=== PATIENT | female | born 1945 | race Caucasian/White ===

== ENCOUNTER 2017-05-30 17:32 | Inpatient (IN) | payer MEDICARE ==
[2017-05-30] MEDS ORDERED: SODIUM CHLORIDE 0.9% 1,000 ML IV ONE (17:58)
[2017-05-30] MEDS ORDERED: ACETAMINOPHEN TAB 500 MG TAB PO STA (17:59)
--- NOTE | 2017-05-30 18:04 | ED ---
Abdominal Pain HPI - General Chief Complaint: Abdominal Pain Stated Complaint: Kidney Stone Time Seen by Provider: 05/30/17 17:40 Source: patient, EMS, RN notes reviewed, old records reviewed Mode of arrival: EMS Limitations: no limitations - History of Present Illness Initial Comments: This is a 71-year-old female presents emergency Department from a transfer from [facility]. Patient was diagnosed with acute pyelonephritis. She reports that she has known kidney injuries and is supposed to see a repairer recreational vehicle. She reports that while at [facility] she had an ultrasound of her kidneys, and x-rays and lab work obtained. She reports that she was told that she had a worsening kidney infection. Patient states that she did receive some blood cultures and lactic acid were completed at that time. Patient was started on IV Levaquin. Was also noted the patient had poor renal function of the BUN of 45 and creatinine of 2.7. Patient had positive leukocyte esterase, multiple white blood cells, 1+ blood in her urine. Patient states that she does not know the name of her repairer recreational vehicle or urologist who she was supposed to see within the next week that is inflamed. Patient has a history of diabetes. Patient's poor report was relayed to Dr. Hart From the physician at [facility]. - Related Data Home Medications Medication Instructions Recorded Confirmed Aspirin 81 mg PO DAILY 02/05/14 04/06/14 Atenolol/Chlorthalidone [Tenoretic 1 each PO DAILY 02/05/14 04/06/14 50 Tablet] Fenofibrate [Tricor] 160 mg PO ONCE 02/05/14 04/06/14 Insuln Asp Prt/Insulin Aspart 37 unit SQ DIRECTED 02/05/14 04/06/14 [NovoLOG MIX 70-30 VIAL] Insuln Asp Prt/Insulin Aspart 65 units SQ DIRECTED 02/05/14 04/06/14 [NovoLOG MIX 70-30 VIAL] Loratadine [Claritin] 10 mg PO DAILY 02/05/14 04/06/14 Montelukast [Singulair] 10 mg PO DAILY 02/05/14 04/06/14 Pantoprazole Sodium [Protonix] 40 mg PO DAILY 02/05/14 04/06/14 metFORMIN HCL [Glucophage] 1,000 mg PO BID 02/05/14 04/06/14 Cyclobenzaprine [Flexeril] 10 mg PO DIRECTED PRN 03/17/14 04/06/14 Naproxen [Naprosyn] 250 mg PO BID 03/17/14 04/06/14 Allergies Allergy/AdvReac Type Severity Reaction Status Date / Time Penicillins Allergy Rash/Hives Verified 04/05/14 09:21 Review of Systems ROS Statement: Those systems with pertinent positive or pertinent negative responses have been documented in the HPI. ROS Other: All systems not noted in ROS Statement are negative. Past Medical History Past Medical History: Diabetes Mellitus, Eye Disorder, GERD/Reflux, Hyperlipidemia, Hypertension, Osteoarthritis (OA), Skin Disorder Additional Past Medical History / Comment(s): POST MENOPAUSAL History of Any Multi-Drug Resistant Organisms: None Reported Past Surgical History: Section, Cholecystectomy, Tonsillectomy Additional Past Surgical History / Comment(s): CATARACT SX Additional Past Anesthesia/Blood Transfusion Reaction / Comment(s): STATED " TOOK A LONG TIME WAKING UP FROM ANESTHESIA" Past Psychological History: No Psychological Hx Reported Smoking Status: Never smoker Past Alcohol Use History: None Reported Past Drug Use History: None Reported General Exam - General Exam Comments Initial Comments: Is a 71-year-old female. Patient does not appear to be in any acute distress. Limitations: no limitations General appearance: alert, in no apparent distress Head exam: Present: atraumatic, normocephalic, normal inspection Eye exam: Present: normal appearance, PERRL, EOMI. Absent: scleral icterus, conjunctival injection, periorbital swelling ENT exam: Present: normal exam Neck exam: Present: normal inspection. Absent: tenderness, meningismus, lymphadenopathy Respiratory exam: Present: normal lung sounds bilaterally. Absent: respiratory distress, wheezes, rales, rhonchi, stridor Cardiovascular Exam: Present: regular rate, normal rhythm, normal heart sounds. Absent: systolic murmur, diastolic murmur, rubs, gallop, clicks GI/Abdominal exam: Present: soft, normal bowel sounds. Absent: distended, tenderness, guarding, rebound, rigid Extremities exam: Present: normal inspection, full ROM, normal capillary refill. Absent: tenderness, pedal edema, joint swelling, calf tenderness Back exam: Present: normal inspection, CVA tenderness (L) (Left Sided CVA tenderness) Neurological exam: Present: alert, oriented X3, CN II-XII intact Psychiatric exam: Present: normal affect, normal mood Skin exam: Present: warm, dry, intact, normal color. Absent: rash Course Vital Signs 05/30/17 05/30/17 17:38 18:34 Temperature 99.2 F Pulse Rate 119 H 114 H Respiratory 18 18 Rate Blood Pressure 143/68 138/65 O2 Sat by Pulse 97 96 Oximetry Medical Decision Making - Medical Decision Making 69-year-old female with 1 day of left-sided flank pain. Patient started to have leukocytosis of 19.5. Lab work was repeated and her white blood cell call went up to 30. As well as elevated BUN/creatinine of BUN 45 and creatinine 2.7. Patient is given IV hydration. Patient was started on Levaquin. I discussed this case with our practitioner. Patient also be started on cefepime. Given Tylenol. Patient will be admitted at this time with consult for nephrology due to elevated kidney function. - Lab Data Result diagrams: 05/30/17 18:30 05/30/17 18:30 Lab Results 05/30/17 05/30/17 Range/Units 18:30 18:30 WBC 30.7 H* (3.8-10.6) k/uL RBC 3.92 (3.80-5.40) m/uL Hgb 11.6 (11.4-16.0) gm/dL Hct 34.0 (34.0-46.0) % MCV 86.7 (80.0-100.0) fL MCH 29.6 (25.0-35.0) pg MCHC 34.2 (31.0-37.0) g/dL RDW 14.0 (11.5-15.5) % Plt Count 309 (150-450) k/uL Sodium 141 (137-145) mmol/L Potassium 4.6 (3.5-5.1) mmol/L Chloride 110 H (98-107) mmol/L Carbon Dioxide 16 L (22-30) mmol/L Anion Gap 15 mmol/L BUN 47 H (7-17) mg/dL Creatinine 3.08 H (0.52-1.04) mg/dL Est GFR (MDRD) Af Amer 18 (>60 ml/min/1.73 sqM) Est GFR (MDRD) Non-Af 15 (>60 ml/min/1.73 sqM) Glucose 193 H (74-99) mg/dL Calcium 8.5 (8.4-10.2) mg/dL Total Bilirubin 0.5 (0.2-1.3) mg/dL AST 40 H (14-36) U/L ALT 36 (9-52) U/L Alkaline Phosphatase 73 (38-126) U/L Total Protein 6.3 (6.3-8.2) g/dL Albumin 3.4 L (3.5-5.0) g/dL - Radiology Data Radiology results: report reviewed Ultrasound from within the hospital was reviewed and negative for any acute process. Disposition Clinical Impression: Pyelonephritis, Acute renal insufficiency, Sepsis Disposition: ADMITTED IP TO THIS HOSP Condition: Stable Referrals: Lauren Howard NPC [Primary Care Provider] - 1-2 days Time of Disposition: 18:22
[2017-05-30] MEDS ORDERED: CEFEPIME 2 GM in SODIUM CHLORIDE 0.9% 50 ML IVPB STA (18:20)
[2017-05-30] MEDS ORDERED: MORPHINE SULFATE 4 MG/ML SYRINGE IVP STA (18:21)
[2017-05-30] MEDS ORDERED: IBUPROFEN 400 MG TAB PO PRN (18:38)
[2017-05-30] MEDS ORDERED: BISACODYL 5 MG TABLET.DR PO PRN (18:38)
[2017-05-30] MEDS ORDERED: ONDANSETRON 4 MG/2 ML VIAL IVP PRN (18:38)
[2017-05-30] MEDS ORDERED: NALOXONE 0.4 MG/ML 1 ML VIAL IV PRN (18:38)
[2017-05-30] MEDS ORDERED: MORPHINE SULFATE 4 MG/ML SYRINGE IV PRN (18:38)
[2017-05-30 18:43] LABS: CH 29.5; CHCM 34.2; HDW 3.06; HGB 11.6 gm/dL (11.4-16.0); MCH 29.6 pg (25.0-35.0); MCHC 34.2 g/dL (31.0-37.0); MCV 86.7 fL (80.0-100.0); Mean Platelet Volume 7.3; RBC 3.92 m/uL (3.80-5.40); WBC (Perox) 31.27
[2017-05-30] MEDS ORDERED: CYCLOBENZAPRINE 10 MG TAB PO PRN (18:47)
[2017-05-30 18:48] LABS: WBC 30.7 k/uL (3.8-10.6)
[2017-05-30] MEDS: SODIUM CHLORIDE 0.9% 1,000 ML IV SCH (18:51)
[2017-05-30 18:54] LABS: Calcium 8.5 mg/dL (8.4-10.2); Potassium 4.6 mmol/L (3.5-5.1); Total Bilirubin 0.5 mg/dL (0.2-1.3); Total Protein 6.3 g/dL (6.3-8.2)
[2017-05-30 19:05] LABS: Add Differential Manual Differential
[2017-05-30 19:09] LABS: Band Neutrophils % 9 %; Nucleated Red Blood Cells 0 /100 WBC (0-0); Total Cells Counted 200
[2017-05-30 19:10] LABS: Manual Review Performed; RBC Morphology Normal
[2017-05-30 19:51] VITALS: BMI 34.3
[2017-05-30 21:09] LABS: Glucose,Whole Blood 166 mg/dL (75-99)
[2017-05-30] MEDS: INSULIN LISPRO (humaLOG) 300 UNIT/3 ML VIAL SQ SCH (21:29)
[2017-05-30] MEDS: metFORMIN 500 MG TAB PO SCH ×2 (21:30→21:34)
[2017-05-30 23:02] LABS: Appearance,Urine Cloudy (Clear); Bilirubin,Urine Negative (Negative); Glucose,Urine (UA) 1+ (Negative); Ketones,Urine Negative (Negative); Leukocyte Esterase,Urine Large (Negative); Mucus,Urine Rare /hpf; Nitrite,Urine Negative (Negative); Particle Count 3258; Protein,Urine 2+ (Negative); RBC,Urine 11 /hpf (0-5); Specific Gravity,Urine 1.009 (1.001-1.035); Squamous Epithelial Cell,Urine 2 /hpf (0-4); UA Billing (MACRO vs. MICRO) MICRO; Urobilinogen,Urine <2.0 mg/dL (<2.0); WBC,Urine >182 /hpf (0-5)
[2017-05-31] MEDS: SODIUM CHLORIDE 0.9% 1,000 ML IV SCH ×3 (02:35→21:49)
[2017-05-31] MEDS: MAGNESIUM OXIDE 400 MG TAB PO SCH ×3 (02:36→21:36)
[2017-05-31 07:14] LABS: Glucose,Whole Blood 234 mg/dL (75-99)
[2017-05-31] MEDS: INSULIN LISPRO (humaLOG) 300 UNIT/3 ML VIAL SQ SCH ×4 (08:45→21:35)
[2017-05-31] MEDS: FERROUS SULFATE 325 MG TAB PO SCH (08:57)
[2017-05-31] MEDS: ASPIRIN 81 MG CHEW PO SCH (08:57)
[2017-05-31] MEDS: GABAPENTIN 100 MG CAP PO SCH (08:58)
[2017-05-31] MEDS: ATENOLOL 50 MG TAB PO SCH (08:58)
[2017-05-31] MEDS: MULTIVITAMINS, THERA 1 EACH TAB PO SCH (08:58)
[2017-05-31] MEDS: FENOFIBRATE 160 MG TAB PO SCH (08:58)
[2017-05-31] MEDS: MONTELUKAST 10 MG TAB PO SCH (08:58)
[2017-05-31] MEDS: ATORVASTATIN 10 MG TAB PO SCH (08:59)
[2017-05-31] MEDS: CHLORTHALIDONE 25 MG TAB PO SCH (08:59)
[2017-05-31] MEDS: LORATADINE 10 MG TAB PO SCH (08:59)
[2017-05-31] MEDS: HEPARIN SODIUM,PORCINE 5,000 UNIT/ML 1 ML VIAL SQ SCH ×2 (08:59→21:36)
[2017-05-31] MEDS ORDERED: INSULIN LISPRO (humaLOG) 300 UNIT/3 ML VIAL SQ SCH ×2 (09:00→21:00)
[2017-05-31] MEDS ORDERED: CEFEPIME 2 GM in SODIUM CHLORIDE 0.9% 50 ML IVPB SCH (09:00)
[2017-05-31] MEDS ORDERED: PANTOPRAZOLE 40 MG/10 ML VIAL IV SCH (09:00)
[2017-05-31] MEDS ORDERED: NON-FORMULARY DRUG (Atenolol/Chlorthalidone [Atenolol-Chlorthalidone 50-25] 1 TAB) PO SCH (09:00)
[2017-05-31] MEDS ORDERED: PANTOPRAZOLE 40 MG TABLET PO SCH (09:00)
[2017-05-31] MEDS: INSULIN NPL/INSULIN LISPRO 100 UNIT/ML 10 ML VIAL (Humalog 75/25) SQ SCH ×2 (10:20→21:34)
--- NOTE | 2017-05-31 10:39 | HP ---
HISTORY AND PHYSICAL DATE OF SERVICE: 05/30/2017. CHIEF COMPLAINT: Abdominal pain. HISTORY OF PRESENT ILLNESS: This 71-year-old woman with a past medical history of multiple medical problems including diabetes mellitus, hypertension, hyperlipidemia, history of DJD, history of being followed by Dr. Lauren Howard in the outpatient setting is complaining of abdominal pain. The patient apparently had pain in the left loin area, which was radiating into the groin area. The patient was seen by [facility] and transferred to [facility] for further evaluation and treatment. The patient also had renal failure, reported to be acute kidney injury. The patient had ultrasound of the kidneys. The creatinine was found to be around 3.08 on admission. White count is also elevated. The previous creatinine was 1.4 in 2014. There is no history of any rigors, chills. No history of headache, loss of consciousness or seizures. PAST MEDICAL HISTORY: History of diabetes, hypertension, hyperlipidemia, DJD, section. MEDICATIONS: Medications prior to admission include home medication: 1. Magnesium oxide 400 mg p.o. b.i.d. 2. Protonix 40 mg daily. 3. Multivitamins 1 p.o. daily. 4. Singular 10 mg q.h.s. 5. Humalog 60 q.a.m. 6. Humalog 30 subcu q.h.s. 7. Motrin 800 mg t.i.d. p.r.n. 8. Neurontin 100 mg p.o. daily. 9. Iron sulfate 650 mg p.o. daily. 10.Tricor 160 mg daily. 11.Lipitor 10 mg. 12.Atenolol chlorthalidone 50/25 p.o. daily. 13.Aspirin 81 mg p.o. daily. ALLERGIES: PENICILLIN. FAMILY HISTORY: No history of heart disease or strokes in the family. SOCIAL HISTORY: No history of smoking, no history of alcohol. REVIEW OF SYSTEMS: ENT: No diminished hearing or vision. CARDIOVASCULAR: No angina. RESPIRATORY: No cough or hemoptysis. GI: As mentioned earlier. : As mentioned earlier. NERVOUS SYSTEM: No numbness or weakness. ALLERGY/IMMUNOLOGY: No asthma or hayfever. MUSCULOSKELETAL: As mentioned earlier. ENDOCRINE: History of diabetes mellitus. CONSTITUTIONAL: As mentioned earlier. DERMATOLOGY: Negative. RHEUMATOLOGY: Negative. PSYCHIATRY: As mentioned earlier. PHYSICAL EXAMINATION: Patient is alert and oriented x3. Pulse is 108, blood pressure 120/58, respirations 16, temperature 98.6, pulse ox 97% on room air. HEENT: Conjunctivae normal. NECK: No jugular venous distention. No carotid bruit. No lymph node enlargement. CARDIOVASCULAR: S1, S2 muffled. No S3, S4. RESPIRATORY: Breath sounds diminished at the bases. A few scattered rhonchi. No crackles. ABDOMEN: Soft. Obese. Tenderness in the left renal angle present. Some tenderness in the anterior abdomen. No guarding, no rigidity. No mass is appreciated. Bowel sounds present. No ascites. No hepatosplenomegaly. LEGS: No edema, no swelling. NERVOUS SYSTEM: Higher functions as mentioned. Moves all four limbs. No focal deficits. LYMPHATICS: No lymphadenopathy in the neck, axillae, groin. SKIN: No rash, ulcer, bleeding. JOINTS: No active deforming arthroplasty. LABS: WBC 13.7, creatinine 3.08. ASSESSMENT: 1. Acute pyelonephritis left with a possible sepsis. 2. Increased WBC. 3. Increased creatinine with acute kidney failure, multifactorial. 4. Nephrolithiasis. 5. Diabetes type 2. 6. Gastroesophageal reflux disease. 7. Hypertension. 8. Hyperlipidemia. 9. History of degenerative joint disease. RECOMMENDATIONS AND DISCUSSION: In this 71-year-old woman who presented with multiple complex medical issues, will monitor the patient closely. Continue the current medications, continue symptomatic treatment. Otherwise at this time, I recommend IV fluids, broad-spectrum IV antibiotics. Nephrology consultations. Infectious disease evaluation. I will obtain cultures. Guarded prognosis because of multiple complex medical issues. Further recommendations to follow. Symptomatic treatment. Monitor blood pressures closely. DVT prophylaxis. Further recommendations to follow. Prognosis is guarded. MMODL / IJN: [id number] / MTDD
[2017-05-31 11:58] LABS: Glucose,Whole Blood 196 mg/dL (75-99)
[2017-05-31] MEDS: IOHEXOL 350 MG/ML 25 ML BOTTLE (ORAL USE) PO PRN ×2 (13:04→13:59)
[2017-05-31 14:11] LABS: Hemoglobin A1C 6.5 % (4.2-6.1)
--- NOTE | 2017-05-31 14:50 | CT ---
EXAMINATION TYPE: CT abdomen pelvis wo con DATE OF EXAM: 05/31/2017 COMPARISON: NONE HISTORY: Stomach pains,left pyelo CT DLP: 1357.3 mGycm Examination of the solid and hollow viscera is limited given the lack of contrast. FINDINGS: LUNG BASES: No evidence for nodule. No evidence for infiltrate. LIVER/GB: Cholecystectomy clips are in place. No space-occupying hepatic lesion. PANCREAS: No pancreatic mass identified. No inflammatory process seen. SPLEEN: No evidence for splenomegaly. No intrasplenic lesions seen. ADRENALS: No adrenal nodules identified. No evidence for thickening. KIDNEYS: Small nonobstructing renal calculi bilaterally. Kidneys are lobulated. No evidence for hydro nephrosis. No obvious solid renal mass on this limited examination. BOWEL: Appendix has a normal appearance. No evidence of bowel obstruction. No inflammatory process. Lymph nodes: No evidence for adenopathy greater than 1 cm. Abdominal aorta: Atheromatous changes seen. No evidence for aneurysm. Genital organs: Small uterine myometrial calcifications. Other: No significant abnormality. IMPRESSION: 1. SMALL NONOBSTRUCTING BILATERAL NEPHROLITHIASIS WITHOUT HYDRONEPHROSIS. RENAL LOBULATION DISCUSS ED ABOVE. CORRELATE CLINICALLY FOR PYELONEPHRITIS.
[2017-05-31 17:19] LABS: Glucose,Whole Blood 130 mg/dL (75-99)
[2017-05-31] MEDS: cefTRIAXone 2,000 MG in SODIUM CHLORIDE 0.9% 100 ML IVPB SCH (18:04)
--- NOTE | 2017-05-31 19:14 | CONS ---
CONSULTATION DATE OF SERVICE: 05/31/2017 REASON FOR CONSULTATION: Pyelonephritis. HISTORY OF PRESENT ILLNESS: Patient is a 71-year-old female who presented to [facility] yesterday with the chief complaint of pain in the abdominal area. The patient said the pain started yesterday; has been dull aching pain located in the lower abdominal area and some in the flank on the right side with an intensity of about 4 to 5 and radiation to the groin area. The patient felt nauseated but had no vomiting. Denies having any diarrhea or constipation. Apparently the patient was evaluated at [facility], where she was noted to have possible urinary tract infection with worsening of the kidney function. She did receive a dose of Levaquin and was sent to [facility] for further evaluation. Patient has been evaluated by the ER physician. On arrival in the ER, the patient had an elevated fever of 99.2. Urine has been significantly positive with large leukocyte esterase with many WBCs with a white count of 30,000. Cefepime was added and ID was consulted for further recommendations regarding antibiotic therapy. She also had an elevated creatinine of 3.08. REVIEW OF SYSTEMS: CONSTITUTIONAL: Positive for weakness and chills. EYES: No complaint. ENT: No complaint. RESPIRATORY: No complaint. CARDIOVASCULAR: No complaint. GENITOURINARY: As per HPI. GASTROINTESTINAL: As per HPI. MUSCULOSKELETAL: No complaint. INTEGUMENTARY: No complaint. PSYCHOLOGICAL: No complaint. ENDOCRINE: No complaint. NEUROLOGICAL: No complaint. PAST MEDICAL HISTORY: Past medical history is significant for: 1. Hypertension. 2. Hyperlipidemia. 3. Gastroesophageal reflux disease. 4. Diabetes mellitus. 5. Osteoarthritis. PAST SURGICAL HISTORY: 1. . 2. Cholecystectomy. 3. Tonsillectomy. 4. Cataract surgery. SOCIAL HISTORY: No history of smoking, drinking or any drug use. FAMILY HISTORY: No pertinent findings were noted. ALLERGIES: PENICILLIN, which she described as a rash when she was a child and localized; however, she has subsequently taken amoxicillin without any problem. Clinically doubt true penicillin allergy. CURRENT MEDICATION: Medications currently include: 1. Tylenol. 2. Aspirin. 3. Tenormin. 4. Lipitor. 5. Cefepime 2 grams q.12. 6. Chlorthalidone. 7. Lofibra. 8. Iron sulfate. 9. Neurontin. 10.Heparin. 11.Motrin. 12.Humalog. 13.Claritin. 14.Mag oxide. 15.Singulair. 16.Morphine sulfate. 17.Narcan. 18.Protonix. PHYSICAL EXAMINATION: Blood pressure is 148/70 with a pulse of 90, temperature 98. She is 98% on room air. General description is an elderly female lying in bed in no distress. No tachypnea or accessory muscle of respiration use. HEENT examination shows slight pallor. No scleral icterus. Oral mucosa membrane is dry. NECK: Trachea is central. No thyromegaly. LUNGS: Unlabored breathing. Clear to auscultation anteriorly. No wheeze or crackle. HEART: S1, S2. Regular rate and rhythm. No added sound. ABDOMEN: Soft. No tenderness. No guarding or rigidity. EXTREMITIES: No edema of feet. SKIN EXAMINATION: No rash or mass palpable. Neurologically the patient is awake, alert, oriented x3. Mood and affect normal. LABS: BUN of 47 with a creatinine of 3.08. Hemoglobin is 11.6. White count of 30,000. Urine has been significantly positive. Blood and urine cultures are currently pending. DIAGNOSTIC IMPRESSION AND PLAN: 1. Patient presented to hospital with abdominal pain, fever with significantly elevated white count and positive ( ) a pyelonephritis, right side, likely from ( ) Gram-negative pathogen in a patient who has not been on antibiotic in the recent past. Could be more likely a sensitive pathogen such as an E coli. 2. Patient with a PENICILLIN allergy who subsequently tolerated amoxicillin. Clinically doubt true penicillin allergy. PLAN: 1. We will start the patient on Rocephin 2 grams IV piggyback daily and discontinue cefepime. 2. Gentle IV fluid. 3. Depending upon the clinical response as well as cultures, will adjust antibiotics further if needed. Thank you for this consultation. Will follow this patient along with you. MMODL / IJN: [id number] /
[2017-05-31 20:36] LABS: Glucose,Whole Blood 177 mg/dL (75-99)
[2017-05-31] MEDS: ACETAMINOPHEN TAB 325 MG TAB PO PRN (21:48)
--- NOTE | 2017-05-31 22:56 | PN ---
PROGRESS NOTE DATE OF SERVICE: 05/31/2017 This 71-year-old woman who was admitted with acute pyelonephritis on the left with possible sepsis is improving significantly. Cultures are negative so far. The patient is still complaining of some abdominal pain. A CT scan of the abdomen and pelvis was requested which showed small non-obstructing bilateral nephrolithiasis without any hydronephrosis. Renal lobulation was discussed. No chest pain. No palpitations. PHYSICAL EXAM: Alert, oriented x3. Pulse is 107, blood pressure 148/70, respiration 15, temperature 98 degrees, pulse ox 98% on room air. HEENT: Conjunctivae normal. NECK: No jugular venous distention. CARDIOVASCULAR SYSTEM: S1, S2 muffled. RESPIRATION: Breath sounds diminished at the bases. No rhonchi. No crackles. ABDOMEN: Soft, non-tender. No mass palpable. LEGS: No edema. No swelling. NERVOUS SYSTEM: No focal deficit. LABS: Accu-Cheks are noted. WBC 30.7. ASSESSMENT: 1. Acute left pyelonephritis with possible sepsis. 2. Increased white count. 3. Increased creatinine with acute kidney failure, multifactorial. 4. Nephrolithiasis, bilateral .. 5. Diabetes mellitus, type 2. 6. Gastroesophageal reflux disease. 7. Hypertension. 8. Hyperlipidemia. 9. History of degenerative joint disease. RECOMMENDATIONS AND DISCUSSION: I recommend to continue current medication, continue symptomatic treatment. Continue with antibiotics. Guarded prognosis. Further recommendations to follow. MMODL / IJN: [id number] /
[2017-06-01] MEDS: SODIUM CHLORIDE 0.9% 1,000 ML IV SCH ×2 (05:38→14:19)
[2017-06-01 07:01] LABS: Basophils # (A) 0.1 k/uL (0-0.2); Basophils % (A) 0 %; CH 30.2; CHCM 34.3; Eosinophils # (A) 0.8 k/uL (0-0.7); Eosinophils % (A) 5 %; HCT 29.1 % (34.0-46.0); HDW 3.01; Luc # (Auto) 0.22; Luc % (Auto) 2; Lymphocytes # (A) 2.3 k/uL (1.0-4.8); Lymphocytes % (A) 16 %; MCH 28.8 pg (25.0-35.0); MCHC 32.5 g/dL (31.0-37.0); MCV 88.6 fL (80.0-100.0); Monocytes # (A) 0.7 k/uL (0-1.0); Monocytes % (A) 5 %; Neutrophils # (A) 10.2 k/uL (1.3-7.7); Neutrophils % (A) 72 %; RBC 3.29 m/uL (3.80-5.40); RDW 14.6 % (11.5-15.5); WBC 14.3 k/uL (3.8-10.6); WBC (Perox) 13.91
[2017-06-01 07:06] LABS: HGB 9.5 gm/dL (11.4-16.0)
[2017-06-01 07:26] LABS: Glucose,Whole Blood 81 mg/dL (75-99)
[2017-06-01 07:29] LABS: Calcium 8.3 mg/dL (8.4-10.2)
[2017-06-01] MEDS: INSULIN LISPRO (humaLOG) 300 UNIT/3 ML VIAL SQ SCH ×4 (08:00→21:22)
[2017-06-01] MEDS: LORATADINE 10 MG TAB PO SCH (08:03)
[2017-06-01] MEDS: MAGNESIUM OXIDE 400 MG TAB PO SCH ×2 (08:04→21:23)
[2017-06-01] MEDS: PANTOPRAZOLE 40 MG TABLET PO SCH (08:04)
[2017-06-01] MEDS: FERROUS SULFATE 325 MG TAB PO SCH (08:04)
[2017-06-01] MEDS: MULTIVITAMINS, THERA 1 EACH TAB PO SCH (08:04)
[2017-06-01] MEDS: ATENOLOL 50 MG TAB PO SCH (08:04)
[2017-06-01] MEDS: ASPIRIN 81 MG CHEW PO SCH (08:04)
[2017-06-01] MEDS: MONTELUKAST 10 MG TAB PO SCH (08:04)
[2017-06-01] MEDS: ATORVASTATIN 10 MG TAB PO SCH (08:04)
[2017-06-01] MEDS: GABAPENTIN 100 MG CAP PO SCH (08:04)
[2017-06-01] MEDS: CHLORTHALIDONE 25 MG TAB PO SCH (08:04)
[2017-06-01] MEDS: FENOFIBRATE 160 MG TAB PO SCH (08:04)
[2017-06-01] MEDS: HEPARIN SODIUM,PORCINE 5,000 UNIT/ML 1 ML VIAL SQ SCH ×2 (08:05→21:22)
[2017-06-01] MEDS: cefTRIAXone 2,000 MG in SODIUM CHLORIDE 0.9% 100 ML IVPB SCH (08:05)
[2017-06-01] MEDS: INSULIN NPL/INSULIN LISPRO 100 UNIT/ML 10 ML VIAL (Humalog 75/25) SQ SCH ×2 (08:19→21:21)
--- NOTE | 2017-06-01 10:39 | CONS ---
CONSULTATION REASON FOR CONSULT: Renal failure. DATE OF CONSULTATION: 05/31/2017. HISTORY OF PRESENT ILLNESS: The patient is a 71-year-old female who was admitted to the hospital with complaints of pain on her left side of the abdomen somewhat towards the back with no radiation to the groin. The patient has not had any significant urinary symptoms. She initially presented to [facility] and was then transferred to [facility]. She was found to have a serum creatinine of 3.0 mg/dL. From the notes, it appears that previously her creatinine was 1.4 on 05/18/2015. The patient denies any kidney disease in the past. She denies use of any nonsteroidal anti-inflammatory agents prior to admission. Currently patient is voiding well. She is maintained on IV fluids and IV antibiotics. I do see Motrin on her current med list as well. The patient's urine culture is currently pending. However, her UA is highly suggestive of underlying urinary tract infection with WBCs more than 182 and WBC clumps noted. Her white cell count was significantly elevated at 30.7. PAST MEDICAL HISTORY: Hypertension, type 2 diabetes, hyperlipidemia, osteoarthritis. HOME MEDICATIONS: Prior to admission include insulin, Protonix, Singulair, magnesium, Motrin, Neurontin, iron, Tricor, Lipitor, atenolol, hydrochlorothiazide, aspirin. ALLERGIES: PENICILLIN. SOCIAL HISTORY: Negative for smoking, drug abuse or alcohol abuse. REVIEW OF SYSTEMS: As per HPI. Other systems negative. LABS: Sodium 141, potassium 4.6, chloride 110, CO2 16, BUN 47, serum creatinine 3.08, hemoglobin 11.6, white cell count 30.7. UA shows more than 182 WBCs with multiple WBC clumps. The abdominal CT shows nonobstructing bilateral nephrolithiasis without hydronephrosis. ASSESSMENT: 1. Acute kidney injury associated with current ongoing infection and a urinary tract infection, also exacerbated by use of nonsteroidal anti-inflammatory agents. I do see the Motrin on her current med list which I will discontinue. We will continue with the IV fluids and repeat labs in a.m. Avoid hypotension. Currently, blood pressure is not low. The patient is not on any other nephrotoxic agents. We can also hold the chlorthalidone as we are currently hydrating. 2. Urinary tract infection. Urine culture currently pending. Patient is maintained on IV antibiotics. 3. Bilateral nonobstructive nephrolithiasis with no evidence of hydronephrosis noted on CT scan. This may need further workup, which can be done as outpatient once this acute episode has resolved. 4. Type 2 diabetes, maintained on insulin at home. 5. Hyperlipidemia. PLAN: JEFRY Motrin. JEFRY chlorthalidone. Continue IV fluids and continue antibiotics and repeat labs in a.m. Thank you for this consultation. We will continue to follow the patient with you during her hospitalization. JAI / BLESSINGN: [id number] /
[2017-06-01 11:57] LABS: Glucose,Whole Blood 52 mg/dL (75-99)
[2017-06-01 11:57] LABS: Glucose,Whole Blood 70 mg/dL (75-99)
[2017-06-01 17:23] LABS: Glucose,Whole Blood 93 mg/dL (75-99)
--- NOTE | 2017-06-01 17:53 | PN ---
PROGRESS NOTE DATE OF VISIT: 06/01/2017 This 71-year-old woman who was admitted with left pyelonephritis with possible sepsis, also had renal failure. The patient was closely monitored. The patient is on IV fluids. No chest pain or palpitation. No fever. PHYSICAL EXAMINATION: On exam, alert and oriented x3. Pulse 72, blood pressure 120/59, respirations 17, temperature 97.5, pulse ox 98% on room air. HEENT: Conjunctivae normal. NECK: No jugular venous distention. CARDIOVASCULAR: S1 and S2 muffled. RESPIRATORY: Breath sounds diminished at the bases. Scattered rhonchi. No crackles. Abdomen is soft, nontender, no mass palpable. LEGS: No edema. NERVOUS SYSTEM; No focal deficits. LABS: WBC 14.3, hemoglobin 9.5. Creatinine is 2.40. ASSESSMENT: 1. Acute left pyelonephritis with possible sepsis, present on admission. 2. Acute renal failure possibly prerenal renal failure with acute tubular necrosis. 3. Increased WBC. 4. Nephrolithiasis, bilateral. 5. Diabetes mellitus type 2. 6. Gastroesophageal reflux disease. 7. Hypertension. 8. Hyperlipidemia. 9. History of degenerative joint disease. RECOMMENDATIONS AND DISCUSSION: Recommend to continue current medications. Continue with monitoring and symptomatic treatment. Otherwise, continue with IV fluids. Repeat labs. Continue with the antibiotics. Patient is on IV Rocephin 2 grams daily. Follow the cultures. Nephrology input appreciated. Guarded prognosis. Further recommendations to follow. MMODL / BLESSINGN: [id number] /
[2017-06-01 20:27] LABS: Glucose,Whole Blood 133 mg/dL (75-99)
[2017-06-01] MEDS: Acetaminophen-Codeine 300-30mg TAB PO PRN (21:23)
[2017-06-02] MEDS: SODIUM CHLORIDE 0.9% 1,000 ML IV SCH ×4 (02:10→17:17)
[2017-06-02 06:44] LABS: Basophils # (A) 0.1 k/uL (0-0.2); Basophils % (A) 1 %; CH 29.6; CHCM 33.4; Eosinophils % (A) 6 %; HCT 30.7 % (34.0-46.0); HDW 3.02; HGB 10.1 gm/dL (11.4-16.0); Luc # (Auto) 0.23; Luc % (Auto) 1; Lymphocytes # (A) 2.6 k/uL (1.0-4.8); Lymphocytes % (A) 16 %; MCH 29.4 pg (25.0-35.0); MCV 89.2 fL (80.0-100.0); Mean Platelet Volume 7.9; Monocytes # (A) 0.7 k/uL (0-1.0); Monocytes % (A) 4 %; Neutrophils # (A) 11.9 k/uL (1.3-7.7); Neutrophils % (A) 72 %; RBC 3.44 m/uL (3.80-5.40); RDW 14.7 % (11.5-15.5); WBC 16.4 k/uL (3.8-10.6); WBC (Perox) 17.43
[2017-06-02 06:59] LABS: Calcium 8.4 mg/dL (8.4-10.2); Potassium 4.2 mmol/L (3.5-5.1)
[2017-06-02 07:28] LABS: Glucose,Whole Blood 72 mg/dL (75-99)
[2017-06-02] MEDS: INSULIN LISPRO (humaLOG) 300 UNIT/3 ML VIAL SQ SCH ×4 (08:18→21:14)
[2017-06-02] MEDS: PANTOPRAZOLE 40 MG TABLET PO SCH (08:19)
[2017-06-02] MEDS: ASPIRIN 81 MG CHEW PO SCH (08:19)
[2017-06-02] MEDS: MONTELUKAST 10 MG TAB PO SCH (08:19)
[2017-06-02] MEDS: ATENOLOL 50 MG TAB PO SCH (08:20)
[2017-06-02] MEDS: CHLORTHALIDONE 25 MG TAB PO SCH (08:20)
[2017-06-02] MEDS: FENOFIBRATE 160 MG TAB PO SCH (08:20)
[2017-06-02] MEDS: cefTRIAXone 2,000 MG in SODIUM CHLORIDE 0.9% 100 ML IVPB SCH (08:20)
[2017-06-02] MEDS: ATORVASTATIN 10 MG TAB PO SCH (08:20)
[2017-06-02] MEDS: FERROUS SULFATE 325 MG TAB PO SCH (08:20)
[2017-06-02] MEDS: MAGNESIUM OXIDE 400 MG TAB PO SCH ×2 (08:21→21:16)
[2017-06-02] MEDS: LORATADINE 10 MG TAB PO SCH (08:21)
[2017-06-02] MEDS: GABAPENTIN 100 MG CAP PO SCH (08:21)
[2017-06-02] MEDS: HEPARIN SODIUM,PORCINE 5,000 UNIT/ML 1 ML VIAL SQ SCH ×2 (08:21→21:16)
[2017-06-02] MEDS: MULTIVITAMINS, THERA 1 EACH TAB PO SCH (08:22)
[2017-06-02] MEDS: INSULIN NPL/INSULIN LISPRO 100 UNIT/ML 10 ML VIAL (Humalog 75/25) SQ SCH ×2 (08:38→21:14)
[2017-06-02] MEDS: Acetaminophen-Codeine 300-30mg TAB PO PRN ×2 (11:03→21:15)
[2017-06-02 11:07] LABS: Glucose,Whole Blood 81 mg/dL (75-99)
--- NOTE | 2017-06-02 15:03 | PN ---
PROGRESS NOTE Patient is seen for followup for acute kidney injury. She has been maintained on IV fluids. Serum creatinine has improved to 2.2 mg/dL. Currently, there are no fluids running. Patient has tolerated oral intake. She is maintained on ceftriaxone. Urine culture drawn sent out from here did not reveal any growth. However, patient had already received antibiotics I believe. Initial creatinine was 3 mg/dL. The CT scan did not reveal any significant findings in the kidney except from bilateral small nonobstructive calculi. EXAMINATION: Patient is comfortable. Blood pressure is 146/69, heart rate 71 per minute. She is afebrile. Examination of the heart S1, S2. Examination lungs bilateral breath sounds are heard. ABDOMEN: Soft, nontender. Exam of lower extremities shows edema 1+ bilaterally mainly in the ankles. LIFT [employer] O[employer]ATOR exam is grossly intact. LABS: Shows sodium 144, potassium 4.2, chloride 119, CO2 is 15, BUN 30, serum creatinine 2.2. Hemoglobin 10.1 g/dL. ASSESSMENT: 1. Acute kidney injury secondary to NSAIDs, currently improving. The IV fluids have been discontinued, which is appropriate. Patient is encouraged to maintain good oral intake and continue to avoid use of NSAIDs. She will need followup as outpatient if she is discharged today. 2. Non gap metabolic acidosis secondary to renal failure, currently stable. 3. Nonobstructive calculi bilaterally. No evidence of hydronephrosis on the CAT scan. 4. Urinary tract infection with current urine culture not growing any bacteria. However, I believe patient already received antibiotics prior to her arrival to [place]. Since she was a transfer from [facility]. PLAN: Patient can be discharged home and follow up as outpatient. MMODL / IJN: [id number] /
[2017-06-02 17:43] LABS: Glucose,Whole Blood 89 mg/dL (75-99)
[2017-06-02 20:13] LABS: Glucose,Whole Blood 193 mg/dL (75-99)
--- NOTE | 2017-06-02 20:39 | PN ---
PROGRESS NOTE DATE OF SERVICE: 06/02/2017 This is a progress note. INTERVAL HISTORY: This 71-year-old woman who was admitted with left side pyelonephritis, also had a possible early sepsis. The patient has acute renal failure. Creatinine is improving significantly. No chest pain. No palpitations. Patient on broad-spectrum IV antibiotics. The cultures are negative so far. Nephrology following the patient. EXAM: Alert and oriented times three. Pulse 70. Blood pressure 158/69, respiratory rate 16, temperature 98.2, pulse ox 98% on room air. HEENT: Conjunctivae normal. Neck: No jugular venous distention. Cardiovascular: S1, S2 muffled. Respiratory: Breath sounds diminished at the bases. No rhonchi. No crackles. Abdomen is soft, nontender. No mass palpable. No renal angle tenderness. Central nervous system: No focal deficits. LABS: WBC 16.2, hemoglobin 10.1, creatinine is 2.20, abdominal pelvis CAT scan noted. ASSESSMENT: 1. Acute left pyelonephritis with sepsis present on admission. 2. Acute renal failure possibly prerenal renal failure with acute tubular necrosis. Present on admission. 3. Increased WBC. 4. History of nephrolithiasis bilaterally. 5. Diabetes type 2. 6. Gastroesophageal reflux disease. 7. Hypertension. 8. Hyperlipidemia. 9. History of degenerative joint disease. RECOMMENDATIONS AND DISCUSSION: Recommend to continue current medications and symptomatic treatment. Monitor closely and continue IV fluids. Monitor creatinine closely. Closely follow with Nephrology. Guarded prognosis. Further recommendations to follow. MMTIFFANIEL / BLESSINGN: [id number] /
--- NOTE | 2017-06-03 06:34 | PN ---
PROGRESS NOTE DATE OF SERVICE: 06/02/2017 REASON FOR FOLLOWUP: Urinary tract infection and pyelonephritis. INTERVAL HISTORY: The patient is afebrile. She is breathing comfortably. Denies chest pain, shortness of breath or cough. Abdominal pain has resolved. No nausea, vomiting, or any diarrhea/ PHYSICAL EXAMINATION: On examination, the patient's blood pressure 169/74 with a pulse of 78, temperature 98.5. She is 98% on room air. General description is an elderly female up in the bed in no distress. RESPIRATORY SYSTEM: Unlabored breathing. Clear to auscultation anteriorly. HEART: S1, S2. Regular rate and rhythm. ABDOMEN: Soft, no tenderness. LABS: Hemoglobin is 10.1, white count 16.4 with a BUN of 30 creatinine 2.20. DIAGNOSTIC IMPRESSION AND PLAN: Patient admitted to the hospital with abdominal pain and the patient did have a component of pyelonephritis. The patient seems to be responding to the Rocephin and will be continued while waiting for the culture to finalize. MMODL / IJN: [id number] /
[2017-06-03 07:11] LABS: Glucose,Whole Blood 78 mg/dL (75-99)
[2017-06-03 07:17] LABS: Basophils # (A) 0.1 k/uL (0-0.2); Basophils % (A) 1 %; CH 29.9; CHCM 33.7; Eosinophils % (A) 6 %; HCT 31.2 % (34.0-46.0); HDW 2.98; HGB 10.2 gm/dL (11.4-16.0); Luc # (Auto) 0.25; Luc % (Auto) 2; Lymphocytes # (A) 2.8 k/uL (1.0-4.8); Lymphocytes % (A) 17 %; MCH 29.2 pg (25.0-35.0); MCHC 32.7 g/dL (31.0-37.0); MCV 89.3 fL (80.0-100.0); Monocytes # (A) 0.7 k/uL (0-1.0); Monocytes % (A) 4 %; Neutrophils # (A) 11.4 k/uL (1.3-7.7); Neutrophils % (A) 70 %; RDW 14.9 % (11.5-15.5); WBC 16.3 k/uL (3.8-10.6); WBC (Perox) 16.06
[2017-06-03] MEDS: INSULIN LISPRO (humaLOG) 300 UNIT/3 ML VIAL SQ SCH ×4 (07:33→20:58)
[2017-06-03 07:38] LABS: Calcium 8.7 mg/dL (8.4-10.2); Potassium 4.6 mmol/L (3.5-5.1)
[2017-06-03] MEDS: PANTOPRAZOLE 40 MG TABLET PO SCH (07:50)
[2017-06-03] MEDS: ACETAMINOPHEN TAB 325 MG TAB PO PRN (07:50)
[2017-06-03] MEDS: ASPIRIN 81 MG CHEW PO SCH (07:50)
[2017-06-03] MEDS: HEPARIN SODIUM,PORCINE 5,000 UNIT/ML 1 ML VIAL SQ SCH ×2 (07:50→20:58)
[2017-06-03] MEDS: ATENOLOL 50 MG TAB PO SCH (07:50)
[2017-06-03] MEDS: FERROUS SULFATE 325 MG TAB PO SCH (07:50)
[2017-06-03] MEDS: cefTRIAXone 2,000 MG in SODIUM CHLORIDE 0.9% 100 ML IVPB SCH (07:50)
[2017-06-03] MEDS: ATORVASTATIN 10 MG TAB PO SCH (07:50)
[2017-06-03] MEDS: GABAPENTIN 100 MG CAP PO SCH (07:51)
[2017-06-03] MEDS: FENOFIBRATE 160 MG TAB PO SCH (07:51)
[2017-06-03] MEDS: MULTIVITAMINS, THERA 1 EACH TAB PO SCH (07:51)
[2017-06-03] MEDS: CHLORTHALIDONE 25 MG TAB PO SCH (07:51)
[2017-06-03] MEDS: LORATADINE 10 MG TAB PO SCH (07:51)
[2017-06-03] MEDS: MONTELUKAST 10 MG TAB PO SCH (07:52)
[2017-06-03] MEDS: MAGNESIUM OXIDE 400 MG TAB PO SCH ×2 (07:52→20:58)
[2017-06-03] MEDS: INSULIN NPL/INSULIN LISPRO 100 UNIT/ML 10 ML VIAL (Humalog 75/25) SQ SCH ×2 (09:34→20:56)
[2017-06-03 11:38] LABS: Glucose,Whole Blood 101 mg/dL (75-99)
[2017-06-03] MEDS: SODIUM CHLORIDE 0.9% 1,000 ML IV SCH ×2 (11:51→20:48)
[2017-06-03] MEDS: Acetaminophen-Codeine 300-30mg TAB PO PRN ×2 (13:36→22:11)
[2017-06-03 17:42] LABS: Glucose,Whole Blood 123 mg/dL (75-99)
--- NOTE | 2017-06-03 18:23 | P.PN ---
Subjective Date of service 06/03/2017. Progress note being dictated for Dr. Mendez. Interval history: This is a 71-year-old female admitted with acute left pyelonephritis with sepsis, acute renal failure and multiple other medical issues. Maintained on IV antibiotics of Rocephin as per infectious disease. Renal function improving, afebrile, persistent elevated WBC ;16.3. Complained of dizziness, negative for orthostatic hypotension. Good diet intake. Denies abdominal or flank pain. Objective - Vital Signs Vital signs: Vital Signs Temp 98.6 F 06/03/17 15:00 Pulse 73 06/03/17 15:00 Resp 18 06/03/17 15:11 BP 190/84 06/03/17 15:00 Pulse Ox 98 06/03/17 15:00 Intake & Output 06/02/17 06/03/17 06/03/17 18:59 06:59 18:59 Intake Total 2340 1920 480 Output Total 2 2 Balance 2338 1920 478 Weight 87.997 kg Intake: IV 1440 1920 480 Sodium Chloride 0.9% 1, 1440 1920 480 000 ml @ 120 mls/hr IV . Q8H20M [place] Rx#:[id number] Intake, IV Titration 100 Amount cefTRIAXone 2,000 mg In 100 Sodium Chloride 0.9% 100 ml @ 100 mls/hr IVPB Q24HR [place] Rx#:[id number] Oral 800 Output: Stool 2 2 Other: Voiding Method Bedside Commode Bedside Commode Bedside Commode # Voids 4 4 4 # Bowel Movements 4 - Exam PHYSICAL EXAM: VITAL SIGNS: As above GENERAL: Sitting up at side of bed, no acute distress. HEENT: Conjunctivae normal. eyes normal. NECK: No JVD. No thyroid enlargement. No LNs CARDIOVASCULAR: S1, S2 muffled. No murmur RESPIRATION: Breath sounds diminished in the bases. No rhonchi or crackles. No bronchial breathing. ABDOMEN: Soft, nontender . No guarding. no masses palpable.Bowel sounds heard. LEGS: No edema. no swelling PSYCHIATRY: Alert and oriented -3, mood and affect normal. NERVOUS SYSTEM: Cranial N 2-12 grossly normal. Moves all 4 limbs. No focal deficits. No sensory deficit. Skin: no ulcer no rash Joints: No active swelling. No inflammation. Lymphatic system. No LN neck axilla or groin. - Labs CBC & Chem 7: 06/03/17 06:59 06/03/17 06:59 Labs: Abnormal Lab Results - Last 24 Hours (Table) 06/02/17 06/03/17 06/03/17 Range/Units 20:07 06:59 06:59 WBC 16.3 H (3.8-10.6) k/uL RBC 3.50 L (3.80-5.40) m/uL Hgb 10.2 L (11.4-16.0) gm/dL Hct 31.2 L (34.0-46.0) % Neutrophils # 11.4 H (1.3-7.7) k/uL Eosinophils # 1.0 H (0-0.7) k/uL Sodium 147 H (137-145) mmol/L Chloride 117 H (98-107) mmol/L Carbon Dioxide 20 L (22-30) mmol/L BUN 25 H (7-17) mg/dL Creatinine 2.06 H (0.52-1.04) mg/dL Glucose 73 L (74-99) mg/dL POC Glucose (mg/dL) 193 H (75-99) mg/dL 06/03/17 06/03/17 Range/Units 11:36 17:21 WBC (3.8-10.6) k/uL RBC (3.80-5.40) m/uL Hgb (11.4-16.0) gm/dL Hct (34.0-46.0) % Neutrophils # (1.3-7.7) k/uL Eosinophils # (0-0.7) k/uL Sodium (137-145) mmol/L Chloride (98-107) mmol/L Carbon Dioxide (22-30) mmol/L BUN (7-17) mg/dL Creatinine (0.52-1.04) mg/dL Glucose (74-99) mg/dL POC Glucose (mg/dL) 101 H 123 H (75-99) mg/dL Microbiology - Last 24 Hours (Table) 05/31/17 01:46 Blood Culture - Preliminary Blood No Growth after 72 hours Assessment and Plan Plan: 1. Acute left pyelonephritis with sepsis, present on admission 2. Acute renal failure possibly prerenal renal failure with acute tubular necrosis, present on admission 3. Leukocytosis 4. History of nephrolithiasis- bilateral 3. Diabetes mellitus type 2 Plan: Continue with current medication regime, monitoring, and symptomatic treatment. Maintain IV antibiotic therapy as per ID. Follow closely with nephrology. Discharge planning in progress for tomorrow. The impression and plan of care has been dictated as directed. : I performed a H&P examination of this patient and discussed the same with the dictator. I agree with the dictator's note. Any additional findings/opinions/ etc. will be noted.
--- NOTE | 2017-06-03 19:17 | PN ---
PROGRESS NOTE Patient is seen for followup for acute kidney injury and possible urinary tract infection. The patient has been maintained on antibiotics. Her renal function has improved with serum creatinine down to 2.0 from 3.0 mg/dL. Her UA was positive for significant pyuria but cultures did not grow anything and I believe patient has had antibiotics prior to her urine culture being sent out. She is possibly going home today. On examination, blood pressure was elevated 178/80, heart rate of 77 per minute. Patient is afebrile. Examination of the heart S1, S2. Examination lungs bilateral breath sounds are heard. Abdomen is soft, nontender. Examination lower extremities shows edema, trace edema mainly in the ankles. MAID SUPERVISOR exam is grossly intact. LABS SHOW: Serum creatinine 2.0 from today, sodium 147, potassium 4.6, hemoglobin 10.2 g/dL. ASSESSMENT: 1. Acute kidney injury associated with a urinary tract infection and some degree of prerenal acute kidney injury, now improved. I will Hep-Lock the IV fluids given the hypertension and ankle edema. The patient's lungs are clear. 2. Mild hypernatremia. Will discontinue the normal saline. 3. Urinary tract infection maintained on Rocephin. 4. Bilateral nonobstructive calculi noted on ultrasound. PLAN: Hep-Lock IV fluids. Continue Tenormin for hypertension. I will add low-dose Coreg and we can use diuretics as outpatient depending upon her volume status. The patient will need followup as outpatient. Plan to Hep-Lock IV fluids, add low dose Coreg and follow up as outpatient for acute kidney injury and hypertension. MMODL / IJN: [id number] /
[2017-06-03 20:00] LABS: Glucose,Whole Blood 195 mg/dL (75-99)
[2017-06-03] MEDS ORDERED: hydrALAZINE HCL 20 MG/ML 1 ML VIAL IVP PRN (21:07)
[2017-06-03] MEDS: amLODIPine 5 MG TAB PO SCH (22:08)
[2017-06-03] MEDS: metroNIDAZOLE 500 MG TAB PO SCH (23:08)
--- NOTE | 2017-06-03 23:41 | PN ---
PROGRESS NOTE DATE OF SERVICE: 06/03/2017 REASON FOR FOLLOWUP: Pyelonephritis. INTERVAL HISTORY: The patient is afebrile. She is breathing comfortably. Denies significant chest pain, shortness of breath or cough. No abdominal pain or any diarrhea. PHYSICAL EXAMINATION: Blood pressure is 177/80 with a pulse of 73, temperature 98.6. She is 98% on room air. General description is an elderly female up in the bed in no distress. RESPIRATORY SYSTEM: Unlabored breathing. Clear to auscultation anteriorly. HEART: S1, S2. Regular rate and rhythm. ABDOMEN: Soft. No tenderness. LABS: White count is still elevated at 16.3. DIAGNOSTIC IMPRESSION/PLAN: Patient admitted to hospital with abdominal pain in a patient who did have a positive UA with a with concern about pyelonephritis, though urine cultures remain negative. With the persistently elevated white count, Flagyl will be added and we will repeat CBC tomorrow. Continue supportive care. MMODL / IJN: [id number] /
[2017-06-04 07:12] LABS: Glucose,Whole Blood 102 mg/dL (75-99)
[2017-06-04 07:26] VITALS: RESP 14
[2017-06-04] MEDS: INSULIN LISPRO (humaLOG) 300 UNIT/3 ML VIAL SQ SCH ×2 (07:37→12:06)
[2017-06-04] MEDS: MAGNESIUM OXIDE 400 MG TAB PO SCH (07:38)
[2017-06-04] MEDS: amLODIPine 5 MG TAB PO SCH (07:38)
[2017-06-04] MEDS: PANTOPRAZOLE 40 MG TABLET PO SCH (07:38)
[2017-06-04] MEDS: LORATADINE 10 MG TAB PO SCH (07:38)
[2017-06-04] MEDS: metroNIDAZOLE 500 MG TAB PO SCH ×2 (07:38→14:58)
[2017-06-04] MEDS: ASPIRIN 81 MG CHEW PO SCH (07:38)
[2017-06-04] MEDS: ATENOLOL 50 MG TAB PO SCH (07:38)
[2017-06-04] MEDS: GABAPENTIN 100 MG CAP PO SCH (07:39)
[2017-06-04] MEDS: CHLORTHALIDONE 25 MG TAB PO SCH (07:39)
[2017-06-04] MEDS: ATORVASTATIN 10 MG TAB PO SCH (07:39)
[2017-06-04] MEDS: FERROUS SULFATE 325 MG TAB PO SCH (07:39)
[2017-06-04] MEDS: FENOFIBRATE 160 MG TAB PO SCH (07:39)
[2017-06-04] MEDS: HEPARIN SODIUM,PORCINE 5,000 UNIT/ML 1 ML VIAL SQ SCH (07:40)
[2017-06-04] MEDS: MULTIVITAMINS, THERA 1 EACH TAB PO SCH (07:40)
[2017-06-04] MEDS: MONTELUKAST 10 MG TAB PO SCH (07:40)
[2017-06-04] MEDS: INSULIN NPL/INSULIN LISPRO 100 UNIT/ML 10 ML VIAL (Humalog 75/25) SQ SCH (07:45)
[2017-06-04] MEDS: cefTRIAXone 2,000 MG in SODIUM CHLORIDE 0.9% 100 ML IVPB SCH (07:45)
[2017-06-04 08:06] LABS: Basophils # (A) 0.1 k/uL (0-0.2); Basophils % (A) 1 %; CH 29.8; CHCM 33.8; Eosinophils # (A) 0.9 k/uL (0-0.7); Eosinophils % (A) 7 %; HCT 31.7 % (34.0-46.0); HDW 2.99; HGB 10.8 gm/dL (11.4-16.0); Luc # (Auto) 0.27; Luc % (Auto) 2; Lymphocytes # (A) 2.5 k/uL (1.0-4.8); Lymphocytes % (A) 18 %; MCH 30.4 pg (25.0-35.0); MCHC 34.2 g/dL (31.0-37.0); MCV 88.7 fL (80.0-100.0); Mean Platelet Volume 7.6; Monocytes # (A) 0.6 k/uL (0-1.0); Monocytes % (A) 5 %; Neutrophils # (A) 9.5 k/uL (1.3-7.7); Neutrophils % (A) 68 %; RBC 3.57 m/uL (3.80-5.40); RDW 14.7 % (11.5-15.5); WBC 13.9 k/uL (3.8-10.6); WBC (Perox) 14.45
[2017-06-04 08:33] LABS: Calcium 8.9 mg/dL (8.4-10.2); Potassium 4.7 mmol/L (3.5-5.1)
[2017-06-04] MEDS ORDERED: HYDROCHLOROTHIAZIDE 25 MG TAB PO SCH (09:00)
[2017-06-04 10:29] VITALS: PULSE 74; TEMP 98.7
[2017-06-04] MEDS ORDERED: ATENOLOL 50 MG TAB PO STA (14:10)
[2017-06-04] MEDS ORDERED: FUROSEMIDE 10 MG/ML 4 ML VIAL IV STA (14:10)
[2017-06-04 15:02] VITALS: BP 158/66
[2017-06-04 15:54] LABS: Glucose,Whole Blood 106 mg/dL (75-99)
--- NOTE | 2017-06-04 22:50 | PN ---
PROGRESS NOTE DATE OF SERVICE: 06/04/2017 REASON FOR FOLLOWUP: Possible urinary tract infection and pyelonephritis. INTERVAL HISTORY: The patient is afebrile. She is breathing comfortably. The patient denies chest pain, shortness of breath or cough. No abdominal pain or any diarrhea. PHYSICAL EXAMINATION: Blood pressure 158/66 with pulse of 74, temperature 98.7. General description is an elderly female up in the bed in no distress. RESPIRATORY SYSTEM: Unlabored breathing. Clear to auscultation anteriorly. HEART: S1, S2. Regular rate and rhythm. ABDOMEN: Soft. No tenderness. LABS: Hemoglobin 10.8, white count 13.9 with a BUN of 26, creatinine 2.09. Cultures remain negative. DIAGNOSTIC IMPRESSION/PLAN: Patient admitted to hospital with abdominal pain with a question of possible pyelonephritis. The patient has been on Rocephin; however, the white count is still elevated. It did improve with addition of the Flagyl. She will be able to finish therapy with p.o. Ceftin and Flagyl for about 10 days with outpatient followup. MMODL / IJN: [id number] /
--- NOTE | 2017-06-05 08:16 | PN ---
PROGRESS NOTE Patient is seen for followup for acute kidney injury. She was admitted to the hospital with urinary tract infection. Her renal function has been slowly improving. Serum creatinine has been staying at about 2.0 for the last couple of days. Serum creatinine was at 3.0 on initial admission. Patient is maintained on IV antibiotics. Her blood pressure has been running high. She denies any shortness of breath. IV fluids were discontinued 2 days ago. PHYSICAL EXAMINATION: On examination, blood pressure was 200/85 earlier. Heart rate 74 per minute. She is afebrile. EXAMINATION OF THE HEART: S1, S2. EXAMINATION OF THE LUNGS: Bilateral breath sounds are heard. Abdomen is soft, nontender. Examination of the lower extremities shows edema 1+ bilaterally mainly in the ankles. LABS: Labs show sodium 146, potassium 4.7, serum creatinine 2.0. Hemoglobin 10.8 g/dL. ASSESSMENT: 1. Acute kidney injury, most likely secondary to underlying urinary tract infection as well as a prerenal component on initial admission. The patient had been on Motrin as well. This was discontinued. Her previous creatinine was at 1.4 mg/dL in 2014. 2. Urinary tract infection with urine culture which showed no growth as patient had already been on antibiotics. 3. Bilateral nonobstructive nephrolithiasis. 4. Type 2 diabetes. 5. Hypertension currently uncontrolled. I will increase the Tenormin and if the blood pressure is not better, we can add hydralazine. The patient is maintained on hydrochlorothiazide. We can likely resume the chlorthalidone as an outpatient. I will also give her 1 dose of Lasix now. PLAN: Increase to Tenormin, Lasix x1, maintain hydrochlorothiazide which we can switch back to chlorthalidone as outpatient depending on her blood pressure and volume status. The patient will need follow up as outpatient in about one week's time. She is advised to continue to avoid the use of NSAIDs. MMODL / IJN: [id number] /
== END 2017-06-04 17:24 | disposition home or self-care (01) | DRG 871 ==
LOC: EC 17:32 → 5MS5E 19:03
PROVIDERS: ADMIT Internal Medicine; ATTEND Internal Medicine
DX: A41.9 Sepsis, unspecified organism (principal); N17.0 Acute kidney failure with tubular necrosis; E87.0 Hyperosmolality and hypernatremia; E87.2 Acidosis; N10 Acute pyelonephritis; E11.9 Type 2 diabetes mellitus without complications; T39.395A Adverse effect of other nonsteroidal anti-inflammatory drugs [NSAID], initial encounter; E78.5 Hyperlipidemia, unspecified; N20.0 Calculus of kidney; R53.1 Weakness; R42 Dizziness and giddiness; R60.0 Localized edema; I10 Essential (primary) hypertension; K21.9 Gastro-esophageal reflux disease without esophagitis; M19.90 Unspecified osteoarthritis, unspecified site; Z79.82 Long term (current) use of aspirin; Z79.899 Other long term (current) drug therapy; Z79.4 Long term (current) use of insulin; Z79.1 Long term (current) use of non-steroidal anti-inflammatories (NSAID); Z88.0 Allergy status to penicillin; Z71.3 Dietary counseling and surveillance; Z78.0 Asymptomatic menopausal state; Z98.49 Cataract extraction status, unspecified eye; Z90.49 Acquired absence of other specified parts of digestive tract; Z87.2 Personal history of diseases of the skin and subcutaneous tissue; Z86.69 Personal history of other diseases of the nervous system and sense organs
CPT/HCPCS: 36415; 74176; 80048; 80053; 81001; 83036; 83605; 85025; 87040; 87086; 96365; 99285

== ENCOUNTER → 2017-09-30 | Outpatient (CLI) | payer MEDICARE ==
--- NOTE | 2017-09-30 14:25 | XR ---
EXAMINATION TYPE: XR chest 2V DATE OF EXAM: 09/30/2017 COMPARISON: Chest x-ray from outside institution 05/30/2017 HISTORY: Left Rib pain, R 52 TECHNIQUE: Frontal and lateral views of the chest are obtained. FINDINGS: There is no focal air space opacity, pleural effusion, or pneumothorax seen. The cardiac silhouette size is within normal limits. Multilevel spondylosis in the thoracic spine, anterior flowi ng osteophytes may be indicative of diffuse idiopathic skeletal hyperostosis. There is eventration of the right hemidiaphragm. Patient is rotated. Prominent lung volumes may be indicative of underlying COPD. The osseous structures are intact. IMPRESSION: No acute cardiopulmonary process.
== END | disposition home or self-care (01) ==
LOC: RADXRMAIN 13:16
PROVIDERS: ATTEND Surgery
DX: R07.81 Pleurodynia (principal)
CPT/HCPCS: 71046

== ENCOUNTER 2017-10-22 08:22 | Day surgery (SDC) | payer MEDICARE ==
[2017-10-16 16:36] VITALS: BMI 33.8
[~2017-10-22 08:22] MED LIST: DEXAMETHASONE SOD PHOSPHATE 10 MG/ML 1 ML VIAL IV ONE; HEPARIN SODIUM,PORCINE 5,000 UNIT/ML 1 ML VIAL SQ ONE; LACTATED RINGERS 1,000 ML IV SCH; MIDAZOLAM 2 MG/2 ML VIAL IV PRN; MORPHINE SULFATE 4 MG/ML SYRINGE IV PRN; ONDANSETRON 4 MG/2 ML VIAL IVP ONE; Pre Op ABX Message 1 EACH MISC MISCELLANE ONE
[2017-10-22] MEDS ORDERED: ALPRAZolam 0.25 MG TAB PO STA (09:06)
[2017-10-22] MEDS ORDERED: LIDOCAINE 1% 20 ML VIAL (10MG/ML) FOR IV START INTRADERMA ONE (09:18)
[2017-10-22 09:30] LABS: Glucose,Whole Blood 137 mg/dL (75-99)
[2017-10-22] MEDS ORDERED: LIDOCAINE 1% INJ 10MG/ML (20 ML MDV) SQ ONE (10:13)
[2017-10-22] MEDS ORDERED: SODIUM BICARB 4% 5 ML VIAL (0.48 MEQ/ML) MISCELLANE ONE (10:13)
--- NOTE | 2017-10-22 11:31 | NM ---
EXAMINATION TYPE: NM sentinel node injection DATE OF EXAM: 10/22/2017 COMPARISON: NONE HISTORY: Newly diagnosed left-sided breast cancer TECHNIQUE AND FINDINGS: The procedure of sentinel lymph node injection was explained to the patient. The benefits, alternatives, and risks were discussed. An informed consent was then obtained. Overlying skin is cleaned with sterile alcohol. Lidocaine buffered with bicarbonate was used as anes thetic into the skin and subcutaneous tissue surrounding the nipple. Following this, 524 uCi Tc 99m Filtered Sulfur Colloid was injected into 4 equivalent doses at 12, 3, 6, and 9:00 position surroundi ng the left nipple intradermally. The injection sites were massaged by photo technologist for 10 minutes after injection. T he patient tolerated the procedure well without any immediate complication. The patient was kept in the radiology department for short stay after the procedure and then taken to surgery for surgical pr ocedure what is presumed intraoperative gamma probe will be used for sentinel lymph node detection. IMPRESSION: Left breast radiotracer injection for sentinel node localization as above.
[2017-10-22] MEDS ORDERED: HEPARIN SODIUM,PORCINE 5,000 UNIT/ML 1 ML VIAL SQ ONE (12:48)
[2017-10-22] MEDS ORDERED: CLINDAMYCIN 600 MG in DEXTROSE 5% IN WATER 50 ML IVPB STA ×2 (13:01)
[2017-10-22] MEDS ORDERED: HYDROmorphone (PF) 1 MG/ML ONE (13:15)
[2017-10-22] MEDS ORDERED: MIDAZOLAM 2 MG/2 ML VIAL ONE (13:15)
[2017-10-22] MEDS ORDERED: PHENYLEPHRINE-0.9% NACL SYG 1 MG/10 ML SYRINGE ONE (13:15)
[2017-10-22] MEDS ORDERED: CLINDAMYCIN 150 MG/ML 4 ML VIAL ONE (13:15)
[2017-10-22] MEDS ORDERED: fentaNYL (PF) 50 MCG/ML 2 ML AMP ONE (13:15)
[2017-10-22] MEDS ORDERED: SUCCINYLCHOLINE CHLORIDE 100 MG/5 ML SYR IV ONE (13:15)
[2017-10-22] MEDS ORDERED: LIDOCAINE 1% INJ 10MG/ML (20 ML MDV) ONE (13:15)
[2017-10-22] MEDS ORDERED: PROPOFOL 10 MG/ML 20 ML VIAL IV ONE (13:15)
[2017-10-22] MEDS ORDERED: ePHEDrine SULFATE/0.9% NACL/PF 50 MG/5 ML SYRINGE IV ONE (13:15)
[2017-10-22] MEDS ORDERED: SODIUM CHLORIDE 0.9% 50 ML with CLINDAMYCIN 600 MG IV ONE ×2 (13:30)
[2017-10-22] MEDS ORDERED: METHYLENE BLUE 10 MG/ML (10 ML VIAL) INJ ONE (13:30)
[2017-10-22] MEDS ORDERED: LACTATED RINGERS 1,000 ML IV ONE (15:12)
--- NOTE | 2017-10-22 15:24 | P.OP ---
Date of Procedure: 10/22/17 Preoperative Diagnosis: Left breast cancer Postoperative Diagnosis: Same Procedure(s) Performed: Lymphatic mapping left side, left sentinel node biopsy, left breast lumpectomy with tissue rearrangement and BioSorb placement, left breast tissue painted for orientation Implants: biozorb Anesthesia: GETA Estimated Blood Loss (ml): 20 IV fluids (ml): 415 Pathology: other (Left breast tissue, left axillary sentinel node biopsy) Condition: stable Disposition: PACU Indications for Procedure: Left breast cancer Operative Findings: Left breast cancer, sentinel node negative for cancer on frozen section Description of Procedure: The patient was taken to the operating room and following induction of general anesthesia the left breast and axilla were prepped and draped in a sterile fashion. Prior to this approximately 3 mL of half percent methylene blue were injected in the periareolar area afternoon prepped with alcohol. The breast was then massaged. The axilla was approached initially. The neoprobe was utilized to identify the area of increased radioactivity in the axilla and an incision was made. Dissection was carried down into the axillary tissue and draped in the axilla. Blue radioactive lymph node was identified. This was not blue. The lymph node was removed and the 10 second count was 2255, the 10 second background count was 12. No other lymph nodes of concern were identified. The lymph node was sent for frozen/fashion. This was negative for cancer on frozen section. The deep tissues were closed using 3-0 Vicryl suture. The skin was closed using 4-0 Monocryl. No drain was left as the area of the axilla was very dry. The breast was approached. Wide excision of the localization was performed. Radiograph of the specimen revealed that both wires were present as well as the clip and the area of concern. After assured that hemostasis was attained the cavity was measured and was approximately 10 x 6 cm. The breast tissues were mobilized using a plastic technique from the pectoralis major muscle as well as in the undersurface of the skin at several locations. In so doing we were able to reduce the size of the cavity defect. A BioSorb sizer was utilized and a 4 x 3 by was robust chosen for replacement. This was placed in mobilized tissues were able to be easily approximated over the BioSorb. Following this the skin was reapproximated using a deep 30 please correct for Vicryl suture and 4-0 Monocryl subcuticular suture. Patient tolerated the procedure in stable condition. The specimen had been painted prior to being sent to x-ray for orientation. All instrument and sponge counts were correct at the end of the case.
--- NOTE | 2017-10-22 15:25 | P.DS ---
Providers Attending physician: Funmilayo Quinteros Primary care physician: Stated None Plan - Discharge Summary New Discharge Prescriptions: No Action Montelukast [Singulair] 10 mg PO HS Fenofibrate [Lofibra] 160 mg PO DAILY Aspirin 81 mg PO DAILY Pantoprazole Sodium [Protonix] 40 mg PO DAILY Multivitamins, Thera [Multivitamin (formulary)] 1 tab PO DAILY Ferrous Sulfate [Iron (65 MG Elemental)] 650 mg PO DAILY Insulin Lispro Protamin/Lispro [humaLOG Mix 75-25 Kwikpen] 38 unit SQ HS Insulin Lispro Protamin/Lispro [humaLOG Mix 75-25 Kwikpen] 65 unit SQ QAM Acetaminophen Tab [Tylenol] 650 mg PO Q6HR PRN tab PRN Reason: Mild Pain Or Fever > 100.5 Atorvastatin [Lipitor] 20 mg PO HS Atenolol/Chlorthalidone [Tenoretic 50 Tablet] 1 each PO QAM Doxycycline Hyclate [Vibramycin] 100 mg PO BID Ergocalciferol [Vitamin D2 (DRISDOL)] 50,000 unit PO Q30D Calcitriol [Rocaltrol] 0.25 mcg PO FR Discharge Medication List Aspirin 81 mg PO DAILY 02/05/14 [History] Fenofibrate [Lofibra] 160 mg PO DAILY 02/05/14 [History] Montelukast [Singulair] 10 mg PO HS 02/05/14 [History] Pantoprazole Sodium [Protonix] 40 mg PO DAILY 02/05/14 [History] Ferrous Sulfate [Iron (65 MG Elemental)] 650 mg PO DAILY 05/30/17 [History] Insulin Lispro Protamin/Lispro [humaLOG Mix 75-25 Kwikpen] 38 unit SQ HS [History] Insulin Lispro Protamin/Lispro [humaLOG Mix 75-25 Kwikpen] 65 unit SQ QAM [History] Multivitamins, Thera [Multivitamin (formulary)] 1 tab PO DAILY 05/30/17 [History ] Acetaminophen Tab [Tylenol] 650 mg PO Q6HR PRN tab 06/03/17 [Rx] Atenolol/Chlorthalidone [Tenoretic 50 Tablet] 1 each PO QAM 10/16/17 [History] Atorvastatin [Lipitor] 20 mg PO HS 10/16/17 [History] Calcitriol [Rocaltrol] 0.25 mcg PO FR 10/16/17 [History] Doxycycline Hyclate [Vibramycin] 100 mg PO BID 10/16/17 [History] Ergocalciferol [Vitamin D2 (DRISDOL)] 50,000 unit PO Q30D 10/16/17 [History] Follow up Appointment(s)/Referral(s): Funmilayo Quinteros MD [STAFF PHYSICIAN] - 1 Week Activity/Diet/Wound Care/Special Instructions: Bra at all times Do not drive until seen by Dr. Berry Discharge Disposition: HOME SELF-CARE
[2017-10-22 15:37] VITALS: TEMP 97
[2017-10-22 15:58] LABS: Glucose,Whole Blood 135 mg/dL (75-99)
[2017-10-22 16:25] VITALS: RESP 18
[2017-10-22 16:44] VITALS: BP 155/73; PULSE 83
--- NOTE | 2017-10-23 07:54 | USB ---
EXAM: Needle localization with wire placement. CLINICAL HISTORY: Newly diagnosed carcinoma left breast on biopsy August 29, 2017. History of recent abnormal mammogram and ultrasound TECHNIQUE: Needle localization with wire placement 2 sites and subsequent surgical excision of to areas of concern in the left breast. COMPARISON: Outside left breast mammogram and ultrasound August 29, 2017 and older outside studies. FINDINGS: The procedure of needle localization with wire placement and than surgical excision was explained to the patient. Benefits, alternatives, and risks were discussed. An informed consent was then obtained. Ultrasound guidance is chosen. Case discussed with surgeon requests both biopsy- proven lesion 12:00 position to have needle localization and 1:00 ultrasound abnormal lesion is not biopsied to have needle localization. Preprocedure scanning shows heterogeneous hypoechoic mass 12:00 position with clip corresponding to biopsy-proven carcinoma and smaller vague hypoechoic area 1:00 position corresponding to prior ultrasound abnormality. The overlying skin was prepped and draped in usual sterile fashion. Lidocaine buffered with bicarbonate was used as anesthetic into the skin and subcutaneous tissue up to the level of area of concern. A 5 cm needle was used at both sites. At this point, wire was placed and the needle was withdrawn. The wire was fixed to patient's skin. Ordering surgeon requests postprocedure mammogram. This confirms satisfactory positioning of first wire relative to clip and confirms intraparenchymal breast positioning of second wire. The patient tolerated the procedure well without any immediate complication. The patient was kept in the radiology department for short stay after the procedure and then taken to surgery for surgical excision. Targeted clip and 2 wires are identified in specimen mammogram. The patient was kept in hospital for short stay after the procedure and then discharged home in stable condition. IMPRESSION: Successful, uncomplicated needle localization with wire placement and surgical excision of targeted biopsy clip and second nearby nonspecific ultrasound lesion in the left breast, full pathology results to follow. Pathology Results: Malignant A. SENTINEL LYMPH NODE, BIOPSY: LYMPH NODE WITH PARTIAL FAT REPLACEMENT, NEGATIVE FOR METASTASIS. CK7 AND DRE IMMUNOPEROXIDASE STAINS ARE CONFIRMATORY ( CONTROLS APPROPRIATE). B. LEFT BREAST, LUMPECTOMY: PENDING FIXATION, SEE ADDENDUM/FINAL DIAGNOSIS. C. AXILLARY CONTENTS: PENDING FIXATION, SEE ADDENDUM/FINAL DIAGNOSIS. ADDENDUM REPORT B. 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 LOBULAR NEOPLASIA ( ATYPICAL LOBULAR HYPERPLASIA/LOBULAR CARCINOMA IN SITU). INTRADUCTAL PAPILLOMA FORMATION FOCALLY INVOLVED BY DUCT CARCINOMA IN SITU AND ATYPICAL DUCTAL HYPERPLASIA. FIBROCYSTIC CHANGE (STROMAL FIBROSIS, CYST FORMATION, APOCRINE METAPLASIA, ADENOSIS, COLUMNAR CELL CHANGE, AND DUCT HYPERPLASIA FOCALLY WITH ATYPIA). FOCAL FOREIGN BODY REACTION WITH CALCIFICATIONS SUGGESTIVE OF DUCT RUPTURE. BIOPSY SITE CHANGE AND SCAR. C. LYMPH NODES, LEFT AXILLARY, RESECTION: TWO LYMPH NODES NEGATIVE FOR METASTASIS. Recommendation Surgical consult of the left breast. KENNEDYD
--- NOTE | 2017-10-23 08:26 | MM ---
Reason for exam: additional evaluation requested from abnormal screening. Last mammogram was performed 2 years and 4 months ago. History: Patient is postmenopausal. Family history of breast cancer in aunt at age 55. Took estrogen for 6 years 6 months beginning at age 55. [facility] Diagnostic Mammo LT Wo CAD CC and ML view(s) were taken of the left breast. Prior study comparison: June 09, 2015, bilateral MG screening mammo w CAD. May 13, 2014, bilateral MG screening mammo w CAD. ASSESSMENT: Post procedure mammogram for marker placement RECOMMENDATION: Ultrasound of the left breast in 6 months. PENDING PATHOLOGY RESULTS.
== END 2017-10-22 17:10 | disposition home or self-care (01) ==
LOC: OR 08:22
PROVIDERS: ATTEND Surgery
DX: D05.12 Intraductal carcinoma in situ of left breast (principal); D05.82 Other specified type of carcinoma in situ of left breast; D24.2 Benign neoplasm of left breast; N60.92 Unspecified benign mammary dysplasia of left breast; N60.32 Fibrosclerosis of left breast; N60.02 Solitary cyst of left breast; N60.82 Other benign mammary dysplasias of left breast; N60.22 Fibroadenosis of left breast; R92.1 Mammographic calcification found on diagnostic imaging of breast; Z80.3 Family history of malignant neoplasm of breast; E78.5 Hyperlipidemia, unspecified; I10 Essential (primary) hypertension; E83.42 Hypomagnesemia; E11.42 Type 2 diabetes mellitus with diabetic polyneuropathy; E11.319 Type 2 diabetes mellitus with unspecified diabetic retinopathy without macular edema; E11.21 Type 2 diabetes mellitus with diabetic nephropathy; Z79.4 Long term (current) use of insulin; F17.200 Nicotine dependence, unspecified, uncomplicated; K21.9 Gastro-esophageal reflux disease without esophagitis; Z79.2 Long term (current) use of antibiotics; Z79.82 Long term (current) use of aspirin; Z79.899 Other long term (current) drug therapy; M19.90 Unspecified osteoarthritis, unspecified site; Z88.0 Allergy status to penicillin
CPT/HCPCS: 19301; 38525; 88342; 88331; 88307; 88341; 77065; 76098; 19285; 19286; 38792; A4648; A9541; J2250; J1644; J1100; J2405; J2001; Q9968; J3010; J1170; J2370; J0330; J2704

== ENCOUNTER → 2018-05-29 | Outpatient (CLI) | payer MEDICARE ==
--- NOTE | 2018-05-30 08:59 | MM ---
Reason for exam: clinical finding. Last mammogram was performed 7 months ago. History: Patient is postmenopausal and has history of breast cancer at age 72. Family history of breast cancer in paternal aunt at age 55. Malignant US breast local each add LT of the left breast, October 22, 2017. Malignant US breast localization LT, October 22, 2017. Lumpectomy of the left breast, October 22, 2017. Took estrogen for 6 years 6 months beginning at age 55. Taking antineoplastic for 6 months. Indicated problem(s): pain in the left breast. Physical Findings: Nurse Summary: 3cm nodule in the left breast at 2 o'clock (nurse cw). MG 3D Diag Mammo W/Cad GERSON Bilateral CC and MLO view(s) were taken. Prior study comparison: October 22, 2017, left breast MG diagnostic mammo LT wo CAD. August 29, 2017, mammogram, performed at [facility]. The breast tissue is heterogeneously dense. This may lower the sensitivity of mammography. Finding: There is a 30 mm equal density (isodense), circumscribed round mass in the upper outer quadrant, posterior position of the left breast consistent with biopsy site with clips. These results were verbally communicated with the patient and result sheet given to the patient on 05/29/18. ASSESSMENT: Probably benign, BI-RAD 3 RECOMMENDATION: Follow-up diagnostic mammogram of the left breast in 3 months. Manage patient on a clinical basis.
== END | disposition home or self-care (01) ==
LOC: RADMAMWWP 14:40
PROVIDERS: ATTEND Internal Medicine Hematology & Oncology
DX: R92.8 Other abnormal and inconclusive findings on diagnostic imaging of breast (principal); Z85.3 Personal history of malignant neoplasm of breast
CPT/HCPCS: 77066; G0279; 77062

== ENCOUNTER 2018-09-24 03:25 | Inpatient (IN) | payer MEDICARE ==
--- NOTE | 2018-09-24 03:40 | ED ---
Lower Extremity Injury HPI - General Chief Complaint: Extremity Injury, Lower Stated Complaint: Femur Fracture Time Seen by Provider: 09/24/18 03:30 Source: EMS Mode of arrival: EMS Limitations: no limitations - History of Present Illness Initial Comments: 's patient is 72-year-old woman who presents as a transfer from outside hospital after having had a femur fracture. Patient states she had gotten up to use the bathroom then she believes she tripped and fell resulting in a right femur fracture. Patient did have workup at the other hospital he was transferred here to have orthopedic consultation. MD Complaint: hip injury -: hour(s) Injury: Hip: Right Type of Injury: blunt Place: home Severity: mild Improves With: nothing Worsens With: weight bearing, movement Context: fall Associated Symptoms: unable to bear weight - Related Data Home Medications Medication Instructions Recorded Confirmed Fenofibrate [Lofibra] 160 mg PO DAILY 02/05/14 09/24/18 Pantoprazole Sodium [Protonix] 40 mg PO DAILY 02/05/14 09/24/18 Calcitriol [Rocaltrol] 0.25 mcg PO TH 10/16/17 09/24/18 Aspirin 81 mg PO DAILY 07/31/18 09/24/18 Letrozole [Femara] 2.5 mg PO DAILY 07/31/18 09/24/18 Acetaminophen Tab [Tylenol] 325 mg PO HS 08/13/18 09/24/18 Cholecalciferol (Vitamin D3) 2,000 unit PO DAILY 08/13/18 09/24/18 [Vitamin D3] Ferrous Sulfate [Iron (65 MG 325 mg PO DAILY 08/13/18 09/24/18 Elemental)] Multivit-Min/FA/Lycopen/Lutein 1 tab PO DAILY 08/13/18 09/24/18 [Centrum Silver Tablet] Ondansetron HCl [Zofran] 8 mg PO DAILY 08/13/18 09/24/18 Atenolol [Tenormin] 50 mg PO DAILY 09/24/18 09/24/18 Atorvastatin [Lipitor] 10 mg PO HS 09/24/18 09/24/18 Furosemide [Lasix] 80 mg PO BID 09/24/18 09/24/18 Insuln Asp Prt/Insulin Aspart See Protocol SQ AC-BID 09/24/18 09/24/18 [NovoLOG MIX 70-30 VIAL] Previous Rx's Medication Instructions Recorded Sodium Bicarbonate Tab 1,300 mg PO BID #120 tab 08/04/18 amLODIPine [Norvasc] 10 mg PO DAILY #30 tab 08/04/18 cloNIDine HCL [Catapres] 0.1 mg PO BID #60 tab 08/04/18 Montelukast [Singulair] 10 mg PO HS tab 08/20/18 Allergies Allergy/AdvReac Type Severity Reaction Status Date / Time Penicillins Allergy Rash/Hives Verified 09/24/18 07:45 Review of Systems ROS Statement: Those systems with pertinent positive or pertinent negative responses have been documented in the HPI. ROS Other: All systems not noted in ROS Statement are negative. Constitutional: Denies: fever, chills, weakness Eyes: Denies: vision change Respiratory: Denies: cough, dyspnea Cardiovascular: Denies: chest pain, edema, syncope Gastrointestinal: Denies: abdominal pain, vomiting, diarrhea Genitourinary: Denies: dysuria, hematuria Musculoskeletal: Reports: as per HPI, arthralgia (Right hip) Skin: Denies: rash Neurological: Denies: headache, weakness, numbness Hematological/Lymphatic: Denies: easy bleeding Past Medical History Past Medical History: Cancer, Diabetes Mellitus, Eye Disorder, GERD/Reflux, Hyperlipidemia, Hypertension, Osteoarthritis (OA), Renal Disease Additional Past Medical History / Comment(s): LEFT BREAST, STATES CURRENT BLADDER INFECTION, NEUROPATHY FEET, HANDS, RT EYE DIABETIC RETINOPATHY, STATES LITTLE VISION History of Any Multi-Drug Resistant Organisms: None Reported Past Surgical History: Section, Cholecystectomy, Tonsillectomy, Tubal Ligation Additional Past Surgical History / Comment(s): LEFT BREAST LUMPECTOMY, D&C, GERSON CATARACT SX Past Anesthesia/Blood Transfusion Reactions: Previous Problems w/ Anesthesia Additional Past Anesthesia/Blood Transfusion Reaction / Comment(s): STATED " TOOK A LONG TIME WAKING UP FROM ANESTHESIA" Past Psychological History: No Psychological Hx Reported Smoking Status: Never smoker Past Alcohol Use History: None Reported Past Drug Use History: None Reported - Past Family History Mother Family Medical History: No Reported History Brother(s) Family Medical History: Diabetes Mellitus General Exam Limitations: no limitations General appearance: alert, in no apparent distress Head exam: Present: atraumatic, normocephalic Eye exam: Present: normal appearance. Absent: scleral icterus, conjunctival injection ENT exam: Present: normal oropharynx Neck exam: Present: normal inspection, full ROM. Absent: tenderness Respiratory exam: Present: normal lung sounds bilaterally. Absent: respiratory distress, wheezes, rales, rhonchi, stridor, chest wall tenderness Cardiovascular Exam: Present: regular rate, irregular rhythm, normal heart sounds. Absent: systolic murmur, diastolic murmur, rubs, gallop GI/Abdominal exam: Present: soft. Absent: distended, tenderness, guarding, rebound, rigid, mass Extremities exam: Present: normal inspection, tenderness, normal capillary refill. Absent: full ROM, pedal edema, calf tenderness Back exam: Present: normal inspection. Absent: CVA tenderness (R), CVA tenderness (L) Neurological exam: Present: alert, oriented X3 Skin exam: Present: warm, dry, intact, normal color. Absent: rash Course Vital Signs 09/24/18 09/24/18 09/24/18 03:26 04:32 05:34 Temperature 98.5 F 98.1 F Pulse Rate 66 69 60 Pulse Rate [ Dorsalis Pedis] Respiratory 18 20 18 Rate Blood Pressure 139/77 137/79 137/61 Blood Pressure [Left Arm] O2 Sat by Pulse 97 98 97 Oximetry 09/24/18 09/24/18 07:00 08:00 Temperature 97.5 F L 97.7 F Pulse Rate 58 L Pulse Rate [ 80 Dorsalis Pedis] Respiratory 20 16 Rate Blood Pressure 124/57 Blood Pressure 124/57 [Left Arm] O2 Sat by Pulse 97 95 Oximetry Medical Decision Making - Medical Decision Making Patient is 72-year-old woman transferred here from outside hospital for right femoral neck fracture. Case discussed with Dr. Sumner, who will admit and there are consults for presurgical clearance. - Lab Data Result diagrams: 09/24/18 03:41 09/24/18 03:41 Lab Results 09/24/18 09/24/18 09/24/18 Range/Units 03:41 03:41 03:41 WBC 17.6 H (3.8-10.6) k/uL RBC 3.75 L (3.80-5.40) m/uL Hgb 11.2 L (11.4-16.0) gm/dL Hct 33.7 L (34.0-46.0) % MCV 89.8 (80.0-100.0) fL MCH 29.9 (25.0-35.0) pg MCHC 33.3 (31.0-37.0) g/dL RDW 13.9 (11.5-15.5) % Plt Count 246 (150-450) k/uL Neutrophils % 78 % Lymphocytes % 14 % Monocytes % 4 % Eosinophils % 3 % Basophils % 0 % Neutrophils # 13.8 H (1.3-7.7) k/uL Lymphocytes # 2.4 (1.0-4.8) k/uL Monocytes # 0.7 (0-1.0) k/uL Eosinophils # 0.5 (0-0.7) k/uL Basophils # 0.1 (0-0.2) k/uL PT 10.4 (9.0-12.0) sec INR 1.0 (<1.2) APTT 23.9 (22.0-30.0) sec Sodium 139 (137-145) mmol/L Potassium 3.6 (3.5-5.1) mmol/L Chloride 95 L (98-107) mmol/L Carbon Dioxide 32 H (22-30) mmol/L Anion Gap 12 mmol/L BUN 45 H (7-17) mg/dL Creatinine 4.21 H (0.52-1.04) mg/dL Est GFR (CKD-EPI)AfAm 11 (>60 ml/min/1.73 sqM) Est GFR (CKD-EPI)NonAf 10 (>60 ml/min/1.73 sqM) Glucose 168 H (74-99) mg/dL Calcium 9.1 (8.4-10.2) mg/dL - EKG Data -: EKG Interpreted by Oh EKG shows normal: axis (Normal), intervals (Normal), QRS complexes (Normal), ST- T waves (Normal) Rate: normal (Rate 89 bpm) Interpretation: normal EKG Disposition Clinical Impression: Fracture of femur Disposition: ADMITTED IP TO THIS HOSP Condition: Poor
[2018-09-24] MEDS ORDERED: NALOXONE 0.4 MG/ML 1 ML VIAL IV PRN (03:44)
[2018-09-24] MEDS ORDERED: LOPERAMIDE 2 MG CAP PO PRN (03:47)
[2018-09-24] MEDS ORDERED: IPRATROPIUM-ALBUTEROL 3 ML NEB INHALATION PRN (03:47)
[2018-09-24 03:58] LABS: Basophils # (A) 0.1 k/uL (0-0.2); Basophils % (A) 0 %; Eosinophils # (A) 0.5 k/uL (0-0.7); Eosinophils % (A) 3 %; HCT 33.7 % (34.0-46.0); HGB 11.2 gm/dL (11.4-16.0); Lymphocytes # (A) 2.4 k/uL (1.0-4.8); Lymphocytes % (A) 14 %; MCH 29.9 pg (25.0-35.0); MCHC 33.3 g/dL (31.0-37.0); MCV 89.8 fL (80.0-100.0); Mean Platelet Volume 7.9; Monocytes # (A) 0.7 k/uL (0-1.0); Monocytes % (A) 4 %; Neutrophils # (A) 13.8 k/uL (1.3-7.7); Neutrophils % (A) 78 %; Platelet Count 246 k/uL (150-450); RBC 3.75 m/uL (3.80-5.40); RDW 13.9 % (11.5-15.5); WBC 17.6 k/uL (3.8-10.6)
[2018-09-24] MEDS: SODIUM CHLORIDE 0.9% 1,000 ML IV SCH (04:01)
[2018-09-24 04:06] LABS: Calcium 9.1 mg/dL (8.4-10.2); Potassium 3.6 mmol/L (3.5-5.1)
--- NOTE | 2018-09-24 04:06 | XR ---
EXAMINATION TYPE: XR chest 1V portable DATE OF EXAM: 09/24/2018 COMPARISON: 08/22/2018 HISTORY: Preop TECHNIQUE: Single frontal view of the chest is obtained. FINDINGS: There is no heart failure nor confluent pneumonic infiltrate. There is dual lumen right ce ntral venous catheter with tip in the superior vena cava. There are chest leads. IMPRESSION: No active cardiopulmonary disease. There is clearing of some minimal pleural fluid fernando red to old exam.
[2018-09-24 04:08] LABS: Partial Thromboplastin Time 23.9 sec (22.0-30.0); Prothrombin Time 10.4 sec (9.0-12.0)
[2018-09-24] MEDS: MORPHINE SULFATE 4 MG/ML SYRINGE IV PRN ×6 (05:32→22:50)
[2018-09-24] MEDS: IPRATROPIUM-ALBUTEROL 3 ML NEB INHALATION SCH ×4 (07:23→21:15)
[2018-09-24] MEDS ORDERED: ASPIRIN 81 MG PO SCH (09:00)
[2018-09-24] MEDS ORDERED: SODIUM BICARBONATE TAB 650 MG TAB PO SCH (09:00)
[2018-09-24] MEDS ORDERED: NON-FORMULARY DRUG (Multivit-Min/Fa/Lycopen/Lutein [Centrum Silver Tablet] 1 TAB) PO SCH (09:00)
--- NOTE | 2018-09-24 10:15 | P.HPOR ---
History of Present Illness H&P Date: 09/24/18 This is a 72-year old female who is admitted for a right hip fracture. Patient states that last night, 09/23/18, she felt dizzy as she was about to use the bathroom and fell. Patient states that she was unable to get up after this and was transported to [facility] via EMS. Patient also complains of pain in the right knee. Patient denies any loss of conciousness and states that she is not on any anticoagulants. Patient is on hemodialysis. Patient's past medical history significant for breast cancer, diabetes mellitus with neuropathy and retinopathy, GERD, hyperlipidemia, hypertension and renal disease. Patient denies any fever/chills, numbness, weakness, tingling, abdominal pain, shortness of breath or chest pain. Review of Systems See HPI. Past Medical History Past Medical History: Cancer, Diabetes Mellitus, Eye Disorder, GERD/Reflux, Hyperlipidemia, Hypertension, Osteoarthritis (OA), Renal Disease Additional Past Medical History / Comment(s): LEFT BREAST, STATES CURRENT BLADDER INFECTION, NEUROPATHY FEET, HANDS, RT EYE DIABETIC RETINOPATHY, STATES LITTLE VISION History of Any Multi-Drug Resistant Organisms: None Reported Past Surgical History: Section, Cholecystectomy, Tonsillectomy, Tubal Ligation Additional Past Surgical History / Comment(s): LEFT BREAST LUMPECTOMY, D&C, GERSON CATARACT SX Past Anesthesia/Blood Transfusion Reactions: Previous Problems w/ Anesthesia Additional Past Anesthesia/Blood Transfusion Reaction / Comment(s): STATED " TOOK A LONG TIME WAKING UP FROM ANESTHESIA" Past Psychological History: No Psychological Hx Reported Smoking Status: Never smoker Past Alcohol Use History: None Reported Past Drug Use History: None Reported - Past Family History Mother Family Medical History: No Reported History Brother(s) Family Medical History: Diabetes Mellitus Medications and Allergies Home Medications Medication Instructions Recorded Confirmed Type Fenofibrate [Lofibra] 160 mg PO DAILY 02/05/14 09/24/18 History Pantoprazole Sodium [Protonix] 40 mg PO DAILY 02/05/14 09/24/18 History Calcitriol [Rocaltrol] 0.25 mcg PO TH 10/16/17 09/24/18 History Aspirin 81 mg PO DAILY 07/31/18 09/24/18 History Letrozole [Femara] 2.5 mg PO DAILY 07/31/18 09/24/18 History Sodium Bicarbonate Tab 1,300 mg PO BID #120 tab 08/04/18 09/24/18 Rx amLODIPine [Norvasc] 10 mg PO DAILY #30 tab 08/04/18 09/24/18 Rx cloNIDine HCL [Catapres] 0.1 mg PO BID #60 tab 08/04/18 09/24/18 Rx Acetaminophen Tab [Tylenol] 325 mg PO HS 08/13/18 09/24/18 History Cholecalciferol (Vitamin D3) 2,000 unit PO DAILY 08/13/18 09/24/18 History [Vitamin D3] Ferrous Sulfate [Iron (65 MG 325 mg PO DAILY 08/13/18 09/24/18 History Elemental)] Multivit-Min/FA/Lycopen/Lutein 1 tab PO DAILY 08/13/18 09/24/18 History [Centrum Silver Tablet] Ondansetron HCl [Zofran] 8 mg PO DAILY 08/13/18 09/24/18 History Montelukast [Singulair] 10 mg PO HS tab 08/20/18 09/24/18 Rx Atenolol [Tenormin] 50 mg PO DAILY 09/24/18 09/24/18 History Atorvastatin [Lipitor] 10 mg PO HS 09/24/18 09/24/18 History Furosemide [Lasix] 80 mg PO BID 09/24/18 09/24/18 History Insuln Asp Prt/Insulin Aspart See Protocol SQ AC-BID 09/24/18 09/24/18 History [NovoLOG MIX 70-30 VIAL] Allergies Allergy/AdvReac Type Severity Reaction Status Date / Time Penicillins Allergy Rash/Hives Verified 09/24/18 07:45 Physical Examination On exam patient is lying comfortably in bed in no acute distress. Patient is alert and oriented x3. The right lower extremity is mildly shortened and externally rotated. There is tenderness to palpation over the right knee but no effusion, erythema or ecchymosis. Skin is intact. Calf is soft and nontender to palpation. Dorsalis pedis pulses 2+. The right lower extremity is warm and well perfused. Neurovascular status and circulatory status are intact. Exams of the head, neck, bilateral upper extremities and left lower extremity are within normal limits. Results CT's of the right femur and pelvis show a right femoral neck fracture. - Labs Labs: Abnormal Lab Results - Last 24 Hours (Table) 09/24/18 09/24/18 Range/Units 03:41 03:41 WBC 17.6 H (3.8-10.6) k/uL RBC 3.75 L (3.80-5.40) m/uL Hgb 11.2 L (11.4-16.0) gm/dL Hct 33.7 L (34.0-46.0) % Neutrophils # 13.8 H (1.3-7.7) k/uL Chloride 95 L (98-107) mmol/L Carbon Dioxide 32 H (22-30) mmol/L BUN 45 H (7-17) mg/dL Creatinine 4.21 H (0.52-1.04) mg/dL Glucose 168 H (74-99) mg/dL H & H 09/24/18 Range/Units 03:41 Hgb 11.2 L (11.4-16.0) gm/dL Hct 33.7 L (34.0-46.0) % Coagulation 09/24/18 Range/Units 03:41 INR 1.0 (<1.2) Result Diagrams: 09/24/18 03:41 09/24/18 03:41 Assessment and Plan Assessment: Breast cancer Diabetes mellitus with retinopathy and neuropathy GERD Hyperlipidemia Hypertension Renal disease (1) Fracture of femoral neck, right Current Visit: Yes Status: Acute Code(s): S72.001A - FRACTURE OF UNSP PART OF NECK OF RIGHT FEMUR, INIT SNOMED Code(s): 0315737 (2) Fall Current Visit: Yes Status: Acute Code(s): W19.XXXA - UNSPECIFIED FALL, INITIAL ENCOUNTER SNOMED Code(s): 8786627 Plan: 1. NPO after midnight. 2. Nonweightbearing to the right lower extremity. 3. Continue pain control. 4. CT's from [facility] are reviewed and show a right femoral neck fracture. X-rays of the right hip, right knee and pelvis are pending. 5. Right hip hemiarthroplasty is scheduled for 09/25/2018 pending medical clearance and consent.
--- NOTE | 2018-09-24 10:48 | XR ---
EXAMINATION TYPE: AP view pelvis and 2 views right hip DATE OF EXAM: 09/24/2018 COMPARISON: Correlation outside CT same day HISTORY: 72-year-old female pain after fall FINDINGS: External rotation of the right hip limits visualization of the femoral neck region. There is a very s ubtle lucency seen along the medial margin of the mid femoral neck. Mild degenerative spurring of bot h hips. IMPRESSION: External rotation of the right hip limits visualization of the femoral neck region. However, review o f the patient's outside CT performed today shows a minimally impacted, nondisplaced subcapital versus transcervical femoral neck fracture of the right hip.
--- NOTE | 2018-09-24 10:59 | XR ---
EXAMINATION TYPE: XR knee limited RT DATE OF EXAM: 09/24/2018 COMPARISON: Outside CT 10/02/2018 HISTORY: 72-year-old female with pain after fall TECHNIQUE: 3 views FINDINGS: There is some focal lucency involving the lateral femoral condyle peripherally but no well-defined fr acture seen. Small knee joint effusion. Extensor mechanism is intact. Tricompartmental degenerative s purring. IMPRESSION: 1. Focal abnormality of the subchondral bone at the posterior and peripheral articular surface of the lateral femoral condyle better seen on the patient's outside CT measuring 1.1 cm wide and 1.8 cm AP with 3 mm of articular surface depression. There are some tiny cystic changes in this region and the margins are somewhat ill-defined suggesting a more subacute injury, either an insufficiency fracture or osteochondral lesion. 2. Tricompartment osteoarthrosis with small knee joint effusion.
[2018-09-24] MEDS: ATENOLOL 50 MG TAB PO SCH (12:33)
[2018-09-24] MEDS: ONDANSETRON 4 MG TAB PO SCH (12:33)
[2018-09-24] MEDS: FERROUS SULFATE 325 MG TAB PO SCH (12:33)
[2018-09-24] MEDS: cloNIDine HCL 0.1 MG TAB PO SCH ×2 (12:33→22:42)
[2018-09-24] MEDS: PANTOPRAZOLE 40 MG TABLET PO SCH (12:33)
[2018-09-24] MEDS: CHOLECALCIFEROL 1,000 UNIT TAB PO SCH (12:34)
[2018-09-24] MEDS: LETROZOLE 2.5 MG TAB PO SCH (12:34)
[2018-09-24] MEDS: amLODIPine 10 MG TAB PO SCH (12:34)
[2018-09-24] MEDS: hydrALAZINE HCL 25 MG TAB PO SCH ×2 (12:34→22:43)
[2018-09-24 13:00] LABS: Glucose,Whole Blood 111 mg/dL (75-99)
--- NOTE | 2018-09-24 13:04 | P.NPCON ---
History of Present Illness - Reason for Consult end stage renal disease - History of Present Illness Reason for consultation: End-stage renal disease History of present illness: Patient is a 72-year-old female seen in consultation for end-stage renal disease. She is mentating on hemodialysis on a Saturday schedule via right chest permacath. Patient presented to the hospital after sustaining a fall. She is noted to have right hip fracture. She is scheduled for surgical repair tomorrow. Patient states she did not lose any consciousness when she fell. No fever or chills. No vomiting or diarrhea. Oral intake is fair. Patient has history of diastolic CHF. Hemodynamically stable. Patient is currently resting in bed. Denies significant pain. Last hemodialysis was on Saturday. Vital signs are stable. General: The patient appeared well nourished and normally developed. HEENT: Head exam is unremarkable. Neck is without jugular venous distension. LUNGS: Lungs are clear to auscultation and percussion. Breath sounds decreased. HEART: Rate and Rhythm are regular. First and second heart sounds normal. No murmurs, rubs or gallops. ABDOMEN: Abdominal exam reveals normal bowel sounds. Non-tender and non- distended. No evidence of peritonitis. EXTREMITITES: No clubbing, cyanosis, or edema. Past Medical History Past Medical History: Cancer, Diabetes Mellitus, Eye Disorder, GERD/Reflux, Hyperlipidemia, Hypertension, Osteoarthritis (OA), Renal Disease Additional Past Medical History / Comment(s): LEFT BREAST, STATES CURRENT BLADDER INFECTION, NEUROPATHY FEET, HANDS, RT EYE DIABETIC RETINOPATHY, STATES LITTLE VISION History of Any Multi-Drug Resistant Organisms: None Reported Past Surgical History: Section, Cholecystectomy, Tonsillectomy, Tubal Ligation Additional Past Surgical History / Comment(s): LEFT BREAST LUMPECTOMY, D&C, GERSON CATARACT SX Past Anesthesia/Blood Transfusion Reactions: Previous Problems w/ Anesthesia Additional Past Anesthesia/Blood Transfusion Reaction / Comment(s): STATED " TOOK A LONG TIME WAKING UP FROM ANESTHESIA" Past Psychological History: No Psychological Hx Reported Smoking Status: Never smoker Past Alcohol Use History: None Reported Past Drug Use History: None Reported - Past Family History Mother Family Medical History: No Reported History Brother(s) Family Medical History: Diabetes Mellitus Medications and Allergies Home Medications Medication Instructions Recorded Confirmed Type Fenofibrate [Lofibra] 160 mg PO DAILY 02/05/14 09/24/18 History Pantoprazole Sodium [Protonix] 40 mg PO DAILY 02/05/14 09/24/18 History Calcitriol [Rocaltrol] 0.25 mcg PO TH 10/16/17 09/24/18 History Aspirin 81 mg PO DAILY 07/31/18 09/24/18 History Letrozole [Femara] 2.5 mg PO DAILY 07/31/18 09/24/18 History Sodium Bicarbonate Tab 1,300 mg PO BID #120 tab 08/04/18 09/24/18 Rx amLODIPine [Norvasc] 10 mg PO DAILY #30 tab 08/04/18 09/24/18 Rx cloNIDine HCL [Catapres] 0.1 mg PO BID #60 tab 08/04/18 09/24/18 Rx Acetaminophen Tab [Tylenol] 325 mg PO HS 08/13/18 09/24/18 History Cholecalciferol (Vitamin D3) 2,000 unit PO DAILY 08/13/18 09/24/18 History [Vitamin D3] Ferrous Sulfate [Iron (65 MG 325 mg PO DAILY 08/13/18 09/24/18 History Elemental)] Multivit-Min/FA/Lycopen/Lutein 1 tab PO DAILY 08/13/18 09/24/18 History [Centrum Silver Tablet] Ondansetron HCl [Zofran] 8 mg PO DAILY 08/13/18 09/24/18 History Montelukast [Singulair] 10 mg PO HS tab 08/20/18 09/24/18 Rx Atenolol [Tenormin] 50 mg PO DAILY 09/24/18 09/24/18 History Atorvastatin [Lipitor] 10 mg PO HS 09/24/18 09/24/18 History Furosemide [Lasix] 80 mg PO BID 09/24/18 09/24/18 History Insulin NPL/Insulin Lispro 30 unit SQ HS 09/24/18 09/24/18 History [humaLOG MIX 75-25 VIAL] Insuln Asp Prt/Insulin Aspart See Protocol SQ AC-BID 09/24/18 09/24/18 History [NovoLOG MIX 70-30 VIAL] Allergies Allergy/AdvReac Type Severity Reaction Status Date / Time Penicillins Allergy Rash/Hives Verified 09/24/18 07:45 Physical Exam Vitals: Vital Signs Temp Pulse Pulse Resp BP BP Pulse Ox 09/24/18 08:00 97.7 F 80 16 124/57 95 09/24/18 07:00 97.5 F L 58 L 20 124/57 97 09/24/18 05:34 60 18 137/61 97 09/24/18 04:32 98.1 F 69 20 137/79 98 09/24/18 03:26 98.5 F 66 18 139/77 97 Intake and Output 09/23/18 09/24/18 09/24/18 22:59 06:59 14:59 Other: Voiding Method Indwelling Catheter Weight 78.925 kg Results - Lab Results Most recent lab results Calcium 9.1 mg/dL (8.4-10.2) 09/24/18 03:41 09/24/18 03:41 09/24/18 03:41 Assessment and Plan Plan: Assessment: 1. End-stage renal disease maintained on hemodialysis on a Saturday schedule via right chest permacath. 2. Status post fall with right hip fracture. 3. Hypertension with chronic kidney disease. Controlled. 4. Chronic kidney disease mineral bone disease maintained on calcitriol. 5. Anemia of chronic kidney disease. Hemoglobin at goal. Plan: Hemodialysis today. Discontinue sodium bicarbonate. Check phosphorus level. Cleared for hip surgery tomorrow from nephrology standpoint. Thank you for the consultation. I will continue to follow the patient with you during her hospital stay.
--- NOTE | 2018-09-24 15:03 | P.CONS ---
History of Present Illness - History of Present Illness This is a pleasant 72 years old female who has history of end-stage renal disease on hemodialysis, hyperlipidemia, hypertension, GERD, diabetes mellitus, she presents because of fall and right hip fracture, patient could not tell how much insulin she was taking, however we put her on sliding scale. Patient has been evaluated by nephrology and orthopedic team. Patient is planned to go for surgery tomorrow. Patient thinks she took her aspirin today, so Aspirin is on hold , Review of Systems CONSTITUTIONAL: No fever, no malaise, no fatigue. HEENT: No recent visual problems or hearing problems. Denied any sore throat. CARDIOVASCULAR: No orthopnea, PND, no palpitations, no syncope. PULMONARY: No shortness of breath, no cough, no hemoptysis. GASTROINTESTINAL: No diarrhea, no nausea, no vomiting, no abdominal pain. Normoactive bowel sounds. NEUROLOGICAL: No headaches, no weakness, no numbness. HEMATOLOGICAL: Denies any bleeding or petechiae. GENITOURINARY: Denies any burning micturition, frequency, or urgency. MUSCULOSKELETAL/RHEUMATOLOGICAL: Denies any joint pain, swelling, or any muscle pain. ENDOCRINE: Denies any polyuria or polydipsia. Past Medical History Past Medical History: Cancer, Diabetes Mellitus, Eye Disorder, GERD/Reflux, Hyperlipidemia, Hypertension, Osteoarthritis (OA), Renal Disease Additional Past Medical History / Comment(s): LEFT BREAST, STATES CURRENT BLADDER INFECTION, NEUROPATHY FEET, HANDS, RT EYE DIABETIC RETINOPATHY, STATES LITTLE VISION History of Any Multi-Drug Resistant Organisms: None Reported Past Surgical History: Section, Cholecystectomy, Tonsillectomy, Tubal Ligation Additional Past Surgical History / Comment(s): LEFT BREAST LUMPECTOMY, D&C, GERSON CATARACT SX Past Anesthesia/Blood Transfusion Reactions: Previous Problems w/ Anesthesia Additional Past Anesthesia/Blood Transfusion Reaction / Comm: STATED "TOOK A LONG TIME WAKING UP FROM ANESTHESIA" Past Psychological History: No Psychological Hx Reported Smoking Status: Never smoker Past Alcohol Use History: None Reported Past Drug Use History: None Reported - Past Family History Mother Family Medical History: No Reported History Brother(s) Family Medical History: Diabetes Mellitus Medications and Allergies Home Medications Medication Instructions Recorded Confirmed Type Fenofibrate [Lofibra] 160 mg PO DAILY 02/05/14 09/24/18 History Pantoprazole Sodium [Protonix] 40 mg PO DAILY 02/05/14 09/24/18 History Calcitriol [Rocaltrol] 0.25 mcg PO TH 10/16/17 09/24/18 History Aspirin 81 mg PO DAILY 07/31/18 09/24/18 History Letrozole [Femara] 2.5 mg PO DAILY 07/31/18 09/24/18 History Sodium Bicarbonate Tab 1,300 mg PO BID #120 tab 08/04/18 09/24/18 Rx amLODIPine [Norvasc] 10 mg PO DAILY #30 tab 08/04/18 09/24/18 Rx cloNIDine HCL [Catapres] 0.1 mg PO BID #60 tab 08/04/18 09/24/18 Rx Acetaminophen Tab [Tylenol] 325 mg PO HS 08/13/18 09/24/18 History Cholecalciferol (Vitamin D3) 2,000 unit PO DAILY 08/13/18 09/24/18 History [Vitamin D3] Ferrous Sulfate [Iron (65 MG 325 mg PO DAILY 08/13/18 09/24/18 History Elemental)] Multivit-Min/FA/Lycopen/Lutein 1 tab PO DAILY 08/13/18 09/24/18 History [Centrum Silver Tablet] Ondansetron HCl [Zofran] 8 mg PO DAILY 08/13/18 09/24/18 History Montelukast [Singulair] 10 mg PO HS tab 08/20/18 09/24/18 Rx Atenolol [Tenormin] 50 mg PO DAILY 09/24/18 09/24/18 History Atorvastatin [Lipitor] 10 mg PO HS 09/24/18 09/24/18 History Furosemide [Lasix] 80 mg PO BID 09/24/18 09/24/18 History Insulin NPL/Insulin Lispro 30 unit SQ HS 09/24/18 09/24/18 History [humaLOG MIX 75-25 VIAL] Insuln Asp Prt/Insulin Aspart See Protocol SQ AC-BID 09/24/18 09/24/18 History [NovoLOG MIX 70-30 VIAL] Allergies Allergy/AdvReac Type Severity Reaction Status Date / Time Penicillins Allergy Rash/Hives Verified 09/24/18 07:45 Physical Exam Vitals: Vital Signs Temp Pulse Pulse Resp BP BP Pulse Ox 09/24/18 12:00 97.6 F 61 17 122/57 96 09/24/18 08:00 97.7 F 80 16 124/57 95 09/24/18 07:00 97.5 F L 58 L 20 124/57 97 09/24/18 05:34 60 18 137/61 97 09/24/18 04:32 98.1 F 69 20 137/79 98 09/24/18 03:26 98.5 F 66 18 139/77 97 Intake and Output 09/23/18 09/24/18 09/24/18 22:59 06:59 14:59 Intake Total 1000 Balance 1000 Intake: IV 140 Sodium Chloride 0.9% 1, 140 000 ml @ 20 mls/hr IV . Q24H [facility] Rx#:[id number] Oral 860 Other: Voiding Method Indwelling Catheter Weight 78.925 kg GENERAL: The patient is alert and oriented x3, not in any acute distress. Well developed, well nourished. HEENT: Pupils are round and equally reacting to light. EOMI. No scleral icterus. No conjunctival pallor. Normocephalic, atraumatic. No pharyngeal erythema. No thyromegaly. CARDIOVASCULAR: S1 and S2 present. No murmurs, rubs, or gallops. PULMONARY: Chest is clear to auscultation, no wheezing or crackles. ABDOMEN: Soft, nontender, nondistended, normoactive bowel sounds. No palpable organomegaly. MUSCULOSKELETAL: No joint swelling or deformity. -EXTREMITIES: No cyanosis, clubbing, or pedal edema. Right lower extremity is shortened and externally rotated NEUROLOGICAL: Gross neurological examination did not reveal any focal deficits. SKIN: No rashes. Results CBC & Chem 7: 09/24/18 03:41 09/24/18 03:41 Labs: Abnormal Lab Results - Last 24 Hours (Table) 09/24/18 09/24/18 09/24/18 Range/Units 03:41 03:41 12:55 WBC 17.6 H (3.8-10.6) k/uL RBC 3.75 L (3.80-5.40) m/uL Hgb 11.2 L (11.4-16.0) gm/dL Hct 33.7 L (34.0-46.0) % Neutrophils # 13.8 H (1.3-7.7) k/uL Chloride 95 L (98-107) mmol/L Carbon Dioxide 32 H (22-30) mmol/L BUN 45 H (7-17) mg/dL Creatinine 4.21 H (0.52-1.04) mg/dL Glucose 168 H (74-99) mg/dL POC Glucose (mg/dL) 111 H (75-99) mg/dL Assessment and Plan Assessment: Right hip fracture End-stage renal disease on hemodialysis History of diabetes mellitus History of GERD History of hyperlipidemia History of essential hypertension Plan: This is a pleasant 72 years old female who presents because of fall, and right hip fracture. Patient is going for surgery tomorrow. The patient on sliding scale. Continue with beta pura. Patient is high-but acceptable risk for this moderate risk procedure. Labs and medication were reviewed.. Continue same treatment. Continue with symptomatic treatment. Resume home medication. Monitor lytes and vitals. DVT and GI prophylaxis. Further recommendations of the clinical course of the patient DVT prophylaxis: Subcutaneous heparin GI Prophylaxis: Pepcid PT/OT: Pending Prognosis is guarded
[2018-09-24] MEDS: FENOFIBRATE 160 MG TAB PO SCH (16:27)
[2018-09-24 17:15] LABS: Glucose,Whole Blood 145 mg/dL (75-99)
[2018-09-24] MEDS: INSULIN ASPART 100 UNIT/ML 1 ML 10 ML VIAL SQ SCH ×2 (17:24→22:48)
[2018-09-24] MEDS: HEPARIN SODIUM,PORCINE 5,000 UNIT/ML 1 ML VIAL SQ SCH ×2 (17:24→22:47)
[2018-09-24 17:38] LABS: Appearance,Urine Cloudy (Clear); Bacteria,Urine Many /hpf; Bilirubin,Urine Negative (Negative); Blood,Urine Moderate (Negative); Color,Urine Yellow; Glucose,Urine (UA) 1+ (Negative); Ketones,Urine Negative (Negative); Leukocyte Esterase,Urine Large (Negative); Mucus,Urine Rare /hpf; Nitrite,Urine Negative (Negative); Protein,Urine 3+ (Negative); RBC,Urine 11 /hpf (0-5); Specific Gravity,Urine 1.016 (1.001-1.035); Squamous Epithelial Cell,Urine 3 /hpf (0-4); Urobilinogen,Urine <2.0 mg/dL (<2.0); WBC,Urine >182 /hpf (0-5)
[2018-09-24] MEDS ORDERED: FAMOTIDINE 20 MG/2 ML VIAL IV SCH (21:00)
[2018-09-24] MEDS ORDERED: ONDANSETRON 4 MG/2 ML VIAL IVP ONE (21:42)
[2018-09-24] MEDS ORDERED: fentaNYL (PF) 50 MCG/ML 2 ML AMP IV PRN (21:42)
[2018-09-24] MEDS ORDERED: MIDAZOLAM (PF) 2 MG/2 ML VIAL IV PRN (21:42)
[2018-09-24] MEDS ORDERED: LIDOCAINE 1% 20 ML VIAL (10MG/ML) FOR IV START INTRADERMA PRN (21:42)
[2018-09-24] MEDS: ACETAMINOPHEN TAB 325 MG TAB PO SCH (22:41)
[2018-09-24] MEDS: ATORVASTATIN 10 MG TAB PO SCH (22:42)
[2018-09-24] MEDS: MONTELUKAST 10 MG TAB PO SCH (22:43)
[2018-09-24] MEDS: LACTATED RINGERS 1,000 ML IV SCH (22:49)
[2018-09-24 22:55] LABS: Glucose,Whole Blood 147 mg/dL (75-99)
[2018-09-25 05:58] LABS: Glucose,Whole Blood 106 mg/dL (75-99)
[2018-09-25] MEDS ORDERED: DEXAMETHASONE SOD PHOSPHATE 10 MG/ML 1 ML VIAL IV ONE (06:00)
[2018-09-25] MEDS: IPRATROPIUM-ALBUTEROL 3 ML NEB INHALATION SCH ×4 (07:10→21:07)
[2018-09-25] MEDS ORDERED: CALCITRIOL 0.25 MCG CAP PO SCH (09:00)
[2018-09-25] MEDS ORDERED: LEVOFLOXACIN 500MG-D5W PMX 500 MG in DEXTROSE/WATER 1 100ML.BAG IVPB SCH (09:00)
[2018-09-25] MEDS: SODIUM CHLORIDE 0.9% 1,000 ML IV SCH (09:16)
[2018-09-25] MEDS: HEPARIN SODIUM,PORCINE 5,000 UNIT/ML 1 ML VIAL SQ SCH ×2 (09:17→20:08)
[2018-09-25] MEDS: INSULIN ASPART 100 UNIT/ML 1 ML 10 ML VIAL SQ SCH ×4 (09:17→20:15)
[2018-09-25] MEDS: PANTOPRAZOLE 40 MG TABLET PO SCH (09:20)
[2018-09-25] MEDS: CHOLECALCIFEROL 1,000 UNIT TAB PO SCH (09:21)
[2018-09-25] MEDS: FERROUS SULFATE 325 MG TAB PO SCH (09:21)
[2018-09-25] MEDS: FENOFIBRATE 160 MG TAB PO SCH (09:21)
[2018-09-25] MEDS: ATENOLOL 50 MG TAB PO SCH (09:21)
[2018-09-25] MEDS: hydrALAZINE HCL 25 MG TAB PO SCH ×2 (09:21→20:13)
[2018-09-25] MEDS: cloNIDine HCL 0.1 MG TAB PO SCH ×2 (09:21→20:13)
[2018-09-25] MEDS: LETROZOLE 2.5 MG TAB PO SCH (09:21)
[2018-09-25] MEDS: amLODIPine 10 MG TAB PO SCH (09:21)
[2018-09-25] MEDS: ONDANSETRON 4 MG TAB PO SCH (09:22)
--- NOTE | 2018-09-25 10:14 | P.PN ---
Subjective Progress Note Date: 09/25/18 This is a 72-year-old female who is admitted for a right hip fracture. The patient's surgery was canceled for today due to UTI and elevated white count. Patient is also awaiting cardiology clearance. Patient denies any new symptoms today and states that her pain is under control. Patient denies any shortness of breath, chest pain, fever/chills, numbness, weakness or tingling. Objective - Vital Signs Vital signs: Vital Signs Temp 99.4 F 09/25/18 04:00 Pulse 61 09/25/18 04:00 Resp 18 09/25/18 04:00 BP 140/64 09/25/18 04:00 Pulse Ox 98 09/25/18 04:00 Intake & Output 09/24/18 09/25/18 09/25/18 18:59 06:59 18:59 Intake Total 1240 0 Output Total 375 1725 Balance 865 -1725 0 Weight 78.925 kg 72 kg Intake: IV 140 Sodium Chloride 0.9% 1, 140 000 ml @ 20 mls/hr IV . Q24H [facility] Rx#:[id number] Oral 1100 0 Output: Urine 375 1725 Uretheral ([place]) 375 1125 Other: Voiding Method Indwelling Catheter Indwelling Catheter - Exam On exam the patient is lying comfortably in bed in no acute distress. Patient is alert and oriented 3. Right lower extremity is mildly shortened and externally rotated. Right lower extremity is warm and well perfused. Neurovascular status and circulatory status are intact. - Labs CBC & Chem 7: 09/24/18 03:41 09/24/18 03:41 Labs: Abnormal Lab Results - Last 24 Hours (Table) 09/24/18 09/24/18 09/24/18 Range/Units 12:55 17:04 17:12 POC Glucose (mg/dL) 111 H 145 H (75-99) mg/dL Phosphorus (2.5-4.5) mg/dL Urine Appearance Cloudy H (Clear) Urine Protein 3+ H (Negative) Urine Glucose (UA) 1+ H (Negative) Urine Blood Moderate H (Negative) Ur Leukocyte Esterase Large H (Negative) Urine RBC 11 H (0-5) /hpf Urine WBC >182 H (0-5) /hpf Urine WBC Clumps Many H (None) /hpf Urine Bacteria Many H (None) /hpf Urine Mucus Rare H (None) /hpf 09/24/18 09/25/18 09/25/18 Range/Units 22:54 05:57 06:57 POC Glucose (mg/dL) 147 H 106 H (75-99) mg/dL Phosphorus 5.8 H (2.5-4.5) mg/dL Urine Appearance (Clear) Urine Protein (Negative) Urine Glucose (UA) (Negative) Urine Blood (Negative) Ur Leukocyte Esterase (Negative) Urine RBC (0-5) /hpf Urine WBC (0-5) /hpf Urine WBC Clumps (None) /hpf Urine Bacteria (None) /hpf Urine Mucus (None) /hpf Assessment and Plan Assessment: History of breast cancer Diabetes mellitus with retinopathy and neuropathy GERD Hyperlipidemia Hypertension Renal disease (1) Fracture of femoral neck, right Current Visit: Yes Status: Acute Code(s): S72.001A - FRACTURE OF UNSP PART OF NECK OF RIGHT FEMUR, INIT SNOMED Code(s): 6767161 (2) Fall Current Visit: Yes Status: Acute Code(s): W19.XXXA - UNSPECIFIED FALL, INITIAL ENCOUNTER SNOMED Code(s): 6599413 Plan: 1. Right hip hemiarthroplasty is canceled today due to elevated white count and UTI. Patient is also awaiting cardiology clearance. 2. Nonweightbearing to the right lower extremity. 3. Continue pain control. 4. X-rays of the right hip and pelvis are reviewed showing right femoral neck fracture. X-rays of the right knee are reviewed showing mild osteoarthritic changes and cortical defect of the lateral femoral condyle. 5. NPO after midnight. 6. Right hip hemiarthroplasty scheduled for 09/26/2018 pending repeat labs and cardiology clearance.
[2018-09-25] MEDS: MORPHINE SULFATE 4 MG/ML SYRINGE IV PRN ×3 (10:59→17:58)
--- NOTE | 2018-09-25 11:18 | P.CRDCN ---
History of Present Illness History of present illness: This is Dr. Jean dictating a consult on this patient The patient was interviewed and examined by me IMPRESSION / ASSESSMENT: History of fall related to vertigo-like symptoms. Patient describes a spinning sensation No chest pain no shortness of breath no presyncopal spells prior to fall Patient is a fracture is awaiting surgery History of chronic kidney disease creatinine 4.1 Hypertension Type 2 diabetes PLAN: Proceed with surgery Continue current medications perioperatively as well as postoperatively HPI Patient presented with a fall associated with dizziness/vertigo. No cardiac symptoms prior to that no chest discomfort or shortness of breath at this time no respiratory distress Twelve-lead ECG shows sinus rhythm normal HI interval narrow QRS QT interval [address] segments ROS: No fever chills or rigors, no cough, phlegm or expectoration, no nausea, vomiting or diarrhea, no hematuria, dysuria, no musculoskeletal complaints, no strokes or seizures, no skin lesions. EXAMINATION: On examination blood pressure is 140 was 64 mmHg pulse rate is in the 60s afebrile Breath sounds are clear no rhonchi no crackles Heart sounds are normal Abdomen soft Patient is in pain in the hip REVIEW OF LABS, ECG & MEDICAL DATA Sodium 139 potassium 3.6 BUN 45 creatinine 4.01 Past Medical History Past Medical History: Cancer, Heart Failure, Diabetes Mellitus, Eye Disorder, GERD/Reflux, Hyperlipidemia, Hypertension, Osteoarthritis (OA), Pneumonia, Renal Disease Additional Past Medical History / Comment(s): HX OF LEFT BREAST CANCER- SX. STATES CURRENT BLADDER INFECTION, NEUROPATHY FEET, HANDS, RT EYE DIABETIC RETINOPATHY, STATES LITTLE VISION, HAD A PNE VACCINE NOT SURE OF DATE, WRTITER UNABLE TO VERIFY DATE AT TIME OF ADMIT,PLEASE F/U IN AM History of Any Multi-Drug Resistant Organisms: None Reported Past Surgical History: Section, Cholecystectomy, Tonsillectomy, Tubal Ligation Additional Past Surgical History / Comment(s): LEFT BREAST LUMPECTOMY- no chemo , no radiation but took hormone pills, D&C, GERSON CATARACT SX-LENS IMPLANTS. Past Anesthesia/Blood Transfusion Reactions: Previous Problems w/ Anesthesia Additional Past Anesthesia/Blood Transfusion Reaction / Comment(s): STATED " TOOK A LONG TIME WAKING UP FROM ANESTHESIA" Smoking Status: Former smoker - Past Family History Mother Family Medical History: No Reported History Brother(s) Family Medical History: Diabetes Mellitus Medications and Allergies Home Medications Medication Instructions Recorded Confirmed Type Fenofibrate [Lofibra] 160 mg PO DAILY 02/05/14 09/24/18 History Pantoprazole Sodium [Protonix] 40 mg PO DAILY 02/05/14 09/24/18 History Calcitriol [Rocaltrol] 0.25 mcg PO TH 10/16/17 09/24/18 History Aspirin 81 mg PO DAILY 07/31/18 09/24/18 History Letrozole [Femara] 2.5 mg PO DAILY 07/31/18 09/24/18 History Sodium Bicarbonate Tab 1,300 mg PO BID #120 tab 08/04/18 09/24/18 Rx amLODIPine [Norvasc] 10 mg PO DAILY #30 tab 08/04/18 09/24/18 Rx cloNIDine HCL [Catapres] 0.1 mg PO BID #60 tab 08/04/18 09/24/18 Rx Acetaminophen Tab [Tylenol] 325 mg PO HS 08/13/18 09/24/18 History Cholecalciferol (Vitamin D3) 2,000 unit PO DAILY 08/13/18 09/24/18 History [Vitamin D3] Ferrous Sulfate [Iron (65 MG 325 mg PO DAILY 08/13/18 09/24/18 History Elemental)] Multivit-Min/FA/Lycopen/Lutein 1 tab PO DAILY 08/13/18 09/24/18 History [Centrum Silver Tablet] Ondansetron HCl [Zofran] 8 mg PO DAILY 08/13/18 09/24/18 History Montelukast [Singulair] 10 mg PO HS tab 08/20/18 09/24/18 Rx Atenolol [Tenormin] 50 mg PO DAILY 09/24/18 09/24/18 History Atorvastatin [Lipitor] 10 mg PO HS 09/24/18 09/24/18 History Furosemide [Lasix] 80 mg PO BID 09/24/18 09/24/18 History Insulin NPL/Insulin Lispro 30 unit SQ HS 09/24/18 09/24/18 History [humaLOG MIX 75-25 VIAL] Insuln Asp Prt/Insulin Aspart See Protocol SQ AC-BID 09/24/18 09/24/18 History [NovoLOG MIX 70-30 VIAL] Allergies Allergy/AdvReac Type Severity Reaction Status Date / Time Penicillins Allergy Rash/Hives Verified 09/24/18 07:45 Physical Exam Vitals: Vital Signs Temp Pulse Pulse Resp BP BP Pulse Ox 09/25/18 04:00 99.4 F 61 18 140/64 98 09/25/18 00:00 99.2 F 67 18 141/63 97 09/24/18 20:00 99.3 F 70 70 18 157/66 94 L 09/24/18 16:00 98.2 F 68 17 111/58 09/24/18 12:00 97.6 F 61 17 122/57 96 Intake and Output 09/24/18 09/25/18 09/25/18 22:59 06:59 14:59 Intake Total 240 0 Output Total 950 1150 Balance -710 -1150 0 Intake: Oral 240 0 Output: Urine 950 1150 Uretheral ([place]) 750 750 Other: Voiding Method Indwelling Catheter Indwelling Catheter Weight 78.925 kg 72 kg Results 09/24/18 03:41 09/24/18 03:41 Current Medications Generic Name Dose Route Start Last Admin Trade Name Freq PRN Reason Stop Dose Admin Acetaminophen 325 mg 09/24/18 21:00 09/24/18 22:41 Tylenol Tab PO 325 mg HS [facility] Administration Albuterol/Ipratropium 3 ml 09/24/18 08:00 09/25/18 07:10 Duoneb 0.5 Mg-3 Mg/3 Ml Soln INHALATION Not Given RT-QID [place] Albuterol/Ipratropium 3 ml 09/24/18 03:47 Duoneb 0.5 Mg-3 Mg/3 Ml Soln INHALATION Q4H PRN Shortness Of Breath Or Wheezing Amlodipine Besylate 10 mg 09/24/18 09:00 09/25/18 09:21 Norvasc PO 10 mg DAILY [facility] Administration Atenolol 100 mg 09/24/18 09:00 09/25/18 09:21 Tenormin PO 100 mg DAILY [facility] Administration Atorvastatin Calcium 40 mg 09/24/18 21:00 09/24/18 22:42 Lipitor PO 40 mg HS [facility] Administration Calcitriol 0.25 mcg 09/25/18 09:00 09/25/18 09:21 Rocaltrol PO 0.25 mcg TH [facility] Administration Cholecalciferol 2,000 unit 09/24/18 09:00 09/25/18 09:21 Vitamin D3 PO 2,000 unit DAILY [place] Administration Clonidine 0.1 mg 09/24/18 09:00 09/25/18 09:21 Catapres PO 0.1 mg BID [place] Administration Famotidine 20 mg 09/24/18 21:00 09/24/18 22:44 Pepcid IV 20 mg Q24H [place] Administration Fenofibrate 160 mg 09/24/18 09:00 09/25/18 09:21 Lofibra PO 160 mg DAILY [place] Administration Fentanyl Citrate 50 mcg 09/24/18 21:42 Sublimaze IV 09/25/18 21:43 Q3M PRN Pain Control Ferrous Sulfate 325 mg 09/24/18 09:00 09/25/18 09:21 Feosol PO 325 mg DAILY [place] Administration Heparin Sodium (Porcine) 5,000 unit 09/24/18 15:00 09/25/18 09:17 Heparin SQ Not Given Q12HR [place] Hydralazine HCl 25 mg 09/24/18 09:00 09/25/18 09:21 Apresoline PO 25 mg BID [place] Administration Sodium Chloride 1,000 mls @ 20 mls/hr 09/24/18 03:45 09/25/18 09:16 Saline 0.9% IV Not Given .Q24H [place] Lactated Ringer's 1,000 mls @ 20 mls/hr 09/24/18 21:45 09/24/18 22:49 Lactated Ringers IV 20 mls/hr .Q24H [place] Administration Levofloxacin 500 mg/ IV 100 mls @ 100 mls/hr 09/25/18 09:00 09/25/18 09:22 Solution IVPB 100 mls/hr Q24H [place] Administration Insulin Aspart 0 unit 09/24/18 17:30 09/25/18 09:17 Novolog SQ Not Given ACHS [facility] Protocol Letrozole 2.5 mg 09/24/18 09:00 09/25/18 09:21 Femara PO 2.5 mg DAILY [facility] Administration Lidocaine HCl 0.1 ml 09/24/18 21:42 .Xylocaine 1% Inj (10mg/Ml) For Iv Start INTRADERMA PER PROTOCOL PRN IV Start Loperamide HCl 2 mg 09/24/18 03:47 Imodium PO QID PRN Diarrhea Midazolam HCl 2 mg 09/24/18 21:42 Versed Pf IV 09/25/18 21:43 ONCE PRN Anxiety Montelukast Sodium 10 mg 09/24/18 21:00 09/24/18 22:43 Singulair PO 10 mg HS [place] Administration Morphine Sulfate 4 mg 09/24/18 03:48 09/25/18 10:59 Morphine Sulfate (Inj) IV 4 mg Q3H PRN Administration Pain Naloxone HCl 0.2 mg 09/24/18 03:44 Narcan IV Q2M PRN Opioid Reversal Ondansetron HCl 8 mg 09/24/18 09:00 09/25/18 09:22 Zofran PO 8 mg DAILY [place] Administration Pantoprazole Sodium 40 mg 09/24/18 07:30 09/25/18 09:20 Protonix PO 40 mg DAILY@0730 [place] Administration Intake and Output 09/24/18 09/25/18 09/25/18 22:59 06:59 14:59 Intake Total 240 0 Output Total 950 1150 Balance -710 -1150 0 Intake: Oral 240 0 Output: Urine 950 1150 Uretheral ([place]) 750 750 Other: Voiding Method Indwelling Catheter Indwelling Catheter Weight 78.925 kg 72 kg 09/24/18 03:41 09/24/18 03:41
[2018-09-25 12:09] LABS: Glucose,Whole Blood 167 mg/dL (75-99)
--- NOTE | 2018-09-25 12:18 | P.PN ---
Subjective Patient is seen in follow-up for end-stage renal disease. Patient is maintained on hemodialysis on a Saturday schedule. Patient sustained a fall and has a right-sided hip fracture. She will be scheduled for surgery either today or tomorrow by orthopedic surgery. Currently resting in bed. Denies chest pain or shortness of breath. Vital signs are stable. General: The patient appeared well nourished and normally developed. HEENT: Head exam is unremarkable. Neck is without jugular venous distension. LUNGS: Lungs are clear to auscultation and percussion. Breath sounds decreased. HEART: Rate and Rhythm are regular. First and second heart sounds normal. No murmurs, rubs or gallops. ABDOMEN: Abdominal exam reveals normal bowel sounds. Non-tender and non- distended. No evidence of peritonitis. EXTREMITITES: No clubbing, cyanosis, or edema. Objective - Vital Signs Vital signs: Vital Signs Temp 97.1 F L 09/25/18 10:12 Pulse 68 09/25/18 10:12 Resp 18 09/25/18 04:00 BP 144/66 09/25/18 10:12 Pulse Ox 98 09/25/18 10:12 Intake & Output 09/24/18 09/25/18 09/25/18 18:59 06:59 18:59 Intake Total 1240 0 Output Total 375 1725 375 Balance 865 -1725 -375 Weight 78.925 kg 72 kg Intake: IV 140 Sodium Chloride 0.9% 1, 140 000 ml @ 20 mls/hr IV . Q24H [facility] Rx#:[id number] Oral 1100 0 Output: Urine 375 1725 375 Uretheral ([place]) 375 1125 375 Other: Voiding Method Indwelling Catheter Indwelling Catheter Indwelling Catheter - Labs CBC & Chem 7: 09/24/18 03:41 09/24/18 03:41 Labs: Abnormal Lab Results - Last 24 Hours (Table) 09/24/18 09/24/18 09/24/18 Range/Units 12:55 17:04 17:12 POC Glucose (mg/dL) 111 H 145 H (75-99) mg/dL Phosphorus (2.5-4.5) mg/dL Urine Appearance Cloudy H (Clear) Urine Protein 3+ H (Negative) Urine Glucose (UA) 1+ H (Negative) Urine Blood Moderate H (Negative) Ur Leukocyte Esterase Large H (Negative) Urine RBC 11 H (0-5) /hpf Urine WBC >182 H (0-5) /hpf Urine WBC Clumps Many H (None) /hpf Urine Bacteria Many H (None) /hpf Urine Mucus Rare H (None) /hpf 09/24/18 09/25/18 09/25/18 Range/Units 22:54 05:57 06:57 POC Glucose (mg/dL) 147 H 106 H (75-99) mg/dL Phosphorus 5.8 H (2.5-4.5) mg/dL Urine Appearance (Clear) Urine Protein (Negative) Urine Glucose (UA) (Negative) Urine Blood (Negative) Ur Leukocyte Esterase (Negative) Urine RBC (0-5) /hpf Urine WBC (0-5) /hpf Urine WBC Clumps (None) /hpf Urine Bacteria (None) /hpf Urine Mucus (None) /hpf 09/25/18 Range/Units 11:47 POC Glucose (mg/dL) 167 H (75-99) mg/dL Phosphorus (2.5-4.5) mg/dL Urine Appearance (Clear) Urine Protein (Negative) Urine Glucose (UA) (Negative) Urine Blood (Negative) Ur Leukocyte Esterase (Negative) Urine RBC (0-5) /hpf Urine WBC (0-5) /hpf Urine WBC Clumps (None) /hpf Urine Bacteria (None) /hpf Urine Mucus (None) /hpf Assessment and Plan Plan: Assessment: 1. End-stage renal disease maintained on hemodialysis on a Saturday schedule via right chest permacath. 2. Status post fall with right hip fracture. 3. Hypertension with chronic kidney disease. Controlled. 4. Chronic kidney disease mineral bone disease maintained on calcitriol. Phosphorus level above goal at 5.8. 5. Anemia of chronic kidney disease. Hemoglobin at goal. Plan: Hemodialysis today and again tomorrow per her outpatient schedule. Discontinue sodium bicarbonate. Cleared for hip surgery tomorrow from nephrology standpoint. Repeat phosphorus level tomorrow.
[2018-09-25] MEDS ORDERED: ONDANSETRON 4 MG/2 ML VIAL IVP PRN (13:18)
--- NOTE | 2018-09-25 14:20 | P.PN ---
Subjective This is a pleasant 72 years old female who has history of end-stage renal disease on hemodialysis, hyperlipidemia, hypertension, GERD, diabetes mellitus, she presents because of fall and right hip fracture, patient could not tell how much insulin she was taking, however we put her on sliding scale. Patient has been evaluated by nephrology and orthopedic team. Patient is planned to go for surgery tomorrow. Patient thinks she took her aspirin today, so Aspirin is on hold , 09/25/2018 Patient surgeon Monroe postponed until tomorrow. She is given for hemodialysis today and tomorrow. Patient is upset because she couldn't get the surgery today. She has some nausea and has been treated by the staff. Objective - Vital Signs Vital signs: Vital Signs Temp 97.1 F L 09/25/18 10:12 Pulse 70 09/25/18 12:33 Resp 18 09/25/18 04:00 BP 144/66 09/25/18 10:12 Pulse Ox 98 09/25/18 10:12 Intake & Output 09/24/18 09/25/18 09/25/18 18:59 06:59 18:59 Intake Total 1240 0 Output Total 375 1725 375 Balance 865 -1725 -375 Weight 78.925 kg 72 kg Intake: IV 140 Sodium Chloride 0.9% 1, 140 000 ml @ 20 mls/hr IV . Q24H [facility] Rx#:[id number] Oral 1100 0 Output: Urine 375 1725 375 Uretheral ([place]) 375 1125 375 Other: Voiding Method Indwelling Catheter Indwelling Catheter Indwelling Catheter - Exam GENERAL: The patient is alert and oriented x3, not in any acute distress. Well developed, well nourished. HEENT: Pupils are round and equally reacting to light. EOMI. No scleral icterus. No conjunctival pallor. Normocephalic, atraumatic. No pharyngeal erythema. No thyromegaly. CARDIOVASCULAR: S1 and S2 present. No murmurs, rubs, or gallops. PULMONARY: Chest is clear to auscultation, no wheezing or crackles. ABDOMEN: Soft, nontender, nondistended, normoactive bowel sounds. No palpable organomegaly. MUSCULOSKELETAL: No joint swelling or deformity. -EXTREMITIES: No cyanosis, clubbing, or pedal edema. Right lower extremity is shortened and externally rotated NEUROLOGICAL: Gross neurological examination did not reveal any focal deficits. SKIN: No rashes. - Labs CBC & Chem 7: 09/24/18 03:41 09/24/18 03:41 Labs: Abnormal Lab Results - Last 24 Hours (Table) 09/24/18 09/24/18 09/24/18 Range/Units 17:04 17:12 22:54 POC Glucose (mg/dL) 145 H 147 H (75-99) mg/dL Phosphorus (2.5-4.5) mg/dL Urine Appearance Cloudy H (Clear) Urine Protein 3+ H (Negative) Urine Glucose (UA) 1+ H (Negative) Urine Blood Moderate H (Negative) Ur Leukocyte Esterase Large H (Negative) Urine RBC 11 H (0-5) /hpf Urine WBC >182 H (0-5) /hpf Urine WBC Clumps Many H (None) /hpf Urine Bacteria Many H (None) /hpf Urine Mucus Rare H (None) /hpf 09/25/18 09/25/18 09/25/18 Range/Units 05:57 06:57 11:47 POC Glucose (mg/dL) 106 H 167 H (75-99) mg/dL Phosphorus 5.8 H (2.5-4.5) mg/dL Urine Appearance (Clear) Urine Protein (Negative) Urine Glucose (UA) (Negative) Urine Blood (Negative) Ur Leukocyte Esterase (Negative) Urine RBC (0-5) /hpf Urine WBC (0-5) /hpf Urine WBC Clumps (None) /hpf Urine Bacteria (None) /hpf Urine Mucus (None) /hpf Assessment and Plan Assessment: Right hip fracture End-stage renal disease on hemodialysis History of diabetes mellitus History of GERD History of hyperlipidemia History of essential hypertension Plan: This is a pleasant 72 years old female who presents because of fall, and right hip fracture. Patient is going for surgery tomorrow. The patient on sliding scale. Continue with beta pura. Patient is high-but acceptable risk for this moderate risk procedure. Labs and medication were reviewed.. Continue same treatment. Continue with symptomatic treatment. Resume home medication. Monitor lytes and vitals. DVT and GI prophylaxis. Further recommendations of the clinical course of the patient DVT prophylaxis: Subcutaneous heparin GI Prophylaxis: Pepcid PT/OT: Pending Prognosis is guarded
[2018-09-25] MEDS ORDERED: HEPARIN SODIUM,PORCINE 5,000 UNIT/ML 1 ML VIAL ONE (15:00)
[2018-09-25 16:55] LABS: Glucose,Whole Blood 147 mg/dL (75-99)
[2018-09-25 20:05] LABS: Glucose,Whole Blood 169 mg/dL (75-99)
[2018-09-25] MEDS: ATORVASTATIN 10 MG TAB PO SCH (20:13)
[2018-09-25] MEDS: MONTELUKAST 10 MG TAB PO SCH (20:13)
[2018-09-25] MEDS: ACETAMINOPHEN TAB 325 MG TAB PO SCH (20:13)
[2018-09-25] MEDS: LACTATED RINGERS 1,000 ML IV SCH (22:07)
[2018-09-26 00:38] LABS: Basophils % (A) 0 %; Eosinophils # (A) 0.1 k/uL (0-0.7); Eosinophils % (A) 1 %; HCT 31.3 % (34.0-46.0); HGB 10.1 gm/dL (11.4-16.0); Lymphocytes # (A) 1.6 k/uL (1.0-4.8); Lymphocytes % (A) 12 %; MCH 29.3 pg (25.0-35.0); MCHC 32.2 g/dL (31.0-37.0); MCV 91.2 fL (80.0-100.0); Mean Platelet Volume 7.7; Monocytes # (A) 0.6 k/uL (0-1.0); Monocytes % (A) 4 %; Neutrophils # (A) 11.1 k/uL (1.3-7.7); Neutrophils % (A) 82 %; Platelet Count 201 k/uL (150-450); RBC 3.43 m/uL (3.80-5.40); RDW 13.7 % (11.5-15.5); WBC 13.4 k/uL (3.8-10.6)
[2018-09-26] MEDS: SODIUM CHLORIDE 0.9% 1,000 ML IV SCH ×2 (03:43→15:09)
[2018-09-26 07:03] LABS: Glucose,Whole Blood 116 mg/dL (75-99)
[2018-09-26 08:23] LABS: Basophils # (A) 0.1 k/uL (0-0.2); Basophils % (A) 0 %; Eosinophils # (A) 0.3 k/uL (0-0.7); Eosinophils % (A) 2 %; HGB 9.6 gm/dL (11.4-16.0); Lymphocytes % (A) 16 %; MCHC 33.1 g/dL (31.0-37.0); MCV 90.5 fL (80.0-100.0); Mean Platelet Volume 8.3; Monocytes # (A) 0.7 k/uL (0-1.0); Monocytes % (A) 5 %; Neutrophils # (A) 9.7 k/uL (1.3-7.7); Neutrophils % (A) 76 %; Platelet Count 198 k/uL (150-450); RBC 3.21 m/uL (3.80-5.40); RDW 13.9 % (11.5-15.5); WBC 12.9 k/uL (3.8-10.6)
[2018-09-26] MEDS: IPRATROPIUM-ALBUTEROL 3 ML NEB INHALATION SCH ×4 (09:15→19:39)
[2018-09-26] MEDS: amLODIPine 10 MG TAB PO SCH (09:36)
[2018-09-26] MEDS: PANTOPRAZOLE 40 MG TABLET PO SCH (09:36)
[2018-09-26] MEDS: INSULIN ASPART 100 UNIT/ML 1 ML 10 ML VIAL SQ SCH ×4 (09:36→21:52)
[2018-09-26] MEDS: CHOLECALCIFEROL 1,000 UNIT TAB PO SCH (09:37)
[2018-09-26] MEDS: FENOFIBRATE 160 MG TAB PO SCH (09:37)
[2018-09-26] MEDS: FERROUS SULFATE 325 MG TAB PO SCH (09:37)
[2018-09-26] MEDS: hydrALAZINE HCL 25 MG TAB PO SCH ×2 (09:37→21:50)
[2018-09-26] MEDS: cloNIDine HCL 0.1 MG TAB PO SCH ×2 (09:37→21:50)
[2018-09-26] MEDS: LETROZOLE 2.5 MG TAB PO SCH (09:37)
[2018-09-26] MEDS: HEPARIN SODIUM,PORCINE 5,000 UNIT/ML 1 ML VIAL SQ SCH (09:37)
--- NOTE | 2018-09-26 09:37 | P.PN ---
Subjective Patient is seen in follow-up for end-stage renal disease. Patient is maintained on hemodialysis on a Saturday schedule. Patient sustained a fall and has a right-sided hip fracture. She is scheduled for surgery today by orthopedic surgery. Currently seen while undergoing hemodialysis. Denies chest pain or shortness of breath. Vital signs are stable. General: The patient appeared well nourished and normally developed. HEENT: Head exam is unremarkable. Neck is without jugular venous distension. LUNGS: Lungs are clear to auscultation and percussion. Breath sounds decreased. HEART: Rate and Rhythm are regular. First and second heart sounds normal. No murmurs, rubs or gallops. ABDOMEN: Abdominal exam reveals normal bowel sounds. Non-tender and non- distended. No evidence of peritonitis. EXTREMITITES: No clubbing, cyanosis, or edema. Objective - Vital Signs Vital signs: Vital Signs Temp 98.2 F 09/26/18 07:39 Pulse 70 09/26/18 07:39 Resp 14 09/26/18 07:39 BP 139/72 09/26/18 07:39 Pulse Ox 92 L 09/26/18 07:39 Intake & Output 09/25/18 09/26/18 09/26/18 18:59 06:59 18:59 Intake Total 400 Output Total 1375 500 Balance -975 -500 Weight 84 kg Intake: IV 160 Sodium Chloride 0.9% 1, 160 000 ml @ 20 mls/hr IV . Q24H [facility] Rx#:[id number] Oral 240 Output: Urine 375 500 Uretheral ([place]) 375 Other 1000 Other: Voiding Method Indwelling Catheter Indwelling Catheter Indwelling Catheter - Labs CBC & Chem 7: 09/26/18 07:20 09/24/18 03:41 Labs: Abnormal Lab Results - Last 24 Hours (Table) 09/25/18 09/25/18 09/25/18 Range/Units 11:47 16:35 20:04 WBC (3.8-10.6) k/uL RBC (3.80-5.40) m/uL Hgb (11.4-16.0) gm/dL Hct (34.0-46.0) % Neutrophils # (1.3-7.7) k/uL POC Glucose (mg/dL) 167 H 147 H 169 H (75-99) mg/dL 09/26/18 09/26/18 09/26/18 Range/Units 00:16 07:01 07:20 WBC 13.4 H 12.9 H (3.8-10.6) k/uL RBC 3.43 L 3.21 L (3.80-5.40) m/uL Hgb 10.1 L 9.6 L (11.4-16.0) gm/dL Hct 31.3 L 29.0 L (34.0-46.0) % Neutrophils # 11.1 H 9.7 H (1.3-7.7) k/uL POC Glucose (mg/dL) 116 H (75-99) mg/dL Assessment and Plan Plan: Assessment: 1. End-stage renal disease maintained on hemodialysis on a Saturday schedule via right chest permacath. 2. Status post fall with right hip fracture. 3. Hypertension with chronic kidney disease. Controlled. 4. Chronic kidney disease mineral bone disease maintained on calcitriol. Phosphorus level above goal at 5.8. Expect improvement postdialysis. 5. Anemia of chronic kidney disease. Plan: Currently seen while undergoing hemodialysis. Next treatment on Saturday. Cleared for hip surgery from nephrology standpoint. Add aranesp.
[2018-09-26 09:56] LABS: Calcium 9.1 mg/dL (8.4-10.2); Phosphorus 4.1 mg/dL (2.5-4.5); Potassium 3.7 mmol/L (3.5-5.1)
[2018-09-26] MEDS ORDERED: DARBEPOETIN ALFA 40 MCG/0.4 ML SYRINGE SQ SCH ×2 (10:00→14:00)
[2018-09-26] MEDS ORDERED: DIAZEPAM 5 MG TAB PO PRN (10:27)
[2018-09-26] MEDS ORDERED: NALOXONE 0.4 MG/ML 1 ML VIAL IV PRN (10:27)
[2018-09-26] MEDS ORDERED: MAGNESIUM HYDROXIDE 2,400 MG/10 ML CUP PO PRN (10:27)
[2018-09-26] MEDS ORDERED: HYDROmorphone 0.5 MG/0.5 ML SYRINGE IVP PRN ×3 (10:27)
[2018-09-26] MEDS: MORPHINE SULFATE 4 MG/ML SYRINGE IV PRN (10:34)
[2018-09-26] MEDS: LEVOFLOXACIN 250MG-D5W PMX 250 MG in DEXTROSE/WATER 1 50ML.BAG IVPB SCH (10:34)
[2018-09-26] MEDS: ATENOLOL 50 MG TAB PO SCH (10:38)
[2018-09-26 11:40] LABS: Glucose,Whole Blood 109 mg/dL (75-99)
[2018-09-26] MEDS ORDERED: IV FLUID CONTINUATION 1,000 ML IV ONE (11:43)
[2018-09-26] MEDS ORDERED: PROPOFOL 10 MG/ML 20 ML VIAL IV ONE (12:01)
[2018-09-26] MEDS: IV FLUID CONTINUATION 1,000 ML IV ONE ×2 (12:01→15:10)
[2018-09-26] MEDS ORDERED: fentaNYL (PF) 50 MCG/ML 2 ML AMP ONE (12:01)
[2018-09-26] MEDS ORDERED: MIDAZOLAM 2 MG/2 ML VIAL ONE (12:01)
[2018-09-26] MEDS ORDERED: KETAMINE 10 MG/ML 20 ML VIAL ONE (12:01)
[2018-09-26] MEDS ORDERED: LACTATED RINGERS 1,000 ML IV ONE ×2 (12:03→12:52)
[2018-09-26] MEDS ORDERED: ceFAZolin 1,000 MG/50 ML BAG (PMX) IVPB ONE (12:25)
[2018-09-26] MEDS ORDERED: CLINDAMYCIN 1,800 MG in SODIUM CHLORIDE 0.9% IRRIGATIO 3,000 ML IRRIGATION ONE (12:38)
--- NOTE | 2018-09-26 12:53 | P.OP ---
Date of Procedure: 09/26/18 Preoperative Diagnosis: Subcapital fracture right hip Postoperative Diagnosis: Subcapital fracture right hip Procedure(s) Performed: Right hip hemiarthroplasty Implants: Hollingsworth and nephew Polarstem size 2 standard Hollingsworth & Nephew tandem unipolar, 42 mm Hollingsworth & Nephew tandem unipolar 12/14 taper sleeve, +0 mm All components were press-fit. Anesthesia: spinal Surgeon: Juma Sumner Lead Cargoman #1: Rose Butcher Estimated Blood Loss (ml): 100 Pathology: other (Femoral head) Condition: stable Disposition: PACU Indications for Procedure: This is a 72-year-old female sustained a ground-level fall and landed onto her right hip. She sustained a subcapital fracture right hip after discussing the surgical and nonsurgical treatment options with her at length she wishes to proceed with a right hip hemiarthroplasty. Informed consent was obtained Operative Findings: Operative findings are consistent with a subcapital fracture of the right hip Description of Procedure: Patient was seen and evaluated in the preoperative area, consent was reviewed and the operative site was marked with a skin marker. Patient was then brought to the operating room and given 2 g of Ancef intravenously. A spinal anesthetic was administered by the anesthesia department. Patient was then placed in a lateral decubitus position and held with a Montral hip positioner. The bony prominences were well-padded and an axillary roll was placed. The hip was then prepped and draped in the usual sterile fashion. A universal timeout was then performed which confirmed the patient's name, surgical site, ALLERGIES, and procedure. A standard anterolateral approach the hip was performed. Skin and subcutaneous tissues were sharply incised with an incision centered over the tip of the greater trochanter. The incision was carefully dissected down to the fascia. The fascia was then split in line with skin incision and a Charnley retractor was gently placed. The abductors were then identified, and the anterior one third of the abductors were released off the trochanter and one large sleeve. The fracture hematoma was evacuated and the proximal femur was exposed by externally rotating the femur. The fracture site was readily visualized. Next , using an osteotomy guide, the proximal femur was osteotomized at the appropriate level of the above the lesser trochanter. This bone was then removed. Attention was then turned to the femoral head. Using a corkscrew, the femoral head was removed from the acetabulum without incident. The acetabulum was inspected, and found to have no significant arthrosis. Femoral head was then measured. Attention was then redirected to the femur. Proximal femur was re-exposed and a box osteotome was used to lateralize the proximal femur. A sandwich hand was then used to locate the femoral canal. Sequential broaching was then performed to the appropriate size. The calcar was then planed and trial head and neck were placed. The hip was then gently reduced. Leg lengths were checked and found to be equal. Hip was then taken through a full range of motion was stable throughout. The hip was then gently dislocated with the aid of a bone hook. The trial head and neck were then removed. The femoral broach was then inspected and found to have a secure fit. The broach was then removed. The hip was then copiously irrigated with antibiotic solution with a pulse lavage. Components were then opened and the femoral stem was then impacted into the proximal femur. The trunnion was cleaned and dried, and the femoral head and neck were then impacted. Hip was again gently reduced. Again leg lengths were checked and found to be equal, and the hip was taken through a full range of motion and found to be stable. The hip was again irrigated with pulsatile lavage, then followed by the Irrrisept solution. The abductors were then repaired through drill holes to the bone to the greater trochanter, utilizing #5 Ethibond suture. Next the fascia was repaired with #2 strata fix suture. The subcutaneous tissue was then repaired with 3-0 Vicryl. The subcuticular tissue was then repaired with 3-0 strata fix suture. Skin was then closed with Dermabond tape. A sterile dressing was then applied and the patient was transported to the recovery room in stable condition. Lead Cargoman JENNY Warren was required due to the complexity of surgery the need for skilled surgical endoscopist. She assisted with positioning the patient , draping the patient, retraction during the surgery, and closure of the wound.
--- NOTE | 2018-09-26 13:42 | XR ---
EXAMINATION TYPE: XR Hip Limited RT DATE OF EXAM: 09/26/2018 COMPARISON: NONE HISTORY: Postop TECHNIQUE: One view submitted. FINDINGS: There is a prosthetic hip in near anatomic alignment. There is soft tissue edema and emphysema. IMPRESSION: 1. Postoperative change. Appears in near-anatomic alignment.
[2018-09-26] MEDS: HYDROcodone/APAP 5-325MG 1 EACH TAB PO PRN ×2 (16:18→21:50)
[2018-09-26 17:24] LABS: Glucose,Whole Blood 110 mg/dL (75-99)
--- NOTE | 2018-09-26 19:22 | P.PN ---
Subjective This is a pleasant 72 years old female who has history of end-stage renal disease on hemodialysis, hyperlipidemia, hypertension, GERD, diabetes mellitus, she presents because of fall and right hip fracture, patient could not tell how much insulin she was taking, however we put her on sliding scale. Patient has been evaluated by nephrology and orthopedic team. Patient is planned to go for surgery tomorrow. Patient thinks she took her aspirin today, so Aspirin is on hold , 09/25/2018 Patient surgeon Monroe postponed until tomorrow. She is given for hemodialysis today and tomorrow. Patient is upset because she couldn't get the surgery today. She has some nausea and has been treated by the staff. 09/26/2018 patient underwent right hip hemiarthroplasty today for her right hip fracture. Patient is seen and evaluated after the surgery and she was sleepy and lethargic however she was fully awake and making appropriate answers. Patient denies chest pain or dyspnea. DVT prophylaxis with Eliquis Objective - Vital Signs Vital signs: Vital Signs Temp 98.1 F 09/26/18 15:19 Pulse 61 09/26/18 16:00 Resp 16 09/26/18 15:19 BP 128/57 09/26/18 16:00 Pulse Ox 100 09/26/18 15:19 Intake & Output 09/26/18 09/26/18 09/27/18 06:59 18:59 06:59 Intake Total 526 Output Total 500 150 Balance -500 376 Weight 84 kg Intake: IV 526 Output: Urine 500 50 Estimated Blood Loss 100 Other: Voiding Method Indwelling Catheter Indwelling Catheter - Exam GENERAL: The patient is alert and oriented x3, not in any acute distress. Well developed, well nourished. HEENT: Pupils are round and equally reacting to light. EOMI. No scleral icterus. No conjunctival pallor. Normocephalic, atraumatic. No pharyngeal erythema. No thyromegaly. CARDIOVASCULAR: S1 and S2 present. No murmurs, rubs, or gallops. PULMONARY: Chest is clear to auscultation, no wheezing or crackles. ABDOMEN: Soft, nontender, nondistended, normoactive bowel sounds. No palpable organomegaly. MUSCULOSKELETAL: No joint swelling or deformity. -EXTREMITIES: No cyanosis, clubbing, or pedal edema. Right lower extremity is shortened and externally rotated NEUROLOGICAL: Gross neurological examination did not reveal any focal deficits. SKIN: No rashes. - Labs CBC & Chem 7: 09/26/18 07:20 09/26/18 07:20 Labs: Abnormal Lab Results - Last 24 Hours (Table) 09/25/18 09/26/18 09/26/18 Range/Units 20:04 00:16 07:01 WBC 13.4 H (3.8-10.6) k/uL RBC 3.43 L (3.80-5.40) m/uL Hgb 10.1 L (11.4-16.0) gm/dL Hct 31.3 L (34.0-46.0) % Neutrophils # 11.1 H (1.3-7.7) k/uL Sodium (137-145) mmol/L BUN (7-17) mg/dL Creatinine (0.52-1.04) mg/dL Glucose (74-99) mg/dL POC Glucose (mg/dL) 169 H 116 H (75-99) mg/dL 09/26/18 09/26/18 09/26/18 Range/Units 07:20 07:20 11:38 WBC 12.9 H (3.8-10.6) k/uL RBC 3.21 L (3.80-5.40) m/uL Hgb 9.6 L (11.4-16.0) gm/dL Hct 29.0 L (34.0-46.0) % Neutrophils # 9.7 H (1.3-7.7) k/uL Sodium 136 L (137-145) mmol/L BUN 25 H (7-17) mg/dL Creatinine 2.96 H (0.52-1.04) mg/dL Glucose 111 H (74-99) mg/dL POC Glucose (mg/dL) 109 H (75-99) mg/dL 09/26/18 Range/Units 17:22 WBC (3.8-10.6) k/uL RBC (3.80-5.40) m/uL Hgb (11.4-16.0) gm/dL Hct (34.0-46.0) % Neutrophils # (1.3-7.7) k/uL Sodium (137-145) mmol/L BUN (7-17) mg/dL Creatinine (0.52-1.04) mg/dL Glucose (74-99) mg/dL POC Glucose (mg/dL) 110 H (75-99) mg/dL Assessment and Plan Assessment: Right hip fracture End-stage renal disease on hemodialysis History of diabetes mellitus History of GERD History of hyperlipidemia History of essential hypertension Plan: This is a pleasant 72 years old female who presents because of fall, and right hip fracture. Patient is going for surgery tomorrow. The patient on sliding scale. Continue with beta pura. Patient is high-but acceptable risk for this moderate risk procedure. Labs and medication were reviewed.. Continue same treatment. Continue with symptomatic treatment. Resume home medication. Monitor lytes and vitals. DVT and GI prophylaxis. Further recommendations of the clinical course of the patient DVT prophylaxis: Subcutaneous heparin GI Prophylaxis: Pepcid PT/OT: Pending Prognosis is guarded
[2018-09-26 20:26] LABS: Glucose,Whole Blood 126 mg/dL (75-99)
[2018-09-26] MEDS: ceFAZolin IN SWFI 2 GM/20 ML SYRINGE IVP SCH (21:49)
[2018-09-26] MEDS: ACETAMINOPHEN TAB 325 MG TAB PO SCH (21:49)
[2018-09-26] MEDS: ATORVASTATIN 10 MG TAB PO SCH (21:51)
[2018-09-26] MEDS: SENNOSIDES-DOCUSATE SODIUM 1 EACH TAB PO SCH (21:52)
[2018-09-26] MEDS: MONTELUKAST 10 MG TAB PO SCH (21:57)
[2018-09-27] MEDS: ceFAZolin IN SWFI 2 GM/20 ML SYRINGE IVP SCH (04:29)
[2018-09-27] MEDS: LACTATED RINGERS 1,000 ML IV SCH ×2 (07:05→22:42)
[2018-09-27] MEDS: SODIUM CHLORIDE 0.9% 1,000 ML IV SCH ×2 (07:06)
[2018-09-27 07:43] LABS: Glucose,Whole Blood 113 mg/dL (75-99)
[2018-09-27] MEDS: IPRATROPIUM-ALBUTEROL 3 ML NEB INHALATION SCH ×4 (08:33→20:23)
[2018-09-27] MEDS ORDERED: APIXABAN 2.5 MG TABLET PO SCH (09:00)
[2018-09-27] MEDS: INSULIN ASPART 100 UNIT/ML 1 ML 10 ML VIAL SQ SCH ×4 (09:17→22:41)
[2018-09-27 09:26] LABS: Basophils # (A) 0.1 k/uL (0-0.2); Basophils % (A) 0 %; Eosinophils # (A) 0.5 k/uL (0-0.7); Eosinophils % (A) 4 %; HCT 29.6 % (34.0-46.0); HGB 9.5 gm/dL (11.4-16.0); Lymphocytes # (A) 1.8 k/uL (1.0-4.8); Lymphocytes % (A) 13 %; MCH 29.5 pg (25.0-35.0); MCHC 32.1 g/dL (31.0-37.0); Mean Platelet Volume 8.1; Monocytes # (A) 0.7 k/uL (0-1.0); Monocytes % (A) 6 %; Neutrophils # (A) 10.4 k/uL (1.3-7.7); Neutrophils % (A) 76 %; Platelet Count 186 k/uL (150-450); RBC 3.21 m/uL (3.80-5.40); RDW 13.9 % (11.5-15.5); WBC 13.6 k/uL (3.8-10.6)
[2018-09-27] MEDS: LETROZOLE 2.5 MG TAB PO SCH (09:30)
[2018-09-27] MEDS: hydrALAZINE HCL 25 MG TAB PO SCH ×2 (09:30→20:41)
[2018-09-27] MEDS: FERROUS SULFATE 325 MG TAB PO SCH (09:31)
[2018-09-27] MEDS: APIXABAN 2.5 MG TABLET PO SCH ×2 (09:31→20:41)
[2018-09-27] MEDS: FENOFIBRATE 160 MG TAB PO SCH (09:31)
[2018-09-27] MEDS: amLODIPine 10 MG TAB PO SCH (09:31)
[2018-09-27] MEDS: ATENOLOL 50 MG TAB PO SCH (09:31)
[2018-09-27] MEDS: cloNIDine HCL 0.1 MG TAB PO SCH ×2 (09:31→20:41)
[2018-09-27] MEDS: CHOLECALCIFEROL 1,000 UNIT TAB PO SCH (09:31)
[2018-09-27] MEDS: HYDROcodone/APAP 5-325MG 1 EACH TAB PO PRN ×3 (09:31→20:41)
[2018-09-27] MEDS: PANTOPRAZOLE 40 MG TABLET PO SCH (09:31)
[2018-09-27 09:41] LABS: Calcium 8.4 mg/dL (8.4-10.2); Potassium 4.2 mmol/L (3.5-5.1)
--- NOTE | 2018-09-27 10:18 | P.PN ---
Subjective Progress Note Date: 09/27/18 Principal diagnosis: Status post right hip hemiarthroplasty This is a 72 year-old female post right hip hemiarthroplasty. This is post-op day 1. The patient was evaluated at the bedside today. The patient denies nausea, vomiting, abdominal pain, shortness of breath, and chest pain this morning. She states her pain is controlled at this time. The patient has not been up with physical therapy. Objective - Vital Signs Vital signs: Vital Signs Temp 99.0 F 09/27/18 07:11 Pulse 74 09/27/18 07:11 Resp 18 09/27/18 07:11 BP 149/67 09/27/18 07:11 Pulse Ox 99 09/27/18 07:11 Intake & Output 09/26/18 09/27/18 09/27/18 18:59 06:59 18:59 Intake Total 526 1790 Output Total 150 50 Balance 376 1740 Weight 85 kg Intake: IV 526 Intake, IV Titration 1040 Amount Sodium Chloride 0.9% 1, 1040 000 ml @ 65 mls/hr IV . [id number] [facility] Rx#:[id number] Oral 750 Output: Urine 50 50 Estimated Blood Loss 100 Other: Voiding Method Indwelling Catheter Indwelling Catheter Indwelling Catheter - Exam The patient does not appear in acute distress. Alert and orientated x3. Dressing is clean dry and intact. Incision appears fine with no erythema or active drainage. Calf is soft and nontender. Good foot and ankle motion without difficulty. Sensation and circulatory status is intact. - Labs CBC & Chem 7: 09/27/18 07:20 09/27/18 07:20 Labs: Abnormal Lab Results - Last 24 Hours (Table) 09/26/18 09/26/18 09/26/18 Range/Units 11:38 17:22 20:24 WBC (3.8-10.6) k/uL RBC (3.80-5.40) m/uL Hgb (11.4-16.0) gm/dL Hct (34.0-46.0) % Neutrophils # (1.3-7.7) k/uL Sodium (137-145) mmol/L BUN (7-17) mg/dL Creatinine (0.52-1.04) mg/dL POC Glucose (mg/dL) 109 H 110 H 126 H (75-99) mg/dL 09/27/18 09/27/18 09/27/18 Range/Units 06:59 07:20 07:20 WBC 13.6 H (3.8-10.6) k/uL RBC 3.21 L (3.80-5.40) m/uL Hgb 9.5 L (11.4-16.0) gm/dL Hct 29.6 L (34.0-46.0) % Neutrophils # 10.4 H (1.3-7.7) k/uL Sodium 136 L (137-145) mmol/L BUN 24 H (7-17) mg/dL Creatinine 2.77 H (0.52-1.04) mg/dL POC Glucose (mg/dL) 113 H (75-99) mg/dL Assessment and Plan (1) Status post hip hemiarthroplasty Current Visit: Yes Status: Acute Code(s): Z96.649 - PRESENCE OF UNSPECIFIED ARTIFICIAL HIP JOINT SNOMED Code(s): 563590986 (2) Fall Current Visit: Yes Status: Acute Code(s): W19.XXXA - UNSPECIFIED FALL, INITIAL ENCOUNTER SNOMED Code(s): 7030508 (3) Fracture of femoral neck, right Current Visit: Yes Status: Acute Code(s): S72.001A - FRACTURE OF UNSP PART OF NECK OF RIGHT FEMUR, INIT SNOMED Code(s): 3787826 Plan: 1. Continue pain control 2. Anticoagulation per internal medicine, Olivia has been ordered. 3. Start physical therapy and ambulation today 4. Anticipate discharge to skilled rehab, likely Saturday.
--- NOTE | 2018-09-27 10:52 | P.PN ---
Subjective Progress Note Date: 09/27/18 Principal diagnosis: This is a 72-year-old female with ESRD on dialysis Saturday. She fell in her bathroom and had a right hip fracture. She underwent right hemiarthroplasty on 09/26/2018 yesterday. Postop she is doing well but supposedly preop for a short period of time she was in atrial fibrillation transiently. Currently she is feeling fairly well but she is somewhat forgetful and somewhat disoriented. She ate her breakfast but could not remember. Denies any fever chills nausea vomiting diarrhea abdominal pain. No chest pain. No sweating. Objective - Vital Signs Vital signs: Vital Signs Temp 99.0 F 09/27/18 07:11 Pulse 74 09/27/18 07:11 Resp 18 09/27/18 07:11 BP 149/67 09/27/18 07:11 Pulse Ox 99 09/27/18 07:11 Intake & Output 09/26/18 09/27/18 09/27/18 18:59 06:59 18:59 Intake Total 526 1790 Output Total 150 50 Balance 376 1740 Weight 85 kg Intake: IV 526 Intake, IV Titration 1040 Amount Sodium Chloride 0.9% 1, 1040 000 ml @ 65 mls/hr IV . [id number] [facility] Rx#:[id number] Oral 750 Output: Urine 50 50 Estimated Blood Loss 100 Other: Voiding Method Indwelling Catheter Indwelling Catheter Indwelling Catheter On examination awake alert but disoriented. HEENT exam no JVP neck is supple no facial asymmetry Lungs are clear to auscultation good air entry bilaterally Heart sounds are unremarkable no murmur rub gallop. She is in normal sinus rhythm currently. Abdomen soft nontender Extremity exam was no edema surgical scar on the right hip. Neurologically awake alert but disoriented to place and time but cheerful and comfortable. She is moving all her extremities - Labs CBC & Chem 7: 09/27/18 07:20 09/27/18 07:20 Labs: Abnormal Lab Results - Last 24 Hours (Table) 09/26/18 09/26/18 09/26/18 Range/Units 11:38 17:22 20:24 WBC (3.8-10.6) k/uL RBC (3.80-5.40) m/uL Hgb (11.4-16.0) gm/dL Hct (34.0-46.0) % Neutrophils # (1.3-7.7) k/uL Sodium (137-145) mmol/L BUN (7-17) mg/dL Creatinine (0.52-1.04) mg/dL POC Glucose (mg/dL) 109 H 110 H 126 H (75-99) mg/dL 09/27/18 09/27/18 09/27/18 Range/Units 06:59 07:20 07:20 WBC 13.6 H (3.8-10.6) k/uL RBC 3.21 L (3.80-5.40) m/uL Hgb 9.5 L (11.4-16.0) gm/dL Hct 29.6 L (34.0-46.0) % Neutrophils # 10.4 H (1.3-7.7) k/uL Sodium 136 L (137-145) mmol/L BUN 24 H (7-17) mg/dL Creatinine 2.77 H (0.52-1.04) mg/dL POC Glucose (mg/dL) 113 H (75-99) mg/dL Assessment and Plan Plan: Impression 1. ESRD on dialysis Saturday stable. 2. Status post fall and fracture of right femur, status post right hemiarthroplasty 09/26/2018. 3. Transient atrial fibrillation preop currently in normal sinus rhythm. No troponins were done. 4. Anemia with hemoglobin of 9.5, went down from 11.2 and admission likely from surgery and fracture 5. Blood pressure at target Recommendation 1. increase Aranesp 60 g every week. 2. Check iron saturation. 3. Next hemodialysis will be Saturday. 4. Hep-Lock IV fluid
[2018-09-27 12:09] LABS: Glucose,Whole Blood 127 mg/dL (75-99)
--- NOTE | 2018-09-27 16:51 | P.PN ---
Subjective This is a pleasant 72 years old female who has history of end-stage renal disease on hemodialysis, hyperlipidemia, hypertension, GERD, diabetes mellitus, she presents because of fall and right hip fracture, patient could not tell how much insulin she was taking, however we put her on sliding scale. Patient has been evaluated by nephrology and orthopedic team. Patient is planned to go for surgery tomorrow. Patient thinks she took her aspirin today, so Aspirin is on hold , 09/25/2018 Patient surgeon Monroe postponed until tomorrow. She is given for hemodialysis today and tomorrow. Patient is upset because she couldn't get the surgery today. She has some nausea and has been treated by the staff. 09/26/2018 patient underwent right hip hemiarthroplasty today for her right hip fracture. Patient is seen and evaluated after the surgery and she was sleepy and lethargic however she was fully awake and making appropriate answers. Patient denies chest pain or dyspnea. DVT prophylaxis with Eliquis 09/27/2018 She is postop day #1 for right hip hemiarthroplasty today for her right hip fracture. Patient was lying in bed comfortable not in distress. No chest pain or dyspnea. Vitas is stable. She had mild leukocytosis with looks like reactive to the surgery as well as for her urinary tract infection. Currently she is on levofloxacin. Her pain was controlled. Creatinine 2.7 and nephrology R following the case. Objective - Vital Signs Vital signs: Vital Signs Temp 98.0 F 09/27/18 14:31 Pulse 75 09/27/18 14:31 Resp 20 09/27/18 14:31 BP 134/68 09/27/18 14:31 Pulse Ox 98 09/27/18 14:31 Intake & Output 09/26/18 09/27/18 09/27/18 18:59 06:59 18:59 Intake Total 526 1790 420 Output Total 150 50 Balance 376 1740 420 Weight 85 kg Intake: IV 526 Intake, IV Titration 1040 Amount Sodium Chloride 0.9% 1, 1040 000 ml @ 65 mls/hr IV . [id number] Rx#:[id number] Oral 750 420 Output: Urine 50 50 Estimated Blood Loss 100 Other: Voiding Method Indwelling Catheter Indwelling Catheter Indwelling Catheter # Voids 1 - Exam GENERAL: The patient is alert and oriented x3, not in any acute distress. Well developed, well nourished. HEENT: Pupils are round and equally reacting to light. EOMI. No scleral icterus. No conjunctival pallor. Normocephalic, atraumatic. No pharyngeal erythema. No thyromegaly. CARDIOVASCULAR: S1 and S2 present. No murmurs, rubs, or gallops. PULMONARY: Chest is clear to auscultation, no wheezing or crackles. ABDOMEN: Soft, nontender, nondistended, normoactive bowel sounds. No palpable organomegaly. MUSCULOSKELETAL: No joint swelling or deformity. -EXTREMITIES: No cyanosis, clubbing, or pedal edema. Right lower extremity is shortened and externally rotated NEUROLOGICAL: Gross neurological examination did not reveal any focal deficits. SKIN: No rashes. - Labs CBC & Chem 7: 09/27/18 07:20 09/27/18 07:20 Labs: Abnormal Lab Results - Last 24 Hours (Table) 09/26/18 09/26/18 09/27/18 Range/Units 17:22 20:24 06:59 WBC (3.8-10.6) k/uL RBC (3.80-5.40) m/uL Hgb (11.4-16.0) gm/dL Hct (34.0-46.0) % Neutrophils # (1.3-7.7) k/uL Sodium (137-145) mmol/L BUN (7-17) mg/dL Creatinine (0.52-1.04) mg/dL POC Glucose (mg/dL) 110 H 126 H 113 H (75-99) mg/dL 09/27/18 09/27/18 09/27/18 Range/Units 07:20 07:20 11:40 WBC 13.6 H (3.8-10.6) k/uL RBC 3.21 L (3.80-5.40) m/uL Hgb 9.5 L (11.4-16.0) gm/dL Hct 29.6 L (34.0-46.0) % Neutrophils # 10.4 H (1.3-7.7) k/uL Sodium 136 L (137-145) mmol/L BUN 24 H (7-17) mg/dL Creatinine 2.77 H (0.52-1.04) mg/dL POC Glucose (mg/dL) 127 H (75-99) mg/dL Assessment and Plan Assessment: Right hip fracture End-stage renal disease on hemodialysis History of diabetes mellitus History of GERD History of hyperlipidemia History of essential hypertension Plan: This is a pleasant 72 years old female who presents because of fall, and right hip fracture. Patient is going for surgery tomorrow. The patient on sliding scale. Continue with beta pura. Patient is high-but acceptable risk for this moderate risk procedure. Labs and medication were reviewed.. Continue same treatment. Continue with symptomatic treatment. Resume home medication. Monitor lytes and vitals. DVT and GI prophylaxis. Further recommendations of the clinical course of the patient DVT prophylaxis: Subcutaneous heparin GI Prophylaxis: Pepcid PT/OT: Pending Prognosis is guarded
[2018-09-27 17:09] LABS: Glucose,Whole Blood 149 mg/dL (75-99)
[2018-09-27 19:22] LABS: Glucose,Whole Blood 156 mg/dL (75-99)
[2018-09-27] MEDS: MONTELUKAST 10 MG TAB PO SCH (20:41)
[2018-09-27] MEDS: ATORVASTATIN 10 MG TAB PO SCH (20:41)
[2018-09-27] MEDS: ACETAMINOPHEN TAB 325 MG TAB PO SCH (20:41)
[2018-09-27] MEDS: SENNOSIDES-DOCUSATE SODIUM 1 EACH TAB PO SCH (20:41)
[2018-09-28] MEDS: SODIUM CHLORIDE 0.9% 1,000 ML IV SCH (05:12)
[2018-09-28 07:21] LABS: Glucose,Whole Blood 113 mg/dL (75-99)
[2018-09-28] MEDS: LEVOFLOXACIN 250MG-D5W PMX 250 MG in DEXTROSE/WATER 1 50ML.BAG IVPB SCH (07:39)
[2018-09-28] MEDS: FENOFIBRATE 160 MG TAB PO SCH (07:44)
[2018-09-28] MEDS: FERROUS SULFATE 325 MG TAB PO SCH (07:44)
[2018-09-28] MEDS: PANTOPRAZOLE 40 MG TABLET PO SCH (07:44)
[2018-09-28] MEDS: cloNIDine HCL 0.1 MG TAB PO SCH ×2 (07:44→21:06)
[2018-09-28] MEDS: amLODIPine 10 MG TAB PO SCH (07:44)
[2018-09-28] MEDS: ATENOLOL 50 MG TAB PO SCH (07:44)
[2018-09-28] MEDS: APIXABAN 2.5 MG TABLET PO SCH ×2 (07:44→21:06)
[2018-09-28] MEDS: CHOLECALCIFEROL 1,000 UNIT TAB PO SCH (07:44)
[2018-09-28] MEDS: LETROZOLE 2.5 MG TAB PO SCH (07:44)
[2018-09-28] MEDS: hydrALAZINE HCL 25 MG TAB PO SCH ×2 (07:44→21:06)
[2018-09-28] MEDS: INSULIN ASPART 100 UNIT/ML 1 ML 10 ML VIAL SQ SCH ×4 (07:45→23:01)
[2018-09-28] MEDS: HYDROcodone/APAP 5-325MG 1 EACH TAB PO PRN ×3 (07:45→19:17)
[2018-09-28] MEDS: IPRATROPIUM-ALBUTEROL 3 ML NEB INHALATION SCH ×4 (07:52→20:46)
--- NOTE | 2018-09-28 10:21 | P.PN ---
Subjective Progress Note Date: 09/28/18 Principal diagnosis: This is a 72-year-old female with ESRD on dialysis Saturday. She fell in her bathroom and had a right hip fracture. She underwent right hemiarthroplasty on 09/26/2018 day before yesterday. Postop she is doing well but supposedly preop for a short period of time she was in atrial fibrillation transiently. Currently she is feeling fairly well, and is improved from yesterday when she was somewhat forgetful. He is eating very well denies any fever chills cough shortness of breath nausea vomiting diarrhea abdominal pain. Her hip surgery area is painful but tolerable. Objective - Vital Signs Vital signs: Vital Signs Temp 99.2 F 09/28/18 06:57 Pulse 74 09/28/18 06:57 Resp 16 09/28/18 06:57 BP 124/49 09/28/18 06:57 Pulse Ox 94 L 09/28/18 06:57 Intake & Output 09/27/18 09/28/18 09/28/18 18:59 06:59 18:59 Intake Total 420 Balance 420 Intake: Oral 420 Other: Voiding Method Indwelling Catheter Indwelling Catheter Indwelling Catheter # Voids 1 On examination is awake alert oriented 3. HEENT exam no JVP neck is supple no facial asymmetry Lungs are clear to auscultation good air entry bilaterally Heart sounds are unremarkable for any murmur rub gallop Abdomen is soft nontender. Extremity exam was no edema Neurologically awake alert oriented. Surgical site is clean - Labs CBC & Chem 7: 09/27/18 07:20 09/27/18 07:20 Labs: Abnormal Lab Results - Last 24 Hours (Table) 09/27/18 09/27/18 09/27/18 Range/Units 11:40 16:58 19:20 POC Glucose (mg/dL) 127 H 149 H 156 H (75-99) mg/dL 09/28/18 Range/Units 07:20 POC Glucose (mg/dL) 113 H (75-99) mg/dL Assessment and Plan Plan: Impression 1. ESRD on dialysis Saturday stable. 2. Status post fall and fracture of right femur, status post right hemiarthroplasty 09/26/2018. 3. Transient atrial fibrillation preop currently in normal sinus rhythm. No troponins were done. 4. Anemia with hemoglobin of 9.5, went down from 11.2 and admission likely from surgery and fracture 5. Blood pressure at target, on multiple medications Recommendation 1. Continue Aranesp 60 g every week. 2. Check iron saturation. 3. Next hemodialysis will be Saturday, tomorrow. She'll be dialyzed for 3 Hours and will take off 2 L. 4. Hep-Lock IV fluid
[2018-09-28 10:56] LABS: Calcium 8.4 mg/dL (8.4-10.2); Potassium 3.8 mmol/L (3.5-5.1)
[2018-09-28 11:27] LABS: Glucose,Whole Blood 215 mg/dL (75-99)
--- NOTE | 2018-09-28 12:52 | P.PN ---
Subjective Progress Note Date: 09/28/18 Principal diagnosis: Status post right hip hemiarthroplasty This is a 72 year-old female post right hip hemiarthroplasty. This is post-op day 2. The patient was evaluated at the bedside today. The patient denies nausea, vomiting, abdominal pain, shortness of breath, and chest pain this morning. She states her pain is controlled at this time. The patient has been up with physical therapy but only to the side of the bed per the patient. Objective - Vital Signs Vital signs: Vital Signs Temp 99.2 F 09/28/18 06:57 Pulse 74 09/28/18 06:57 Resp 16 09/28/18 06:57 BP 124/49 09/28/18 06:57 Pulse Ox 94 L 09/28/18 06:57 Intake & Output 09/27/18 09/28/18 09/28/18 18:59 06:59 18:59 Intake Total 420 Balance 420 Intake: Oral 420 Other: Voiding Method Indwelling Catheter Indwelling Catheter Indwelling Catheter # Voids 1 - Exam The patient does not appear in acute distress. Alert and orientated x3. Dressing is clean dry and intact. Incision appears fine with no erythema or active drainage. Calf is soft and nontender. Good foot and ankle motion without difficulty. Sensation and circulatory status is intact. - Labs CBC & Chem 7: 09/27/18 07:20 09/28/18 10:01 Labs: Abnormal Lab Results - Last 24 Hours (Table) 09/27/18 09/27/18 09/28/18 Range/Units 16:58 19:20 07:20 Sodium (137-145) mmol/L BUN (7-17) mg/dL Creatinine (0.52-1.04) mg/dL Glucose (74-99) mg/dL POC Glucose (mg/dL) 149 H 156 H 113 H (75-99) mg/dL 09/28/18 09/28/18 Range/Units 10:01 11:16 Sodium 135 L (137-145) mmol/L BUN 35 H (7-17) mg/dL Creatinine 3.67 H (0.52-1.04) mg/dL Glucose 183 H (74-99) mg/dL POC Glucose (mg/dL) 215 H (75-99) mg/dL Assessment and Plan (1) Status post hip hemiarthroplasty Current Visit: Yes Status: Acute Code(s): Z96.649 - PRESENCE OF UNSPECIFIED ARTIFICIAL HIP JOINT SNOMED Code(s): 539900426 (2) Fall Current Visit: Yes Status: Acute Code(s): W19.XXXA - UNSPECIFIED FALL, INITIAL ENCOUNTER SNOMED Code(s): 8930917 (3) Fracture of femoral neck, right Current Visit: Yes Status: Acute Code(s): S72.001A - FRACTURE OF UNSP PART OF NECK OF RIGHT FEMUR, INIT SNOMED Code(s): 3976373 Plan: 1. Continue pain control 2. Anticoagulation per internal medicine, Lelais has been ordered. 3. Continue physical therapy and ambulation today 4. Anticipate discharge to skilled rehab, likely Saturday.
[2018-09-28 17:17] LABS: Glucose,Whole Blood 173 mg/dL (75-99)
[2018-09-28 19:39] LABS: Glucose,Whole Blood 157 mg/dL (75-99)
[2018-09-28] MEDS: ACETAMINOPHEN TAB 325 MG TAB PO SCH (21:06)
[2018-09-28] MEDS: MONTELUKAST 10 MG TAB PO SCH (21:06)
[2018-09-28] MEDS: ATORVASTATIN 10 MG TAB PO SCH (21:06)
[2018-09-28] MEDS: SENNOSIDES-DOCUSATE SODIUM 1 EACH TAB PO SCH (21:06)
--- NOTE | 2018-09-28 22:15 | P.PN ---
Subjective This is a pleasant 72 years old female who has history of end-stage renal disease on hemodialysis, hyperlipidemia, hypertension, GERD, diabetes mellitus, she presents because of fall and right hip fracture, patient could not tell how much insulin she was taking, however we put her on sliding scale. Patient has been evaluated by nephrology and orthopedic team. Patient is planned to go for surgery tomorrow. Patient thinks she took her aspirin today, so Aspirin is on hold , 09/25/2018 Patient surgeon Monroe postponed until tomorrow. She is given for hemodialysis today and tomorrow. Patient is upset because she couldn't get the surgery today. She has some nausea and has been treated by the staff. 09/26/2018 patient underwent right hip hemiarthroplasty today for her right hip fracture. Patient is seen and evaluated after the surgery and she was sleepy and lethargic however she was fully awake and making appropriate answers. Patient denies chest pain or dyspnea. DVT prophylaxis with Eliquis 09/27/2018 She is postop day #1 for right hip hemiarthroplasty today for her right hip fracture. Patient was lying in bed comfortable not in distress. No chest pain or dyspnea. Vitas is stable. She had mild leukocytosis with looks like reactive to the surgery as well as for her urinary tract infection. Currently she is on levofloxacin. Her pain was controlled. Creatinine 2.7 and nephrology R following the case. 09/28/2018 pt is postop day #2 for right hip hemiarthroplasty today for her right hip fracture. clinically looks stable , she has some malaise. she is on levaquin with renal dosing for her UTI. UC is still in process, pt with leukocytosis , nephrology are following the case for her ESRD on HD. she is on eluquis for DVT prophylaxis, renal dosing which might also help for her a fib. Hb is slight drop which is expected after surgery Objective - Vital Signs Vital signs: Vital Signs Temp 98.3 F 09/28/18 13:38 Pulse 60 09/28/18 13:38 Resp 16 09/28/18 06:57 BP 97/58 09/28/18 13:38 Pulse Ox 94 L 09/28/18 13:38 Intake & Output 09/28/18 09/28/18 09/29/18 06:59 18:59 06:59 Intake Total 650 Output Total 600 Balance 50 Intake: Intake, IV Titration 50 Amount Levofloxacin 250Mg-D5w 50 Pmx 250 mg In Dextrose/ Water 1 50ml.bag @ 50 mls /hr IVPB Q48H [facility] Rx#: [id number] Oral 600 Output: Urine 600 Other: Voiding Method Indwelling Catheter Indwelling Catheter - Exam GENERAL: The patient is alert and oriented x3, not in any acute distress. Well developed, well nourished. HEENT: Pupils are round and equally reacting to light. EOMI. No scleral icterus. No conjunctival pallor. Normocephalic, atraumatic. No pharyngeal erythema. No thyromegaly. CARDIOVASCULAR: S1 and S2 present. No murmurs, rubs, or gallops. PULMONARY: Chest is clear to auscultation, no wheezing or crackles. ABDOMEN: Soft, nontender, nondistended, normoactive bowel sounds. No palpable organomegaly. MUSCULOSKELETAL: No joint swelling or deformity. -EXTREMITIES: No cyanosis, clubbing, or pedal edema. Right lower extremity is shortened and externally rotated NEUROLOGICAL: Gross neurological examination did not reveal any focal deficits. SKIN: No rashes. - Labs CBC & Chem 7: 09/27/18 07:20 09/28/18 10:01 Labs: Abnormal Lab Results - Last 24 Hours (Table) 09/28/18 09/28/18 09/28/18 Range/Units 07:20 10:01 11:16 Sodium 135 L (137-145) mmol/L BUN 35 H (7-17) mg/dL Creatinine 3.67 H (0.52-1.04) mg/dL Glucose 183 H (74-99) mg/dL POC Glucose (mg/dL) 113 H 215 H (75-99) mg/dL 09/28/18 09/28/18 Range/Units 17:16 19:37 Sodium (137-145) mmol/L BUN (7-17) mg/dL Creatinine (0.52-1.04) mg/dL Glucose (74-99) mg/dL POC Glucose (mg/dL) 173 H 157 H (75-99) mg/dL Assessment and Plan Assessment: Right hip fracture UTI with UC is pending acute blood loss anemia after surgery , expected . End-stage renal disease on hemodialysis History of diabetes mellitus History of GERD History of hyperlipidemia History of essential hypertension Plan: This is a pleasant 72 years old female who presents because of fall, and right hip fracture. Patient is going for surgery tomorrow. The patient on sliding scale. Continue with beta pura. Patient is high-but acceptable risk for this moderate risk procedure. Labs and medication were reviewed.. Continue same treatment. Continue with symptomatic treatment. Resume home medication. Monitor lytes and vitals. DVT and GI prophylaxis. Further recommendations of the clinical course of the patient DVT prophylaxis: Subcutaneous heparin GI Prophylaxis: Pepcid PT/OT: Pending Prognosis is guarded
[2018-09-28] MEDS: LACTATED RINGERS 1,000 ML IV SCH (23:02)
[2018-09-29] MEDS: HYDROcodone/APAP 5-325MG 1 EACH TAB PO PRN ×3 (01:17→17:12)
[2018-09-29 07:30] LABS: Glucose,Whole Blood 103 mg/dL (75-99)
[2018-09-29] MEDS: INSULIN ASPART 100 UNIT/ML 1 ML 10 ML VIAL SQ SCH ×4 (07:51→22:04)
[2018-09-29] MEDS: IPRATROPIUM-ALBUTEROL 3 ML NEB INHALATION SCH ×4 (07:54→20:55)
[2018-09-29] MEDS: hydrALAZINE HCL 25 MG TAB PO SCH ×2 (08:01→22:04)
[2018-09-29] MEDS: cloNIDine HCL 0.1 MG TAB PO SCH ×2 (08:01→22:03)
[2018-09-29] MEDS: amLODIPine 10 MG TAB PO SCH (08:01)
[2018-09-29] MEDS: ATENOLOL 50 MG TAB PO SCH (08:05)
--- NOTE | 2018-09-29 09:07 | P.DS ---
Providers Date of admission: 09/24/18 03:50 Expected date of discharge: 09/29/18 Attending physician: Juma Sumner Consults: 09/24/18 03:45 Consult Physician Routine Consulting Provider: Dwain Tobar Consult Reason/Comments: Cardiology clearance. Do you want consulting provider notified?: Yes Consult Physician Routine Consulting Provider: Michelle Bridges Consult Reason/Comments: Surgical clearance. Dialysis patient. Do you want consulting provider notified?: Yes 09/24/18 08:46 Consult Physician Routine Consulting Provider: Duarte Mendez Consult Reason/Comments: Surgical clearance and medical management Do you want consulting provider notified?: Yes 09/26/18 10:56 Consult Physician Routine Consulting Provider: Duarte Mendez Consult Reason/Comments: postop anticoagulation Do you want consulting provider notified?: Yes Primary care physician: Herbert Reilly - Discharge Diagnosis(es) (1) Fracture of femoral neck, right Current Visit: Yes Status: Acute (2) Fall Current Visit: Yes Status: Acute (3) Chronic renal disease Current Visit: No Status: Acute Hospital Course: This is a 72-year-old female who sustained a fracture of the right hip after a fall on 09/23/2018. The patient was transferred from [facility] to [facility] for further management. After discussion and consideration patient elects to proceed with right hip hemiarthroplasty. The patient is seen preoperatively by Dr. Sumner and medically cleared for surgery by internal medicine, cardiology and nephrology. Patient's past medical history significant for diabetes mellitus with neuropathy and retinopathy, GERD, hyperlipidemia, hypertension and history of breast cancer, and renal disease. Patient is admitted to [facility] on 09/24/2018 and right hip hemiarthroplasty is performed on 09/26/2018. The procedures performed without complication or sequelae. The patient is doing well postoperatively. Labs and vital signs are stable on day of discharge. Patient has been treated for a UTI during this admission with Levaquin. On day of discharge the patient's hip incision is healing well. There is minimal erythema. There is no drainage noted at this time. There is minimal soft tissue swelling to the hip and thigh. Patient has full foot and ankle motion without difficulty or pain. Patient denies any right knee pain today. There is no tenderness to palpation over the right knee. There is no effusion, erythema or ecchymosis of the right knee. Neurovascular status to the right lower extremity is intact. Patient is discharged to rehab in good condition. Please see med rec for accurate list of home medications. Patient Condition at Discharge: Poor Plan - Discharge Summary Discharge Rx Participant: No New Discharge Prescriptions: New Apixaban [Eliquis] 2.5 mg PO BID #30 tab HYDROcodone/APAP 5-325MG [[place] 5-325] 1 - 2 tab PO Q4-6H PRN #84 tab PRN Reason: Pain Sennosides [Senokot] 1 tab PO BID #60 tablet No Action Fenofibrate [Lofibra] 160 mg PO DAILY Pantoprazole Sodium [Protonix] 40 mg PO DAILY Calcitriol [Rocaltrol] 0.25 mcg PO TH Letrozole [Femara] 2.5 mg PO DAILY Aspirin 81 mg PO DAILY amLODIPine [Norvasc] 10 mg PO DAILY #30 tab cloNIDine HCL [Catapres] 0.1 mg PO BID #60 tab Sodium Bicarbonate Tab 1,300 mg PO BID #120 tab Acetaminophen Tab [Tylenol] 325 mg PO HS Cholecalciferol (Vitamin D3) [Vitamin D3] 2,000 unit PO DAILY Ferrous Sulfate [Iron (65 MG Elemental)] 325 mg PO DAILY Multivit-Min/FA/Lycopen/Lutein [Centrum Silver Tablet] 1 tab PO DAILY Ondansetron HCl [Zofran] 8 mg PO DAILY Montelukast [Singulair] 10 mg PO HS tab Insuln Asp Prt/Insulin Aspart [NovoLOG MIX 70-30 VIAL] See Protocol SQ AC-BID Furosemide [Lasix] 80 mg PO BID Atorvastatin [Lipitor] 10 mg PO HS Atenolol [Tenormin] 50 mg PO DAILY Insulin NPL/Insulin Lispro [humaLOG MIX 75-25 VIAL] 30 unit SQ HS Discharge Medication List Fenofibrate [Lofibra] 160 mg PO DAILY 02/05/14 [History] Pantoprazole Sodium [Protonix] 40 mg PO DAILY 02/05/14 [History] Calcitriol [Rocaltrol] 0.25 mcg PO TH 10/16/17 [History] Aspirin 81 mg PO DAILY 07/31/18 [History] Letrozole [Femara] 2.5 mg PO DAILY 07/31/18 [History] Sodium Bicarbonate Tab 1,300 mg PO BID #120 tab 08/04/18 [Rx] amLODIPine [Norvasc] 10 mg PO DAILY #30 tab 08/04/18 [Rx] cloNIDine HCL [Catapres] 0.1 mg PO BID #60 tab 08/04/18 [Rx] Acetaminophen Tab [Tylenol] 325 mg PO HS 08/13/18 [History] Cholecalciferol (Vitamin D3) [Vitamin D3] 2,000 unit PO DAILY 08/13/18 [History] Ferrous Sulfate [Iron (65 MG Elemental)] 325 mg PO DAILY 08/13/18 [History] Multivit-Min/FA/Lycopen/Lutein [Centrum Silver Tablet] 1 tab PO DAILY 08/13/18 [ History] Ondansetron HCl [Zofran] 8 mg PO DAILY 08/13/18 [History] Montelukast [Singulair] 10 mg PO HS tab 08/20/18 [Rx] Atenolol [Tenormin] 50 mg PO DAILY 09/24/18 [History] Atorvastatin [Lipitor] 10 mg PO HS 09/24/18 [History] Furosemide [Lasix] 80 mg PO BID 09/24/18 [History] Insulin NPL/Insulin Lispro [humaLOG MIX 75-25 VIAL] 30 unit SQ HS 09/24/18 [ History] Insuln Asp Prt/Insulin Aspart [NovoLOG MIX 70-30 VIAL] See Protocol SQ AC-BID [History] Apixaban [Eliquis] 2.5 mg PO BID #30 tab 09/29/18 [Rx] HYDROcodone/APAP 5-325MG [[place] 5-325] 1 - 2 tab PO Q4-6H PRN #84 tab 09/29/18 [ Rx] Sennosides [Senokot] 1 tab PO BID #60 tablet 09/29/18 [Rx] Follow up Appointment(s)/Referral(s): Herbert Reilly MD [Primary Care Provider] - 1-2 days Juma Sumner DO [Doctor of Osteopathic Medicine] - 2 Weeks Activity/Diet/Wound Care/Special Instructions: Weightbearing as tolerated with walker. Leave dressing intact. Dressing may be removed by home care nurse in 10 days. May shower with dressing on. Continue hip precations with abductor pillow for 6 weeks. Follow-up with [facility] in 2 weeks, please call with any questions or concerns [phone]. Discharge Disposition: TRANSFER TO SNF/ECF
[2018-09-29] MEDS: APIXABAN 2.5 MG TABLET PO SCH ×2 (09:09→22:04)
[2018-09-29] MEDS: CHOLECALCIFEROL 1,000 UNIT TAB PO SCH (09:09)
[2018-09-29] MEDS: FENOFIBRATE 160 MG TAB PO SCH (09:09)
[2018-09-29] MEDS: FERROUS SULFATE 325 MG TAB PO SCH (09:09)
[2018-09-29] MEDS: PANTOPRAZOLE 40 MG TABLET PO SCH (09:09)
[2018-09-29 09:10] LABS: Basophils # (A) 0.1 k/uL (0-0.2); Basophils % (A) 0 %; Eosinophils # (A) 0.8 k/uL (0-0.7); Eosinophils % (A) 5 %; HCT 29.4 % (34.0-46.0); HGB 9.3 gm/dL (11.4-16.0); Lymphocytes % (A) 14 %; MCHC 31.5 g/dL (31.0-37.0); Mean Platelet Volume 7.8; Monocytes # (A) 0.6 k/uL (0-1.0); Monocytes % (A) 4 %; Neutrophils # (A) 10.4 k/uL (1.3-7.7); Neutrophils % (A) 74 %; Platelet Count 243 k/uL (150-450); RDW 13.9 % (11.5-15.5); WBC 14.1 k/uL (3.8-10.6)
[2018-09-29] MEDS: LETROZOLE 2.5 MG TAB PO SCH (09:10)
[2018-09-29 09:23] LABS: Calcium 8.5 mg/dL (8.4-10.2); Potassium 3.7 mmol/L (3.5-5.1)
[2018-09-29 12:03] LABS: Glucose,Whole Blood 151 mg/dL (75-99)
--- NOTE | 2018-09-29 12:15 | P.PN ---
Subjective 72 years old female who has history of end-stage renal disease on hemodialysis, hyperlipidemia, hypertension, GERD, diabetes mellitus, she presents because of fall and right hip fracture, patient could not tell how much insulin she was taking, however we put her on sliding scale. Patient has been evaluated by nephrology and orthopedic team. Patient is planned to go for surgery tomorrow. Patient thinks she took her aspirin today, so Aspirin is on hold , 09/25/2018 Patient surgeon Monroe postponed until tomorrow. She is given for hemodialysis today and tomorrow. Patient is upset because she couldn't get the surgery today. She has some nausea and has been treated by the staff. 09/26/2018 patient underwent right hip hemiarthroplasty today for her right hip fracture. Patient is seen and evaluated after the surgery and she was sleepy and lethargic however she was fully awake and making appropriate answers. Patient denies chest pain or dyspnea. DVT prophylaxis with Eliquis 09/27/2018 She is postop day #1 for right hip hemiarthroplasty today for her right hip fracture. Patient was lying in bed comfortable not in distress. No chest pain or dyspnea. Vitas is stable. She had mild leukocytosis with looks like reactive to the surgery as well as for her urinary tract infection. Currently she is on levofloxacin. Her pain was controlled. Creatinine 2.7 and nephrology R following the case. 09/28/2018 pt is postop day #2 for right hip hemiarthroplasty today for her right hip fracture. clinically looks stable , she has some malaise. she is on levaquin with renal dosing for her UTI. UC is still in process, pt with leukocytosis , nephrology are following the case for her ESRD on HD. she is on eluquis for DVT prophylaxis, renal dosing which might also help for her a fib. Hb is slight drop which is expected after surgery 09/29/2018 Patient is complaining of pain in the right hip area patient blood pressure is low normal and do not believe she'll require clonidine clonidine will be discontinued which was started during this last aspiration patient is on low- dose twice a day of clonidine at because of which I believe this can be discontinued if needed her atenolol can be increased. Patient will undergo hemodialysis after which probably she can be discharged. Discharge medications were reviewed and appropriate reconciliation was done. Constitutional: Denied any fatigue denied any fever. Cardio vascular: denied any chest pain, palpitations Gastrointestinal denied any nausea vomiting Pulmonary: Denied any shortness of breath cough Neurologic denied any new focal deficits All inpatient medications were reviewed and appropriate changes in these medications as dictated in the interval history and assessment and plan. Objective - Vital Signs Vital signs: Vital Signs Temp 98.5 F 09/29/18 07:00 Pulse 68 09/29/18 07:00 Resp 16 09/29/18 07:00 BP 107/45 09/29/18 07:00 Pulse Ox 96 09/29/18 07:00 Intake & Output 09/28/18 09/29/18 09/29/18 18:59 06:59 18:59 Intake Total 650 Output Total 600 Balance 50 Intake: Intake, IV Titration 50 Amount Levofloxacin 250Mg-D5w 50 Pmx 250 mg In Dextrose/ Water 1 50ml.bag @ 50 mls /hr IVPB Q48H [facility] Rx#: [id number] Oral 600 Output: Urine 600 Other: Voiding Method Indwelling Catheter Indwelling Catheter Indwelling Catheter - Exam GENERAL: The patient is alert and oriented x3, not in any acute distress. Obese HEENT: Pupils are round and equally reacting to light. EOMI. No scleral icterus. No conjunctival pallor. Normocephalic, atraumatic. No pharyngeal erythema. No thyromegaly. CARDIOVASCULAR: S1 and S2 present. No murmurs, rubs, or gallops. PULMONARY: Chest is clear to auscultation, no wheezing or crackles. ABDOMEN: Soft, nontender, nondistended, normoactive bowel sounds. No palpable organomegaly. MUSCULOSKELETAL: No joint swelling or deformity. -EXTREMITIES: No cyanosis, clubbing, or pedal edema. Right lower extremity is shortened and externally rotated NEUROLOGICAL: Gross neurological examination did not reveal any focal deficits. SKIN: No rashes. - Labs CBC & Chem 7: 09/29/18 08:30 09/29/18 08:30 Labs: Abnormal Lab Results - Last 24 Hours (Table) 09/28/18 09/28/18 09/29/18 Range/Units 17:16 19:37 07:18 WBC (3.8-10.6) k/uL RBC (3.80-5.40) m/uL Hgb (11.4-16.0) gm/dL Hct (34.0-46.0) % Neutrophils # (1.3-7.7) k/uL Eosinophils # (0-0.7) k/uL Sodium (137-145) mmol/L BUN (7-17) mg/dL Creatinine (0.52-1.04) mg/dL Glucose (74-99) mg/dL POC Glucose (mg/dL) 173 H 157 H 103 H (75-99) mg/dL 09/29/18 09/29/18 09/29/18 Range/Units 08:30 08:30 11:52 WBC 14.1 H (3.8-10.6) k/uL RBC 3.20 L (3.80-5.40) m/uL Hgb 9.3 L (11.4-16.0) gm/dL Hct 29.4 L (34.0-46.0) % Neutrophils # 10.4 H (1.3-7.7) k/uL Eosinophils # 0.8 H (0-0.7) k/uL Sodium 136 L (137-145) mmol/L BUN 44 H (7-17) mg/dL Creatinine 4.19 H (0.52-1.04) mg/dL Glucose 130 H (74-99) mg/dL POC Glucose (mg/dL) 151 H (75-99) mg/dL Assessment and Plan Plan: Assessment and Plan Assessment: Right hip fracture UTI with UC is pending acute blood loss anemia after surgery , expected . End-stage renal disease on hemodialysis History of diabetes mellitus History of GERD History of hyperlipidemia History of essential hypertension Plan: This is a pleasant 72 years old female who presents because of fall, and right hip fracture. Patient is going for surgery tomorrow. The patient on sliding scale. Continue with beta pura. Patient is high-but acceptable risk for this moderate risk procedure. Labs and medication were reviewed.. Continue same treatment. Continue with symptomatic treatment. Resume home medication. Monitor lytes and vitals.
[2018-09-29 16:49] LABS: Glucose,Whole Blood 156 mg/dL (75-99)
--- NOTE | 2018-09-29 17:55 | PN ---
PROGRESS NOTE Patient is seen for followup for end-stage renal disease. She was admitted with a right hip fracture and patient is status post surgery. She states she feels fairly well with no significant complaints. The patient had right hip hemiarthroplasty. Today is postop day #3. She is scheduled for hemodialysis today after which there are plans for discharge to rehab. PHYSICAL EXAMINATION: This morning blood pressure was 107/45, heart rate of 75 per minute, patient is afebrile. Examination of the heart, S1, S2. Examination of the lungs, bilateral breath sounds are heard. Abdomen is soft, nontender. Examination of lower extremities shows no significant edema. [employer]IST exam is grossly intact. LAB: Sodium 136, potassium 3.7, BUN 44, serum creatinine 4.1, hemoglobin 9.3 g/dL. ASSESSMENT: 1. End-stage renal disease, on hemodialysis on a Saturday, Saturday, Saturday schedule. Patient is scheduled for hemodialysis today. 2. Right hip fracture, status post right hip hemiarthroplasty. 3. Hypertension, controlled. 4. Chronic kidney disease mineral bone disorder, maintained on Rocaltrol. 5. Anemia of chronic disease, currently on Aranesp. PLAN: Hemodialysis today following which patient could be discharged from nephrology standpoint. MMODL / IJN: [id number] /
[2018-09-29 19:11] LABS: Hepatitis B Surface AB- Quant 3.5 mIU/mL
[2018-09-29 19:41] LABS: Glucose,Whole Blood 198 mg/dL (75-99)
[2018-09-29] MEDS: SENNOSIDES-DOCUSATE SODIUM 1 EACH TAB PO SCH (22:03)
[2018-09-29] MEDS: ACETAMINOPHEN TAB 325 MG TAB PO SCH (22:03)
[2018-09-29] MEDS: MONTELUKAST 10 MG TAB PO SCH (22:03)
[2018-09-29] MEDS: ATORVASTATIN 10 MG TAB PO SCH (22:04)
[2018-09-30 07:17] LABS: Glucose,Whole Blood 123 mg/dL (75-99)
[2018-09-30] MEDS: INSULIN ASPART 100 UNIT/ML 1 ML 10 ML VIAL SQ SCH ×2 (07:27→12:51)
[2018-09-30 07:32] VITALS: BP 132/56; PULSE 72; RESP 18; TEMP 99.4
[2018-09-30] MEDS: IPRATROPIUM-ALBUTEROL 3 ML NEB INHALATION SCH ×2 (08:55→12:01)
[2018-09-30] MEDS: amLODIPine 10 MG TAB PO SCH (08:57)
[2018-09-30] MEDS: CHOLECALCIFEROL 1,000 UNIT TAB PO SCH (08:57)
[2018-09-30] MEDS: APIXABAN 2.5 MG TABLET PO SCH (08:57)
[2018-09-30] MEDS: LETROZOLE 2.5 MG TAB PO SCH (08:58)
[2018-09-30] MEDS: FERROUS SULFATE 325 MG TAB PO SCH (08:58)
[2018-09-30] MEDS: ATENOLOL 50 MG TAB PO SCH (08:58)
[2018-09-30] MEDS: FENOFIBRATE 160 MG TAB PO SCH (08:58)
[2018-09-30] MEDS: cloNIDine HCL 0.1 MG TAB PO SCH (08:58)
[2018-09-30] MEDS: PANTOPRAZOLE 40 MG TABLET PO SCH (08:58)
[2018-09-30] MEDS: hydrALAZINE HCL 25 MG TAB PO SCH (08:58)
[2018-09-30 09:29] LABS: Calcium 8.5 mg/dL (8.4-10.2); Potassium 3.7 mmol/L (3.5-5.1)
--- NOTE | 2018-09-30 09:35 | P.PN ---
Subjective Progress Note Date: 09/30/18 This is a 72-year-old female who is status post right hip hemiarthroplasty. This is postoperative day #4. Patient is seen and evaluated at bedside. Patient states that her pain is under control. Patient denies any new complaints today. Patient denies any fever/chills, numbness, weakness, tingling , abdominal pain, shortness of breath or chest pain. Objective - Vital Signs Vital signs: Vital Signs Temp 99.4 F 09/30/18 07:32 Pulse 72 09/30/18 07:32 Resp 18 09/30/18 07:32 BP 132/56 09/30/18 07:32 Pulse Ox 94 L 09/30/18 07:32 Intake & Output 09/29/18 09/30/18 09/30/18 18:59 06:59 18:59 Intake Total 500 480 Output Total 400 250 200 Balance 100 230 -200 Intake: Oral 500 480 Output: Urine 400 250 200 Uretheral (Brunner) 200 Other: Voiding Method Indwelling Catheter Indwelling Catheter Indwelling Catheter - Exam Vital signs are stable. Patient is sitting comfortably in a chair in no acute distress. Patient is alert and oriented 3. Calf is soft and nontender to palpation. Dressing is clean, dry, and intact. Patient has full foot and ankle motion without pain or difficulty. Neurovascular status and circulatory status are intact. - Labs CBC & Chem 7: 09/29/18 08:30 09/30/18 07:59 Labs: Abnormal Lab Results - Last 24 Hours (Table) 09/29/18 09/29/18 09/29/18 Range/Units 11:52 16:38 19:40 BUN (7-17) mg/dL Creatinine (0.52-1.04) mg/dL Glucose (74-99) mg/dL POC Glucose (mg/dL) 151 H 156 H 198 H (75-99) mg/dL 09/30/18 09/30/18 Range/Units 07:04 07:59 BUN 31 H (7-17) mg/dL Creatinine 2.97 H (0.52-1.04) mg/dL Glucose 156 H (74-99) mg/dL POC Glucose (mg/dL) 123 H (75-99) mg/dL Assessment and Plan Assessment: History of breast cancer Diabetes mellitus with retinopathy and neuropathy GERD Hyperlipidemia Hypertension Renal disease (1) Fracture of femoral neck, right Current Visit: Yes Status: Acute Code(s): S72.001A - FRACTURE OF UNSP PART OF NECK OF RIGHT FEMUR, INIT SNOMED Code(s): 9604443 (2) Fall Current Visit: Yes Status: Acute Code(s): W19.XXXA - UNSPECIFIED FALL, INITIAL ENCOUNTER SNOMED Code(s): 4522933 (3) Chronic renal disease Current Visit: No Status: Acute Code(s): N18.9 - CHRONIC KIDNEY DISEASE, UNSPECIFIED SNOMED Code(s): 677308847 Plan: Continue routine postop care. Continue hip precautions with abductor pillow. Continue antocoagulation. Weightbearing as tolerated with a walker. Leave dressing in place for 10 days. Patient is cleared for discharge from an orthopedic standpoint. Plan is discharge to rehab when cleared medically.
[2018-09-30] MEDS: HYDROcodone/APAP 5-325MG 1 EACH TAB PO PRN (10:29)
[2018-09-30] MEDS: LEVOFLOXACIN 250MG-D5W PMX 250 MG in DEXTROSE/WATER 1 50ML.BAG IVPB SCH (11:47)
[2018-09-30] MEDS ORDERED: LEVOFLOXACIN 250 MG TAB PO SCH (12:00)
[2018-09-30 12:07] LABS: Glucose,Whole Blood 146 mg/dL (75-99)
--- NOTE | 2018-09-30 14:57 | PN ---
PROGRESS NOTE Patient is followup for end-stage renal disease. She tolerated dialysis well yesterday. She denies any significant complaints. There are plans for possible discharge today. She is awaiting rehab placement. PHYSICAL EXAMINATION: Blood pressure was 132/86, heart rate is 72 per minute. She is afebrile. Examination of the heart S1, S2. Examination of the lungs bilateral breath sounds are heard. Abdomen is soft, nontender. Examination of the lower extremities shows no significant edema. There is trace edema noted in the right lower extremity. LABS: Sodium of 137, potassium 3.7, BUN 31, serum creatinine 2.97. ASSESSMENT: 1. End-stage renal disease, on hemodialysis on a Saturday, Saturday, Saturday schedule, status post hemodialysis yesterday. 2. Status post right hip fracture, status post right hip hemiarthroplasty, currently doing well. 3. Hypertension, currently controlled. 4. CKD mineral bone disorder, maintained on Rocaltrol. PLAN: Continue with current medicines. Patient is stable for discharge from Nephrology standpoint. MMODL / IJN: [id number] /
--- NOTE | 2018-09-30 17:12 | P.PN ---
Subjective 72 years old female who has history of end-stage renal disease on hemodialysis, hyperlipidemia, hypertension, GERD, diabetes mellitus, she presents because of fall and right hip fracture, patient could not tell how much insulin she was taking, however we put her on sliding scale. Patient has been evaluated by nephrology and orthopedic team. Patient is planned to go for surgery tomorrow. Patient thinks she took her aspirin today, so Aspirin is on hold , 09/25/2018 Patient surgeon Speck postponed until tomorrow. She is given for hemodialysis today and tomorrow. Patient is upset because she couldn't get the surgery today. She has some nausea and has been treated by the staff. 09/26/2018 patient underwent right hip hemiarthroplasty today for her right hip fracture. Patient is seen and evaluated after the surgery and she was sleepy and lethargic however she was fully awake and making appropriate answers. Patient denies chest pain or dyspnea. DVT prophylaxis with Eliquis 09/27/2018 She is postop day #1 for right hip hemiarthroplasty today for her right hip fracture. Patient was lying in bed comfortable not in distress. No chest pain or dyspnea. Vitas is stable. She had mild leukocytosis with looks like reactive to the surgery as well as for her urinary tract infection. Currently she is on levofloxacin. Her pain was controlled. Creatinine 2.7 and nephrology R following the case. 09/28/2018 pt is postop day #2 for right hip hemiarthroplasty today for her right hip fracture. clinically looks stable , she has some malaise. she is on levaquin with renal dosing for her UTI. UC is still in process, pt with leukocytosis , nephrology are following the case for her ESRD on HD. she is on eluquis for DVT prophylaxis, renal dosing which might also help for her a fib. Hb is slight drop which is expected after surgery 09/29/2018 Patient is complaining of pain in the right hip area patient blood pressure is low normal and do not believe she'll require clonidine clonidine will be discontinued which was started during this last aspiration patient is on low- dose twice a day of clonidine at because of which I believe this can be discontinued if needed her atenolol can be increased. Patient will undergo hemodialysis after which probably she can be discharged. Discharge medications were reviewed and appropriate reconciliation was done. 09/30/2018 Patient is being discharged today after do multiple changes in her a discharge medication reconciliation today I did clear up concerns of from subacute rehabilitation. Constitutional: Denied any fatigue denied any fever. Cardio vascular: denied any chest pain, palpitations Gastrointestinal denied any nausea vomiting Pulmonary: Denied any shortness of breath cough Neurologic denied any new focal deficits All inpatient medications were reviewed and appropriate changes in these medications as dictated in the interval history and assessment and plan. Objective - Vital Signs Vital signs: Vital Signs Temp 99.4 F 09/30/18 07:32 Pulse 72 09/30/18 07:32 Resp 18 09/30/18 07:32 BP 132/56 09/30/18 07:32 Pulse Ox 94 L 09/30/18 07:32 Intake & Output 09/29/18 09/30/18 09/30/18 18:59 06:59 18:59 Intake Total 500 480 Output Total 400 250 200 Balance 100 230 -200 Intake: Oral 500 480 Output: Urine 400 250 200 Uretheral (Brunner) 200 Other: Voiding Method Indwelling Catheter Indwelling Catheter Indwelling Catheter # Bowel Movements 1 - Exam GENERAL: The patient is alert and oriented x3, not in any acute distress. Obese HEENT: Pupils are round and equally reacting to light. EOMI. No scleral icterus. No conjunctival pallor. Normocephalic, atraumatic. No pharyngeal erythema. No thyromegaly. CARDIOVASCULAR: S1 and S2 present. No murmurs, rubs, or gallops. PULMONARY: Chest is clear to auscultation, no wheezing or crackles. ABDOMEN: Soft, nontender, nondistended, normoactive bowel sounds. No palpable organomegaly. MUSCULOSKELETAL: No joint swelling or deformity. -EXTREMITIES: No cyanosis, clubbing, or pedal edema. Right lower extremity is shortened and externally rotated NEUROLOGICAL: Gross neurological examination did not reveal any focal deficits. SKIN: No rashes. - Labs CBC & Chem 7: 09/29/18 08:30 09/30/18 07:59 Labs: Abnormal Lab Results - Last 24 Hours (Table) 09/29/18 09/30/18 09/30/18 Range/Units 19:40 07:04 07:59 BUN 31 H (7-17) mg/dL Creatinine 2.97 H (0.52-1.04) mg/dL Glucose 156 H (74-99) mg/dL POC Glucose (mg/dL) 198 H 123 H (75-99) mg/dL 09/30/18 Range/Units 11:44 BUN (7-17) mg/dL Creatinine (0.52-1.04) mg/dL Glucose (74-99) mg/dL POC Glucose (mg/dL) 146 H (75-99) mg/dL Assessment and Plan Plan: Assessment and Plan Assessment: Right hip fracture UTI pending discharged on 3 more days of antibiotic urine cultures also were negative acute blood loss anemia after surgery , expected . End-stage renal disease on hemodialysis History of diabetes mellitus History of GERD History of hyperlipidemia History of essential hypertension Plan: As mentioned above
--- NOTE | 2018-10-01 09:18 | CDI ---
Documentation Clarification Form Date: 10/01/2018 8:49:23 AM From: Sarita Eaton RN, CCDS Admit Date: 09/24/2018 3:50:00 AM Patient Name: Kristin Allred Visit Number: [id number] Discharge Date: 09/30/2018 2:18:00 PM ATTENTION: The Clinical Documentation Specialists (CDI) and [facility] Coding Staff appreciate your assistance in clarifying documentation. Please respond to the clarification below the line at the bottom and electronically sign. The CDI & [facility] Coding staff will review the response and follow-up if needed. Please note: Queries are made part of the Legal Health Record. If you have any questions, please contact the author of this message via ITS. Dr. Viri Carrasco History/Risk Factors: A diagnosis of UTI has been documented, begins 09/25/18. The patient was transferred from [place] [facility] in bathroom for orthopedic evaluation of right femur fracture. Based on all documentation available from both MD's and Nursing, it appears IDC was in place at time of admission on 09/24/18 0326 09/24/18 0800 IDC is 1st noted voiding method. Hx: Fall with right femur FX, DM w neuropathy, End stage renal disease HD dependant Clinical Indicators: 09/28 Medical Progress note: (Sheet) "she has some malaise. She is on levaquin with renal dosing for her UTI." 09/30 Medical Progress note: (Luna) UTI pending discharged on 3 more days of antibiotic urine cultures also were negative." 09/25 OA Progress Note: Right hip hemiarthroplasty is canceled today due to elevated white count and UTI." 09/29 OA D/C Summary: "Patient has been treated for a UTI during this admission with Levaquin." Urinalysis: cloudy, +3 gravity, +1 glucose, moderate blood, large LE, 11 RBC, > 182 WBC, many WBC clumps, many bacteria, rare mucus Urine culture: not done Lab results: WBC 17.6/13.4/13.6, Neutrophils 13.8/11.1/10.4, renal failure noted by labs Treatment: 09/25/18 Levaquin 500 mg IVPB x 1 dose followed by Levaquin 250 mg IVPB q 48hrs starting 09/26/18, changed to 250 mf PO QOD 09/30/18 In your professional opinion, can you please clarify the etiology of the UTI, if known and if the condition was likely POA? UTI r/t Brunner catheter UTI not related to catheter Other condition, please specify Unable to determine POA status: POA on transfer to this facility Not POA Unable to determine If an infective organism is present, please specify cause and effect relationship if applicable. (Last Revision: December 2017) Unable to determine MTDD
--- NOTE | 2018-10-02 09:06 | CDI ---
Documentation Clarification Form Date: 10/02/18 From: Brandi Jose Luis Renae Garcia, Cosmetologist Apprentice Hours-8:30 am & 5 pm M-F Admit Date: 09/24/2018 3:50:00 AM Patient Name: Kristin Allred Visit Number: [id number] Discharge Date: 09/30/2018 2:18:00 PM ATTENTION: The Clinical Documentation Specialists (CDI) and [facility] Coding Staff appreciate your assistance in clarifying documentation. Please respond to the clarification below the line at the bottom and electronically sign. The CDI & [facility] Coding staff will review the response and follow-up if needed. Please note: Queries are made part of the Legal Health Record. If you have any questions, please contact the author of this message via ITS. Dr. Viri Carrasco Transient atrial fibrillation is documented in the PNs 09/27, 09/28, 09/29 & 09/30. She underwent right hemiarthroplasty on 09/26 and was preop in atrial fibrillation. History/Risk Factors: ESRD/HTN/DM/Diastolic CHF not in AE, dialsysis EKG/telemetry: Normal sinus rhythm on admission, Surgical profile documents atrial fibrillation Treatment: Eliquis added on 09/26 In your professional opinion, can you please clarify the type of Atrial Fibrillation, if known? Chronic/Permanent Paroxysmal Persistent Other, please specify Unable to determine Persistent MTDD
[2018-10-03] MEDS ORDERED: DARBEPOETIN ALFA 60 MCG/0.3 ML SYRINGE SQ SCH (09:00)
== END 2018-09-30 14:18 | DRG 469 ==
LOC: EC 03:25 → 3SCARD 03:50 → 4SSUR 09-25 17:59 → 4MS4W 09-25 20:55 → 4SSUR 09-26 23:17
PROVIDERS: ADMIT Orthopaedic Surgery; ATTEND Orthopaedic Surgery
PROC: 5A1D70Z Performance of Urinary Filtration, Intermittent, Less than 6 Hours Per Day (ICD-10-PCS; 2018-09-25)
PROC: 5A1D70Z Performance of Urinary Filtration, Intermittent, Less than 6 Hours Per Day (ICD-10-PCS; 2018-09-26)
PROC: 0SRR01A Replacement of Right Hip Joint, Femoral Surface with Metal Synthetic Substitute, Uncemented, Open Approach (ICD-10-PCS; principal; 2018-09-26 12:00)
PROC: 5A1D70Z Performance of Urinary Filtration, Intermittent, Less than 6 Hours Per Day (ICD-10-PCS; 2018-09-29)
DX: S72.011A Unspecified intracapsular fracture of right femur, initial encounter for closed fracture (principal); N18.6 End stage renal disease; I13.2 Hypertensive heart and chronic kidney disease with heart failure and with stage 5 chronic kidney disease, or end stage renal disease; I50.32 Chronic diastolic (congestive) heart failure; D62 Acute posthemorrhagic anemia; N39.0 Urinary tract infection, site not specified; I48.1 Persistent atrial fibrillation; E11.22 Type 2 diabetes mellitus with diabetic chronic kidney disease; E11.40 Type 2 diabetes mellitus with diabetic neuropathy, unspecified; E11.319 Type 2 diabetes mellitus with unspecified diabetic retinopathy without macular edema; E83.9 Disorder of mineral metabolism, unspecified; D63.1 Anemia in chronic kidney disease; E78.5 Hyperlipidemia, unspecified; M19.90 Unspecified osteoarthritis, unspecified site; K21.9 Gastro-esophageal reflux disease without esophagitis; Z79.82 Long term (current) use of aspirin; Z79.4 Long term (current) use of insulin; Z79.811 Long term (current) use of aromatase inhibitors; Z79.899 Other long term (current) drug therapy; Z99.2 Dependence on renal dialysis; Z87.891 Personal history of nicotine dependence; Z90.49 Acquired absence of other specified parts of digestive tract; Z98.891 History of uterine scar from previous surgery; Z85.3 Personal history of malignant neoplasm of breast; Z87.01 Personal history of pneumonia (recurrent); Z87.440 Personal history of urinary (tract) infections; Z98.51 Tubal ligation status; Z98.42 Cataract extraction status, left eye; Z98.41 Cataract extraction status, right eye; Z96.1 Presence of intraocular lens; Z88.0 Allergy status to penicillin; W01.0XXA Fall on same level from slipping, tripping and stumbling without subsequent striking against object, initial encounter; Y92.002 Bathroom of unspecified non-institutional (private) residence as the place of occurrence of the external cause; Z83.3 Family history of diabetes mellitus
CPT/HCPCS: 36415; 71045; 73501; 73502; 80048; 81001; 83036; 84100; 85025; 85610; 85730; 86706; 86850; 86900; 86901; 87340; 88305; 88311; 90935; 93005; 94640; 96372; 96374; 96376; 99285

== ENCOUNTER 2020-06-19 13:04 | Observation (INO) | payer MEDICARE, OTHER ==
--- NOTE | 2020-06-19 14:35 | XR ---
EXAMINATION TYPE: XR chest 2V DATE OF EXAM: 06/19/2020 COMPARISON: 09/24/2018 HISTORY: Short of breath TECHNIQUE: 2 views FINDINGS: Heart and mediastinum are normal. Lungs are clear of infiltrate. There are no hilar masses. Costophrenic angles are clear. Bony thorax is intact. IMPRESSION: No active cardiopulmonary disease. Normal heart. No change.
[2020-06-19 15:27] LABS: Basophils % (A) 0 %; Eosinophils # (A) 0.7 k/uL (0-0.7); Eosinophils % (A) 5 %; HCT 33.2 % (34.0-46.0); HGB 10.5 gm/dL (11.4-16.0); Lymphocytes # (A) 3.2 k/uL (1.0-4.8); Lymphocytes % (A) 21 %; MCH 28.7 pg (25.0-35.0); MCHC 31.7 g/dL (31.0-37.0); MCV 90.6 fL (80.0-100.0); Mean Platelet Volume 8.1; Monocytes # (A) 0.8 k/uL (0-1.0); Monocytes % (A) 5 %; Neutrophils # (A) 10.4 k/uL (1.3-7.7); Neutrophils % (A) 68 %; Platelet Count 196 k/uL (150-450); RBC 3.66 m/uL (3.80-5.40); RDW 13.6 % (11.5-15.5); WBC 15.3 k/uL (3.8-10.6)
[2020-06-19] MEDS ORDERED: NALOXONE 0.4 MG/ML 1 ML VIAL IV PRN (15:28)
[2020-06-19] MEDS ORDERED: ACETAMINOPHEN TAB 325 MG TAB PO PRN ×2 (15:28→19:24)
--- NOTE | 2020-06-19 15:28 | ED ---
General Adult HPI - General Chief complaint: Upper Respiratory Infection Stated complaint: Possible Covid Time Seen by Provider: 06/19/20 13:04 Source: patient, EMS, RN notes reviewed, old records reviewed Mode of arrival: EMS Limitations: no limitations - History of Present Illness Initial comments: This is a 74-year-old female who was transferred here from a [facility] due to being Covid positive on a test. She is asymptomatic no fevers chills nausea vomiting sweats trouble taste or smell. No other symptoms reported she is a dialysis patient has Saturday dialysis. Apparently the facility she was had he has no ability to care for patient's isolation. She voices no complaints at this time no other modifying factors. - Related Data Home Medications Medication Instructions Recorded Confirmed Fenofibrate [Lofibra] 160 mg PO DAILY 02/05/14 09/24/18 Pantoprazole Sodium [Protonix] 40 mg PO DAILY 02/05/14 09/24/18 calcitrioL [Rocaltrol] 0.25 mcg PO TH 10/16/17 09/24/18 Letrozole [Femara] 2.5 mg PO DAILY 07/31/18 09/24/18 Acetaminophen Tab [Tylenol] 325 mg PO HS 08/13/18 09/24/18 Cholecalciferol (Vitamin D3) 2,000 unit PO DAILY 08/13/18 09/24/18 [Vitamin D3] Ferrous Sulfate [Iron (65 MG 325 mg PO DAILY 08/13/18 09/24/18 Elemental)] Multivit-Min/FA/Lycopen/Lutein 1 tab PO DAILY 08/13/18 09/24/18 [Centrum Silver Tablet] Ondansetron HCl [Zofran] 8 mg PO DAILY 08/13/18 09/24/18 Atorvastatin [Lipitor] 10 mg PO HS 09/24/18 09/24/18 Previous Rx's Medication Instructions Recorded Sodium Bicarbonate Tab 1,300 mg PO BID #120 tab 08/04/18 amLODIPine [Norvasc] 10 mg PO DAILY #30 tab 08/04/18 Montelukast [Singulair] 10 mg PO HS tab 08/20/18 Apixaban [Eliquis] 2.5 mg PO BID #30 tab 09/29/18 HYDROcodone/APAP 5-325MG [[place] 1 - 2 tab PO Q4-6H PRN #84 tab 09/29/18 5-325] Sennosides [Senokot] 1 tab PO BID #60 tablet 09/29/18 Darbepoetin Bryant [Aranesp] 60 mcg SQ Q7D syringe 09/30/18 INSULIN LISPRO (humaLOG) [humaLOG] 1 injection SQ DIRECTED #10 ml 09/30/18 Levofloxacin [Levaquin] 250 mg PO Q2D #2 tab 09/30/18 atenoloL [Tenormin] 100 mg PO DAILY tab 09/30/18 Allergies Allergy/AdvReac Type Severity Reaction Status Date / Time Penicillins Allergy Rash/Hives Verified 09/24/18 07:45 Review of Systems ROS Statement: Those systems with pertinent positive or pertinent negative responses have been documented in the HPI. ROS Other: All systems not noted in ROS Statement are negative. Past Medical History Past Medical History: Cancer, Heart Failure, Diabetes Mellitus, Eye Disorder, GERD/Reflux, Hyperlipidemia, Hypertension, Osteoarthritis (OA), Pneumonia, Renal Disease Additional Past Medical History / Comment(s): HX OF LEFT BREAST CANCER- SX. STATES CURRENT BLADDER INFECTION, NEUROPATHY FEET, HANDS, RT EYE DIABETIC RETINOPATHY, STATES LITTLE VISION, HAD A PNE VACCINE NOT SURE OF DATE, WRTITER UNABLE TO VERIFY DATE AT TIME OF ADMIT,PLEASE F/U IN AM History of Any Multi-Drug Resistant Organisms: None Reported Past Surgical History: Section, Cholecystectomy, Tonsillectomy, Tubal Ligation Additional Past Surgical History / Comment(s): LEFT BREAST LUMPECTOMY- no chemo, no radiation but took hormone pills, D&C, GERSON CATARACT SX-LENS IMPLANTS. Past Anesthesia/Blood Transfusion Reactions: Previous Problems w/ Anesthesia Additional Past Anesthesia/Blood Transfusion Reaction / Comment(s): STATED "TOOK A LONG TIME WAKING UP FROM ANESTHESIA" Past Psychological History: No Psychological Hx Reported Smoking Status: Former smoker Past Alcohol Use History: None Reported Past Drug Use History: None Reported - Past Family History Mother Family Medical History: No Reported History Brother(s) Family Medical History: Diabetes Mellitus General Exam - General Exam Comments Initial Comments: This is a well up well-nourished awake alert oriented 3 female Limitations: no limitations General appearance: alert, in no apparent distress Head exam: Present: atraumatic, normocephalic, normal inspection Eye exam: Present: normal appearance, PERRL, EOMI. Absent: scleral icterus, conjunctival injection, periorbital swelling ENT exam: Present: normal exam, mucous membranes moist Neck exam: Present: normal inspection. Absent: tenderness, meningismus, lymphadenopathy Respiratory exam: Present: normal lung sounds bilaterally. Absent: respiratory distress, wheezes, rales, rhonchi, stridor Cardiovascular Exam: Present: regular rate, normal rhythm, normal heart sounds. Absent: systolic murmur, diastolic murmur, rubs, gallop, clicks GI/Abdominal exam: Present: soft, normal bowel sounds. Absent: distended, tenderness, guarding, rebound, rigid Extremities exam: Present: normal inspection, full ROM, normal capillary refill, other (Right upper extremity fistula with a palpable thrill.). Absent: tenderness, pedal edema, joint swelling, calf tenderness Back exam: Present: normal inspection Neurological exam: Present: alert, oriented X3, CN II-XII intact Psychiatric exam: Present: normal affect, normal mood Skin exam: Present: warm, dry, intact, normal color. Absent: rash Course Vital Signs 06/19/20 13:09 Temperature 98.1 F Pulse Rate 60 Respiratory 17 Rate Blood Pressure 154/56 O2 Sat by Pulse 98 Oximetry Medical Decision Making - Medical Decision Making I did discuss findings with Dr. Mendez who is covering the patient's attending physician patient will be admitted for evaluation. - Lab Data Lab Results 06/19/20 Range/Units 13:54 Influenza Type A RNA Not Detected (Not Detectd) Influenza Type B (PCR) Not Detected (Not Detectd) Disposition Clinical Impression: COVID-19 virus detected, Chronic renal failure syndrome Disposition: ADMITTED IP TO THIS HOSP Condition: Stable Referrals: Vladislav Long MD [Primary Care Provider] - 1-2 days
[2020-06-19] MEDS ORDERED: HYDROcodone/APAP 5-325MG 1 EACH TAB PO PRN ×2 (15:30→16:58)
[2020-06-19] MEDS ORDERED: DARBEPOETIN ALFA 60 MCG/0.3 ML SYRINGE SQ SCH (15:30)
[2020-06-19 15:54] LABS: Albumin 3.5 g/dL (3.5-5.0); Calcium 8.6 mg/dL (8.4-10.2); Potassium 4.5 mmol/L (3.5-5.1); Total Bilirubin 0.6 mg/dL (0.2-1.3); Total Protein 6.2 g/dL (6.3-8.2)
[2020-06-19] MEDS: SODIUM CHLORIDE 0.9% 1,000 ML IV SCH (16:58)
[2020-06-19 17:39] LABS: Glucose,Whole Blood 152 mg/dL (75-99)
[2020-06-19] MEDS ORDERED: NYSTATIN 100,000 UNIT/GM POWD 15 GM TOPICAL PRN (19:24)
[2020-06-19] MEDS ORDERED: LOPERAMIDE 2 MG CAP PO PRN (19:24)
[2020-06-19] MEDS ORDERED: guaiFENesin SYRUP 100MG/5ML 200 MG/10 ML CUP PO PRN (19:24)
[2020-06-19] MEDS ORDERED: MAGNESIUM HYDROXIDE 2,400 MG/10 ML CUP PO PRN (19:24)
[2020-06-19] MEDS ORDERED: BENZOCAINE/MENTHOL LOZENG 1 EACH LOZENGE MUCOUS MEM PRN (19:24)
[2020-06-19] MEDS ORDERED: ALPRAZolam 0.25 MG TAB PO PRN (19:26)
[2020-06-19] MEDS: APIXABAN 2.5 MG TABLET PO SCH (20:57)
[2020-06-19] MEDS: MELATONIN 5 MG TABLET PO SCH (20:57)
[2020-06-19] MEDS: ACETAMINOPHEN TAB 325 MG TAB PO SCH (20:57)
[2020-06-19] MEDS: MONTELUKAST 10 MG TAB PO SCH (20:57)
[2020-06-19] MEDS: ATORVASTATIN 10 MG TAB PO SCH (20:57)
[2020-06-19 20:59] LABS: Glucose,Whole Blood 220 mg/dL (75-99)
[2020-06-19] MEDS ORDERED: SODIUM BICARBONATE TAB 650 MG TAB PO SCH (21:00)
[2020-06-19] MEDS ORDERED: SENNOSIDES 8.6 MG TAB PO SCH (21:00)
--- NOTE | 2020-06-20 00:03 | HP ---
HISTORY AND PHYSICAL CHIEF COMPLAINT: COVID positive. HISTORY OF PRESENT ILLNESS: This 74-year-old woman with a past medical history of multiple medical problems including CHF, history of diabetes type 2, hypertension, hyperlipidemia, DJD, chronic kidney disease, receiving hemodialysis on Saturday, , Saturday protocol was living in [facility]. The patient was found to have COVID positive and patient was asymptomatic. Patient was sent here because of lack of dialysis facility. There is no history of any fever or rigors. No history of headache, loss of consciousness, chest pain, palpitation. PAST MEDICAL HISTORY: History of CHF, history of diabetes mellitus type 2, hypertension, hyperlipidemia, history of DJD, section, cholecystectomy. MEDICATIONS: Medications prior to admission include: 1. Simethicone, Gas-X, 125 mg p.o. t.i.d. 2. Singulair. 3. Tylenol. 4. Renvela. 5. Senna. 6. Protonix. 7. Magnesium concentrate. 8. Belk. 9. ProAmatine. 10.Lipitor. 11.Lantus. 12.Fish oil. 13.Flonase. 14.Cymbalta. 15.Eliquis. 16.Claritin. 17.Vitamin D3. 18.Cepacol. 19.Tenormin. 20.Antifungal powder. Doses are reviewed. ALLERGIES: PENICILLIN. FAMILY HISTORY: No history of heart disease or strokes in the family. SOCIAL HISTORY: Previous history of smoking. No history of current smoking or alcohol intake. REVIEW OF SYSTEMS: ENT: No diminished hearing or diminished vision. CARDIOVASCULAR SYSTEM: No angina or palpitations. RESPIRATORY SYSTEM: As mentioned earlier. GI: No nausea. : As mentioned earlier. NERVOUS SYSTEM: No numbness or weakness. ALLERGY/IMMUNOLOGY: No asthma, hay fever. MUSCULOSKELETAL: As mentioned earlier. HEMATOLOGY: No history of anemia. ENDOCRINE: Diabetes mellitus. CONSTITUTIONAL: As mentioned earlier. DERMATOLOGY: Negative. RHEUMATOLOGY: Negative. PSYCHIATRY: As mentioned earlier. PHYSICAL EXAMINATION: The patient is alert and oriented x3. Pulse 83, blood pressure is 193/84, respirations 16, temperature 98.1, pulse ox 94% on room air. HEENT: Conjunctivae normal. Oral mucosa moist. NECK: No jugular venous distention. CARDIOVASCULAR: S1, S2 muffled. RESPIRATORY: Breath sounds diminished at the bases. No rhonchi, no crackles. ABDOMEN: Soft, obese, nontender. No mass palpable. LEGS: No edema, no swelling. NERVOUS SYSTEM: Higher function as mentioned earlier. Moves all 4 limbs. No focal motor or sensory deficits. LYMPHATICS: No lymphadenopathy of the neck, axillae or groin. SKIN: No ulcer, rash or bleeding. JOINTS: No active deforming arthropathy. LABS: WBC 15.3, hemoglobin 10.5, sodium 136, creatinine 4.28. ASSESSMENT: 1. Acute COVID-19 infection. 2. Chronic kidney disease, end-stage renal disease on hemodialysis. 3. Increased WBC. 4. Anemia, normocytic. 5. Hyponatremia. 6. History of congestive heart failure, ejection fraction unknown. 7. Diabetes mellitus type 2. 8. Gastroesophageal reflux disease. 9. Hypertension. 10.Hyperlipidemia. 11.History of degenerative joint disease. 12.History of pneumonia. 13.History of left breast cancer. 14.History of peripheral neuropathy. 15.History of retinopathy. 16.History of section. 17.History of cholecystectomy. 18.History of left breast lumpectomy. 19.Remote history of nicotine dependence. 20.FULL CODE. RECOMMENDATIONS AND DISCUSSION: This 74-year-old woman who presented with multiple complex medical issues. At this time I recommend to continue the current medications, continue with symptomatic treatment. Otherwise, COVID-19 is positive. I would recommend nephrology consultation, hemodialysis. Flu is negative. I would recommend also social work, case management to arrange for a place where she could continue with the hemodialysis. Otherwise home medication will be continued. A copy of dictation forwarded to Dr. Vladislav Long who is the primary physician, MMRITU / BLESSINGN: [id number] /
[2020-06-20] MEDS: SIMETHICONE 80 MG CHEWABLE PO SCH ×4 (00:22→21:50)
[2020-06-20 06:49] LABS: Glucose,Whole Blood 110 mg/dL (75-99)
[2020-06-20 07:19] LABS: Basophils # (A) 0.1 k/uL (0-0.2); Basophils % (A) 1 %; Eosinophils # (A) 0.7 k/uL (0-0.7); Eosinophils % (A) 6 %; HCT 34.5 % (34.0-46.0); HGB 11.5 gm/dL (11.4-16.0); Hypochromasia Slight; Lymphocytes # (A) 2.5 k/uL (1.0-4.8); Lymphocytes % (A) 22 %; MCH 30.6 pg (25.0-35.0); MCHC 33.4 g/dL (31.0-37.0); MCV 91.6 fL (80.0-100.0); Mean Platelet Volume 8.2; Monocytes # (A) 0.6 k/uL (0-1.0); Monocytes % (A) 5 %; Neutrophils # (A) 7.5 k/uL (1.3-7.7); Neutrophils % (A) 65 %; Platelet Count 169 k/uL (150-450); RBC 3.77 m/uL (3.80-5.40); RDW 13.8 % (11.5-15.5); WBC 11.5 k/uL (3.8-10.6)
[2020-06-20] MEDS: SENNOSIDES 8.6 MG TAB PO SCH (08:06)
[2020-06-20] MEDS: LORATADINE 10 MG TAB PO SCH (08:06)
[2020-06-20] MEDS: PANTOPRAZOLE 40 MG TABLET PO SCH (08:06)
[2020-06-20] MEDS: LETROZOLE 2.5 MG TAB PO SCH (08:06)
[2020-06-20] MEDS: FLUTICASONE 50MCG/SPRAY NASAL 16GM EA NOSTRIL SCH (08:07)
[2020-06-20] MEDS: DULoxetine HCL 30 MG CAPSULE.DR PO SCH (08:07)
[2020-06-20] MEDS: INSULIN DETEMIR (LEVEMIR) 100 UNIT/ML SYR SQ SCH (08:07)
[2020-06-20] MEDS: CHOLECALCIFEROL 1,000 UNIT TAB PO SCH (08:07)
[2020-06-20] MEDS: atenoloL 50 MG TAB PO SCH (08:07)
[2020-06-20] MEDS: APIXABAN 2.5 MG TABLET PO SCH ×2 (08:07→21:49)
[2020-06-20] MEDS ORDERED: ONDANSETRON 4 MG TAB PO SCH (09:00)
[2020-06-20] MEDS ORDERED: FERROUS SULFATE 325 MG TAB PO SCH (09:00)
[2020-06-20] MEDS ORDERED: FENOFIBRATE 160 MG TAB PO SCH (09:00)
[2020-06-20] MEDS ORDERED: amLODIPine 10 MG TAB PO SCH (09:00)
[2020-06-20] MEDS ORDERED: MIDODRINE 5 MG TAB PO SCH (09:00)
[2020-06-20] MEDS ORDERED: LIDOCAINE-PRILOCAINE 2.5-2.5% CREAM 5 GM TUBE TOPICAL SCH (09:00)
[2020-06-20] MEDS ORDERED: NON FORMULARY DRUG (Omega-3 Fatty Acids/Fish Oil [Fish Oil 1,000 Mg Softgel] 1 EACH Capsul PO SCH (09:00)
[2020-06-20] MEDS ORDERED: MULTIVITAMINS, THERA 1 EACH TAB PO SCH (09:00)
[2020-06-20] MEDS ORDERED: atenoloL 50 MG TAB PO SCH (09:00)
[2020-06-20 11:22] LABS: African American GFR (CKD) 10.1 (60.0-200.0); Anion Gap 12.9 mmol/L (4.00-12.00); BUN/Creat Ratio 8.04 Ratio (12.00-20.00); Calcium 8.6 mg/dL (8.7-10.3); Carbon Dioxide 26.1 mmol/L (21.6-31.8); Non-African American GFR(CKD) 8.7 (60.0-200.0)
[2020-06-20 11:37] LABS: Glucose,Whole Blood 111 mg/dL (75-99)
--- NOTE | 2020-06-20 14:08 | P.DS ---
Providers Date of admission: 06/19/20 15:43 Attending physician: Duarte Mendez Consults: 06/19/20 15:29 Consult Physician Routine Consulting Provider: Michelle Bridges Consult Reason/Comments: Dialysis, Saturday Do you want consulting provider notified?: Yes 06/19/20 19:26 Consult Physician Routine Consulting Provider: Mariella Brown Consult Reason/Comments: covid -19 positive Do you want consulting provider notified?: Yes Primary care physician: Vladislav Long Hospital Course: Final diagnosis Probably false-positive: COVID 19 testing End-stage renal disease on hemodialysis History of CHF ejection fraction unknown Diabetes mellitus type II GERD Hypertension Hyperlipidemia History of DJD History of pneumonia cholecystectomy section nicotine dependence Discharge disposition The patient be discharged in a stable condition with guarded prognosis to [facility] under Dr. Long total time taken is 35 minutes History of present illness This 74-year-old woman with a past medical history multiple medical problems as mentioned being followed by Dr. Long and Dr. Bridges in the outpatient setting was found to have COVID 19 positive in the screening test at at the dialysis center. Because of concerns of COVID 19 patient was sent to [facility]. Patient was admitted and evaluated. Patient continues to be asymptomatic. Repeat COVID [address] Brown from infectious disease saw the patient. The patient is being returned to [facility] to continue the rest of the medications. The patient is stable at this time. Overall prognosis is guarded because of multiple Compass medical issues as listed above. Continue hemodialysis per Dr. Dr. Bridges continue the rest of the medications. On exam vitals are stable. Cardio S1 and S2 normal. Respirator system clear to auscultation. Abdomen soft nontender. Nervous system no focal deficit. Patient Condition at Discharge: Stable Plan - Discharge Summary Discharge Rx Participant: Yes New Discharge Prescriptions: Continue Pantoprazole Sodium [Protonix] 40 mg PO DAILY@0600 Letrozole [Femara] 2.5 mg PO DAILY@0700 Acetaminophen Tab [Tylenol] 325 mg PO HS Cholecalciferol (Vitamin D3) [Vitamin D3] 2,000 unit PO DAILY@1200 Montelukast [Singulair] 10 mg PO HS tab Atorvastatin [Lipitor] 10 mg PO HS@2100 Apixaban [Eliquis] 2.5 mg PO BID #30 tab Simethicone [Gas-X] 125 mg PO TID Sevelamer [Renvela] 800 mg PO TID-W/MEALS Sennosides [Senna] 17.2 mg PO DAILY@1200 Magnesium Hydroxide [Milk of Magnesia Concentrate] 7,200 mg PO DAILY PRN PRN Reason: Constipation HYDROcodone/APAP 5-325MG [[place] 5-325] 1 tab PO Q6HR PRN PRN Reason: Pain Midodrine [ProAmatine] 5 mg PO MOWEFR Melatonin 5 mg PO HS@2100 Lidocaine-Prilocaine Cream [Emla Cream 2.5%/2.5%] 1 applic TOPICAL MOWEFR Insulin Glargine,Hum.rec.anlog [Lantus Solostar] 10 unit SQ HS@2100 Loperamide [Imodium] 2 - 4 mg PO Q1H PRN PRN Reason: Diarrhea [place]-3 Fatty Acids/Fish Oil [Fish Oil 1,000 mg Softgel] 1 cap PO DAILY@1200 Fluticasone Propionate [Flonase Allergy Relief] 1 spray EA NOSTRIL DAILY@0700 guaiFENesin [Diabetic Tussin Ex] 200 mg PO Q4HR PRN PRN Reason: Cough DULoxetine HCL [Cymbalta] 30 mg PO DAILY@0700 Loratadine [Claritin] 10 mg PO Q48H Benzocaine/Menthol Lozeng [Cepacol lozenge] 1 lozenge MUCOUS MEM Q6H PRN PRN Reason: COLD, SORE THROAT atenoloL [Tenormin] 50 mg PO DAILY@1700 Anti-Fungal Powder 1 applic TOPICAL Q6H PRN PRN Reason: EXCORIATION Acetaminophen [Tylenol] 650 mg PO Q6H PRN PRN Reason: Pain Or Fever > 100.5 Discharge Medication List Pantoprazole Sodium [Protonix] 40 mg PO DAILY@0600 02/05/14 [History] Letrozole [Femara] 2.5 mg PO DAILY@0700 07/31/18 [History] Acetaminophen Tab [Tylenol] 325 mg PO HS 08/13/18 [History] Cholecalciferol (Vitamin D3) [Vitamin D3] 2,000 unit PO DAILY@1200 08/13/18 [History] Montelukast [Singulair] 10 mg PO HS tab 08/20/18 [Rx] Atorvastatin [Lipitor] 10 mg PO HS@209909/24/18 [History] Apixaban [Eliquis] 2.5 mg PO BID #30 tab 09/29/18 [Rx] Acetaminophen [Tylenol] 650 mg PO Q6H PRN 06/19/20 [History] Anti-Fungal Powder 1 applic TOPICAL Q6H PRN 06/19/20 [History] Benzocaine/Menthol Lozeng [Cepacol lozenge] 1 lozenge MUCOUS MEM Q6H PRN 06/19/20 [History] DULoxetine HCL [Cymbalta] 30 mg PO DAILY@69906/19/20 [History] Fluticasone Propionate [Flonase Allergy Relief] 1 spray EA NOSTRIL DAILY@69906/19/20 [History] HYDROcodone/APAP 5-325MG [[place] 5-325] 1 tab PO Q6HR PRN 06/19/20 [History] Insulin Glargine,Hum.rec.anlog [Lantus Solostar] 10 unit SQ HS@209906/19/20 [History] Lidocaine-Prilocaine Cream [Emla Cream 2.5%/2.5%] 1 applic TOPICAL MOWEFR 06/19/20 [History] Loperamide [Imodium] 2 - 4 mg PO Q1H PRN 06/19/20 [History] Loratadine [Claritin] 10 mg PO Q48H 06/19/20 [History] Magnesium Hydroxide [Milk of Magnesia Concentrate] 7,200 mg PO DAILY PRN 06/19/20 [History] Melatonin 5 mg PO HS@209906/19/20 [History] Midodrine [ProAmatine] 5 mg PO MOWEFR 06/19/20 [History] [place]-3 Fatty Acids/Fish Oil [Fish Oil 1,000 mg Softgel] 1 cap PO DAILY@119906/19/20 [History] Sennosides [Senna] 17.2 mg PO DAILY@119906/19/20 [History] Sevelamer [Renvela] 800 mg PO TID-W/MEALS 06/19/20 [History] Simethicone [Gas-X] 125 mg PO TID 06/19/20 [History] atenoloL [Tenormin] 50 mg PO DAILY@1700 06/19/20 [History] guaiFENesin [Diabetic Tussin Ex] 200 mg PO Q4HR PRN 06/19/20 [History] Follow up Appointment(s)/Referral(s): Vladislav Long MD [Primary Care Provider] - 1-2 days [facility], [NON-STAFF] - As Needed Activity/Diet/Wound Care/Special Instructions: Activity as tolerated Diet renal
[2020-06-20] MEDS: SEVELAMER 800 MG TAB PO SCH (16:53)
[2020-06-20] MEDS: SODIUM CHLORIDE 0.9% 1,000 ML IV SCH (16:54)
[2020-06-20 17:10] LABS: Glucose,Whole Blood 102 mg/dL (75-99)
[2020-06-20 20:20] LABS: Glucose,Whole Blood 113 mg/dL (75-99)
--- NOTE | 2020-06-20 21:16 | P.CONS ---
History of Present Illness - Reason for Consult Consult date: 06/20/20 + Covid 19 Test Requesting physician: Duarte Mendez - Chief Complaint + COVID 19 test - History of Present Illness Patient is a 74-year-old female with a past medical history significant for end-stage renal disease on hemodialysis the patient has been transferred from [facility] after she was noticed to have a positive Covid test, apparently the facility with the patient is did not have any bleeding care for the patient because of her isolation requirement in view of the positive testing, the patient denies having any headache no chest pain or shortness of breath or cough no URI symptoms no nausea no vomiting no gallbladder pain or any diarrhea, patient on arrival to the ER has been afebrile and no fever has been recorded, patient did have a mild leukocytosis and low leukopenia, patient did have normal liver enzymes no CRP or pro calcitonin has been done chest x-ray with no acute infiltrate, patient was admitted to the hospital infectious disease was consulted for further recommendation, patient did have a muir virus PCR done at this facility was subsequently came back negative Review of Systems Positive point has been mentioned in the HPI rest of the systems are negative Past Medical History Past Medical History: Cancer, Heart Failure, Diabetes Mellitus, Eye Disorder, GERD/Reflux, Hyperlipidemia, Hypertension, Osteoarthritis (OA), Pneumonia, Renal Disease Additional Past Medical History / Comment(s): HX OF LEFT BREAST CANCER- SX. STATES CURRENT BLADDER INFECTION, NEUROPATHY FEET, HANDS, RT EYE DIABETIC RETINOPATHY, STATES LITTLE VISION, HAD A PNE VACCINE NOT SURE OF DATE, WRTITER UNABLE TO VERIFY DATE AT TIME OF ADMIT,PLEASE F/U IN AM History of Any Multi-Drug Resistant Organisms: None Reported Past Surgical History: Section, Cholecystectomy, Tonsillectomy, Tubal Ligation Additional Past Surgical History / Comment(s): LEFT BREAST LUMPECTOMY- no chemo, no radiation but took hormone pills, D&C, GERSON CATARACT SX-LENS IMPLANTS. Past Anesthesia/Blood Transfusion Reactions: Previous Problems w/ Anesthesia Additional Past Anesthesia/Blood Transfusion Reaction / Comm: STATED "TOOK A LONG TIME WAKING UP FROM ANESTHESIA" Past Psychological History: No Psychological Hx Reported Smoking Status: Former smoker Past Alcohol Use History: None Reported Additional Past Alcohol Use History / Comment(s): SMOKED 1958 AND QUIT 1962 SMOKED Past Drug Use History: None Reported - Past Family History Mother Family Medical History: No Reported History Brother(s) Family Medical History: Diabetes Mellitus Medications and Allergies Home Medications Medication Instructions Recorded Confirmed Type Pantoprazole Sodium [Protonix] 40 mg PO DAILY@0600 02/05/14 06/19/20 History Letrozole [Femara] 2.5 mg PO DAILY@0700 07/31/18 06/19/20 History Acetaminophen Tab [Tylenol] 325 mg PO HS 08/13/18 06/19/20 History Cholecalciferol (Vitamin D3) 2,000 unit PO DAILY@1200 08/13/18 06/19/20 History [Vitamin D3] Montelukast [Singulair] 10 mg PO HS tab 08/20/18 06/19/20 Rx Atorvastatin [Lipitor] 10 mg PO HS@2100 09/24/18 06/19/20 History Apixaban [Eliquis] 2.5 mg PO BID #30 tab 09/29/18 06/19/20 Rx Acetaminophen [Tylenol] 650 mg PO Q6H PRN 06/19/20 06/19/20 History Anti-Fungal Powder 1 applic TOPICAL Q6H PRN 06/19/20 06/19/20 History Benzocaine/Menthol Lozeng [Cepacol 1 lozenge MUCOUS MEM Q6H PRN 06/19/20 06/19/20 History lozenge] DULoxetine HCL [Cymbalta] 30 mg PO DAILY@0706/19/20 06/19/20 History Fluticasone Propionate [Flonase 1 spray EA NOSTRIL DAILY@69906/19/20 06/19/20 History Allergy Relief] HYDROcodone/APAP 5-325MG [[place] 1 tab PO Q6HR PRN 06/19/20 06/19/20 History 5-325] Insulin Glargine,Hum.rec.anlog 10 unit SQ HS@209906/19/20 06/19/20 History [Lantus Solostar] Lidocaine-Prilocaine Cream [Emla 1 applic TOPICAL MOWEFR 06/19/20 06/19/20 History Cream 2.5%/2.5%] Loperamide [Imodium] 2 - 4 mg PO Q1H PRN 06/19/20 06/19/20 History Loratadine [Claritin] 10 mg PO Q48H 06/19/20 06/19/20 History Magnesium Hydroxide [Milk of 7,200 mg PO DAILY PRN 06/19/20 06/19/20 History Magnesia Concentrate] Melatonin 5 mg PO HS@2100 06/19/20 06/19/20 History Midodrine [ProAmatine] 5 mg PO MOWEFR 06/19/20 06/19/20 History [place]-3 Fatty Acids/Fish Oil [Fish 1 cap PO DAILY@1200 06/19/20 06/19/20 History Oil 1,000 mg Softgel] Sennosides [Senna] 17.2 mg PO DAILY@1200 06/19/20 06/19/20 History Sevelamer [Renvela] 800 mg PO TID-W/MEALS 06/19/20 06/20/20 History Simethicone [Gas-X] 125 mg PO TID 06/19/20 06/19/20 History atenoloL [Tenormin] 50 mg PO DAILY@1700 06/19/20 06/19/20 History guaiFENesin [Diabetic Tussin Ex] 200 mg PO Q4HR PRN 06/19/20 06/19/20 History Allergies Allergy/AdvReac Type Severity Reaction Status Date / Time Penicillins Allergy Rash/Hives Verified 06/19/20 23:44 Physical Exam Vitals: Vital Signs Temp Pulse Resp BP Pulse Ox 06/20/20 19:39 98.6 F 69 18 175/77 96 06/20/20 15:00 97.5 F L 61 16 192/66 98 06/20/20 07:00 97.9 F 78 18 178/81 95 06/20/20 01:28 97.9 F 74 16 185/78 97 Intake and Output 06/20/20 06/20/20 06/20/20 06:59 14:59 22:59 Intake Total 320 200 Balance 320 200 Intake: Intake, IV Titration 120 Amount Sodium Chloride 0.9% 1, 120 000 ml @ 20 mls/hr IV . Q24H [facility] Rx#:[id number] Oral 200 200 Other: # Voids 1 3 GENERAL DESCRIPTION: Elderly female lying in bed, no distress. No tachypnea or accessory muscle of respiration use. HEENT: Shows Pallor , no scleral icterus. Oral mucous membrane is dry. No pharyngeal erythema or thrush NECK: Trachea central, no thyromegaly. LUNGS: Unlabored breathing. Clear to auscultation anteriorly. No wheeze or crackle. HEART: S1, S2, regular rate and rhythm. No loud murmur ABDOMEN: Soft, no tenderness , guarding or rigidity, no organomegaly EXTREMITIES: No edema of feet. SKIN: No rash, no masses palpable. NEUROLOGICAL: The patient is awake, alert, oriented x3, mood and affect normal. Results CBC & Chem 7: 06/20/20 06:43 06/20/20 06:43 Labs: Abnormal Lab Results - Last 24 Hours (Table) 06/20/20 06/20/20 06/20/20 Range/Units 06:43 06:43 06:44 WBC 11.5 H (3.8-10.6) k/uL RBC 3.77 L (3.80-5.40) m/uL D-Dimer (<0.60) mg/L FEU Anion Gap 12.90 H (4.00-12.00) mmol/L BUN 37.0 H (9.0-27.0) mg/dL Creatinine 4.6 H (0.6-1.5) mg/dL Est GFR (CKD-EPI)AfAm 10.1 L (60.0-200.0) Est GFR (CKD-EPI)NonAf 8.7 L (60.0-200.0) BUN/Creatinine Ratio 8.04 L (12.00-20.00) Ratio POC Glucose (mg/dL) 110 H (75-99) mg/dL Calcium 8.6 L (8.7-10.3) mg/dL 06/20/20 06/20/20 06/20/20 Range/Units 11:35 12:45 17:08 WBC (3.8-10.6) k/uL RBC (3.80-5.40) m/uL D-Dimer 0.87 H (<0.60) mg/L FEU Anion Gap (4.00-12.00) mmol/L BUN (9.0-27.0) mg/dL Creatinine (0.6-1.5) mg/dL Est GFR (CKD-EPI)AfAm (60.0-200.0) Est GFR (CKD-EPI)NonAf (60.0-200.0) BUN/Creatinine Ratio (12.00-20.00) Ratio POC Glucose (mg/dL) 111 H 102 H (75-99) mg/dL Calcium (8.7-10.3) mg/dL 06/20/20 Range/Units 20:18 WBC (3.8-10.6) k/uL RBC (3.80-5.40) m/uL D-Dimer (<0.60) mg/L FEU Anion Gap (4.00-12.00) mmol/L BUN (9.0-27.0) mg/dL Creatinine (0.6-1.5) mg/dL Est GFR (CKD-EPI)AfAm (60.0-200.0) Est GFR (CKD-EPI)NonAf (60.0-200.0) BUN/Creatinine Ratio (12.00-20.00) Ratio POC Glucose (mg/dL) 113 H (75-99) mg/dL Calcium (8.7-10.3) mg/dL Microbiology - Last 24 Hours (Table) 06/19/20 13:54 Blood Culture - Preliminary Blood No Growth after 24 hours Assessment and Plan Assessment: 1- patient begin with Hospital with positive Covid 19 test this patient currently asymptomatic with no fever no respiratory symptoms no lymphopenia In a negative chest x-ray likely representing falsely positive rapid test and subsequent PCR test has been negative (1) COVID-19 virus detected Current Visit: Yes Status: Acute Code(s): U07.1 - COVID-19 SNOMED Code(s): 737274781 Plan: 1- no need for any specific therapy as the positive stress is likely false positive as patient clinically behaving as Covid 19 infection Arrangements are being made for the patient to be discharged back to the [facility] Time with Patient: Greater than 30
[2020-06-20] MEDS: ACETAMINOPHEN TAB 325 MG TAB PO SCH (21:48)
[2020-06-20] MEDS: ATORVASTATIN 10 MG TAB PO SCH (21:49)
[2020-06-20] MEDS: MONTELUKAST 10 MG TAB PO SCH (21:49)
[2020-06-20] MEDS: MELATONIN 5 MG TABLET PO SCH (21:49)
--- NOTE | 2020-06-20 21:55 | CONS ---
CONSULTATION REASON FOR CONSULT: Renal failure. HISTORY OF PRESENT ILLNESS: Patient is a 74-year-old female with end-stage renal disease, on hemodialysis on a Saturday, Saturday, Saturday schedule, who resides at rehab facility. The patient was admitted to the hospital as she was found to have rapid Covid test which turned out to be positive. She was found to have a positive rapid Covid test. The patient has been asymptomatic with no complaints of nausea, vomiting, fever, chills, shortness of breath, cough. No respiratory symptoms or GI symptoms. No history of loss of smell or taste. Repeat test has been ordered this morning. The patient is normally maintained on a Saturday, Saturday, Saturday schedule for dialysis. PAST MEDICAL HISTORY: End-stage renal disease, anemia of chronic disease, CKD mineral bone disorder, coronary artery disease, CHF, type 2 diabetes, history of pneumonia, history of breast cancer, history of retinopathy. PAST SURGICAL HISTORY: , cholecystectomy, tonsillectomy, tubal ligation, left breast lumpectomy, bilateral cataract surgery, lens implants. SOCIAL HISTORY: Patient is a former smoker. No history of drug abuse or alcohol abuse. MEDICATIONS: Medications at home prior to admission included fenofibrate, Protonix, Rocaltrol, Femara, vitamin D, Zofran, multivitamins, Lipitor, sodium bicarb, Norvasc, Eliquis, Aranesp, Levaquin, Tenormin. ALLERGIES: Include PENICILLIN, WHICH CAUSES RASH AND HIVES. EXAMINATION: Patient is comfortable, awake, not in any acute distress. Blood pressure is 178/81, heart rate 78 per minute, patient is afebrile. Examination shows patient is euvolemic with no significant edema noted in the lower extremities. Abdomen is soft, obese, nontender. IV graft in the right arm is functional. LAB: Show sodium 140, potassium 4.0, BUN of 37, serum creatinine 4.6. ASSESSMENT: 1. End-stage renal disease, on hemodialysis on a Saturday, Saturday, Saturday schedule. We will arrange for hemodialysis today. 2. Positive rapid Covid testing. We will repeat the test today. The patient is currently asymptomatic. 3. CKD mineral bone disorder. 4. History of cerebrovascular accident. 5. History of coronary artery disease. PLAN: Repeat Covid testing. If negative, patient can be discharged after dialysis. MMODL / IJN: [id number] /
[2020-06-21] MEDS: hydrALAZINE HCL 20 MG/ML 1 ML VIAL IVP PRN ×2 (02:04→07:32)
[2020-06-21 06:40] LABS: Glucose,Whole Blood 113 mg/dL (75-99)
--- NOTE | 2020-06-21 06:44 | PN ---
PROGRESS NOTE DATE OF SERVICE: 06/20/2020 INTERVAL HISTORY: This is a 74-year-old woman who was admitted to with COVID-19 possibility who is being closely monitored. The rapid COVID-19 is negative at this time but apparently the ECF would like to have another COVID-19 test before taking the patient back. No chest pain. No palpitations. No fever. Infectious Disease following the patient closely. PHYSICAL EXAMINATION: GENERAL: Patient is alert and oriented times three. VITAL SIGNS: Pulse 69, blood pressure 175/77, respirations 18, temperature 98.3, pulse ox normal. HEENT: Conjunctivae normal. NECK: No jugular venous distention. RESPIRATORY: Breath sounds diminished at the bases. No rhonchi, no crackles. HEART: S1 and S2, muffled. ABDOMEN: Soft, no tenderness. EXTREMITIES: No edema, no swelling. NERVOUS: No focal deficits. LAB STUDIES: WBC 11.5, D-dimer is 0.87 and calcium is 8.6. Influenza negative. ASSESSMENT: 1. COVID-19 possibly with possible infection but rapid test was negative. 2. Chronic kidney disease, end-stage renal disease on hemodialysis. 3. Increased WBC. 4. Anemia, normocytic. 5. Hyponatremia. 6. History of congestive heart failure with ejection fraction unknown. 7. Diabetes mellitus type 2. 8. Gastroesophageal reflux disease. 9. Hypertension. 10.Hyperlipidemia. 11.History of degenerative joint disease. 12.History of pneumonia. 13.History of left breast cancer. 14.History of peripheral neuropathy. 15.History of retinopathy. 16.History of section. 17.History of cholecystectomy. 18.History of left breast lumpectomy. 19.Remote history of nicotine dependence. 20.FULL CODE. RECOMMENDATIONS AND DISCUSSION: I recommend to continue current management and continue symptomatic treatment. Will obtain RT, PCR COVID. Otherwise, we will monitor the patient closely. Infectious Disease evaluation. Further recommendations to follow. Continue the rest of the medications. MMODL / IJN: [id number] /
[2020-06-21 07:22] VITALS: PULSE 71
[2020-06-21] MEDS: SIMETHICONE 80 MG CHEWABLE PO SCH ×2 (07:33→16:13)
[2020-06-21] MEDS: APIXABAN 2.5 MG TABLET PO SCH (07:33)
[2020-06-21] MEDS: atenoloL 50 MG TAB PO SCH (07:33)
[2020-06-21] MEDS: CHOLECALCIFEROL 1,000 UNIT TAB PO SCH (07:33)
[2020-06-21] MEDS: LORATADINE 10 MG TAB PO SCH (07:33)
[2020-06-21] MEDS: PANTOPRAZOLE 40 MG TABLET PO SCH (07:33)
[2020-06-21] MEDS: LETROZOLE 2.5 MG TAB PO SCH (07:34)
[2020-06-21] MEDS: DULoxetine HCL 30 MG CAPSULE.DR PO SCH (07:34)
[2020-06-21] MEDS: SEVELAMER 800 MG TAB PO SCH ×3 (07:34→17:31)
[2020-06-21] MEDS: SENNOSIDES 8.6 MG TAB PO SCH (07:34)
[2020-06-21] MEDS: INSULIN DETEMIR (LEVEMIR) 100 UNIT/ML SYR SQ SCH (07:35)
[2020-06-21] MEDS: FLUTICASONE 50MCG/SPRAY NASAL 16GM EA NOSTRIL SCH (07:35)
[2020-06-21 08:11] LABS: Basophils # (A) 0.1 k/uL (0-0.2); Basophils % (A) 1 %; Eosinophils # (A) 0.5 k/uL (0-0.7); Eosinophils % (A) 4 %; HCT 38.3 % (34.0-46.0); HGB 11.9 gm/dL (11.4-16.0); Hypochromasia Slight; Lymphocytes # (A) 1.8 k/uL (1.0-4.8); Lymphocytes % (A) 15 %; MCH 28.4 pg (25.0-35.0); MCV 91.9 fL (80.0-100.0); Mean Platelet Volume 8.3; Monocytes # (A) 0.5 k/uL (0-1.0); Monocytes % (A) 4 %; Neutrophils # (A) 9.3 k/uL (1.3-7.7); Neutrophils % (A) 76 %; Platelet Count 178 k/uL (150-450); RBC 4.17 m/uL (3.80-5.40); RDW 13.8 % (11.5-15.5); WBC 12.3 k/uL (3.8-10.6)
[2020-06-21 11:42] LABS: Glucose,Whole Blood 125 mg/dL (75-99)
[2020-06-21 12:33] LABS: African American GFR (CKD) 16.3 (60.0-200.0); Anion Gap 10.7 mmol/L (4.00-12.00); BUN/Creat Ratio 6.45 Ratio (12.00-20.00); Calcium 8.8 mg/dL (8.7-10.3); Carbon Dioxide 27.3 mmol/L (21.6-31.8); Potassium 4.2 mmol/L (3.5-5.5)
--- NOTE | 2020-06-21 14:56 | PN ---
PROGRESS NOTE Patient is seen for followup for end-stage renal disease. She was admitted to the hospital as a rapid COVID test was positive as outpatient. However, when the test was repeated in the hospital, it was negative. The patient needs two tests prior to going back to the residential. She is completely asymptomatic. Denies any significant complaints. The patient tolerated the dialysis well yesterday. PHYSICAL EXAMINATION: Today, she is comfortable. Blood pressure was 153/67, heart rate 71 per minute, patient is afebrile. Examination of the heart, S1, S2. Examination of the lungs, bilateral breath sounds are heard. Abdomen is soft, nontender. Examination of the lower extremities shows no significant edema, [employer]CH[employer]IC exam grossly intact. LABS: Show hemoglobin 11.9, sodium 136, potassium 4.2. ASSESSMENT: 1. End-stage renal disease, on hemodialysis on a Saturday, Saturday, Saturday schedule. 2. Asymptomatic positive muir virus testing as outpatient, repeat test was negative. Awaiting second repeat test before discharge back to residential. 3. CKD mineral bone disorder. 4. Hypertension, blood pressure is elevated. PLAN: Continue the phosphate binders. Use midodrine only during dialysis. Add KO inhibitors if blood pressure remains elevated. Usually patient's blood pressure drops during hemodialysis treatment. MMODL / IJN: [id number] /
[2020-06-21 15:25] VITALS: BP 154/66; RESP 18; TEMP 98.4
[2020-06-21] MEDS: SODIUM CHLORIDE 0.9% 1,000 ML IV SCH (16:13)
[2020-06-21 17:12] LABS: Glucose,Whole Blood 142 mg/dL (75-99)
== END 2020-06-21 17:47 ==
LOC: EC 13:04 → 4SSUR 15:43 → INTOOBSV 06-21 15:38 → OBSVTOIN 06-21 15:38 → UNDODISIN 06-21 17:47
PROVIDERS: ADMIT Hospitalist; ATTEND Hospitalist
DX: I13.2 Hypertensive heart and chronic kidney disease with heart failure and with stage 5 chronic kidney disease, or end stage renal disease (principal); N18.6 End stage renal disease; Z20.828 Contact with and (suspected) exposure to other viral communicable diseases; E11.22 Type 2 diabetes mellitus with diabetic chronic kidney disease; I50.9 Heart failure, unspecified; E11.319 Type 2 diabetes mellitus with unspecified diabetic retinopathy without macular edema; K21.9 Gastro-esophageal reflux disease without esophagitis; E78.5 Hyperlipidemia, unspecified; M19.90 Unspecified osteoarthritis, unspecified site; C50.912 Malignant neoplasm of unspecified site of left female breast; N30.90 Cystitis, unspecified without hematuria; E11.40 Type 2 diabetes mellitus with diabetic neuropathy, unspecified; D63.1 Anemia in chronic kidney disease; E87.1 Hypo-osmolality and hyponatremia; M89.9 Disorder of bone, unspecified; E83.9 Disorder of mineral metabolism, unspecified; I25.10 Atherosclerotic heart disease of native coronary artery without angina pectoris; Z99.2 Dependence on renal dialysis; Z79.899 Other long term (current) drug therapy; Z79.811 Long term (current) use of aromatase inhibitors; Z79.891 Long term (current) use of opiate analgesic; Z79.4 Long term (current) use of insulin; Z79.01 Long term (current) use of anticoagulants; Z88.0 Allergy status to penicillin; Z87.01 Personal history of pneumonia (recurrent); Z98.890 Other specified postprocedural states; Z90.49 Acquired absence of other specified parts of digestive tract; Z90.89 Acquired absence of other organs; Z98.51 Tubal ligation status; Z98.41 Cataract extraction status, right eye; Z98.42 Cataract extraction status, left eye; Z96.1 Presence of intraocular lens; Z91.89 Other specified personal risk factors, not elsewhere classified; Z87.891 Personal history of nicotine dependence; Z86.73 Personal history of transient ischemic attack (TIA), and cerebral infarction without residual deficits; Z83.3 Family history of diabetes mellitus
CPT/HCPCS: 96376; 96374; 99285; 36415; 85379; 80053; 80048 ×2; 85025 ×3; 87040; 87502; 71046; G0257; G0378 ×3; U0003 ×2; J0360; 90935

== ENCOUNTER 2020-07-01 15:03 | Inpatient (IN) | payer MEDICARE, OTHER ==
[2020-07-01 15:18] LABS: Glucose,Whole Blood 195 mg/dL (75-99)
[2020-07-01] MEDS ORDERED: NALOXONE 0.4 MG/ML 1 ML VIAL IVP STA ×2 (15:44→16:29)
[2020-07-01] MEDS ORDERED: SODIUM CHLORIDE 0.9% 1,000 ML IV STA ×2 (15:44→20:09)
[2020-07-01 16:08] LABS: Basophils # (A) 0.1 k/uL (0-0.2); Basophils % (A) 0 %; Eosinophils # (A) 0.1 k/uL (0-0.7); Eosinophils % (A) 1 %; HCT 41.5 % (34.0-46.0); HGB 13.1 gm/dL (11.4-16.0); Hypochromasia Slight; Lymphocytes # (A) 0.9 k/uL (1.0-4.8); Lymphocytes % (A) 8 %; MCH 29.7 pg (25.0-35.0); MCHC 31.5 g/dL (31.0-37.0); MCV 94.2 fL (80.0-100.0); Mean Platelet Volume 8.7; Monocytes # (A) 0.3 k/uL (0-1.0); Monocytes % (A) 3 %; Neutrophils # (A) 10.6 k/uL (1.3-7.7); Neutrophils % (A) 88 %; Platelet Count 214 k/uL (150-450); RDW 13.7 % (11.5-15.5)
[2020-07-01 16:21] LABS: ALT 18 U/L (4-34); AST 28 U/L (14-36); African American GFR (CKD) 20 (>60 ml/min/1.73 sqM); Alcohol <10 mg/dL; Alkaline Phosphatase 144 U/L (38-126); Anion Gap 10 mmol/L; Blood Urea Nitrogen 13 mg/dL (7-17); Calcium 9.2 mg/dL (8.4-10.2); Carbon Dioxide 33 mmol/L (22-30); Chloride 93 mmol/L (98-107); Creatine Kinase 32 U/L (30-135); Glucose 205 mg/dL (74-99); Non-African American GFR(CKD) 17 (>60 ml/min/1.73 sqM); Potassium 3.8 mmol/L (3.5-5.1); Sodium 136 mmol/L (137-145); Total Bilirubin 0.6 mg/dL (0.2-1.3)
[2020-07-01 16:23] LABS: Partial Thromboplastin Time 26.1 sec (22.0-30.0); Prothrombin Time 10.5 sec (9.0-12.0)
[2020-07-01] MEDS ORDERED: LABETALOL 5 MG/ML VIAL MDV IVP STA ×3 (16:28→20:14)
[2020-07-01] MEDS ORDERED: SODIUM CHLORIDE 0.9% 500 ML 500 ML IV STA (16:28)
--- NOTE | 2020-07-01 16:32 | ED ---
Altered Mental Status HPI - General Chief Complaint: Altered Mental Status Stated Complaint: Altered Status Time Seen by Provider: 07/01/20 15:16 Source: EMS, RN notes reviewed, old records reviewed Mode of arrival: EMS Limitations: no limitations - History of Present Illness Initial Comments: This is a 74-year-old female DF for evaluation patient Dese for evaluation and altered mental status she is accepted in transfer from [facility] for decreased responsiveness a seizure. On arrival to our ER patient still unresponsive, but she is maintaining her airway a phasic moving her left side. MD Complaint: altered mental status, confusion, decreased responsiveness, weakness -: hour(s) Severity: mild Consistency of Symptoms: constant Associated Symptoms: denies other symptoms - Related Data Home Medications Medication Instructions Recorded Confirmed Pantoprazole Sodium [Protonix] 40 mg PO DAILY@0600 02/05/14 06/19/20 Letrozole [Femara] 2.5 mg PO DAILY@0700 07/31/18 06/19/20 Acetaminophen Tab [Tylenol] 325 mg PO HS 08/13/18 06/19/20 Cholecalciferol (Vitamin D3) 2,000 unit PO DAILY@1200 08/13/18 06/19/20 [Vitamin D3] Atorvastatin [Lipitor] 10 mg PO HS@2100 09/24/18 06/19/20 Acetaminophen [Tylenol] 650 mg PO Q6H PRN 06/19/20 06/19/20 Anti-Fungal Powder 1 applic TOPICAL Q6H PRN 06/19/20 06/19/20 Benzocaine/Menthol Lozeng [Cepacol 1 lozenge MUCOUS MEM Q6H PRN 06/19/20 06/19/20 lozenge] DULoxetine HCL [Cymbalta] 30 mg PO DAILY@0700 06/19/20 06/19/20 Fluticasone Propionate [Flonase 1 spray EA NOSTRIL DAILY@0706/19/20 06/19/20 Allergy Relief] HYDROcodone/APAP 5-325MG [[place] 1 tab PO Q6HR PRN 06/19/20 06/19/20 5-325] Insulin Glargine,Hum.rec.anlog 10 unit SQ HS@2100 06/19/20 06/19/20 [Lantus Solostar] Lidocaine-Prilocaine Cream [Emla 1 applic TOPICAL MOWEFR 06/19/20 06/19/20 Cream 2.5%/2.5%] Loperamide [Imodium] 2 - 4 mg PO Q1H PRN 06/19/20 06/19/20 Loratadine [Claritin] 10 mg PO Q48H 06/19/20 06/19/20 Magnesium Hydroxide [Milk of 7,200 mg PO DAILY PRN 06/19/20 06/19/20 Magnesia Concentrate] Melatonin 5 mg PO HS@2100 06/19/20 06/19/20 Midodrine [ProAmatine] 5 mg PO MOWEFR 06/19/20 06/19/20 Carmen-3 Fatty Acids/Fish Oil [Fish 1 cap PO DAILY@1200 06/19/20 06/19/20 Oil 1,000 mg Softgel] Sennosides [Senna] 17.2 mg PO DAILY@1200 06/19/20 06/19/20 Sevelamer [Renvela] 800 mg PO TID-W/MEALS 06/19/20 06/20/20 Simethicone [Gas-X] 125 mg PO TID 06/19/20 06/19/20 atenoloL [Tenormin] 50 mg PO DAILY@1700 06/19/20 06/19/20 guaiFENesin [Diabetic Tussin Ex] 200 mg PO Q4HR PRN 06/19/20 06/19/20 Previous Rx's Medication Instructions Recorded Montelukast [Singulair] 10 mg PO HS tab 08/20/18 Apixaban [Eliquis] 2.5 mg PO BID #30 tab 09/29/18 Allergies Allergy/AdvReac Type Severity Reaction Status Date / Time Penicillins Allergy Rash/Hives Verified 07/01/20 15:13 Review of Systems ROS Statement: Those systems with pertinent positive or pertinent negative responses have been documented in the HPI. ROS Other: All systems not noted in ROS Statement are negative. Past Medical History Past Medical History: Cancer, Heart Failure, Diabetes Mellitus, Eye Disorder, GERD/Reflux, Hyperlipidemia, Hypertension, Osteoarthritis (OA), Pneumonia, Renal Disease Additional Past Medical History / Comment(s): HX OF LEFT BREAST CANCER- SX. STATES CURRENT BLADDER INFECTION, NEUROPATHY FEET, HANDS, RT EYE DIABETIC RETINOPATHY, STATES LITTLE VISION, HAD A PNE VACCINE NOT SURE OF DATE, WRTITER UNABLE TO VERIFY DATE AT TIME OF ADMIT,PLEASE F/U IN AM History of Any Multi-Drug Resistant Organisms: None Reported Past Surgical History: Section, Cholecystectomy, Tonsillectomy, Tubal Ligation Additional Past Surgical History / Comment(s): LEFT BREAST LUMPECTOMY- no chemo, no radiation but took hormone pills, D&C, GERSON CATARACT SX-LENS IMPLANTS. Past Anesthesia/Blood Transfusion Reactions: Previous Problems w/ Anesthesia Additional Past Anesthesia/Blood Transfusion Reaction / Comment(s): STATED "TOOK A LONG TIME WAKING UP FROM ANESTHESIA" Past Psychological History: No Psychological Hx Reported Smoking Status: Former smoker Past Alcohol Use History: None Reported Past Drug Use History: None Reported - Past Family History Mother Family Medical History: No Reported History Brother(s) Family Medical History: Diabetes Mellitus General Exam General appearance: alert, in no apparent distress Head exam: Present: atraumatic, normocephalic, normal inspection Eye exam: Present: normal appearance, PERRL, EOMI. Absent: scleral icterus, conjunctival injection, periorbital swelling ENT exam: Present: normal exam, mucous membranes moist Neck exam: Present: normal inspection. Absent: tenderness, meningismus, lymphadenopathy Respiratory exam: Present: normal lung sounds bilaterally. Absent: respiratory distress, wheezes, rales, rhonchi, stridor Cardiovascular Exam: Present: regular rate, normal rhythm, normal heart sounds. Absent: systolic murmur, diastolic murmur, rubs, gallop, clicks GI/Abdominal exam: Present: soft, normal bowel sounds. Absent: distended, tenderness, guarding, rebound, rigid Extremities exam: Present: normal inspection, full ROM, normal capillary refill. Absent: tenderness, pedal edema, joint swelling, calf tenderness Back exam: Present: normal inspection Neurological exam: Present: alert, oriented X3, CN II-XII intact Psychiatric exam: Present: normal affect, normal mood Skin exam: Present: warm, dry, intact, normal color. Absent: rash Course Vital Signs 07/01/20 07/01/20 07/01/20 15:04 15:30 15:48 Temperature 98.4 F Pulse Rate 80 87 Respiratory 18 18 16 Rate Blood Pressure 149/84 219/89 O2 Sat by Pulse 93 L 94 L Oximetry 07/01/20 07/01/20 16:00 17:26 Temperature Pulse Rate 87 91 Respiratory 18 18 Rate Blood Pressure 147/116 216/93 O2 Sat by Pulse 93 L 94 L Oximetry - Reevaluation(s) Reevaluation #1: 07/01/20 17:18 Medical records reviewed Reevaluation #2: 07/01/20 17:18 Age remains significantly altered here in the ER Reevaluation #3: 07/01/20 17:19 Dr. Kern for neurology did evaluate patient here in the emergency department requesting CTA scan and attempt to get dialysis after CTA - Consultations Consultation #1: Spoke with Dr. Ram agrees regarding this patient Medical Decision Making - Medical Decision Making 74 female DF for evaluation because altered mental status remains completely altered here in the ER, patient will be is admitted for a phasic CVA patient is a DO NOT RESUSCITATE - Lab Data Result diagrams: 07/01/20 15:51 07/01/20 15:51 Lab Results 07/01/20 07/01/20 07/01/20 Range/Units 15:16 15:51 15:51 WBC 12.0 H (3.8-10.6) k/uL RBC 4.40 (3.80-5.40) m/uL Hgb 13.1 (11.4-16.0) gm/dL Hct 41.5 (34.0-46.0) % MCV 94.2 (80.0-100.0) fL MCH 29.7 (25.0-35.0) pg MCHC 31.5 (31.0-37.0) g/dL RDW 13.7 (11.5-15.5) % Plt Count 214 (150-450) k/uL Neutrophils % 88 % Lymphocytes % 8 % Monocytes % 3 % Eosinophils % 1 % Basophils % 0 % Neutrophils # 10.6 H (1.3-7.7) k/uL Lymphocytes # 0.9 L (1.0-4.8) k/uL Monocytes # 0.3 (0-1.0) k/uL Eosinophils # 0.1 (0-0.7) k/uL Basophils # 0.1 (0-0.2) k/uL Hypochromasia Slight PT 10.5 (9.0-12.0) sec INR 1.0 (<1.2) APTT 26.1 (22.0-30.0) sec Sodium (137-145) mmol/L Potassium (3.5-5.1) mmol/L Chloride (98-107) mmol/L Carbon Dioxide (22-30) mmol/L Anion Gap mmol/L BUN (7-17) mg/dL Creatinine (0.52-1.04) mg/dL Est GFR (CKD-EPI)AfAm (>60 ml/min/1.73 sqM) Est GFR (CKD-EPI)NonAf (>60 ml/min/1.73 sqM) Glucose (74-99) mg/dL POC Glucose (mg/dL) 195 H (75-99) mg/dL POC Glu Dog Races Manager ID [place] Calcium (8.4-10.2) mg/dL Total Bilirubin (0.2-1.3) mg/dL AST (14-36) U/L ALT (4-34) U/L Alkaline Phosphatase (38-126) U/L Ammonia (<30) umol/L Creatine Kinase (30-135) U/L Troponin I (0.000-0.034) ng/mL Total Protein (6.3-8.2) g/dL Albumin (3.5-5.0) g/dL Serum Alcohol mg/dL 07/01/20 07/01/20 07/01/20 Range/Units 15:51 15:51 15:51 WBC (3.8-10.6) k/uL RBC (3.80-5.40) m/uL Hgb (11.4-16.0) gm/dL Hct (34.0-46.0) % MCV (80.0-100.0) fL MCH (25.0-35.0) pg MCHC (31.0-37.0) g/dL RDW (11.5-15.5) % Plt Count (150-450) k/uL Neutrophils % % Lymphocytes % % Monocytes % % Eosinophils % % Basophils % % Neutrophils # (1.3-7.7) k/uL Lymphocytes # (1.0-4.8) k/uL Monocytes # (0-1.0) k/uL Eosinophils # (0-0.7) k/uL Basophils # (0-0.2) k/uL Hypochromasia PT (9.0-12.0) sec INR (<1.2) APTT (22.0-30.0) sec Sodium 136 L (137-145) mmol/L Potassium 3.8 (3.5-5.1) mmol/L Chloride 93 L (98-107) mmol/L Carbon Dioxide 33 H (22-30) mmol/L Anion Gap 10 mmol/L BUN 13 (7-17) mg/dL Creatinine 2.59 H (0.52-1.04) mg/dL Est GFR (CKD-EPI)AfAm 20 (>60 ml/min/1.73 sqM) Est GFR (CKD-EPI)NonAf 17 (>60 ml/min/1.73 sqM) Glucose 205 H (74-99) mg/dL POC Glucose (mg/dL) (75-99) mg/dL POC Glu Dog Races Manager ID Calcium 9.2 (8.4-10.2) mg/dL Total Bilirubin 0.6 (0.2-1.3) mg/dL AST 28 (14-36) U/L ALT 18 (4-34) U/L Alkaline Phosphatase 144 H (38-126) U/L Ammonia <9 (<30) umol/L Creatine Kinase 32 (30-135) U/L Troponin I <0.012 (0.000-0.034) ng/mL Total Protein 7.0 (6.3-8.2) g/dL Albumin 4.0 (3.5-5.0) g/dL Serum Alcohol <10 mg/dL - EKG Data -: EKG Interpreted by Me (EKG is sinus rhythm 80 [place] 166 QRS 86 QTc 465) - Radiology Data Radiology results: report reviewed (CT brain CTA had neck), image reviewed Disposition Clinical Impression: Altered mental status, Unresponsive, CVA (cerebral vascular accident) Disposition: ADMITTED IP TO THIS [facility] Condition: Serious Is patient prescribed a controlled substance at d/c from ED?: No Referrals: Vladislav Long MD [Primary Care Provider] - 1-2 days
--- NOTE | 2020-07-01 16:57 | P.CNNES ---
History of Present Illness Consult date: 07/01/20 Reason for Consult: altered mental status History of Present Illness: This is a 74-year-old woman with medical history left foot drop, ESRD on royce lysis, diabetes type 2, hypertension, hyperlipidemia, congestive heart failure, left breast cancer, who is a transfer from the [facility] for further workup of altered mental status. Unable to obtain history from the patient as well as I attempted to contact the patient's son but no response. History is obtained from medical record. Patient today went for dialysis, and 15 minutes prior to finishing dialysis she became hypotensive and the she was complaining of the chest pain. Patient received 800 mL of fluid which resolved her hypotension. Patient then was taken to [facility] upon arrival it's documented that she denied any chest pain, dizziness shortness of breath. And that she was back to normal. EMS report was that she her GCS was 14 in total from the dialysis center to [facility]. Then the patient became altered mental status. Unknown time of onset of her change in condition. Was felt the patient had ureter tract infection so patient received 1 dose of Recephin. Upon the patient presenting that to the [facility] ED she was aphasic and per the EMS she was aphasic to them as well. Outside work-up: CT of the head was reported as atrophy with chronic appearing periventricular white matter ischemic changes. No acute intracranial process. EKG was reported as sinus rhythm. Consider left ventricular hypertrophy. Borderline prolonged QT interval. Sodium was 138, glucose was 146, White blood cell was 60.72. Calcium is 9. Lactic acid was 1.7. Urine analysis was cloudy, nitrate was negative, leukocyte esterase was 1 positive and the bacteria was 3 positive. Of note the patient was discharged from our facility on 06/20/20 and that presented to the facility for COVID 19 positive screening at the dialysis center. She had a repeat COVID 19 testing which was negative. On the discharge note it's stated that the COVID positive is likely a false positive. He seems that the patient was discharged from our facility with L Kannan 2.5 mg twice a day and Lipitor 10 mg daily. Review of Systems The review of system is limited but the parent positive and negative per HPI. Past Medical History Past Medical History: Cancer, Heart Failure, Diabetes Mellitus, Eye Disorder, GERD/Reflux, Hyperlipidemia, Hypertension, Osteoarthritis (OA), Pneumonia, Renal Disease Additional Past Medical History / Comment(s): HX OF LEFT BREAST CANCER- SX. STATES CURRENT BLADDER INFECTION, NEUROPATHY FEET, HANDS, RT EYE DIABETIC RETINOPATHY, STATES LITTLE VISION, HAD A PNE VACCINE NOT SURE OF DATE, WRTITER UNABLE TO VERIFY DATE AT TIME OF ADMIT,PLEASE F/U IN AM History of Any Multi-Drug Resistant Organisms: None Reported Past Surgical History: Section, Cholecystectomy, Tonsillectomy, Tubal Ligation Additional Past Surgical History / Comment(s): LEFT BREAST LUMPECTOMY- no chemo, no radiation but took hormone pills, D&C, GERSON CATARACT SX-LENS IMPLANTS. Past Anesthesia/Blood Transfusion Reactions: Previous Problems w/ Anesthesia Additional Past Anesthesia/Blood Transfusion Reaction / Comment(s): STATED "TOOK A LONG TIME WAKING UP FROM ANESTHESIA" Past Psychological History: No Psychological Hx Reported Smoking Status: Former smoker Past Alcohol Use History: None Reported Past Drug Use History: None Reported - Past Family History Mother Family Medical History: No Reported History Brother(s) Family Medical History: Diabetes Mellitus Medications and Allergies Home Medications Medication Instructions Recorded Confirmed Type Pantoprazole Sodium [Protonix] 40 mg PO DAILY@0600 02/05/14 06/19/20 History Letrozole [Femara] 2.5 mg PO DAILY@0700 07/31/18 06/19/20 History Acetaminophen Tab [Tylenol] 325 mg PO HS 08/13/18 06/19/20 History Cholecalciferol (Vitamin D3) 2,000 unit PO DAILY@1200 08/13/18 06/19/20 History [Vitamin D3] Montelukast [Singulair] 10 mg PO HS tab 08/20/18 06/19/20 Rx Atorvastatin [Lipitor] 10 mg PO HS@2100 09/24/18 06/19/20 History Apixaban [Eliquis] 2.5 mg PO BID #30 tab 09/29/18 06/19/20 Rx Acetaminophen [Tylenol] 650 mg PO Q6H PRN 06/19/20 06/19/20 History Anti-Fungal Powder 1 applic TOPICAL Q6H PRN 06/19/20 06/19/20 History Benzocaine/Menthol Lozeng [Cepacol 1 lozenge MUCOUS MEM Q6H PRN 06/19/20 06/19/20 History lozenge] DULoxetine HCL [Cymbalta] 30 mg PO DAILY@69906/19/20 06/19/20 History Fluticasone Propionate [Flonase 1 spray EA NOSTRIL DAILY@69906/19/20 06/19/20 History Allergy Relief] HYDROcodone/APAP 5-325MG [[place] 1 tab PO Q6HR PRN 06/19/20 06/19/20 History 5-325] Insulin Glargine,Hum.rec.anlog 10 unit SQ HS@209906/19/20 06/19/20 History [Lantus Solostar] Lidocaine-Prilocaine Cream [Emla 1 applic TOPICAL MO06/19/20 06/19/20 History Cream 2.5%/2.5%] Loperamide [Imodium] 2 - 4 mg PO Q1H PRN 06/19/20 06/19/20 History Loratadine [Claritin] 10 mg PO Q48H 06/19/20 06/19/20 History Magnesium Hydroxide [Milk of 7,200 mg PO DAILY PRN 06/19/20 06/19/20 History Magnesia Concentrate] Melatonin 5 mg PO HS@209906/19/20 06/19/20 History Midodrine [ProAmatine] 5 mg PO MOWEFR 06/19/20 06/19/20 History [place]-3 Fatty Acids/Fish Oil [Fish 1 cap PO DAILY@119906/19/20 06/19/20 History Oil 1,000 mg Softgel] Sennosides [Senna] 17.2 mg PO DAILY@119906/19/20 06/19/20 History Sevelamer [Renvela] 800 mg PO TID-W/MEALS 06/19/20 06/20/20 History Simethicone [Gas-X] 125 mg PO TID 06/19/20 06/19/20 History atenoloL [Tenormin] 50 mg PO DAILY@169906/19/20 06/19/20 History guaiFENesin [Diabetic Tussin Ex] 200 mg PO Q4HR PRN 06/19/20 06/19/20 History Allergies Allergy/AdvReac Type Severity Reaction Status Date / Time Penicillins Allergy Rash/Hives Verified 07/01/20 15:13 Physical Examination - Vital Signs Vital Signs: Vital Signs Temp Pulse Resp BP Pulse Ox 07/01/20 15:04 98.4 F 80 18 149/84 93 L Intake and Output 07/01/20 07/01/20 07/01/20 06:59 14:59 22:59 Other: Weight 90.718 kg GENERAL: The patient is lying in bed and seemed restless. CHEST: The heart rate is regular rate rhythm. No murmurs to auscultation. No carotid bruit bilaterally. LUNG: Clear to auscultation bilaterally no wheezing noted throughout. Not labored breathing. ABDOMEN/GI: Bowel sounds present in all 4 quadrants. No tenderness to palpation throughout. NEUROLOGICAL: Limited because of patient's condition. Higher mental function: The patient is awake, alert. Aphasic. Not verbalizing or following commands. She is neglecting her right side. Cranial nerves: The pupils are round, equal (4mm bilaterally) and reactive to light. She her gaze is midline to somewhat left gaze preference. Visual morales unable to assess to controntation but seems intact to threat throughout. Facial sensation is unable to assess. No facial weakness seen. Hearing is unable to assess. Shoulder shrug: unable to assess. Motor: Gait is deferred. She seems to be moving the left upper extremity a little bit more than the right upper extremity. She seem to be moving both above gravity (L>R). She had a brace on the left lower extremity (for foot drop). We'll painful stimulation that she's able to bend the both her knees at bedside. Decreased bulk on the left calf. Cerebellum: Unable to assess. Sensation: Unable to assess light touch. But seems to have intact sensation to pain throughout. Reflexes: Unable to assess. Plantars are downgoing bilaterally. Results - Laboratory Findings CBC and BMP: 07/01/20 15:51 07/01/20 15:51 Abnormal Lab Findings: Abnormal Labs 07/01/20 15:16 POC Glucose (mg/dL) 195 H Assessment and Plan Assessment: 74-year-old woman with medical history positive, left foot drop, ESRD on dialysis, diabetes type 2, who is a transfer from the [facility] for further workup of altered mental status. During dialysis she bacame hypotensive and had chest pain. At outside Hospital, she had altered mental status so she was transferred to [facility] for further evaluation. She seems to be aphasic on presentation neglecting the right side and moving the left upper extremity more than the right extremity. Aphasia, movement of left upper extremity > right and neglecting the right side is concerning for acute stroke. No IV TPA since unknown last normal. Toxic metabolic encephalopathy End-stage renal disease on dialysis Episode of hypotension False Positive COVID-19 (had COVID 19 at dialysis and was positive then repeat on 06/20/2020 was negative) Hypertension Hx of Left foot drop Diabetic peripheral neuropathy Hyperlipidemia History of congestive heart failure History of left breast cancer History of right retinopathy X tobacco use Plan: Recommend CTA of the head and neck stat to rule out any thrombus. This is to be coordinated with dialysis. I placed the patient on the aspirin 300 mg 1 time stat rectal then continue 81mg daily. Also place the patient on Lipitor 80 mg daily. On her recent discharge on 06/20/2020 from our facility she was discharged on Eliquis, not sure if she the patient was taken it in and for what reason. Once the patient is stable recommend MRI of the brain. Ordered 2-D echo We'll get lipid profile and TSH. Ordered PT, OT and DOCTOR OF AUDIOLOGY Cardiac monitoring. Also ordered a routine EEG. I attempted to contact the patient family via phone the about no response. The plan was discussed with the the ED attending. Thank you for the consultation. ADDENDUM: CT of the head was reported as cerebral atrophy. Mild periventricular chronic small vessel ischemia. No acute intracranial abnormality. I personally reviewed the CT of the head and I don't see any acute ischemia, hemorrhage or any significant encephalomalacia. CT of the head and neck was reported as negative. Keshav Trujillo M.D. Neuro-hospitalist Time with Patient: Greater than 30
[2020-07-01] MEDS ORDERED: ASPIRIN 300 MG SUPP RECTAL STA (17:16)
[2020-07-01] MEDS ORDERED: ATORVASTATIN 80 MG TAB PO STA (17:19)
--- NOTE | 2020-07-01 18:05 | CT ---
EXAMINATION TYPE: CT brain wo con DATE OF EXAM: 07/01/2020 COMPARISON: None HISTORY: Altered mental status. CT DLP: 1079.8 mGycm Automated exposure control for dose reduction was used. There is some cerebral cortical atrophy. There is no mass effect nor midline shift. There is no sign of intracranial hemorrhage. There is mild hypodensity around the frontal horns of the lateral ventric les. Calvarium is intact. IMPRESSION: Cerebral atrophy. Mild periventricular chronic small vessel ischemia. No acute intracranial abnormali ty.
--- NOTE | 2020-07-01 18:36 | CT ---
EXAMINATION TYPE: CT angio head neck DATE OF EXAM: 07/01/2020 COMPARISON: None HISTORY: Altered mental status. CT DLP: 549.3 mGycm Automated exposure control for dose reduction was used. CONTRAST: Performed with IV Contrast, patient injected with 130 mL of Isovue 370. There are 3-D post processed images. Images were obtained from the aortic arch to the vertex of the b rain with IV contrast. There is normal branching pattern of the great vessels on the aortic arch. There is bilateral arteria l flow in the subclavian arteries. There is arterial flow in the common internal and external carotid arteries bilaterally. There is arterial flow in both vertebral arteries. There is wide patency of th e carotid artery bifurcations. There is arterial flow in the vertebrobasilar artery system. There is arterial flow in the anterior middle and posterior cerebral arteries bilaterally. There is no evidenc e of intracranial aneurysm or neovascularity. I see no evidence of intracranial hemodynamic stenosis. There is normal contrast opacification of the venous sinuses. IMPRESSION: Negative CT angiogram of the neck. Negative CT angiogram of the brain.
[2020-07-01] MEDS ORDERED: LORazepam 2 MG/ML INJ IV STA (19:03)
[2020-07-01] MEDS: SODIUM CHLORIDE 0.9% 1,000 ML IV SCH (19:09)
[2020-07-01] MEDS ORDERED: ACETAMINOPHEN IV (For NPO) 1,000 MG in EMPTY BAG 1 BAG IVPB STA (20:08)
[2020-07-01] MEDS ORDERED: IBUPROFEN IV 800 MG in SODIUM CHLORIDE 0.9% 250 ML IV ONE (20:08)
--- NOTE | 2020-07-01 20:11 | XR ---
EXAMINATION TYPE: XR chest 1V DATE OF EXAM: 07/01/2020 COMPARISON: Today HISTORY: Fever TECHNIQUE: FINDINGS: There is no heart failure nor confluent pneumonic infiltrate. There is slight increased mar kings at the left lung base. There are no hilar masses. There is surgery at the right lung apex. Ther e is no pleural effusion. Heart size is normal. IMPRESSION: Minimal subsegmental atelectasis left lung base. No significant change overall compared t o exam earlier today.
[2020-07-01] MEDS: ATORVASTATIN 80 MG TAB PO SCH (20:38)
[2020-07-01] MEDS ORDERED: hydrALAZINE HCL 20 MG/ML 1 ML VIAL IVP STA (21:29)
[2020-07-01] MEDS: cloNIDine 0.3 MG/24HR PATCH TRANSDERM SCH (22:10)
[2020-07-01] MEDS ORDERED: hydrALAZINE HCL 20 MG/ML 1 ML VIAL IVP PRN (23:54)
[2020-07-02 00:46] LABS: Appearance,Urine Clear (Clear); Bilirubin,Urine Negative (Negative); Blood,Urine Moderate (Negative); Color,Urine Yellow; Glucose,Urine (UA) 3+ (Negative); Ketones,Urine Negative (Negative); Leukocyte Esterase,Urine Trace (Negative); Mucus,Urine Rare /hpf; Nitrite,Urine Negative (Negative); PH, Urine 8.5 (5.0-8.0); Protein,Urine 3+ (Negative); RBC,Urine 32 /hpf (0-5); Squamous Epithelial Cell,Urine <1 /hpf (0-4); Urobilinogen,Urine <2.0 mg/dL (<2.0); WBC,Urine 52 /hpf (0-5)
[2020-07-02 00:58] LABS: Amphetamine Screen,Urine Not Detected (NotDetected); Barbiturate Screen,Urine Not Detected (NotDetected); Benzodiazepines Screen,Urine Not Detected (NotDetected); Cocaine Screen,Urine Not Detected (NotDetected); Methadone Screen, Urine Not Detected (NotDetected); Opiate Screen,Urine Detected (NotDetected); Oxycodone Screen, Urine Not Detected (NotDetected); Phencyclidine Screen,Urine Not Detected (NotDetected); Tricyclic Antidepressant,Urine Not Detected (NotDetected); Urn Cannabinoid Scrn Not Detected (NotDetected)
[2020-07-02] MEDS: SODIUM CHLORIDE 0.9% 1,000 ML IV SCH ×2 (05:07→12:26)
[2020-07-02 06:13] LABS: Glucose,Whole Blood 167 mg/dL (75-99)
[2020-07-02 08:31] LABS: C Reactive Protein 23.4 mg/L (<10.0)
[2020-07-02] MEDS: ASPIRIN 81 MG PO SCH (11:00)
[2020-07-02] MEDS: ATORVASTATIN 80 MG TAB PO SCH (11:00)
[2020-07-02] MEDS ORDERED: VANCOMYCIN IV PER PHARMACY 1 EACH MISC MISCELLANE PRN (11:53)
[2020-07-02 11:58] LABS: Glucose,Whole Blood 136 mg/dL (75-99)
[2020-07-02] MEDS ORDERED: LABETALOL 5 MG/ML VIAL MDV IVP SCH (12:00)
[2020-07-02 12:27] LABS: Appearance,Urine Cloudy (Clear); Bacteria,Urine Rare /hpf; Bilirubin,Urine Negative (Negative); Blood,Urine Moderate (Negative); Color,Urine Yellow; Glucose,Urine (UA) 2+ (Negative); Ketones,Urine Negative (Negative); Leukocyte Esterase,Urine Moderate (Negative); Mucus,Urine Occasional /hpf; Nitrite,Urine Negative (Negative); Protein,Urine 3+ (Negative); RBC,Urine 20 /hpf (0-5); Specific Gravity,Urine 1.043 (1.001-1.035); Squamous Epithelial Cell,Urine 4 /hpf (0-4); Urobilinogen,Urine <2.0 mg/dL (<2.0); WBC,Urine >182 /hpf (0-5)
[2020-07-02] MEDS ORDERED: ACYCLOVIR SODIUM 500 MG in SODIUM CHLORIDE 0.9% 100 ML IVPB ONE (12:30)
[2020-07-02] MEDS ORDERED: VANCOMYCIN 1,500 MG in SODIUM CHLORIDE 0.9% 250 ML IVPB ONE (13:00)
--- NOTE | 2020-07-02 14:21 | ECHOF ---
Referral Reason:stroke MEASUREMENTS -------- HEIGHT: 157.5 cm WEIGHT: 89.4 kg BP: 145/65 RVIDd: 3.8 cm (< 3.3) IVSd: 1.7 cm (0.6 - 1.1) LVIDd: 3.9 cm (3.9 - 5.3) LVPWd: 1.4 cm (0.6 - 1.1) IVSs: 2.1 cm LVIDs: 2.7 cm LVPWs: 2.2 cm LAESV Index (A-L): 24.31 ml/m Ao Diam: 3.3 cm (2.0 - 3.7) AV Cusp: 1.9 cm (1.5 - 2.6) MV EXCURSION: 13.189 mm (> 18.000) MV EF SLOPE: 92 mm/s (70 - 150) EPSS: 1.0 cm MV E Benjamin: 1.11 m/s MV DecT: 215 ms MV A Benjamin: 1.17 m/s MV E/A Ratio: 0.95 RAP: 5.00 mmHg RVSP: 24.14 mmHg FINDINGS -------- This was a technically adequate study. The left ventricular size is normal. There is moderate concentric left ventricular hypertrophy. O verall left ventricular systolic function is normal with, an EF between 55 - 60 %. The diastolic fi lling pattern is normal for the age of the patient 20.30. The right ventricle is mildly enlarged. Normal LA size by volume 22+/-6 ml/m2. The right atrial size is normal. Interatrial and interventricular septum intact. The aortic valve is trileaflet and appears structurally normal. There is no evidence of aortic regu rgitation. There is no evidence of aortic stenosis. Mild mitral regurgitation is present. Mild tricuspid regurgitation present. There is no evidence of pulmonary hypertension. The right v entricular systolic pressure, as measured by Doppler, is 24.14mmHg. There is no pulmonic regurgitation present. The aortic root size is normal. Normal inferior vena cava with normal inspiratory collapse consistent with estimated right atrial pre ssure of 5 mmHg. There is no pericardial effusion. CONCLUSIONS -------- 1. The left ventricular size is normal. 2. There is moderate concentric left ventricular hypertrophy. 3. Overall left ventricular systolic function is normal with, an EF between 55 - 60 %. 4. The diastolic filling pattern is normal for the age of the patient 20.30 5. The right ventricle is mildly enlarged. 6. Mild mitral regurgitation is present. 7. Mild tricuspid regurgitation present. CAD TECHNICIAN: Charlee Anguiano RDCS
--- NOTE | 2020-07-02 14:52 | CONS ---
CONSULTATION REASON FOR CONSULT: End-stage renal disease. HISTORY OF PRESENT ILLNESS: Patient is a 74-year-old female with end-stage renal disease on hemodialysis on a Saturday, Saturday, Saturday schedule. Patient was sent in from the Dialysis Unit as she became hypotensive and was complaining of chest pain. The patient was also noted to have significant change in her mentation when she was sent into the ER. The patient did get a fluid bolus. Her blood pressure improved, however, mentation did not improve. She had a CAT scan done yesterday which did not show any significant findings. She also had a CT angiogram which did not reveal any major abnormalities. PAST MEDICAL HISTORY: CHF, type 2 diabetes, gastroesophageal reflux disease, hypertension, end-stage renal disease, diabetic retinopathy, diabetic neuropathy, history of urinary tract infection, history of left breast cancer status post lumpectomy, no chemo radiation therapy; history of cataract surgery, lens implants, tonsillectomy, tubal ligation, cholecystectomy, . SOCIAL HISTORY: Patient is a former smoker. No history of drug abuse or alcohol abuse. MEDICATIONS: Medications prior to admission included Protonix, Femara, Tylenol, vitamin D3, singulair, Lipitor, Eliquis, Tylenol, Cymbalta, Imodium, Claritin, milk of magnesia, melatonin, midodrine, Senna, Gas-X, Tenormin. ALLERGIES: Include PENICILLIN, which causes rash and hives. Patient is patient is comfortable. She did open her eyes but she is not communicating. She is not saying much at this time. I am not sure if she recognizes me. PHYSICAL EXAMINATION: On examination, blood pressure was 172/73, heart rate 84 per minute, she is afebrile. She did have a temp of 100.4 degrees Fahrenheit and as high as 103.5 on 07/01/2020. Examination of the heart S1, S2. Examination of the lungs, decreased breath sounds at bases. Abdomen is soft, nontender. Examination of lower extremities shows no significant edema. Chronic skin changes noted. M[employer] exam cannot be performed, patient is not following commands or talking. LAB: Show UA which shows more than 182 WBCs, 3+ protein glucose. There was blood noted as well. Sodium 136, potassium 3.8, serum creatinine 2.59, hemoglobin 13.1 g/dL. ASSESSMENT: 1. End-stage renal disease, on hemodialysis on a Saturday, Saturday, Saturday schedule. Since patient could not get her treatment yesterday we will dialyze her today. 2. Aphasia with decreased movement of the left upper extremity with concern for acute stroke with CT being negative, being followed by Neurology. 3. Recent positive Covid test followed by a negative test x2. 4. Hypertension, currently uncontrolled with episode of hypotension earlier yesterday at dialysis. 5. History of breast cancer status post lumpectomy. 6. Chronic kidney disease mineral bone disorder. 7. Fever, rule out sepsis. Urine appears to have an underlying urinary tract infection. Patient is maintained on antibiotics. She got a dose of Rocephin and vancomycin. PLAN: Hemodialysis today. DC IV fluids. Continue with IV medications to bring down the blood pressure. If her blood pressure remains elevated she may need to start Cleviprex drip. Continue empiric antibiotics. Follow up on cultures. Thank you for this consultation. Will continue to follow the patient with you during her hospitalization. MMTIFFANIEL / IJN: [id number] /
[2020-07-02] MEDS ORDERED: HEPARIN SODIUM,PORCINE 5,000 UNIT/ML 1 ML VIAL SQ SCH ×2 (16:00→21:00)
--- NOTE | 2020-07-02 16:01 | P.HPIM ---
History of Present Illness this is a pleasant 74 years old female with past medical history of end-stage renal disease on hemodialysis, diabetes mellitus, GERD, hypertension, hyperlipidemia, osteoarthritis, history of left breast cancer, right eye diabetic retinopathy, with vision problems, history of pneumonia, chronic heart failure. Patient could not provide information so it was obtained from staff and medical records. No family at bedside, family was tried to be contacted with no success. patient presents because of altered mental status and she has a fever on admission. Patient was transferred from [facility] for decreased alertness and seizure is suspected. Neurologist evaluated the patient and recommended MRI of the brain when patient is more stable, EEG is also is recommended as well as telemetry, PT/OT start/SLT, check echocardiogram and TSH Chest x-ray was negative, CT of the head and neck was unremarkable, brain CT showed no acute processes, EKG showing normal sinus rhythm. Patient was started on ceftriaxone and normocephalic 100 mL per hour which was is top normal. Her blood pressure was elevated and she was started on clonidine 0.3 mg, no paternal is added and her blood pressure is better controlled down to 118/66. Also she has hydralazine as needed. Patient underwent hemodialysis today Patient is provided with 1 dose of vancomycin pharmacy to dose, 1 dose of acyclovir, continue with Rocephin. Consult infectious disease . Urine analysis suspicious for UTI infection, culture is pending Review of Systems N/a, patient is obtunded Past Medical History Past Medical History: Cancer, Heart Failure, Diabetes Mellitus, Eye Disorder, GERD/Reflux, Hyperlipidemia, Hypertension, Osteoarthritis (OA), Pneumonia, Renal Disease Additional Past Medical History / Comment(s): HX OF LEFT BREAST CANCER- SX.NEUROPATHY FEET, HANDS, RT EYE DIABETIC RETINOPATHY, STATES LITTLE VISION, HAD A PNE VACCINE NOT SURE OF DATE, HX pulled from previous visit History of Any Multi-Drug Resistant Organisms: None Reported Past Surgical History: Section, Cholecystectomy, Tonsillectomy, Tubal Ligation Additional Past Surgical History / Comment(s): LEFT BREAST LUMPECTOMY- no chemo, no radiation but took hormone pills, D&C, GERSON CATARACT SX-LENS IMPLANTS. Past Anesthesia/Blood Transfusion Reactions: Previous Problems w/ Anesthesia Additional Past Anesthesia/Blood Transfusion Reaction / Comment(s): STATED "TOOK A LONG TIME WAKING UP FROM ANESTHESIA" Past Psychological History: No Psychological Hx Reported Smoking Status: Former smoker Past Alcohol Use History: None Reported Additional Past Alcohol Use History / Comment(s): SMOKED 1958 AND QUIT 1962 SMOKED Past Drug Use History: None Reported - Past Family History Mother Family Medical History: No Reported History Brother(s) Family Medical History: Diabetes Mellitus Medications and Allergies Home Medications Medication Instructions Recorded Confirmed Type Pantoprazole Sodium [Protonix] 40 mg PO DAILY@0600 02/05/14 07/01/20 History Letrozole [Femara] 2.5 mg PO DAILY@0700 07/31/18 07/01/20 History Acetaminophen Tab [Tylenol] 325 mg PO HS@2100 08/13/18 07/01/20 History Cholecalciferol (Vitamin D3) 2,000 unit PO DAILY@1200 08/13/18 07/01/20 History [Vitamin D3] Atorvastatin [Lipitor] 10 mg PO HS@2100 09/24/18 07/01/20 History Acetaminophen [Tylenol] 650 mg PO Q6H PRN 06/19/20 07/01/20 History Benzocaine/Menthol Lozeng [Cepacol 1 lozenge MUCOUS MEM Q6H PRN 06/19/20 07/01/20 History lozenge] DULoxetine HCL [Cymbalta] 30 mg PO DAILY@69906/19/20 07/01/20 History Fluticasone Propionate [Flonase 1 spray EA NOSTRIL DAILY@0706/19/20 07/01/20 History Allergy Relief] HYDROcodone/APAP 5-325MG [[place] 1 tab PO Q6HR PRN 06/19/20 07/01/20 History 5-325] Insulin Glargine,Hum.rec.anlog 10 unit SQ HS@209906/19/20 07/01/20 History [Lantus Solostar] Lidocaine-Prilocaine Cream [Emla 1 applic TOPICAL MOWEFR 06/19/20 07/01/20 History Cream 2.5%/2.5%] Loperamide [Imodium] 2 mg PO Q1H PRN 06/19/20 07/01/20 History Loratadine [Claritin] 10 mg PO Q48H 06/19/20 07/01/20 History Magnesium Hydroxide [Milk of 7,200 mg PO DAILY PRN 06/19/20 07/01/20 History Magnesia Concentrate] Melatonin 5 mg PO MOWEFR 06/19/20 07/01/20 History Midodrine [ProAmatine] 5 mg PO MOWEFR 06/19/20 07/01/20 History Bailey-3 Fatty Acids/Fish Oil [Fish 1 cap PO DAILY@1200 06/19/20 07/01/20 History Oil 1,000 mg Softgel] Sennosides [Senna] 17.2 mg PO DAILY@1200 06/19/20 07/01/20 History Sevelamer [Renvela] 800 mg PO TID@0700,1200,1700 06/19/20 07/01/20 History Simethicone [Gas-X] 125 mg PO TID@0500,1300,2100 06/19/20 07/01/20 History atenoloL [Tenormin] 50 mg PO DAILY@1700 06/19/20 07/01/20 History guaiFENesin [Diabetic Tussin Ex] 200 mg PO Q4HR PRN 06/19/20 07/01/20 History Apixaban [Eliquis] 2.5 mg PO BID@0700,1700 07/01/20 07/01/20 History Montelukast [Singulair] 10 mg PO HS@2100 07/01/20 07/01/20 History Allergies Allergy/AdvReac Type Severity Reaction Status Date / Time Penicillins Allergy Rash/Hives Verified 07/01/20 21:11 Physical Exam Vitals: Vital Signs Temp Pulse Pulse Pulse Resp BP BP 07/02/20 15:00 100.6 F H 76 18 118/66 07/02/20 14:42 86 18 07/02/20 14:14 07/02/20 12:12 100.4 F H 81 18 07/02/20 08:28 99.0 F 84 84 18 172/73 172/73 07/02/20 04:00 100.9 F H 88 16 145/65 07/02/20 00:00 100.9 F H 92 18 172/70 07/01/20 23:08 101.0 F H 94 20 184/79 07/01/20 22:26 97 20 201/84 07/01/20 22:21 98 24 133/80 07/01/20 22:16 101.3 F H 98 23 202/86 07/01/20 21:26 103.5 F H 98 24 222/93 07/01/20 20:38 101 H 23 224/95 07/01/20 19:56 103.2 F H 100 20 243/96 07/01/20 19:28 241/59 07/01/20 19:10 102.1 F H 95 18 241/85 07/01/20 18:13 98.6 F 97 18 223/93 07/01/20 17:50 16 07/01/20 17:26 91 18 216/93 07/01/20 16:00 87 18 147/116 BP Pulse Ox 07/02/20 15:00 98 07/02/20 14:42 201/97 07/02/20 14:14 169/90 07/02/20 12:12 193/81 2 L 07/02/20 08:28 100 07/02/20 04:00 98 07/02/20 00:00 100 07/01/20 23:08 99 07/01/20 22:26 97 07/01/20 22:21 98 07/01/20 22:16 97 07/01/20 21:26 99 07/01/20 20:38 95 07/01/20 19:56 96 07/01/20 19:28 07/01/20 19:10 98 07/01/20 18:13 97 07/01/20 17:50 07/01/20 17:26 96 07/01/20 16:00 94 L Intake and Output 07/02/20 07/02/20 07/02/20 06:59 14:59 22:59 Intake Total 400 0 Output Total 100 2500 Balance 300 -2500 Intake: Intake, IV Titration 400 Amount Sodium Chloride 0.9% 1, 400 000 ml @ 100 mls/hr IV . Q10H [facility] Rx#:[id number] Oral 0 0 Output: Urine 100 Hemodialysis 2500 Other: Voiding Method Indwelling Catheter Indwelling Catheter # Voids 1 0 Weight 89.5 kg -GENERAL: The patient is obtunded and could not answer questions or follow commands. Obese HEENT: Pupils are round and equally reacting to light. EOMI. No scleral icterus. No conjunctival pallor. Normocephalic, atraumatic. No pharyngeal erythema. No thyromegaly. CARDIOVASCULAR: S1 and S2 present. No murmurs, rubs, or gallops. PULMONARY: Chest is clear to auscultation, no wheezing or crackles. ABDOMEN: Soft, nontender, nondistended, normoactive bowel sounds. No palpable organomegaly. MUSCULOSKELETAL: No joint swelling or deformity. EXTREMITIES: No cyanosis, clubbing, or pedal edema. NEUROLOGICAL: Gross neurological examination did not reveal any focal deficits. SKIN: No rashes. no petechiae. Results CBC & Chem 7: 07/01/20 15:51 07/01/20 15:51 Labs: Abnormal Lab Results - Last 24 Hours (Table) 07/01/20 07/01/20 07/01/20 Range/Units 00:25 15:51 15:51 WBC 12.0 H (3.8-10.6) k/uL Neutrophils # 10.6 H (1.3-7.7) k/uL Lymphocytes # 0.9 L (1.0-4.8) k/uL Sodium 136 L (137-145) mmol/L Chloride 93 L (98-107) mmol/L Carbon Dioxide 33 H (22-30) mmol/L Creatinine 2.59 H (0.52-1.04) mg/dL Glucose 205 H (74-99) mg/dL POC Glucose (mg/dL) (75-99) mg/dL Alkaline Phosphatase 144 H (38-126) U/L C-Reactive Protein (<10.0) mg/L Triglycerides (<150) mg/dL HDL Cholesterol (40-60) mg/dL Urine Appearance (Clear) Urine pH 8.5 H (5.0-8.0) Ur Specific [place] 1.040 H (1.001-1.035) Urine Protein 3+ H (Negative) Urine Glucose (UA) 3+ H (Negative) Urine Blood Moderate H (Negative) Ur Leukocyte Esterase Trace H (Negative) Urine RBC 32 H (0-5) /hpf Urine WBC 52 H (0-5) /hpf Urine WBC Clumps (None) /hpf Urine Bacteria (None) /hpf Urine Mucus Rare H (None) /hpf Urine Opiates Screen Detected H (NotDetected) 07/01/20 07/02/20 07/02/20 Range/Units 17:00 06:11 07:49 WBC (3.8-10.6) k/uL Neutrophils # (1.3-7.7) k/uL Lymphocytes # (1.0-4.8) k/uL Sodium (137-145) mmol/L Chloride (98-107) mmol/L Carbon Dioxide (22-30) mmol/L Creatinine (0.52-1.04) mg/dL Glucose (74-99) mg/dL POC Glucose (mg/dL) 167 H (75-99) mg/dL Alkaline Phosphatase (38-126) U/L C-Reactive Protein 23.4 H (<10.0) mg/L Triglycerides 435 H 267 H (<150) mg/dL HDL Cholesterol 34 L 29 L (40-60) mg/dL Urine Appearance (Clear) Urine pH (5.0-8.0) Ur Specific [place] (1.001-1.035) Urine Protein (Negative) Urine Glucose (UA) (Negative) Urine Blood (Negative) Ur Leukocyte Esterase (Negative) Urine RBC (0-5) /hpf Urine WBC (0-5) /hpf Urine WBC Clumps (None) /hpf Urine Bacteria (None) /hpf Urine Mucus (None) /hpf Urine Opiates Screen (NotDetected) 07/02/20 07/02/20 Range/Units 11:54 12:10 WBC (3.8-10.6) k/uL Neutrophils # (1.3-7.7) k/uL Lymphocytes # (1.0-4.8) k/uL Sodium (137-145) mmol/L Chloride (98-107) mmol/L Carbon Dioxide (22-30) mmol/L Creatinine (0.52-1.04) mg/dL Glucose (74-99) mg/dL POC Glucose (mg/dL) 136 H (75-99) mg/dL Alkaline Phosphatase (38-126) U/L C-Reactive Protein (<10.0) mg/L Triglycerides (<150) mg/dL HDL Cholesterol (40-60) mg/dL Urine Appearance Cloudy H (Clear) Urine pH (5.0-8.0) Ur Specific [place] 1.043 H (1.001-1.035) Urine Protein 3+ H (Negative) Urine Glucose (UA) 2+ H (Negative) Urine Blood Moderate H (Negative) Ur Leukocyte Esterase Moderate H (Negative) Urine RBC 20 H (0-5) /hpf Urine WBC >182 H (0-5) /hpf Urine WBC Clumps Moderate H (None) /hpf Urine Bacteria Rare H (None) /hpf Urine Mucus Occasional H (None) /hpf Urine Opiates Screen (NotDetected) Microbiology - Last 24 Hours (Table) 07/01/20 00:25 Urine Culture - Preliminary Urine,Clean Catch Thrombosis Risk Factor Assmnt - Choose All That Apply Any of the Below Risk Factors Present?: Yes Each Factor Represents 1 point: Obesity (BMI >25) Other Risk Factors: Yes Each Risk Factor Represents 2 Points: Patient confined to bed Each Risk Factor Represents 3 Points: Age 75 years or older Other congenital or acquired thrombophilia - If yes, enter type in comment: No Thrombosis Risk Factor Assessment Total Risk Factor Score: 6 Thrombosis Risk Factor Assessment Level: High Risk Assessment and Plan Assessment: sepsis of unknown source, possible UTI. End-stage renal disease on hemodialysis hypertension with urgency type 2 diabetes mellitus GERD Hyperlipidemia Osteoarthritis History of left breast cancer right eye diabetic retinopathy, with vision problems Plan: Continue with antibiotics as above and consult infectious disease team. Discontinue out normal saline Continue with the clonidine and labetalol when necessary and hydralazine when necessary and monitor blood pressure closely, discussed with the staff Follow-up recommendation by neurology, nephrology and infectious disease. Continue with hemodialysis as per nephrology team recommendation DVT prophylaxis, subcutaneous heparin GI prophylaxis: Pepcid Prognosis is guarded
--- NOTE | 2020-07-02 16:04 | XR ---
EXAMINATION TYPE: XR chest 1V portable DATE OF EXAM: 07/02/2020 COMPARISON: 07/01/2020 HISTORY: Pneumonia TECHNIQUE: FINDINGS: There is some minimal pleural reaction right lung base.. There is no heart failure. Heart s ize is normal. There are no hilar masses. IMPRESSION: There is some mild pleural reaction and atelectasis at the right lung base that appears n ew compared to yesterday. No heart failure seen. No pulmonary consolidation.
[2020-07-02] MEDS ORDERED: ACETAMINOPHEN SUPPOSITORY 650 MG SUPP RECTAL PRN (16:05)
[2020-07-02] MEDS: LABETALOL 5 MG/ML VIAL MDV IVP SCH ×2 (16:06→23:30)
[2020-07-02] MEDS: FAMOTIDINE 20 MG/2 ML VIAL IV SCH (16:23)
--- NOTE | 2020-07-02 17:16 | CT ---
EXAMINATION TYPE: CT brain wo con DATE OF EXAM: 07/02/2020 COMPARISON: Yesterday HISTORY: CVA CT DLP: 1092.4 mGycm Automated exposure control for dose reduction was used. There is cerebral cortical atrophy. There is hypodensity in the periventricular white matter. There i s no mass effect nor midline shift. There is no sign of intracranial hemorrhage. The calvarium is int act. There is mild enlargement of the ventricles. IMPRESSION: Cerebral atrophy and mild chronic small vessel ischemia. No change compared to yesterday.
[2020-07-02 17:19] LABS: Glucose,Whole Blood 146 mg/dL (75-99)
--- NOTE | 2020-07-02 17:58 | P.PN ---
Subjective Progress Note Date: 07/02/20 The patient is a 74-year-old female who is seen in neurologic follow- up on July 02, 2020 via teleneurology. The patient was admitted to the hospital yesterday, when she presented with mental status changes, aphasia and right sunny-neglect. CT scan the brain revealed no signs of acute hemorrhage or infarct. CT angiogram revealed no signs of large vessel occlusion. The patient apparently did not receive TPA because of unknown, last known well time. The patient herself is unable to provide any history. According to her nurse, the patient has been able to state her name, today. She apparently is not following any commands. Objective - Vital Signs Vital signs: Vital Signs Temp 101.9 F H 07/02/20 16:28 Pulse 60 07/02/20 16:28 Resp 18 07/02/20 16:28 BP 151/67 07/02/20 16:28 Pulse Ox 95 07/02/20 16:28 Intake & Output 07/01/20 07/02/20 07/02/20 18:59 06:59 18:59 Intake Total 400 0 Output Total 100 2500 Balance 300 -2500 Weight 90.718 kg 89.5 kg Intake: Intake, IV Titration 400 Amount Sodium Chloride 0.9% 1, 400 000 ml @ 100 mls/hr IV . Q10H [facility] Rx#:[id number] Oral 0 0 Output: Urine 100 Hemodialysis 2500 Other: Voiding Method Indwelling Catheter Indwelling Catheter # Voids 1 0 - Exam General: The patient is reclining in the bed. She is in no acute distress. HEENT: Head is atraumatic, normocephalic. Fundus not visualized. There is no scleral icterus. Neurological examination Mental status: The patient is nonverbal. She does follow some simple commands, such as lifting her left upper extremity. Cranial nerves: Pupils are equal, round and reactive to light. Blink to visual threat is inconsistent. The patient does not follow instructions for extrao cular movement testing. There is noted to be a left facial droop. Motor: Patient is able to raise her left upper extremity. With assistance, she is able to hold her right upper extremity up. The patient is observed lifting her left lower extremity and crossing it over her right. There is increased tone in the lower extremities, right greater than left. There is myoclonic jerking of the right upper extremity, as well, there are mild myoclonic movements the left upper extremity. Deep tendon reflexes: Diminished in the upper extremities. Bilateral patellar reflexes 3+/4+. Plantar response is extensor on the right and flexor on the left. - Labs CBC & Chem 7: 07/01/20 15:51 07/01/20 15:51 Labs: Abnormal Lab Results - Last 24 Hours (Table) 07/01/20 07/01/20 07/02/20 Range/Units 00:25 17:00 06:11 POC Glucose (mg/dL) 167 H (75-99) mg/dL C-Reactive Protein (<10.0) mg/L Triglycerides 435 H (<150) mg/dL HDL Cholesterol 34 L (40-60) mg/dL Urine Appearance (Clear) Urine pH 8.5 H (5.0-8.0) Ur Specific [place] 1.040 H (1.001-1.035) Urine Protein 3+ H (Negative) Urine Glucose (UA) 3+ H (Negative) Urine Blood Moderate H (Negative) Ur Leukocyte Esterase Trace H (Negative) Urine RBC 32 H (0-5) /hpf Urine WBC 52 H (0-5) /hpf Urine WBC Clumps (None) /hpf Urine Bacteria (None) /hpf Urine Mucus Rare H (None) /hpf Urine Opiates Screen Detected H (NotDetected) 07/02/20 07/02/20 07/02/20 Range/Units 07:49 11:54 12:10 POC Glucose (mg/dL) 136 H (75-99) mg/dL C-Reactive Protein 23.4 H (<10.0) mg/L Triglycerides 267 H (<150) mg/dL HDL Cholesterol 29 L (40-60) mg/dL Urine Appearance Cloudy H (Clear) Urine pH (5.0-8.0) Ur Specific [place] 1.043 H (1.001-1.035) Urine Protein 3+ H (Negative) Urine Glucose (UA) 2+ H (Negative) Urine Blood Moderate H (Negative) Ur Leukocyte Esterase Moderate H (Negative) Urine RBC 20 H (0-5) /hpf Urine WBC >182 H (0-5) /hpf Urine WBC Clumps Moderate H (None) /hpf Urine Bacteria Rare H (None) /hpf Urine Mucus Occasional H (None) /hpf Urine Opiates Screen (NotDetected) 07/02/20 Range/Units 17:16 POC Glucose (mg/dL) 146 H (75-99) mg/dL C-Reactive Protein (<10.0) mg/L Triglycerides (<150) mg/dL HDL Cholesterol (40-60) mg/dL Urine Appearance (Clear) Urine pH (5.0-8.0) Ur Specific [place] (1.001-1.035) Urine Protein (Negative) Urine Glucose (UA) (Negative) Urine Blood (Negative) Ur Leukocyte Esterase (Negative) Urine RBC (0-5) /hpf Urine WBC (0-5) /hpf Urine WBC Clumps (None) /hpf Urine Bacteria (None) /hpf Urine Mucus (None) /hpf Urine Opiates Screen (NotDetected) Microbiology - Last 24 Hours (Table) 07/01/20 00:25 Urine Culture - Preliminary Urine,Clean Catch Assessment and Plan Assessment: 1. The patient's neurological examination is consistent with cerebral infarct, involving the left middle cerebral artery territory 2. History of hypertension 3. History of diabetes mellitus 4. History of coronary artery disease 5. History of CHF Plan: 1. Stat CT scan the brain looking for signs of hemorrhage or edema 2. Will order MRI of brain 3. Stroke workup, including 2-D echocardiogram, lipid panel, hemoglobin A1c, PT, OT and speech therapy evaluations 4. Continue aspirin 81 mg at this time Time with Patient: Greater than 30 (spent 45 minutes with patient via telen eurology)
[2020-07-02 20:15] LABS: Glucose,Whole Blood 125 mg/dL (75-99)
[2020-07-02] MEDS: HEPARIN SODIUM,PORCINE 5,000 UNIT/ML 1 ML VIAL SQ SCH (21:28)
[2020-07-03 06:23] LABS: Glucose,Whole Blood 139 mg/dL (75-99)
--- NOTE | 2020-07-03 06:58 | P.CONS ---
History of Present Illness - Reason for Consult Consult date: 07/02/20 Fever Requesting physician: Willian E Sheet - Chief Complaint Mental status changes x one day - History of Present Illness Patient is 74 year old female with a past medical history significant for end-stage renal disease on hemodialysis tablet of his colitis and history of left breast cancer patient was transferred from [facility] for evaluation of mental status changes apparently the patient went to dialysis yesterday and about 15 minutes prior to finishing the dialysis patient become hypertensive and was complaining of some chest pain patient did have a fluid bolus and was subsequently taken to the local [facility] patient subsequently has been transferred to [facility] for further evaluation, on arrival to the ER initially patient was afebrile subsequent to spike a fever of 103F patient did have elevated white count of 12,000, patient did have a normal liver enzymes she did have a cloudy urine with moderate insight history is more than 100 WBC, elevated CRP as well as pro-calcitonin, patient did have minimal atelectasis on the chest x-ray, patient has been treated with vancomycin and Rocephin infectious disease was consulted for further management of antibiotic therapy most of the information has been obtained from review the chart as the patient is currently nonverbal and did not provide any history, patient was undergoing dialysis and the patient did have a fistula for vascular access with no inflammation at that site but the dialysis nurse Review of Systems Positive points has been mentioned in HPI complete review could not be obtained because of his underlying mental status Past Medical History Past Medical History: Cancer, Heart Failure, Diabetes Mellitus, Eye Disorder, GERD/Reflux, Hyperlipidemia, Hypertension, Osteoarthritis (OA), Pneumonia, Renal Disease Additional Past Medical History / Comment(s): HX OF LEFT BREAST CANCER- SX.NEUROPATHY FEET, HANDS, RT EYE DIABETIC RETINOPATHY, STATES LITTLE VISION, HAD A PNE VACCINE NOT SURE OF DATE, HX pulled from previous visit History of Any Multi-Drug Resistant Organisms: None Reported Past Surgical History: Section, Cholecystectomy, Tonsillectomy, Tubal Ligation Additional Past Surgical History / Comment(s): LEFT BREAST LUMPECTOMY- no chemo, no radiation but took hormone pills, D&C, GERSON CATARACT SX-LENS IMPLANTS. Past Anesthesia/Blood Transfusion Reactions: Previous Problems w/ Anesthesia Additional Past Anesthesia/Blood Transfusion Reaction / Comm: STATED "TOOK A LONG TIME WAKING UP FROM ANESTHESIA" Past Psychological History: No Psychological Hx Reported Smoking Status: Former smoker Past Alcohol Use History: None Reported Additional Past Alcohol Use History / Comment(s): SMOKED 1958 AND QUIT 1962 SMOKED Past Drug Use History: None Reported - Past Family History Mother Family Medical History: No Reported History Brother(s) Family Medical History: Diabetes Mellitus Medications and Allergies Home Medications Medication Instructions Recorded Confirmed Type Pantoprazole Sodium [Protonix] 40 mg PO DAILY@0600 02/05/14 07/01/20 History Letrozole [Femara] 2.5 mg PO DAILY@0700 07/31/18 07/01/20 History Acetaminophen Tab [Tylenol] 325 mg PO HS@2100 08/13/18 07/01/20 History Cholecalciferol (Vitamin D3) 2,000 unit PO DAILY@1200 08/13/18 07/01/20 History [Vitamin D3] Atorvastatin [Lipitor] 10 mg PO HS@2100 09/24/18 07/01/20 History Acetaminophen [Tylenol] 650 mg PO Q6H PRN 06/19/20 07/01/20 History Benzocaine/Menthol Lozeng [Cepacol 1 lozenge MUCOUS MEM Q6H PRN 06/19/20 07/01/20 History lozenge] DULoxetine HCL [Cymbalta] 30 mg PO DAILY@0706/19/20 07/01/20 History Fluticasone Propionate [Flonase 1 spray EA NOSTRIL DAILY@0706/19/20 07/01/20 History Allergy Relief] HYDROcodone/APAP 5-325MG [Java 1 tab PO Q6HR PRN 06/19/20 07/01/20 History 5-325] Insulin Glargine,Hum.rec.anlog 10 unit SQ HS@209906/19/20 07/01/20 History [Lantus Solostar] Lidocaine-Prilocaine Cream [Emla 1 applic TOPICAL MOWEFR 06/19/20 07/01/20 History Cream 2.5%/2.5%] Loperamide [Imodium] 2 mg PO Q1H PRN 06/19/20 07/01/20 History Loratadine [Claritin] 10 mg PO Q48H 06/19/20 07/01/20 History Magnesium Hydroxide [Milk of 7,200 mg PO DAILY PRN 06/19/20 07/01/20 History Magnesia Concentrate] Melatonin 5 mg PO MOWEFR 06/19/20 07/01/20 History Midodrine [ProAmatine] 5 mg PO MOWEFR 06/19/20 07/01/20 History [place]-3 Fatty Acids/Fish Oil [Fish 1 cap PO DAILY@1200 06/19/20 07/01/20 History Oil 1,000 mg Softgel] Sennosides [Senna] 17.2 mg PO DAILY@1200 06/19/20 07/01/20 History Sevelamer [Renvela] 800 mg PO TID@0700,1200,1700 06/19/20 07/01/20 History Simethicone [Gas-X] 125 mg PO TID@0500,1300,2100 06/19/20 07/01/20 History atenoloL [Tenormin] 50 mg PO DAILY@1700 06/19/20 07/01/20 History guaiFENesin [Diabetic Tussin Ex] 200 mg PO Q4HR PRN 06/19/20 07/01/20 History Apixaban [Eliquis] 2.5 mg PO BID@0700,1700 07/01/20 07/01/20 History Montelukast [Singulair] 10 mg PO HS@2100 07/01/20 07/01/20 History Allergies Allergy/AdvReac Type Severity Reaction Status Date / Time Penicillins Allergy Rash/Hives Verified 07/01/20 21:11 Physical Exam Vitals: Vital Signs Temp Pulse Pulse Resp BP BP BP 07/02/20 14:14 169/90 07/02/20 12:12 100.4 F H 81 18 193/81 07/02/20 08:28 99.0 F 84 84 18 172/73 172/73 07/02/20 04:00 100.9 F H 88 16 145/65 07/02/20 00:00 100.9 F H 92 18 172/70 07/01/20 23:08 101.0 F H 94 20 184/79 07/01/20 22:26 97 20 201/84 07/01/20 22:21 98 24 133/80 07/01/20 22:16 101.3 F H 98 23 202/86 07/01/20 21:26 103.5 F H 98 24 222/93 07/01/20 20:38 101 H 23 224/95 07/01/20 19:56 103.2 F H 100 20 243/96 07/01/20 19:28 241/59 07/01/20 19:10 102.1 F H 95 18 241/85 07/01/20 18:13 98.6 F 97 18 223/93 07/01/20 17:50 16 07/01/20 17:26 91 18 216/93 07/01/20 16:00 87 18 147/116 07/01/20 15:48 16 07/01/20 15:30 87 18 219/89 07/01/20 15:04 98.4 F 80 18 149/84 Pulse Ox 07/02/20 14:14 07/02/20 12:12 2 L 07/02/20 08:28 100 07/02/20 04:00 98 07/02/20 00:00 100 07/01/20 23:08 99 07/01/20 22:26 97 07/01/20 22:21 98 07/01/20 22:16 97 07/01/20 21:26 99 07/01/20 20:38 95 07/01/20 19:56 96 07/01/20 19:28 07/01/20 19:10 98 07/01/20 18:13 97 07/01/20 17:50 07/01/20 17:26 96 07/01/20 16:00 94 L 07/01/20 15:48 07/01/20 15:30 94 L 07/01/20 15:04 93 L Intake and Output 07/01/20 07/02/20 07/02/20 22:59 06:59 14:59 Intake Total 400 0 Output Total 100 Balance 300 0 Intake: Intake, IV Titration 400 Amount Sodium Chloride 0.9% 1, 400 000 ml @ 100 mls/hr IV . Q10H [facility] Rx#:[id number] Oral 0 0 Output: Urine 100 Other: Voiding Method Indwelling Catheter Indwelling Catheter # Voids 1 0 Weight 90.718 kg 89.5 kg GENERAL DESCRIPTION: Elderly female lying in bed, no distress. No tachypnea or accessory muscle of respiration use. HEENT: Shows Pallor , no scleral icterus. Oral mucous membrane is dry. No pharyngeal erythema or thrush NECK: Trachea central, no thyromegaly. LUNGS: Unlabored breathing. Decreased breath sound at the base. No wheeze or crackle. HEART: S1, S2, regular rate and rhythm. No loud murmur ABDOMEN: Soft, no tenderness , guarding or rigidity, no organomegaly EXTREMITIES: No edema of feet. SKIN: No rash, no masses palpable. NEUROLOGICAL: The patient is awake, but nonverbal orientation could not be determined. Results CBC & Chem 7: 07/01/20 15:51 07/01/20 15:51 Labs: Abnormal Lab Results - Last 24 Hours (Table) 07/01/20 07/01/20 07/01/20 Range/Units 00:25 15:16 15:51 WBC 12.0 H (3.8-10.6) k/uL Neutrophils # 10.6 H (1.3-7.7) k/uL Lymphocytes # 0.9 L (1.0-4.8) k/uL Sodium (137-145) mmol/L Chloride (98-107) mmol/L Carbon Dioxide (22-30) mmol/L Creatinine (0.52-1.04) mg/dL Glucose (74-99) mg/dL POC Glucose (mg/dL) 195 H (75-99) mg/dL Alkaline Phosphatase (38-126) U/L C-Reactive Protein (<10.0) mg/L Triglycerides (<150) mg/dL HDL Cholesterol (40-60) mg/dL Urine Appearance (Clear) Urine pH 8.5 H (5.0-8.0) Ur Specific [place] 1.040 H (1.001-1.035) Urine Protein 3+ H (Negative) Urine Glucose (UA) 3+ H (Negative) Urine Blood Moderate H (Negative) Ur Leukocyte Esterase Trace H (Negative) Urine RBC 32 H (0-5) /hpf Urine WBC 52 H (0-5) /hpf Urine WBC Clumps (None) /hpf Urine Bacteria (None) /hpf Urine Mucus Rare H (None) /hpf Urine Opiates Screen Detected H (NotDetected) 07/01/20 07/01/20 07/02/20 Range/Units 15:51 17:00 06:11 WBC (3.8-10.6) k/uL Neutrophils # (1.3-7.7) k/uL Lymphocytes # (1.0-4.8) k/uL Sodium 136 L (137-145) mmol/L Chloride 93 L (98-107) mmol/L Carbon Dioxide 33 H (22-30) mmol/L Creatinine 2.59 H (0.52-1.04) mg/dL Glucose 205 H (74-99) mg/dL POC Glucose (mg/dL) 167 H (75-99) mg/dL Alkaline Phosphatase 144 H (38-126) U/L C-Reactive Protein (<10.0) mg/L Triglycerides 435 H (<150) mg/dL HDL Cholesterol 34 L (40-60) mg/dL Urine Appearance (Clear) Urine pH (5.0-8.0) Ur Specific [place] (1.001-1.035) Urine Protein (Negative) Urine Glucose (UA) (Negative) Urine Blood (Negative) Ur Leukocyte Esterase (Negative) Urine RBC (0-5) /hpf Urine WBC (0-5) /hpf Urine WBC Clumps (None) /hpf Urine Bacteria (None) /hpf Urine Mucus (None) /hpf Urine Opiates Screen (NotDetected) 07/02/20 07/02/20 07/02/20 Range/Units 07:49 11:54 12:10 WBC (3.8-10.6) k/uL Neutrophils # (1.3-7.7) k/uL Lymphocytes # (1.0-4.8) k/uL Sodium (137-145) mmol/L Chloride (98-107) mmol/L Carbon Dioxide (22-30) mmol/L Creatinine (0.52-1.04) mg/dL Glucose (74-99) mg/dL POC Glucose (mg/dL) 136 H (75-99) mg/dL Alkaline Phosphatase (38-126) U/L C-Reactive Protein 23.4 H (<10.0) mg/L Triglycerides 267 H (<150) mg/dL HDL Cholesterol 29 L (40-60) mg/dL Urine Appearance Cloudy H (Clear) Urine pH (5.0-8.0) Ur Specific [place] 1.043 H (1.001-1.035) Urine Protein 3+ H (Negative) Urine Glucose (UA) 2+ H (Negative) Urine Blood Moderate H (Negative) Ur Leukocyte Esterase Moderate H (Negative) Urine RBC 20 H (0-5) /hpf Urine WBC >182 H (0-5) /hpf Urine WBC Clumps Moderate H (None) /hpf Urine Bacteria Rare H (None) /hpf Urine Mucus Occasional H (None) /hpf Urine Opiates Screen (NotDetected) Microbiology - Last 24 Hours (Table) 07/01/20 00:25 Urine Culture - Preliminary Urine,Clean Catch Assessment and Plan Assessment: 1- patient presented to hospital with sepsis in this patient who did have a fever of 103F did have elevated white count source possible urinary versus pneumonia as his very hard to get any history from this patient in this patient seemed to have clinically responded to the initial antibiotic regime of vancomycin and Rocephin, patient abdominal soft and nontender examination no evidence of any neck rigidity or cellulitis at her dialysis access site (1) Pyelonephritis Current Visit: No Status: Acute Code(s): N12 - TUBULO-INTERSTITIAL NEPHRITIS, NOT SPCF ACUTE OR CHRONIC SNOMED Code(s): 95471259 (2) Sepsis Current Visit: No Status: Acute Code(s): A41.9 - SEPSIS, UNSPECIFIED ORGANISM SNOMED Code(s): 44339688 Plan: 1-Vancomycin pharmacy to dose target trough of 15 while watching kidney function and Vanco trough closely 2-Rocephin 1 g daily We will follow on clinical condition and cultures to further adjust medication if needed Thank you for this consultation will follow this patient with you Time with Patient: Greater than 30
[2020-07-03 08:32] LABS: Basophils # (A) 0.1 k/uL (0-0.2); Basophils % (A) 1 %; Eosinophils # (A) 0.1 k/uL (0-0.7); Eosinophils % (A) 1 %; HCT 32.6 % (34.0-46.0); HGB 10.4 gm/dL (11.4-16.0); Hypochromasia Slight; Lymphocytes # (A) 2.3 k/uL (1.0-4.8); Lymphocytes % (A) 16 %; MCH 30.1 pg (25.0-35.0); MCHC 31.8 g/dL (31.0-37.0); MCV 94.7 fL (80.0-100.0); Mean Platelet Volume 8.4; Monocytes # (A) 0.9 k/uL (0-1.0); Monocytes % (A) 7 %; Neutrophils # (A) 10.1 k/uL (1.3-7.7); Neutrophils % (A) 74 %; Platelet Count 162 k/uL (150-450); RBC 3.45 m/uL (3.80-5.40); RDW 14.6 % (11.5-15.5); WBC 13.7 k/uL (3.8-10.6)
[2020-07-03] MEDS: ATORVASTATIN 80 MG TAB PO SCH (08:35)
[2020-07-03] MEDS: ASPIRIN 81 MG PO SCH (08:35)
[2020-07-03] MEDS: LABETALOL 5 MG/ML VIAL MDV IVP SCH ×4 (08:37→23:23)
[2020-07-03] MEDS: HEPARIN SODIUM,PORCINE 5,000 UNIT/ML 1 ML VIAL SQ SCH (08:37)
[2020-07-03] MEDS: FAMOTIDINE 20 MG/2 ML VIAL IV SCH (08:37)
[2020-07-03 08:40] LABS: Bilirubin, Delta 0.4 mg/dL (0.0-0.2); Bilirubin,Unconjugated 0.1 mg/dL (0.0-1.1); Calcium 8.4 mg/dL (8.4-10.2); Magnesium 2.2 mg/dL (1.6-2.3); Potassium 3.5 mmol/L (3.5-5.1); Total Bilirubin 0.5 mg/dL (0.2-1.3); Total Protein 5.6 g/dL (6.3-8.2)
[2020-07-03 08:45] LABS: Vancomycin,Random 14.4 ug/mL
[2020-07-03 11:59] LABS: Glucose,Whole Blood 164 mg/dL (75-99)
[2020-07-03] MEDS ORDERED: VANCOMYCIN 1,500 MG in SODIUM CHLORIDE 0.9% 250 ML IVPB ONE (12:00)
[2020-07-03] MEDS ORDERED: BENZOCAINE/MENTHOL LOZENG 1 EACH LOZENGE MUCOUS MEM PRN (12:31)
--- NOTE | 2020-07-03 12:34 | P.PN ---
Subjective this is a pleasant 74 years old female with past medical history of end-stage renal disease on hemodialysis, diabetes mellitus, GERD, hypertension, hyperlipidemia, osteoarthritis, history of left breast cancer, right eye diabetic retinopathy, with vision problems, history of pneumonia, chronic heart failure. Patient could not provide information so it was obtained from staff and medical records. No family at bedside, family was tried to be contacted with no success. patient presents because of altered mental status and she has a fever on ad mission. Patient was transferred from [facility] for decreased alertness and seizure is suspected. Neurologist evaluated the patient and recommended MRI of the brain when patient is more stable, EEG is also is recommended as well as telemetry, PT/OT start/SLT, check echocardiogram and TSH Chest x-ray was negative, CT of the head and neck was unremarkable, brain CT showed no acute processes, EKG showing normal sinus rhythm. Patient was started on ceftriaxone and normocephalic 100 mL per hour which was is top normal. Her blood pressure was elevated and she was started on clonidine 0.3 mg, no paternal is added and her blood pressure is better controlled down to 118/66. Also she has hydralazine as needed. Patient underwent hemodialysis today Patient is provided with 1 dose of vancomycin pharmacy to dose, 1 dose of acyclovir, continue with Rocephin. Consult infectious disease . Urine analysis suspicious for UTI infection, culture is pending 07/03/2020 Patient is more awake and alert today she knows her name, she knows she is in the hospital in [place], however she could not tell their origin name of the president, she follow commands appropriately which is significantly improved compared to yesterday when she was attended. However patient still confused about why she was in the hospital and her symptoms prior to hospitalization. However patient looks calm. She denies any pain, no headache or chest pain or abdominal pain, no other specific complaints no more fever since yesterday.WBC is still slightly elevated at 13.7 K.urine analysis is suspicious for infection, she has Brunner catheter. Urine culture is pending. BMP is noted repeat brain CT yesterday was unremarkable for acute hemorrhage. Neurology on the case. Infectious disease team were consulted Echocardiogram showed ejection fraction of 55-60%. MRI of the brain is recommended by neurology team as well as EEG. postoperative her oral home medication Review of Systems N/a, patient is Confused Active Medications Generic Name Dose Route Start Last Admin Trade Name Freq PRN Reason Stop Dose Admin Acetaminophen 650 mg 07/02/20 16:05 07/02/20 16:59 Acetaminophen Suppository 650 Mg Supp RECTAL 650 mg Q6HR PRN Administration Fever and/ or Pain Aspirin 81 mg 07/02/20 09:00 07/03/20 08:35 Aspirin 81 Mg PO Not Given DAILY [facility] Atorvastatin Calcium 80 mg 07/01/20 17:30 07/03/20 08:35 Atorvastatin 80 Mg Tab PO Not Given DAILY [place] Clonidine HCl 1 patch 07/01/20 21:30 07/01/20 22:10 Clonidine 0.3 Mg/24hr Patch TRANSDERM 1 patch Q7D [place] Administration Famotidine 20 mg 07/02/20 16:15 07/03/20 08:37 Famotidine 20 Mg/2 Ml Vial IV 20 mg DAILY [place] Administration Heparin Sodium (Porcine) 5,000 unit 07/02/20 21:00 07/03/20 08:37 Heparin Sodium,Porcine 5,000 Unit/Ml 1 Ml Vial SQ 5,000 unit Q12HR [place] Administration Hydralazine HCl 10 mg 07/01/20 23:54 07/03/20 11:21 Hydralazine Hcl 20 Mg/Ml 1 Ml Vial IVP 10 mg Q6HR PRN Administration Blood Pressure - High Ceftriaxone Sodium 1 gm/ 50 mls @ 100 mls/hr 07/02/20 08:00 07/03/20 08:37 Sodium Chloride IVPB 100 mls/hr Q12H [place] Administration Vancomycin HCl 1,500 mg/ 250 mls @ 125 mls/hr 07/03/20 12:00 07/03/20 11:20 Sodium Chloride IVPB 07/03/20 13:59 125 mls/hr ONCE ONE Administration Labetalol HCl 10 mg 07/02/20 16:00 07/03/20 08:37 Labetalol 5 Mg/Ml Vial Mdv IVP 10 mg Q8HR [place] Administration Miscellaneous Information 1 each 07/02/20 11:53 Vancomycin Iv Per Pharmacy 1 Each Misc MISCELLANE DIRECTED PRN Per Protocol Protocol Objective - Vital Signs Vital signs: Vital Signs Temp 97.6 F 07/03/20 11:17 Pulse 81 07/03/20 11:17 Resp 18 07/03/20 11:17 BP 175/77 07/03/20 11:17 Pulse Ox 96 07/03/20 11:17 Intake & Output 07/02/20 07/03/20 07/03/20 18:59 06:59 18:59 Intake Total 0 0 Output Total 2550 110 Balance -2550 -110 Weight 83.5 kg Intake: Oral 0 0 Output: Urine 50 110 Uretheral (Brunner) 50 Hemodialysis 2500 Other: Voiding Method Indwelling Catheter Indwelling Catheter Indwelling Catheter # Voids 0 1 - Labs CBC & Chem 7: 07/03/20 08:05 07/03/20 08:05 Labs: Abnormal Lab Results - Last 24 Hours (Table) 07/02/20 07/02/20 07/02/20 Range/Units 07:49 12:10 17:16 WBC (3.8-10.6) k/uL RBC (3.80-5.40) m/uL Hgb (11.4-16.0) gm/dL Hct (34.0-46.0) % Neutrophils # (1.3-7.7) k/uL BUN (7-17) mg/dL Creatinine (0.52-1.04) mg/dL Glucose (74-99) mg/dL POC Glucose (mg/dL) 146 H (75-99) mg/dL Delta Bilirubin (0.0-0.2) mg/dL Total Protein (6.3-8.2) g/dL Albumin (3.5-5.0) g/dL Procalcitonin 0.89 H (0.02-0.09) ng/mL Urine Appearance Cloudy H (Clear) Ur Specific [place] 1.043 H (1.001-1.035) Urine Protein 3+ H (Negative) Urine Glucose (UA) 2+ H (Negative) Urine Blood Moderate H (Negative) Ur Leukocyte Esterase Moderate H (Negative) Urine RBC 20 H (0-5) /hpf Urine WBC >182 H (0-5) /hpf Urine WBC Clumps Moderate H (None) /hpf Urine Bacteria Rare H (None) /hpf Urine Mucus Occasional H (None) /hpf 07/02/20 07/03/20 07/03/20 Range/Units 20:13 06:21 08:05 WBC 13.7 H (3.8-10.6) k/uL RBC 3.45 L (3.80-5.40) m/uL Hgb 10.4 L (11.4-16.0) gm/dL Hct 32.6 L (34.0-46.0) % Neutrophils # 10.1 H (1.3-7.7) k/uL BUN (7-17) mg/dL Creatinine (0.52-1.04) mg/dL Glucose (74-99) mg/dL POC Glucose (mg/dL) 125 H 139 H (75-99) mg/dL Delta Bilirubin (0.0-0.2) mg/dL Total Protein (6.3-8.2) g/dL Albumin (3.5-5.0) g/dL Procalcitonin (0.02-0.09) ng/mL Urine Appearance (Clear) Ur Specific [place] (1.001-1.035) Urine Protein (Negative) Urine Glucose (UA) (Negative) Urine Blood (Negative) Ur Leukocyte Esterase (Negative) Urine RBC (0-5) /hpf Urine WBC (0-5) /hpf Urine WBC Clumps (None) /hpf Urine Bacteria (None) /hpf Urine Mucus (None) /hpf 07/03/20 07/03/20 Range/Units 08:05 11:54 WBC (3.8-10.6) k/uL RBC (3.80-5.40) m/uL Hgb (11.4-16.0) gm/dL Hct (34.0-46.0) % Neutrophils # (1.3-7.7) k/uL BUN 24 H (7-17) mg/dL Creatinine 3.83 H (0.52-1.04) mg/dL Glucose 141 H (74-99) mg/dL POC Glucose (mg/dL) 164 H (75-99) mg/dL Delta Bilirubin 0.4 H (0.0-0.2) mg/dL Total Protein 5.6 L (6.3-8.2) g/dL Albumin 3.0 L (3.5-5.0) g/dL Procalcitonin (0.02-0.09) ng/mL Urine Appearance (Clear) Ur Specific [place] (1.001-1.035) Urine Protein (Negative) Urine Glucose (UA) (Negative) Urine Blood (Negative) Ur Leukocyte Esterase (Negative) Urine RBC (0-5) /hpf Urine WBC (0-5) /hpf Urine WBC Clumps (None) /hpf Urine Bacteria (None) /hpf Urine Mucus (None) /hpf Microbiology - Last 24 Hours (Table) 07/01/20 00:25 Urine Culture - Final Urine,Clean Catch 07/02/20 12:10 Urine Culture - Preliminary Urine,Voided Assessment and Plan Assessment: sepsis of unknown source, possible UTI.rule out neurological or intracranial illness End-stage renal disease on hemodialysis hypertension with urgency type 2 diabetes mellitus GERD Hyperlipidemia Osteoarthritis History of left breast cancer right eye diabetic retinopathy, with vision problems Plan: Continue with antibiotics as above and consult infectious disease team. Continue with the clonidine and labetalol when necessary and hydralazine when necessary and monitor blood pressure closely, discussed with the staff Follow-up recommendation by neurology, nephrology and infectious disease. Continue with hemodialysis as per nephrology team recommendation resume her oral medication DVT prophylaxis, Eliquis GI prophylaxis: Pepcid Prognosis is guarded
--- NOTE | 2020-07-03 15:03 | PN ---
PROGRESS NOTE Patient is seen for followup for end-stage renal disease. She is maintained on a Saturday, Saturday, Saturday schedule for dialysis. The patient was admitted to the hospital with decreased mentation. There was concern regarding her not moving the right arm. Initial CT scan has been negative. Patient is being followed by Neurology. A repeat CT scan was done yesterday which did not show any new findings. The patient's blood pressure was elevated. She is currently not taking any oral medications and is maintained on IV hydralazine and labetalol. PHYSICAL EXAMINATION: On examination today, blood pressure this morning 175/77, heart rate 81 per minute, patient is afebrile. She is not communicating much. 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 There is some movement noted in both upper extremities. LABS SHOW: Hemoglobin 10.4 sodium 138, potassium 3.5. ASSESSMENT: 1. End-stage renal disease, on hemodialysis on a Saturday, Saturday, Saturday schedule. 2. Mental status changes and weakness, being followed by Neurology with high suspicion for acute cerebrovascular accident. 3. Hypertension, uncontrolled, maintained on clonidine patch 0.3 mg as well as hydralazine and labetalol IV. If patient is able to take oral medications, I will add her home medications. 4. Chronic kidney disease mineral bone disorder, maintained on Renvela. 5. Fever with a significant pyuria noted on urinalysis, currently maintained on antibiotics, being followed by ID. Urine culture pending. Patient did receive a dose of vancomycin as well. She is currently on Rocephin. PLAN: Hemodialysis in a.m. Control blood pressure. Increase UF tomorrow with dialysis. Add oral antihypertensive med if the patient is able to take orally. MMODL / IJN: [id number] /
[2020-07-03] MEDS: SEVELAMER 800 MG TAB PO SCH (16:44)
[2020-07-03] MEDS: APIXABAN 2.5 MG TABLET PO SCH (16:44)
[2020-07-03] MEDS ORDERED: atenoloL 50 MG TAB PO SCH (17:00)
[2020-07-03 20:21] LABS: Glucose,Whole Blood 139 mg/dL (75-99)
--- NOTE | 2020-07-04 00:03 | EEG ---
ELECTROENCEPHALOGRAM REPORT BEDSIDE EEG: DATE OF SERVICE: 07/03/2020 FINDINGS: This EEG is being performed using the international 10-20 placement system. The patient is reportedly awake at the onset of the recording. There is a generalized slow background rhythm of 2 to 4 Hz. This background rhythm does attenuate with eye opening. Photic stimulation is performed and does produce an asymmetric driving response. Amplitude with photic stimulation is greater in the left temporal occipital leads in comparison to the right. There are no focal discharges. There are no epileptiform discharges. There is a tremendous amount of movement artifact throughout the recording. Video monitoring was not available. IMPRESSION: This is an abnormal EEG with generalized slowing and decreased amplitude in the right temporal occipital regions during photic stimulation. These findings are consistent with a toxic metabolic or hypoxic encephalopathy. The asymmetric driving response is likely a normal variant. The lack of epileptiform discharges does not rule out seizure. If seizures continue to be suspected, a repeat EEG or 24-EEG may be of benefit. JAI / BLESSINGN: [id number] /
--- NOTE | 2020-07-04 01:11 | PN ---
PROGRESS NOTE DATE OF SERVICE: 07/03/2020 REASON FOR FOLLOWUP: Fever, possible urinary tract infection versus pneumonia. INTERVAL HISTORY: The patient overall fever pattern has improved. No fever for the last 24 hours. The patient is more awake and alert, no . Denies having any chest pain or shortness of breath. Minimal cough. No abdominal pain. The patient did have Brunner catheter draining clear urine with no hematuria. PHYSICAL EXAMINATION: Blood pressure 190/81 with a pulse of 76, temperature is 97.8. She is 94% on room air. General description is an elderly female lying in bed in no distress. RESPIRATORY SYSTEM: Unlabored breathing, decreased breath sounds at bases. No wheeze. HEART: S1, S2. Regular rate and rhythm. ABDOMEN: Soft, no tenderness. LABS: Hemoglobin is 10.4, white count 13.7, BUN of 24, creatinine 3.83. Vanco random is 14.4. Urine so far negative. DIAGNOSTIC IMPRESSION AND PLAN: Patient admitted to the hospital with fever, concern likely for urinary tract infection in a patient who still makes urine and did have significant positive pneumonia. Patient seemed to have clinically responded to Rocephin and vancomycin to continue while waiting for the condition to stabilize and culture to finalize. Continue supportive care. MMODL / IJN: [id number] /
[2020-07-04] MEDS: LABETALOL 5 MG/ML VIAL MDV IVP SCH ×5 (03:38→20:54)
[2020-07-04] MEDS: APIXABAN 2.5 MG TABLET PO SCH ×2 (06:08→17:00)
[2020-07-04] MEDS: SEVELAMER 800 MG TAB PO SCH ×3 (06:08→17:56)
[2020-07-04 06:10] LABS: Glucose,Whole Blood 145 mg/dL (75-99)
[2020-07-04 07:51] LABS: Basophils % (A) 0 %; Eosinophils # (A) 0.1 k/uL (0-0.7); Eosinophils % (A) 1 %; HCT 34.2 % (34.0-46.0); HGB 10.7 gm/dL (11.4-16.0); Hypochromasia Moderate; Lymphocytes # (A) 1.6 k/uL (1.0-4.8); Lymphocytes % (A) 13 %; MCHC 31.3 g/dL (31.0-37.0); MCV 95.8 fL (80.0-100.0); Mean Platelet Volume 8.4; Monocytes # (A) 0.6 k/uL (0-1.0); Monocytes % (A) 5 %; Neutrophils # (A) 9.4 k/uL (1.3-7.7); Neutrophils % (A) 80 %; Platelet Count 158 k/uL (150-450); RBC 3.57 m/uL (3.80-5.40); RDW 14.4 % (11.5-15.5); WBC 11.8 k/uL (3.8-10.6)
[2020-07-04 08:09] LABS: Calcium 8.6 mg/dL (8.4-10.2); Potassium 3.6 mmol/L (3.5-5.1)
[2020-07-04 08:14] LABS: Vancomycin,Random 24.7 ug/mL
[2020-07-04] MEDS: ATORVASTATIN 80 MG TAB PO SCH (08:43)
[2020-07-04] MEDS: ASPIRIN 81 MG PO SCH (08:43)
[2020-07-04] MEDS: FAMOTIDINE 20 MG TAB PO SCH (08:43)
--- NOTE | 2020-07-04 11:34 | PN ---
PROGRESS NOTE Patient is seen for followup for end-stage renal disease. She is maintained on IV hydralazine and labetalol for control of blood pressure. Blood pressure is occasionally improved; however, it spikes up back to around 180 mmHg systolic. The patient was able to take oral medications, therefore, I will resume her oral antihypertensive medications at home. This morning she is awake. She is able to answer questions on and off. She is oriented x1. PHYSICAL EXAMINATION: Today, blood pressure is 147/65, heart rate 62 per minute, she is afebrile. Examination of the heart S1, S2. Examination of the lungs, bilateral breath sounds are heard. Abdomen is soft, nontender. Examination of the lower extremities shows no significant edema. Patient is weak in the upper extremities, more weak on the right side than the left side. She is confused. Oriented x1. LABS: Show sodium 139, potassium 3.6, chloride 104, BUN 33, creatinine 5.45, hemoglobin 10.7 g/dL. ASSESSMENT: 1. End-stage renal disease, on hemodialysis on a Saturday, Saturday, Saturday schedule. 2. Acute CVA with CT currently negative, being followed by Neurology. 3. Hypertension, uncontrolled. Increase Tenormin and add oral hydralazine as well and if blood pressure remains uncontrolled, I will add oral Norvasc. Patient is able to take oral medications now. 4. CKD mineral bone disorder. 5. Mental status changes secondary to CVA. 6. Fever with pyuria noted on urine analysis, urine culture; however, showed no growth. I am not sure this is secondary to antibiotics. PLAN: Hemodialysis today, increase UF with dialysis and add oral antihypertensive medications. Add Norvasc if blood pressure remains elevated. MMODL / IJN: [id number] /
[2020-07-04 11:48] LABS: Glucose,Whole Blood 185 mg/dL (75-99)
[2020-07-04] MEDS: CHOLECALCIFEROL 1,000 UNIT TAB PO SCH (12:10)
--- NOTE | 2020-07-04 13:39 | P.PN ---
Subjective this is a pleasant 74 years old female with past medical history of end-stage renal disease on hemodialysis, diabetes mellitus, GERD, hypertension, hyperlipidemia, osteoarthritis, history of left breast cancer, right eye diabetic retinopathy, with vision problems, history of pneumonia, chronic heart failure. Patient could not provide information so it was obtained from staff and medical records. No family at bedside, family was tried to be contacted with no success. patient presents because of altered mental status and she has a fever on ad mission. Patient was transferred from [facility] for decreased alertness and seizure is suspected. Neurologist evaluated the patient and recommended MRI of the brain when patient is more stable, EEG is also is recommended as well as telemetry, PT/OT start/SLT, check echocardiogram and TSH Chest x-ray was negative, CT of the head and neck was unremarkable, brain CT showed no acute processes, EKG showing normal sinus rhythm. Patient was started on ceftriaxone and normocephalic 100 mL per hour which was is top normal. Her blood pressure was elevated and she was started on clonidine 0.3 mg, no paternal is added and her blood pressure is better controlled down to 118/66. Also she has hydralazine as needed. Patient underwent hemodialysis today Patient is provided with 1 dose of vancomycin pharmacy to dose, 1 dose of acyclovir, continue with Rocephin. Consult infectious disease . Urine analysis suspicious for UTI infection, culture is pending 07/03/2020 Patient is more awake and alert today she knows her name, she knows she is in the hospital in [place], however she could not tell their origin name of the president, she follow commands appropriately which is significantly improved compared to yesterday when she was attended. However patient still confused about why she was in the hospital and her symptoms prior to hospitalization. However patient looks calm. She denies any pain, no headache or chest pain or abdominal pain, no other specific complaints no more fever since yesterday.WBC is still slightly elevated at 13.7 K.urine analysis is suspicious for infection, she has Brunner catheter. Urine culture is pending. BMP is noted repeat brain CT yesterday was unremarkable for acute hemorrhage. Neurology on the case. Infectious disease team were consulted Echocardiogram showed ejection fraction of 55-60%. MRI of the brain is recommended by neurology team as well as EEG. postoperative her oral home medication 07/04/2020 Patient is more awake and answer questions appropriately however she still confused to time place and person and her diagnosis. She can move her extremities easily in all directions. She still have some slurred speech and mild left facial deviation. She is afebrile and blood pressure 169/64 WBCs trending down to 11.8 K. Glucose is controlled. Patient remains on Rocephin and IV vancomycin pharmacy to dose. She choked on her pills this morning and we will do a swallow evaluation. Patient took her Eliquis this morning Review of Systems N/a, patient is Confused Active Medications Generic Name Dose Route Start Last Admin Trade Name Freq PRN Reason Stop Dose Admin Acetaminophen 650 mg 07/02/20 16:05 07/02/20 16:59 Acetaminophen Suppository 650 Mg Supp RECTAL 650 mg Q6HR PRN Administration Fever and/ or Pain Apixaban 2.5 mg 07/03/20 17:00 07/04/20 06:08 Apixaban 2.5 Mg Tablet PO 2.5 mg BID@0700,1700 [facility] Administration Aspirin 81 mg 07/02/20 09:00 07/04/20 08:43 Aspirin 81 Mg PO Not Given DAILY [facility] Atenolol 50 mg 07/04/20 21:00 Atenolol 50 Mg Tab PO BID [facility] Atorvastatin Calcium 80 mg 07/01/20 17:30 07/04/20 08:43 Atorvastatin 80 Mg Tab PO Not Given DAILY [facility] Benzocaine/Menthol 1 each 07/03/20 12:31 Benzocaine/Menthol Lozeng 1 Each Lozenge MUCOUS MEM Q6H PRN COLD, SORE THROAT Cholecalciferol 2,000 unit 07/04/20 12:00 07/04/20 12:10 Cholecalciferol 1,000 Unit Tab PO Not Given DAILY@1200 [facility] Clonidine HCl 1 patch 07/01/20 21:30 07/01/20 22:10 Clonidine 0.3 Mg/24hr Patch TRANSDERM 1 patch Q7D [facility] Administration Famotidine 20 mg 07/04/20 09:00 07/04/20 08:43 Famotidine 20 Mg Tab PO Not Given DAILY [facility] Hydralazine HCl 10 mg 07/01/20 23:54 07/03/20 11:21 Hydralazine Hcl 20 Mg/Ml 1 Ml Vial IVP 10 mg Q6HR PRN Administration Blood Pressure - High Hydralazine HCl 50 mg 07/04/20 16:00 Hydralazine Hcl 50 Mg Tab PO TID [facility] Ceftriaxone Sodium 1 gm/ 50 mls @ 100 mls/hr 07/02/20 08:00 07/04/20 08:49 Sodium Chloride IVPB 100 mls/hr Q12H [facility] Administration Labetalol HCl 10 mg 07/03/20 16:00 07/04/20 12:13 Labetalol 5 Mg/Ml Vial Mdv IVP 10 mg Q4HR [facility] Administration Miscellaneous Information 1 each 07/02/20 11:53 Vancomycin Iv Per Pharmacy 1 Each [facility] MISCELLANE DIRECTED PRN Per Protocol Protocol Sevelamer Carbonate 800 mg 07/03/20 17:00 07/04/20 12:10 Sevelamer 800 Mg Tab PO Not Given TID@0700,1200,1700 [facility] Objective - Vital Signs Vital signs: Vital Signs Temp 96.6 F L 07/04/20 12:00 Pulse 69 07/04/20 12:00 Resp 16 07/04/20 12:00 BP 169/64 07/04/20 12:00 Pulse Ox 96 07/04/20 12:00 Intake & Output 07/03/20 07/04/20 07/04/20 18:59 06:59 18:59 Intake Total 10 100 Output Total 60 Balance -50 100 Weight 83.5 kg 80.5 kg Intake: Oral 10 100 Output: Urine 60 Other: Voiding Method Indwelling Catheter Indwelling Catheter Indwelling Catheter - Exam -GENERAL: The patient is more awake today. She is calm, she answers some questions appropriately however she still confused to time place and person. She follows commands easily. She is not in distress HEENT: Pupils are round and equally reacting to light. EOMI. No scleral icterus. No conjunctival pallor. Normocephalic, atraumatic. No pharyngeal erythema. No thyromegaly. CARDIOVASCULAR: S1 and S2 present. No murmurs, rubs, or gallops. PULMONARY: Chest is clear to auscultation, no wheezing or crackles. ABDOMEN: Soft, nontender, nondistended, normoactive bowel sounds. No palpable organomegaly. MUSCULOSKELETAL: No joint swelling or deformity. EXTREMITIES: No cyanosis, clubbing, or pedal edema. -NEUROLOGICAL: She has mild facial deviation to the left, she has mild slurred speech, rest of cranial nerves are grossly intact, strength is 5/5 and sensation is intact in all 4 extremities. Meningeal signs are absent. SKIN: No rashes. no petechiae. - Labs CBC & Chem 7: 07/04/20 06:14 07/04/20 06:14 Labs: Abnormal Lab Results - Last 24 Hours (Table) 07/03/20 07/04/20 07/04/20 Range/Units 20:19 06:09 06:14 WBC 11.8 H (3.8-10.6) k/uL RBC 3.57 L (3.80-5.40) m/uL Hgb 10.7 L (11.4-16.0) gm/dL Neutrophils # 9.4 H (1.3-7.7) k/uL BUN (7-17) mg/dL Creatinine (0.52-1.04) mg/dL Glucose (74-99) mg/dL POC Glucose (mg/dL) 139 H 145 H (75-99) mg/dL 07/04/20 07/04/20 Range/Units 06:14 11:37 WBC (3.8-10.6) k/uL RBC (3.80-5.40) m/uL Hgb (11.4-16.0) gm/dL Neutrophils # (1.3-7.7) k/uL BUN 33 H (7-17) mg/dL Creatinine 5.45 H (0.52-1.04) mg/dL Glucose 135 H (74-99) mg/dL POC Glucose (mg/dL) 185 H (75-99) mg/dL Microbiology - Last 24 Hours (Table) 07/02/20 12:10 Urine Culture - Final Urine,Voided 07/02/20 11:59 Blood Culture - Preliminary Blood No Growth after 24 hours 07/01/20 00:25 Urine Culture - Final Urine,Clean Catch Assessment and Plan Assessment: sepsis of unknown source, possible UTI and pyelonephritis Metabolic encephalopathy secondary to above End-stage renal disease on hemodialysis hypertension with urgency type 2 diabetes mellitus GERD Hyperlipidemia Osteoarthritis History of left breast cancer right eye diabetic retinopathy, with vision problems Plan: Continue with antibiotics as above and consult infectious disease team. Continue with the clonidine and labetalol when necessary and hydralazine when necessary and monitor blood pressure closely, discussed with the staff Follow-up recommendation by neurology, nephrology and infectious disease. Continue with hemodialysis as per nephrology team recommendation resume her oral medication DVT prophylaxis, Eliquis GI prophylaxis: Pepcid Prognosis is guarded
[2020-07-04 14:03] LABS: Hemoglobin A1C 5.6 % (4.0-6.0)
[2020-07-04] MEDS: hydrALAZINE HCL 50 MG TAB PO SCH ×2 (17:00→22:47)
[2020-07-04 17:05] LABS: Glucose,Whole Blood 140 mg/dL (75-99)
--- NOTE | 2020-07-04 17:05 | MR ---
EXAMINATION TYPE: MR brain wo con DATE OF EXAM: 07/04/2020 COMPARISON: None HISTORY: Confusion. Weakness. Multiplanar multiecho imaging of the brain was performed with no contrast. FINDINGS: There is cerebral cortical atrophy. There is no mass effect nor midline shift. There is no evidence o f intracranial hemorrhage. The diffusion images show no evidence of an acute cortical infarct. On the T2 and FLAIR images there is coalescent increased signal in the periventricular white matter a djacent to the lateral ventricles. There is mild enlargement of the ventricles. There is mild thinnin g of the corpus callosum. The brainstem is intact. The sella turcica is normal. There is no evidence of orbital mass. IMPRESSION: Cerebral atrophy. Hydrocephalus. No obstructing lesion. Mild linear increased signal along the periv entricular white matter consistent with flow related phenomenon. There is also some chronic small ves norma ischemia. Demyelinating disease is not excluded. White matter pattern is not typical for demyelin ating disease.
--- NOTE | 2020-07-04 20:02 | P.PN ---
Subjective Progress Note Date: 07/04/20 Patient was seen for a follow-up. Patient was admitted on 06/30/2020 with altered mental status. CT head showed no acute process. CTA revealed no signs of large vessel occlusion. Patient is laying comfortably in the bed. Offers no complaints. Does have mild headache. MRI of the brain without contrast revealed cerebral atrophy. Hydrocephalus. No obstructing lesion. Mild linear increased signal along the periventricular white matter consistent with flow related phenomenon. There is also some chronic small vessel ischemia. Demyelinating disease is not excluded. White matter pattern is not typical for demyelinating disease. Overall, no acute stroke. On my exam, there is no hydrocephalus, probably cerebral atrophy from dementia. Objective - Vital Signs Vital signs: Vital Signs Temp 97.9 F 07/04/20 16:00 Pulse 80 07/04/20 16:00 Resp 16 07/04/20 16:00 BP 160/81 07/04/20 16:00 Pulse Ox 94 L 07/04/20 16:00 Intake & Output 07/04/20 07/04/20 07/05/20 06:59 18:59 06:59 Intake Total 150 Balance 150 Weight 80.5 kg Intake: Oral 150 Other: Voiding Method Indwelling Catheter Indwelling Catheter # Bowel Movements 1 - Exam On examination patient is slightly sleepy, but did wake up. Patient states is November and then said was June and the year is . She thinks she is in [facility]. Does not know name of the current president. Speech is clear with no aphasia. Face is symmetric. Visual morales could not be tested reliably. Her muscle strength is normal in the arms. Patient's strength is normal in the right leg. She is a flail left foot. She has chronic foot drop on the left. - Labs CBC & Chem 7: 07/04/20 06:14 07/04/20 06:14 Labs: Abnormal Lab Results - Last 24 Hours (Table) 07/03/20 07/04/20 07/04/20 Range/Units 20:19 06:09 06:14 WBC 11.8 H (3.8-10.6) k/uL RBC 3.57 L (3.80-5.40) m/uL Hgb 10.7 L (11.4-16.0) gm/dL Neutrophils # 9.4 H (1.3-7.7) k/uL BUN (7-17) mg/dL Creatinine (0.52-1.04) mg/dL Glucose (74-99) mg/dL POC Glucose (mg/dL) 139 H 145 H (75-99) mg/dL 07/04/20 07/04/20 07/04/20 Range/Units 06:14 11:37 17:01 WBC (3.8-10.6) k/uL RBC (3.80-5.40) m/uL Hgb (11.4-16.0) gm/dL Neutrophils # (1.3-7.7) k/uL BUN 33 H (7-17) mg/dL Creatinine 5.45 H (0.52-1.04) mg/dL Glucose 135 H (74-99) mg/dL POC Glucose (mg/dL) 185 H 140 H (75-99) mg/dL Microbiology - Last 24 Hours (Table) 07/02/20 11:59 Blood Culture - Preliminary Blood No Growth after 48 hours 07/02/20 12:10 Urine Culture - Final Urine,Voided Assessment and Plan Assessment: * No evidence of acute stroke noted on MRI. Patient probably has some degree of cognitive impairment. * Hypertension * Diabetes * CAD * History of CHF. Plan: * MRI of brain revealed no acute stroke. Cerebral atrophy, prominence of the ventricles. Some concern of hydrocephalus, although not very significant on my review. May need to follow-up with patient's caregiver to obtain collateral history about her baseline cognitive functioning, mobility or any concerns of possible NPH. * EEG was abnormal showing generalized slowing and decreased amplitude in the right temporal occipital region during photic stimulation. This is consistent with toxic metabolic encephalopathy or hypoxic encephalopathy. No epileptiform activity seen. * 2-D echo showed normal left-ventricular size. Moderate concentric LVH. EF is 55-60%. Right ventricle is mildly enlarged. * Hemoglobin A1c 5.6, TSH 1.40 * Lipid panel with cholesterol 144, LDL 62, HDL 29 and triglycerides 267. * Patient currently on Eliquis 2.5 mg twice a day and aspirin 81 mg. * Consider follow-up with neurology outpatient to evaluate for underlying cognitive impairment/dementia.
[2020-07-04 20:55] LABS: Glucose,Whole Blood 155 mg/dL (75-99)
[2020-07-04] MEDS: atenoloL 50 MG TAB PO SCH (22:47)
--- NOTE | 2020-07-05 00:53 | PN ---
PROGRESS NOTE DATE OF SERVICE: 07/04/2020 REASON FOR FOLLOWUP: Fever, likely UTI and a question of pneumonia. INTERVAL HISTORY: The patient is currently afebrile. The patient is breathing comfortably on room air, slightly sleepy and lethargic today. No nausea, vomiting, or any diarrhea reported by the nursing staff. PHYSICAL EXAMINATION: Blood pressure is 160/81 with a pulse of 80, temperature 97.9. She is 94% on room air. General description is an elderly female up in the bed in no distress. RESPIRATORY SYSTEM: Unlabored breathing, decreased breath sounds at the bases. No wheeze. HEART: S1, S2. Regular rate and rhythm. ABDOMEN: Soft, no tenderness. LABS: Hemoglobin is 10.7, white count 11.8, creatinine 5.45. Vancomycin random is 24.7. DIAGNOSTIC IMPRESSION AND PLAN: Patient with fever. Concern likely for a urinary tract infection in the patient still makes urine. Plus minus pneumonia. Chest x-ray will be repeated. The patient to continue with Rocephin and vancomycin and monitor her clinical course closely. MMODL / IJN: [id number] /
[2020-07-05] MEDS: LABETALOL 5 MG/ML VIAL MDV IVP SCH ×7 (01:22→23:48)
[2020-07-05 06:09] LABS: Glucose,Whole Blood 161 mg/dL (75-99)
[2020-07-05] MEDS: APIXABAN 2.5 MG TABLET PO SCH ×2 (06:34→16:34)
[2020-07-05] MEDS: SEVELAMER 800 MG TAB PO SCH ×3 (06:35→15:02)
[2020-07-05 07:52] LABS: Basophils % (A) 0 %; Eosinophils # (A) 0.2 k/uL (0-0.7); Eosinophils % (A) 2 %; HCT 35.1 % (34.0-46.0); Hypochromasia Moderate; Lymphocytes # (A) 1.7 k/uL (1.0-4.8); Lymphocytes % (A) 15 %; MCH 29.9 pg (25.0-35.0); MCHC 31.3 g/dL (31.0-37.0); MCV 95.3 fL (80.0-100.0); Mean Platelet Volume 9.1; Monocytes # (A) 0.6 k/uL (0-1.0); Monocytes % (A) 5 %; Neutrophils # (A) 8.5 k/uL (1.3-7.7); Neutrophils % (A) 76 %; Platelet Count 156 k/uL (150-450); RBC 3.68 m/uL (3.80-5.40); RDW 14.5 % (11.5-15.5); WBC 11.2 k/uL (3.8-10.6)
[2020-07-05 07:56] LABS: Calcium 8.4 mg/dL (8.4-10.2); Potassium 3.3 mmol/L (3.5-5.1)
[2020-07-05] MEDS: CHOLECALCIFEROL 1,000 UNIT TAB PO SCH (08:44)
[2020-07-05] MEDS: ASPIRIN 81 MG PO SCH (08:44)
[2020-07-05] MEDS: atenoloL 50 MG TAB PO SCH ×2 (08:44→20:55)
[2020-07-05] MEDS: ATORVASTATIN 80 MG TAB PO SCH (08:44)
[2020-07-05] MEDS: FAMOTIDINE 20 MG TAB PO SCH (08:44)
[2020-07-05] MEDS: hydrALAZINE HCL 50 MG TAB PO SCH ×2 (08:44→16:33)
[2020-07-05 12:04] LABS: Glucose,Whole Blood 121 mg/dL (75-99)
[2020-07-05] MEDS: cloNIDine 0.3 MG/24HR PATCH TRANSDERM SCH (12:42)
--- NOTE | 2020-07-05 13:36 | XR ---
EXAMINATION TYPE: XR chest 2V DATE OF EXAM: 07/05/2020 CLINICAL HISTORY: Pneumonia TECHNIQUE: Frontal and lateral views of the chest are obtained. COMPARISON: 07/02/2020 chest radiograph FINDINGS: Vascular stent over the right lung apex. The cardiomediastinal silhouette is within normal limits for size. Pulmonary vasculature is normal. There is no focal air space opacity, pleural effus ion, or pneumothorax seen. Degenerative changes of the spine and shoulders. IMPRESSION: No acute cardiopulmonary process.
[2020-07-05] MEDS ORDERED: POTASSIUM BICARBONATE/CIT AC 20 MEQ TABLET.EFF PO ONE (13:45)
--- NOTE | 2020-07-05 16:48 | P.PN ---
Subjective Progress Note Date: 07/05/20 07/05/2020: Patient is much more alert and awake. Patient denies headache. Patient tells me that she has 2 sons, carrie is involved in her care. Patient later states that she lives with her cousin, as her house has been told down. Patient does have issues with balance. Patient states that she sometimes speaks urine. Telemetry monitoring showing sinus bradycardia and upper 40s with some PVCs. 07/04/2020: Patient was seen for a follow-up. Patient was admitted on 06/30/2020 with altered mental status. CT head showed no acute process. CTA revealed no signs of large vessel occlusion. Patient is laying comfortably in the bed. Offers no complaints. Does have mild headache. MRI of the brain without contrast revealed cerebral atrophy. Hydrocephalus. No obstructing lesion. Mild linear increased signal along the periventricular white matter consistent with flow related phenomenon. There is also some chronic small vessel ischemia. Demyelinating disease is not excluded. White matter pattern is not typical for demyelinating disease. Overall, no acute stroke. On my exam, there is no hydrocephalus, probably cerebral atrophy from dementia. Objective - Vital Signs Vital signs: Vital Signs Temp 98.8 F 07/05/20 16:05 Pulse 52 L 07/05/20 16:05 Resp 16 07/05/20 15:53 BP 109/58 07/05/20 16:05 Pulse Ox 96 07/05/20 15:53 Intake & Output 07/04/20 07/05/20 07/05/20 18:59 06:59 18:59 Intake Total 150 220 640 Output Total 200 Balance 150 20 640 Weight 91.5 kg Intake: Intake, IV Titration 100 100 Amount cefTRIAXone 1 gm In 100 100 Sodium Chloride 0.9% 50 ml @ 100 mls/hr IVPB Q12H [facility] Rx#:[id number] Oral 150 120 540 Output: Urine 200 Other: Voiding Method Indwelling Catheter Indwelling Catheter Indwelling Catheter # Voids 0 # Bowel Movements 1 - Exam On examination patient is fully alert and awake. Her speech is clear with no aphasia or dysarthria. Patient knows that it is June 2020 in that she is in [place] in the hospital although does not know the name. Patient knows name of the current president. She has positive visuospatial apraxia, positive palmomental reflex. Her muscle strength is normal in the arms. Patient's strength is normal in the right leg. She has a flail left foot. She has chronic foot drop on the left. - Labs CBC & Chem 7: 07/05/20 06:34 07/05/20 06:34 Labs: Abnormal Lab Results - Last 24 Hours (Table) 07/04/20 07/04/20 07/05/20 Range/Units 17:01 20:54 06:07 WBC (3.8-10.6) k/uL RBC (3.80-5.40) m/uL Hgb (11.4-16.0) gm/dL Neutrophils # (1.3-7.7) k/uL Potassium (3.5-5.1) mmol/L BUN (7-17) mg/dL Creatinine (0.52-1.04) mg/dL Glucose (74-99) mg/dL POC Glucose (mg/dL) 140 H 155 H 161 H (75-99) mg/dL 07/05/20 07/05/20 07/05/20 Range/Units 06:34 06:34 12:01 WBC 11.2 H (3.8-10.6) k/uL RBC 3.68 L (3.80-5.40) m/uL Hgb 11.0 L (11.4-16.0) gm/dL Neutrophils # 8.5 H (1.3-7.7) k/uL Potassium 3.3 L (3.5-5.1) mmol/L BUN 39 H (7-17) mg/dL Creatinine 6.49 H (0.52-1.04) mg/dL Glucose 128 H (74-99) mg/dL POC Glucose (mg/dL) 121 H (75-99) mg/dL Microbiology - Last 24 Hours (Table) 07/02/20 11:59 Blood Culture - Preliminary Blood No Growth after 72 hours Assessment and Plan Assessment: * No evidence of acute stroke noted on MRI. Patient probably has some degree of cognitive impairment. * Hypertension * Diabetes * CAD * History of CHF. Plan: * MRI of brain revealed no acute stroke. Cerebral atrophy, prominence of the ventricles. Some concern of hydrocephalus, although not very significant on my review. May need to follow-up with patient's caregiver to obtain collateral history about her baseline cognitive functioning, mobility or any concerns of possible NPH. * EEG was abnormal showing generalized slowing and decreased amplitude in the right temporal occipital region during photic stimulation. This is consistent with toxic metabolic encephalopathy or hypoxic encephalopathy. No epileptiform activity seen. * 2-D echo showed normal left-ventricular size. Moderate concentric LVH. EF is 55-60%. Right ventricle is mildly enlarged. * Hemoglobin A1c 5.6, TSH 1.40 * Lipid panel with cholesterol 144, LDL 62, HDL 29 and triglycerides 267. * Patient currently on Eliquis 2.5 mg twice a day and aspirin 81 mg. * Consider follow-up with neurology outpatient to evaluate for underlying cognitive impairment/dementia.
--- NOTE | 2020-07-05 16:54 | PN ---
PROGRESS NOTE Patient is seen for followup for end-stage renal disease. She is currently seen on hemodialysis. Patient was not dialyzed yesterday. She is currently being dialyzed today. Her blood pressure is somewhat improved. She is much more awake, able to take oral medications. PHYSICAL EXAMINATION: Today, blood pressure was 139/56, heart rate 62 per minute, she is afebrile. Examination of the heart S1, S2. Examination of the lungs, decreased breath sounds at the bases. Abdomen is soft, nontender. Examination of the lower extremities shows no significant edema. [employer] exam shows patient is weak. She continues to be more weaker on her right upper extremity and she appears weak in her left lower extremity as well. LABS: Show hemoglobin 11.0, sodium 141, potassium 3.3. ASSESSMENT: 1. End-stage renal disease, on hemodialysis on a Saturday, Saturday, Saturday schedule. 2. Volume overload, currently improving. 3. Hypertension, better controlled now. 4. Hypokalemia. Will adjust with hemodialysis. 5. Status post CVA. Mentation appears to have improved. Brain MRI done yesterday does not show any significant acute findings. Chronic changes are noted. PLAN: Repeat hemodialysis in a.m. Plan is add Norvasc. Continue with the hydralazine and the Tenormin along with the clonidine patch for now. Hopefully we can decrease use of IV medications. MMODL / IJN: [id number] /
[2020-07-05 17:04] LABS: Glucose,Whole Blood 238 mg/dL (75-99)
[2020-07-05] MEDS: hydrALAZINE HCL 25 MG TAB PO SCH (20:55)
[2020-07-05 21:12] LABS: Glucose,Whole Blood 183 mg/dL (75-99)
--- NOTE | 2020-07-05 22:59 | P.PN ---
Subjective this is a pleasant 74 years old female with past medical history of end-stage renal disease on hemodialysis, diabetes mellitus, GERD, hypertension, hyperlipidemia, osteoarthritis, history of left breast cancer, right eye diabetic retinopathy, with vision problems, history of pneumonia, chronic heart failure. Patient could not provide information so it was obtained from staff and medical records. No family at bedside, family was tried to be contacted with no success. patient presents because of altered mental status and she has a fever on ad mission. Patient was transferred from [facility] for decreased alertness and seizure is suspected. Neurologist evaluated the patient and recommended MRI of the brain when patient is more stable, EEG is also is recommended as well as telemetry, PT/OT start/SLT, check echocardiogram and TSH Chest x-ray was negative, CT of the head and neck was unremarkable, brain CT showed no acute processes, EKG showing normal sinus rhythm. Patient was started on ceftriaxone and normocephalic 100 mL per hour which was is top normal. Her blood pressure was elevated and she was started on clonidine 0.3 mg, no paternal is added and her blood pressure is better controlled down to 118/66. Also she has hydralazine as needed. Patient underwent hemodialysis today Patient is provided with 1 dose of vancomycin pharmacy to dose, 1 dose of acyclovir, continue with Rocephin. Consult infectious disease . Urine analysis suspicious for UTI infection, culture is pending 07/03/2020 Patient is more awake and alert today she knows her name, she knows she is in the hospital in [place], however she could not tell their origin name of the president, she follow commands appropriately which is significantly improved compared to yesterday when she was attended. However patient still confused about why she was in the hospital and her symptoms prior to hospitalization. However patient looks calm. She denies any pain, no headache or chest pain or abdominal pain, no other specific complaints no more fever since yesterday.WBC is still slightly elevated at 13.7 K.urine analysis is suspicious for infection, she has South catheter. Urine culture is pending. BMP is noted repeat brain CT yesterday was unremarkable for acute hemorrhage. Neurology on the case. Infectious disease team were consulted Echocardiogram showed ejection fraction of 55-60%. MRI of the brain is recommended by neurology team as well as EEG. postoperative her oral home medication 07/04/2020 Patient is more awake and answer questions appropriately however she still confused to time place and person and her diagnosis. She can move her extremities easily in all directions. She still have some slurred speech and mild left facial deviation. She is afebrile and blood pressure 169/64 WBCs trending down to 11.8 K. Glucose is controlled. Patient remains on Rocephin and IV vancomycin pharmacy to dose. She choked on her pills this morning and we will do a swallow evaluation. Patient took her Eliquis this morning 07/05/20 pt is more awake and oriented today she knows she is in [facility] but she confused about time, she knows the president name. most like pt has metabolic encepalopathy rather than stroke. her bp is better controlled on atenolol , hydralazine and norvasc as per nephrology team recommendations south cathter is in place with clear urine about 150 ml she remains on broad spectrum abx, UTI is suspected but UC is negative, repeat cxr is negative as well Objective - Vital Signs Vital signs: Vital Signs Temp 98.8 F 07/05/20 16:05 Pulse 52 L 07/05/20 16:05 Resp 16 07/05/20 15:53 BP 109/58 07/05/20 16:05 Pulse Ox 96 07/05/20 15:53 Intake & Output 07/05/20 07/05/20 07/06/20 06:59 18:59 06:59 Intake Total 220 880 Output Total 200 Balance 20 880 Weight 91.5 kg Intake: Intake, IV Titration 100 100 Amount cefTRIAXone 1 gm In 100 100 Sodium Chloride 0.9% 50 ml @ 100 mls/hr IVPB Q12H [facility] Rx#:[id number] Oral 120 780 Output: Urine 200 Other: Voiding Method Indwelling Catheter Indwelling Catheter # Voids 0 - Exam -GENERAL: The patient is more awake today. She is calm, she answers some questions appropriately however she still confused to time place and person. S he follows commands easily. She is not in distress HEENT: Pupils are round and equally reacting to light. EOMI. No scleral icterus. No conjunctival pallor. Normocephalic, atraumatic. No pharyngeal erythema. No thyromegaly. CARDIOVASCULAR: S1 and S2 present. No murmurs, rubs, or gallops. PULMONARY: Chest is clear to auscultation, no wheezing or crackles. ABDOMEN: Soft, nontender, nondistended, normoactive bowel sounds. No palpable organomegaly. MUSCULOSKELETAL: No joint swelling or deformity. EXTREMITIES: No cyanosis, clubbing, or pedal edema. -NEUROLOGICAL: She has mild facial deviation to the left, she has mild slurred speech, rest of cranial nerves are grossly intact, strength is 5/5 and sensation is intact in all 4 extremities. Meningeal signs are absent. SKIN: No rashes. no petechiae. - Labs CBC & Chem 7: 07/05/20 06:34 07/05/20 06:34 Labs: Abnormal Lab Results - Last 24 Hours (Table) 07/04/20 07/05/20 07/05/20 Range/Units 20:54 06:07 06:34 WBC 11.2 H (3.8-10.6) k/uL RBC 3.68 L (3.80-5.40) m/uL Hgb 11.0 L (11.4-16.0) gm/dL Neutrophils # 8.5 H (1.3-7.7) k/uL Potassium (3.5-5.1) mmol/L BUN (7-17) mg/dL Creatinine (0.52-1.04) mg/dL Glucose (74-99) mg/dL POC Glucose (mg/dL) 155 H 161 H (75-99) mg/dL 07/05/20 07/05/20 07/05/20 Range/Units 06:34 12:01 17:02 WBC (3.8-10.6) k/uL RBC (3.80-5.40) m/uL Hgb (11.4-16.0) gm/dL Neutrophils # (1.3-7.7) k/uL Potassium 3.3 L (3.5-5.1) mmol/L BUN 39 H (7-17) mg/dL Creatinine 6.49 H (0.52-1.04) mg/dL Glucose 128 H (74-99) mg/dL POC Glucose (mg/dL) 121 H 238 H (75-99) mg/dL Microbiology - Last 24 Hours (Table) 07/02/20 11:59 Blood Culture - Preliminary Blood No Growth after 72 hours Assessment and Plan Assessment: sepsis of unknown source, possible UTI and pyelonephritis Metabolic encephalopathy secondary to above End-stage renal disease on hemodialysis hypertension with urgency type 2 diabetes mellitus GERD Hyperlipidemia Osteoarthritis History of left breast cancer right eye diabetic retinopathy, with vision problems Plan: Continue with antibiotics as above and consult infectious disease team. Continue with the clonidine and labetalol when necessary and hydralazine when necessary and monitor blood pressure closely, discussed with the staff Follow-up recommendation by neurology, nephrology and infectious disease. Continue with hemodialysis as per nephrology team recommendation resume her oral medication DVT prophylaxis, Eliquis GI prophylaxis: Pepcid Prognosis is guarded
--- NOTE | 2020-07-05 23:54 | PN ---
PROGRESS NOTE DATE OF SERVICE: 07/05/2020 REASON FOR FOLLOWUP: Fever, possible UTI and a question of pneumonia. INTERVAL HISTORY: The patient is currently afebrile. The patient is breathing comfortably. Denies having any chest pain or cough. No abdominal pain or diarrhea. PHYSICAL EXAMINATION: Her blood pressure 109/58 with a pulse of 52, temperature 98.8. She is 96% on room air. General description is an elderly female lying in bed in no distress. RESPIRATORY SYSTEM: Unlabored breathing, decreased breath sounds at the bases. No wheeze. HEART: S1, S2. Regular rate and rhythm. ABDOMEN: Soft, no tenderness. LABS: Hemoglobin 11, white count 11.2, BUN of 39, creatinine 6.49. Herzog PCR is negative. Chest x-ray repeat is negative. DIAGNOSTIC IMPRESSION AND PLAN: Patient admitted to the hospital with fever and mental status changes. Concern for possible urinary source. She did have significantly positive UA. Overall responding to the Rocephin. Finish therapy short course of oral Ceftin. Vancomycin will be discontinued. Continue supportive care. MMODL / IJN: [id number] /
[2020-07-06] MEDS: LABETALOL 5 MG/ML VIAL MDV IVP SCH ×5 (03:38→19:56)
[2020-07-06 06:07] LABS: Glucose,Whole Blood 145 mg/dL (75-99)
[2020-07-06] MEDS: SEVELAMER 800 MG TAB PO SCH ×3 (07:01→17:05)
[2020-07-06] MEDS: APIXABAN 2.5 MG TABLET PO SCH ×2 (07:01→17:05)
[2020-07-06] MEDS: CHOLECALCIFEROL 1,000 UNIT TAB PO SCH (08:59)
[2020-07-06] MEDS: amLODIPine 5 MG TAB PO SCH (08:59)
[2020-07-06] MEDS: atenoloL 50 MG TAB PO SCH ×2 (08:59→19:56)
[2020-07-06] MEDS: ATORVASTATIN 80 MG TAB PO SCH (08:59)
[2020-07-06] MEDS: ASPIRIN 81 MG PO SCH (08:59)
[2020-07-06] MEDS: hydrALAZINE HCL 25 MG TAB PO SCH ×3 (08:59→22:51)
[2020-07-06] MEDS: FAMOTIDINE 20 MG TAB PO SCH (08:59)
[2020-07-06 10:44] VITALS: BMI 35.2
[2020-07-06 12:00] LABS: Glucose,Whole Blood 127 mg/dL (75-99)
--- NOTE | 2020-07-06 12:52 | P.PN ---
Subjective this is a pleasant 74 years old female with past medical history of end-stage renal disease on hemodialysis, diabetes mellitus, GERD, hypertension, hyperlipidemia, osteoarthritis, history of left breast cancer, right eye diabetic retinopathy, with vision problems, history of pneumonia, chronic heart failure. Patient could not provide information so it was obtained from staff and medical records. No family at bedside, family was tried to be contacted with no success. patient presents because of altered mental status and she has a fever on ad mission. Patient was transferred from [facility] for decreased alertness and seizure is suspected. Neurologist evaluated the patient and recommended MRI of the brain when patient is more stable, EEG is also is recommended as well as telemetry, PT/OT start/SLT, check echocardiogram and TSH Chest x-ray was negative, CT of the head and neck was unremarkable, brain CT showed no acute processes, EKG showing normal sinus rhythm. Patient was started on ceftriaxone and normocephalic 100 mL per hour which was is top normal. Her blood pressure was elevated and she was started on clonidine 0.3 mg, no paternal is added and her blood pressure is better controlled down to 118/66. Also she has hydralazine as needed. Patient underwent hemodialysis today Patient is provided with 1 dose of vancomycin pharmacy to dose, 1 dose of acyclovir, continue with Rocephin. Consult infectious disease . Urine analysis suspicious for UTI infection, culture is pending 07/03/2020 Patient is more awake and alert today she knows her name, she knows she is in the hospital in [place], however she could not tell their origin name of the president, she follow commands appropriately which is significantly improved compared to yesterday when she was attended. However patient still confused about why she was in the hospital and her symptoms prior to hospitalization. However patient looks calm. She denies any pain, no headache or chest pain or abdominal pain, no other specific complaints no more fever since yesterday.WBC is still slightly elevated at 13.7 K.urine analysis is suspicious for infection, she has South catheter. Urine culture is pending. BMP is noted repeat brain CT yesterday was unremarkable for acute hemorrhage. Neurology on the case. Infectious disease team were consulted Echocardiogram showed ejection fraction of 55-60%. MRI of the brain is recommended by neurology team as well as EEG. postoperative her oral home medication 07/04/2020 Patient is more awake and answer questions appropriately however she still confused to time place and person and her diagnosis. She can move her extremities easily in all directions. She still have some slurred speech and mild left facial deviation. She is afebrile and blood pressure 169/64 WBCs trending down to 11.8 K. Glucose is controlled. Patient remains on Rocephin and IV vancomycin pharmacy to dose. She choked on her pills this morning and we will do a swallow evaluation. Patient took her Eliquis this morning 07/05/20 pt is more awake and oriented today she knows she is in [facility] but she confused about time, she knows the president name. most like pt has metabolic encepalopathy rather than stroke. her bp is better controlled on atenolol , hydralazine and norvasc as per nephrology team recommendations south cathter is in place with clear urine about 150 ml she remains on broad spectrum abx, UTI is suspected but UC is negative, repeat cxr is negative as well 07/06/2020 this is a pleasant 74 years old female who presented an obtunded state and fever, suspected to have UTI but urine culture is negative and repeat chest x- ray is negative. She's been evaluated by neurologist and workup was unremarkable. She still on broad-spectrum antibiotic with vancomycin and Rocephin. Vancomycin was discontinued by infectious disease yesterday and we'll keep monitor the patient while she is on Rocephin Patient mentation is improving gradually every day but not back to normal yet. Objective - Vital Signs Vital signs: Vital Signs Temp 97.3 F L 07/06/20 11:44 Pulse 49 L 07/06/20 11:44 Resp 16 07/06/20 11:44 BP 107/52 07/06/20 11:44 Pulse Ox 96 07/06/20 07:46 Intake & Output 07/05/20 07/06/20 07/06/20 18:59 06:59 18:59 Intake Total 880 240 Output Total 100 Balance 880 -100 240 Weight 87.5 kg 87.5 kg Intake: Intake, IV Titration 100 Amount cefTRIAXone 1 gm In 100 Sodium Chloride 0.9% 50 ml @ 100 mls/hr IVPB Q12H [facility] Rx#:[id number] Oral 780 240 Output: Urine 100 Other: Voiding Method Indwelling Catheter Indwelling Catheter Indwelling Catheter # Voids 0 - Exam -GENERAL: The patient is more awake today. She is calm, she answers some questions appropriately however she still confused to time place and person. She follows commands easily. She is not in distress HEENT: Pupils are round and equally reacting to light. EOMI. No scleral icterus. No conjunctival pallor. Normocephalic, atraumatic. No pharyngeal erythema. No thyromegaly. CARDIOVASCULAR: S1 and S2 present. No murmurs, rubs, or gallops. PULMONARY: Chest is clear to auscultation, no wheezing or crackles. ABDOMEN: Soft, nontender, nondistended, normoactive bowel sounds. No palpable organomegaly. MUSCULOSKELETAL: No joint swelling or deformity. EXTREMITIES: No cyanosis, clubbing, or pedal edema. -NEUROLOGICAL: She has mild facial deviation to the left, she has mild slurred speech, rest of cranial nerves are grossly intact, strength is 5/5 and sensation is intact in all 4 extremities. Meningeal signs are absent. SKIN: No rashes. no petechiae. - Labs CBC & Chem 7: 07/05/20 06:34 07/05/20 06:34 Labs: Abnormal Lab Results - Last 24 Hours (Table) 07/05/20 07/05/20 07/06/20 Range/Units 17:02 21:10 06:05 POC Glucose (mg/dL) 238 H 183 H 145 H (75-99) mg/dL 07/06/20 Range/Units 11:59 POC Glucose (mg/dL) 127 H (75-99) mg/dL Microbiology - Last 24 Hours (Table) 07/02/20 11:59 Blood Culture - Preliminary Blood No Growth after 72 hours Assessment and Plan Assessment: sepsis of unknown source, possible UTI and pyelonephritis Metabolic encephalopathy secondary to above End-stage renal disease on hemodialysis hypertension with urgency type 2 diabetes mellitus GERD Hyperlipidemia Osteoarthritis History of left breast cancer right eye diabetic retinopathy, with vision problems Plan: Continue with antibiotics as above and consult infectious disease team. Continue with the clonidine and labetalol when necessary and hydralazine when necessary and monitor blood pressure closely, discussed with the staff Follow-up recommendation by neurology, nephrology and infectious disease. Continue with hemodialysis as per nephrology team recommendation resume her oral medication DVT prophylaxis, Eliquis GI prophylaxis: Pepcid Prognosis is guarded
[2020-07-06] MEDS ORDERED: cloNIDine 0.1 MG/24HR PATCH TRANSDERM SCH (13:30)
--- NOTE | 2020-07-06 14:05 | PN ---
PROGRESS NOTE DATE OF SERVICE: 07/06/2020 REASON FOR FOLLOWUP: Fever, possible UTI. INTERVAL HISTORY: The patient is currently afebrile. The patient is breathing comfortably, currently on room air. Denies having any chest pain or shortness of breath. No abdominal pain, no diarrhea. PHYSICAL EXAMINATION: Blood pressure 110/52 with a pulse of 56, temperature is 97.7, she is 96% on room air. General description is an elderly female, lying in bed in no distress. RESPIRATORY SYSTEM: Unlabored breathing, decreased breath sounds in the base, with no wheeze. HEART: S1, S2. Regular rate and rhythm. ABDOMEN: Soft, no tenderness. LABS: No new labs have been obtained today. Chest x-ray was negative yesterday. DIAGNOSTIC IMPRESSION AND PLAN: Patient admitted to the hospital with fever and possible UTI as the patient mixed urine. Culture has been resistant pathogen. The patient did well on Rocephin. Finish a short course of oral Ceftin for about a week. MMODL / IJN: [id number] /
--- NOTE | 2020-07-06 15:23 | PN ---
PROGRESS NOTE Patient is seen for followup for end-stage renal disease. She is currently awake, comfortable, in no acute distress. The patient is answering questions appropriately. On examination, blood pressure was 133/64, heart rate 66 per minute. She is afebrile. EXAMINATION OF THE HEART: S1 and S2. EXAMINATION OF LUNGS: Bilateral breath sounds are heard. ABDOMEN: Soft, non-tender. Examination of lower extremities shows no significant edema. OPERATIONS COORDINATOR exam is grossly intact. Labs are not available from today. From yesterday, potassium was 3.3. ASSESSMENT: 1. End-stage renal disease, on hemodialysis on a Saturday, Saturday, Saturday schedule. We will arrange for hemodialysis today. Patient did get dialyzed yesterday. 2. Volume overload. Expect improvement with continued dialysis. 3. Mental status changes and weakness with high suspicion for acute cerebrovascular accident, although CT and MRI have not shown any acute findings. Strength has improved as well along with improvement in mentation. 4. Chronic kidney disease mineral bone disorder. 5. Hypertension, currently better controlled. PLAN: Hemodialysis today. The hydralazine was decreased. I will decrease it further and we can also decrease the clonidine patch to 0.1 mg. MMODL / IJN: [id number] /
[2020-07-06 16:38] LABS: Glucose,Whole Blood 262 mg/dL (75-99)
--- NOTE | 2020-07-06 16:45 | P.PN ---
Subjective Progress Note Date: 07/06/20 07/06/2020: Patient is fully alert and awake, in no distress. Patient is very pleasant. I was able to contact patient's son carrie on the phone, who provided significant piece of information. He states that patient suffered from a fall in early 2018, and suffered from hip fracture. After appropriate treatment, patient was transferred to a long-term where she has been living in [facility]. Patient has not walked on her own since then. Prior to this fall, she used to walk with a cane for previous 2-3 years. Patient also suffered from another fall in July 2019, when she was trying to get off the toilet, slipped and fell. She had a mild wrist fracture. Patient's son states that soraida banks has been forgetful, sometimes talking to carrie on the phone, thinks that she is talking to Santi, her other son, and vice versa. Otherwise she knows where she is at, and knows family members. Patient's son carrie also mentioned that patient has no cousins around, as she used to live in [place] in the past. Her only relatives are 2 sons carrie and Santi. He also mentions that patient has diabetes for 12 years, also on hemodialysis for last 2 years, 3 times a week. Patient's sons have not met her mother since November, since pandemic started. Patient's son also concurred that she has left foot drop for years. 07/05/2020: Patient is much more alert and awake. Patient denies headache. Soraida banks tells me that she has 2 sons, carrie is involved in her care. Patient later states that she lives with her cousin, as her house has been told down. Patient does have issues with balance. Patient states that she sometimes speaks urine. Telemetry monitoring showing sinus bradycardia and upper 40s with some PVCs. 07/04/2020: Patient was seen for a follow-up. Patient was admitted on 020 with altered mental status. CT head showed no acute process. CTA revealed no signs of large vessel occlusion. Patient is laying comfortably in the bed. Offers no complaints. Does have mild headache. MRI of the brain without contrast revealed cerebral atrophy. Hydrocephalus. No obstructing lesion. Mild linear increased signal along the periventricular white matter consistent with flow related phenomenon. There is also some chronic small vessel ischemia. Demyelinating disease is not excluded. White matter pattern is not typical for demyelinating disease. Overall, no acute stroke. On my exam, there is no hydrocephalus, probably cerebral atrophy from dementia. Objective - Vital Signs Vital signs: Vital Signs Temp 97.7 F 07/06/20 15:38 Pulse 52 L 07/06/20 14:09 Resp 20 07/06/20 15:38 BP 124/45 07/06/20 14:09 Pulse Ox 96 07/06/20 07:46 Intake & Output 07/05/20 07/06/20 07/06/20 18:59 06:59 18:59 Intake Total 880 240 Output Total 100 2300 Balance 880 0 Weight 87.5 kg 87.5 kg Intake: Intake, IV Titration 100 Amount cefTRIAXone 1 gm In 100 Sodium Chloride 0.9% 50 ml @ 100 mls/hr IVPB Q12H [facility] Rx#:[id number] Oral 780 240 Output: Urine 100 Hemodialysis 2300 Other: Voiding Method Indwelling Catheter Indwelling Catheter Indwelling Catheter # Voids 0 1 - Exam On examination patient is fully alert and awake. Her speech is clear with no ap hasia or dysarthria. Patient knows that it is June 2020 in that she is in [place] in the hospital although does not know the name. Patient knows name of the current president, and that she lives in [facility]. Patient states she has a cousin with whom she was living for a month, although patient's son has mentioned that she does not have any cousin in [place]. She has positive visuospatial apraxia, positive palmomental reflex. Her muscle strength is normal in the arms. Patient's strength is normal in the right leg. She has a flail left foot. She has chronic foot drop on the left. - Labs CBC & Chem 7: 07/05/20 06:34 07/05/20 06:34 Labs: Abnormal Lab Results - Last 24 Hours (Table) 07/05/20 07/05/20 07/06/20 Range/Units 17:02 21:10 06:05 POC Glucose (mg/dL) 238 H 183 H 145 H (75-99) mg/dL 07/06/20 Range/Units 11:59 POC Glucose (mg/dL) 127 H (75-99) mg/dL Microbiology - Last 24 Hours (Table) 07/02/20 11:59 Blood Culture - Preliminary Blood No Growth after 96 hours Assessment and Plan Assessment: * Altered mental status, likely due to metabolic encephalopathy, now seems to have resolved. No evidence of acute stroke noted on MRI. Patient probably has some degree of underlying cognitive impairment. * End-stage renal disease on hemodialysis * Hypertension * Diabetes, well controlled. * CAD * History of CHF. Plan: * MRI of brain revealed no acute stroke. Cerebral atrophy, prominence of the ventricles. Some concern of hydrocephalus, although not very significant on my review. I spoke to patient's son Mr. Thomason on the phone. Patient has not been ambulatory since September 2018 after she suffered from a fall and hip fracture. Patient's brain MRI does not point towards obvious hydrocephalus/NPH. I think at this point further workup into NPH is probably not indicated. Consider follow-up MRI/computed tomography scan of head in 6- 12 months to make sure stability. If the hydrocephalus worsens, then may consider neurosurgical evaluation. Suggest follow-up with neurologist as outpatient to evaluate for underlying cognitive impairment. * EEG was abnormal showing generalized slowing and decreased amplitude in the right temporal occipital region during photic stimulation. This is consistent with toxic metabolic encephalopathy or hypoxic encephalopathy. No epileptiform activity seen. * 2-D echo showed normal left-ventricular size. Moderate concentric LVH. EF is 55-60%. Right ventricle is mildly enlarged. * Hemoglobin A1c 5.6, TSH 1.40 * Lipid panel with cholesterol 144, LDL 62, HDL 29 and triglycerides 267. * Patient currently on Eliquis 2.5 mg twice a day and aspirin 81 mg. * Consider follow-up with neurology outpatient to evaluate for underlying cognitive impairment/dementia. * Neurologically clear for discharge.
[2020-07-06 20:41] LABS: Glucose,Whole Blood 136 mg/dL (75-99)
[2020-07-07] MEDS: LABETALOL 5 MG/ML VIAL MDV IVP SCH ×4 (00:47→11:28)
[2020-07-07 06:14] LABS: Glucose,Whole Blood 133 mg/dL (75-99)
[2020-07-07] MEDS: SEVELAMER 800 MG TAB PO SCH ×3 (06:38→16:51)
[2020-07-07] MEDS: APIXABAN 2.5 MG TABLET PO SCH ×2 (06:38→16:52)
[2020-07-07] MEDS: hydrALAZINE HCL 25 MG TAB PO SCH ×2 (07:53→16:52)
[2020-07-07] MEDS: ATORVASTATIN 80 MG TAB PO SCH (07:53)
[2020-07-07] MEDS: ASPIRIN 81 MG PO SCH (07:54)
[2020-07-07] MEDS: CHOLECALCIFEROL 1,000 UNIT TAB PO SCH (07:54)
[2020-07-07] MEDS: FAMOTIDINE 20 MG TAB PO SCH (07:54)
[2020-07-07] MEDS: atenoloL 50 MG TAB PO SCH (07:54)
[2020-07-07] MEDS: amLODIPine 5 MG TAB PO SCH (07:54)
[2020-07-07 11:16] VITALS: TEMP 97.7
[2020-07-07 12:06] LABS: Glucose,Whole Blood 159 mg/dL (75-99)
[2020-07-07 13:14] LABS: Calcium 8.8 mg/dL (8.4-10.2)
--- NOTE | 2020-07-07 13:31 | P.DS ---
Providers Date of admission: 07/04/20 07:50 Attending physician: Willian Valdez MD Consults: 07/01/20 17:28 Consult Physician Routine Consulting Provider: Keshav Trujillo Consult Reason/Comments: known Do you want consulting provider notified?: Yes Consult Physician Routine Consulting Provider: Michelle Bridges Consult Reason/Comments: dialysis Do you want consulting provider notified?: Yes 07/02/20 07:31 Consult Physician Urgent Consulting Provider: Mariella Brown Consult Reason/Comments: fever Do you want consulting provider notified?: Yes Primary care physician: Vladislav Long Hospital Course: diagnoses: sepsis of unknown source, possible UTI and pyelonephritis Metabolic encephalopathy secondary to above. Improved and patient is fully oriented on discharge and significantly improved End-stage renal disease on hemodialysis Occasional dizziness with hydrocephalus, we recommend outpatient follow-up with neurologist hypertension with urgency type 2 diabetes mellitus GERD Hyperlipidemia Osteoarthritis History of left breast cancer right eye diabetic retinopathy, with vision problems Hospital course: this is a pleasant 74 years old female with past medical history of end-stage renal disease on hemodialysis, diabetes mellitus, GERD, hypertension, hyperlipidemia, osteoarthritis, history of left breast cancer, right eye diabetic retinopathy, with vision problems, history of pneumonia, chronic heart failure. Patient could not provide information so it was obtained from staff and medical records. No family at bedside, family was tried to be contacted with no success. patient presents because of altered mental status and she has a fever on admission. Patient was transferred from [facility] for decreased alertness patient found to have sepsis secondary to UTI/possible pyelonephritis. She was treated with broad-spectrum antibiotics with IV vancomycin and ceftriaxone.urine culture did not grow bacteria for 18 hours. patient showed significant improvement and her mentation is improved and on the day of discharge she was awake, alert awake and oriented to time place and person, she still have some confusion about when she was in the hospital and patient was reoriented. Patient has been evaluated by neurologist as well and MRI of the brain showing cerebral atrophy, hydrocephalus and possible demyelinating disease. Her blood pressure regimen was changed as she has significantly elevated hypertensive urgency on admission, currently she was placed on mg twice a day and hydralazine 50 mg 3 times a day and her blood pressure on discharge was 139/56 with heart rate of 76. Patient is back to her or close to her baseline, patient thinks she can be discharged to [facility]CF again Patient was cleared for discharge by all consultants including infectious disease, snowmaker, neurologist teams Problems and management plan were discussed with the patient and he verbalized understanding and acceptance Patient was found stable and can be discharged home however he needs follow-up as an outpatient. Patient was instructed to follow up with PCP within one week and patient agrees. Patient also was instructed to follow up with the neurologist in 1-2 weeks and she agrees: [place] appointments -Gen: patient is a AAOx3, fully oriented,no distress CVS: S1-S2, RRR, no murmur Lungs: B/L CTA, no wheezing Abdomen: soft, no distention, no tenderness, positive bowel sounds Extremity: no leg edema or induration Time spent more than 35 minutes Patient Condition at Discharge: Serious Plan - Discharge Summary New Discharge Prescriptions: No Action Pantoprazole Sodium [Protonix] 40 mg PO DAILY@0600 Letrozole [Femara] 2.5 mg PO DAILY@0700 Acetaminophen Tab [Tylenol] 325 mg PO HS@2100 Cholecalciferol (Vitamin D3) [Vitamin D3] 2,000 unit PO DAILY@1200 Atorvastatin [Lipitor] 10 mg PO HS@2100 Simethicone [Gas-X] 125 mg PO TID@0500,1300,2100 Sevelamer [Renvela] 800 mg PO TID@0700,1200,1700 Sennosides [Senna] 17.2 mg PO DAILY@1200 Magnesium Hydroxide [Milk of Magnesia Concentrate] 7,200 mg PO DAILY PRN PRN Reason: Constipation HYDROcodone/APAP 5-325MG [Branford 5-325] 1 tab PO Q6HR PRN PRN Reason: Pain Midodrine [ProAmatine] 5 mg PO MOWEFR Melatonin 5 mg PO MOWEFR Lidocaine-Prilocaine Cream [Emla Cream 2.5%/2.5%] 1 applic TOPICAL MOWEFR Insulin Glargine,Hum.rec.anlog [Lantus Solostar] 10 unit SQ HS@2100 Loperamide [Imodium] 2 mg PO Q1H PRN PRN Reason: Diarrhea [place]-3 Fatty Acids/Fish Oil [Fish Oil 1,000 mg Softgel] 1 cap PO DAILY@1200 Fluticasone Propionate [Flonase Allergy Relief] 1 spray EA NOSTRIL DAILY@0700 guaiFENesin [Diabetic Tussin Ex] 200 mg PO Q4HR PRN PRN Reason: Cough DULoxetine HCL [Cymbalta] 30 mg PO DAILY@0700 Loratadine [Claritin] 10 mg PO Q48H Benzocaine/Menthol Lozeng [Cepacol lozenge] 1 lozenge MUCOUS MEM Q6H PRN PRN Reason: COLD, SORE THROAT atenoloL [Tenormin] 50 mg PO DAILY@1700 Acetaminophen [Tylenol] 650 mg PO Q6H PRN PRN Reason: Pain Or Fever > 100.5 Apixaban [Eliquis] 2.5 mg PO BID@0700,1700 Montelukast [Singulair] 10 mg PO HS@2100 Discharge Medication List Pantoprazole Sodium [Protonix] 40 mg PO DAILY@0600 02/05/14 [History] Letrozole [Femara] 2.5 mg PO DAILY@0700 07/31/18 [History] Acetaminophen Tab [Tylenol] 325 mg PO HS@209908/13/18 [History] Cholecalciferol (Vitamin D3) [Vitamin D3] 2,000 unit PO DAILY@1200 08/13/18 [History] Atorvastatin [Lipitor] 10 mg PO HS@209909/24/18 [History] Acetaminophen [Tylenol] 650 mg PO Q6H PRN 06/19/20 [History] Benzocaine/Menthol Lozeng [Cepacol lozenge] 1 lozenge MUCOUS MEM Q6H PRN 06/19/20 [History] DULoxetine HCL [Cymbalta] 30 mg PO DAILY@0706/19/20 [History] Fluticasone Propionate [Flonase Allergy Relief] 1 spray EA NOSTRIL DAILY@0706/19/20 [History] HYDROcodone/APAP 5-325MG [Branford 5-325] 1 tab PO Q6HR PRN 06/19/20 [History] Insulin Glargine,Hum.rec.anlog [Lantus Solostar] 10 unit SQ HS@209906/19/20 [History] Lidocaine-Prilocaine Cream [Emla Cream 2.5%/2.5%] 1 applic TOPICAL MOWEFR 06/19/20 [History] Loperamide [Imodium] 2 mg PO Q1H PRN 06/19/20 [History] Loratadine [Claritin] 10 mg PO Q48H 06/19/20 [History] Magnesium Hydroxide [Milk of Magnesia Concentrate] 7,200 mg PO DAILY PRN 06/19/20 [History] Melatonin 5 mg PO MOWEFR 06/19/20 [History] Midodrine [ProAmatine] 5 mg PO MOWEFR 06/19/20 [History] [place]-3 Fatty Acids/Fish Oil [Fish Oil 1,000 mg Softgel] 1 cap PO DAILY@1200 06/19/20 [History] Sennosides [Senna] 17.2 mg PO DAILY@1200 06/19/20 [History] Sevelamer [Renvela] 800 mg PO TID@0700,1200,1700 06/19/20 [History] Simethicone [Gas-X] 125 mg PO TID@0500,1300,2100 06/19/20 [History] atenoloL [Tenormin] 50 mg PO DAILY@17006/19/20 [History] guaiFENesin [Diabetic Tussin Ex] 200 mg PO Q4HR PRN 06/19/20 [History] Apixaban [Eliquis] 2.5 mg PO BID@0700,1700 07/01/20 [History] Montelukast [Singulair] 10 mg PO HS@2100 07/01/20 [History] Follow up Appointment(s)/Referral(s): Jordan Juarez MD [Medical Doctor] - 1 Week (neurologist ) Keshav Stone MD [STAFF PHYSICIAN] - 1 Week (neurologist ) Yonatan Cui DO [STAFF PHYSICIAN] - 1 Week (neurologist ) Vladislav Long MD [Primary Care Provider] - 1-2 days
--- NOTE | 2020-07-07 14:13 | PN ---
PROGRESS NOTE Patient is seen for followup for end-stage renal disease. She is currently in bed, comfortable, awake, not in any acute distress. Mentation has improved significantly. Blood pressure is also much improved. PHYSICAL EXAMINATION: On examination today, blood pressure is 150/70, heart rate 98 per minute, patient is afebrile. Examination of the heart S1, S2. Examination of the lungs, bilateral breath sounds are heard. Abdomen is soft, nontender. Examination of the lower extremities shows no significant edema. HAND TILE MAKER exam grossly intact. Patient is moving all 4 extremities although she still appears to be slightly weak. LABS: Not available from today. ASSESSMENT: 1. End-stage renal disease, on hemodialysis on a Saturday, Saturday, Saturday schedule. We will arrange for hemodialysis tomorrow. 2. Mental status changes with weakness suggestive of acute CV on initial admission, although brain CT and MRI did not show any new findings. 3. Hypertension, initially uncontrolled, currently much better controlled with blood pressure medicines, currently decreased. 4. CKD mineral bone disorder. PLAN: Check labs today and we will arrange for hemodialysis in a.m. Continue to work on decreasing antihypertensive medications. MMODL / IJN: [id number] /
[2020-07-07 14:57] VITALS: BP 134/60; PULSE 53; RESP 20
--- NOTE | 2020-07-07 15:07 | P.PN ---
Subjective Progress Note Date: 07/07/20 07/07/2020: Patient was sleeping as I entered the room. Upon awaking her, patient was alert and awake, at her baseline. Offers no complaints. Patient was concerned about "fluid in the brain". I informed her that at this time no further treatment is necessary. She probably should undergo a repeat CT/MRI of the brain in 6 months. Follow up with neurologist as outpatient. 07/06/2020: Patient is fully alert and awake, in no distress. Patient is very pleasant. I was able to contact patient's son carrie on the phone, who provided significant piece of information. He states that patient suffered from a fall in early 2018, and suffered from hip fracture. After appropriate treatment, patient was transferred to a senior care where she has been living in [facility]. Patient has not walked on her own since then. Prior to this fall, she used to walk with a cane for previous 2-3 years. Patient also suffered from another fall in July 2019, when she was trying to get off the toilet, slipped and fell. She had a mild wrist fracture. Patient's son states that patient has been forgetful, sometimes talking to carrie on the phone, thinks that she is talking to Santi, her other son, and vice versa. Otherwise she knows where she is at, and knows family members. Patient's son carrie also mentioned that patient has no cousins around, as she used to live in [place] in the past. Her only relatives are 2 sons carrie and Santi. He also mentions that patient has diabetes for 12 years, also on hemodialysis for last 2 years, 3 times a week. Patient's sons have not met her mother since November, since pandemic started. Patient's son also concurred that she has left foot drop for years. 07/05/2020: Patient is much more alert and awake. Patient denies headache. Patient tells me that she has 2 sons, carrie is involved in her care. Patient later states that she lives with her cousin, as her house has been told down. Patient does have issues with balance. Patient states that she sometimes speaks urine. Telemetry monitoring showing sinus bradycardia and upper 40s with some PVCs. 07/04/2020: Patient was seen for a follow-up. Patient was admitted on 06/30/2020 with altered mental status. CT head showed no acute process. CTA revealed no signs of large vessel occlusion. Patient is laying comfortably in the bed. Offers no complaints. Does have mild headache. MRI of the brain without contrast revealed cerebral atrophy. Hydrocephalus. No obstructing lesion. Mild linear increased signal along the periventricular white matter consistent with flow related phenomenon. There is also some chronic small vessel ischemia. Demyelinating disease is not excluded. White matter pattern is not typical for demyelinating disease. Overall, no acute stroke. On my exam, there is no hydrocephalus, probably cerebral atrophy from dementia. Objective - Vital Signs Vital signs: Vital Signs Temp 97.7 F 07/07/20 08:00 Pulse 53 L 07/07/20 12:00 Resp 20 07/07/20 12:00 BP 134/60 07/07/20 12:00 Pulse Ox 98 07/07/20 12:00 Intake & Output 07/06/20 07/07/20 07/07/20 18:59 06:59 18:59 Intake Total 240 360 Output Total 2300 0 Balance -2060 0 360 Weight 87.5 kg 96.5 kg Intake: Oral 240 360 Output: Urine 0 Hemodialysis 2300 Other: Voiding Method Indwelling Catheter Indwelling Catheter Indwelling Catheter # Voids 1 - Exam On examination patient is fully alert and awake. Her speech is clear with no aphasia or dysarthria. Her muscle strength is normal in the arms. Patient's strength is normal in the right leg. She has a flail left foot. She has chronic foot drop on the left. - Labs CBC & Chem 7: 07/05/20 06:34 07/07/20 12:51 Labs: Abnormal Lab Results - Last 24 Hours (Table) 07/06/20 07/06/20 07/07/20 Range/Units 16:37 20:40 06:13 BUN (7-17) mg/dL Creatinine (0.52-1.04) mg/dL Glucose (74-99) mg/dL POC Glucose (mg/dL) 262 H 136 H 133 H (75-99) mg/dL 07/07/20 07/07/20 Range/Units 11:59 12:51 BUN 19 H (7-17) mg/dL Creatinine 4.24 H (0.52-1.04) mg/dL Glucose 163 H (74-99) mg/dL POC Glucose (mg/dL) 159 H (75-99) mg/dL Microbiology - Last 24 Hours (Table) 07/02/20 11:59 Blood Culture - Preliminary Blood No Growth after 120 hours Assessment and Plan Assessment: * Altered mental status, likely due to metabolic encephalopathy, now seems to have resolved. No evidence of acute stroke noted on MRI. Patient probably has some degree of underlying cognitive impairment. * End-stage renal disease on hemodialysis * Hypertension * Diabetes, well controlled. * CAD * History of CHF. Plan: * MRI of brain revealed no acute stroke. Cerebral atrophy, prominence of the ventricles. Some concern of hydrocephalus, although not very significant on my review. I spoke to patient's son Mr. Thomason on the phone. Patient has not been ambulatory since September 2018 after she suffered from a fall and hip fracture. Patient's brain MRI does not point towards obvious hydrocephalus/NPH. I think at this point further workup into NPH is probably not indicated. Consider follow-up MRI/computed tomography scan of head in 6- 12 months to make sure stability. If the hydrocephalus worsens, then may consider neurosurgical evaluation. Suggest follow-up with neurologist as outpatient to evaluate for underlying cognitive impairment. I discussed with patient and reiterated about above recommendations. She did express understanding. * EEG was abnormal showing generalized slowing and decreased amplitude in the right temporal occipital region during photic stimulation. This is consistent with toxic metabolic encephalopathy or hypoxic encephalopathy. No epi leptiform activity seen. * 2-D echo showed normal left-ventricular size. Moderate concentric LVH. EF is 55-60%. Right ventricle is mildly enlarged. * Hemoglobin A1c 5.6, TSH 1.40 * Lipid panel with cholesterol 144, LDL 62, HDL 29 and triglycerides 267. * Patient currently on Eliquis 2.5 mg twice a day and aspirin 81 mg. * Consider follow-up with neurology outpatient to evaluate for underlying cognit susie impairment/dementia. * Neurologically clear for discharge.
--- NOTE | 2020-07-07 15:52 | PN ---
PROGRESS NOTE DATE OF SERVICE: 07/07/2020 REASON FOR FOLLOWUP: Urinary tract infection. INTERVAL COURSE: The patient is currently afebrile. Patient is breathing comfortably. The patient has been sleepy, lethargic and no recorded history of vomiting or diarrhea has been reported. PHYSICAL EXAMINATION: Blood pressure 150/70 with a pulse of 90, temperature 97.7. She is 98% on room air. General description is an elderly female, lying in bed in no distress. RESPIRATORY SYSTEM: Unlabored breathing, decreased breath sounds at the base, no wheeze. HEART: S1, S2. Regular rate and rhythm. ABDOMEN: Soft, no tenderness. LABS: Blood and urine culture have been negative. Chest x-ray was negative. No CBC was done today. DIAGNOSTIC IMPRESSION AND PLAN: Patient admitted to the hospital with fever and mental status changes. Concern for possible UTI, clinically responding to Rocephin. Finish therapy with a short course of oral Ceftin. MMODL / IJN: [id number] /
[2020-07-07 17:15] LABS: Glucose,Whole Blood 162 mg/dL (75-99)
--- NOTE | 2020-07-08 09:56 | CDI ---
Documentation Clarification Form Date: 07/08/20 From: Jina Mattson CCS Phone: If you have a question about this query, please contact Renae Garcia, Earth Burner at [phone] between 8am and 5pm. Admit Date: 07/07/20 Discharge Date:07/07/20 Patient Name: Kristin Allred Visit Number: [id number] ATTENTION: The Clinical Documentation Specialists (CDI) and [facility] Coding Staff appreciate your assistance in clarifying documentation. Please respond to the clarification below the line at the bottom and electronically sign. The CDI & [facility] Coding staff will review the response and follow-up if needed. Please note: Queries are made part of the Legal Health Record. If you have any questions, please contact the author of this message via ITS. Dear Dr. Valdez, CHF is documented in the Consult 07/02, PNs. PNs 07/05, 07/06 document: Volume overload, currently improving. History/Risk Factors: HTN, ESRD, DM, Obesity, CAD Clinical Indicators: Volume overload, Hx CHF VS/Pulse OX: BP 219/89, RR 18, CA 87, O2 Sat 93 BNP: None Echocardiogram Results: This was a technically adequate study. The left ventricular size is normal.There is moderate concentric left ventricular hypertrophy.Overall left ventricular systolic function is normal with, an EF between 55 - 60 %.The diastolic filling pattern is normal for the age of the patient 20.30. Chest X Ray: There is some mild pleural reaction and atelectasis at the right lung base that appears new compared to yesterday.No heart failure seen.No pulmonary consolidation. Treatment: Hydralazine 10 mg IV Q6HR, Hemodialysis In your professional opinion, can you please clarify the acuity and type of CHF if known? Systolic Heart Failure: Acute Chronic Acute on Chronic Diastolic Heart Failure: Acute Chronic Acute on Chronic Systolic & Diastolic Heart Failure: Acute Chronic Acute on Chronic Heart Failure Unable to Determine Other, please specify Unable to Determine MTDD
--- NOTE | 2020-07-08 10:13 | CDI ---
Documentation Clarification Form Date: 07/08/20 From: Jina Mattson CCS Phone: If you have a question about this query, please contact Renae Garcia, Casing Builder at [phone] between 8am and 5pm. Admit Date: 07/04/20 Discharge Date:07/07/20 Patient Name: Kristin Allred Visit Number: [id number] ATTENTION: The Clinical Documentation Specialists (CDI) and [facility] Coding Staff appreciate your assistance in clarifying documentation. Please respond to the clarification below the line at the bottom and electronically sign. The CDI & [facility] Coding staff will review the response and follow-up if needed. Please note: Queries are made part of the Legal Health Record. If you have any questions, please contact the author of this message via ITS. Dear Dr. Valdez, Stage II pressure ulcer right buttock was documented in the Wound Assessment and Dietary Consult notes. History/Risk Factors: ESRD, HTN, DM, Obesity, Sepsis, Encephalopathy Clinical Indicators: Stage II pressure ulcer Location: Right buttock Wound description: Stage II pressure injury Treatment: Wound care Consults: Wound Care In your professional opinion, can you please clarify if you agree with the diagnosis of stage II pressure injury right buttock POA as documented in Wound Assessment and Dietary Consult notes: Stage 2 Pressure/Decubitus Ulcer- Right Buttock (Partial thickness, loss of dermis, pink wound bed) Pressure injury ruled out Other condition, please specify Unable to determine Unable to determine MTDD
== END 2020-07-07 18:20 | DRG 871 ==
LOC: EC 15:03 → 3SCARD 17:27 → OBSVTOIN 07-04 07:50
PROVIDERS: ADMIT Internal Medicine; ATTEND Internal Medicine
PROC: 5A1D70Z Performance of Urinary Filtration, Intermittent, Less than 6 Hours Per Day (ICD-10-PCS; principal; 2020-07-02)
DX: A41.9 Sepsis, unspecified organism (principal); N18.6 End stage renal disease; G92 Toxic encephalopathy; I13.2 Hypertensive heart and chronic kidney disease with heart failure and with stage 5 chronic kidney disease, or end stage renal disease; G91.2 (Idiopathic) normal pressure hydrocephalus; R47.01 Aphasia; R41.4 Neurologic neglect syndrome; N10 Acute pyelonephritis; Z20.828 Contact with and (suspected) exposure to other viral communicable diseases; E83.9 Disorder of mineral metabolism, unspecified; E11.319 Type 2 diabetes mellitus with unspecified diabetic retinopathy without macular edema; E11.42 Type 2 diabetes mellitus with diabetic polyneuropathy; I50.9 Heart failure, unspecified; E11.22 Type 2 diabetes mellitus with diabetic chronic kidney disease; I95.9 Hypotension, unspecified; F03.90 Unspecified dementia, unspecified severity, without behavioral disturbance, psychotic disturbance, mood disturbance, and anxiety; Z99.2 Dependence on renal dialysis; Z66 Do not resuscitate; M19.90 Unspecified osteoarthritis, unspecified site; K21.9 Gastro-esophageal reflux disease without esophagitis; E78.5 Hyperlipidemia, unspecified; M21.372 Foot drop, left foot; E87.6 Hypokalemia; R00.1 Bradycardia, unspecified; I16.0 Hypertensive urgency; I25.10 Atherosclerotic heart disease of native coronary artery without angina pectoris; E66.9 Obesity, unspecified; Z95.828 Presence of other vascular implants and grafts; Z71.3 Dietary counseling and surveillance; Z68.35 Body mass index [BMI] 35.0-35.9, adult; Z79.899 Other long term (current) drug therapy; Z79.811 Long term (current) use of aromatase inhibitors; Z79.01 Long term (current) use of anticoagulants; Z87.01 Personal history of pneumonia (recurrent); Z87.440 Personal history of urinary (tract) infections; Z85.3 Personal history of malignant neoplasm of breast; Z90.49 Acquired absence of other specified parts of digestive tract; Z98.51 Tubal ligation status; Z98.890 Other specified postprocedural states; Z98.42 Cataract extraction status, left eye; Z98.41 Cataract extraction status, right eye; Z96.1 Presence of intraocular lens; Z87.891 Personal history of nicotine dependence; Z91.81 History of falling; Z87.81 Personal history of (healed) traumatic fracture; Z88.0 Allergy status to penicillin; Z83.3 Family history of diabetes mellitus
CPT/HCPCS: 36415; 70450; 70496; 70498; 70551; 71045; 71046; 80048; 80053; 80061; 80076; 80202; 80306; 80320; 81001; 82140; 82550; 83036; 83721; 83735; 84145; 84443; 84484; 85025; 85610; 85730; 86140; 87040; 87086; 87635; 90935; 93005; 93306; 95819; 96361; 96365; 96367; 96375; 96376; 99285

== ENCOUNTER 2022-12-04 19:41 | Inpatient (IN) | payer MEDICARE, OTHER ==
--- NOTE | 2022-12-04 20:17 | ED ---
Weakness HPI - General Chief complaint: Weakness Stated complaint: weakness Time Seen by Provider: 12/04/22 19:43 Source: patient, RN notes reviewed Mode of arrival: EMS Limitations: no limitations - History of Present Illness Initial comments: This is a 77-year-old female who presents to the emergency department for generalized weakness. Patient is a poor historian. States that she has felt weak over the last 2 days. She is on hemodialysis Saturday, Saturday, and Saturday. She has been on dialysis for 3-4 years. Unsure who her recreation clerk is. She missed dialysis yesterday because of not feeling well. Today she is now experiencing increased shortness of breath. She knows her name and the president. She does not know the year, month, or where she is. She presents from [facility]. There is an area on her documentation with a phone number of who to call at [facility]. I contacted this number, looking for a Toño Delgado RN. I was told that they do not know who this is and there is no one employed there by that name. I was transferred to the emergency department at [facility]. I was able to speak with a nurse who got report directly from [facility]. States that the patient is usually A and O 4 at baseline. They've not measured any fevers, however they state that the patient has looked "cardozo" and is not doing well. She was supposed to see Dr. Adams, her oncologist, for hx of breast cancer, today and refused to go. I reviewed the multiple documents that were sent with the patient and listed pertinent information below: Additional Information Based on Documentation Review From [facility]: 1200 mL fluid restriction every 24 hours. Ambulates only with human assistance Needs assistance bathing, dressing, toileting, and transferring. Eats independently. Continent with urine and bowels. Alert, oriented, and follows instructions at baseline. MD Complaint: generalized weakness - Related Data Home Medications Medication Instructions Recorded Confirmed Letrozole [Femara] 2.5 mg PO DAILY 07/31/18 12/04/22 Acetaminophen Tab [Tylenol] 650 mg PO Q6H PRN 08/13/18 12/04/22 Acetaminophen [Tylenol] 650 mg PO MOWEFR PRN 06/19/20 12/04/22 Lidocaine-Prilocaine Cream [Emla 1 applic TOPICAL MOWEFR 06/19/20 12/04/22 Cream 2.5%/2.5%] Midodrine [ProAmatine] 5 mg PO MOWEFR 06/19/20 12/04/22 Sevelamer [Renvela] 1,600 mg PO TID 06/19/20 12/04/22 Simethicone [Gas-X] 125 mg PO Q8H PRN 06/19/20 12/04/22 Apixaban [Eliquis] 2.5 mg PO BID 07/01/20 12/04/22 Atorvastatin [Lipitor] 80 mg PO HS 12/04/22 12/04/22 Cranberry Fruit [Cranberry] 465 mg PO DAILY 12/04/22 12/04/22 Cyanocobalamin (Vitamin B-12) 1,000 mcg PO DAILY 12/04/22 12/04/22 [Vitamin B-12] Dialyvite 1 tab PO DAILY 12/04/22 12/04/22 Ergocalciferol (Vitamin D2) 1,250 mcg PO FR 12/04/22 12/04/22 [Drisdol (50,000 Iu)] Escitalopram [Lexapro] 5 mg PO DAILY 12/04/22 12/04/22 Ferrous Sulfate [Feosol] 325 mg PO DAILY 12/04/22 12/04/22 Hydrocortisone [Anusol-Hc] 1 applic RECTAL Q8H PRN 12/04/22 12/04/22 Loperamide [Imodium] 2 mg PO QID PRN MDD 8 MG 12/04/22 12/04/22 Loratadine [Claritin] 10 mg PO DAILY PRN 12/04/22 12/04/22 Meclizine [Antivert] 12.5 mg PO DAILY 12/04/22 12/04/22 Omeprazole 20 mg PO DAILY 12/04/22 12/04/22 Ondansetron [Zofran] 4 mg PO Q6H PRN 12/04/22 12/04/22 Thiamine [Vitamin B-1] 100 mg PO DAILY 12/04/22 12/04/22 atenoloL [Tenormin] 12.5 mg PO DAILY PRN 12/04/22 12/04/22 cloNIDine HCL [Catapres] 0.1 mg PO DAILY PRN 12/04/22 12/04/22 Allergies Allergy/AdvReac Type Severity Reaction Status Date / Time Penicillins Allergy Rash/Hives Verified 12/04/22 22:32 Review of Systems ROS Statement: Those systems with pertinent positive or pertinent negative responses have been documented in the HPI. ROS Other: All systems not noted in ROS Statement are negative. Limitations: ROS unobtainable due to patients medical condition Past Medical History Past Medical History: Cancer, Heart Failure, Diabetes Mellitus, Eye Disorder, GERD/Reflux, Hyperlipidemia, Hypertension, Osteoarthritis (OA), Pneumonia, Renal Disease Additional Past Medical History / Comment(s): HX OF LEFT BREAST CANCER- SX.NEUROPATHY FEET, HANDS, RT EYE DIABETIC RETINOPATHY, STATES LITTLE VISION, HAD A PNE VACCINE NOT SURE OF DATE, HX pulled from previous visit History of Any Multi-Drug Resistant Organisms: None Reported Past Surgical History: Section, Cholecystectomy, Tonsillectomy, Tubal Ligation Additional Past Surgical History / Comment(s): LEFT BREAST LUMPECTOMY- no chemo, no radiation but took hormone pills, D&C, GERSON CATARACT SX-LENS IMPLANTS. Past Anesthesia/Blood Transfusion Reactions: Previous Problems w/ Anesthesia Additional Past Anesthesia/Blood Transfusion Reaction / Comment(s): STATED "TOOK A LONG TIME WAKING UP FROM ANESTHESIA" Past Psychological History: No Psychological Hx Reported Smoking Status: Former smoker Past Alcohol Use History: None Reported Past Drug Use History: None Reported - Past Family History Mother Family Medical History: No Reported History Brother(s) Family Medical History: Diabetes Mellitus General Exam Limitations: no limitations General appearance: alert Head exam: Present: atraumatic, normocephalic, normal inspection Respiratory exam: Present: normal lung sounds bilaterally. Absent: respiratory distress, wheezes, rales, rhonchi, stridor Cardiovascular Exam: Present: regular rate, normal rhythm, normal heart sounds. Absent: systolic murmur, diastolic murmur, rubs, gallop, clicks Neurological exam: Present: alert, other (oriented x1) Psychiatric exam: Present: normal affect, normal mood Skin exam: Present: warm, dry, intact, normal color. Absent: rash Course Vital Signs 12/04/22 12/04/22 12/04/22 19:46 20:20 21:37 Temperature 99 F Pulse Rate 100 100 100 Respiratory 22 20 20 Rate Blood Pressure 136/63 136/63 130/60 O2 Sat by Pulse 98 99 98 Oximetry 12/04/22 12/04/22 22:19 23:00 Temperature Pulse Rate 92 84 Respiratory 16 16 Rate Blood Pressure 112/63 112/63 O2 Sat by Pulse 96 99 Oximetry Medical Decision Making - Medical Decision Making This is a 77-year-old female who presents to the emergency department for generalized weakness. Was pt. sent in by a medical professional or institution? @ -No Did you speak to anyone other than the patient for history? @ -No Did you review nursing and triage notes? @ -Yes, and I agree, it is accurate with regards to the patient's symptoms. Were old charts reviewed? @ -No Differential Diagnosis? @ -Differential Weakness: Hypoglycemia, shock, sepsis, hyponatremia, anemia, infection, VA, ETOH, adverse medicine reaction, overdose, stroke, this is not meant to be an all-inclusive list. EKG interpreted by me (3pts min.)? @ -Sinus tachycardia. Ventricular rate 100 bpm, MN interval 150 ms, QRS duration 100 ms. X-rays interpreted by me (1pt min.)? @ -Chest x-ray obtained. My interpretation reveals small bilateral pleural effusions. What testing was considered but not performed? (CT, X-rays, U/S, labs)? Why? @ -None What meds were considered but not given? Why? @ -None Did you discuss the management of the patient with other professionals? @ -Yes, Dr. Ram, who accepts the patient for admission. Did you reconcile home meds? @ -No Was smoking cessation discussed for >3mins.? @ -No Was critical care preformed (if so, how long)? @ -No Were there social determinants of health that impacted care today? How? (Homelessness, low income, unemployed, alcoholism, drug addiction, trans portation, low edu. Level, literacy, decrease access to med. care, longterm, rehab)? @ -No Was there de-escalation of care discussed even if they declined? (Discuss DNR or withdrawal of care, Hospice)? @ -No What co-morbidities impacted this encounter? (DM, HTN, Smoking, COPD, CAD, Cancer, CVA, Hep., AIDS, mental health diagnosis, sleep apnea, morbid obesity)? @ -ESRD, CHF, breast cancer, DM, HLD, HTN. Was patient admitted / discharged? @ -Admitted. Lab work obtained revealing critically elevated creatinine as expected with end-stage renal disease and missing her dialysis appointment. Hyperkalemia is not evident. BNP is elevated at 29,000. Troponin elevated as well, likely secondary to CHF and renal failure. Patient denies any chest pain. She does have a minor increase in shortness of breath likely secondary to the CHF. Small pleural effusions noted on chest x-ray. Urinalysis consistent with contamination. Patient admitted to medicine for altered mental status and weakness. Nephrology consulted for end-stage renal disease on dialysis with hope for dialysis as scheduled tomorrow. Undiagnosed new problem with uncertain prognosis? @ -None Drug Therapy requiring intensive monitoring for toxicity (Heparin, Nitro, Insulin, Cardizem)? @ -None Were any procedures done? @ -None Diagnosis/symptom? @ -AMS, weakness Acute, or Chronic, or Acute on Chronic? @ -Acute Uncomplicated (without systemic symptoms) or Complicated (systemic symptoms)? @ -Complicated Side effects of treatment? @ -None Exacerbation, Progression, or Severe Exacerbation] @ -Not applicable Poses a threat to life or bodily function? @ -Yes This case was discussed in detail with the attending ED physician, Dr. Goldsmith. Presentation, findings, and treatment plan discussed in detail as well. - Lab Data Result diagrams: 12/04/22 20:19 12/04/22 20:19 Lab Results 12/04/22 12/04/22 12/04/22 Range/Units 20:19 20:19 20:19 WBC 7.0 (3.8-10.6) k/uL RBC 3.96 (3.80-5.40) m/uL Hgb 12.0 (11.4-16.0) gm/dL Hct 37.1 (34.0-46.0) % MCV 93.8 (80.0-100.0) fL MCH 30.4 (25.0-35.0) pg MCHC 32.4 (31.0-37.0) g/dL RDW 16.9 H (11.5-15.5) % Plt Count 108 L (150-450) k/uL MPV 9.8 Neutrophils % 93 % Lymphocytes % 3 % Monocytes % 3 % Eosinophils % 1 % Basophils % 0 % Neutrophils # 6.5 (1.3-7.7) k/uL Lymphocytes # 0.2 L (1.0-4.8) k/uL Monocytes # 0.2 (0-1.0) k/uL Eosinophils # 0.1 (0-0.7) k/uL Basophils # 0.0 (0-0.2) k/uL Anisocytosis Slight PT 12.0 (9.0-12.0) sec INR 1.2 H (<1.2) APTT 24.1 (22.0-30.0) sec Sodium 129 L (137-145) mmol/L Potassium 5.1 (3.5-5.1) mmol/L Chloride 86 L (98-107) mmol/L Carbon Dioxide 27 (22-30) mmol/L Anion Gap 16 mmol/L BUN 90 H (7-17) mg/dL Creatinine 9.79 H* (0.52-1.04) mg/dL Est GFR (CKD-EPI)AfAm 4 (>60 ml/min/1.73 sqM) Est GFR (CKD-EPI)NonAf 3 (>60 ml/min/1.73 sqM) Glucose 113 H (74-99) mg/dL Plasma Lactic Acid Bobby (0.7-2.0) mmol/L Calcium 8.3 L (8.4-10.2) mg/dL Phosphorus 4.4 (2.5-4.5) mg/dL Magnesium 1.5 L (1.6-2.3) mg/dL Total Bilirubin 1.1 (0.2-1.3) mg/dL AST 33 (14-36) U/L ALT 34 (4-34) U/L Alkaline Phosphatase 236 H (38-126) U/L Troponin I (0.000-0.034) ng/mL NT-Pro-B Natriuret Pep pg/mL Total Protein 6.3 (6.3-8.2) g/dL Albumin 3.6 (3.5-5.0) g/dL Urine Color Urine Appearance (Clear) Urine RBC (0-5) /hpf Urine WBC (0-5) /hpf Ur Squamous Epith Cells (0-4) /hpf Amorphous Sediment (None) /hpf Urine Bacteria (None) /hpf Hyaline Casts (0-2) /lpf Urine Mucus (None) /hpf 12/04/22 12/04/22 12/04/22 Range/Units 20:19 20:19 20:19 WBC (3.8-10.6) k/uL RBC (3.80-5.40) m/uL Hgb (11.4-16.0) gm/dL Hct (34.0-46.0) % MCV (80.0-100.0) fL MCH (25.0-35.0) pg MCHC (31.0-37.0) g/dL RDW (11.5-15.5) % Plt Count (150-450) k/uL MPV Neutrophils % % Lymphocytes % % Monocytes % % Eosinophils % % Basophils % % Neutrophils # (1.3-7.7) k/uL Lymphocytes # (1.0-4.8) k/uL Monocytes # (0-1.0) k/uL Eosinophils # (0-0.7) k/uL Basophils # (0-0.2) k/uL Anisocytosis PT (9.0-12.0) sec INR (<1.2) APTT (22.0-30.0) sec Sodium (137-145) mmol/L Potassium (3.5-5.1) mmol/L Chloride (98-107) mmol/L Carbon Dioxide (22-30) mmol/L Anion Gap mmol/L BUN (7-17) mg/dL Creatinine (0.52-1.04) mg/dL Est GFR (CKD-EPI)AfAm (>60 ml/min/1.73 sqM) Est GFR (CKD-EPI)NonAf (>60 ml/min/1.73 sqM) Glucose (74-99) mg/dL Plasma Lactic Acid Bobby 1.9 (0.7-2.0) mmol/L Calcium (8.4-10.2) mg/dL Phosphorus (2.5-4.5) mg/dL Magnesium (1.6-2.3) mg/dL Total Bilirubin (0.2-1.3) mg/dL AST (14-36) U/L ALT (4-34) U/L Alkaline Phosphatase (38-126) U/L Troponin I 0.143 H* (0.000-0.034) ng/mL NT-Pro-B Natriuret Pep 25955 pg/mL Total Protein (6.3-8.2) g/dL Albumin (3.5-5.0) g/dL Urine Color Urine Appearance (Clear) Urine RBC (0-5) /hpf Urine WBC (0-5) /hpf Ur Squamous Epith Cells (0-4) /hpf Amorphous Sediment (None) /hpf Urine Bacteria (None) /hpf Hyaline Casts (0-2) /lpf Urine Mucus (None) /hpf 12/04/22 Range/Units 20:44 WBC (3.8-10.6) k/uL RBC (3.80-5.40) m/uL Hgb (11.4-16.0) gm/dL Hct (34.0-46.0) % MCV (80.0-100.0) fL MCH (25.0-35.0) pg MCHC (31.0-37.0) g/dL RDW (11.5-15.5) % Plt Count (150-450) k/uL MPV Neutrophils % % Lymphocytes % % Monocytes % % Eosinophils % % Basophils % % Neutrophils # (1.3-7.7) k/uL Lymphocytes # (1.0-4.8) k/uL Monocytes # (0-1.0) k/uL Eosinophils # (0-0.7) k/uL Basophils # (0-0.2) k/uL Anisocytosis PT (9.0-12.0) sec INR (<1.2) APTT (22.0-30.0) sec Sodium (137-145) mmol/L Potassium (3.5-5.1) mmol/L Chloride (98-107) mmol/L Carbon Dioxide (22-30) mmol/L Anion Gap mmol/L BUN (7-17) mg/dL Creatinine (0.52-1.04) mg/dL Est GFR (CKD-EPI)AfAm (>60 ml/min/1.73 sqM) Est GFR (CKD-EPI)NonAf (>60 ml/min/1.73 sqM) Glucose (74-99) mg/dL Plasma Lactic Acid Bobby (0.7-2.0) mmol/L Calcium (8.4-10.2) mg/dL Phosphorus (2.5-4.5) mg/dL Magnesium (1.6-2.3) mg/dL Total Bilirubin (0.2-1.3) mg/dL AST (14-36) U/L ALT (4-34) U/L Alkaline Phosphatase (38-126) U/L Troponin I (0.000-0.034) ng/mL NT-Pro-B Natriuret Pep pg/mL Total Protein (6.3-8.2) g/dL Albumin (3.5-5.0) g/dL Urine Color Yellow Urine Appearance Cloudy H (Clear) Urine RBC 11 H (0-5) /hpf Urine WBC 172 H (0-5) /hpf Ur Squamous Epith Cells 66 H (0-4) /hpf Amorphous Sediment Occasional H (None) /hpf Urine Bacteria Many H (None) /hpf Hyaline Casts 21 H (0-2) /lpf Urine Mucus Many H (None) /hpf - Radiology Data Radiology results: report reviewed, image reviewed Disposition Clinical Impression: AMS (altered mental status), Confusion, Hemodialysis patient Disposition: ADMITTED IP TO THIS HOSP
[2022-12-04 20:43] LABS: Anisocytosis Slight; Basophils % (A) 0 %; Eosinophils # (A) 0.1 k/uL (0-0.7); Eosinophils % (A) 1 %; HCT 37.1 % (34.0-46.0); Lymphocytes # (A) 0.2 k/uL (1.0-4.8); Lymphocytes % (A) 3 %; MCH 30.4 pg (25.0-35.0); MCHC 32.4 g/dL (31.0-37.0); MCV 93.8 fL (80.0-100.0); Mean Platelet Volume 9.8; Monocytes # (A) 0.2 k/uL (0-1.0); Monocytes % (A) 3 %; Neutrophils # (A) 6.5 k/uL (1.3-7.7); Neutrophils % (A) 93 %; Platelet Count 108 k/uL (150-450); RBC 3.96 m/uL (3.80-5.40); RDW 16.9 % (11.5-15.5)
[2022-12-04 20:46] LABS: INR 1.2 (<1.2); Partial Thromboplastin Time 24.1 sec (22.0-30.0)
--- NOTE | 2022-12-04 21:03 | XR ---
EXAMINATION TYPE: XR chest 2V DATE OF EXAM: 12/04/2022 COMPARISON: 07/05/2020 HISTORY: Weakness TECHNIQUE: 2 views FINDINGS: Heart is normal. There is some blunting of the costophrenic angles. No obvious heart failur e. There is stent at the right subclavian vein or artery. There are chest leads. Bony thorax appears intact. IMPRESSION: There are small pleural effusions which appear new compared to old exam. No heart failure .
[2022-12-04 21:09] LABS: Albumin 3.6 g/dL (3.5-5.0); Calcium 8.3 mg/dL (8.4-10.2); Magnesium 1.5 mg/dL (1.6-2.3); Phosphorus 4.4 mg/dL (2.5-4.5); Potassium 5.1 mmol/L (3.5-5.1); Total Bilirubin 1.1 mg/dL (0.2-1.3); Total Protein 6.3 g/dL (6.3-8.2)
[2022-12-04 22:14] LABS: Amorphous Sediment,Urine Occasional /hpf; Bacteria,Urine Many /hpf; Hyaline Casts,Urine 21 /lpf (0-2); Mucus,Urine Many /hpf; RBC,Urine 11 /hpf (0-5); Squamous Epithelial Cell,Urine 66 /hpf (0-4); WBC,Urine 172 /hpf (0-5)
[2022-12-04 22:17] LABS: Appearance,Urine Cloudy (Clear)
[2022-12-04 22:18] LABS: Color,Urine Yellow
[2022-12-04] MEDS ORDERED: HYDROcodone/APAP 5-325MG 1 EACH TAB PO PRN (22:39)
[2022-12-04] MEDS ORDERED: ACETAMINOPHEN TAB 325 MG TAB PO PRN (22:39)
[2022-12-04] MEDS ORDERED: NALOXONE 0.4 MG/ML 1 ML VIAL IV PRN (22:39)
[2022-12-04] MEDS ORDERED: ONDANSETRON 4 MG/2 ML VIAL IVP PRN (22:43)
[2022-12-05] MEDS ORDERED: LOPERAMIDE 2 MG CAP PO PRN (01:06)
[2022-12-05] MEDS ORDERED: ACETAMINOPHEN TAB 325 MG TAB PO PRN ×2 (01:06)
[2022-12-05] MEDS ORDERED: cloNIDine HCL 0.1 MG TAB PO PRN (01:06)
[2022-12-05] MEDS ORDERED: ONDANSETRON 4 MG TAB PO PRN (01:06)
[2022-12-05] MEDS ORDERED: atenoloL 25 MG TAB PO PRN (01:06)
[2022-12-05] MEDS ORDERED: HYDROCORTISONE 2.5% RECTAL CREAM 30 GM TUBE RECTAL PRN (02:00)
[2022-12-05] MEDS: FERROUS SULFATE 325 MG TAB PO SCH (08:10)
[2022-12-05] MEDS: CYANOCOBALAMIN 500 MCG TAB PO SCH (08:10)
[2022-12-05] MEDS: MECLIZINE 12.5 MG TAB PO SCH (08:11)
[2022-12-05] MEDS: SEVELAMER 800 MG TAB PO SCH ×3 (08:11→22:38)
[2022-12-05] MEDS: APIXABAN 2.5 MG TABLET PO SCH ×2 (08:11→20:07)
[2022-12-05] MEDS: THIAMINE 100 MG TAB PO SCH (08:11)
[2022-12-05] MEDS: ESCITALOPRAM 5 MG TAB PO SCH (08:11)
[2022-12-05] MEDS: LETROZOLE 2.5 MG TAB PO SCH (08:11)
[2022-12-05] MEDS: PANTOPRAZOLE 40 MG TABLET PO SCH (08:11)
[2022-12-05] MEDS ORDERED: LORATADINE 10 MG TAB PO PRN (09:00)
[2022-12-05] MEDS ORDERED: SIMETHICONE 80 MG CHEWABLE PO PRN (09:00)
--- NOTE | 2022-12-05 11:03 | P.NPCON ---
History of Present Illness - Reason for Consult end stage renal disease - History of Present Illness Patient is a 77-year-old female with history of end-stage renal disease on hemodialysis on a Saturday schedule. Patient had missed her treatment on Saturday as she was not feeling well. Patient states that she has had nausea and vomiting. She has also been weak. Patient is unable to give a detailed history. Patient was also noted to have mental status changes prior to admission. Currently seen on dialysis Tolerating treatment Potassium was 5.1 and BUN of 90 with creatinine 9.7 yesterday. Blood pressure has been on the lower side with systolic around 101-1 20 mmHg Review of Systems As per HPI, other systems negative Past Medical History Past Medical History: Cancer, Heart Failure, Diabetes Mellitus, Eye Disorder, GERD/Reflux, Hyperlipidemia, Hypertension, Osteoarthritis (OA), Pneumonia, Renal Disease Additional Past Medical History / Comment(s): HX OF LEFT BREAST CANCER- SX.NEUROPATHY FEET, HANDS, RT EYE DIABETIC RETINOPATHY, STATES LITTLE VISION, HAD A PNE VACCINE NOT SURE OF DATE, HX pulled from previous visit History of Any Multi-Drug Resistant Organisms: None Reported Past Surgical History: Section, Cholecystectomy, Tonsillectomy, Tubal Ligation Additional Past Surgical History / Comment(s): LEFT BREAST LUMPECTOMY- no chemo, no radiation but took hormone pills, D&C, GERSON CATARACT SX-LENS IMPLANTS. Past Anesthesia/Blood Transfusion Reactions: Previous Problems w/ Anesthesia Additional Past Anesthesia/Blood Transfusion Reaction / Comment(s): STATED "TOOK A LONG TIME WAKING UP FROM ANESTHESIA" Past Psychological History: No Psychological Hx Reported Smoking Status: Former smoker Past Alcohol Use History: None Reported Additional Past Alcohol Use History / Comment(s): SMOKED 1958 AND QUIT 1962 SMOKED Past Drug Use History: None Reported - Past Family History Mother Family Medical History: No Reported History Brother(s) Family Medical History: Diabetes Mellitus Medications and Allergies Home Medications Medication Instructions Recorded Confirmed Type Letrozole [Femara] 2.5 mg PO DAILY 07/31/18 12/04/22 History Acetaminophen Tab [Tylenol] 650 mg PO Q6H PRN 08/13/18 12/04/22 History Acetaminophen [Tylenol] 650 mg PO MOWEFR PRN 06/19/20 12/04/22 History Lidocaine-Prilocaine Cream [Emla 1 applic TOPICAL MOWEFR 06/19/20 12/04/22 History Cream 2.5%/2.5%] Midodrine [ProAmatine] 5 mg PO MOWEFR 06/19/20 12/04/22 History Sevelamer [Renvela] 1,600 mg PO TID 06/19/20 12/04/22 History Simethicone [Gas-X] 125 mg PO Q8H PRN 06/19/20 12/04/22 History Apixaban [Eliquis] 2.5 mg PO BID 07/01/20 12/04/22 History Atorvastatin [Lipitor] 80 mg PO HS 12/04/22 12/04/22 History Cranberry Fruit [Cranberry] 465 mg PO DAILY 12/04/22 12/04/22 History Cyanocobalamin (Vitamin B-12) 1,000 mcg PO DAILY 12/04/22 12/04/22 History [Vitamin B-12] Dialyvite 1 tab PO DAILY 12/04/22 12/04/22 History Ergocalciferol (Vitamin D2) 1,250 mcg PO FR 12/04/22 12/04/22 History [Drisdol (50,000 Iu)] Escitalopram [Lexapro] 5 mg PO DAILY 12/04/22 12/04/22 History Ferrous Sulfate [Feosol] 325 mg PO DAILY 12/04/22 12/04/22 History Hydrocortisone [Anusol-Hc] 1 applic RECTAL Q8H PRN 12/04/22 12/04/22 History Loperamide [Imodium] 2 mg PO QID PRN MDD 8 MG 12/04/22 12/04/22 History Loratadine [Claritin] 10 mg PO DAILY PRN 12/04/22 12/04/22 History Meclizine [Antivert] 12.5 mg PO DAILY 12/04/22 12/04/22 History Omeprazole 20 mg PO DAILY 12/04/22 12/04/22 History Ondansetron [Zofran] 4 mg PO Q6H PRN 12/04/22 12/04/22 History Thiamine [Vitamin B-1] 100 mg PO DAILY 12/04/22 12/04/22 History atenoloL [Tenormin] 12.5 mg PO DAILY PRN 12/04/22 12/04/22 History cloNIDine HCL [Catapres] 0.1 mg PO DAILY PRN 12/04/22 12/04/22 History Allergies Allergy/AdvReac Type Severity Reaction Status Date / Time Penicillins Allergy Rash/Hives Verified 12/04/22 22:32 Physical Exam Vitals: Vital Signs Temp Pulse Pulse Resp BP BP Pulse Ox 12/05/22 07:10 98.1 F 66 18 127/78 100 12/05/22 04:12 97.8 F 69 17 104/67 99 12/05/22 00:05 98.7 F 84 20 101/61 98 12/04/22 23:00 84 16 112/63 99 12/04/22 22:19 92 16 112/63 96 12/04/22 21:37 100 20 130/60 98 12/04/22 20:20 100 20 136/63 99 12/04/22 19:46 99 F 100 22 136/63 98 Intake and Output 12/04/22 12/05/22 12/05/22 22:59 06:59 14:59 Other: Weight 87.09 kg 88.5 kg Awake, comfortable, and oriented 3 Examination of the heart S1 and S2 Examination of the lungs bilateral breath sounds are heard Abdomen is soft nontender Examination of the lower extremities shows 1+ edema PET FOOD DEBONER exam grossly intact Results - Lab Results Most recent lab results Calcium 8.3 mg/dL (8.4-10.2) L 12/04/22 20:19 Phosphorus 4.4 mg/dL (2.5-4.5) 12/04/22 20:19 Magnesium 1.5 mg/dL (1.6-2.3) L 12/04/22 20:19 12/04/22 20:19 12/04/22 20:19 Assessment and Plan Assessment: 1. End-stage renal disease on hemodialysis on a Saturday schedule 2. Mental status changes currently improved. No evidence of underlying infection 3. CK D mineral bone disorder 4. Mild volume overload 5. Hypertension with occasional low blood pressure on dialysis needing midodrine Plan: Hemodialysis today with goal UF of 2-2.5 L as tolerated Encourage increased oral intake Resume home binders
[2022-12-05] MEDS: LIDOCAINE-PRILOCAINE 2.5-2.5% CREAM 5 GM TUBE TOPICAL SCH (11:04)
[2022-12-05 11:37] LABS: Glucose,Whole Blood 96 mg/dL (70-110)
[2022-12-05] MEDS: INSULIN ASPART (NovoLOG) 100 UNIT/ML VIAL SQ SCH ×2 (12:05→16:36)
[2022-12-05] MEDS ORDERED: CEFEPIME 2 GM in SODIUM CHLORIDE 0.9% 100 ML IVPB STA (13:47)
--- NOTE | 2022-12-05 13:58 | P.HPIM ---
History of Present Illness H&P Date: 12/05/22 Chief Complaint: Tired This is a pleasant 77-year-old patient, follows with Dr. Vladislav Long. She had been feeling weak for last 2 days. Is on hemodialysis Saturday and Saturday. For last 4 years. She missed dialysis the previous day because of not feeling well. In the ER feeling more short of breath. Presented from [facility]. Somewhat slow to answer questions in the ER. No obvious fever was documented. Patient also an appointment to see Dr. Granados for breast cancer. At baseline patient is fluid restricted 1200 mL a day. Ambulate with support. He needs assistance with activities. Eats independently. Blood culture drawn yesterday of come back positive. For gram-negative rods. Chronic stable medical conditions include diabetes, GERD, hyperlipidemia, hypertension, osteoarthritis, left breast cancer, peripheral neuropathy, di abetic retinopathy, does use a wheelchair. Review of systems: GEN.: Decrease appetite, tired, chills EYES: Decreased vision HEENT: None NECK: None RESPIRATORY: Some shortness of breath CARDIOVASCULAR: None GASTROINTESTINAL: None GENITOURINARY: None MUSCULOSKELETAL: None LYMPHATICS: None HEMATOLOGICAL: None PSYCHIATRY: See above NEUROLOGICAL: Uses a wheelchair Past medical history to include: CHF, diabetes, GERD, hypertension, hyperlipidemia, osteoarthritis, left breast cancer being followed by Dr. Granados, peripheral neuropathy, diabetic retinopathy, left breast lumpectomy Social history: Currently at resident of [facility]. No smoking. No alcohol. Physical examination: VITAL SIGNS: 99, 100, 22, 1 36 x 63, 98% on 3 to his upon presentation GENERAL: BMI 31.5, declining but awake tired. EYES: Pupils equal. Conjunctiva normal. HEENT: External appearance of nose and ears normal, oral cavity grossly normal. NECK: JVD not raised; masses not palpable. HEART: First and second heart sounds are normal; no edema. LUNGS: Respiratory rate normal; clear to auscultation. ABDOMEN: Soft, nontender, liver spleen not palpable, no masses palpable. PSYCH: Able to answer simple questions. Tiredl. MUSCULOSKELETAL:No Clubbing/cyanosis;muscles-grossly intact. OA NEUROLOGICAL: Cranial nerves grossly intact; no facial asymmetry, power and sensation grossly intact. LYMPHATICS: No lymph nodes palpable in the axilla and neck INVESTIGATIONS, reviewed in the clinical context: White count 7 hemoglobin 12 platelets 108 sodium 129 potassium 5.1 BUN 19 creatinine 9.79 Troponin I 0.143 EKG tracing personally reviewed by me-sinus tachycardia Chest x-ray film personally reviewed by me-small pleural effusion. Blood culture [12/04/2022]: Gram negative rods Assessment and plan: -Sepsis with positive blood cultures from gram-negative rods. At this point source is unclear. Patient does have slight cough. Chest x-ray unremarkable. Start cefepime. Consult ID -End-stage kidney disease on hemodialysis Saturday. Nephrology consulted -Acute delirium on presentation from sepsis -Chronic medical debility, she uses a wheelchair. -Hyperlipidemia Lipitor 80 mg daily at bedtime -Depression Lexapro 5 mg -Breast cancer with left lumpectomy. Patient is to follow up with Dr. Granados. On [place] -GERD Omeprazole -Metabolic bone disease secondary to chronic kidney disease Renvela -Diabetic retinopathy -DO NOT RESUSCITATE Resume home medications. Consult nephrology. Hemodialysis today. IV cefepime. Consult ID. Care was discussed with the patient. Past Medical History Past Medical History: Cancer, Heart Failure, Diabetes Mellitus, Eye Disorder, GERD/Reflux, Hyperlipidemia, Hypertension, Osteoarthritis (OA), Pneumonia, Renal Disease Additional Past Medical History / Comment(s): HX OF LEFT BREAST CANCER- SX.NEUROPATHY FEET, HANDS, RT EYE DIABETIC RETINOPATHY, STATES LITTLE VISION, HAD A PNE VACCINE NOT SURE OF DATE, HX pulled from previous visit History of Any Multi-Drug Resistant Organisms: None Reported Past Surgical History: Section, Cholecystectomy, Tonsillectomy, Tubal Ligation Additional Past Surgical History / Comment(s): LEFT BREAST LUMPECTOMY- no chemo, no radiation but took hormone pills, D&C, GERSON CATARACT SX-LENS IMPLANTS. Past Anesthesia/Blood Transfusion Reactions: Previous Problems w/ Anesthesia Additional Past Anesthesia/Blood Transfusion Reaction / Comment(s): STATED "TOOK A LONG TIME WAKING UP FROM ANESTHESIA" Past Psychological History: No Psychological Hx Reported Smoking Status: Former smoker Past Alcohol Use History: None Reported Additional Past Alcohol Use History / Comment(s): SMOKED 1958 AND QUIT 1962 SMOKED Past Drug Use History: None Reported - Past Family History Mother Family Medical History: No Reported History Brother(s) Family Medical History: Diabetes Mellitus Medications and Allergies Home Medications Medication Instructions Recorded Confirmed Type Letrozole [Femara] 2.5 mg PO DAILY 07/31/18 12/04/22 History Acetaminophen Tab [Tylenol] 650 mg PO Q6H PRN 08/13/18 12/04/22 History Acetaminophen [Tylenol] 650 mg PO MOWEFR PRN 06/19/20 12/04/22 History Lidocaine-Prilocaine Cream [Emla 1 applic TOPICAL MOWEFR 06/19/20 12/04/22 History Cream 2.5%/2.5%] Midodrine [ProAmatine] 5 mg PO MOWEFR 06/19/20 12/04/22 History Sevelamer [Renvela] 1,600 mg PO TID 06/19/20 12/04/22 History Simethicone [Gas-X] 125 mg PO Q8H PRN 06/19/20 12/04/22 History Apixaban [Eliquis] 2.5 mg PO BID 07/01/20 12/04/22 History Atorvastatin [Lipitor] 80 mg PO HS 12/04/22 12/04/22 History Cranberry Fruit [Cranberry] 465 mg PO DAILY 12/04/22 12/04/22 History Cyanocobalamin (Vitamin B-12) 1,000 mcg PO DAILY 12/04/22 12/04/22 History [Vitamin B-12] Dialyvite 1 tab PO DAILY 12/04/22 12/04/22 History Ergocalciferol (Vitamin D2) 1,250 mcg PO FR 12/04/22 12/04/22 History [Drisdol (50,000 Iu)] Escitalopram [Lexapro] 5 mg PO DAILY 12/04/22 12/04/22 History Ferrous Sulfate [Feosol] 325 mg PO DAILY 12/04/22 12/04/22 History Hydrocortisone [Anusol-Hc] 1 applic RECTAL Q8H PRN 12/04/22 12/04/22 History Loperamide [Imodium] 2 mg PO QID PRN MDD 8 MG 12/04/22 12/04/22 History Loratadine [Claritin] 10 mg PO DAILY PRN 12/04/22 12/04/22 History Meclizine [Antivert] 12.5 mg PO DAILY 12/04/22 12/04/22 History Omeprazole 20 mg PO DAILY 12/04/22 12/04/22 History Ondansetron [Zofran] 4 mg PO Q6H PRN 12/04/22 12/04/22 History Thiamine [Vitamin B-1] 100 mg PO DAILY 12/04/22 12/04/22 History atenoloL [Tenormin] 12.5 mg PO DAILY PRN 12/04/22 12/04/22 History cloNIDine HCL [Catapres] 0.1 mg PO DAILY PRN 12/04/22 12/04/22 History Allergies Allergy/AdvReac Type Severity Reaction Status Date / Time Penicillins Allergy Rash/Hives Verified 12/04/22 22:32 Physical Exam Vitals: Vital Signs Temp Pulse Pulse Resp BP BP Pulse Ox 12/05/22 07:10 98.1 F 66 18 127/78 100 12/05/22 04:12 97.8 F 69 17 104/67 99 12/05/22 00:05 98.7 F 84 20 101/61 98 12/04/22 23:00 84 16 112/63 99 12/04/22 22:19 92 16 112/63 96 12/04/22 21:37 100 20 130/60 98 12/04/22 20:20 100 20 136/63 99 12/04/22 19:46 99 F 100 22 136/63 98 Intake and Output 12/04/22 12/05/22 12/05/22 22:59 06:59 14:59 Other: Weight 87.09 kg 88.5 kg Results CBC & Chem 7: 12/04/22 20:19 12/04/22 20:19 Labs: Abnormal Lab Results - Last 24 Hours (Table) 12/04/22 12/04/22 12/04/22 Range/Units 20:19 20:19 20:19 RDW 16.9 H (11.5-15.5) % Plt Count 108 L (150-450) k/uL Lymphocytes # 0.2 L (1.0-4.8) k/uL INR 1.2 H (<1.2) Sodium 129 L (137-145) mmol/L Chloride 86 L (98-107) mmol/L BUN 90 H (7-17) mg/dL Creatinine 9.79 H* (0.52-1.04) mg/dL Glucose 113 H (74-99) mg/dL Calcium 8.3 L (8.4-10.2) mg/dL Magnesium 1.5 L (1.6-2.3) mg/dL Alkaline Phosphatase 236 H (38-126) U/L Troponin I (0.000-0.034) ng/mL Urine Appearance (Clear) Urine RBC (0-5) /hpf Urine WBC (0-5) /hpf Ur Squamous Epith Cells (0-4) /hpf Amorphous Sediment (None) /hpf Urine Bacteria (None) /hpf Hyaline Casts (0-2) /lpf Urine Mucus (None) /hpf 12/04/22 12/04/22 Range/Units 20:19 20:44 RDW (11.5-15.5) % Plt Count (150-450) k/uL Lymphocytes # (1.0-4.8) k/uL INR (<1.2) Sodium (137-145) mmol/L Chloride (98-107) mmol/L BUN (7-17) mg/dL Creatinine (0.52-1.04) mg/dL Glucose (74-99) mg/dL Calcium (8.4-10.2) mg/dL Magnesium (1.6-2.3) mg/dL Alkaline Phosphatase (38-126) U/L Troponin I 0.143 H* (0.000-0.034) ng/mL Urine Appearance Cloudy H (Clear) Urine RBC 11 H (0-5) /hpf Urine WBC 172 H (0-5) /hpf Ur Squamous Epith Cells 66 H (0-4) /hpf Amorphous Sediment Occasional H (None) /hpf Urine Bacteria Many H (None) /hpf Hyaline Casts 21 H (0-2) /lpf Urine Mucus Many H (None) /hpf Microbiology - Last 24 Hours (Table) 12/04/22 20:44 Urine Culture - Preliminary Urine,Catheterized Thrombosis Risk Factor Assmnt - Choose All That Apply Each Risk Factor Represents 3 Points: Age 75 years or older Thrombosis Risk Factor Assessment Total Risk Factor Score: 3 Thrombosis Risk Factor Assessment Level: Moderate Risk
[2022-12-05] MEDS: MIDODRINE 5 MG TAB PO SCH (14:17)
[2022-12-05 16:34] LABS: Glucose,Whole Blood 81 mg/dL (70-110)
[2022-12-05] MEDS: IOPAMIDOL CONTRAST (ORAL USE) VIAL PO PRN ×2 (20:04→21:04)
[2022-12-05] MEDS: ATORVASTATIN 80 MG TAB PO SCH (20:07)
[2022-12-05 20:56] LABS: Glucose,Whole Blood 148 mg/dL (70-110)
[2022-12-05] MEDS ORDERED: CEFEPIME 1 GM VIAL IM SCH (21:00)
--- NOTE | 2022-12-05 21:43 | P.CONS ---
History of Present Illness - Reason for Consult Consult date: 12/05/22 Sepsis with positive blood culture Requesting physician: Jim Ram - Chief Complaint Weakness and shortness of breath x 2 days - History of Present Illness Patient is a 77-year-old female with a past medical history significant for end-stage renal disease on hemodialysis through the right arm fistula patient goes for dialysis on Saturday and Saturday also have a history of diabetes mellitus hypertension hyperlipidemia heart failure and history of breast cancer patient was sent to the ER for evaluation of increasing shortness of breath and weakness symptoms that has been going on for a day or 2 and apparently the patient did miss her dialysis on Saturday no clear history of any nausea vomiting or any diarrhea patient on presentation to the hospital he did have a low-grade fever of 99 F patient was not hypoxic however currently on 2 L nasal cannula patient did have a normal white count did have elevated BUN/creatinine history of kidney failure exams are normal urine was positive patient blood cultures came back positive with gram-negative bacilli she did received a dose of cefepime infectious disease was consulted for further management of antibiotic therapy chest x-ray with small effusion patient currently denies having any headache or URI symptoms no chest pain or shortness of breath occasional cough she did have some vague abdominal pain nausea but no vomiting no diarrhea patient did mentioned that she still makes urine however w as not very clear when specifically any burning or suprapubic pain or flank pain Review of Systems Positive point has been mentioned in the HPI rest of the systems are negative Past Medical History Past Medical History: Cancer, Heart Failure, Diabetes Mellitus, Eye Disorder, GERD/Reflux, Hyperlipidemia, Hypertension, Osteoarthritis (OA), Pneumonia, Renal Disease Additional Past Medical History / Comment(s): HX OF LEFT BREAST CANCER- SX.NEUROPATHY FEET, HANDS, RT EYE DIABETIC RETINOPATHY, STATES LITTLE VISION, HAD A PNE VACCINE NOT SURE OF DATE, HX pulled from previous visit History of Any Multi-Drug Resistant Organisms: None Reported Past Surgical History: Section, Cholecystectomy, Tonsillectomy, Tubal Ligation Additional Past Surgical History / Comment(s): LEFT BREAST LUMPECTOMY- no chemo, no radiation but took hormone pills, D&C, GERSON CATARACT SX-LENS IMPLANTS. Past Anesthesia/Blood Transfusion Reactions: Previous Problems w/ Anesthesia Additional Past Anesthesia/Blood Transfusion Reaction / Comm: STATED "TOOK A LONG TIME WAKING UP FROM ANESTHESIA" Past Psychological History: No Psychological Hx Reported Smoking Status: Former smoker Past Alcohol Use History: None Reported Additional Past Alcohol Use History / Comment(s): SMOKED 1958 AND QUIT 1962 SM OKED Past Drug Use History: None Reported - Past Family History Mother Family Medical History: No Reported History Brother(s) Family Medical History: Diabetes Mellitus Medications and Allergies Home Medications Medication Instructions Recorded Confirmed Type Letrozole [Femara] 2.5 mg PO DAILY 07/31/18 12/04/22 History Acetaminophen Tab [Tylenol] 650 mg PO Q6H PRN 08/13/18 12/04/22 History Acetaminophen [Tylenol] 650 mg PO MOWEFR PRN 06/19/20 12/04/22 History Lidocaine-Prilocaine Cream [Emla 1 applic TOPICAL MOWEFR 06/19/20 12/04/22 History Cream 2.5%/2.5%] Midodrine [ProAmatine] 5 mg PO MOWEFR 06/19/20 12/04/22 History Sevelamer [Renvela] 1,600 mg PO TID 06/19/20 12/04/22 History Simethicone [Gas-X] 125 mg PO Q8H PRN 06/19/20 12/04/22 History Apixaban [Eliquis] 2.5 mg PO BID 07/01/20 12/04/22 History Atorvastatin [Lipitor] 80 mg PO HS 12/04/22 12/04/22 History Cranberry Fruit [Cranberry] 465 mg PO DAILY 12/04/22 12/04/22 History Cyanocobalamin (Vitamin B-12) 1,000 mcg PO DAILY 12/04/22 12/04/22 History [Vitamin B-12] Dialyvite 1 tab PO DAILY 12/04/22 12/04/22 History Ergocalciferol (Vitamin D2) 1,250 mcg PO FR 12/04/22 12/04/22 History [Drisdol (50,000 Iu)] Escitalopram [Lexapro] 5 mg PO DAILY 12/04/22 12/04/22 History Ferrous Sulfate [Iron (65 MG 325 mg PO DAILY 12/04/22 12/04/22 History Elemental)] Hydrocortisone [Anusol-Hc] 1 applic RECTAL Q8H PRN 12/04/22 12/04/22 History Loperamide [Imodium] 2 mg PO QID PRN MDD 8 MG 12/04/22 12/04/22 History Omeprazole 20 mg PO DAILY 12/04/22 12/04/22 History Ondansetron [Zofran] 4 mg PO Q6H PRN 12/04/22 12/04/22 History Thiamine [Vitamin B-1] 100 mg PO DAILY 12/04/22 12/04/22 History atenoloL [Tenormin] 12.5 mg PO DAILY PRN 12/04/22 12/04/22 History cloNIDine HCL [Catapres] 0.1 mg PO DAILY PRN 12/04/22 12/04/22 History Cefuroxime [Ceftin] 250 mg PO BID #28 tab 12/11/22 Rx Allergies Allergy/AdvReac Type Severity Reaction Status Date / Time Penicillins Allergy Rash/Hives Verified 12/04/22 22:32 Physical Exam Vitals: Vital Signs Temp Pulse Pulse Resp BP BP Pulse Ox 12/05/22 13:05 97.1 F L 64 16 107/66 98 12/05/22 07:10 98.1 F 66 18 127/78 100 12/05/22 04:12 97.8 F 69 17 104/67 99 12/05/22 00:05 98.7 F 84 20 101/61 98 12/04/22 23:00 84 16 112/63 99 12/04/22 22:19 92 16 112/63 96 12/04/22 21:37 100 20 130/60 98 12/04/22 20:20 100 20 136/63 99 12/04/22 19:46 99 F 100 22 136/63 98 Intake and Output 12/04/22 12/05/22 12/05/22 22:59 06:59 14:59 Other: Weight 87.09 kg 88.5 kg 88.5 kg GENERAL DESCRIPTION: Elderly female lying in bed, no distress. No tachypnea or accessory muscle of respiration use. HEENT: Shows Pallor , no scleral icterus. Oral mucous membrane is dry. No phary ngeal erythema or thrush NECK: Trachea central, no thyromegaly. LUNGS: Unlabored breathing. Clear to auscultation anteriorly. No wheeze or crackle. HEART: S1, S2, regular rate and rhythm. No loud murmur ABDOMEN: Soft, mild tenderness , no guarding or rigidity EXTREMITIES: No edema of feet. SKIN: No rash, no masses palpable. NEUROLOGICAL: The patient is awake, alert, oriented x2, mood and affect normal. Results CBC & Chem 7: 12/11/22 06:15 12/10/22 07:36 Labs: Abnormal Lab Results - Last 24 Hours (Table) 12/04/22 12/04/22 12/04/22 Range/Units 20:19 20:19 20:19 RDW 16.9 H (11.5-15.5) % Plt Count 108 L (150-450) k/uL Lymphocytes # 0.2 L (1.0-4.8) k/uL INR 1.2 H (<1.2) Sodium 129 L (137-145) mmol/L Chloride 86 L (98-107) mmol/L BUN 90 H (7-17) mg/dL Creatinine 9.79 H* (0.52-1.04) mg/dL Glucose 113 H (74-99) mg/dL Calcium 8.3 L (8.4-10.2) mg/dL Magnesium 1.5 L (1.6-2.3) mg/dL Alkaline Phosphatase 236 H (38-126) U/L Troponin I (0.000-0.034) ng/mL Urine Appearance (Clear) Urine RBC (0-5) /hpf Urine WBC (0-5) /hpf Ur Squamous Epith Cells (0-4) /hpf Amorphous Sediment (None) /hpf Urine Bacteria (None) /hpf Hyaline Casts (0-2) /lpf Urine Mucus (None) /hpf 12/04/22 12/04/22 Range/Units 20:19 20:44 RDW (11.5-15.5) % Plt Count (150-450) k/uL Lymphocytes # (1.0-4.8) k/uL INR (<1.2) Sodium (137-145) mmol/L Chloride (98-107) mmol/L BUN (7-17) mg/dL Creatinine (0.52-1.04) mg/dL Glucose (74-99) mg/dL Calcium (8.4-10.2) mg/dL Magnesium (1.6-2.3) mg/dL Alkaline Phosphatase (38-126) U/L Troponin I 0.143 H* (0.000-0.034) ng/mL Urine Appearance Cloudy H (Clear) Urine RBC 11 H (0-5) /hpf Urine WBC 172 H (0-5) /hpf Ur Squamous Epith Cells 66 H (0-4) /hpf Amorphous Sediment Occasional H (None) /hpf Urine Bacteria Many H (None) /hpf Hyaline Casts 21 H (0-2) /lpf Urine Mucus Many H (None) /hpf Microbiology - Last 24 Hours (Table) 12/04/22 20:19 Blood Culture Gram Stain - Preliminary Blood 12/04/22 20:15 Blood Culture Gram Stain - Preliminary Blood 12/04/22 20:19 Blood Culture - Final Blood 12/04/22 20:15 Blood Culture - Final Blood 12/04/22 20:44 Urine Culture - Preliminary Urine,Catheterized Assessment and Plan (1) Bacteremia Status: Acute Code(s): R78.81 - BACTEREMIA SNOMED Code(s): 7302008 (2) Sepsis Status: Acute Code(s): A41.9 - SEPSIS, UNSPECIFIED ORGANISM SNOMED Code(s): 46835330 Plan: 1patient with gram-negative bacteremia source is likely abdominal versus urinary as the patient did have evidence of lower abdominal tenderness could be related to diverticulitis versus pyelonephritis as the patient mentions still makes urine even though she is a dialysis dependent. 2we will obtain a CT of abdominal pelvis with oral contrast only to better define underlying acute abdominal pathology. 3cefepime 1 g every 12 hours while waiting for the culture to finalize. 4blood cultures will be repeated and we will check inflammatory markers. We will follow on clinical condition and cultures to further adjust medication if needed Thank you for this consultation we will follow the patient along with you Time with Patient: Greater than 30
--- NOTE | 2022-12-05 23:44 | CT ---
EXAMINATION TYPE: CT abdomen pelvis wo con DATE OF EXAM: 12/05/2022 COMPARISON: 05/31/2017 HISTORY: Abd pain CT DLP: 1705.3 mGycm Automated exposure control for dose reduction was used. Images obtained from the diaphragm to the floor the pelvis without contrast. There is right pleural effusion and right lower lobe airspace consolidation and atelectasis. There is some mild atelectasis left posterior lung base. Heart size is fairly normal. No pericardial effusion . There are clips from cholecystectomy. Liver spleen pancreas appear intact. The bile duct are not dila rachel. There is no adrenal mass. There is mild right-sided hydronephrosis and hydroureter. There appears to be a 4 mm obstructing calculus in the lower right ureter. Urinary bladder is almost empty. There is r ight hip prosthesis. There is metal artifact which obscures detail. No pelvic mass. No inguinal herni a. No free fluid in the pelvis. The uterus is anteverted. There are multiple calculi in the right kidney that measure up to 3 mm. There are calculi in the ante rior and posterior left kidney measuring up to 3 mm. No evidence of left side renal obstruction. There is no mesenteric edema. No ascites or free air. No sign of a bowel obstruction. Appendix is med ial and appears normal. There is normal oral contrast opacification of the small bowel. There is cont rast in the large bowel extending to the rectum. The lumbar vertebrae have normal alignment. There is mild multilevel spondylotic changes. There is T1 2-L1 posterior longitudinal ligament thickening and calcification with some narrowing of the spinal c anal. IMPRESSION: Obstructing calculus in the lower right ureter with hydronephrosis and hydroureter. Multiple bilatera l renal calculi. Calculi appear new compared to old exam. Obstruction is new compared to old exam. There is right lower lobe airspace infiltrate and atelectasis which appears new compared to the old e xam. There is some mild atelectasis left lung base which is new compared to old exam. There is T12-L1 spinal stenosis due to calcification which is not significantly different than old exam.
[2022-12-06] MEDS: SODIUM CHLORIDE 0.9% 250 ML IV SCH ×3 (03:02→04:14)
[2022-12-06] MEDS: INSULIN ASPART (NovoLOG) 100 UNIT/ML VIAL SQ SCH ×3 (06:21→17:31)
[2022-12-06 07:01] LABS: Glucose,Whole Blood 110 mg/dL (70-110)
[2022-12-06] MEDS: FERROUS SULFATE 325 MG TAB PO SCH (09:10)
[2022-12-06] MEDS: LETROZOLE 2.5 MG TAB PO SCH (09:10)
[2022-12-06] MEDS: CYANOCOBALAMIN 500 MCG TAB PO SCH (09:10)
[2022-12-06] MEDS: SEVELAMER 800 MG TAB PO SCH ×3 (09:10→21:02)
[2022-12-06] MEDS: THIAMINE 100 MG TAB PO SCH (09:11)
[2022-12-06] MEDS: MECLIZINE 12.5 MG TAB PO SCH (09:11)
[2022-12-06] MEDS: PANTOPRAZOLE 40 MG TABLET PO SCH (09:11)
[2022-12-06] MEDS: APIXABAN 2.5 MG TABLET PO SCH ×2 (09:11→21:02)
[2022-12-06] MEDS: ESCITALOPRAM 5 MG TAB PO SCH (09:11)
[2022-12-06 11:43] LABS: Glucose,Whole Blood 124 mg/dL (70-110)
[2022-12-06] MEDS ORDERED: CEFEPIME 1 GM in SODIUM CHLORIDE 0.9% 50 ML IVPB SCH (12:00)
--- NOTE | 2022-12-06 12:48 | P.PN ---
Subjective Patient is seen for follow-up for end-stage renal disease. She is maintained on a Saturday schedule. Patient was transferred for mental status changes. Mentation has improved and appears to be at baseline. Patient tolerated her treatment well yesterday. She is scheduled for hemodialysis again in a.m. Blood cultures are growing E. coli. Urine cultures growing gram-negative bacilli. Patient is maintained on antibiotics Objective - Vital Signs Vital signs: Vital Signs Temp 98.3 F 12/06/22 06:58 Pulse 64 12/06/22 06:58 Resp 17 12/06/22 06:58 BP 98/62 12/06/22 06:58 Pulse Ox 97 12/06/22 06:58 FiO2 Intake & Output 12/05/22 12/06/22 12/06/22 18:59 06:59 18:59 Intake Total 400 Output Total 3400 Balance -3000 Weight 88.5 kg 89.5 kg Intake: Hemodialysis 400 Output: Hemodialysis 3400 Other: Voiding Method Bedpan Bedpan Diaper Diaper # Voids 2 # Bowel Movements 1 1 1 - Exam Awake, comfortable, and oriented 3 Examination of the heart S1 and S2 Examination of the lungs bilateral breath sounds are heard Abdomen is soft nontender Examination of the lower extremities shows 1+ edema POWDER GUARD exam grossly intact - Labs CBC & Chem 7: 12/04/22 20:19 12/04/22 20:19 Labs: Abnormal Lab Results - Last 24 Hours (Table) 12/05/22 12/06/22 Range/Units 20:42 11:39 POC Glucose (mg/dL) 148 H 124 H (70-110) mg/dL Microbiology - Last 24 Hours (Table) 12/04/22 20:44 Urine Culture - Preliminary Urine,Catheterized Gram Neg Bacilli 12/04/22 20:15 Blood Culture Gram Stain - Preliminary Blood Blood Culture - Preliminary Gram Neg Bacilli 12/04/22 20:19 Blood Culture Gram Stain - Preliminary Blood Blood Culture - Preliminary Escherichia coli 12/04/22 20:19 Blood Culture - Final Blood 12/04/22 20:15 Blood Culture - Final Blood Assessment and Plan Assessment: 1. End-stage renal disease on hemodialysis on a Saturday schedule 2. Mental status changes currently improved. 3. CK D mineral bone disorder 4. Mild volume overload 5. Hypertension with occasional low blood pressure on dialysis needing midodrine 6. Gram-negative bacteremia with blood culture growing E. coli and urine culture growing gram-negative bacilli. Plan: Hemodialysis in a.m. Antibiotics as per ID
--- NOTE | 2022-12-06 13:05 | P.GSCN ---
History of Present Illness Consult date: 12/06/22 Reason for Consult: Obstructing nephrolithiasis, sepsis Requesting physician: Jimmy Jimenez History of present illness: The patient is a 77-year-old female with a past medical history of breast cancer, heart failure, diabetes mellitus, hyperlipidemia, hypertension, osteoarthritis, and end-stage renal disease on hemodialysis M, W, F. S with generalized weakness. She presented to the emergency department from [facility] on 12/04/22 with weakness and confusion. The patient is a poor historian. Information obtained from patient and EMR. The patient is usually a and O 4 at baseline. She has not been feeling well for the last 2 days. She missed hemodialysis and a follow-up appointment with oncology. Workup included a chest x-ray which shows small pleural effusions, and EKG which shows sinus tachycardia with a heart rate of 100. Upon arrival to the ED she had a low-grade fever of 99F. Abdomen/pelvis CT without contrast shows obstructing calculus in the lower right ureter with hydronephrosis and hydroureter. Multiple bilateral renal calculi. Blood cultures growing E. coli. Preliminary urine culture with gram-negative bacilli. ID following. Review of Systems - Constitutional Reports chills, Denies fever - EENT Ears, nose, mouth and throat: Denies headache - Cardiovascular Reports shortness of breath, Denies chest pain - Gastrointestinal Reports nausea, Denies abdominal pain - Genitourinary Genitourinary: Denies dysuria, Denies hematuria Past Medical History Past Medical History: Cancer, Heart Failure, Diabetes Mellitus, Eye Disorder, GERD/Reflux, Hyperlipidemia, Hypertension, Osteoarthritis (OA), Pneumonia, Renal Disease Additional Past Medical History / Comment(s): HX OF LEFT BREAST CANCER- SX.NEUROPATHY FEET, HANDS, RT EYE DIABETIC RETINOPATHY, STATES LITTLE VISION, HAD A PNE VACCINE NOT SURE OF DATE, HX pulled from previous visit History of Any Multi-Drug Resistant Organisms: None Reported Past Surgical History: Section, Cholecystectomy, Tonsillectomy, Tubal Ligation Additional Past Surgical History / Comment(s): LEFT BREAST LUMPECTOMY- no chemo, no radiation but took hormone pills, D&C, GERSON CATARACT SX-LENS IMPLANTS. Past Anesthesia/Blood Transfusion Reactions: Previous Problems w/ Anesthesia Additional Past Anesthesia/Blood Transfusion Reaction / Comm: STATED "TOOK A JOHN G TIME WAKING UP FROM ANESTHESIA" Past Psychological History: No Psychological Hx Reported Smoking Status: Former smoker Past Alcohol Use History: None Reported Additional Past Alcohol Use History / Comment(s): SMOKED 1959 AND QUIT 1962 SMOKED Past Drug Use History: None Reported - Past Family History Mother Family Medical History: No Reported History Brother(s) Family Medical History: Diabetes Mellitus Medications and Allergies Home Medications Medication Instructions Recorded Confirmed Type Letrozole [Femara] 2.5 mg PO DAILY 07/31/18 12/04/22 History Acetaminophen Tab [Tylenol] 650 mg PO Q6H PRN 08/13/18 12/04/22 History Acetaminophen [Tylenol] 650 mg PO MOWEFR PRN 06/19/20 12/04/22 History Lidocaine-Prilocaine Cream [Emla 1 applic TOPICAL MOWEFR 06/19/20 12/04/22 History Cream 2.5%/2.5%] Midodrine [ProAmatine] 5 mg PO MOWEFR 06/19/20 12/04/22 History Sevelamer [Renvela] 1,600 mg PO TID 06/19/20 12/04/22 History Simethicone [Gas-X] 125 mg PO Q8H PRN 06/19/20 12/04/22 History Apixaban [Eliquis] 2.5 mg PO BID 07/01/20 12/04/22 History Atorvastatin [Lipitor] 80 mg PO HS 12/04/22 12/04/22 History Cranberry Fruit [Cranberry] 465 mg PO DAILY 12/04/22 12/04/22 History Cyanocobalamin (Vitamin B-12) 1,000 mcg PO DAILY 12/04/22 12/04/22 History [Vitamin B-12] Dialyvite 1 tab PO DAILY 12/04/22 12/04/22 History Ergocalciferol (Vitamin D2) 1,250 mcg PO FR 12/04/22 12/04/22 History [Drisdol (50,000 Iu)] Escitalopram [Lexapro] 5 mg PO DAILY 12/04/22 12/04/22 History Ferrous Sulfate [Feosol] 325 mg PO DAILY 12/04/22 12/04/22 History Hydrocortisone [Anusol-Hc] 1 applic RECTAL Q8H PRN 12/04/22 12/04/22 History Loperamide [Imodium] 2 mg PO QID PRN MDD 8 MG 12/04/22 12/04/22 History Loratadine [Claritin] 10 mg PO DAILY PRN 12/04/22 12/04/22 History Meclizine [Antivert] 12.5 mg PO DAILY 12/04/22 12/04/22 History Omeprazole 20 mg PO DAILY 12/04/22 12/04/22 History Ondansetron [Zofran] 4 mg PO Q6H PRN 12/04/22 12/04/22 History Thiamine [Vitamin B-1] 100 mg PO DAILY 12/04/22 12/04/22 History atenoloL [Tenormin] 12.5 mg PO DAILY PRN 12/04/22 12/04/22 History cloNIDine HCL [Catapres] 0.1 mg PO DAILY PRN 12/04/22 12/04/22 History Allergies Allergy/AdvReac Type Severity Reaction Status Date / Time Penicillins Allergy Rash/Hives Verified 12/04/22 22:32 Surgical - Exam Vital Signs Temp Pulse Resp BP Pulse Ox 99 F 100 22 136/63 98 12/04/22 19:46 12/04/22 19:46 12/04/22 19:46 12/04/22 19:46 12/04/22 19:46 General: Well developed, well nourished. No acute distress. HEENT: Head is atraumatic, normocephalic. Lungs: Respirations even and nonlabored. On 2L NC. Abdomen/GI: Soft, non-distended. No guarding, rigidity, or abdominal tenderness. + Left flank tenderness. : No suprapubic tenderness. Skin: Warm and dry Neurologic: Alert and oriented 1-2, CN II-XII grossly intact. No focal deficits. Psychiatric: Appropriate mood and affect. Results - Labs 12/07/22 05:41 12/07/22 05:41 Abnormal Lab Results - Last 24 Hours (Table) 12/05/22 12/06/22 Range/Units 20:42 11:39 POC Glucose (mg/dL) 148 H 124 H (70-110) mg/dL Microbiology - Last 24 Hours (Table) 12/04/22 20:44 Urine Culture - Preliminary Urine,Catheterized Gram Neg Bacilli 03/14/23 20:15 Blood Culture Gram Stain - Preliminary Blood Blood Culture - Preliminary Gram Neg Bacilli 12/04/22 20:19 Blood Culture Gram Stain - Preliminary Blood Blood Culture - Preliminary Escherichia coli 12/04/22 20:19 Blood Culture - Final Blood 12/04/22 20:15 Blood Culture - Final Blood - Imaging Chest x-ray: report reviewed CT scan - abdomen: report reviewed CT scan - pelvis: report reviewed Assessment and Plan Assessment: The patient is afebrile, hypotensive, and on 2 L nasal cannula. The patient is awake and alert, but unable to give a detailed history. She denies any history of kidney stones. No history of renal or bladder cancer. She denies any dysuria or hematuria. She reports having some fever/chills and nausea/vomiting. She does have left flank tenderness to palpitation. The patient will be taken to the OR for a ureteroscopy and right stent insertion with Dr. Cueto. The patient will be scheduled for a secondary procedure regarding stone removal one her infection resolves. (1) Hydronephrosis with obstructing calculus Current Visit: Yes Status: Acute Code(s): N13.2 - HYDRONEPHROSIS WITH RENAL AND URETERAL CALCULOUS OBSTRUCTION SNOMED Code(s): 12398890 Plan: - Awaiting finalization of urine culture - Continue antibiotics per ID's recommendation - Nothing by mouth after midnight - OR tomorrow for cystoscopy and right stent insertion - Secondary procedure for stone removal as outpatient Impression and plan of care have been directed as dictated by the signing physician. Margarita Linda nurse practitioner acting as scribe for signing physician. Margarita Linda [facility] Palliative Care/Urology [facility] [id number] Email: [email or web address] I personally performed and participated in the history, physical, the decision making, I agree with the assessment and plan of [employer] CLERK
--- NOTE | 2022-12-06 13:45 | P.CONS ---
History of Present Illness - Reason for Consult Consult date: 12/06/22 hx breast cancer Requesting physician: Jim Ram - Chief Complaint weakness and SOB - History of Present Illness Patient is a 77-year-old female with a past medical history HTN, HLD, heart failure, ESRD on hemodialysis and breast cancer. She is a patient of Dr. Juan land, and is currently on femara since 2018, s/p partial left breast mastectomy. Patient presented to the ER for increasing shortness of breath and weakness symptoms that has been ongoing for the last 2 days. Upon initial presentation pt had temperature of 99.0. She also reports intermittent dizziness. She denies dysuria, urinary complaints, incontinence, abdominal pain, flank pain, n/v/d, fever and chills. UA showed RBCs, WBCs, and bacteria, urin culture pending. Blood cultures positive for e. coli. Cefepime was started. Creatinine 9.79. Dialysis pt M-W-F. CT abd/pelvis showed obstruction of lower right ureter, with hydronephrosis and hydroureter. Urology consult placed. Oncology History: Patient had an abnormal screening mammogram on 07/17/17 revealing suspecious calcifications at 12 O'clock, U/S of Breast 08/02/17 revealed 2 lesions 9x7x8 mm and 5x4x6 mm . She had biopsy on 08/30/2017 revealing Grade II invasive Ductal Carcinoma. ER/MT +/+ and [id number] was negative by FISH. She had L Partial mastectomy on Oct 22 2017 revealing 11 mm Grade II invasive carcinoma, SLNB negative (0-1), [address] were negative (0-3). Margins were all negative, inferior margins was close. DCIS Grade II present without EIC, margins negative as well. Started on Femara, and has continued on s nguyễn 2017. Mammogram, December 2021 was negative for malignancy Review of Systems 10 point ROS is negative except as stated in HPI Past Medical History Past Medical History: Cancer, Heart Failure, Diabetes Mellitus, Eye Disorder, GE RD/Reflux, Hyperlipidemia, Hypertension, Osteoarthritis (OA), Pneumonia, Renal Disease Additional Past Medical History / Comment(s): HX OF LEFT BREAST CANCER- SX.NEUROPATHY FEET, HANDS, RT EYE DIABETIC RETINOPATHY, STATES LITTLE VISION, HAD A PNE VACCINE NOT SURE OF DATE, HX pulled from previous visit History of Any Multi-Drug Resistant Organisms: None Reported Past Surgical History: Section, Cholecystectomy, Tonsillectomy, Tubal Ligation Additional Past Surgical History / Comment(s): LEFT BREAST LUMPECTOMY- no chemo, no radiation but took hormone pills, D&C, GERSON CATARACT SX-LENS IMPLANTS. Past Anesthesia/Blood Transfusion Reactions: Previous Problems w/ Anesthesia Additional Past Anesthesia/Blood Transfusion Reaction / Comm: STATED "TOOK A LONG TIME WAKING UP FROM ANESTHESIA" Past Psychological History: No Psychological Hx Reported Smoking Status: Former smoker Past Alcohol Use History: None Reported Additional Past Alcohol Use History / Comment(s): SMOKED 1958 AND QUIT 1962 SMOKED Past Drug Use History: None Reported - Past Family History Mother Family Medical History: No Reported History Brother(s) Family Medical History: Diabetes Mellitus Medications and Allergies Home Medications Medication Instructions Recorded Confirmed Type Letrozole [Femara] 2.5 mg PO DAILY 07/31/18 12/04/22 History Acetaminophen Tab [Tylenol] 650 mg PO Q6H PRN 08/13/18 12/04/22 History Acetaminophen [Tylenol] 650 mg PO MOWEFR PRN 06/19/20 12/04/22 History Lidocaine-Prilocaine Cream [Emla 1 applic TOPICAL MOWEFR 06/19/20 12/04/22 History Cream 2.5%/2.5%] Midodrine [ProAmatine] 5 mg PO MOWEFR 06/19/20 12/04/22 History Sevelamer [Renvela] 1,600 mg PO TID 06/19/20 12/04/22 History Simethicone [Gas-X] 125 mg PO Q8H PRN 06/19/20 12/04/22 History Apixaban [Eliquis] 2.5 mg PO BID 07/01/20 12/04/22 History Atorvastatin [Lipitor] 80 mg PO HS 12/04/22 12/04/22 History Cranberry Fruit [Cranberry] 465 mg PO DAILY 12/04/22 12/04/22 History Cyanocobalamin (Vitamin B-12) 1,000 mcg PO DAILY 12/04/22 12/04/22 History [Vitamin B-12] Dialyvite 1 tab PO DAILY 12/04/22 12/04/22 History Ergocalciferol (Vitamin D2) 1,250 mcg PO FR 12/04/22 12/04/22 History [Drisdol (50,000 Iu)] Escitalopram [Lexapro] 5 mg PO DAILY 12/04/22 12/04/22 History Ferrous Sulfate [Feosol] 325 mg PO DAILY 12/04/22 12/04/22 History Hydrocortisone [Anusol-Hc] 1 applic RECTAL Q8H PRN 12/04/22 12/04/22 History Loperamide [Imodium] 2 mg PO QID PRN MDD 8 MG 12/04/22 12/04/22 History Loratadine [Claritin] 10 mg PO DAILY PRN 12/04/22 12/04/22 History Meclizine [Antivert] 12.5 mg PO DAILY 12/04/22 12/04/22 History Omeprazole 20 mg PO DAILY 12/04/22 12/04/22 History Ondansetron [Zofran] 4 mg PO Q6H PRN 12/04/22 12/04/22 History Thiamine [Vitamin B-1] 100 mg PO DAILY 12/04/22 12/04/22 History atenoloL [Tenormin] 12.5 mg PO DAILY PRN 12/04/22 12/04/22 History cloNIDine HCL [Catapres] 0.1 mg PO DAILY PRN 12/04/22 12/04/22 History Allergies Allergy/AdvReac Type Severity Reaction Status Date / Time Penicillins Allergy Rash/Hives Verified 12/04/22 22:32 Physical Exam Vitals: Vital Signs Temp Pulse Resp BP Pulse Ox 12/06/22 06:58 98.3 F 64 17 98/62 97 12/06/22 02:30 98.9 F 71 17 82/47 98 12/05/22 19:33 97.1 F L 57 L 16 126/67 12/05/22 19:14 98.8 F 93 20 112/57 98 12/05/22 13:05 97.1 F L 64 16 107/66 98 Intake and Output 12/05/22 12/06/22 12/06/22 22:59 06:59 14:59 Intake Total 400 Output Total 3400 Balance -3000 Intake: Hemodialysis 400 Output: Hemodialysis 3400 Other: Voiding Method Bedpan Diaper # Voids 2 # Bowel Movements 1 1 Weight 89.5 kg - Constitutional General appearance: average body habitus, no acute distress - EENT ENT: hearing grossly normal - Respiratory Respiratory: bilateral: CTA - Cardiovascular Rhythm: regular Heart sounds: normal: S1, S2 Abnormal Heart Sounds: no systolic murmur, no diastolic murmur, no rub, no S3 Gallop, no S4 Gallop, no click, no other - Gastrointestinal General gastrointestinal: soft, no tenderness - Integumentary Integumentary: normal - Neurologic grossly intact - Musculoskeletal Musculoskeletal: generalized weakness - Psychiatric Psychiatric: A&O x's 3, appropriate affect, intact judgment & insight Results CBC & Chem 7: 12/04/22 20:19 12/04/22 20:19 Labs: Abnormal Lab Results - Last 24 Hours (Table) 12/05/22 Range/Units 20:42 POC Glucose (mg/dL) 148 H (70-110) mg/dL Microbiology - Last 24 Hours (Table) 12/04/22 20:15 Blood Culture Gram Stain - Preliminary Blood Blood Culture - Preliminary Gram Neg Bacilli 12/04/22 20:19 Blood Culture Gram Stain - Preliminary Blood Blood Culture - Preliminary Escherichia coli 12/04/22 20:19 Blood Culture - Final Blood 12/04/22 20:15 Blood Culture - Final Blood 12/04/22 20:44 Urine Culture - Preliminary Urine,Catheterized Chest x-ray: report reviewed CT scan - abdomen: report reviewed CT scan - pelvis: report reviewed Assessment and Plan (1) Invasive ductal carcinoma of breast Current Visit: Yes Status: Acute Priority: High Code(s): C50.919 - MALIGNANT NEOPLASM OF UNSP SITE OF UNSPECIFIED FEMALE BREAST SNOMED Code(s): 295938013 Plan: Invasive ductal carcinoma: -Pt has been on adjuvant femara daily since 2017, s/p partial left mastectomy. -Mammogram, December 2021 was negative for malignancy -Continue femara daily -Will schedule f/u with Dr. Carlos Adams in 2 weeks. Appt will be placed in discharge plan Hydronephrosis: -CT scan showed right sided hydronephrosis and hydroureter -Urology consulted -Pt switched to Rocephin. ID also following due to positive blood cultures attests: I have performed H&P and developed impression and plan of care for patient, discussed with dictator. I agree with dictated note, documented as a scribe
[2022-12-06] MEDS ORDERED: MIDODRINE 5 MG TAB PO ONE (14:03)
[2022-12-06] MEDS ORDERED: SODIUM CHLORIDE 0.9% 500 ML IV ONE (14:04)
--- NOTE | 2022-12-06 14:24 | P.PN ---
Progress Note - Text Progress Note Date: 12/06/22 Chief Complaint: Tired This is a pleasant 77-year-old patient, follows with Dr. Vladislav Long. She had been feeling weak for last 2 days. Is on hemodialysis Saturday and Saturday. For last 4 years. She missed dialysis the previous day because of not feeling well. In the ER feeling more short of breath. Presented from [facility]. Somewhat slow to answer questions in the ER. No obvious fever was documented. Patient also an appointment to see Dr. Granados for breast cancer. At baseline patient is fluid restricted 1200 mL a day. Ambulate with support. He needs assistance with activities. Eats independently. Blood culture drawn yesterday of come back positive. For gram-negative rods. Chronic stable medical conditions include diabetes, GERD, hyperlipidemia, hypertension, osteoarthritis, left breast cancer, peripheral neuropathy, diabetic retinopathy, does use a wheelchair. 12/06/2022: Blood cultures were positive for E. coli./Gram-negative bacilli. On IV ceftriaxone. Likely source renal with obstructing calculus in the lower right ureter with hydronephrosis. Right bilateral multiple renal calculi. Denies abdominal pain. Urology consulted. Decreased appetite. Next hemodialysis tomorrow Active Medications Acetaminophen (Acetaminophen Tab 325 Mg Tab) 650 mg PO MOWEFR PRN PRN Reason: DURING DIALYSIS Acetaminophen (Acetaminophen Tab 325 Mg Tab) 650 mg PO Q6H PRN PRN Reason: Pain or Fever > 100.5 Hydrocodone Bitart/Acetaminophen (Hydrocodone/Apap 5-325mg 1 Each Tab) 1 each PO Q4HR PRN PRN Reason: Moderate Pain (Scale 4 to 6) Apixaban (Apixaban 2.5 Mg Tablet) 2.5 mg PO BID [facility]; Protocol Last Admin: 12/06/22 09:11 Dose: 2.5 mg Atenolol (Atenolol 25 Mg Tab) 12.5 mg PO DAILY PRN PRN Reason: hold for SBP <100 or HR <60 Atorvastatin Calcium (Atorvastatin 80 Mg Tab) 80 mg PO HS [facility] Last Admin: 12/05/22 20:07 Dose: 80 mg Clonidine (Clonidine Hcl 0.1 Mg Tab) 0.1 mg PO DAILY PRN PRN Reason: SBP >160 Cyanocobalamin (Cyanocobalamin 500 Mcg Tab) 1,000 mcg PO DAILY [facility] Last Admin: 12/06/22 09:10 Dose: 1,000 mcg Ergocalciferol (Ergocalciferol 1,250 Mcg (50,000 Iu) Capsule) 1,250 mcg PO Fr@0900 [facility] Escitalopram Oxalate (Escitalopram 5 Mg Tab) 5 mg PO DAILY [facility] Last Admin: 12/06/22 09:11 Dose: 5 mg Ferrous Sulfate (Ferrous Sulfate 325 Mg Tab) 325 mg PO DAILY [facility] Last Admin: 12/06/22 09:10 Dose: 325 mg Hydrocortisone (Hydrocortisone 2.5% Rectal Cream 30 Gm Tube) 1 applic RECTAL Q8H PRN PRN Reason: Hemorrhoids Ceftriaxone Sodium 2 gm/ (Sodium Chloride) 50 mls @ 100 mls/hr IVPB Q24HR [facility]; Protocol Last Admin: 12/06/22 11:49 Dose: 100 mls/hr Sodium Chloride (Saline 0.9%) 500 mls @ 999 mls/hr IV .Q31M ONE Stop: 12/06/22 14:34 Insulin Aspart (Insulin Aspart (Novolog) 100 Unit/Ml Vial) 0 unit SQ AC-TID [facility]; Protocol Last Admin: 12/06/22 11:46 Dose: Not Given Letrozole (Letrozole 2.5 Mg Tab) 2.5 mg PO DAILY [facility] Last Admin: 12/06/22 09:10 Dose: 2.5 mg Lidocaine/Prilocaine (Lidocaine-Prilocaine 2.5-2.5% Cream 5 Gm Tube) 1 applic TOPICAL MoWeFr@0900 [facility]; Protocol Last Admin: 12/05/22 11:04 Dose: Not Given Loperamide HCl (Loperamide 2 Mg Cap) 2 mg PO QID PRN PRN Reason: Diarrhea Loratadine (Loratadine 10 Mg Tab) 10 mg PO DAILY PRN PRN Reason: Allergy Symptoms Meclizine HCl (Meclizine 12.5 Mg Tab) 12.5 mg PO DAILY [facility] Last Admin: 12/06/22 09:11 Dose: 12.5 mg Midodrine (Midodrine 5 Mg Tab) 5 mg PO MoWeFr@0900 [facility] Last Admin: 12/05/22 14:17 Dose: Not Given Naloxone HCl (Naloxone 0.4 Mg/Ml 1 Ml Vial) 0.2 mg IV Q2M PRN PRN Reason: Opioid Reversal Ondansetron HCl (Ondansetron 4 Mg Tab) 4 mg PO Q6H PRN PRN Reason: Nausea Pantoprazole Sodium (Pantoprazole 40 Mg Tablet) 40 mg PO DAILY [facility] Last Admin: 12/06/22 09:11 Dose: 40 mg Sevelamer Carbonate (Sevelamer 800 Mg Tab) 1,600 mg PO TID [facility] Last Admin: 12/06/22 09:10 Dose: 1,600 mg Simethicone (Simethicone 80 Mg Chewable) 120 mg PO Q8H PRN PRN Reason: Indigestion Thiamine HCl (Thiamine 100 Mg Tab) 100 mg PO DAILY [facility] Last Admin: 12/06/22 09:11 Dose: 100 mg Past medical history to include: CHF, diabetes, GERD, hypertension, hyperlipidemia, osteoarthritis, left breast cancer being followed by Dr. Granados, peripheral neuropathy, diabetic retinopathy, left breast lumpectomy Social history: Currently at [facility]. No smoking. No alcohol. Physical examination: VITAL SIGNS: Afebrile, 64, 17, 98/62, 97% on 2 L GENERAL: Reclining, tired EYES: Pupils equal. Conjunctiva normal. HEENT: External appearance of nose and ears normal, oral cavity grossly normal. NECK: JVD not raised; masses not palpable. HEART: First and second heart sounds are normal; no edema. LUNGS: Respiratory rate normal; clear to auscultation. ABDOMEN: Soft, nontender, liver spleen not palpable, no masses palpable. PSYCH: Answering questions Tiredl. MUSCULOSKELETAL:No Clubbing/cyanosis;muscles-grossly intact. OA INVESTIGATIONS, reviewed in the clinical context: White count 7 hemoglobin 12 platelets 108 sodium 129 potassium 5.1 BUN 19 creatinine 9.79 Troponin I 0.143 EKG tracing personally reviewed by me-sinus tachycardia Chest x-ray film personally reviewed by me-small pleural effusion. Blood culture [12/04/2022]: Gram negative rods Assessment and plan: -Sepsis with positive blood cultures from gram-negative rods. Secondary to likely pyelonephritis. IV ceftriaxone -Right hydronephrosis, right hydroureter from a distal ureteral stone. Acute pyelonephritis.: New diagnosis IV ceftriaxone. Urology consulted. -Bilateral renal calculi -End-stage kidney disease on hemodialysis Saturday. Nephrology following -Acute delirium on presentation from sepsis: Better -Chronic medical debility, she uses a wheelchair. -Hyperlipidemia Lipitor 80 mg daily at bedtime -Depression Lexapro 5 mg -Invasive ductal carcinoma of the breast. left partial mastectomy. Patient is to follow up with Dr. Granados. On femara -GERD Omeprazole -Metabolic bone disease secondary to chronic kidney disease Renvela -Diabetic retinopathy -DO NOT RESUSCITATE Consult urology. IV ceftriaxone. Blood pressure running low. Started on midodrine. Other medications to continue.
--- NOTE | 2022-12-06 14:30 | P.PN ---
Subjective Progress Note Date: 12/06/22 Principal diagnosis: E. coli bacteremia Patient is a 77-year-old female with a past medical history significant for end-stage renal disease on hemodialysis through the right arm fistula, the patient also makes urine presented to the hospital with weakness has been diagnosed with an E. coli bacteremia CT of abdominal pelvis concerning for right-sided hydronephrosis from an obstructing stone On today's evaluation that is 12/06/2022, the patient denies having any fever or chills, the patient is breathing comfortably currently on 2 L nasal cannula no chest pain shortness of breath or cough no abdominal pain or diarrhea Objective - Vital Signs Vital signs: Vital Signs Temp 98.3 F 12/06/22 06:58 Pulse 64 12/06/22 06:58 Resp 17 12/06/22 06:58 BP 98/62 12/06/22 06:58 Pulse Ox 97 12/06/22 06:58 FiO2 Intake & Output 12/05/22 12/06/22 12/06/22 18:59 06:59 18:59 Intake Total 400 Output Total 3400 Balance -3000 Weight 88.5 kg 89.5 kg Intake: Hemodialysis 400 Output: Hemodialysis 3400 Other: Voiding Method Bedpan Bedpan Diaper Diaper # Voids 2 # Bowel Movements 1 1 - Exam GENERAL DESCRIPTION: An elderly female lying in bed in no distress RESPIRATORY SYSTEM: Unlabored breathing , decreased breath sounds at bases HEART: S1 S2 regular rate and rhythm , ABDOMEN: Soft , no tenderness EXTREMITIES: No edema feet - Labs CBC & Chem 7: 12/04/22 20:19 12/04/22 20:19 Labs: Abnormal Lab Results - Last 24 Hours (Table) 12/05/22 Range/Units 20:42 POC Glucose (mg/dL) 148 H (70-110) mg/dL Microbiology - Last 24 Hours (Table) 12/04/22 20:15 Blood Culture Gram Stain - Preliminary Blood Blood Culture - Preliminary Gram Neg Bacilli 12/04/22 20:19 Blood Culture Gram Stain - Preliminary Blood Blood Culture - Preliminary Escherichia coli 12/04/22 20:19 Blood Culture - Final Blood 12/04/22 20:15 Blood Culture - Final Blood 12/04/22 20:44 Urine Culture - Preliminary Urine,Catheterized Assessment and Plan (1) E coli bacteremia Current Visit: Yes Status: Acute Code(s): R78.81 - BACTEREMIA; B96.20 - UNSP ESCHERICHIA COLI THE CAUSE OF DISEASES CLASSD [facility] SNOMED Code(s): 318971 032004 Plan: 1patient with gram-negative bacteremia source is likely abdominal versus urinary as the patient did have evidence of lower abdominal tenderness could be related to diverticulitis versus pyelonephritis as the patient mentions still makes urine even though she is a dialysis dependent. 2 CT of abdominal pelvis with oral contrast has been suggestive of right-sided hydronephrosis and hydroureter likely the source of his bacteremia. Urology consulted planning for cystoscopy and ureteral stent placement tomorrow 3patient antibiotics has been switched over to Rocephin 2 g daily as it is a sensitive pathogen Time with Patient: Less than 30
[2022-12-06 16:58] LABS: Glucose,Whole Blood 161 mg/dL (70-110)
[2022-12-06 20:20] LABS: Glucose,Whole Blood 170 mg/dL (70-110)
[2022-12-06] MEDS: ATORVASTATIN 80 MG TAB PO SCH (21:02)
[2022-12-07 06:18] LABS: Glucose,Whole Blood 108 mg/dL (70-110)
[2022-12-07 06:27] LABS: Anisocytosis Slight; Basophils % (A) 0 %; Eosinophils # (A) 0.2 k/uL (0-0.7); Eosinophils % (A) 1 %; HCT 31.4 % (34.0-46.0); Hypochromasia Slight; Lymphocytes # (A) 1.1 k/uL (1.0-4.8); Lymphocytes % (A) 7 %; MCH 30.5 pg (25.0-35.0); MCHC 31.8 g/dL (31.0-37.0); MCV 96.1 fL (80.0-100.0); Macrocytosis Slight; Mean Platelet Volume 10.2; Monocytes # (A) 1.1 k/uL (0-1.0); Monocytes % (A) 7 %; Neutrophils % (A) 81 %; Platelet Count 115 k/uL (150-450); RBC 3.26 m/uL (3.80-5.40); WBC 16.1 k/uL (3.8-10.6)
[2022-12-07 06:32] LABS: African American GFR (CKD) 6 (>60 ml/min/1.73 sqM); Anion Gap 13 mmol/L; Blood Urea Nitrogen 69 mg/dL (7-17); Carbon Dioxide 25 mmol/L (22-30); Chloride 95 mmol/L (98-107); Glucose 95 mg/dL (74-99); Non-African American GFR(CKD) 5 (>60 ml/min/1.73 sqM); Potassium 4.4 mmol/L (3.5-5.1); Sodium 133 mmol/L (137-145)
[2022-12-07] MEDS: INSULIN ASPART (NovoLOG) 100 UNIT/ML VIAL SQ SCH ×2 (06:38→17:47)
[2022-12-07 07:16] LABS: Glucose,Whole Blood 108 mg/dL (70-110)
[2022-12-07] MEDS ORDERED: ERGOCALCIFEROL 1,250 MCG (50,000 IU) CAPSULE PO SCH (09:00)
[2022-12-07] MEDS: SEVELAMER 800 MG TAB PO SCH ×3 (09:12→21:33)
[2022-12-07] MEDS: APIXABAN 2.5 MG TABLET PO SCH ×2 (09:12→21:33)
[2022-12-07] MEDS: FERROUS SULFATE 325 MG TAB PO SCH (09:12)
[2022-12-07] MEDS: PANTOPRAZOLE 40 MG TABLET PO SCH (09:12)
[2022-12-07] MEDS: CYANOCOBALAMIN 500 MCG TAB PO SCH (09:12)
[2022-12-07] MEDS: THIAMINE 100 MG TAB PO SCH (09:13)
[2022-12-07] MEDS: LIDOCAINE-PRILOCAINE 2.5-2.5% CREAM 5 GM TUBE TOPICAL SCH (10:04)
[2022-12-07] MEDS: MIDODRINE 5 MG TAB PO SCH (10:10)
[2022-12-07 12:57] LABS: Glucose,Whole Blood 89 mg/dL (70-110)
[2022-12-07] MEDS ORDERED: LACTATED RINGERS 1,000 ML IV ONE (13:19)
[2022-12-07 13:32] LABS: Glucose,Whole Blood 92 mg/dL (70-110)
[2022-12-07] MEDS ORDERED: ONDANSETRON 4 MG/2 ML VIAL ONE (13:34)
[2022-12-07] MEDS ORDERED: ONDANSETRON 4 MG/2 ML VIAL IVP ONE (13:35)
[2022-12-07] MEDS ORDERED: PROPOFOL 10 MG/ML 20 ML VIAL IV ONE (14:24)
[2022-12-07] MEDS ORDERED: SUCCINYLCHOLINE CHLORIDE 200 MG/10 ML VIAL IV ONE (14:24)
[2022-12-07] MEDS ORDERED: fentaNYL (PF) 50 MCG/ML 2 ML AMP ONE (14:24)
[2022-12-07] MEDS ORDERED: ePHEDrine 50 MG/ML 1 ML VIAL ONE (14:24)
[2022-12-07] MEDS ORDERED: LIDOCAINE 2% INJ 20 MG/ML (2 ML VIAL) ONE (14:24)
[2022-12-07] MEDS ORDERED: IOPAMIDOL-370 50ML BTL IRRIGATION ONE (14:55)
--- NOTE | 2022-12-07 15:14 | P.OP ---
Date of Procedure: 12/07/22 Preoperative Diagnosis: Right ureteral stone Postoperative Diagnosis: Same Procedure(s) Performed: Cystoscopy, right retrograde pyelogram and stent insertion Implants: 6-[place]ri [place]ankan by 24 cm stent placed in the right ureter Anesthesia: JOAO Surgeon: Bhupendra Cueto Estimated Blood Loss (ml): 5 Pathology: none sent Condition: stable Disposition: PACU Indications for Procedure: This is a 77-year-old female admitted to the hospital with sepsis secondary to her UTI and a 4 mm obstructing right ureteral stone. Discussed with her given evidence of bacteremia recommend proceeding with right stent insertion. Discussed this is not a definitive way to manage the stone and she will require a right ureteroscopy with holmium laser and stent removal in the future. Risk and benefits and rational of doing surgery was discussed in detail Description of Procedure: Patient brought to the operating room, general anesthesia was induced. She was prepped and draped in sterile fashion and placed in dorsal lithotomy position. Cystoscopy fitted 21-Sri [place]ankan sheath was inserted per urethra, cystoscopy was performed which showed no abnormality within the bladder. Attention was then carried to the right ureteral orifice which was intubated with a sensor wire. Of note the wire appeared to be in a low position compared to the anticapated anatomical location of the kidney. At this time an open-ended catheter was passed over the wire the wire was removed with the catheter in place. limited Retrograde pyelogram was performed which showed that the kidney was indeed a low laying kidney. At this time the wire was readvanced through the catheter the catheter was removed with the wire in place, the wire curl was seen within the renal pelvis. At this time a ureteral stent was passed over the wire, the proximal curl was visualized on fluoroscopy and the distal curl was incised using the cystoscope. There was purulent urine drained from the kidney. The bladder was emptied and then the case. Patient tolerated procedure well taken t o recovery in stable condition
--- NOTE | 2022-12-07 15:25 | FL ---
Intraoperative/procedural fluoroscopic services were provided for right ureteral stent insertion. Tot al fluoroscopy time is 28 seconds with a total of 2 submitted images to PACS. Total DAP [id number] mGym2 . Please see the operative note for further details.
--- NOTE | 2022-12-07 15:37 | P.PN ---
Subjective Patient is seen for follow-up for end-stage renal disease. She is maintained on a Saturday schedule. Patient was transferred for mental status changes. Mentation has improved and appears to be at baseline. Blood cultures are growing E. coli. Urine cultures growing gram-negative bacilli. Patient is maintained on antibiotics. CT abdomen shows bilateral nephrolithiasis and R hydronephrosis and ureteral stone. Objective - Vital Signs Vital signs: Vital Signs Temp 98.7 F 12/07/22 15:24 Pulse 91 12/07/22 15:24 Resp 14 12/07/22 15:24 BP 132/57 12/07/22 15:24 Pulse Ox 98 12/07/22 15:24 FiO2 Intake & Output 12/06/22 12/07/22 12/07/22 18:59 06:59 18:59 Intake Total 950 240 600 Output Total 1505 Balance 950 240 -905 Weight 85.9 kg 85.9 kg Intake: IV 100 Intake, IV Titration 600 240 Amount Sodium Chloride 0.9% 500 500 240 ml @ 999 mls/hr IV .Q31M [facility] Rx#:[id number] cefTRIAXone 2 gm In 100 Sodium Chloride 0.9% 50 ml @ 100 mls/hr IVPB Q24HR [facility] Rx#:[id number] Oral 350 Hemodialysis 500 Output: Hemodialysis 1500 Estimated Blood Loss 5 Other: Voiding Method Bedpan Bedpan Bedpan Diaper Diaper Diaper # Bowel Movements 1 1 - Exam Awake, comfortable, and oriented 3 Examination of the heart S1 and S2 Examination of the lungs bilateral breath sounds are heard Abdomen is soft nontender Examination of the lower extremities shows 1+ edema 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6) k/uL RBC (3.80-5.40) m/uL Hgb (11.4-16.0) gm/dL Hct (34.0-46.0) % RDW (11.5-15.5) % Plt Count (150-450) k/uL Neutrophils # (1.3-7.7) k/uL Monocytes # (0-1.0) k/uL Sodium 133 L (137-145) mmol/L Chloride 95 L (98-107) mmol/L BUN 69 H (7-17) mg/dL Creatinine 7.36 H* (0.52-1.04) mg/dL POC Glucose (mg/dL) (70-110) mg/dL Calcium 8.0 L (8.4-10.2) mg/dL Microbiology - Last 24 Hours (Table) 12/04/22 20:44 Urine Culture - Final Urine,Catheterized Escherichia coli 12/04/22 20:15 Blood Culture Gram Stain - Final Blood Blood Culture - Final Escherichia coli 12/04/22 20:19 Blood Culture Gram Stain - Final Blood Blood Culture - Final Escherichia coli Assessment and Plan Assessment: 1. End-stage renal disease on hemodialysis on a Saturday schedule 2. Mental status changes currently improved. 3. CK D mineral bone disorder 4. Mild volume overload 5. Hypertension with occasional low blood pressure on dialysis needing midodrine 6. Gram-negative bacteremia with blood culture growing E. coli and urine culture growing gram-negative bacilli. 6. Bilateral nephrolithiasis with R hydronephrosis and ureteral stone. Urology on consult. Plan: Hemodialysis today Antibiotics as per ID
[2022-12-07] MEDS ORDERED: IV FLUID CONTINUATION 1,000 ML IV ONE (15:39)
--- NOTE | 2022-12-07 15:42 | P.PN ---
Subjective Progress Note Date: 12/07/22 no acute overnight events, urine and blood culture growing E. coli Objective - Vital Signs Vital signs: Vital Signs Temp 98.7 F 12/07/22 15:24 Pulse 91 12/07/22 15:24 Resp 14 12/07/22 15:24 BP 132/57 12/07/22 15:24 Pulse Ox 98 12/07/22 15:24 FiO2 Intake & Output 12/06/22 12/07/22 12/07/22 18:59 06:59 18:59 Intake Total 950 240 600 Output Total 1505 Balance 950 240 -905 Weight 85.9 kg 85.9 kg Intake: IV 100 Intake, IV Titration 600 240 Amount Sodium Chloride 0.9% 500 500 240 ml @ 999 mls/hr IV .Q31M [facility] Rx#:[id number] cefTRIAXone 2 gm In 100 Sodium Chloride 0.9% 50 ml @ 100 mls/hr IVPB Q24HR [facility] Rx#:[id number] Oral 350 Hemodialysis 500 Output: Hemodialysis 1500 Estimated Blood Loss 5 Other: Voiding Method Bedpan Bedpan Bedpan Diaper Diaper Diaper # Bowel Movements 1 1 - Labs CBC & Chem 7: 12/07/22 05:41 12/07/22 05:41 Labs: Abnormal Lab Results - Last 24 Hours (Table) 12/06/22 12/06/22 12/07/22 Range/Units 16:53 20:18 05:41 WBC 16.1 H (3.8-10.6) k/uL RBC 3.26 L (3.80-5.40) m/uL Hgb 10.0 L D (11.4-16.0) gm/dL Hct 31.4 L (34.0-46.0) % RDW 17.0 H (11.5-15.5) % Plt Count 115 L (150-450) k/uL Neutrophils # 13.0 H (1.3-7.7) k/uL Monocytes # 1.1 H (0-1.0) k/uL Sodium (137-145) mmol/L Chloride (98-107) mmol/L BUN (7-17) mg/dL Creatinine (0.52-1.04) mg/dL POC Glucose (mg/dL) 161 H 170 H (70-110) mg/dL Calcium (8.4-10.2) mg/dL 12/07/22 Range/Units 05:41 WBC (3.8-10.6) k/uL RBC (3.80-5.40) m/uL Hgb (11.4-16.0) gm/dL Hct (34.0-46.0) % RDW (11.5-15.5) % Plt Count (150-450) k/uL Neutrophils # (1.3-7.7) k/uL Monocytes # (0-1.0) k/uL Sodium 133 L (137-145) mmol/L Chloride 95 L (98-107) mmol/L BUN 69 H (7-17) mg/dL Creatinine 7.36 H* (0.52-1.04) mg/dL POC Glucose (mg/dL) (70-110) mg/dL Calcium 8.0 L (8.4-10.2) mg/dL Microbiology - Last 24 Hours (Table) 12/04/22 20:44 Urine Culture - Final Urine,Catheterized Escherichia coli 12/04/22 20:15 Blood Culture Gram Stain - Final Blood Blood Culture - Final Escherichia coli 12/04/22 20:19 Blood Culture Gram Stain - Final Blood Blood Culture - Final Escherichia coli Assessment and Plan Assessment: The patient is afebrile, hypotensive, and on 2 L nasal cannula. The patient is awake and alert, but unable to give a detailed history. She denies any history of kidney stones. No history of renal or bladder cancer. She denies any dysuria or hematuria. She reports having some fever/chills and nausea/vomiting. She does have left flank tenderness to palpitation. The patient will be taken to the OR for a cystoscopy and right stent insertion with The patient will be scheduled for a secondary procedure regarding stone removal one her infection resolves. -OR for cystoscopy and right stent placement (1) Hydronephrosis with obstructing calculus Current Visit: Yes Status: Acute Code(s): N13.2 - HYDRONEPHROSIS WITH RENAL AND URETERAL CALCULOUS OBSTRUCTION SNOMED Code(s): 98988607
--- NOTE | 2022-12-07 15:54 | P.PN ---
Progress Note - Text Progress Note Date: 12/07/22 Chief Complaint: Tired This is a pleasant 77-year-old patient, follows with Dr. Vladislav Long. She had been feeling weak for last 2 days. Is on hemodialysis Saturday and Saturday. For last 4 years. She missed dialysis the previous day because of not feeling well. In the ER feeling more short of breath. Presented from [facility]. Somewhat slow to answer questions in the ER. No obvious fever was documented. Patient also an appointment to see Dr. Granados for breast cancer. At baseline patient is fluid restricted 1200 mL a day. Ambulate with support. He needs assistance with activities. Eats independently. Blood culture drawn yesterday of come back positive. For gram-negative rods. Chronic stable medical conditions include diabetes, GERD, hyperlipidemia, hypertension, osteoarthritis, left breast cancer, peripheral neuropathy, diabetic retinopathy, does use a wheelchair. 12/06/2022: Blood cultures were positive for E. coli./Gram-negative bacilli. On IV ceftriaxone. Likely source renal with obstructing calculus in the lower right ureter with hydronephrosis. Right bilateral multiple renal calculi. Denies abdominal pain. Urology consulted. Decreased appetite. Next hemodialysis tomorrow 12/07/2022: Blood cultures remain positive for E. coli. Patient again delirious today. Pending intervention to the right KUB. Getting hemodialyzed today. IV ceftriaxone. Active Medications Acetaminophen (Acetaminophen Tab 325 Mg Tab) 650 mg PO MOWEFR PRN PRN Reason: DURING DIALYSIS Acetaminophen (Acetaminophen Tab 325 Mg Tab) 650 mg PO Q6H PRN PRN Reason: Pain or Fever > 100.5 Hydrocodone Bitart/Acetaminophen (Hydrocodone/Apap 5-325mg 1 Each Tab) 1 each PO Q4HR PRN PRN Reason: Moderate Pain (Scale 4 to 6) Apixaban (Apixaban 2.5 Mg Tablet) 2.5 mg PO BID [facility]; Protocol Last Admin: 12/07/22 09:12 Dose: Not Given Atenolol (Atenolol 25 Mg Tab) 12.5 mg PO DAILY PRN PRN Reason: hold for SBP <100 or HR <60 Atorvastatin Calcium (Atorvastatin 80 Mg Tab) 80 mg PO [facility] Last Admin: 12/06/22 21:02 Dose: 80 mg Clonidine (Clonidine Hcl 0.1 Mg Tab) 0.1 mg PO DAILY PRN PRN Reason: SBP >160 Cyanocobalamin (Cyanocobalamin 500 Mcg Tab) 1,000 mcg PO DAILY [facility] Last Admin: 12/07/22 09:12 Dose: Not Given Ergocalciferol (Ergocalciferol 1,250 Mcg (50,000 Iu) Capsule) 1,250 mcg PO Fr@0900 [facility] Last Admin: 12/07/22 09:12 Dose: Not Given Escitalopram Oxalate (Escitalopram 5 Mg Tab) 5 mg PO DAILY [facility] Last Admin: 12/06/22 09:11 Dose: 5 mg Ferrous Sulfate (Ferrous Sulfate 325 Mg Tab) 325 mg PO DAILY [facility] Last Admin: 12/07/22 09:12 Dose: Not Given Hydrocortisone (Hydrocortisone 2.5% Rectal Cream 30 Gm Tube) 1 applic RECTAL Q8H PRN PRN Reason: Hemorrhoids Ceftriaxone Sodium 2 gm/ (Sodium Chloride) 50 mls @ 100 mls/hr IVPB Q24HR [facility]; Protocol Last Admin: 12/07/22 11:54 Dose: 100 mls/hr Insulin Aspart (Insulin Aspart (Novolog) 100 Unit/Ml Vial) 0 unit SQ AC-TID [facility]; Protocol Last Admin: 12/07/22 06:38 Dose: Not Given Letrozole (Letrozole 2.5 Mg Tab) 2.5 mg PO DAILY [facility] Last Admin: 12/06/22 09:10 Dose: 2.5 mg Lidocaine/Prilocaine (Lidocaine-Prilocaine 2.5-2.5% Cream 5 Gm Tube) 1 applic TOPICAL MoWeFr@0900 [facility]; Protocol Last Admin: 12/07/22 10:04 Dose: Not Given Loperamide HCl (Loperamide 2 Mg Cap) 2 mg PO QID PRN PRN Reason: Diarrhea Loratadine (Loratadine 10 Mg Tab) 10 mg PO DAILY PRN PRN Reason: Allergy Symptoms Meclizine HCl (Meclizine 12.5 Mg Tab) 12.5 mg PO DAILY [facility] Last Admin: 12/06/22 09:11 Dose: 12.5 mg Midodrine (Midodrine 5 Mg Tab) 5 mg PO MoWeFr@0900 [facility] Last Admin: 12/07/22 10:10 Dose: 5 mg Naloxone HCl (Naloxone 0.4 Mg/Ml 1 Ml Vial) 0.2 mg IV Q2M PRN PRN Reason: Opioid Reversal Ondansetron HCl (Ondansetron 4 Mg Tab) 4 mg PO Q6H PRN PRN Reason: Nausea Pantoprazole Sodium (Pantoprazole 40 Mg Tablet) 40 mg PO DAILY [facility] Last Admin: 12/07/22 09:12 Dose: Not Given Sevelamer Carbonate (Sevelamer 800 Mg Tab) 1,600 mg PO TID [facility] Last Admin: 12/07/22 09:12 Dose: Not Given Simethicone (Simethicone 80 Mg Chewable) 120 mg PO Q8H PRN PRN Reason: Indigestion Thiamine HCl (Thiamine 100 Mg Tab) 100 mg PO DAILY [facility] Last Admin: 12/07/22 09:13 Dose: Not Given Past medical history to include: CHF, diabetes, GERD, hypertension, hyperlipidemia, osteoarthritis, left breast cancer being followed by Dr. Granados, peripheral neuropathy, diabetic retinopathy, left breast lumpectomy Social history: Currently at [facility]. No smoking. No alcohol. Physical examination: VITAL SIGNS: 97.2, 84, 15, 120/62, 95% room air GENERAL: Reclining, tired EYES: Pupils equal. Conjunctiva normal. HEENT: External appearance of nose and ears normal, oral cavity grossly normal. NECK: JVD not raised; masses not palpable. HEART: First and second heart sounds are normal; no edema. LUNGS: Respiratory rate normal; clear to auscultation. ABDOMEN: Soft, nontender, liver spleen not palpable, no masses palpable. PSYCH: Delirious. MUSCULOSKELETAL:No Clubbing/cyanosis;muscles-grossly intact. OA INVESTIGATIONS, reviewed in the clinical context: December 07: White count 16.1 hemoglobin 10 platelets 115 potassium 4.4 BUN 69 creatinine 7.36 White count 7 hemoglobin 12 platelets 108 sodium 129 potassium 5.1 BUN 19 creatinine 9.79 Troponin I 0.143 EKG tracing personally reviewed by me-sinus tachycardia Chest x-ray film personally reviewed by me-small pleural effusion. Blood culture [12/04/2022]: Gram negative rods Assessment and plan: -Sepsis with positive blood cultures from gram-negative rods. Secondary to likely pyelonephritis.: Slow to respond IV ceftriaxone -Right hydronephrosis, right hydroureter from a distal ureteral stone. Acute pyelonephritis.: Slow to respond IV ceftriaxone. December 07: Cystoscopy with right retrograde pyelogram and stent placement was done. Infected urine was visualized. -Bilateral renal calculi -End-stage kidney disease on hemodialysis Saturday. Nephrology following -Acute delirium on presentation from sepsis: Worsening -Chronic medical debility, she uses a wheelchair. -Hyperlipidemia Lipitor 80 mg daily at bedtime -Depression Lexapro 5 mg -Invasive ductal carcinoma of the breast. left partial mastectomy. Patient is to follow up with Dr. Granados. On femara -GERD Omeprazole -Metabolic bone disease secondary to chronic kidney disease Renvela -Diabetic retinopathy -DO NOT RESUSCITATE Patient underwent double J stent placement of the right kidney. Continue IV ceftriaxone the medications. Dialysis. Today
--- NOTE | 2022-12-07 16:05 | P.PN ---
Subjective Progress Note Date: 12/07/22 Principal diagnosis: E. coli bacteremia Patient is a 77-year-old female with a past medical history significant for end-stage renal disease on hemodialysis through the right arm fistula, the patient also makes urine presented to the hospital with weakness has been diagnosed with an E. coli bacteremia CT of abdominal pelvis concerning for right-sided hydronephrosis from an obstructing stone, patient scheduled for cystoscopy and stent placement this afternoon On today's evaluation that is 12/07/2022, the patient remains to be afebrile, the patient is breathing comfortably currently on room air, the patient denies chest pain shortness of breath or cough no abdominal pain or diarrhea Objective - Vital Signs Vital signs: Vital Signs Temp 98.1 F 12/07/22 11:21 Pulse 76 12/07/22 11:21 Resp 16 12/07/22 11:21 BP 116/63 12/07/22 11:21 Pulse Ox 98 12/07/22 11:21 FiO2 Intake & Output 12/06/22 12/07/22 12/07/22 18:59 06:59 18:59 Intake Total 950 240 500 Output Total 1500 Balance 950 240 -1000 Weight 85.9 kg Intake: Intake, IV Titration 600 240 Amount Sodium Chloride 0.9% 500 500 240 ml @ 999 mls/hr IV .Q31M [facility] Rx#:[id number] cefTRIAXone 2 gm In 100 Sodium Chloride 0.9% 50 ml @ 100 mls/hr IVPB Q24HR [facility] Rx#:[id number] Oral 350 Hemodialysis 500 Output: Hemodialysis 1500 Other: Voiding Method Bedpan Bedpan Diaper Diaper # Bowel Movements 1 1 - Exam GENERAL DESCRIPTION: An elderly female lying in bed in no distress RESPIRATORY SYSTEM: Unlabored breathing , decreased breath sounds at bases HEART: S1 S2 regular rate and rhythm , ABDOMEN: Soft , no tenderness EXTREMITIES: No edema feet - Labs CBC & Chem 7: 12/07/22 05:41 12/07/22 05:41 Labs: Abnormal Lab Results - Last 24 Hours (Table) 12/06/22 12/06/22 12/06/22 Range/Units 11:39 16:53 20:18 WBC (3.8-10.6) k/uL RBC (3.80-5.40) m/uL Hgb (11.4-16.0) gm/dL Hct (34.0-46.0) % RDW (11.5-15.5) % Plt Count (150-450) k/uL Neutrophils # (1.3-7.7) k/uL Monocytes # (0-1.0) k/uL Sodium (137-145) mmol/L Chloride (98-107) mmol/L BUN (7-17) mg/dL Creatinine (0.52-1.04) mg/dL POC Glucose (mg/dL) 124 H 161 H 170 H (70-110) mg/dL Calcium (8.4-10.2) mg/dL 12/07/22 12/07/22 Range/Units 05:41 05:41 WBC 16.1 H (3.8-10.6) k/uL RBC 3.26 L (3.80-5.40) m/uL Hgb 10.0 L D (11.4-16.0) gm/dL Hct 31.4 L (34.0-46.0) % RDW 17.0 H (11.5-15.5) % Plt Count 115 L (150-450) k/uL Neutrophils # 13.0 H (1.3-7.7) k/uL Monocytes # 1.1 H (0-1.0) k/uL Sodium 133 L (137-145) mmol/L Chloride 95 L (98-107) mmol/L BUN 69 H (7-17) mg/dL Creatinine 7.36 H* (0.52-1.04) mg/dL POC Glucose (mg/dL) (70-110) mg/dL Calcium 8.0 L (8.4-10.2) mg/dL Microbiology - Last 24 Hours (Table) 12/04/22 20:44 Urine Culture - Preliminary Urine,Catheterized Gram Neg Bacilli 12/04/22 20:15 Blood Culture Gram Stain - Preliminary Blood Blood Culture - Preliminary Gram Neg Bacilli 12/04/22 20:19 Blood Culture Gram Stain - Preliminary Blood Blood Culture - Preliminary Escherichia coli Assessment and Plan (1) E coli bacteremia Current Visit: Yes Status: Acute Code(s): R78.81 - BACTEREMIA; B96.20 - UNSP ESCHERICHIA COLI THE CAUSE OF DISEASES CLASSD [facility] SNOMED Code(s): 837869752671 Plan: 1patient with gram-negative bacteremia source is likely abdominal versus urinary as the patient did have evidence of lower abdominal tenderness could be related to diverticulitis versus pyelonephritis as the patient mentions still makes urine even though she is a dialysis dependent. 2 CT of abdominal pelvis with oral contrast has been suggestive of right-sided hydronephrosis and hydroureter likely the source of his bacteremia. Urology consulted planning for cystoscopy and ureteral stent placement this afternoon 3patient to continue with Rocephin 2 g daily and monitor clinical course closely Time with Patient: Less than 30
[2022-12-07 16:40] LABS: Glucose,Whole Blood 91 mg/dL (70-110)
[2022-12-07] MEDS: ESCITALOPRAM 5 MG TAB PO SCH (17:51)
[2022-12-07] MEDS: LETROZOLE 2.5 MG TAB PO SCH (17:51)
[2022-12-07] MEDS: MECLIZINE 12.5 MG TAB PO SCH (17:51)
[2022-12-07] MEDS: ATORVASTATIN 80 MG TAB PO SCH (22:15)
[2022-12-07 22:38] LABS: Glucose,Whole Blood 228 mg/dL (70-110)
[2022-12-08 05:55] LABS: Glucose,Whole Blood 102 mg/dL (70-110)
[2022-12-08] MEDS: INSULIN ASPART (NovoLOG) 100 UNIT/ML VIAL SQ SCH ×3 (06:27→16:39)
[2022-12-08] MEDS: APIXABAN 2.5 MG TABLET PO SCH ×2 (08:31→20:39)
[2022-12-08] MEDS: PANTOPRAZOLE 40 MG TABLET PO SCH (08:32)
[2022-12-08] MEDS: FERROUS SULFATE 325 MG TAB PO SCH (08:32)
[2022-12-08] MEDS: THIAMINE 100 MG TAB PO SCH (08:32)
[2022-12-08] MEDS: CYANOCOBALAMIN 500 MCG TAB PO SCH (08:32)
[2022-12-08] MEDS: SEVELAMER 800 MG TAB PO SCH ×3 (08:33→20:39)
[2022-12-08] MEDS: ESCITALOPRAM 5 MG TAB PO SCH (08:33)
[2022-12-08] MEDS: MECLIZINE 12.5 MG TAB PO SCH (08:34)
[2022-12-08] MEDS: LETROZOLE 2.5 MG TAB PO SCH (08:34)
--- NOTE | 2022-12-08 09:59 | P.PN ---
Subjective Patient is seen in follow-up for end-stage renal disease. She is made today on hemodialysis on Saturday schedule. On antibiotics for E. coli UTI and bacteremia. Underwent cystoscopy with right ureteral stent placement on 12/07/2022. Resting in bed. Denies chest pain or shortness of breath. On 2 L nasal cannula. Hemodynamic stable. Vital signs are stable. General: No acute distress. HEENT: Head exam is unremarkable. On his cannula. LUNGS: No audible rhonchi or wheezes. HEART: Rate and Rhythm are regular. ABDOMEN: No distention. Nontender. EXTREMITITES: No edema. Objective - Vital Signs Vital signs: Vital Signs Temp 97.4 F L 12/08/22 07:12 Pulse 69 12/08/22 07:12 Resp 20 12/08/22 07:12 BP 116/72 12/08/22 07:12 Pulse Ox 99 12/08/22 07:12 FiO2 Intake & Output 12/07/22 12/08/22 12/08/22 18:59 06:59 18:59 Intake Total 600 Output Total 1505 Balance -905 Weight 85.9 kg Intake: IV 100 Oral 0 Hemodialysis 500 Output: Hemodialysis 1500 Estimated Blood Loss 5 Other: Voiding Method Bedpan Diaper Diaper # Voids 1 1 # Bowel Movements 1 - Labs CBC & Chem 7: 12/07/22 05:41 12/07/22 05:41 Labs: Abnormal Lab Results - Last 24 Hours (Table) 12/07/22 Range/Units 22:37 POC Glucose (mg/dL) 228 H (70-110) mg/dL Microbiology - Last 24 Hours (Table) 12/04/22 20:44 Urine Culture - Final Urine,Catheterized Escherichia coli 12/04/22 20:15 Blood Culture Gram Stain - Final Blood Blood Culture - Final Escherichia coli 12/04/22 20:19 Blood Culture Gram Stain - Final Blood Blood Culture - Final Escherichia coli Assessment and Plan Plan: Assessment: 1. End-stage renal disease maintained on hemodialysis on Saturday schedule. 2. E. coli UTI and bacteremia on antibiotics. 3. Bilateral nephrolithiasis status post cystoscopy with right ureteral stent insertion on 12/07/2022. 4. Hypertension with chronic kidney disease. Stable. 5. Chronic kidney disease mineral bone disease maintained on Renvela. 6. Anemia of chronic kidney disease. Plan: Hemodialysis Saturday. Add Ron.
[2022-12-08 11:20] LABS: Glucose,Whole Blood 172 mg/dL (70-110)
[2022-12-08] MEDS ORDERED: DARBEPOETIN ALFA 40 MCG/0.4 ML SYRINGE SQ SCH (12:00)
--- NOTE | 2022-12-08 13:09 | P.PN ---
Subjective Progress Note Date: 12/08/22 No acute overnight events, underwent right stent insertion yesterday. Objective - Vital Signs Vital signs: Vital Signs Temp 97.4 F L 12/08/22 07:12 Pulse 69 12/08/22 07:12 Resp 20 12/08/22 08:30 BP 116/72 12/08/22 07:12 Pulse Ox 99 12/08/22 07:12 FiO2 Intake & Output 12/07/22 12/08/22 12/08/22 18:59 06:59 18:59 Intake Total 600 Output Total 1505 Balance -905 Weight 85.9 kg Intake: IV 100 Oral 0 Hemodialysis 500 Output: Hemodialysis 1500 Estimated Blood Loss 5 Other: Voiding Method Bedpan Diaper Diaper Diaper # Voids 1 1 # Bowel Movements 1 - Constitutional General appearance: Present: no acute distress - Gastrointestinal General gastrointestinal: Present: soft. Absent: distended, tenderness - Labs CBC & Chem 7: 12/07/22 05:41 12/07/22 05:41 Labs: Abnormal Lab Results - Last 24 Hours (Table) 12/07/22 12/08/22 Range/Units 22:37 11:19 POC Glucose (mg/dL) 228 H 172 H (70-110) mg/dL Microbiology - Last 24 Hours (Table) 12/04/22 20:44 Urine Culture - Final Urine,Catheterized Escherichia coli 12/04/22 20:15 Blood Culture Gram Stain - Final Blood Blood Culture - Final Escherichia coli 12/04/22 20:19 Blood Culture Gram Stain - Final Blood Blood Culture - Final Escherichia coli Assessment and Plan Assessment: 77-year-old female admitted to the hospital with bacteremia, and a 4 mm right- sided obstructing ureteral stone. Underwent a right stent insertion yesterday. Urine and blood culture growing E. coli -Antibiotics per infectious disease -Okay for discharge from urology standpoint, we will arrange for outpatient right-sided ureteroscopy with holmium laser and stent removal in 3-4 weeks (1) Hydronephrosis with obstructing calculus Current Visit: Yes Status: Acute Code(s): N13.2 - HYDRONEPHROSIS WITH RENAL AND URETERAL CALCULOUS OBSTRUCTION SNOMED Code(s): 12910642
[2022-12-08 16:29] LABS: Glucose,Whole Blood 85 mg/dL (70-110)
--- NOTE | 2022-12-08 18:41 | P.PN ---
Progress Note - Text Progress Note Date: 12/08/22 Chief Complaint: Tired This is a pleasant 77-year-old patient, follows with Dr. Vladislav Long. She had been feeling weak for last 2 days. Is on hemodialysis Saturday and Saturday. For last 4 years. She missed dialysis the previous day because of not feeling well. In the ER feeling more short of breath. Presented from [facility]. Somewhat slow to answer questions in the ER. No obvious fever was documented. Patient also an appointment to see Dr. Granados for breast cancer. At baseline patient is fluid restricted 1200 mL a day. Ambulate with support. He needs assistance with activities. Eats independently. Blood culture drawn yesterday of come back positive. For gram-negative rods. Chronic stable medical conditions include diabetes, GERD, hyperlipidemia, hypertension, osteoarthritis, left breast cancer, peripheral neuropathy, diabetic retinopathy, does use a wheelchair. 12/06/2022: Blood cultures were positive for E. coli./Gram-negative bacilli. On IV ceftriaxone. Likely source renal with obstructing calculus in the lower right ureter with hydronephrosis. Right bilateral multiple renal calculi. Denies abdominal pain. Urology consulted. Decreased appetite. Next hemodialysis tomorrow 12/07/2022: Blood cultures remain positive for E. coli. Patient again delirious today. Pending intervention to the right KUB. Getting hemodialyzed today. IV ceftriaxone. 12/08/2022: Patient yesterday had right-sided double-J stent placed. Pus was noted. Delirium better today. Tired. Intake, 25%. IV ceftriaxone Active Medications Acetaminophen (Acetaminophen Tab 325 Mg Tab) 650 mg PO MOWEFR PRN PRN Reason: DURING DIALYSIS Acetaminophen (Acetaminophen Tab 325 Mg Tab) 650 mg PO Q6H PRN PRN Reason: Pain or Fever > 100.5 Hydrocodone Bitart/Acetaminophen (Hydrocodone/Apap 5-325mg 1 Each Tab) 1 each PO Q4HR PRN PRN Reason: Moderate Pain (Scale 4 to 6) Apixaban (Apixaban 2.5 Mg Tablet) 2.5 mg PO BID [facility]; Protocol Last Admin: 12/08/22 08:31 Dose: 2.5 mg Atenolol (Atenolol 25 Mg Tab) 12.5 mg PO DAILY PRN PRN Reason: hold for SBP <100 or HR <60 Atorvastatin Calcium (Atorvastatin 80 Mg Tab) 80 mg PO HS [facility] Last Admin: 12/07/22 22:15 Dose: 80 mg Clonidine (Clonidine Hcl 0.1 Mg Tab) 0.1 mg PO DAILY PRN PRN Reason: SBP >160 Cyanocobalamin (Cyanocobalamin 500 Mcg Tab) 1,000 mcg PO DAILY [facility] Last Admin: 12/08/22 08:32 Dose: 1,000 mcg Darbepoetin Bryant (Darbepoetin Bryant 40 Mcg/0.4 Ml Syringe) 40 mcg SQ Q7D [facility] Last Admin: 12/08/22 12:28 Dose: 40 mcg Ergocalciferol (Ergocalciferol 1,250 Mcg (50,000 Iu) Capsule) 1,250 mcg PO Fr@0900 [facility] Last Admin: 12/07/22 09:12 Dose: Not Given Escitalopram Oxalate (Escitalopram 5 Mg Tab) 5 mg PO DAILY [facility] Last Admin: 12/08/22 08:33 Dose: 5 mg Ferrous Sulfate (Ferrous Sulfate 325 Mg Tab) 325 mg PO DAILY [facility] Last Admin: 12/08/22 08:32 Dose: 325 mg Hydrocortisone (Hydrocortisone 2.5% Rectal Cream 30 Gm Tube) 1 applic RECTAL Q8H PRN PRN Reason: Hemorrhoids Ceftriaxone Sodium 2 gm/ (Sodium Chloride) 50 mls @ 100 mls/hr IVPB Q24HR [facility]; Protocol Last Admin: 12/08/22 08:34 Dose: 100 mls/hr Insulin Aspart (Insulin Aspart (Novolog) 100 Unit/Ml Vial) 0 unit SQ AC-TID [facility]; Protocol Last Admin: 12/08/22 16:39 Dose: Not Given Letrozole (Letrozole 2.5 Mg Tab) 2.5 mg PO DAILY [facility] Last Admin: 12/08/22 08:34 Dose: 2.5 mg Lidocaine/Prilocaine (Lidocaine-Prilocaine 2.5-2.5% Cream 5 Gm Tube) 1 applic TOPICAL MoWeFr@0900 [facility]; Protocol Last Admin: 12/07/22 10:04 Dose: Not Given Loperamide HCl (Loperamide 2 Mg Cap) 2 mg PO QID PRN PRN Reason: Diarrhea Loratadine (Loratadine 10 Mg Tab) 10 mg PO DAILY PRN PRN Reason: Allergy Symptoms Meclizine HCl (Meclizine 12.5 Mg Tab) 12.5 mg PO DAILY [facility] Last Admin: 12/08/22 08:34 Dose: 12.5 mg Midodrine (Midodrine 5 Mg Tab) 5 mg PO MoWeFr@0900 [facility] Last Admin: 12/07/22 10:10 Dose: 5 mg Naloxone HCl (Naloxone 0.4 Mg/Ml 1 Ml Vial) 0.2 mg IV Q2M PRN PRN Reason: Opioid Reversal Ondansetron HCl (Ondansetron 4 Mg Tab) 4 mg PO Q6H PRN PRN Reason: Nausea Pantoprazole Sodium (Pantoprazole 40 Mg Tablet) 40 mg PO DAILY [facility] Last Admin: 12/08/22 08:32 Dose: 40 mg Sevelamer Carbonate (Sevelamer 800 Mg Tab) 1,600 mg PO TID [facility] Last Admin: 12/08/22 16:17 Dose: 1,600 mg Simethicone (Simethicone 80 Mg Chewable) 120 mg PO Q8H PRN PRN Reason: Indigestion Thiamine HCl (Thiamine 100 Mg Tab) 100 mg PO DAILY [facility] Last Admin: 12/08/22 08:32 Dose: 100 mg Past medical history to include: CHF, diabetes, GERD, hypertension, hyperlipidemia, osteoarthritis, left breast cancer being followed by Dr. Granados, peripheral neuropathy, diabetic retinopathy, left breast lumpectomy Social history: Currently at [facility]. No smoking. No alcohol. Physical examination: VITAL SIGNS: 99, 65, 20, 115/65, 98% on 2 L GENERAL: Reclining, tired EYES: Pupils equal. Conjunctiva normal. HEENT: External appearance of nose and ears normal, oral cavity grossly normal. NECK: JVD not raised; masses not palpable. HEART: First and second heart sounds are normal; no edema. LUNGS: Respiratory rate normal; clear to auscultation. ABDOMEN: Soft, nontender, liver spleen not palpable, no masses palpable. PSYCH: Answering questions more appropriately MUSCULOSKELETAL:No Clubbing/cyanosis;muscles-grossly intact. OA INVESTIGATIONS, reviewed in the clinical context: December 07: White count 16.1 hemoglobin 10 platelets 115 potassium 4.4 BUN 69 creatinine 7.36 White count 7 hemoglobin 12 platelets 108 sodium 129 potassium 5.1 BUN 19 creatinine 9.79 Troponin I 0.143 EKG tracing personally reviewed by nh-sinus tachycardia Chest x-ray film personally reviewed by me-small pleural effusion. Blood culture [12/04/2022]: Gram negative rods Assessment and plan: -Sepsis with positive blood cultures /E. coli. Secondary to likely pyelonephritis.: Slow to respond IV ceftriaxone -Right hydronephrosis, right hydroureter from a distal ureteral stone. Acute pyelonephritis.: Slow to respond IV ceftriaxone. December 07: Cystoscopy with right retrograde pyelogram and stent placement was done. Infected urine was visualized. -Bilateral renal calculi -End-stage kidney disease on hemodialysis Saturday. Nephrology following -Acute delirium on presentation from sepsis: Some improvement -Chronic medical debility, she uses a wheelchair. -Hyperlipidemia Lipitor 80 mg daily at bedtime -Depression Lexapro 5 mg -Invasive ductal carcinoma of the breast. left partial mastectomy. Patient is to follow up with Dr. Granados. On femara -GERD Omeprazole -Metabolic bone disease secondary to chronic kidney disease Renvela -Diabetic retinopathy -DO NOT RESUSCITATE IV ceftriaxone. Dialysis today. Decreased oral intake. Started IV fluids 75 mL an hour. Repeat labs
[2022-12-08 20:24] LABS: Glucose,Whole Blood 97 mg/dL (70-110)
[2022-12-08] MEDS: ATORVASTATIN 80 MG TAB PO SCH (20:39)
--- NOTE | 2022-12-08 22:16 | P.PN ---
Subjective Progress Note Date: 12/08/22 Principal diagnosis: E. coli bacteremia Patient is a 77-year-old female with a past medical history significant for end-stage renal disease on hemodialysis through the right arm fistula, the patient also makes urine presented to the hospital with weakness has been diagnosed with an E. coli bacteremia CT of abdominal pelvis concerning for right-sided hydronephrosis from an obstructing stone, patient scheduled for cystoscopy and stent placement this afternoon On today's evaluation that is 12/08/2022, the patient continues to be afebrile, the patient is breathing comfortably on 2 L nasal cannula oxygen, the patient denies chest pain shortness of breath or cough no abdominal pain or diarrhea Objective - Vital Signs Vital signs: Vital Signs Temp 97.4 F L 12/08/22 07:12 Pulse 69 12/08/22 07:12 Resp 20 12/08/22 07:12 BP 116/72 12/08/22 07:12 Pulse Ox 99 12/08/22 07:12 FiO2 Intake & Output 12/07/22 12/08/22 12/08/22 18:59 06:59 18:59 Intake Total 600 Output Total 1505 Balance -905 Weight 85.9 kg Intake: IV 100 Oral 0 Hemodialysis 500 Output: Hemodialysis 1500 Estimated Blood Loss 5 Other: Voiding Method Bedpan Diaper Diaper # Voids 1 1 # Bowel Movements 1 - Exam GENERAL DESCRIPTION: An elderly female lying in bed in no distress RESPIRATORY SYSTEM: Unlabored breathing , decreased breath sounds at bases HEART: S1 S2 regular rate and rhythm , ABDOMEN: Soft , no tenderness EXTREMITIES: No edema feet - Labs CBC & Chem 7: 12/07/22 05:41 12/07/22 05:41 Labs: Abnormal Lab Results - Last 24 Hours (Table) 12/07/22 Range/Units 22:37 POC Glucose (mg/dL) 228 H (70-110) mg/dL Microbiology - Last 24 Hours (Table) 12/04/22 20:44 Urine Culture - Final Urine,Catheterized Escherichia coli 12/04/22 20:15 Blood Culture Gram Stain - Final Blood Blood Culture - Final Escherichia coli 12/04/22 20:19 Blood Culture Gram Stain - Final Blood Blood Culture - Final Escherichia coli Assessment and Plan (1) E coli bacteremia Current Visit: Yes Status: Acute Code(s): R78.81 - BACTEREMIA; B96.20 - UNSP ESCHERICHIA COLI THE CAUSE OF DISEASES CLASSD ELSR SNOMED Code(s): 507294018043 Plan: 1patient with gram-negative bacteremia source is likely abdominal versus urinary as the patient did have evidence of lower abdominal tenderness could be related to diverticulitis versus pyelonephritis as the patient mentions still makes urine even though she is a dialysis dependent. 2 CT of abdominal pelvis with oral contrast has been suggestive of right-sided hydronephrosis and hydroureter likely the source of his bacteremia. Patient is status post cystoscopy and ureteral stent placement on 12/07/2021 3patient seemed to have some clinical improvement and will continue with Rocephin 2 g daily and continue supportive care Time with Patient: Less than 30
[2022-12-09] MEDS: SODIUM CHLORIDE 0.45% 1,000 ML IV SCH ×2 (00:16→09:22)
[2022-12-09 01:17] LABS: Glucose,Whole Blood 92 mg/dL (70-110)
[2022-12-09 05:13] LABS: Anisocytosis Slight; HCT 34.4 % (34.0-46.0); HGB 10.6 gm/dL (11.4-16.0); Hypochromasia Moderate; MCH 30.1 pg (25.0-35.0); MCHC 30.9 g/dL (31.0-37.0); MCV 97.6 fL (80.0-100.0); Macrocytosis Slight; Platelet Count 140 k/uL (150-450); RBC 3.53 m/uL (3.80-5.40); RDW 16.9 % (11.5-15.5); WBC 16.2 k/uL (3.8-10.6)
[2022-12-09 05:27] LABS: ALT 42 U/L (4-34); AST 31 U/L (14-36); African American GFR (CKD) 7 (>60 ml/min/1.73 sqM); Albumin 2.9 g/dL (3.5-5.0); Albumin/Globulin Ratio 1.1; Alkaline Phosphatase 178 U/L (38-126); Anion Gap 11 mmol/L; Blood Urea Nitrogen 46 mg/dL (7-17); Calcium 7.9 mg/dL (8.4-10.2); Carbon Dioxide 29 mmol/L (22-30); Chloride 95 mmol/L (98-107); Globulin 2.7 g/dL; Glucose 84 mg/dL (74-99); Non-African American GFR(CKD) 6 (>60 ml/min/1.73 sqM); Potassium 4.2 mmol/L (3.5-5.1); Sodium 135 mmol/L (137-145); Total Bilirubin 0.6 mg/dL (0.2-1.3); Total Protein 5.6 g/dL (6.3-8.2)
[2022-12-09 05:55] LABS: Glucose,Whole Blood 86 mg/dL (70-110)
[2022-12-09] MEDS: INSULIN ASPART (NovoLOG) 100 UNIT/ML VIAL SQ SCH ×3 (06:37→16:54)
[2022-12-09 07:30] LABS: Band Neutrophils % 5 %; Eosinophils # (M) 0.16 k/uL (0-0.7); Lymphocytes # (M) 1.62 k/uL (1.0-4.8); Neutrophils % (M) 76 %; Nucleated Red Blood Cells 0 /100 WBC (0-0); Total Cells Counted 100
[2022-12-09 07:35] LABS: Poikilocytosis (M) Present
[2022-12-09] MEDS: CYANOCOBALAMIN 500 MCG TAB PO SCH (07:56)
[2022-12-09] MEDS: SEVELAMER 800 MG TAB PO SCH ×3 (07:56→21:39)
[2022-12-09] MEDS: PANTOPRAZOLE 40 MG TABLET PO SCH (07:57)
[2022-12-09] MEDS: ESCITALOPRAM 5 MG TAB PO SCH (07:57)
[2022-12-09] MEDS: APIXABAN 2.5 MG TABLET PO SCH ×2 (07:57→21:39)
[2022-12-09] MEDS: FERROUS SULFATE 325 MG TAB PO SCH (07:57)
[2022-12-09] MEDS: LETROZOLE 2.5 MG TAB PO SCH (07:57)
[2022-12-09] MEDS: MECLIZINE 12.5 MG TAB PO SCH (07:57)
[2022-12-09] MEDS: THIAMINE 100 MG TAB PO SCH (07:57)
--- NOTE | 2022-12-09 10:33 | P.PN ---
Subjective Patient is seen in follow-up for end-stage renal disease. She is maintained on hemodialysis on Saturday schedule. On antibiotics for E. coli UTI and bacteremia. Underwent cystoscopy with right ureteral stent placement on 12/07/2022. Resting in bed. Denies chest pain or shortness of breath. On 2 L nasal cannula. Hemodynamic stable. Complains of loose bowel movements. Vital signs are stable. General: No acute distress. HEENT: Head exam is unremarkable. On his cannula. LUNGS: No audible rhonchi or wheezes. HEART: Rate and Rhythm are regular. ABDOMEN: No distention. Nontender. EXTREMITITES: No edema. Objective - Vital Signs Vital signs: Vital Signs Temp 98.4 F 12/09/22 07:00 Pulse 74 12/09/22 07:00 Resp 18 12/09/22 07:00 BP 131/74 12/09/22 07:00 Pulse Ox 100 12/09/22 07:00 FiO2 Intake & Output 12/08/22 12/09/22 12/09/22 18:59 06:59 18:59 Intake Total 240 Balance 240 Weight 87.5 kg Intake: Oral 240 Other: Voiding Method Diaper Diaper Diaper # Voids 2 # Bowel Movements 2 1 - Labs CBC & Chem 7: 12/09/22 04:30 12/09/22 04:30 Labs: Abnormal Lab Results - Last 24 Hours (Table) 12/08/22 12/09/22 12/09/22 Range/Units 11:19 04:30 04:30 WBC 16.2 H (3.8-10.6) k/uL RBC 3.53 L (3.80-5.40) m/uL Hgb 10.6 L (11.4-16.0) gm/dL MCHC 30.9 L (31.0-37.0) g/dL RDW 16.9 H (11.5-15.5) % Plt Count 140 L (150-450) k/uL Neutrophils # (Manual) 13.10 H (1.3-7.7) k/uL Monocytes # (Manual) 1.30 H (0-1.0) k/uL Sodium 135 L (137-145) mmol/L Chloride 95 L (98-107) mmol/L BUN 46 H (7-17) mg/dL Creatinine 6.46 H (0.52-1.04) mg/dL POC Glucose (mg/dL) 172 H (70-110) mg/dL Calcium 7.9 L (8.4-10.2) mg/dL ALT 42 H (4-34) U/L Alkaline Phosphatase 178 H (38-126) U/L Total Protein 5.6 L (6.3-8.2) g/dL Albumin 2.9 L (3.5-5.0) g/dL Assessment and Plan Plan: Assessment: 1. End-stage renal disease maintained on hemodialysis on Saturday schedule. 2. E. coli UTI and bacteremia on antibiotics. 3. Bilateral nephrolithiasis status post cystoscopy with right ureteral stent insertion on 12/07/2022. 4. Hypertension with chronic kidney disease. Stable. 5. Chronic kidney disease mineral bone disease maintained on Renvela. 6. Anemia of chronic kidney disease. On Aranesp. Plan: Hemodialysis Saturday. Hep-Lock IV fluids.
[2022-12-09 11:34] LABS: Glucose,Whole Blood 177 mg/dL (70-110)
--- NOTE | 2022-12-09 11:51 | P.PN ---
Subjective No acute overnight events, underwent right stent insertion 12/07. Her mental status is improving. Objective - Vital Signs Vital signs: Vital Signs Temp 98.4 F 12/09/22 07:00 Pulse 74 12/09/22 07:00 Resp 18 12/09/22 07:00 BP 131/74 12/09/22 07:00 Pulse Ox 100 12/09/22 07:00 FiO2 Intake & Output 12/08/22 12/09/22 12/09/22 18:59 06:59 18:59 Intake Total 240 Balance 240 Weight 87.5 kg Intake: Oral 240 Other: Voiding Method Diaper Diaper Diaper # Voids 2 # Bowel Movements 2 1 - Constitutional General appearance: Present: no acute distress - Gastrointestinal General gastrointestinal: Present: soft. Absent: tenderness - Labs CBC & Chem 7: 12/09/22 04:30 12/09/22 04:30 Labs: Abnormal Lab Results - Last 24 Hours (Table) 12/09/22 12/09/22 12/09/22 Range/Units 04:30 04:30 11:29 WBC 16.2 H (3.8-10.6) k/uL RBC 3.53 L (3.80-5.40) m/uL Hgb 10.6 L (11.4-16.0) gm/dL MCHC 30.9 L (31.0-37.0) g/dL RDW 16.9 H (11.5-15.5) % Plt Count 140 L (150-450) k/uL Neutrophils # (Manual) 13.10 H (1.3-7.7) k/uL Monocytes # (Manual) 1.30 H (0-1.0) k/uL Sodium 135 L (137-145) mmol/L Chloride 95 L (98-107) mmol/L BUN 46 H (7-17) mg/dL Creatinine 6.46 H (0.52-1.04) mg/dL POC Glucose (mg/dL) 177 H (70-110) mg/dL Calcium 7.9 L (8.4-10.2) mg/dL ALT 42 H (4-34) U/L Alkaline Phosphatase 178 H (38-126) U/L Total Protein 5.6 L (6.3-8.2) g/dL Albumin 2.9 L (3.5-5.0) g/dL Assessment and Plan Assessment: 77-year-old female admitted to the hospital with bacteremia, and a 4 mm right-sided obstructing ureteral stone. Underwent a right stent insertion 12/07. Urine and blood culture growing E. coli -Antibiotics per infectious disease -Okay for discharge from urology standpoint, we will arrange for outpatient right-sided ureteroscopy with holmium laser and stent removal in 3-4 weeks (1) Hydronephrosis with obstructing calculus Current Visit: Yes Status: Acute Code(s): N13.2 - HYDRONEPHROSIS WITH RENAL AND URETERAL CALCULOUS OBSTRUCTION SNOMED Code(s): 84730507
--- NOTE | 2022-12-09 14:33 | P.PN ---
Progress Note - Text Progress Note Date: 12/09/22 Chief Complaint: Tired This is a pleasant 77-year-old patient, follows with Dr. Vladislav Long. She had been feeling weak for last 2 days. Is on hemodialysis Saturday and Saturday. For last 4 years. She missed dialysis the previous day because of not feeling well. In the ER feeling more short of breath. Presented from [facility]. Somewhat slow to answer questions in the ER. No obvious fever was documented. Patient also an appointment to see Dr. Granados for breast cancer. At baseline patient is fluid restricted 1200 mL a day. Ambulate with support. He needs assistance with activities. Eats independently. Blood culture drawn yesterday of come back positive. For gram-negative rods. Chronic stable medical conditions include diabetes, GERD, hyperlipidemia, hypertension, osteoarthritis, left breast cancer, peripheral neuropathy, diabetic retinopathy, does use a wheelchair. 12/06/2022: Blood cultures were positive for E. coli./Gram-negative bacilli. On IV ceftriaxone. Likely source renal with obstructing calculus in the lower right ureter with hydronephrosis. Right bilateral multiple renal calculi. Denies abdominal pain. Urology consulted. Decreased appetite. Next hemodialysis tomorrow 12/07/2022: Blood cultures remain positive for E. coli. Patient again delirious today. Pending intervention to the right KUB. Getting hemodialyzed today. IV ceftriaxone. 12/08/2022: Patient yesterday had right-sided double-J stent placed. Pus was noted. Delirium better today. Tired. Intake, 25%. IV ceftriaxone 12/09/2022: Rather tired. She ate a good breakfast. Repeat blood cultures ordered. We'll have the patient sit up at the edge of the bed for lunch. Discussed with nurse. Active Medications Acetaminophen (Acetaminophen Tab 325 Mg Tab) 650 mg PO MOWEFR PRN PRN Reason: DURING DIALYSIS Acetaminophen (Acetaminophen Tab 325 Mg Tab) 650 mg PO Q6H PRN PRN Reason: Pain or Fever > 100.5 Hydrocodone Bitart/Acetaminophen (Hydrocodone/Apap 5-325mg 1 Each Tab) 1 each PO Q4HR PRN PRN Reason: Moderate Pain (Scale 4 to 6) Last Admin: 12/08/22 20:41 Dose: 1 each Apixaban (Apixaban 2.5 Mg Tablet) 2.5 mg PO BID [facility]; Protocol Last Admin: 12/09/22 07:57 Dose: 2.5 mg Atenolol (Atenolol 25 Mg Tab) 12.5 mg PO DAILY PRN PRN Reason: hold for SBP <100 or HR <60 Atorvastatin Calcium (Atorvastatin 80 Mg Tab) 80 mg PO HS [facility] Last Admin: 12/08/22 20:39 Dose: 80 mg Clonidine (Clonidine Hcl 0.1 Mg Tab) 0.1 mg PO DAILY PRN PRN Reason: SBP >160 Cyanocobalamin (Cyanocobalamin 500 Mcg Tab) 1,000 mcg PO DAILY [facility] Last Admin: 12/09/22 07:56 Dose: 1,000 mcg Darbepoetin Bryant (Darbepoetin Bryant 40 Mcg/0.4 Ml Syringe) 40 mcg SQ Q7D [facility] Last Admin: 12/08/22 12:28 Dose: 40 mcg Ergocalciferol (Ergocalciferol 1,250 Mcg (50,000 Iu) Capsule) 1,250 mcg PO Fr@0900 [facility] Last Admin: 12/07/22 09:12 Dose: Not Given Escitalopram Oxalate (Escitalopram 5 Mg Tab) 5 mg PO DAILY [facility] Last Admin: 12/09/22 07:57 Dose: 5 mg Ferrous Sulfate (Ferrous Sulfate 325 Mg Tab) 325 mg PO DAILY [facility] Last Admin: 12/09/22 07:57 Dose: 325 mg Hydrocortisone (Hydrocortisone 2.5% Rectal Cream 30 Gm Tube) 1 applic RECTAL Q8H PRN PRN Reason: Hemorrhoids Ceftriaxone Sodium 2 gm/ (Sodium Chloride) 50 mls @ 100 mls/hr IVPB Q24HR [facility]; Protocol Last Admin: 12/09/22 08:08 Dose: 100 mls/hr Insulin Aspart (Insulin Aspart (Novolog) 100 Unit/Ml Vial) 0 unit SQ AC-TID [facility]; Protocol Last Admin: 12/09/22 11:58 Dose: 2 unit Letrozole (Letrozole 2.5 Mg Tab) 2.5 mg PO DAILY [facility] Last Admin: 12/09/22 07:57 Dose: 2.5 mg Lidocaine/Prilocaine (Lidocaine-Prilocaine 2.5-2.5% Cream 5 Gm Tube) 1 applic TOPICAL MoWeFr@0900 [facility]; Protocol Last Admin: 03/17/23 10:04 Dose: Not Given Loperamide HCl (Loperamide 2 Mg Cap) 2 mg PO QID PRN PRN Reason: Diarrhea Loratadine (Loratadine 10 Mg Tab) 10 mg PO DAILY PRN PRN Reason: Allergy Symptoms Meclizine HCl (Meclizine 12.5 Mg Tab) 12.5 mg PO DAILY [facility] Last Admin: 12/09/22 07:57 Dose: 12.5 mg Midodrine (Midodrine 5 Mg Tab) 5 mg PO MoWeFr@0900 [facility] Last Admin: 12/07/22 10:10 Dose: 5 mg Naloxone HCl (Naloxone 0.4 Mg/Ml 1 Ml Vial) 0.2 mg IV Q2M PRN PRN Reason: Opioid Reversal Ondansetron HCl (Ondansetron 4 Mg Tab) 4 mg PO Q6H PRN PRN Reason: Nausea Pantoprazole Sodium (Pantoprazole 40 Mg Tablet) 40 mg PO DAILY [facility] Last Admin: 12/09/22 07:57 Dose: 40 mg Sevelamer Carbonate (Sevelamer 800 Mg Tab) 1,600 mg PO TID [facility] Last Admin: 12/09/22 07:56 Dose: 1,600 mg Simethicone (Simethicone 80 Mg Chewable) 120 mg PO Q8H PRN PRN Reason: Indigestion Thiamine HCl (Thiamine 100 Mg Tab) 100 mg PO DAILY [facility] Last Admin: 12/09/22 07:57 Dose: 100 mg Past medical history to include: CHF, diabetes, GERD, hypertension, hyperlipidemia, osteoarthritis, left breast cancer being followed by Dr. Granados, peripheral neuropathy, diabetic retinopathy, left breast lumpectomy Social history: Currently at [facility]. No smoking. No alcohol. Physical examination: VITAL SIGNS: Afebrile, 74, 18, 131 with 74, 100% on 2 L GENERAL: Reclining, tired EYES: Pupils equal. Conjunctiva normal. HEENT: External appearance of nose and ears normal, oral cavity grossly normal. NECK: JVD not raised; masses not palpable. HEART: First and second heart sounds are normal; no edema. LUNGS: Respiratory rate normal; clear to auscultation. ABDOMEN: Soft, nontender, liver spleen not palpable, no masses palpable. PSYCH: Answering questions appropriately, tired MUSCULOSKELETAL:No Clubbing/cyanosis;muscles-grossly intact. OA INVESTIGATIONS, reviewed in the clinical context: December 09: White count 16.2 hemoglobin 10.6 platelets 140 potassium 4.2 BUN 46 creatinine 6.46 December 07: White count 16.1 hemoglobin 10 platelets 115 potassium 4.4 BUN 69 creatinine 7.36 White count 7 hemoglobin 12 platelets 108 sodium 129 potassium 5.1 BUN 19 creatinine 9.79 Troponin I 0.143 EKG tracing personally reviewed by me-sinus tachycardia Chest x-ray film personally reviewed by me-small pleural effusion. Blood culture [12/04/2022]: E. coli Urine culture [December 04]: E. coli Assessment and plan: -Sepsis with positive blood cultures /E. coli. Secondary to likely pyelonephritis.: IV ceftriaxone -Right hydronephrosis, right hydroureter from a distal ureteral stone. Acute pyelonephritis.: IV ceftriaxone. December 07: Cystoscopy with right retrograde pyelogram and stent placement was done. Infected urine was visualized. -Bilateral renal calculi -End-stage kidney disease on hemodialysis Saturday. Nephrology following -Acute delirium on presentation from sepsis: Some improvement -Chronic medical debility, she uses a wheelchair. -Hyperlipidemia Lipitor 80 mg daily at bedtime -Depression Lexapro 5 mg -Invasive ductal carcinoma of the breast. left partial mastectomy. Patient is to follow up with Dr. Granados. On femara -GERD Omeprazole -Metabolic bone disease secondary to chronic kidney disease Renvela -Diabetic retinopathy -DO NOT RESUSCITATE IV ceftriaxone. Dialysis follow with nephrology. Repeat blood culture ordered today.
--- NOTE | 2022-12-09 15:53 | P.PN ---
Subjective Progress Note Date: 12/09/22 Principal diagnosis: Hx of breast cancer Upon visit today pt is resting comfortably in bed. She is s/p right urethral stent 2 days ago. She reports she is still producing urine. Denies flank pain, abdominal pain, n/v/d, fever and chills. No reported complaints Objective - Vital Signs Vital signs: Vital Signs Temp 98.5 F 12/09/22 13:20 Pulse 68 12/09/22 13:20 Resp 17 12/09/22 13:20 BP 106/60 12/09/22 13:20 Pulse Ox 92 L 12/09/22 13:20 FiO2 Intake & Output 12/08/22 12/09/22 12/09/22 18:59 06:59 18:59 Intake Total 240 Balance 240 Weight 87.5 kg Intake: Oral 240 Other: Voiding Method Diaper Diaper Diaper # Voids 2 # Bowel Movements 2 1 1 - Constitutional General appearance: Present: average body habitus, no acute distress - EENT Eyes: Present: anicteric sclerae, EOMI ENT: Present: hearing grossly normal - Respiratory Details: breathing is even and unlabored - Cardiovascular Details: skin warm and dry - Gastrointestinal General gastrointestinal: Present: soft. Absent: tenderness - Integumentary Integumentary: Present: normal - Neurologic Neurologic Comment(s): grossly intact - Musculoskeletal Musculoskeletal: Present: strength equal bilaterally - Labs CBC & Chem 7: 12/09/22 04:30 12/09/22 04:30 Labs: Abnormal Lab Results - Last 24 Hours (Table) 12/09/22 12/09/22 12/09/22 Range/Units 04:30 04:30 11:29 WBC 16.2 H (3.8-10.6) k/uL RBC 3.53 L (3.80-5.40) m/uL Hgb 10.6 L (11.4-16.0) gm/dL MCHC 30.9 L (31.0-37.0) g/dL RDW 16.9 H (11.5-15.5) % Plt Count 140 L (150-450) k/uL Neutrophils # (Manual) 13.10 H (1.3-7.7) k/uL Monocytes # (Manual) 1.30 H (0-1.0) k/uL Sodium 135 L (137-145) mmol/L Chloride 95 L (98-107) mmol/L BUN 46 H (7-17) mg/dL Creatinine 6.46 H (0.52-1.04) mg/dL POC Glucose (mg/dL) 177 H (70-110) mg/dL Calcium 7.9 L (8.4-10.2) mg/dL ALT 42 H (4-34) U/L Alkaline Phosphatase 178 H (38-126) U/L Total Protein 5.6 L (6.3-8.2) g/dL Albumin 2.9 L (3.5-5.0) g/dL Assessment and Plan (1) Invasive ductal carcinoma of breast Current Visit: Yes Status: Acute Priority: High Code(s): C50.919 - MALIGNANT NEOPLASM OF UNSP SITE OF UNSPECIFIED FEMALE BREAST SNOMED Code(s): 815575634 Plan: Invasive ductal carcinoma: -Pt has been on adjuvant femara daily since 2017, s/p partial left mastectomy. -Mammogram, December 2021 was negative for malignancy -Continue femara daily -Will schedule f/u with Dr. Carlos Adams in 2 weeks. Appt will be placed in discharge plan Hydronephrosis: -CT scan showed right sided hydronephrosis and hydroureter -Urology following, right uretheral stent placed. s/p procedure x 2 days, pt reports feeling well. -Pt switched to Rocephin. Blood cultures and urine cultures positive for E. coli. ID following
[2022-12-09 16:24] LABS: Glucose,Whole Blood 149 mg/dL (70-110)
[2022-12-09 20:58] LABS: Glucose,Whole Blood 217 mg/dL (70-110)
[2022-12-09] MEDS: ATORVASTATIN 80 MG TAB PO SCH (21:39)
--- NOTE | 2022-12-09 22:58 | P.PN ---
Subjective Progress Note Date: 12/09/22 Principal diagnosis: E. coli bacteremia Patient is a 77-year-old female with a past medical history significant for end-stage renal disease on hemodialysis through the right arm fistula, the patient also makes urine presented to the hospital with weakness has been diagnosed with an E. coli bacteremia CT of abdominal pelvis concerning for right-sided hydronephrosis from an obstructing stone, patient scheduled for cystoscopy and stent placement this afternoon On today's evaluation that is 12/09/2022, the patient remains to be afebrile, the patient is breathing comfortably on 2 L nasal cannula oxygen, the patient denies chest pain shortness of breath or cough, the patient denies having nausea no vomiting no abdominal pain, did have some diarrhea Objective - Vital Signs Vital signs: Vital Signs Temp 98.4 F 12/09/22 07:00 Pulse 74 12/09/22 07:00 Resp 18 12/09/22 07:00 BP 131/74 12/09/22 07:00 Pulse Ox 100 12/09/22 07:00 FiO2 Intake & Output 12/08/22 12/09/22 12/09/22 18:59 06:59 18:59 Intake Total 240 Balance 240 Weight 87.5 kg Intake: Oral 240 Other: Voiding Method Diaper Diaper # Voids 2 # Bowel Movements 2 1 - Exam GENERAL DESCRIPTION: An elderly female lying in bed in no distress RESPIRATORY SYSTEM: Unlabored breathing , decreased breath sounds at bases HEART: S1 S2 regular rate and rhythm , ABDOMEN: Soft , no tenderness EXTREMITIES: No edema feet - Labs CBC & Chem 7: 12/09/22 04:30 12/09/22 04:30 Labs: Abnormal Lab Results - Last 24 Hours (Table) 12/08/22 12/09/22 12/09/22 Range/Units 11:19 04:30 04:30 WBC 16.2 H (3.8-10.6) k/uL RBC 3.53 L (3.80-5.40) m/uL Hgb 10.6 L (11.4-16.0) gm/dL MCHC 30.9 L (31.0-37.0) g/dL RDW 16.9 H (11.5-15.5) % Plt Count 140 L (150-450) k/uL Neutrophils # (Manual) 13.10 H (1.3-7.7) k/uL Monocytes # (Manual) 1.30 H (0-1.0) k/uL Sodium 135 L (137-145) mmol/L Chloride 95 L (98-107) mmol/L BUN 46 H (7-17) mg/dL Creatinine 6.46 H (0.52-1.04) mg/dL POC Glucose (mg/dL) 172 H (70-110) mg/dL Calcium 7.9 L (8.4-10.2) mg/dL ALT 42 H (4-34) U/L Alkaline Phosphatase 178 H (38-126) U/L Total Protein 5.6 L (6.3-8.2) g/dL Albumin 2.9 L (3.5-5.0) g/dL Assessment and Plan (1) E coli bacteremia Current Visit: Yes Status: Acute Code(s): R78.81 - BACTEREMIA; B96.20 - UNSP ESCHERICHIA COLI THE CAUSE OF DISEASES [facility]SD [facility] SNOMED Code(s): 553443576902 Plan: 1patient with gram-negative bacteremia source is likely abdominal versus urinary as the patient did have evidence of lower abdominal tenderness could be related to diverticulitis versus pyelonephritis as the patient mentions still makes urine even though she is a dialysis dependent. 2 CT of abdominal pelvis with oral contrast has been suggestive of right-sided hydronephrosis and hydroureter likely the source of his bacteremia. Patient is status post cystoscopy and ureteral stent placement on 12/07/2021 3patient seemed to have some clinical improvement , patient did have a persistent elevated white count stool for C. diff is negative we will recheck blood cultures and inflammatory markers with a.m. lab Time with Patient: Less than 30
[2022-12-10 05:19] LABS: Glucose,Whole Blood 105 mg/dL (70-110)
[2022-12-10] MEDS: INSULIN ASPART (NovoLOG) 100 UNIT/ML VIAL SQ SCH ×3 (05:42→17:24)
[2022-12-10] MEDS: APIXABAN 2.5 MG TABLET PO SCH ×2 (08:34→23:35)
[2022-12-10] MEDS: FERROUS SULFATE 325 MG TAB PO SCH (08:34)
[2022-12-10] MEDS: ESCITALOPRAM 5 MG TAB PO SCH (08:34)
[2022-12-10] MEDS: CYANOCOBALAMIN 500 MCG TAB PO SCH (08:34)
[2022-12-10] MEDS: SEVELAMER 800 MG TAB PO SCH ×3 (08:35→23:36)
[2022-12-10] MEDS: THIAMINE 100 MG TAB PO SCH (08:35)
[2022-12-10] MEDS: MIDODRINE 5 MG TAB PO SCH (08:35)
[2022-12-10] MEDS: MECLIZINE 12.5 MG TAB PO SCH (08:35)
[2022-12-10] MEDS: LETROZOLE 2.5 MG TAB PO SCH (08:35)
[2022-12-10] MEDS: LIDOCAINE-PRILOCAINE 2.5-2.5% CREAM 5 GM TUBE TOPICAL SCH (08:35)
[2022-12-10] MEDS: PANTOPRAZOLE 40 MG TABLET PO SCH (08:35)
--- NOTE | 2022-12-10 11:18 | P.PN ---
Subjective Patient is seen in follow-up for end-stage renal disease. She is maintained on hemodialysis on Saturday schedule. On antibiotics for E. coli UTI and bacteremia. Underwent cystoscopy with right ureteral stent placement on 12/07/2022. Resting in bed. Denies chest pain or shortness of breath. Currently on room air. Tolerating dialysis well. Hemodynamic stable. Vital signs are stable. General: No acute distress. HEENT: Head exam is unremarkable. On his cannula. LUNGS: No audible rhonchi or wheezes. HEART: Rate and Rhythm are regular. ABDOMEN: No distention. Nontender. EXTREMITITES: No edema. Objective - Vital Signs Vital signs: Vital Signs Temp 98.0 F 12/10/22 07:25 Pulse 69 12/10/22 07:25 Resp 18 12/10/22 07:25 BP 132/67 12/10/22 07:25 Pulse Ox 90 L 12/10/22 07:25 FiO2 Intake & Output 12/09/22 12/10/22 12/10/22 18:59 06:59 18:59 Intake Total 480 50 Output Total 1 Balance 480 49 Weight 87.5 kg Intake: Oral 480 50 Output: Stool 1 Other: Voiding Method Diaper Diaper # Voids 0 # Bowel Movements 5 - Labs CBC & Chem 7: 12/09/22 04:30 12/09/22 04:30 Labs: Abnormal Lab Results - Last 24 Hours (Table) 12/09/22 12/09/22 12/09/22 Range/Units 11:29 16:22 20:55 POC Glucose (mg/dL) 177 H 149 H 217 H (70-110) mg/dL Assessment and Plan Plan: Assessment: 1. End-stage renal disease maintained on hemodialysis on Saturday schedule. 2. E. coli UTI and bacteremia on antibiotics. ID following. 3. Bilateral nephrolithiasis status post cystoscopy with right ureteral stent insertion on 12/07/2022. 4. Hypertension with chronic kidney disease. Stable. 5. Chronic kidney disease mineral bone disease maintained on Renvela. 6. Anemia of chronic kidney disease. On Aranesp. Plan: Currently seen while undergoing hemodialysis. Next treatment on Saturday. Encouraged oral intake. Check phosphorus level.
[2022-12-10 11:57] LABS: Glucose,Whole Blood 106 mg/dL (70-110)
[2022-12-10 12:25] VITALS: BMI 31.1
--- NOTE | 2022-12-10 12:29 | P.PN ---
Subjective Progress Note Date: 12/10/22 Principal diagnosis: IDC breast cancer on femara In f/u today pt is receiving dialysis, she is lethargic, drifts off to sleep during conversation. She denied any pain. Objective - Vital Signs Vital signs: Vital Signs Temp 98.0 F 12/10/22 07:25 Pulse 69 12/10/22 07:25 Resp 18 12/10/22 07:25 BP 132/67 12/10/22 07:25 Pulse Ox 90 L 12/10/22 07:25 FiO2 Intake & Output 12/09/22 12/10/22 12/10/22 18:59 06:59 18:59 Intake Total 480 50 Output Total 1 Balance 480 49 Weight 87.5 kg Intake: Oral 480 50 Output: Stool 1 Other: Voiding Method Diaper Diaper # Voids 0 # Bowel Movements 5 - Constitutional General appearance: Present: average body habitus, cooperative, no acute d istress - EENT Eyes: Present: anicteric sclerae, EOMI ENT: Present: hearing grossly normal - Respiratory Respiratory: bilateral: diminished - Cardiovascular Rhythm: regular Heart sounds: normal: S1, S2 Abnormal Heart Sounds: Absent: systolic murmur, diastolic murmur, rub, S3 Gallop, S4 Gallop, click, other - Peripheral edema leg Peripheral Edema: bilateral: Trace - Gastrointestinal General gastrointestinal: Present: normal bowel sounds - Integumentary Integumentary: Present: pale - Neurologic Neurologic: Present: CNII-XII intact (grossly) - Musculoskeletal Musculoskeletal: Present: generalized weakness - Psychiatric Psychiatric Comment(s): lethargic, falls asleep easily during conversation, she appropriate when awake and answering questions - Labs CBC & Chem 7: 12/09/22 04:30 12/09/22 04:30 Labs: Abnormal Lab Results - Last 24 Hours (Table) 12/09/22 12/09/22 Range/Units 16:22 20:55 POC Glucose (mg/dL) 149 H 217 H (70-110) mg/dL Assessment and Plan (1) Invasive ductal carcinoma of breast Current Visit: No Status: Chronic Priority: Medium Code(s): C50.919 - MALIGNANT NEOPLASM OF UNSP SITE OF UNSPECIFIED FEMALE BREAST SNOMED Code(s): 180421792 Plan: IDC breast cancer, maintained on femara -No evidence of metastatic/progressive disease. Pt is current on her f/u -Cont femara as prescribed -Will adjust pt appt with Dr. Adams and have him see her in 1 month. Will contact pt with date and time ESRD, nephrolithiasis -Follows with Nephrology, is on dialysis -Had rt ureter stent placed F/U as indicated by Specialists
[2022-12-10 14:44] LABS: HCT 34.1 % (37.2-46.3); HGB 10.2 g/dL (12.0-15.0); MCH 29.1 pg (27.0-32.0); MCHC 29.9 g/dL (32.0-37.0); MCV 97.4 fL (80.0-97.0); Mean Platelet Volume 12.2 fL (9.5-12.2); NRBC Per 100 WBC 0 /100 WBCS (0.0-0.0); Platelet Count 186 X 10*3/uL (140-440); RDW 17.3 % (11.5-14.5); WBC 14.72 X 10*3/uL (4.50-10.00)
[2022-12-10 14:55] LABS: C Reactive Protein 8.4 mg/dL (0.00-0.80)
[2022-12-10 16:06] LABS: African American GFR (CKD) 5.1 (60.0-200.0); Albumin 3.1 g/dL (3.8-4.9); Albumin/Globulin Ratio 1.14 (1.60-3.17); Anion Gap 15.3 mmol/L (10.00-18.00); BUN/Creat Ratio 6.84 Ratio (12.00-20.00); Blood Urea Nitrogen 54.6 mg/dL (9.0-27.0); Calcium 8.3 mg/dL (8.7-10.3); Carbon Dioxide 25.4 mmol/L (20.0-27.5); Globulin 2.7 g/dL (1.6-3.3); Non-African American GFR(CKD) 4.4 (60.0-200.0); Potassium 4.1 mmol/L (3.5-5.5); Total Bilirubin 0.4 mg/dL (0.30-1.20); Total Protein 5.8 g/dL (6.2-8.2)
--- NOTE | 2022-12-10 17:04 | P.PN ---
Progress Note - Text Progress Note Date: 12/10/22 Chief Complaint: Tired This is a pleasant 77-year-old patient, follows with Dr. Vladislav Long. She had been feeling weak for last 2 days. Is on hemodialysis Saturday and Saturday. For last 4 years. She missed dialysis the previous day because of not feeling well. In the ER feeling more short of breath. Presented from [facility]. Somewhat slow to answer questions in the ER. No obvious fever was documented. Patient also an appointment to see Dr. Granados for breast cancer. At baseline patient is fluid restricted 1200 mL a day. Ambulate with support. He needs assistance with activities. Eats independently. Blood culture drawn yesterday of come back positive. For gram-negative rods. Chronic stable medical conditions include diabetes, GERD, hyperlipidemia, hypertension, osteoarthritis, left breast cancer, peripheral neuropathy, diabetic retinopathy, does use a wheelchair. 12/06/2022: Blood cultures were positive for E. coli./Gram-negative bacilli. On IV ceftriaxone. Likely source renal with obstructing calculus in the lower right ureter with hydronephrosis. Right bilateral multiple renal calculi. Denies abdominal pain. Urology consulted. Decreased appetite. Next hemodialysis tomorrow 12/07/2022: Blood cultures remain positive for E. coli. Patient again delirious today. Pending intervention to the right KUB. Getting hemodialyzed today. IV ceftriaxone. 12/08/2022: Patient yesterday had right-sided double-J stent placed. Pus was noted. Delirium better today. Tired. Intake, 25%. IV ceftriaxone 12/09/2022: Rather tired. She ate a good breakfast. Repeat blood cultures ordered. We'll have the patient sit up at the edge of the bed for lunch. Discussed with nurse. 12/10/2022: Discussed with ID. White count coming down. Wishes to observe for at least 1 more day. No fever. Hemodialysis today. Eating some. Active Medications Acetaminophen (Acetaminophen Tab 325 Mg Tab) 650 mg PO MOWEFR PRN PRN Reason: DURING DIALYSIS Acetaminophen (Acetaminophen Tab 325 Mg Tab) 650 mg PO Q6H PRN PRN Reason: Pain or Fever > 100.5 Hydrocodone Bitart/Acetaminophen (Hydrocodone/Apap 5-325mg 1 Each Tab) 1 each PO Q4HR PRN PRN Reason: Moderate Pain (Scale 4 to 6) Last Admin: 12/08/22 20:41 Dose: 1 each Apixaban (Apixaban 2.5 Mg Tablet) 2.5 mg PO BID [facility]; Protocol Last Admin: 12/10/22 08:34 Dose: 2.5 mg Atenolol (Atenolol 25 Mg Tab) 12.5 mg PO DAILY PRN PRN Reason: hold for SBP <100 or HR <60 Atorvastatin Calcium (Atorvastatin 80 Mg Tab) 80 mg PO HS [facility] Last Admin: 12/09/22 21:39 Dose: 80 mg Clonidine (Clonidine Hcl 0.1 Mg Tab) 0.1 mg PO DAILY PRN PRN Reason: SBP >160 Cyanocobalamin (Cyanocobalamin 500 Mcg Tab) 1,000 mcg PO DAILY [facility] Last Admin: 12/10/22 08:34 Dose: 1,000 mcg Darbepoetin Bryant (Darbepoetin Bryant 40 Mcg/0.4 Ml Syringe) 40 mcg SQ Q7D [facility] Last Admin: 12/08/22 12:28 Dose: 40 mcg Ergocalciferol (Ergocalciferol 1,250 Mcg (50,000 Iu) Capsule) 1,250 mcg PO Fr@0900 [facility] Last Admin: 12/07/22 09:12 Dose: Not Given Escitalopram Oxalate (Escitalopram 5 Mg Tab) 5 mg PO DAILY [facility] Last Admin: 12/10/22 08:34 Dose: 5 mg Ferrous Sulfate (Ferrous Sulfate 325 Mg Tab) 325 mg PO DAILY [facility] Last Admin: 12/10/22 08:34 Dose: 325 mg Hydrocortisone (Hydrocortisone 2.5% Rectal Cream 30 Gm Tube) 1 applic RECTAL Q8H PRN PRN Reason: Hemorrhoids Ceftriaxone Sodium 2 gm/ (Sodium Chloride) 50 mls @ 100 mls/hr IVPB Q24HR [facility]; Protocol Last Admin: 12/10/22 08:34 Dose: 100 mls/hr Insulin Aspart (Insulin Aspart (Novolog) 100 Unit/Ml Vial) 0 unit SQ AC-TID [facility]; Protocol Last Admin: 12/10/22 12:06 Dose: Not Given Letrozole (Letrozole 2.5 Mg Tab) 2.5 mg PO DAILY [facility] Last Admin: 12/10/22 08:35 Dose: 2.5 mg Lidocaine/Prilocaine (Lidocaine-Prilocaine 2.5-2.5% Cream 5 Gm Tube) 1 applic TOPICAL MoWeFr@0900 [facility]; Protocol Last Admin: 12/10/22 08:35 Dose: 1 applic Loperamide HCl (Loperamide 2 Mg Cap) 2 mg PO QID PRN PRN Reason: Diarrhea Loratadine (Loratadine 10 Mg Tab) 10 mg PO DAILY PRN PRN Reason: Allergy Symptoms Meclizine HCl (Meclizine 12.5 Mg Tab) 12.5 mg PO DAILY [facility] Last Admin: 12/10/22 08:35 Dose: 12.5 mg Midodrine (Midodrine 5 Mg Tab) 5 mg PO MoWeFr@0900 [facility] Last Admin: 12/10/22 08:35 Dose: 5 mg Naloxone HCl (Naloxone 0.4 Mg/Ml 1 Ml Vial) 0.2 mg IV Q2M PRN PRN Reason: Opioid Reversal Ondansetron HCl (Ondansetron 4 Mg Tab) 4 mg PO Q6H PRN PRN Reason: Nausea Pantoprazole Sodium (Pantoprazole 40 Mg Tablet) 40 mg PO DAILY [facility] Last Admin: 12/10/22 08:35 Dose: 40 mg Sevelamer Carbonate (Sevelamer 800 Mg Tab) 1,600 mg PO TID [facility] Last Admin: 12/10/22 15:38 Dose: 1,600 mg Simethicone (Simethicone 80 Mg Chewable) 120 mg PO Q8H PRN PRN Reason: Indigestion Thiamine HCl (Thiamine 100 Mg Tab) 100 mg PO DAILY [facility] Last Admin: 12/10/22 08:35 Dose: 100 mg Past medical history to include: CHF, diabetes, GERD, hypertension, hyperlipidemia, osteoarthritis, left breast cancer being followed by Dr. Granados, peripheral neuropathy, diabetic retinopathy, left breast lumpectomy Social history: Currently at [facility]. No smoking. No alcohol. Physical examination: VITAL SIGNS: 98.2, 75, 18, 140/62, 90% room air GENERAL: Reclining, tired EYES: Pupils equal. Conjunctiva normal. HEENT: External appearance of nose and ears normal, oral cavity grossly normal. NECK: JVD not raised; masses not palpable. HEART: First and second heart sounds are normal; no edema. LUNGS: Respiratory rate normal; clear to auscultation. ABDOMEN: Soft, nontender, liver spleen not palpable, no masses palpable. PSYCH: Answering questions appropriately, tired MUSCULOSKELETAL:No Clubbing/cyanosis;muscles-grossly intact. OA INVESTIGATIONS, reviewed in the clinical context: December 10: White count 14.70 globin 10.2 creatinine 8 CRP 8.4 December 09: White count 16.2 hemoglobin 10.6 platelets 140 potassium 4.2 BUN 46 creatinine 6.46 December 07: White count 16.1 hemoglobin 10 platelets 115 potassium 4.4 BUN 69 creatinine 7.36 White count 7 hemoglobin 12 platelets 108 sodium 129 potassium 5.1 BUN 19 creatinine 9.79 Troponin I 0.143 EKG tracing personally reviewed by me-sinus tachycardia Chest x-ray film personally reviewed by me-small pleural effusion. Blood culture [12/04/2022]: E. coli Urine culture [December 04]: E. coli Assessment and plan: -Sepsis with positive blood cultures /E. coli. Secondary to obstructive pyelonephritis.: Improving IV ceftriaxone -Right hydronephrosis, right hydroureter from a distal ureteral stone. Acute pyelonephritis.: IV ceftriaxone. December 07: Cystoscopy with right retrograde pyelogram and stent placement was done. Infected urine was visualized. -Bilateral renal calculi -End-stage kidney disease on hemodialysis Saturday. Nephrology following -Acute delirium on presentation from sepsis: Some improvement -Chronic medical debility, she uses a wheelchair. -Hyperlipidemia Lipitor 80 mg daily at bedtime -Depression Lexapro 5 mg -Invasive ductal carcinoma of the breast. left partial mastectomy. Patient is to follow up with Dr. Granados. On femara -GERD Omeprazole -Metabolic bone disease secondary to chronic kidney disease Renvela -Diabetic retinopathy -DO NOT RESUSCITATE IV ceftriaxone. Dialysis today.. Discussed with ID. Continue current treatment plan.
[2022-12-10 17:07] LABS: Basophils # (A) 0.07 X 10*3/uL (0.00-0.10); Basophils % (A) 0.5 %; Eosinophils # (A) 0.48 X 10*3/uL (0.04-0.35); Eosinophils % (A) 3.3 %; Immature Grans, Automated 2.4 %; Lymphocytes # (A) 1.92 X 10*3/uL (0.90-5.00); Monocytes # (A) 0.77 X 10*3/uL (0.20-1.00); Monocytes % (A) 5.2 %; Neutrophils # (A) 11.12 X 10*3/uL (1.80-7.70); Neutrophils % (A) 75.6 %
[2022-12-10 17:21] LABS: Glucose,Whole Blood 200 mg/dL (70-110)
[2022-12-10 22:13] LABS: Glucose,Whole Blood 114 mg/dL (70-110)
[2022-12-10] MEDS: ATORVASTATIN 80 MG TAB PO SCH (23:35)
[2022-12-10] MEDS: metroNIDAZOLE 500 MG TAB PO SCH (23:36)
--- NOTE | 2022-12-10 23:47 | P.PN ---
Subjective Progress Note Date: 12/10/22 Principal diagnosis: E. coli bacteremia Patient is a 77-year-old female with a past medical history significant for end-stage renal disease on hemodialysis through the right arm fistula, the patient also makes urine presented to the hospital with weakness has been diagnosed with an E. coli bacteremia CT of abdominal pelvis concerning for right-sided hydronephrosis from an obstructing stone, patient scheduled for cystoscopy and stent placement this afternoon On today's evaluation that is 12/10/2022, the patient continues to be afebrile, the patient is breathing comfortably on room air, the patient denies chest pain shortness of breath or cough, the patient denies having nausea no vomiting no abdominal pain, no new symptoms Objective - Vital Signs Vital signs: Vital Signs Temp 98.0 F 12/10/22 07:25 Pulse 69 12/10/22 07:25 Resp 18 12/10/22 07:25 BP 132/67 12/10/22 07:25 Pulse Ox 90 L 12/10/22 07:25 FiO2 Intake & Output 12/09/22 12/10/22 12/10/22 18:59 06:59 18:59 Intake Total 480 50 Output Total 1 Balance 480 49 Weight 87.5 kg Intake: Oral 480 50 Output: Stool 1 Other: Voiding Method Diaper Diaper # Voids 0 # Bowel Movements 5 - Exam GENERAL DESCRIPTION: An elderly female lying in bed in no distress RESPIRATORY SYSTEM: Unlabored breathing , decreased breath sounds at bases HEART: S1 S2 regular rate and rhythm , ABDOMEN: Soft , no tenderness EXTREMITIES: No edema feet - Labs CBC & Chem 7: 12/10/22 07:36 12/10/22 07:36 Labs: Abnormal Lab Results - Last 24 Hours (Table) 12/09/22 12/09/22 Range/Units 16:22 20:55 POC Glucose (mg/dL) 149 H 217 H (70-110) mg/dL Assessment and Plan (1) E coli bacteremia Current Visit: Yes Status: Acute Code(s): R78.81 - BACTEREMIA; B96.20 - UNSP ESCHERICHIA COLI THE CAUSE OF DISEASES [facility]SD [facility] SNOMED Code(s): 147943553892 Plan: 1patient with gram-negative bacteremia source is likely abdominal versus urinary as the patient did have evidence of lower abdominal tenderness could be related to diverticulitis versus pyelonephritis as the patient mentions still makes urine even though she is a dialysis dependent. 2 CT of abdominal pelvis with oral contrast has been suggestive of right-sided hydronephrosis and hydroureter likely the source of his bacteremia. Patient is status post cystoscopy and ureteral stent placement on 12/07/2021 3patient seemed to have some clinical improvement , patient did have a persistent elevated white count, CBC from this morning is currently pending hence we will continue the patient on Rocephin for another 24 hour this was discussed with the admitting physician Time with Patient: Less than 30
[2022-12-11 06:11] LABS: Glucose,Whole Blood 257 mg/dL (70-110)
[2022-12-11] MEDS: INSULIN ASPART (NovoLOG) 100 UNIT/ML VIAL SQ SCH ×2 (06:58→13:04)
[2022-12-11 08:53] VITALS: BP 143/59; PULSE 80; RESP 18; TEMP 97.9
[2022-12-11] MEDS: MECLIZINE 12.5 MG TAB PO SCH (10:01)
[2022-12-11] MEDS: FERROUS SULFATE 325 MG TAB PO SCH (10:01)
[2022-12-11] MEDS: metroNIDAZOLE 500 MG TAB PO SCH (10:01)
[2022-12-11] MEDS: CYANOCOBALAMIN 500 MCG TAB PO SCH (10:01)
[2022-12-11] MEDS: SEVELAMER 800 MG TAB PO SCH (10:01)
[2022-12-11] MEDS: APIXABAN 2.5 MG TABLET PO SCH (10:01)
[2022-12-11] MEDS: THIAMINE 100 MG TAB PO SCH (10:01)
[2022-12-11] MEDS: PANTOPRAZOLE 40 MG TABLET PO SCH (10:01)
[2022-12-11] MEDS: ESCITALOPRAM 5 MG TAB PO SCH (10:01)
[2022-12-11] MEDS: LETROZOLE 2.5 MG TAB PO SCH (10:20)
--- NOTE | 2022-12-11 10:54 | P.PN ---
Subjective Patient is seen in follow-up for end-stage renal disease. She is maintained on hemodialysis on Saturday schedule. On antibiotics for E. coli UTI and bacteremia. Underwent cystoscopy with right ureteral stent placement on 12/07/2022. Resting in bed. Denies chest pain or shortness of breath. Currently on room air. No problems with dialysis yesterday. Hemodynamic stable. Vital signs are stable. General: No acute distress. HEENT: Head exam is unremarkable. On his cannula. LUNGS: No audible rhonchi or wheezes. HEART: Rate and Rhythm are regular. ABDOMEN: No distention. Nontender. EXTREMITITES: No edema. Objective - Vital Signs Vital signs: Vital Signs Temp 97.9 F 12/11/22 08:00 Pulse 80 12/11/22 08:00 Resp 18 12/11/22 08:00 BP 143/59 12/11/22 08:00 Pulse Ox 96 12/11/22 08:00 FiO2 Intake & Output 12/10/22 12/11/22 12/11/22 18:59 06:59 18:59 Intake Total 400 Output Total 2500 1 Balance -2100 -1 Weight 87.5 kg 87.6 kg Intake: Hemodialysis 400 Output: Stool 1 Hemodialysis 2500 Other: Voiding Method Diaper # Voids 1 3 # Bowel Movements 1 2 1 - Labs CBC & Chem 7: 12/10/22 07:36 12/10/22 07:36 Labs: Abnormal Lab Results - Last 24 Hours (Table) 12/10/22 12/10/22 12/10/22 Range/Units 07:36 07:36 17:13 WBC 14.72 H (4.50-10.00) X 10*3/uL RBC 3.50 L (4.10-5.20) X 10*6/uL Hgb 10.2 L (12.0-15.0) g/dL Hct 34.1 L (37.2-46.3) % MCV 97.4 H (80.0-97.0) fL MCHC 29.9 L (32.0-37.0) g/dL RDW 17.3 H (11.5-14.5) % Immature Gran # 0.36 H (0.00-0.04) X 10*3/uL Neutrophils # 11.12 H (1.80-7.70) X 10*3/uL Eosinophils # 0.48 H (0.04-0.35) X 10*3/uL BUN 54.6 H (9.0-27.0) mg/dL Creatinine 8.0 H* (0.6-1.5) mg/dL Est GFR (CKD-EPI)AfAm 5.1 L (60.0-200.0) Est GFR (CKD-EPI)NonAf 4.4 L (60.0-200.0) BUN/Creatinine Ratio 6.84 L (12.00-20.00) Ratio POC Glucose (mg/dL) 200 H (70-110) mg/dL Calcium 8.3 L (8.7-10.3) mg/dL Alkaline Phosphatase 185 H (41-126) U/L C-Reactive Protein 8.40 H (0.00-0.80) mg/dL Total Protein 5.8 L (6.2-8.2) g/dL Albumin 3.1 L (3.8-4.9) g/dL Albumin/Globulin Ratio 1.14 L (1.60-3.17) g/dL 12/10/22 12/11/22 Range/Units 22:11 06:09 WBC (4.50-10.00) X 10*3/uL RBC (4.10-5.20) X 10*6/uL Hgb (12.0-15.0) g/dL Hct (37.2-46.3) % MCV (80.0-97.0) fL MCHC (32.0-37.0) g/dL RDW (11.5-14.5) % Immature Gran # (0.00-0.04) X 10*3/uL Neutrophils # (1.80-7.70) X 10*3/uL Eosinophils # (0.04-0.35) X 10*3/uL BUN (9.0-27.0) mg/dL Creatinine (0.6-1.5) mg/dL Est GFR (CKD-EPI)AfAm (60.0-200.0) Est GFR (CKD-EPI)NonAf (60.0-200.0) BUN/Creatinine Ratio (12.00-20.00) Ratio POC Glucose (mg/dL) 114 H 257 H (70-110) mg/dL Calcium (8.7-10.3) mg/dL Alkaline Phosphatase (41-126) U/L C-Reactive Protein (0.00-0.80) mg/dL Total Protein (6.2-8.2) g/dL Albumin (3.8-4.9) g/dL Albumin/Globulin Ratio (1.60-3.17) g/dL Microbiology - Last 24 Hours (Table) 12/10/22 07:36 Blood Culture - Preliminary Blood No Growth after 24 hours Assessment and Plan Plan: Assessment: 1. End-stage renal disease maintained on hemodialysis on Saturday schedule. 2. E. coli UTI and bacteremia on antibiotics. ID following. 3. Bilateral nephrolithiasis status post cystoscopy with right ureteral stent insertion on 12/07/2022. 4. Hypertension with chronic kidney disease. Stable. 5. Chronic kidney disease mineral bone disease maintained on Renvela. 6. Anemia of chronic kidney disease. On Aranesp. Plan: Hemodialysis tomorrow. Encouraged oral intake. Phosphorus level 3.4 this admission.
[2022-12-11 10:55] LABS: Basophils # (A) 0.07 X 10*3/uL (0.00-0.10); Basophils % (A) 0.5 %; Eosinophils # (A) 0.41 X 10*3/uL (0.04-0.35); HCT 33.5 % (37.2-46.3); HGB 10.2 g/dL (12.0-15.0); Immature Grans, Automated 2.2 %; Lymphocytes # (A) 1.78 X 10*3/uL (0.90-5.00); MCH 29.3 pg (27.0-32.0); MCHC 30.4 g/dL (32.0-37.0); MCV 96.3 fL (80.0-97.0); Mean Platelet Volume 11.2 fL (9.5-12.2); Monocytes # (A) 0.96 X 10*3/uL (0.20-1.00); NRBC Per 100 WBC 0 /100 WBCS (0.0-0.0); Neutrophils # (A) 10.21 X 10*3/uL (1.80-7.70); Neutrophils % (A) 74.3 %; Platelet Count 176 X 10*3/uL (140-440); RBC 3.48 X 10*6/uL (4.10-5.20); RDW 17.2 % (11.5-14.5); WBC 13.73 X 10*3/uL (4.50-10.00)
[2022-12-11 11:28] LABS: Glucose,Whole Blood 140 mg/dL (70-110)
--- NOTE | 2022-12-11 12:43 | P.DS ---
Providers Date of admission: 12/04/22 22:41 Expected date of discharge: 12/11/22 Attending physician: Jim Ram Consults: 12/04/22 22:39 Consult Physician Urgent Consulting Provider: Michelle Bridges Consult Reason/Comments: AMS, on hemodialysis M,W,F Do you want consulting provider notified?: Yes 12/05/22 13:41 Consult Physician Routine Consulting Provider: Liat Adams Consult Reason/Comments: Breast cancer Do you want consulting provider notified?: Yes 12/05/22 13:47 Consult Physician Routine Consulting Provider: Mariella Berman Consult Reason/Comments: Sepsis with positive blood cultures Do you want consulting provider notified?: Yes 12/06/22 09:29 Consult Physician Routine Consulting Provider: Brandon Barfield Consult Reason/Comments: Obstructing nephrolitiasis, sepsis Do you want consulting provider notified?: Yes Primary care physician: Vladislav Long [facility] Course: Chief Complaint: Tired This is a pleasant 77-year-old patient, follows with Dr. Vladislav Long. She had been feeling weak for last 2 days. Is on hemodialysis Saturday and Saturday. For last 4 years. She missed dialysis the previous day because of not feeling well. In the ER feeling more short of breath. Presented from [facility]. Somewhat slow to answer questions in the ER. No obvious fever was documented. Patient also an appointment to see Dr. Granados for breast cancer. At baseline patient is fluid restricted 1200 mL a day. Ambulate with support. He needs assistance with activities. Eats independently. Blood culture drawn yesterday of come back positive. For gram-negative rods. Chronic stable medical conditions include diabetes, GERD, hyperlipidemia, hypertension, osteoarthritis, left breast cancer, peripheral neuropathy, diabetic retinopathy, does use a wheelchair. 12/06/2022: Blood cultures were positive for E. coli./Gram-negative bacilli. On IV ceftriaxone. Likely source renal with obstructing calculus in the lower right ureter with hydronephrosis. Right bilateral multiple renal calculi. Denies abdominal pain. Urology consulted. Decreased appetite. Next hemodialysis tomorrow 12/07/2022: Blood cultures remain positive for E. coli. Patient again delirious today. Pending intervention to the right KUB. Getting hemodialyzed today. IV ceftriaxone. 12/08/2022: Patient yesterday had right-sided double-J stent placed. Pus was noted. Delirium better today. Tired. Intake, 25%. IV ceftriaxone 12/09/2022: Rather tired. She ate a good breakfast. Repeat blood cultures ordered. We'll have the patient sit up at the edge of the bed for lunch. Discussed with nurse. 12/10/2022: Discussed with ID. White count coming down. Wishes to observe for at least 1 more day. No fever. Hemodialysis today. Eating some. 12/11/2022: Up in a chair. Awake. Not much of an appetite. Eating some with coaxing. Does like ensure. PR 2 [facility]. Discussed with ID. intermediate manager. Will receive 14 days of Ceftin. Orally Discussion and discharge planning more than 35 minutes Past medical history to include: CHF, diabetes, GERD, hypertension, hyperlipidemia, osteoarthritis, left breast cancer being followed by Dr. Granados, peripheral neuropathy, diabetic retinopathy, left breast lumpectomy Social history: Currently at [facility]. No smoking. No alcohol. Physical examination: VITAL SIGNS: 97 9, 80, 18, 143 with 59, 96% room air GENERAL: Sitting up in a recliner EYES: Pupils equal. Conjunctiva normal. HEENT: External appearance of nose and ears normal, oral cavity grossly normal. NECK: JVD not raised; masses not palpable. HEART: First and second heart sounds are normal; no edema. LUNGS: Respiratory rate normal; clear to auscultation. ABDOMEN: Soft, nontender, liver spleen not palpable, no masses palpable. PSYCH: Answering questions appropriately, tired MUSCULOSKELETAL:No Clubbing/cyanosis;muscles-grossly intact. OA INVESTIGATIONS, reviewed in the clinical context: December 11: White count 13.7 hemoglobin 10.2 December 07: White count 16.1 hemoglobin 10 platelets 115 potassium 4.4 BUN 69 creatinine 7.36 White count 7 hemoglobin 12 platelets 108 sodium 129 potassium 5.1 BUN 19 creatinine 9.79 Troponin I 0.143 EKG tracing personally reviewed by me-sinus tachycardia Chest x-ray film personally reviewed by me-small pleural effusion. Blood culture [12/04/2022]: E. coli Urine culture [December 04]: E. coli Assessment and plan: -Sepsis with positive blood cultures /E. coli. Secondary to obstructive pyelonephritis.: Improving IV ceftriaxone. -Right hydronephrosis, right hydroureter from a distal ureteral stone. Acute pyelonephritis.: IV ceftriaxone. December 07: Cystoscopy with right retrograde pyelogram and stent placement was done. Infected urine was visualized. Complete Ceftin 250 mg twice a day for 14 days -Bilateral renal calculi -End-stage kidney disease on hemodialysis Saturday. Nephrology following -Acute delirium on presentation from sepsis: improvement -Chronic medical debility, she uses a wheelchair. -Hyperlipidemia Lipitor 80 mg daily at bedtime -Depression Lexapro 5 mg -Invasive ductal carcinoma of the breast. left partial mastectomy. Patient is to follow up with Dr. Granados. On femara -GERD Omeprazole -Metabolic bone disease secondary to chronic kidney disease Renvela -Diabetic retinopathy -DO NOT RESUSCITATE Disposition: [facility] Plan - Discharge Summary Discharge Rx Participant: Yes New Discharge Prescriptions: New Cefuroxime [Ceftin] 250 mg PO BID #28 tab Continue Letrozole [Femara] 2.5 mg PO DAILY Acetaminophen Tab [Tylenol] 650 mg PO Q6H PRN PRN Reason: Pain Or Fever > 100.5 Simethicone [Gas-X] 125 mg PO Q8H PRN PRN Reason: Indigestion Sevelamer [Renvela] 1,600 mg PO TID Midodrine [ProAmatine] 5 mg PO MOWEFR Lidocaine-Prilocaine Cream [Emla Cream 2.5%/2.5%] 1 applic TOPICAL MOWEFR Acetaminophen [Tylenol] 650 mg PO MOWEFR PRN PRN Reason: DURING DIALYSIS Apixaban [Eliquis] 2.5 mg PO BID Thiamine [Vitamin B-1] 100 mg PO DAILY Ondansetron [Zofran] 4 mg PO Q6H PRN PRN Reason: Nausea Loperamide [Imodium] 2 mg PO QID PRN MDD 8 MG PRN Reason: Diarrhea Escitalopram [Lexapro] 5 mg PO DAILY Cyanocobalamin (Vitamin B-12) [Vitamin B-12] 1,000 mcg PO DAILY atenoloL [Tenormin] 12.5 mg PO DAILY PRN PRN Reason: hold for SBP <100 or HR <60 Omeprazole 20 mg PO DAILY Ferrous Sulfate [Iron (65 MG Elemental)] 325 mg PO DAILY Ergocalciferol (Vitamin D2) [Drisdol (50,000 Iu)] 1,250 mcg PO FR Dialyvite 1 tab PO DAILY Cranberry Fruit [Cranberry] 465 mg PO DAILY cloNIDine HCL [Catapres] 0.1 mg PO DAILY PRN PRN Reason: SBP >160 Atorvastatin [Lipitor] 80 mg PO HS Hydrocortisone [Anusol-Hc] 1 applic RECTAL Q8H PRN PRN Reason: Hemorrhoids Discontinued Meclizine [Antivert] 12.5 mg PO DAILY Loratadine [Claritin] 10 mg PO DAILY PRN PRN Reason: Allergy Symptoms Discharge Medication List Letrozole [Femara] 2.5 mg PO DAILY 07/31/18 [History] Acetaminophen Tab [Tylenol] 650 mg PO Q6H PRN 08/13/18 [History] Acetaminophen [Tylenol] 650 mg PO MOWEFR PRN 06/19/20 [History] Lidocaine-Prilocaine Cream [Emla Cream 2.5%/2.5%] 1 applic TOPICAL MOWEFR 06/19/20 [History] Midodrine [ProAmatine] 5 mg PO MOWEFR 06/19/20 [History] Sevelamer [Renvela] 1,600 mg PO TID 06/19/20 [History] Simethicone [Gas-X] 125 mg PO Q8H PRN 06/19/20 [History] Apixaban [Eliquis] 2.5 mg PO BID 07/01/20 [History] Atorvastatin [Lipitor] 80 mg PO HS 12/04/22 [History] Cranberry Fruit [Cranberry] 465 mg PO DAILY 12/04/22 [History] Cyanocobalamin (Vitamin B-12) [Vitamin B-12] 1,000 mcg PO DAILY 12/04/22 [History] Dialyvite 1 tab PO DAILY 12/04/22 [History] Ergocalciferol (Vitamin D2) [Drisdol (50,000 Iu)] 1,250 mcg PO FR 12/04/22 [History] Escitalopram [Lexapro] 5 mg PO DAILY 12/04/22 [History] Ferrous Sulfate [Iron (65 MG Elemental)] 325 mg PO DAILY 12/04/22 [History] Hydrocortisone [Anusol-Hc] 1 applic RECTAL Q8H PRN 12/04/22 [History] Loperamide [Imodium] 2 mg PO QID PRN MDD 8 MG 12/04/22 [History] Omeprazole 20 mg PO DAILY 12/04/22 [History] Ondansetron [Zofran] 4 mg PO Q6H PRN 12/04/22 [History] Thiamine [Vitamin B-1] 100 mg PO DAILY 12/04/22 [History] atenoloL [Tenormin] 12.5 mg PO DAILY PRN 12/04/22 [History] cloNIDine HCL [Catapres] 0.1 mg PO DAILY PRN 12/04/22 [History] Cefuroxime [Ceftin] 250 mg PO BID #28 tab 12/11/22 [Rx] Follow up Appointment(s)/Referral(s): Vladislav Long MD [Primary Care Provider] - 1-2 days Carlos Adams MD [STAFF PHYSICIAN] - 01/02/23 11:15 am [facility], [NON-STAFF] - As Needed Activity/Diet/Wound Care/Special Instructions: antibiotics per dr berman
--- NOTE | 2022-12-12 14:25 | P.PN ---
Subjective Progress Note Date: 12/11/22 Principal diagnosis: E. coli bacteremia Patient is a 77-year-old female with a past medical history significant for end-stage renal disease on hemodialysis through the right arm fistula, the patient also makes urine presented to the hospital with weakness has been diagnosed with an E. coli bacteremia CT of abdominal pelvis concerning for right-sided hydronephrosis from an obstructing stone, patient scheduled for cystoscopy and stent placement this afternoon On today's evaluation that is 12/11/2022, the patient remains to be afebrile, the patient is breathing comfortably on room air, the patient denies chest pain shortness of breath or cough, the patient denies having nausea no vomiting and abdominal pain has improved and no diarrhea has been reported Objective - Vital Signs Vital signs: Vital Signs Temp 97.9 F 12/11/22 08:00 Pulse 80 12/11/22 08:00 Resp 18 12/11/22 08:00 BP 143/59 12/11/22 08:00 Pulse Ox 96 12/11/22 08:00 FiO2 Intake & Output 12/10/22 12/11/22 12/11/22 18:59 06:59 18:59 Intake Total 400 Output Total 2500 1 Balance -2100 -1 Weight 87.5 kg 87.6 kg Intake: Hemodialysis 400 Output: Stool 1 Hemodialysis 2500 Other: Voiding Method Diaper # Voids 1 3 # Bowel Movements 1 2 1 - Exam GENERAL DESCRIPTION: An elderly female lying in bed in no distress RESPIRATORY SYSTEM: Unlabored breathing , decreased breath sounds at bases HEART: S1 S2 regular rate and rhythm , ABDOMEN: Soft , no tenderness EXTREMITIES: No edema feet - Labs CBC & Chem 7: 12/11/22 06:15 12/10/22 07:36 Labs: Abnormal Lab Results - Last 24 Hours (Table) 12/10/22 12/10/22 12/10/22 Range/Units 07:36 07:36 17:13 WBC 14.72 H (4.50-10.00) X 10*3/uL RBC 3.50 L (4.10-5.20) X 10*6/uL Hgb 10.2 L (12.0-15.0) g/dL Hct 34.1 L (37.2-46.3) % MCV 97.4 H (80.0-97.0) fL MCHC 29.9 L (32.0-37.0) g/dL RDW 17.3 H (11.5-14.5) % Immature Gran # 0.36 H (0.00-0.04) X 10*3/uL Neutrophils # 11.12 H (1.80-7.70) X 10*3/uL Eosinophils # 0.48 H (0.04-0.35) X 10*3/uL BUN 54.6 H (9.0-27.0) mg/dL Creatinine 8.0 H* (0.6-1.5) mg/dL Est GFR (CKD-EPI)AfAm 5.1 L (60.0-200.0) Est GFR (CKD-EPI)NonAf 4.4 L (60.0-200.0) BUN/Creatinine Ratio 6.84 L (12.00-20.00) Ratio POC Glucose (mg/dL) 200 H (70-110) mg/dL Calcium 8.3 L (8.7-10.3) mg/dL Alkaline Phosphatase 185 H (41-126) U/L C-Reactive Protein 8.40 H (0.00-0.80) mg/dL Total Protein 5.8 L (6.2-8.2) g/dL Albumin 3.1 L (3.8-4.9) g/dL Albumin/Globulin Ratio 1.14 L (1.60-3.17) g/dL 12/10/22 12/11/22 Range/Units 22:11 06:09 WBC (4.50-10.00) X 10*3/uL RBC (4.10-5.20) X 10*6/uL Hgb (12.0-15.0) g/dL Hct (37.2-46.3) % MCV (80.0-97.0) fL MCHC (32.0-37.0) g/dL RDW (11.5-14.5) % Immature Gran # (0.00-0.04) X 10*3/uL Neutrophils # (1.80-7.70) X 10*3/uL Eosinophils # (0.04-0.35) X 10*3/uL BUN (9.0-27.0) mg/dL Creatinine (0.6-1.5) mg/dL Est GFR (CKD-EPI)AfAm (60.0-200.0) Est GFR (CKD-EPI)NonAf (60.0-200.0) BUN/Creatinine Ratio (12.00-20.00) Ratio POC Glucose (mg/dL) 114 H 257 H (70-110) mg/dL Calcium (8.7-10.3) mg/dL Alkaline Phosphatase (41-126) U/L C-Reactive Protein (0.00-0.80) mg/dL Total Protein (6.2-8.2) g/dL Albumin (3.8-4.9) g/dL Albumin/Globulin Ratio (1.60-3.17) g/dL Microbiology - Last 24 Hours (Table) 12/10/22 07:36 Blood Culture - Preliminary Blood No Growth after 24 hours Assessment and Plan (1) E coli bacteremia Status: Acute Code(s): R78.81 - BACTEREMIA; B96.20 - UNSP ESCHERICHIA COLI THE CA[facility] DISEASES [facility] Code(s): 089402165659 Plan: 1patient with gram-negative bacteremia source is likely abdominal versus urinary as the patient did have evidence of lower abdominal tenderness could be related to diverticulitis versus pyelonephritis as the patient mentions still makes urine even though she is a dialysis dependent. 2 CT of abdominal pelvis with oral contrast has been suggestive of right-sided hydronephrosis and hydroureter likely the source of his bacteremia. Patient is status post cystoscopy and ureteral stent placement on 12/07/2021 3patient seemed to have shown clinical improvement , and the white count is trending down to 13,000 today, the patient will finish therapy with oral Ceftin and close outpatient follow-up
== END 2022-12-11 14:22 | DRG 853 ==
LOC: EC 19:41 → 4SSUR 22:41
PROVIDERS: ADMIT Hospitalist; ATTEND Hospitalist
PROC: 5A1D70Z Performance of Urinary Filtration, Intermittent, Less than 6 Hours Per Day (ICD-10-PCS; 2022-12-05)
PROC: 3E033XZ Introduction of Vasopressor into Peripheral Vein, Percutaneous Approach (ICD-10-PCS; 2022-12-05)
PROC: BT1D1ZZ Fluoroscopy of Right Kidney, Ureter and Bladder using Low Osmolar Contrast (ICD-10-PCS; principal; 2022-12-07 07:30)
PROC: 0T768DZ Dilation of Right Ureter with Intraluminal Device, Via Natural or Artificial Opening Endoscopic (ICD-10-PCS; principal; 2022-12-07 07:30)
DX: A41.51 Sepsis due to Escherichia coli [E. coli] (principal); N18.6 End stage renal disease; N10 Acute pyelonephritis; N13.6 Pyonephrosis; I13.2 Hypertensive heart and chronic kidney disease with heart failure and with stage 5 chronic kidney disease, or end stage renal disease; Z66 Do not resuscitate; R41.0 Disorientation, unspecified; R53.81 Other malaise; E78.5 Hyperlipidemia, unspecified; F32.A Depression, unspecified; M89.8X9 Other specified disorders of bone, unspecified site; E11.319 Type 2 diabetes mellitus with unspecified diabetic retinopathy without macular edema; M19.90 Unspecified osteoarthritis, unspecified site; I95.9 Hypotension, unspecified; C50.912 Malignant neoplasm of unspecified site of left female breast; K64.9 Unspecified hemorrhoids; K21.9 Gastro-esophageal reflux disease without esophagitis; E11.42 Type 2 diabetes mellitus with diabetic polyneuropathy; I50.9 Heart failure, unspecified; Z20.822 Contact with and (suspected) exposure to COVID-19; E11.22 Type 2 diabetes mellitus with diabetic chronic kidney disease; D63.1 Anemia in chronic kidney disease; Z99.2 Dependence on renal dialysis; Z90.12 Acquired absence of left breast and nipple; Z87.891 Personal history of nicotine dependence; Z79.899 Other long term (current) drug therapy; Z79.811 Long term (current) use of aromatase inhibitors; Z79.01 Long term (current) use of anticoagulants; Z99.3 Dependence on wheelchair; Z88.0 Allergy status to penicillin; Z71.3 Dietary counseling and surveillance
CPT/HCPCS: 36415; 71046; 74176; 74420; 80048; 80053; 81001; 82140; 83605; 83735; 83880; 84100; 84484; 85025; 85610; 85730; 86140; 87040; 87077; 87086; 87186; 87324; 87340; 90935; 93005; 99285

== ENCOUNTER 2023-02-12 07:18 | Day surgery (SDC) | payer MEDICARE, OTHER ==
[2023-02-07 11:43] VITALS: BMI 32.7
[~2023-02-12 07:18] MED LIST changes: +CIPROFLOXACIN/DEXTROSE PMX 400 MG in DEXTROSE/WATER 1 200ML.BAG IVPB PRN; -DEXAMETHASONE SOD PHOSPHATE 10 MG/ML 1 ML VIAL IV ONE; +DEXAMETHASONE SOD PHOSPHATE 4 MG/ML 1 ML VIAL IV ONE; -HEPARIN SODIUM,PORCINE 5,000 UNIT/ML 1 ML VIAL SQ ONE; +HYDROmorphone 0.5 MG/0.5 ML SYRINGE IVP PRN; +LIDOCAINE 1% (10MG/ML) FOR IV START INTRADERMA PRN; -MORPHINE SULFATE 4 MG/ML SYRINGE IV PRN; -Pre Op ABX Message 1 EACH MISC MISCELLANE ONE
--- NOTE | 2023-02-12 08:08 | XR ---
EXAMINATION TYPE: XR KUB DATE OF EXAM: 02/12/2023 Comparison: None Clinical History: 77-year-old female N20.1 Right ureteral stone Findings: Right-sided ureteral stent is present. Vascular calcifications in the pelvis. Left-sided pelvic phleb oliths. Right hip hemiarthroplasty. Nonobstructive bowel gas pattern. Mild stool burden. No definite suspicious calcifications radiographically apparent. Numerous known punctate renal calculi on both si edgard are not well demonstrated radiographically. Impression: Right-sided ureteral stent. Known bilateral nephrolithiasis is not well demonstrated on the current r adiograph.
[2023-02-12] MEDS ORDERED: SODIUM CHLORIDE 0.9% 500 ML 500 ML IV ONE (08:19)
--- NOTE | 2023-02-12 08:21 | P.HPIHPCON ---
History of Present Illness H&P Date: 02/12/23 Chief Complaint: Right ureteral stone This is a 77-year-old female with history of a 5 mm right-sided distal ureteral stone. She underwent stent insertion on December 07 for septic stone. She presents today for a right-sided ureteroscopy with holmium laser and stent removal. Discussed with her the risk of surgery which includes but not limited to bleeding, infection, injury to the ureter. Risk of anesthesia was also discussed with her. She understood all the risk and agreed to proceed Consent for Procedure: I have explained the operation/procedure to the patient, including the risks, benefits, side effects, alternative therapies (including not receiving the proposed treatment or service), the likelihood of the patient achieving his/her goals, and potential recuperation problems for the procedure/sedation/analgesia, as well as any blood products, if indicated. I also explained to the patient the risks, benefits and side effects of the alternatives, as well as the risks related to not receiving the proposed procedure, care, treatment, or services. Past Medical History Past Medical History: Coronary Artery Disease (CAD), Cancer, Heart Failure, CVA/TIA, Diabetes Mellitus, Eye Disorder, GERD/Reflux, Hyperlipidemia, Hypertension, Osteoarthritis (OA), Pneumonia, Renal Disease Additional Past Medical History / Comment(s): HX OF LEFT BREAST CANCER, NEUROPA THY FEET & HANDS, RT EYE DIABETIC RETINOPATHY-POOR VISION, ANEMIA, ESRD History of Any Multi-Drug Resistant Organisms: None Reported Past Surgical History: Section, Cholecystectomy, Tonsillectomy, Tubal Ligation Additional Past Surgical History / Comment(s): LEFT BREAST LUMPECTOMY- no chemo, no radiation but took hormone pills, D&C, GERSON CATARACT SX-LENS IMPLANTS. Past Anesthesia/Blood Transfusion Reactions: Previous Problems w/ Anesthesia Additional Past Anesthesia/Blood Transfusion Reaction / Comment(s): STATED "TOOK A LONG TIME WAKING UP FROM ANESTHESIA" Past Psychological History: No Psychological Hx Reported Smoking Status: Former smoker Past Alcohol Use History: None Reported Additional Past Alcohol Use History / Comment(s): SMOKED 1958 AND QUIT 1962 SMOKED Past Drug Use History: None Reported - Past Family History Mother Family Medical History: No Reported History Brother(s) Family Medical History: Diabetes Mellitus Medications and Allergies Home Medications Medication Instructions Recorded Confirmed Type Acetaminophen Tab [Tylenol] 650 mg PO Q6H PRN 08/13/18 02/07/23 History Acetaminophen [Tylenol] 650 mg PO MOWEFR PRN 06/19/20 02/07/23 History Midodrine [ProAmatine] 5 mg PO MOWEFR 06/19/20 02/07/23 History Sevelamer [Renvela] 1,600 mg PO TID 06/19/20 02/07/23 History Simethicone [Gas-X] 125 mg PO Q8H PRN 06/19/20 02/07/23 History Apixaban [Eliquis] 2.5 mg PO BID 07/01/20 02/07/23 History Atorvastatin [Lipitor] 80 mg PO HS 12/04/22 02/07/23 History Cranberry Fruit [Cranberry] 465 mg PO DAILY 12/04/22 02/07/23 History Cyanocobalamin (Vitamin B-12) 1,000 mcg PO DAILY 12/04/22 02/07/23 History [Vitamin B-12] Ergocalciferol (Vitamin D2) 1,250 mcg PO FR 12/04/22 02/07/23 History [Drisdol (50,000 Iu)] Escitalopram [Lexapro] 5 mg PO DAILY 12/04/22 02/07/23 History Ferrous Sulfate [Iron (65 MG 325 mg PO DAILY 12/04/22 02/07/23 History Elemental)] Loperamide [Imodium] 2 mg PO QID PRN MDD 8 MG 12/04/22 02/07/23 History Omeprazole 20 mg PO DAILY 12/04/22 02/07/23 History Ondansetron [Zofran] 4 mg PO Q6H PRN 12/04/22 02/07/23 History Thiamine [Vitamin B-1] 100 mg PO DAILY 12/04/22 02/07/23 History atenoloL [Tenormin] 12.5 mg PO DAILY PRN 12/04/22 02/12/23 History cloNIDine HCL [Catapres] 0.1 mg PO DAILY PRN 12/04/22 02/07/23 History L.acidoph,Paracasei, B.lactis 1 each PO DAILY 02/07/23 02/07/23 History [Probiotic] Letrozole [Femara] 2.5 mg PO DAILY 02/07/23 02/07/23 History Losartan Potassium 50 mg PO DAILY 02/07/23 02/07/23 History Multivitamins, Thera [Multivitamin 1 tab PO DAILY 02/07/23 02/07/23 History (formulary)] hydrALAZINE HCL [Apresoline] 25 mg PO BID 02/07/23 02/07/23 History Allergies Allergy/AdvReac Type Severity Reaction Status Date / Time Penicillins Allergy Rash/Hives Verified 02/12/23 08:00 Surgical - Exam Vital Signs Temp Pulse Resp BP Pulse Ox 97.1 F L 69 14 197/76 99 02/12/23 08:17 02/12/23 08:17 02/12/23 08:17 02/12/23 08:17 02/12/23 08:17 - General no distress, moderate pain - Eyes normal ocular movement, no pale - ENT normal nares, normal mucosa - Respiratory normal expansion, normal respiratory effort - Abdomen Abdomen: soft, tender (right flank) Assessment and Plan Assessment: All wire for right-sided ureteroscopy, holmium laser lithotripsy, stone basketing and stent removal
[2023-02-12 08:26] LABS: Glucose,Whole Blood 98 mg/dL (70-110)
[2023-02-12] MEDS ORDERED: NEOSTIGMINE 1 MG/ML 10 ML VIAL ONE (08:37)
[2023-02-12] MEDS ORDERED: MIDAZOLAM 2 MG/2 ML VIAL ONE (08:37)
[2023-02-12] MEDS ORDERED: PROPOFOL 10 MG/ML 20 ML VIAL IV ONE (08:37)
[2023-02-12] MEDS ORDERED: ePHEDrine 50 MG/ML 1 ML VIAL ONE (08:37)
[2023-02-12] MEDS ORDERED: fentaNYL (PF) 50 MCG/ML 2 ML AMP ONE (08:37)
[2023-02-12] MEDS ORDERED: LIDOCAINE 2% INJ 20 MG/ML (2 ML VIAL) ONE (08:37)
[2023-02-12] MEDS ORDERED: ROCURONIUM 10 MG/ML (5 ML VIAL) IV ONE (08:37)
[2023-02-12] MEDS ORDERED: GLYCOPYRROLATE 0.2 MG/ML 2 ML VIAL ONE (08:37)
[2023-02-12 08:39] LABS: Anisocytosis Slight; Basophils # (A) 0.1 k/uL (0-0.2); Basophils % (A) 1 %; Eosinophils # (A) 0.9 k/uL (0-0.7); Eosinophils % (A) 7 %; HCT 39.1 % (34.0-46.0); HGB 12.9 gm/dL (11.4-16.0); Lymphocytes # (A) 3.3 k/uL (1.0-4.8); Lymphocytes % (A) 25 %; MCV 93.9 fL (80.0-100.0); Mean Platelet Volume 9.4; Monocytes # (A) 0.6 k/uL (0-1.0); Monocytes % (A) 5 %; Neutrophils # (A) 8.3 k/uL (1.3-7.7); Neutrophils % (A) 62 %; Platelet Count 199 k/uL (150-450); RBC 4.16 m/uL (3.80-5.40); RDW 16.3 % (11.5-15.5); WBC 13.4 k/uL (3.8-10.6)
[2023-02-12 08:44] LABS: Potassium 5.7 mmol/L (3.5-5.1); Total Protein 7.9 g/dL (6.3-8.2)
[2023-02-12 08:45] LABS: Albumin 4.4 g/dL (3.5-5.0)
[2023-02-12 09:48] VITALS: TEMP 96.9
--- NOTE | 2023-02-12 10:05 | P.OP ---
Date of Procedure: 02/12/23 Preoperative Diagnosis: Right ureteral, renal stone Postoperative Diagnosis: Same Procedure(s) Performed: Cystoscopy, right ureteroscopy, holmium laser lithotripsy, stone basketing and stent removal Implants: none Anesthesia: SENA Surgeon: Bhupendra Cueto Estimated Blood Loss (ml): 1 Pathology: other (right renal, right ureteral stone) Condition: stable Disposition: PACU Indications for Procedure: This is a 77-year-old female with history of a 5 mm right-sided distal ureteral stone. She underwent stent insertion on December 07 for septic stone. She presents today for a right-sided ureteroscopy with holmium laser and stent removal. Discussed with her the risk of surgery which includes but not limited to bleeding, infection, injury to the ureter. Risk of anesthesia was also discussed with her. She understood all the risk and agreed to proceed Operative Findings: Right UPJ stone, multiple stones within the kidney Description of Procedure: Patient brought to the operating room, general anesthesia was induced. She was prepped and draped in sterile fashion and placed in dorsal lithotomy position. Cystoscopy fitted with 21-Barbadian sheath was inserted per urethra, cystoscopy was performed which showed no abnormality within the bladder. Next the stent was grasped and removed to the meatus. Next a sensor wire was advanced through the stent and the stent was removed with the wire in place. Next a semirigid ureteroscope was inserted per urethra and advanced up the right ureteral orifice, At this point stone was encountered at the UPJ. I attempted to address the stone using the semirigid ureteroscope but given the angle I was not able to. At this time the ureteroscope was withdrawn with the wire in place. Pullback ureteroscopy was performed which showed no injury to the ureter or any ureteral stones. At this time an 1113 Barb[place] access sheath was passed over the wire and into the proximal ureter. Next a flexible ureteroscope was inserted through the access sheath, the stone was fragmented using the holmium laser, stone fragment was removed using the stone basket. At this time renoscopy was performed which showed multiple stones throughout the kidney, tones were grasped using stone basket. Repeat renoscopy showed no injury to the kidney or any sizable stones within the kidney. Ureteroscopy was performed which showed no injury to the ureter or any evidence of any ureteral stones. The bladder was emptied at the end of the case. Patient tolerated procedure well was taken to recovery in stable condition
[2023-02-12 11:31] VITALS: BP 156/73; PULSE 64; RESP 17
[2023-02-12 11:36] LABS: Glucose,Whole Blood 97 mg/dL (70-110)
--- NOTE | 2023-02-12 15:23 | FL ---
Intraoperative/procedural fluoroscopic services were provided. Total fluoroscopy time is 4 seconds wi th a total of 1 submitted images to PACS. Please see the operative/procedural note for further detail s. DAP: [id number]
== END 2023-02-12 11:45 | disposition home or self-care (01) ==
LOC: OR 07:18
PROVIDERS: ATTEND Urology
DX: N20.2 Calculus of kidney with calculus of ureter (principal); I25.10 Atherosclerotic heart disease of native coronary artery without angina pectoris; I11.0 Hypertensive heart disease with heart failure; I50.9 Heart failure, unspecified; E78.5 Hyperlipidemia, unspecified; E11.40 Type 2 diabetes mellitus with diabetic neuropathy, unspecified; J18.9 Pneumonia, unspecified organism; M19.90 Unspecified osteoarthritis, unspecified site; E11.319 Type 2 diabetes mellitus with unspecified diabetic retinopathy without macular edema; K21.9 Gastro-esophageal reflux disease without esophagitis; Z80.3 Family history of malignant neoplasm of breast; Z86.73 Personal history of transient ischemic attack (TIA), and cerebral infarction without residual deficits; Z90.49 Acquired absence of other specified parts of digestive tract; Z98.51 Tubal ligation status; Z90.89 Acquired absence of other organs; Z98.891 History of uterine scar from previous surgery; Z87.891 Personal history of nicotine dependence; Z83.3 Family history of diabetes mellitus; Z79.899 Other long term (current) drug therapy; Z88.0 Allergy status to penicillin
CPT/HCPCS: 80053; 85025; 82365; 74018; 52353; C1769; J2250; J2710; J2405; J3010; J0744; J2704; J2001

== ENCOUNTER 2024-10-07 04:23 | Inpatient (IN) | payer MEDICARE, OTHER ==
--- NOTE | 2024-10-07 04:28 | ED ---
Recheck HPI - General Source: RN notes reviewed, old records reviewed Mode of arrival: ambulatory Limitations: no limitations - History of Present Illness -: hour(s) Returns Today for: Called Because of Abnormal Lab/Test, persistent/worsening pain related to initial visit Symptoms Since Prior Visit: no new symptoms Associated Symptoms: none Treatments Prior to Arrival: other (0) <Ismael Matute - Last Filed: 10/07/24 04:54> <Bushra Rankin - Last Filed: 10/07/24 18:42> - General Stated Complaint: Fall- hip fracture Time Seen by Provider: 10/07/24 04:28 - History of Present Illness Initial Comments: This is a 79-year-old female to the ER for evaluation today. Patient referred for evaluation of hip fracture after a fall excepted in transfer for hip fracture treatment secondary to kidney disease (Ismael Matute) - Related Data Home Medications Medication Instructions Recorded Confirmed Acetaminophen Tab [Tylenol] 650 mg PO Q6H PRN MDD 3000mg 08/13/18 10/07/24 Sevelamer [Renvela] 1,600 mg PO TID 06/19/20 10/07/24 Apixaban [Eliquis] 2.5 mg PO BID 07/01/20 10/07/24 Atorvastatin [Lipitor] 80 mg PO HS 12/04/22 10/07/24 Ergocalciferol (Vitamin D2) 1,250 mcg PO TH 12/04/22 10/07/24 [Drisdol (50,000 Iu)] Ferrous Sulfate [Iron (65 MG 325 mg PO DAILY 12/04/22 10/07/24 Elemental)] Loperamide [Imodium] 2 mg PO Q8H PRN 12/04/22 10/07/24 Omeprazole 20 mg PO DAILY 12/04/22 10/07/24 Ondansetron [Zofran] 4 mg PO Q6H PRN 12/04/22 10/07/24 Thiamine [Vitamin B-1] 100 mg PO DAILY 12/04/22 10/07/24 L.acidoph,Paracasei, B.lactis 1 cap PO DAILY 02/07/23 10/07/24 [Probiotic] Losartan Potassium 50 mg PO BID 02/07/23 10/07/24 Multivitamins, Thera [Multivitamin 1 tab PO DAILY 02/07/23 10/07/24 (formulary)] hydrALAZINE HCL [Apresoline] 50 mg PO TID 02/07/23 10/07/24 Acetaminophen [Tylenol 8 Hour] 650 mg PO BID 10/07/24 10/07/24 Benzonatate [Tessalon Perles] 100 mg PO TID 10/07/24 10/07/24 HYDROcodone/APAP 5-325MG [Drain 1 tab PO Q6H PRN 10/07/24 10/07/24 5-325] Lidocaine-Prilocaine Cream [Emla 1 applic TOPICAL MOWEFR 10/07/24 10/07/24 Cream 2.5%/2.5%] Melatonin 5 mg PO HS 10/07/24 10/07/24 Sevelamer [Renvela] 800 mg PO DIRECTED PRN 10/07/24 10/07/24 Sodium Chloride [Saline Nasal Mist] 1 spray EA NOSTRIL Q2H PRN 10/07/24 10/07/24 bisacodyL [Dulcolax] 10 mg RECTAL DAILY PRN 10/07/24 10/07/24 carvediloL [Coreg] 12.5 mg PO BID 10/07/24 10/07/24 dexAMETHasone [Decadron] 6 mg PO DAILY 10/07/24 10/07/24 guaiFENesin-DM 100-10MG/5ML 10 ml PO Q6H PRN 10/07/24 10/07/24 [Robitussin DM] traZODone HCL [Desyrel] 75 mg PO HS 10/07/24 10/07/24 Allergies Allergy/AdvReac Type Severity Reaction Status Date / Time Penicillins Allergy Rash/Hives Verified 10/07/24 08:10 Review of Systems ROS Other: All systems not noted in ROS Statement are negative. <Ismael Matute - Last Filed: 10/07/24 04:54> ROS Other: All systems not noted in ROS Statement are negative. <Bushra Rankin - Last Filed: 10/07/24 18:42> ROS Statement: Those systems with pertinent positive or pertinent negative responses have been documented in the HPI. Past Medical History Past Medical History: Coronary Artery Disease (CAD), Cancer, Heart Failure, CVA/TIA, Diabetes Mellitus, Eye Disorder, GERD/Reflux, Hyperlipidemia, Hypertension, Osteoarthritis (OA), Pneumonia, Renal Disease Additional Past Medical History / Comment(s): HX OF LEFT BREAST CANCER, NEUROPATHY FEET & HANDS, RT EYE DIABETIC RETINOPATHY-POOR VISION, ANEMIA, ESRD History of Any Multi-Drug Resistant Organisms: None Reported Past Surgical History: Section, Cholecystectomy, Tonsillectomy, Tubal Ligation Additional Past Surgical History / Comment(s): LEFT BREAST LUMPECTOMY- no chemo, no radiation but took hormone pills, D&C, GERSON CATARACT SX-LENS IMPLANTS. Past Anesthesia/Blood Transfusion Reactions: Previous Problems w/ Anesthesia Additional Past Anesthesia/Blood Transfusion Reaction / Comment(s): STATED "TOOK A LONG TIME WAKING UP FROM ANESTHESIA" Past Psychological History: No Psychological Hx Reported Smoking Status: Former smoker Past Alcohol Use History: None Reported Additional Past Alcohol Use History / Comment(s): SMOKED 1958 AND QUIT 1962 SMOKED Past Drug Use History: None Reported - Past Family History Mother Family Medical History: No Reported History Brother(s) Family Medical History: Diabetes Mellitus <Ismael Matute - Last Filed: 10/07/24 04:54> General Exam General appearance: alert, in no apparent distress Head exam: Present: atraumatic, normocephalic, normal inspection Eye exam: Present: normal appearance, PERRL, EOMI. Absent: scleral icterus, conjunctival injection, periorbital swelling ENT exam: Present: normal exam, mucous membranes moist Neck exam: Present: normal inspection. Absent: tenderness, meningismus, lymphadenopathy Respiratory exam: Present: normal lung sounds bilaterally. Absent: respiratory distress, wheezes, rales, rhonchi, stridor Cardiovascular Exam: Present: regular rate, normal rhythm, normal heart sounds. Absent: systolic murmur, diastolic murmur, rubs, gallop, clicks GI/Abdominal exam: Present: soft, normal bowel sounds. Absent: distended, tenderness, guarding, rebound, rigid Extremities exam: Present: normal inspection, full ROM, normal capillary refill. Absent: tenderness, pedal edema, joint swelling, calf tenderness Back exam: Present: normal inspection Neurological exam: Present: alert, oriented X3, CN II-XII intact Psychiatric exam: Present: normal affect, normal mood Skin exam: Present: warm, dry, intact, normal color. Absent: rash <Ismael Matute - Last Filed: 10/07/24 04:54> Course <Ismael Matute - Last Filed: 10/07/24 04:54> Vital Signs 10/07/24 10/07/24 10/07/24 04:34 06:23 10:24 Temperature 98.9 F Pulse Rate 68 73 73 Respiratory 18 18 16 Rate Blood Pressure 189/66 191/72 170/90 O2 Sat by Pulse 97 97 94 L Oximetry 10/07/24 10/07/24 10/07/24 12:00 14:00 14:54 Temperature Pulse Rate 77 73 Respiratory 18 18 Rate Blood Pressure 168/62 161/67 105/67 O2 Sat by Pulse 97 96 Oximetry 10/07/24 10/07/24 17:04 18:25 Temperature 98.2 F 98.5 F Pulse Rate 74 80 Respiratory 16 18 Rate Blood Pressure 107/50 127/45 O2 Sat by Pulse 96 92 L Oximetry - Reevaluation(s) Reevaluation #1: 10/07/24 04:56 Medical records reviewed (Ismael Mautte) Reevaluation #2: 10/07/24 04:56 Patient symptoms unchanged (Ismael Matute) Reevaluation #3: 10/07/24 04:57 Patient informed of results questions answered (Ismael Matute) Reevaluation #4: Was pt. sent in by a medical professional or institution (, PA, RAILWAY SWITCHMAN, urgent c are, hospital, or care home...) When possible be specific @ -no Did you speak to anyone other than the patient for history (EMS, parent, family, police, friend...)? What history was obtained from this source @ -no Did you review nursing and triage notes (agree or disagree)? Why? @ -agree Are old charts reviewed (outside hosp., previous admission, EMS record, old EKG, old radiological studies, urgent care reports/EKG's, care home records)? Report findings @ -yes Differential Diagnosis (chest pain, altered mental status, abdominal pain women, abdominal pain men, vaginal bleeding, weakness, fever, dyspnea, syncope, headache, dizziness, GI bleed, back pain, seizure, CVA, palpatations, mental health, musculoskeletal)? @ -prior EKG interpreted by me (3pts min.). @ -yes X-rays interpreted by me (1pt min.). @ -yes negative for acute disease CT interpreted by me (1pt min.). @ -no U/S interpreted by me (1pt. min.). @ -no What testing was considered but not performed or refused? (CT, X-rays, U/S, labs)? Why? @ -none What meds were considered but not given or refused? Why? @ -none Did you discuss the management of the patient with other professionals (professionals i.e. , PA, RAILWAY SWITCHMAN, lab, RT, psych nurse, aids social worker, turn out worker, teacher, control officer manager, lining caser)? Give summary @ -no Was smoking cessation discussed for >3mins.? @ -no Was critical care preformed (if so, how long)? @ -no Were there social determinants of health that impacted care today? How? (Home lessness, low income, unemployed, alcoholism, drug addiction, transportation, low edu. Level, literacy, decrease access to med. care, [facility], rehab)? @ -none Was there de-escalation of care discussed even if they declined (Discuss DNR or withdrawal of care, Hospice)? DNR status @ -no What co-morbidities impacted this encounter? (DM, HTN, Smoking, COPD, CAD, Cancer, CVA, ARF, Chemo, Hep., AIDS, mental health diagnosis, sleep apnea, morbid obesity)? @ -none Was patient admitted / discharged? Hospital course, mention meds given and route, prescriptions, significant lab abnormalities, going to OR and other pertinent info. @ - Undiagnosed new problem with uncertain prognosis? @ -no Drug Therapy requiring intensive monitoring for toxicity (Heparin, Nitro, Insulin, Cardizem)? @ -no Were any procedures done? @ -no Diagnosis/symptom? @ - Acute, or Chronic, or Acute on Chronic? @ -Acute Uncomplicated (without systemic symptoms) or Complicated (systemic symptoms)? @ -Complicated Side effects of treatment? @ -no Exacerbation, Progression, or Severe Exacerbation? @ -exacerbation Poses a threat to life or bodily function? How? (Chest pain, USA, PR, pneumonia, PE, COPD, DKA, ARF, appy, cholecystitis, CVA, Diverticulitis, Homicidal, Suicidal, threat to staff... and all critical care pts) @ -yes (Ismael Matute) - Consultations Consultation #1: Spoke with orthopedics to admit this patient (Ismael Matute) Medical Decision Making - Radiology Data Radiology results: report reviewed (Transfer x-ray hip left positive IT fracture), image reviewed <Ismael Matute - Last Filed: 10/07/24 04:54> - Lab Data Result diagrams: 10/07/24 06:30 10/07/24 06:30 <Bushra Rankin - Last Filed: 10/07/24 18:42> - Medical Decision Making 79 female to the ER for evaluation of fall with hip fracture. Patient has chronic kidney disease and will be admitted for orthopedic treatment (Seth Matute) EKG demonstrates sinus rhythm with a rate of 72. QRS 89. QTc of 420. Mild ST depression in 3 and aVF. Artifact V4 through V6, aVL (Bushra Rankin) Disposition Is patient prescribed a controlled substance at d/c from ED?: No Time of Disposition: 05:00 <Ismael Matute - Last Filed: 10/07/24 04:54> <Bushra Rankin - Last Filed: 10/07/24 18:42> Clinical Impression: Fall, Hip fracture, left, CKD (chronic kidney disease) Disposition: ADMITTED IP TO THIS HOSP Condition: Fair
[2024-10-07] MEDS ORDERED: NALOXONE 0.4 MG/ML 1 ML VIAL IV PRN (04:50)
[2024-10-07] MEDS: MORPHINE SULFATE 4 MG/ML SYRINGE IV PRN (06:20)
[2024-10-07] MEDS: SODIUM CHLORIDE 0.9% 1,000 ML IV SCH (06:20)
[2024-10-07] MEDS: SODIUM CHLORIDE 0.9% 1,000 ML IV STA (07:00)
[2024-10-07 07:31] LABS: Basophils % (A) 0 %; Eosinophils # (A) 0.1 k/uL (0-0.7); Eosinophils % (A) 1 %; HCT 26.1 % (34.0-46.0); HGB 8.8 gm/dL (11.4-16.0); Lymphocytes # (A) 1.7 k/uL (1.0-4.8); Lymphocytes % (A) 6 %; MCH 31.6 pg (25.0-35.0); MCHC 33.9 g/dL (31.0-37.0); MCV 93.2 fL (80.0-100.0); Mean Platelet Volume 9.6; Monocytes # (A) 1.6 k/uL (0-1.0); Monocytes % (A) 6 %; Neutrophils # (A) 23.9 k/uL (1.3-7.7); Neutrophils % (A) 86 %; Platelet Count 198 k/uL (150-450); RBC 2.79 m/uL (3.80-5.40); RDW 15.7 % (11.5-15.5); WBC 27.7 k/uL (3.8-10.6)
[2024-10-07 07:42] LABS: ALT 58 U/L (4-34); AST 36 U/L (14-36); African American GFR (CKD) 6 (>60 ml/min/1.73 sqM); Albumin 3.4 g/dL (3.5-5.0); Albumin/Globulin Ratio 1.5; Alkaline Phosphatase 107 U/L (38-126); Anion Gap 9 mmol/L; Blood Urea Nitrogen 82 mg/dL (7-17); Calcium 8.4 mg/dL (8.4-10.2); Carbon Dioxide 32 mmol/L (22-30); Chloride 89 mmol/L (98-107); Globulin 2.3 g/dL; Glucose 98 mg/dL (74-99); Non-African American GFR(CKD) 5 (>60 ml/min/1.73 sqM); Potassium 4.6 mmol/L (3.5-5.1); Sodium 130 mmol/L (137-145); Total Bilirubin 0.9 mg/dL (0.2-1.3); Total Protein 5.7 g/dL (6.3-8.2)
[2024-10-07 07:47] LABS: INR 1.1 (<1.2); Partial Thromboplastin Time 22.1 sec (22.0-30.0); Prothrombin Time 11.8 sec (10.0-12.5)
[2024-10-07] MEDS: carvediloL 12.5 MG TAB PO SCH (10:20)
[2024-10-07] MEDS: LOSARTAN 50 MG TAB PO SCH (10:26)
[2024-10-07] MEDS: hydrALAZINE HCL 50 MG TAB PO SCH (10:26)
[2024-10-07] MEDS ORDERED: hydrALAZINE HCL 20 MG/ML 1 ML VIAL IVP PRN (11:10)
--- NOTE | 2024-10-07 11:14 | P.NPCON ---
History of Present Illness - Reason for Consult end stage renal disease - History of Present Illness Reason for consultation: End-stage renal disease History of present illness: Patient is a 79-year-old female seen in renal consultation for end-stage renal disease. She is maintained on hemodialysis on Saturday schedule via right upper extremity AV fistula. Patient resides in extended-care facility. Patient states she sustained a fall last night while trying to get into bed. Patient denies losing consciousness. Patient states she leaned over a table to support her self but the table moved. She is noted to have a left hip fracture. Patient has longstanding history of diabetes. Denies history of coronary artery disease. No nausea or vomiting. No chest pain or shortness of breath. No fever or chills. She is on room air. Vital signs are stable. Blood pressure high. General: No acute distress. HEENT: Head exam is unremarkable. LUNGS: No audible rhonchi or wheezes. HEART: Rate and Rhythm are regular. ABDOMEN: Nontender. EXTREMITITES: No edema. Past Medical History Past Medical History: Coronary Artery Disease (CAD), Cancer, Heart Failure, CVA/TIA, Diabetes Mellitus, Eye Disorder, GERD/Reflux, Hyperlipidemia, Hypertension, Osteoarthritis (OA), Pneumonia, Renal Disease Additional Past Medical History / Comment(s): HX OF LEFT BREAST CANCER, NEUROPATHY FEET & HANDS, RT EYE DIABETIC RETINOPATHY-POOR VISION, ANEMIA, ESRD History of Any Multi-Drug Resistant Organisms: None Reported Past Surgical History: Section, Cholecystectomy, Tonsillectomy, Tubal Ligation Additional Past Surgical History / Comment(s): LEFT BREAST LUMPECTOMY- no chemo, no radiation but took hormone pills, D&C, GERSON CATARACT SX-LENS IMPLANTS. Past Anesthesia/Blood Transfusion Reactions: Previous Problems w/ Anesthesia Additional Past Anesthesia/Blood Transfusion Reaction / Comment(s): STATED "TOOK A LONG TIME WAKING UP FROM ANESTHESIA" Past Psychological History: No Psychological Hx Reported Smoking Status: Former smoker Past Alcohol Use History: None Reported Additional Past Alcohol Use History / Comment(s): SMOKED 1958 AND QUIT 1962 SMOKED Past Drug Use History: None Reported - Past Family History Mother Family Medical History: No Reported History Brother(s) Family Medical History: Diabetes Mellitus Medications and Allergies Home Medications Medication Instructions Recorded Confirmed Type Acetaminophen Tab [Tylenol] 650 mg PO Q6H PRN MDD 3000mg 08/13/18 10/07/24 History Sevelamer [Renvela] 1,600 mg PO TID 06/19/20 10/07/24 History Apixaban [Eliquis] 2.5 mg PO BID 07/01/20 10/07/24 History Atorvastatin [Lipitor] 80 mg PO HS 12/04/22 10/07/24 History Ergocalciferol (Vitamin D2) 1,250 mcg PO TH 12/04/22 10/07/24 History [Drisdol (50,000 Iu)] Ferrous Sulfate [Iron (65 MG 325 mg PO DAILY 12/04/22 10/07/24 History Elemental)] Loperamide [Imodium] 2 mg PO Q8H PRN 12/04/22 10/07/24 History Omeprazole 20 mg PO DAILY 12/04/22 10/07/24 History Ondansetron [Zofran] 4 mg PO Q6H PRN 12/04/22 10/07/24 History Thiamine [Vitamin B-1] 100 mg PO DAILY 12/04/22 10/07/24 History L.acidoph,Paracasei, B.lactis 1 cap PO DAILY 02/07/23 10/07/24 History [Probiotic] Losartan Potassium 50 mg PO BID 02/07/23 10/07/24 History Multivitamins, Thera [Multivitamin 1 tab PO DAILY 02/07/23 10/07/24 History (formulary)] hydrALAZINE HCL [Apresoline] 50 mg PO TID 02/07/23 10/07/24 History Acetaminophen [Tylenol 8 Hour] 650 mg PO BID 10/07/24 10/07/24 History Benzonatate [Tessalon Perles] 100 mg PO TID 10/07/24 10/07/24 History HYDROcodone/APAP 5-325MG [[place] 1 tab PO Q6H PRN 10/07/24 10/07/24 History 5-325] Lidocaine-Prilocaine Cream [Emla 1 applic TOPICAL MOWEFR 10/07/24 10/07/24 History Cream 2.5%/2.5%] Melatonin 5 mg PO HS 10/07/24 10/07/24 History Sevelamer [Renvela] 800 mg PO DIRECTED PRN 10/07/24 10/07/24 History Sodium Chloride [Saline Nasal Mist] 1 spray EA NOSTRIL Q2H PRN 10/07/24 10/07/24 History bisacodyL [Dulcolax] 10 mg RECTAL DAILY PRN 10/07/24 10/07/24 History carvediloL [Coreg] 12.5 mg PO BID 10/07/24 10/07/24 History dexAMETHasone [Decadron] 6 mg PO DAILY 10/07/24 10/07/24 History guaiFENesin-DM 100-10MG/5ML 10 ml PO Q6H PRN 10/07/24 10/07/24 History [Robitussin DM] traZODone HCL [Desyrel] 75 mg PO HS 10/07/24 10/07/24 History Allergies Allergy/AdvReac Type Severity Reaction Status Date / Time Penicillins Allergy Rash/Hives Verified 10/07/24 08:10 Physical Exam Vitals: Vital Signs Temp Pulse Resp BP Pulse Ox 10/07/24 10:24 73 16 170/90 94 L 10/07/24 06:23 73 18 191/72 97 10/07/24 04:34 98.9 F 68 18 189/66 97 Intake and Output 10/06/24 10/07/24 10/07/24 22:59 06:59 14:59 Other: Weight 90.718 kg Results - Lab Results Most recent lab results Calcium 8.4 mg/dL (8.4-10.2) 10/07/24 06:30 10/07/24 06:30 10/07/24 06:30 Assessment and Plan Plan: Assessment: 1. End-stage renal disease maintained on hemodialysis on Saturday schedule via right upper extremity AV fistula. 2. Status post fall with left hip fracture. Orthopedic surgery consulted. 3. Hypertension with chronic kidney disease. 4. Diabetes mellitus. 5. Anemia of chronic kidney disease. Plan: Hemodialysis today. Add as needed hydralazine. Check iron studies. Thank you for the consultation. I will continue to follow the patient with you during her hospital stay.
[2024-10-07] MEDS ORDERED: HYDROcodone/APAP 5-325MG 1 EACH TAB PO PRN (13:29)
--- NOTE | 2024-10-07 13:33 | P.HPOR ---
History of Present Illness H&P Date: 10/07/24 Chief Complaint: Left hip pain Patient is an 79-year-old female who presented to hospital this morning status post fall last night at extended-care facility. Patient said she was trying to get into her bed last night from wheelchair when she fell landing on her left hip. Patient states since the fall she has been having left hip pain. Patient denies pain in any other locations. Patient does have end-stage renal disease and does receive dialysis on Saturday, Saturday, Saturday schedule via right upper extremity AV fistula. Patient denies losing consciousness after the fall. She says she does have a history of 1 stroke. She says she did have a work injury a long time ago which did affect the left lower extremity from the knee down. Patient states she does take Eliquis normally for blood thinner. Patient believes her last dose was yesterday at the extended care facility she resides at. CT scan does demonstrate left hip IT fracture. Patient denies any other or thopedic complaints at this time. Past Medical History Past Medical History: Coronary Artery Disease (CAD), Cancer, Heart Failure, CVA/TIA, Diabetes Mellitus, Eye Disorder, GERD/Reflux, Hyperlipidemia, Hypertension, Osteoarthritis (OA), Pneumonia, Renal Disease Additional Past Medical History / Comment(s): HX OF LEFT BREAST CANCER, NEUROPATHY FEET & HANDS, RT EYE DIABETIC RETINOPATHY-POOR VISION, ANEMIA, ESRD History of Any Multi-Drug Resistant Organisms: None Reported Past Surgical History: Section, Cholecystectomy, Tonsillectomy, Tubal Ligation Additional Past Surgical History / Comment(s): LEFT BREAST LUMPECTOMY- no chemo, no radiation but took hormone pills, D&C, GERSON CATARACT SX-LENS IMPLANTS. Past Anesthesia/Blood Transfusion Reactions: Previous Problems w/ Anesthesia Additional Past Anesthesia/Blood Transfusion Reaction / Comment(s): STATED "TOOK A LONG TIME WAKING UP FROM ANESTHESIA" Past Psychological History: No Psychological Hx Reported Smoking Status: Former smoker Past Alcohol Use History: None Reported Additional Past Alcohol Use History / Comment(s): SMOKED 1958 AND QUIT 1962 SMOKED Past Drug Use History: None Reported - Past Family History Mother Family Medical History: No Reported History Brother(s) Family Medical History: Diabetes Mellitus Medications and Allergies Home Medications Medication Instructions Recorded Confirmed Type Acetaminophen Tab [Tylenol] 650 mg PO Q6H PRN MDD 3000mg 08/13/18 10/07/24 History Sevelamer [Renvela] 1,600 mg PO TID 06/19/20 10/07/24 History Apixaban [Eliquis] 2.5 mg PO BID 07/01/20 10/07/24 History Atorvastatin [Lipitor] 80 mg PO HS 12/04/22 10/07/24 History Ergocalciferol (Vitamin D2) 1,250 mcg PO TH 12/04/22 10/07/24 History [Drisdol (50,000 Iu)] Ferrous Sulfate [Iron (65 MG 325 mg PO DAILY 12/04/22 10/07/24 History Elemental)] Loperamide [Imodium] 2 mg PO Q8H PRN 12/04/22 10/07/24 History Omeprazole 20 mg PO DAILY 12/04/22 10/07/24 History Ondansetron [Zofran] 4 mg PO Q6H PRN 12/04/22 10/07/24 History Thiamine [Vitamin B-1] 100 mg PO DAILY 12/04/22 10/07/24 History L.acidoph,Paracasei, B.lactis 1 cap PO DAILY 02/07/23 10/07/24 History [Probiotic] Losartan Potassium 50 mg PO BID 02/07/23 10/07/24 History Multivitamins, Thera [Multivitamin 1 tab PO DAILY 02/07/23 10/07/24 History (formulary)] hydrALAZINE HCL [Apresoline] 50 mg PO TID 02/07/23 10/07/24 History Acetaminophen [Tylenol 8 Hour] 650 mg PO BID 10/07/24 10/07/24 History Benzonatate [Tessalon Perles] 100 mg PO TID 10/07/24 10/07/24 History HYDROcodone/APAP 5-325MG [[place] 1 tab PO Q6H PRN 10/07/24 10/07/24 History 5-325] Lidocaine-Prilocaine Cream [Emla 1 applic TOPICAL MOWEFR 10/07/24 10/07/24 History Cream 2.5%/2.5%] Melatonin 5 mg PO HS 10/07/24 10/07/24 History Sevelamer [Renvela] 800 mg PO DIRECTED PRN 10/07/24 10/07/24 History Sodium Chloride [Saline Nasal Mist] 1 spray EA NOSTRIL Q2H PRN 10/07/24 10/07/24 History bisacodyL [Dulcolax] 10 mg RECTAL DAILY PRN 10/07/24 10/07/24 History carvediloL [Coreg] 12.5 mg PO BID 10/07/24 10/07/24 History dexAMETHasone [Decadron] 6 mg PO DAILY 10/07/24 10/07/24 History guaiFENesin-DM 100-10MG/5ML 10 ml PO Q6H PRN 10/07/24 10/07/24 History [Robitussin DM] traZODone HCL [Desyrel] 75 mg PO HS 10/07/24 10/07/24 History Allergies Allergy/AdvReac Type Severity Reaction Status Date / Time Penicillins Allergy Rash/Hives Verified 10/07/24 08:10 Physical Examination Inspection: Right upper extremity AV fistula present. Left leg appears to be shortened and externally rotated. There is some evident atrophy extending distally from the left knee down. Patient does appear to have left lower extremity which is contracted negative for any open fractures. There is some swelling present in the left hip. Sensation: Equal, symmetric, by intact throughout extremities on exam. Palpation: There is some moderate tenderness to palpation diffusely throughout the left hip on exam. Nontender to palpation on rest of exam. Range of motion: Patient does have good range of motion throughout bilateral upper extremities on exam and right lower extremity exam. Patient does have limited range of motion left lower extremity on exam due to the injury of the left hip. Motor: 4/5 in all major motor groups in bilateral upper extremities and right lower extremity on exam. Left lower extremity motor exam not performed due to the injury. Special test: Positive logroll maneuver to the left. Negative Homans bilaterally. Neurovascular: Radial pulse intact, 2+ bilaterally. Cap refill under 3 seconds in digits of upper extremities. DP pulses palpable bilaterally Results - Labs Labs: Abnormal Lab Results - Last 24 Hours (Table) 10/07/24 10/07/24 Range/Units 06:30 06:30 WBC 27.7 H (3.8-10.6) k/uL RBC 2.79 L (3.80-5.40) m/uL Hgb 8.8 L (11.4-16.0) gm/dL Hct 26.1 L (34.0-46.0) % RDW 15.7 H (11.5-15.5) % Neutrophils # 23.9 H (1.3-7.7) k/uL Monocytes # 1.6 H (0-1.0) k/uL Sodium 130 L (137-145) mmol/L Chloride 89 L (98-107) mmol/L Carbon Dioxide 32 H (22-30) mmol/L BUN 82 H (7-17) mg/dL Creatinine 6.64 H (0.52-1.04) mg/dL ALT 58 H (4-34) U/L Total Protein 5.7 L (6.3-8.2) g/dL Albumin 3.4 L (3.5-5.0) g/dL H & H 10/07/24 Range/Units 06:30 Hgb 8.8 L (11.4-16.0) gm/dL Hct 26.1 L (34.0-46.0) % Coagulation 10/07/24 Range/Units 06:30 INR 1.1 (<1.2) Result Diagrams: 10/07/24 06:30 10/07/24 06:30 - Diagnostic results Hip CT: report reviewed, image reviewed (CT scan of the left hip has been reviewed. There is evident left hip IT fracture) Assessment and Plan Assessment: 1. Left hip IT fracture status post fall 2. End-stage renal disease Plan: 1. Left hip IT fracture status post fall -I did discuss the findings of the imaging and exam with my attending, Dr. Caceres. At this time we are recommending surgical intervention in the form of left hip IM nail. Surgery has been scheduled for tomorrow, , 10/08/2024left hip IM nail. Patient to be n.p.o. beginning at midnight tonight. Pain medication as needed. Withhold blood thinners at this time. Nonweightbearing to the left lower extremity. We will continue to follow patient during stay in hospital. 2. Appreciate medical and nephrology management 3. Pain management - norco; tylenol 4. DVT prophylaxis -withhold blood thinners at this time 5. GI prophylaxis -senna 6. PT/OT -nonweightbearing left lower extremity 7. Encourage incentive spirometer use Time with Patient: Less than 30
[2024-10-07] MEDS: SENNOSIDES 8.6 MG TAB PO SCH (15:04)
[2024-10-07] MEDS: HYDROcodone/APAP 7.5-325MG 1 EACH TAB PO PRN (17:08)
--- NOTE | 2024-10-07 18:08 | P.CONS ---
History of Present Illness - Reason for Consult Consult date: 10/07/24 - History of Present Illness 79 year old F with PMH of ESRD on HD MWF, diastolic CHF, GERD, HTN, h/o breast CA presents to the ED after a mechanical fall last night resulting in a left IT fracture. [facility] consulted for medical management of this patient. BP on arrival 189/66, HR 68, T 98.9F, RR 18, 97% on RA. CBC, Coag panel, CMP significant for WBC 27.7, RBC 2.79, Hg 8.8, Hct 26.1, Na 130, Cl 89, bicarb 32, BUN 82, Cr 6.64, ALT 58, alb 3.4. Currently reports left hip pain 6/10 in severity. She denies any headache, nausea or vomiting, fever or chills, chest pain, SOB, palpitations, dizziness, changes in urination or bowel habits. She denies any syncope or head trauma. States she is wheelchair bound. General: non toxic, no distress, appears at stated age Derm: warm, dry Head: atraumatic, normocephalic, symmetric Eyes: EOMI, no lid lag, anicteric sclera Mouth: no lip lesion, mucus membranes moist Cardiovascular: S1S2 reg, no murmur Lungs: CTA bilateral, no rhonchi, no rales , no accessory muscle use Ext: no gross muscle atrophy, no edema, no contractures, RUE fistula Neuro: no focal neuro deficits Psych: Alert, oriented, appropriate affect Based on my assessment of this patient, this patient meets a high complexity level of care. Hypertensive urgency Leukocytosis Normocytic anemia Hyponatremia ESRD on HD MWF Elevated ALT Left IT fracture NSQIP scoring puts her at high risk for serious complication including PNA, cardiac, VTA, surgical site infection, readmission, return to OR, and sepsis. Discussed with patient the risks of surgery and she would like to proceed understanding the risks above. Baseline EKG ordered. Leukocytosis is likely reactive and med rec shows she has been on Decadron in the recent past. Anemia with unknown baseline likely superimposed acute blood loss from IT fracture. Iron studies ordered. Transfuse if Hg < 7. Repeat CBC in the AM. Nephrology consulted with plans to resume HD today. Repeat BMP in the AM. Orthopedic surgery on board with plans for OR in the AM. CODE STATUS: FULL CODE. DVT Prophylaxis: Ch[place]quis when OK with Ortho. GI Prophylaxis: Designated medical POA if patient is not able to make medical decisions for themselves: I have reviewed the following hearing aid consultant notes: Ortho, Nephrology. I have reviewed the results of the following tests: As above. I have ordered the following tests: As above. I have discussed the care of this patient with the following independent historian: I have independently interpreted the following test below: I have discussed the management of this patient with the following physician: Past Medical History Past Medical History: Coronary Artery Disease (CAD), Cancer, Heart Failure, CVA/TIA, Diabetes Mellitus, Eye Disorder, GERD/Reflux, Hyperlipidemia, Hype rtension, Osteoarthritis (OA), Pneumonia, Renal Disease Additional Past Medical History / Comment(s): HX OF LEFT BREAST CANCER, NEUROPATHY FEET & HANDS, RT EYE DIABETIC RETINOPATHY-POOR VISION, ANEMIA, ESRD History of Any Multi-Drug Resistant Organisms: None Reported Past Surgical History: Section, Cholecystectomy, Tonsillectomy, Tubal Ligation Additional Past Surgical History / Comment(s): LEFT BREAST LUMPECTOMY- no chemo, no radiation but took hormone pills, D&C, GERSON CATARACT SX-LENS IMPLANTS. Past Anesthesia/Blood Transfusion Reactions: Previous Problems w/ Anesthesia Additional Past Anesthesia/Blood Transfusion Reaction / Comm: STATED "TOOK A LONG TIME WAKING UP FROM ANESTHESIA" Past Psychological History: No Psychological Hx Reported Smoking Status: Former smoker Past Alcohol Use History: None Reported Additional Past Alcohol Use History / Comment(s): SMOKED 1958 AND QUIT 1962 SMOKED Past Drug Use History: None Reported - Past Family History Mother Family Medical History: No Reported History Brother(s) Family Medical History: Diabetes Mellitus Medications and Allergies Home Medications Medication Instructions Recorded Confirmed Type Acetaminophen Tab [Tylenol] 650 mg PO Q6H PRN MDD 3000mg 08/13/18 10/07/24 History Sevelamer [Renvela] 1,600 mg PO TID 06/19/20 10/07/24 History Apixaban [Eliquis] 2.5 mg PO BID 07/01/20 10/07/24 History Atorvastatin [Lipitor] 80 mg PO HS 12/04/22 10/07/24 History Ergocalciferol (Vitamin D2) 1,250 mcg PO TH 12/04/22 10/07/24 History [Drisdol (50,000 Iu)] Ferrous Sulfate [Iron (65 MG 325 mg PO DAILY 12/04/22 10/07/24 History Elemental)] Loperamide [Imodium] 2 mg PO Q8H PRN 12/04/22 10/07/24 History Omeprazole 20 mg PO DAILY 12/04/22 10/07/24 History Ondansetron [Zofran] 4 mg PO Q6H PRN 12/04/22 10/07/24 History Thiamine [Vitamin B-1] 100 mg PO DAILY 12/04/22 10/07/24 History L.acidoph,Paracasei, B.lactis 1 cap PO DAILY 02/07/23 10/07/24 History [Probiotic] Losartan Potassium 50 mg PO BID 02/07/23 10/07/24 History Multivitamins, Thera [Multivitamin 1 tab PO DAILY 02/07/23 10/07/24 History (formulary)] hydrALAZINE HCL [Apresoline] 50 mg PO TID 02/07/23 10/07/24 History Acetaminophen [Tylenol 8 Hour] 650 mg PO BID 10/07/24 10/07/24 History Benzonatate [Tessalon Perles] 100 mg PO TID 10/07/24 10/07/24 History HYDROcodone/APAP 5-325MG [[place] 1 tab PO Q6H PRN 10/07/24 10/07/24 History 5-325] Lidocaine-Prilocaine Cream [Emla 1 applic TOPICAL MOWEFR 10/07/24 10/07/24 History Cream 2.5%/2.5%] Melatonin 5 mg PO HS 10/07/24 10/07/24 History Sevelamer [Renvela] 800 mg PO DIRECTED PRN 10/07/24 10/07/24 History Sodium Chloride [Saline Nasal Mist] 1 spray EA NOSTRIL Q2H PRN 10/07/24 10/07/24 History bisacodyL [Dulcolax] 10 mg RECTAL DAILY PRN 10/07/24 10/07/24 History carvediloL [Coreg] 12.5 mg PO BID 10/07/24 10/07/24 History dexAMETHasone [Decadron] 6 mg PO DAILY 10/07/24 10/07/24 History guaiFENesin-DM 100-10MG/5ML 10 ml PO Q6H PRN 10/07/24 10/07/24 History [Robitussin DM] traZODone HCL [Desyrel] 75 mg PO HS 10/07/24 10/07/24 History Allergies Allergy/AdvReac Type Severity Reaction Status Date / Time Penicillins Allergy Rash/Hives Verified 10/07/24 08:10 Physical Exam Vitals: Vital Signs Temp Pulse Resp BP Pulse Ox 10/07/24 06:23 73 18 191/72 97 10/07/24 04:34 98.9 F 68 18 189/66 97 Intake and Output 10/06/24 10/07/24 10/07/24 22:59 06:59 14:59 Other: Weight 90.718 kg Results CBC & Chem 7: 10/07/24 06:30 10/07/24 06:30 Labs: Abnormal Lab Results - Last 24 Hours (Table) 10/07/24 10/07/24 Range/Units 06:30 06:30 WBC 27.7 H (3.8-10.6) k/uL RBC 2.79 L (3.80-5.40) m/uL Hgb 8.8 L (11.4-16.0) gm/dL Hct 26.1 L (34.0-46.0) % RDW 15.7 H (11.5-15.5) % Neutrophils # 23.9 H (1.3-7.7) k/uL Monocytes # 1.6 H (0-1.0) k/uL Sodium 130 L (137-145) mmol/L Chloride 89 L (98-107) mmol/L Carbon Dioxide 32 H (22-30) mmol/L BUN 82 H (7-17) mg/dL Creatinine 6.64 H (0.52-1.04) mg/dL ALT 58 H (4-34) U/L Total Protein 5.7 L (6.3-8.2) g/dL Albumin 3.4 L (3.5-5.0) g/dL
[2024-10-07 19:48] LABS: % Iron Saturation 62.14 (12.00-45.00)
[2024-10-07 20:38] LABS: Glucose,Whole Blood 117 mg/dL (70-110)
[2024-10-07] MEDS: ATORVASTATIN 80 MG TAB PO SCH (20:43)
[2024-10-08 06:32] LABS: Glucose,Whole Blood 83 mg/dL (70-110)
[2024-10-08 09:09] LABS: Basophils # (A) 0.02 X 10*3/uL (0.00-0.10); Basophils % (A) 0.1 %; Eosinophils % (A) 1.8 %; HGB 7.3 g/dL (12.0-15.0); Lymphocytes % (A) 8.3 %; MCH 30.8 pg (27.0-32.0); MCHC 31.7 g/dL (32.0-37.0); Mean Platelet Volume 11.9 FL (9.5-12.2); Monocytes # (A) 1.27 X 10*3/uL (0.20-1.00); Monocytes % (A) 7.5 %; NRBC Per 100 WBC 0.04 X 10*3/uL (0.00-0.01); Neutrophils # (A) 13.84 X 10*3/uL (1.80-7.70); Neutrophils % (A) 81.7 %; Platelet Count 140 X 10*3/uL (140-440); RBC 2.37 X 10*6/uL (4.10-5.20); RDW 15.6 % (11.5-14.5); WBC 16.93 X 10*3/uL (4.50-10.00)
[2024-10-08 09:12] LABS: ALT 47 U/L (8-44); AST 36 U/L (13-35); Albumin 3.2 g/dL (3.8-4.9); Albumin/Globulin Ratio 1.68 Ratio (1.60-3.17); Alkaline Phosphatase 70 U/L (41-126); BUN/Creat Ratio 8.77 Ratio (12.00-20.00); Blood Urea Nitrogen 34.2 mg/dL (9.0-27.0); Calcium 7.9 mg/dL (8.7-10.3); Carbon Dioxide 29.6 mmol/L (21.6-31.8); Chloride 95 mmol/L (96-109); Globulin 1.9 g/dL (1.6-3.3); Glucose 80 mg/dL (70-110); Magnesium 1.8 mg/dL (1.5-2.4); Phosphorus 4.4 mg/dL (2.4-5.1); Potassium 4.3 mmol/L (3.5-5.5); Sodium 134 mmol/L (135-145); Total Bilirubin 0.5 mg/dL (0.3-1.2); Total Protein 5.1 g/dL (6.2-8.2)
--- NOTE | 2024-10-08 10:24 | P.PN ---
Subjective Patient is seen in follow-up for end-stage renal disease. No problems with dialysis yesterday. Scheduled for hip fracture repair today. Vital signs are stable. General: No acute distress. HEENT: Head exam is unremarkable. LUNGS: No audible rhonchi or wheezes. HEART: Rate and Rhythm are regular. ABDOMEN: Nontender. EXTREMITITES: Trace edema. Objective - Vital Signs Vital signs: Vital Signs Temp 98.0 F 10/08/24 07:35 Pulse 67 10/08/24 07:35 Resp 16 10/08/24 07:35 BP 136/55 10/08/24 07:35 Pulse Ox 99 10/08/24 07:35 FiO2 Intake & Output 10/07/24 10/08/24 10/08/24 18:59 06:59 18:59 Intake Total 910 Output Total 4400 Balance -3490 Weight 90.718 kg Intake: Intake, IV Titration 240 Amount Sodium Chloride 0.9% 1, 240 000 ml @ 20 mls/hr IV . Q24H [facility] Rx#:[id number] Oral 270 Hemodialysis 400 Output: Hemodialysis 2400 Hemodialysis Net Amount 2000 Other: # Voids 0 - Labs CBC & Chem 7: 10/08/24 04:10 10/08/24 04:10 Labs: Abnormal Lab Results - Last 24 Hours (Table) 10/07/24 10/07/24 10/08/24 Range/Units 06:30 20:36 04:10 WBC 16.93 H (4.50-10.00) X 10*3/uL RBC 2.37 L (4.10-5.20) X 10*6/uL Hgb 7.3 L (12.0-15.0) g/dL Hct 23.0 L (37.2-46.3) % MCHC 31.7 L (32.0-37.0) g/dL RDW 15.6 H (11.5-14.5) % Immature Gran # 0.10 H (0.00-0.04) X 10*3/uL Neutrophils # 13.84 H (1.80-7.70) X 10*3/uL Monocytes # 1.27 H (0.20-1.00) X 10*3/uL NRBC/100 WBC Diff 0.04 H (0.00-0.01) X 10*3/uL Sodium (135-145) mmol/L Chloride (96-109) mmol/L BUN (9.0-27.0) mg/dL Creatinine (0.6-1.5) mg/dL Est GFR (CKD-EPI) (>=60) BUN/Creatinine Ratio (12.00-20.00) Ratio POC Glucose (mg/dL) 117 H (70-110) mg/dL Calcium (8.7-10.3) mg/dL TIBC 206 L (228-460) UG/DL % Saturation 62.14 H (12.00-45.00) Transferrin 147.0 L (204.0-354.0) mg/dL Ferritin 4407.0 H (10.0-291.0) ng/mL AST (13-35) U/L ALT (8-44) U/L Total Protein (6.2-8.2) g/dL Albumin (3.8-4.9) g/dL 10/08/24 Range/Units 04:10 WBC (4.50-10.00) X 10*3/uL RBC (4.10-5.20) X 10*6/uL Hgb (12.0-15.0) g/dL Hct (37.2-46.3) % MCHC (32.0-37.0) g/dL RDW (11.5-14.5) % Immature Gran # (0.00-0.04) X 10*3/uL Neutrophils # (1.80-7.70) X 10*3/uL Monocytes # (0.20-1.00) X 10*3/uL NRBC/100 WBC Diff (0.00-0.01) X 10*3/uL Sodium 134 L (135-145) mmol/L Chloride 95 L (96-109) mmol/L BUN 34.2 H (9.0-27.0) mg/dL Creatinine 3.9 H (0.6-1.5) mg/dL Est GFR (CKD-EPI) 11 L (>=60) BUN/Creatinine Ratio 8.77 L (12.00-20.00) Ratio POC Glucose (mg/dL) (70-110) mg/dL Calcium 7.9 L (8.7-10.3) mg/dL TIBC (228-460) UG/DL % Saturation (12.00-45.00) Transferrin (204.0-354.0) mg/dL Ferritin (10.0-291.0) ng/mL AST 36 H (13-35) U/L ALT 47 H (8-44) U/L Total Protein 5.1 L (6.2-8.2) g/dL Albumin 3.2 L (3.8-4.9) g/dL Assessment and Plan Plan: Assessment: 1. End-stage renal disease maintained on hemodialysis on Saturday schedule via right upper extremity AV fistula. 2. Status post fall with left hip fracture. Orthopedic surgery following. 3. Hypertension with chronic kidney disease. Controlled. 4. Diabetes mellitus. 5. Anemia of chronic kidney disease. Iron replete. Plan: Hemodialysis tomorrow. Add Aranesp.
[2024-10-08 11:30] LABS: Glucose,Whole Blood 74 mg/dL (70-110)
[2024-10-08] MEDS: IV FLUID CONTINUATION 1,000 ML IV ONE (12:10)
[2024-10-08 12:41] LABS: Glucose,Whole Blood 70 mg/dL (70-110)
[2024-10-08] MEDS: DEXTROSE 50% SYRINGE 50 ML IVP STA (12:59)
[2024-10-08] MEDS: ONDANSETRON 4 MG/2 ML VIAL IVP PRN (12:59)
[2024-10-08] MEDS: DEXAMETHASONE SOD PHOSPHATE 4 MG/ML 1 ML VIAL IVP STA (12:59)
[2024-10-08] MEDS ORDERED: PHENYLEPHRINE 10 MG/ML VIAL ONE (13:06)
[2024-10-08] MEDS ORDERED: SUCCINYLCHOLINE CHLORIDE 200 MG/10 ML VIAL IV ONE (13:06)
[2024-10-08] MEDS ORDERED: GLYCOPYRROLATE 0.2 MG/ML 2 ML VIAL ONE (13:06)
[2024-10-08] MEDS ORDERED: ePHEDrine 50 MG/ML 1 ML VIAL ONE (13:06)
[2024-10-08] MEDS ORDERED: PHENYLEPHRINE-0.9% NACL SYG 1,000 MCG/10 ML SYRINGE ONE (13:06)
[2024-10-08] MEDS ORDERED: fentaNYL (PF) 50 MCG/ML 2 ML AMP ONE (13:06)
[2024-10-08] MEDS ORDERED: TRANEXAMIC 1,000 MG/100ML-NACL PREMIX BAG ONE (13:06)
[2024-10-08] MEDS ORDERED: PROPOFOL 10 MG/ML 20 ML VIAL IV ONE (13:06)
[2024-10-08] MEDS ORDERED: ceFAZolin 1 GM/50 ML BAG (PMX) ONE (13:06)
[2024-10-08] MEDS ORDERED: ROCURONIUM 10 MG/ML (5 ML VIAL) IV ONE (13:06)
[2024-10-08] MEDS ORDERED: NEOSTIGMINE 1 MG/ML 10 ML VIAL ONE (13:06)
[2024-10-08] MEDS ORDERED: LIDOCAINE 1% INJ 10MG/ML (20 ML MDV) ONE (13:06)
--- NOTE | 2024-10-08 13:07 | P.PN ---
Subjective Progress Note Date: 10/08/24 79 year old F with PMH of ESRD on HD MWF, diastolic CHF, GERD, HTN, h/o breast CA presents to the ED after a mechanical fall last night resulting in a left IT fracture. [facility] consulted for medical management of this patient. BP on arrival 189/66, HR 68, T 98.9F, RR 18, 97% on RA. CBC, Coag panel, CMP significant for WBC 27.7, RBC 2.79, Hg 8.8, Hct 26.1, Na 130, Cl 89, bicarb 32, BUN 82, Cr 6.64, ALT 58, alb 3.4. 10/07 Currently reports left hip pain 6/10 in severity. She denies any headache, nausea or vomiting, fever or chills, chest pain, SOB, palpitations, dizziness, changes in urination or bowel habits. She denies any syncope or head trauma. States she is wheelchair bound. 10/08 Patient was seen and examined. Plans for OR today. BP improved to 149/66 this morning. CBC and BMP significant for WBC 16.93, RBC 2.37, Hg 7.3, Hct 23, Na 134, Cl 95, BUN 34.2, Cr 3.9, Ca 7.9, AST 36, ALT 47, alb 3.2. Iron studies Fe 128, Ferritin 4407. EKG shows A Fib rate of [address]-T wave changes. General: non toxic, no distress, appears at stated age Derm: warm, dry Head: atraumatic, normocephalic, symmetric Eyes: EOMI, no lid lag, anicteric sclera Mouth: no lip lesion, mucus membranes moist Cardiovascular: S1S2 irreg, no murmur Lungs: CTA bilateral, no rhonchi, no rales , no accessory muscle use Ext: no gross muscle atrophy, no edema, no contractures, RUE fistula Neuro: no focal neuro deficits Psych: Alert, oriented, appropriate affect Based on my assessment of this patient, this patient meets a high complexity level of care. Hypertensive urgency Leukocytosis Normocytic anemia Hyponatremia ESRD on HD MWF Transaminitis Left IT fracture NSQIP scoring puts her at high risk for serious complication including PNA, cardiac, VTA, surgical site infection, readmission, return to OR, and sepsis. Discussed with patient the risks of surgery and she would like to proceed und erstanding the risks above. Leukocytosis is likely reactive and med rec shows she has been on Decadron in the recent past. Anemia with unknown baseline likely superimposed acute blood loss from IT fr acture + AOCD from renal failure. Iron studies as above. Transfuse if Hg < 7. Nephrology added Aranesp. Repeat CBC in the AM. Nephrology on board with plans for HD tomorrow. Orthopedic surgery on board with plans for OR today. CODE STATUS: FULL CODE. DVT Prophylaxis: Eliquis when OK with Ortho. GI Prophylaxis: Designated medical POA if patient is not able to make medical decisions for themselves: I have reviewed the following center lead consultant notes: Nephrology. I have reviewed the results of the following tests: CBC, BMP, Iron studies. I have ordered the following tests: As above. I have discussed the care of this patient with the following independent historian: JAIDEN. I have independently interpreted the following test below: EKG I have discussed the management of this patient with the following physician: Objective - Vital Signs Vital signs: Vital Signs Temp 97.2 F L 10/08/24 12:13 Pulse 79 10/08/24 12:13 Resp 16 10/08/24 12:13 BP 149/66 10/08/24 12:13 Pulse Ox 89 L 10/08/24 12:13 FiO2 Intake & Output 10/07/24 10/08/24 10/08/24 18:59 06:59 18:59 Intake Total 910 Output Total 4400 Balance -3490 Weight 90.718 kg Intake: Intake, IV Titration 240 Amount Sodium Chloride 0.9% 1, 240 000 ml @ 20 mls/hr IV . Q24H [place] Rx#:[id number] Oral 270 Hemodialysis 400 Output: Hemodialysis 2400 Hemodialysis Net Amount 2000 Other: # Voids 0 - Labs CBC & Chem 7: 10/08/24 04:10 10/08/24 04:10 Labs: Abnormal Lab Results - Last 24 Hours (Table) 10/07/24 10/07/24 10/08/24 Range/Units 06:30 20:36 04:10 WBC 16.93 H (4.50-10.00) X 10*3/uL RBC 2.37 L (4.10-5.20) X 10*6/uL Hgb 7.3 L (12.0-15.0) g/dL Hct 23.0 L (37.2-46.3) % MCHC 31.7 L (32.0-37.0) g/dL RDW 15.6 H (11.5-14.5) % Immature Gran # 0.10 H (0.00-0.04) X 10*3/uL Neutrophils # 13.84 H (1.80-7.70) X 10*3/uL Monocytes # 1.27 H (0.20-1.00) X 10*3/uL NRBC/100 WBC Diff 0.04 H (0.00-0.01) X 10*3/uL Sodium (135-145) mmol/L Chloride (96-109) mmol/L BUN (9.0-27.0) mg/dL Creatinine (0.6-1.5) mg/dL Est GFR (CKD-EPI) (>=60) BUN/Creatinine Ratio (12.00-20.00) Ratio POC Glucose (mg/dL) 117 H (70-110) mg/dL Calcium (8.7-10.3) mg/dL TIBC 206 L (228-460) UG/DL % Saturation 62.14 H (12.00-45.00) Transferrin 147.0 L (204.0-354.0) mg/dL Ferritin 4407.0 H (10.0-291.0) ng/mL AST (13-35) U/L ALT (8-44) U/L Total Protein (6.2-8.2) g/dL Albumin (3.8-4.9) g/dL 10/08/24 Range/Units 04:10 WBC (4.50-10.00) X 10*3/uL RBC (4.10-5.20) X 10*6/uL Hgb (12.0-15.0) g/dL Hct (37.2-46.3) % MCHC (32.0-37.0) g/dL RDW (11.5-14.5) % Immature Gran # (0.00-0.04) X 10*3/uL Neutrophils # (1.80-7.70) X 10*3/uL Monocytes # (0.20-1.00) X 10*3/uL NRBC/100 WBC Diff (0.00-0.01) X 10*3/uL Sodium 134 L (135-145) mmol/L Chloride 95 L (96-109) mmol/L BUN 34.2 H (9.0-27.0) mg/dL Creatinine 3.9 H (0.6-1.5) mg/dL Est GFR (CKD-EPI) 11 L (>=60) BUN/Creatinine Ratio 8.77 L (12.00-20.00) Ratio POC Glucose (mg/dL) (70-110) mg/dL Calcium 7.9 L (8.7-10.3) mg/dL TIBC (228-460) UG/DL % Saturation (12.00-45.00) Transferrin (204.0-354.0) mg/dL Ferritin (10.0-291.0) ng/mL AST 36 H (13-35) U/L ALT 47 H (8-44) U/L Total Protein 5.1 L (6.2-8.2) g/dL Albumin 3.2 L (3.8-4.9) g/dL
[2024-10-08] MEDS: SODIUM CHLORIDE 0.9% 100 ML with ceFAZolin 2,000 MG IV ONE (13:11)
[2024-10-08 13:48] LABS: Glucose,Whole Blood 101 mg/dL (70-110)
[2024-10-08 13:58] VITALS: BMI 36.6
--- NOTE | 2024-10-08 14:29 | FL ---
EXAMINATION TYPE: FL guidance operating room, XR Hip Complete LT DATE OF EXAM: 10/08/2024 2:21 PM COMPARISON: Pre Operative Images if available both CT/MRI or plain film CLINICAL INDICATION: Female, 79 years old with history of IM NAIL OF LEFT HIP; TECHNIQUE: FL guidance operating room, XR Hip Complete LT, multiple fluoroscopic images provided for procedure. Total fluoroscopy time: 51 seconds Total submitted images to PACS: 4 DAP: 3.38 mGym2 Gycm2 uGym2 cGycm2 or equivalent. FINDINGS: Fluoroscopic images during internal fixation demonstrate hardware in appropriate position. Hardware a ppears intact. No immediate complication identified. IMPRESSION: 1. No evidence for intraoperative complication. 2. Please see the operative/procedural note for further details. [facility], , 10/08/2024 2:26 PM
--- NOTE | 2024-10-08 14:44 | P.OP ---
Date of Procedure: 10/08/24 Preoperative Diagnosis: Displaced left reverse obliquity intertrochanteric femur fracture Postoperative Diagnosis: Same Procedure(s) Performed: Trochanteric intramedullary nailing left intertrochanteric femur fracture Implants: Tyson gamma 125 degree, 11 mm, short trochanteric nail. Anesthesia: SENA Surgeon: Madhav Caceres Folded Cloth Taper #1: Rubén Cervantes Estimated Blood Loss (ml): 100 Pathology: none sent Condition: stable Indications for Procedure: The patient is an 79-year-old female who presents with left hip pain after a fall out of her wheelchair at the [place] [facility]. She initially was seen at an outside emergency room and was transferred to [facility] for definitive care. Upon evaluation she was noted of a comminuted, displaced left reverse obliquity intertrochanteric femur fracture. A discussion of the risks and benefits of operative intervention was made with the patient. She opted to proceed with surgery. Operative risks include infection, neurovascular injury, development of blood clots, possible development of nonunion/malunion, possible hardware failure and possible need for subsequent procedures was discussed. Informed consent was obtained. Operative Findings: As below Description of Procedure: The patient was brought to the operating room, and after induction general anesthesia was positioned supine on the Jaci table. The left hip fracture was then reduced with longitudinal traction and some internal rotation of the left leg. This was done with the aid of fluoroscopy. I was able to get a good reduction on both the AP and lateral views. The left lower extremity was then prepped and draped in a normal fashion. A 10 cm incision was then made centered over the greater trochanter. This was extended proximally. Skin was incised sharply. Subcutaneous tissues were divided sharply. Electrocautery was used for hemostasis. The gluteus jono fascia was split in line with the muscle fibers. Blunt dissection was then made down to the level of the greater trochanter. With the aid of fluoroscopy a starting awl was placed and the medial tip of the greater trochanter for placement of the guidewire. A ball- tipped guidewire was then inserted. This was verified with fluoroscopy. I then began reaming the shaft up to 12.5 mm. There was some distal chatter. The proximal femur was reamed up to 15.5 mm. A 125 degree, short trochanteric femoral nail was then gently inserted over the guidewire. The guidewire was then removed. This was inserted to the appropriate depth. The reduction was verified on the AP and lateral views and was felt to be adequate. A threaded guidepin was then placed into the centercenter portion of the femoral head and neck to within 5 mm of the articular surface. A triple reamer was used to the appropriate depth within 5 mm of the articular surface. An 80 mm compression screw was inserted over the guidepin and was fully seated. There is good purchase. The proximal locking screw was then placed. Attention was then paid towards distal locking. The alignment guide was utilized. The appropriate drill guide was placed in a static position. A 5.5 mm distal locking screw was then inserted with good purchase. Final fluoroscopic views showed adequate reduction of this comminuted displaced fracture and placement of the implant. The wounds were irrigated normal saline. The fascia was closed with running 0 Vicryl suture. The subcutaneous tissues were reapproximated interrupted 2-0 Vicryl sutures. The skin was reapproximated michele. A sterile dressing was then applied. The patient was then awoken from general anesthesia and transferred to the recovery room in stable condition. Sponge and needle counts were correct in the case. Blood loss was estimated at 100 cc. No complications were incurred. Rubén ALVARADO assisted during the major composes the case to include positioning, exposure, implantation, and closure.
[2024-10-08] MEDS ORDERED: NALOXONE 0.4 MG/ML 1 ML VIAL IV PRN (14:45)
[2024-10-08] MEDS ORDERED: ACETAMINOPHEN TAB 325 MG TAB PO PRN (14:45)
[2024-10-08] MEDS ORDERED: MAGNESIUM HYDROXIDE 2,400 MG/30 ML CUP PO PRN (14:45)
[2024-10-08 15:09] LABS: Glucose,Whole Blood 98 mg/dL (70-110)
[2024-10-08] MEDS: DARBEPOETIN ALFA 40 MCG/0.4 ML SYRINGE SQ SCH (18:05)
[2024-10-08] MEDS: HYDROmorphone 0.5 MG/0.5 ML SYRINGE IVP PRN (18:26)
[2024-10-08 19:14] LABS: Basophils % (A) 0 %; Eosinophils % (A) 0 %; HCT 20.7 % (34.0-46.0); Hypochromasia Slight; Lymphocytes # (A) 0.7 k/uL (1.0-4.8); Lymphocytes % (A) 3 %; MCH 31.8 pg (25.0-35.0); MCHC 32.9 g/dL (31.0-37.0); MCV 96.5 fL (80.0-100.0); Mean Platelet Volume 9.9; Monocytes # (A) 0.7 k/uL (0-1.0); Monocytes % (A) 4 %; Neutrophils # (A) 19.2 k/uL (1.3-7.7); Neutrophils % (A) 93 %; Platelet Count 121 k/uL (150-450); RBC 2.14 m/uL (3.80-5.40); RDW 15.6 % (11.5-15.5); WBC 20.7 k/uL (3.8-10.6)
[2024-10-08 19:17] LABS: HGB 6.8 gm/dL (11.4-16.0)
[2024-10-08] MEDS: APIXABAN 2.5 MG TABLET PO SCH (19:48)
[2024-10-08] MEDS: SENNOSIDES-DOCUSATE SODIUM 1 EACH TAB PO SCH (20:26)
[2024-10-08 20:33] LABS: Glucose,Whole Blood 110 mg/dL (70-110)
[2024-10-09] MEDS: hydrOXYzine pamoate 25 MG CAP PO PRN (03:16)
[2024-10-09 06:09] LABS: Glucose,Whole Blood 106 mg/dL (70-110)
[2024-10-09] MEDS: HYDROmorphone 0.5 MG/0.5 ML SYRINGE IVP PRN (06:40)
--- NOTE | 2024-10-09 10:35 | P.PN ---
Subjective Patient is seen in follow-up for end-stage renal disease. Scheduled for dialysis today. No active complaints. Vital signs are stable. General: No acute distress. HEENT: Head exam is unremarkable. LUNGS: No audible rhonchi or wheezes. HEART: Rate and Rhythm are regular. ABDOMEN: Nontender. EXTREMITITES: Trace edema. Objective - Vital Signs Vital signs: Vital Signs Temp 97.7 F 10/09/24 07:33 Pulse 76 10/09/24 07:33 Resp 17 10/09/24 07:33 BP 149/69 10/09/24 07:33 Pulse Ox 100 10/09/24 07:33 FiO2 Intake & Output 10/08/24 10/09/24 10/09/24 18:59 06:59 18:59 Intake Total 500 281 Output Total 100 Balance 400 281 Weight 90.718 kg Intake: IV 500 Blood Product 281 Rc Pheresis As-3 Unit 281 [id number] Output: Estimated Blood Loss 100 Other: # Voids 1 1 - Labs CBC & Chem 7: 10/08/24 18:09 10/08/24 04:10 Labs: Abnormal Lab Results - Last 24 Hours (Table) 10/08/24 10/08/24 Range/Units 12:33 18:09 WBC 20.7 H (3.8-10.6) k/uL RBC 2.14 L (3.80-5.40) m/uL Hgb 6.8 L* D (11.4-16.0) gm/dL Hct 20.7 L (34.0-46.0) % RDW 15.6 H (11.5-15.5) % Plt Count 121 L (150-450) k/uL Neutrophils # 19.2 H (1.3-7.7) k/uL Lymphocytes # 0.7 L (1.0-4.8) k/uL Crossmatch See Detail Assessment and Plan Plan: Assessment: 1. End-stage renal disease maintained on hemodialysis on Saturday schedule via right upper extremity AV fistula. 2. Status post fall with left hip fracture. Orthopedic surgery following. Status post trochanteric intramedullary nailing of the left femur October 08. 3. Hypertension with chronic kidney disease. Stable. 4. Diabetes mellitus. 5. Anemia of chronic kidney disease. Iron replete. On Aranesp. Also received a unit of blood yesterday. Plan: Hemodialysis today.
[2024-10-09 11:10] LABS: Anisocytosis Slight; HCT 20.8 % (34.0-46.0); MCH 30.6 pg (25.0-35.0); MCHC 33.5 g/dL (31.0-37.0); MCV 91.2 fL (80.0-100.0); Mean Platelet Volume 9.7; Platelet Count 138 k/uL (150-450); RBC 2.28 m/uL (3.80-5.40); RDW 16.4 % (11.5-15.5); WBC 17.2 k/uL (3.8-10.6)
[2024-10-09 11:23] LABS: African American GFR (CKD) 8 (>60 ml/min/1.73 sqM); Anion Gap 12 mmol/L; Blood Urea Nitrogen 62 mg/dL (7-17); Carbon Dioxide 23 mmol/L (22-30); Chloride 96 mmol/L (98-107); Glucose 93 mg/dL (74-99); Non-African American GFR(CKD) 7 (>60 ml/min/1.73 sqM); Sodium 131 mmol/L (137-145)
[2024-10-09 11:24] LABS: Potassium 5.4 mmol/L (3.5-5.1)
[2024-10-09 11:53] LABS: Glucose,Whole Blood 104 mg/dL (70-110)
[2024-10-09 11:55] LABS: Band Neutrophils % 2 %; Eosinophils # (M) 0.17 k/uL (0-0.7); Lymphocytes # (M) 0.52 k/uL (1.0-4.8); Monocytes # (M) 0.69 k/uL (0-1.0); Neutrophils % (M) 90 %; Nucleated Red Blood Cells 0 /100 WBC (0-0); Total Cells Counted 100
--- NOTE | 2024-10-09 12:18 | P.PN ---
Subjective Progress Note Date: 10/09/24 Principal diagnosis: Left hip IT fracture Patient was seen at bedside this morning lying in the semi-recumbent position with dressing present over left hip. Patient says she does have pain to the left hip at this time. Denies pain in any other areas. Patient's hemoglobin was at 6.8 yesterday after surgery. Patient was given 1 unit PRBCs. Hemoglobin came back 7.0 this morning. Patient to receive another unit of PRBCs today. Patient denies any other orthopedic complaints at this time. Objective - Vital Signs Vital signs: Vital Signs Temp 97.7 F 10/09/24 07:33 Pulse 76 10/09/24 07:33 Resp 17 10/09/24 07:33 BP 149/69 10/09/24 07:33 Pulse Ox 100 10/09/24 07:33 FiO2 Intake & Output 10/08/24 10/09/24 10/09/24 18:59 06:59 18:59 Intake Total 500 281 Output Total 100 Balance 400 281 Weight 90.718 kg Intake: IV 500 Blood Product 281 Rc Pheresis As-3 Unit 281 [id number] Output: Estimated Blood Loss 100 Other: Voiding Method Diaper # Voids 1 1 - Exam Inspection: Right upper extremity AV fistula present. Postoperative dressing present over left hip. Appears to be clean, dry, intact. Some swelling present to the left knee. There is some swelling present in the left hip. Sensation: Equal, symmetric, bilat intact throughout extremities on exam. Palpation: There is some moderate tenderness to palpation diffusely throughout the left hip on exam. Nontender to palpation on rest of exam. Range of motion: Patient does have good range of motion throughout bilateral upper extremities on exam and right lower extremity exam. Patient does have limited range of motion left lower extremity on exam due to the injury of the left hip. Motor: 4/5 in all major motor groups in bilateral upper extremities and right lower extremity on exam. Patient is able to wiggle the toes in the left foot. Limited motor exam rest of the left lower extremity due to the recent surgery. Special test: Negative Homans bilaterally. Neurovascular: Radial pulse intact, 2+ bilaterally. Cap refill under 3 seconds in digits of upper extremities. DP pulses palpable bilaterally - Labs CBC & Chem 7: 10/09/24 10:30 10/09/24 10:30 Labs: Abnormal Lab Results - Last 24 Hours (Table) 10/08/24 10/08/24 10/09/24 Range/Units 12:33 18:09 10:30 WBC 20.7 H 17.2 H (3.8-10.6) k/uL RBC 2.14 L 2.28 L (3.80-5.40) m/uL Hgb 6.8 L* D 7.0 L (11.4-16.0) gm/dL Hct 20.7 L 20.8 L (34.0-46.0) % RDW 15.6 H 16.4 H (11.5-15.5) % Plt Count 121 L 138 L (150-450) k/uL Neutrophils # 19.2 H (1.3-7.7) k/uL Lymphocytes # 0.7 L (1.0-4.8) k/uL Sodium (137-145) mmol/L Potassium (3.5-5.1) mmol/L Chloride (98-107) mmol/L BUN (7-17) mg/dL Creatinine (0.52-1.04) mg/dL Calcium (8.4-10.2) mg/dL Crossmatch See Detail 10/09/24 Range/Units 10:30 WBC (3.8-10.6) k/uL RBC (3.80-5.40) m/uL Hgb (11.4-16.0) gm/dL Hct (34.0-46.0) % RDW (11.5-15.5) % Plt Count (150-450) k/uL Neutrophils # (1.3-7.7) k/uL Lymphocytes # (1.0-4.8) k/uL Sodium 131 L (137-145) mmol/L Potassium 5.4 H (3.5-5.1) mmol/L Chloride 96 L (98-107) mmol/L BUN 62 H (7-17) mg/dL Creatinine 5.57 H (0.52-1.04) mg/dL Calcium 8.0 L (8.4-10.2) mg/dL Crossmatch Assessment and Plan Assessment: 1. Left hip IT fracture status post fall 2. End-stage renal disease -Postop day 1 status post left hip IM nail Plan: 1. Left hip IT fracture status post fall -surgery performed yesterday , , 10/08/2024left hip IM nail. Hemoglobin 7.0. I did order 1 unit PRBCs. Redraw CBC this evening. Pain medication as needed. Resume Eliquis this evening. Likely discharge back to extended-care facility tomorrow, 10/10/2024 versus 10/12/2024. Dressing appears to be clean, dry, intact. Assess dressing daily. We will continue to follow patient during stay in hospital 2. Appreciate medical and nephrology management 3. Pain management - norco; tylenol 4. DVT prophylaxis -resume Eliquis this evening 5. GI prophylaxis -senna 6. PT/OT -weightbearing only during transfers from bed to wheelchair and back 7. Encourage incentive spirometer use Time with Patient: Less than 30
--- NOTE | 2024-10-09 16:28 | P.PN ---
Subjective Progress Note Date: 10/09/24 79 year old F with PMH of ESRD on HD MWF, diastolic CHF, GERD, HTN, h/o breast CA presents to the ED after a mechanical fall last night resulting in a left IT fracture. [facility] consulted for medical management of this patient. BP on arrival 189/66, HR 68, T 98.9F, RR 18, 97% on RA. CBC, Coag panel, CMP significant for WBC 27.7, RBC 2.79, Hg 8.8, Hct 26.1, Na 130, Cl 89, bicarb 32, BUN 82, Cr 6.64, ALT 58, alb 3.4. 10/07 Currently reports left hip pain 6/10 in severity. She denies any headache, nausea or vomiting, fever or chills, chest pain, SOB, palpitations, dizziness, changes in urination or bowel habits. She denies any syncope or head trauma. States she is wheelchair bound. 10/08 Patient was seen and examined. Plans for OR today. BP improved to 149/66 this morning. CBC and BMP significant for WBC 16.93, RBC 2.37, Hg 7.3, Hct 23, Na 134, Cl 95, BUN 34.2, Cr 3.9, Ca 7.9, AST 36, ALT 47, alb 3.2. Iron studies Fe 128, Ferritin 4407. EKG shows A Fib rate of [address]-T wave changes. 10/09 Patient was seen and examined. Underwent trochanteric intramedullary nailing left intertrochanteric femur fracture with Dr. Caceres on 10/09. Post operatively Hg was 6.8 requiring 1 unit PRBC. She reports well controlled pain. CBC and BMP significant for WBC 17.2, RBC 2.28, Hg 7, Hct 20.8, Plt 138, Na 131, K 5.4, Cl 96, BUN 62, Cr 5.57, Ca 8. General: non toxic, no distress, appears at stated age Derm: warm, dry Head: atraumatic, normocephalic, symmetric Eyes: EOMI, no lid lag, anicteric sclera Mouth: no lip lesion, mucus membranes moist Cardiovascular: S1S2 irreg, no murmur Lungs: CTA bilateral, no rhonchi, no rales , no accessory muscle use Ext: no gross muscle atrophy, no edema, no contractures, RUE fistula Neuro: no focal neuro deficits Psych: Alert, oriented, appropriate affect Based on my assessment of this patient, this patient meets a high complexity level of care. Hypertensive urgency Leukocytosis Normocytic anemia Hyperkalemia Hyponatremia ESRD on HD MWF Transaminitis Left IT fracture NSQIP scoring puts her at high risk for serious complication including PNA, ca rdiac, VTA, surgical site infection, readmission, return to OR, and sepsis. Discussed with patient the risks of surgery and she would like to proceed understanding the risks above. Leukocytosis is likely reactive and med rec shows she has been on Decadron in the recent past. Anemia with unknown baseline likely superimposed acute blood loss from IT fracture + AOCD from renal failure. Iron studies as above. Transfuse if Hg < 7. Nephrology added Aranesp. Status post 1 unit PRBC. Repeat CBC in the AM. Blood specimen is hemolyzed. Repeat BMP in the AM. Nephrology on board with plans for HD today. Orthopedic surgery on board. CODE STATUS: FULL CODE. DVT Prophylaxis: Eliquis GI Prophylaxis: Designated medical POA if patient is not able to make medical decisions for themselves: I have reviewed the following art sales consultant notes: Nephrology, Ortho. I have reviewed the results of the following tests: CBC, BMP I have ordered the following tests: CBC and BMP in the AM. I have discussed the care of this patient with the following independent historian: JAIDEN. I have independently interpreted the following test below: I have discussed the management of this patient with the following physician: Rubén ALVARADO Objective - Vital Signs Vital signs: Vital Signs Temp 98.3 F 10/09/24 14:52 Pulse 88 10/09/24 14:52 Resp 17 10/09/24 14:52 BP 115/55 10/09/24 14:52 Pulse Ox 84 L 10/09/24 14:52 FiO2 Intake & Output 10/08/24 10/09/24 10/09/24 18:59 06:59 18:59 Intake Total 500 281 Output Total 100 Balance 400 281 Weight 90.718 kg Intake: IV 500 Blood Product 281 Rc Pheresis As-3 Unit 281 [id number] Output: Estimated Blood Loss 100 Other: Voiding Method Diaper # Voids 1 1 - Labs CBC & Chem 7: 10/09/24 10:30 10/09/24 10:30 Labs: Abnormal Lab Results - Last 24 Hours (Table) 10/08/24 10/08/24 10/09/24 Range/Units 12:33 18:09 10:30 WBC 20.7 H 17.2 H (3.8-10.6) k/uL RBC 2.14 L 2.28 L (3.80-5.40) m/uL Hgb 6.8 L* D 7.0 L (11.4-16.0) gm/dL Hct 20.7 L 20.8 L (34.0-46.0) % RDW 15.6 H 16.4 H (11.5-15.5) % Plt Count 121 L 138 L (150-450) k/uL Neutrophils # 19.2 H (1.3-7.7) k/uL Neutrophils # (Manual) 15.80 H (1.3-7.7) k/uL Lymphocytes # 0.7 L (1.0-4.8) k/uL Lymphocytes # (Manual) 0.52 L (1.0-4.8) k/uL Sodium (137-145) mmol/L Potassium (3.5-5.1) mmol/L Chloride (98-107) mmol/L BUN (7-17) mg/dL Creatinine (0.52-1.04) mg/dL Calcium (8.4-10.2) mg/dL Crossmatch See Detail 10/09/24 Range/Units 10:30 WBC (3.8-10.6) k/uL RBC (3.80-5.40) m/uL Hgb (11.4-16.0) gm/dL Hct (34.0-46.0) % RDW (11.5-15.5) % Plt Count (150-450) k/uL Neutrophils # (1.3-7.7) k/uL Neutrophils # (Manual) (1.3-7.7) k/uL Lymphocytes # (1.0-4.8) k/uL Lymphocytes # (Manual) (1.0-4.8) k/uL Sodium 131 L (137-145) mmol/L Potassium 5.4 H (3.5-5.1) mmol/L Chloride 96 L (98-107) mmol/L BUN 62 H (7-17) mg/dL Creatinine 5.57 H (0.52-1.04) mg/dL Calcium 8.0 L (8.4-10.2) mg/dL Crossmatch
[2024-10-09 16:54] LABS: Glucose,Whole Blood 101 mg/dL (70-110)
[2024-10-09 20:24] LABS: Glucose,Whole Blood 121 mg/dL (70-110)
[2024-10-09 22:03] LABS: Basophils % (A) 0 %; Eosinophils # (A) 0.1 k/uL (0-0.7); Eosinophils % (A) 1 %; HCT 25.3 % (34.0-46.0); HGB 8.4 gm/dL (11.4-16.0); Hypochromasia Slight; Lymphocytes % (A) 8 %; MCHC 33.1 g/dL (31.0-37.0); MCV 93.7 fL (80.0-100.0); Mean Platelet Volume 8.3; Monocytes % (A) 8 %; Neutrophils # (A) 10.1 k/uL (1.3-7.7); Neutrophils % (A) 81 %; Platelet Count 114 k/uL (150-450); RDW 15.5 % (11.5-15.5); WBC 12.5 k/uL (3.8-10.6)
--- NOTE | 2024-10-09 22:59 | CT ---
EXAMINATION TYPE: CT brain wo con DATE OF EXAM: 10/09/2024 10:10 PM COMPARISON: 07/02/2020 CLINICAL INDICATION: Female, 79 years old with history of altered mental status, AMS TECHNIQUE: CT of the brain is performed utilizing 3 mm thick sections through the posterior fossa and 3 mm thick sections through the remaining calvarium. Study is performed within 24 hours of arrival to the hospital. Contrast used: mL of , (none if empty) CT DLP: 1169.1 mGycm, Automated exposure control for dose reduction was used. FINDINGS: No abnormal hyperdensity is present to suggest an acute intracranial hemorrhage. No mass lesion is evident. No acute infarcts are evident. Periventricular white matter hypodensity is present, likely on the bas is of chronic white matter ischemic change. Ventricles and sulci are prominent for the patient age. Paranasal sinuses and mastoid air cells within the [id number] are clear. No significant interval change. IMPRESSION: 1. No acute intracranial process. Follow up MRI can be performed as clinically indicated. 2. Atrophy with chronic appearing periventricular white matter ischemic changes. [facility], , 10/09/2024 10:56 PM
[2024-10-10 06:16] LABS: Glucose,Whole Blood 114 mg/dL (70-110)
[2024-10-10 06:17] LABS: Anisocytosis Slight; HCT 25.5 % (34.0-46.0); HGB 8.7 gm/dL (11.4-16.0); MCH 31.2 pg (25.0-35.0); MCHC 34.2 g/dL (31.0-37.0); MCV 91.3 fL (80.0-100.0); Mean Platelet Volume 9.3; Platelet Count 153 k/uL (150-450); Poikilocytosis Slight; RBC 2.79 m/uL (3.80-5.40); RDW 16.5 % (11.5-15.5); WBC 16.6 k/uL (3.8-10.6)
[2024-10-10 06:41] LABS: African American GFR (CKD) 13 (>60 ml/min/1.73 sqM); Anion Gap 10 mmol/L; Blood Urea Nitrogen 36 mg/dL (7-17); Calcium 8.1 mg/dL (8.4-10.2); Carbon Dioxide 27 mmol/L (22-30); Chloride 94 mmol/L (98-107); Glucose 92 mg/dL (74-99); Non-African American GFR(CKD) 11 (>60 ml/min/1.73 sqM); Potassium 4.2 mmol/L (3.5-5.1); Sodium 131 mmol/L (137-145)
[2024-10-10 07:45] VITALS: RESP 18; TEMP 97.8
[2024-10-10 08:18] VITALS: BP 101/63; PULSE 92
--- NOTE | 2024-10-10 08:40 | P.PN ---
Subjective Progress Note Date: 10/10/24 Principal diagnosis: Left hip IT fracture Patient was seen at bedside this morning lying in the semi-recumbent position with dressing present over left hip. Patient says she does have pain to the left hip at this time. Denies pain in any other areas. Patient's hemoglobin was at 8.7. Patient denies any other orthopedic complaints at this time. Objective - Vital Signs Vital signs: Vital Signs Temp 97.8 F 10/10/24 07:22 Pulse 92 10/10/24 08:17 Resp 18 10/10/24 08:17 BP 101/63 10/10/24 08:17 Pulse Ox 90 L 10/10/24 07:22 FiO2 Intake & Output 10/09/24 10/10/24 10/10/24 18:59 06:59 18:59 Intake Total 400 310 Output Total 3600 Balance -3200 310 Intake: Blood Product 0 310 Rc Irr As1 Unit 0 310 [id number] Hemodialysis 400 Output: Hemodialysis 2000 Hemodialysis Net Amount 1600 Other: Voiding Method Diaper Diaper - Exam Inspection: Right upper extremity AV fistula present. Postoperative dressing taken down. New dressings placed over incision. Incision appears to be healing well. L[place] well aligned and intact. There is some swelling present in the left hip. Sensation: Equal, symmetric, bilat intact throughout extremities on exam. Palpation: There is some moderate tenderness to palpation diffusely throughout the left hip on exam. Nontender to palpation on rest of exam. Range of motion: Patient does have good range of motion throughout bilateral upper extremities on exam and right lower extremity exam. Patient does have limited range of motion left lower extremity on exam due to the injury of the left hip. Motor: 4/5 in all major motor groups in bilateral upper extremities and right lower extremity on exam. Patient is able to wiggle the toes in the left foot. Limited motor exam rest of the left lower extremity due to the recent surgery. Special test: Negative Homans bilaterally. Neurovascular: Radial pulse intact, 2+ bilaterally. Cap refill under 3 seconds in digits of upper extremities. DP pulses palpable bilaterally - Labs CBC & Chem 7: 10/10/24 05:47 10/10/24 05:47 Labs: Abnormal Lab Results - Last 24 Hours (Table) 10/08/24 10/09/24 10/09/24 Range/Units 12:33 10:30 10:30 WBC 17.2 H (3.8-10.6) k/uL RBC 2.28 L (3.80-5.40) m/uL Hgb 7.0 L (11.4-16.0) gm/dL Hct 20.8 L (34.0-46.0) % RDW 16.4 H (11.5-15.5) % Plt Count 138 L (150-450) k/uL Neutrophils # (1.3-7.7) k/uL Neutrophils # (Manual) 15.80 H (1.3-7.7) k/uL Lymphocytes # (Manual) 0.52 L (1.0-4.8) k/uL Sodium 131 L (137-145) mmol/L Potassium 5.4 H (3.5-5.1) mmol/L Chloride 96 L (98-107) mmol/L BUN 62 H (7-17) mg/dL Creatinine 5.57 H (0.52-1.04) mg/dL POC Glucose (mg/dL) (70-110) mg/dL Calcium 8.0 L (8.4-10.2) mg/dL Crossmatch See Detail 10/09/24 10/09/24 10/10/24 Range/Units 20:22 21:06 05:47 WBC 12.5 H 16.6 H (3.8-10.6) k/uL RBC 2.70 L 2.79 L (3.80-5.40) m/uL Hgb 8.4 L 8.7 L (11.4-16.0) gm/dL Hct 25.3 L 25.5 L (34.0-46.0) % RDW 16.5 H (11.5-15.5) % Plt Count 114 L (150-450) k/uL Neutrophils # 10.1 H (1.3-7.7) k/uL Neutrophils # (Manual) (1.3-7.7) k/uL Lymphocytes # (Manual) (1.0-4.8) k/uL Sodium (137-145) mmol/L Potassium (3.5-5.1) mmol/L Chloride (98-107) mmol/L BUN (7-17) mg/dL Creatinine (0.52-1.04) mg/dL POC Glucose (mg/dL) 121 H (70-110) mg/dL Calcium (8.4-10.2) mg/dL Crossmatch 10/10/24 10/10/24 Range/Units 05:47 06:14 WBC (3.8-10.6) k/uL RBC (3.80-5.40) m/uL Hgb (11.4-16.0) gm/dL Hct (34.0-46.0) % RDW (11.5-15.5) % Plt Count (150-450) k/uL Neutrophils # (1.3-7.7) k/uL Neutrophils # (Manual) (1.3-7.7) k/uL Lymphocytes # (Manual) (1.0-4.8) k/uL Sodium 131 L (137-145) mmol/L Potassium (3.5-5.1) mmol/L Chloride 94 L (98-107) mmol/L BUN 36 H (7-17) mg/dL Creatinine 3.72 H (0.52-1.04) mg/dL POC Glucose (mg/dL) 114 H (70-110) mg/dL Calcium 8.1 L (8.4-10.2) mg/dL Crossmatch Assessment and Plan Assessment: 1. Left hip IT fracture status post fall 2. End-stage renal disease -Postop day 2 status post left hip IM nail Plan: 1. Left hip IT fracture status post fall -surgery performed , 10/08/2024left hip IM nail. Hemoglobin 8.7. Pain medication as needed. Resume Eliquis. Likely discharge back to extended-care facility tomorrow, 10/10/2024. Dressing changed at bedside this morning. [place] well aligned and intact. 2. Appreciate medical and nephrology management 3. Pain management - norco; tylenol 4. DVT prophylaxis -resume Eliquis today 5. GI prophylaxis -senna 6. PT/OT -weightbearing only during transfers from bed to wheelchair and back 7. Encourage incentive spirometer use 8. Discharge planning -discharge back to extended-care facility today. Time with Patient: Less than 30
--- NOTE | 2024-10-10 08:42 | P.DS ---
Providers Date of admission: 10/07/24 04:54 Expected date of discharge: 10/10/24 Attending physician: Madhav Caceres Consults: 10/07/24 04:50 Consult Physician Routine Consulting Provider: Jennifer Green Consult Reason/Comments: medmanage Do you want consulting provider notified?: Yes Consult Physician Routine Consulting Provider: Derrell Lucas Consult Reason/Comments: CKD Do you want consulting provider notified?: Yes 10/07/24 11:11 Consult Physician Routine Consulting Provider: Madhav Caceres Consult Reason/Comments: hip fracture Do you want consulting provider notified?: Yes Primary care physician: Robin Sosa Hospital Course: Date of admission: 10/07/2024 Date of discharge: 10/10/2024 Admission diagnosis: Left hip IT fracture Discharge diagnosis: Same Attending physician: Dr. Caceres Surgical procedures: Left hip IM nail Brief history: Patient is a 79-year-old female with a history of left hip IT fracture. At this point patient has failed conservative treatment measures and has opted to proceed with a elective left hip IM nail. Hospital course: Details of patient's surgery can be found in operative report. Patient tolerated the procedure well and was subsequently transported to orthopedic floor. Patient's orthopeidc and medical care was provided daily. Patient had daily laboratory tests performed for evaluation of overall blood counts. Patient had daily physical therapy to include strengthening range of motion as well as education with walker ambulation. Patient was treated with Eliquis for their postoperative DVT prophylaxis during their inpatient stay. Patient was noted to have a relatively uneventful postoperative course. Patient reported satisfactory pain control with oral pain medications by postoperative day 2. Patient showed satisfactory progress with physical therapy. Patient moved steadily through the program and had no difficulty meeting the goals by postoperative day 2. Given patient's otherwise satisfactory course and having met physical therapy goals, plan is to discharge patient to extended-care facility on postoperative day 2. Discharge condition/disposition: Patient will be discharged to extended-care facility in stable condition. Discharge medications: Instructions are given on resumption of patient's normal daily medications per primary care recommendation, in addition patient will be prescribed [place]. Discharge instructions: 1. Wound care and infection precautions, keep incision dry and covered while showering, no lotions, creams, moisturizers. No soaking, tubs, pools, hottubs. Do not scrub over the incision. 2. Weight-bear as tolerated only to transfer from bed to wheelchair and back. 3. Ice and elevate when necessary. Do not exceed 20 minutes per hour with ice pack. 4. Utilize compression sleeve until seen at first follow up appointment. 5. Nursing care. 6. Physical therapy 7. Pain meds and anticoagulants per prescription. 8. Pain medication has potential to cause constipation. Increase oral fluid and fiber intake. Contact primary care provider if you have not had a bowel movement within 48 hours after discharge 9. No anti-inflammatory medication until discussed at first post operative visit, this including Motrin, Aleve, Mobic, Diclofenac. 10. Follow up in office at 2 weeks postop with Dillon Gore PA-C / Rubén Cervantes PA-C 11. Follow up with your primary care doctor 7-10 days after discharge. 12. Contact [facility] with any questions, . Assessment: Left hip IT fracture Procedures: Left hip IM nail Patient Condition at Discharge: Fair Plan - Discharge Summary Discharge Rx Participant: No New Discharge Prescriptions: New HYDROcodone/APAP 7.5-325MG [[place] 7.5-325] 1 tab PO Q6HR PRN #18 tab PRN Reason: Pain Continue Apixaban [Eliquis] 2.5 mg PO BID No Action Acetaminophen Tab [Tylenol] 650 mg PO Q6H PRN MDD 3000mg PRN Reason: general discomfort Sevelamer [Renvela] 1,600 mg PO TID Thiamine [Vitamin B-1] 100 mg PO DAILY Ondansetron [Zofran] 4 mg PO Q6H PRN PRN Reason: Nausea Loperamide [Imodium] 2 mg PO Q8H PRN PRN Reason: Diarrhea hydrALAZINE HCL [Apresoline] 50 mg PO TID Multivitamins, Thera [Multivitamin (formulary)] 1 tab PO DAILY Losartan Potassium 50 mg PO BID bisacodyL [Dulcolax] 10 mg RECTAL DAILY PRN PRN Reason: Constipation carvediloL [Coreg] 12.5 mg PO BID dexAMETHasone [Decadron] 6 mg PO DAILY Lidocaine-Prilocaine Cream [Emla Cream 2.5%/2.5%] 1 applic TOPICAL MOWEFR Sevelamer [Renvela] 800 mg PO DIRECTED PRN PRN Reason: snacks Sodium Chloride [Saline Nasal Mist] 1 spray EA NOSTRIL Q2H PRN PRN Reason: Nasal Congestion Omeprazole 20 mg PO DAILY Ferrous Sulfate [Iron (65 MG Elemental)] 325 mg PO DAILY Ergocalciferol (Vitamin D2) [Drisdol (50,000 Iu)] 1,250 mcg PO TH Atorvastatin [Lipitor] 80 mg PO HS L.acidoph,Paracasei, B.lactis [Probiotic] 1 cap PO DAILY Acetaminophen [Tylenol 8 Hour] 650 mg PO BID Benzonatate [Tessalon Perles] 100 mg PO TID guaiFENesin-DM 100-10MG/5ML [Robitussin DM] 10 ml PO Q6H PRN PRN Reason: Cough HYDROcodone/APAP 5-325MG [[place] 5-325] 1 tab PO Q6H PRN PRN Reason: Pain Melatonin 5 mg PO HS traZODone HCL [Desyrel] 75 mg PO HS Discharge Medication List Acetaminophen Tab [Tylenol] 650 mg PO Q6H PRN MDD 3000mg 08/13/18 [History] Sevelamer [Renvela] 1,600 mg PO TID 06/19/20 [History] Apixaban [Eliquis] 2.5 mg PO BID 07/01/20 [History] Atorvastatin [Lipitor] 80 mg PO HS 12/04/22 [History] Ergocalciferol (Vitamin D2) [Drisdol (50,000 Iu)] 1,250 mcg PO TH 12/04/22 [History] Ferrous Sulfate [Iron (65 MG Elemental)] 325 mg PO DAILY 12/04/22 [History] Loperamide [Imodium] 2 mg PO Q8H PRN 12/04/22 [History] Omeprazole 20 mg PO DAILY 12/04/22 [History] Ondansetron [Zofran] 4 mg PO Q6H PRN 12/04/22 [History] Thiamine [Vitamin B-1] 100 mg PO DAILY 12/04/22 [History] L.acidoph,Paracasei, B.lactis [Probiotic] 1 cap PO DAILY 02/07/23 [History] Losartan Potassium 50 mg PO BID 02/07/23 [History] Multivitamins, Thera [Multivitamin (formulary)] 1 tab PO DAILY 02/07/23 [History] hydrALAZINE HCL [Apresoline] 50 mg PO TID 02/07/23 [History] Acetaminophen [Tylenol 8 Hour] 650 mg PO BID 10/07/24 [History] Benzonatate [Tessalon Perles] 100 mg PO TID 10/07/24 [History] HYDROcodone/APAP 5-325MG [[place] 5-325] 1 tab PO Q6H PRN 10/07/24 [History] Lidocaine-Prilocaine Cream [Emla Cream 2.5%/2.5%] 1 applic TOPICAL MOWEFR 10/07/24 [History] Melatonin 5 mg PO HS 10/07/24 [History] Sevelamer [Renvela] 800 mg PO DIRECTED PRN 10/07/24 [History] Sodium Chloride [Saline Nasal Mist] 1 spray EA NOSTRIL Q2H PRN 10/07/24 [History] bisacodyL [Dulcolax] 10 mg RECTAL DAILY PRN 10/07/24 [History] carvediloL [Coreg] 12.5 mg PO BID 10/07/24 [History] dexAMETHasone [Decadron] 6 mg PO DAILY 10/07/24 [History] guaiFENesin-DM 100-10MG/5ML [Robitussin DM] 10 ml PO Q6H PRN 10/07/24 [History] traZODone HCL [Desyrel] 75 mg PO HS 10/07/24 [History] HYDROcodone/APAP 7.5-325MG [[place] 7.5-325] 1 tab PO Q6HR PRN #18 tab 10/10/24 [Rx] Follow up Appointment(s)/Referral(s): Robin Sosa MD [Primary Care Provider] - 1-2 days Rubén Cervantes PAC [PHYSICIAN LAMP REPLACER] - 2 Weeks Activity/Diet/Wound Care/Special Instructions: Discharge instructions: 1. Wound care and infection precautions, keep incision dry and covered while showering, no lotions, creams, moisturizers. No soaking, tubs, pools, hottubs. Do not scrub over the incision. 2. Weight-bear as tolerated only to transfer from bed to wheelchair and back. 3. Ice and elevate when necessary. Do not exceed 20 minutes per hour with ice pack. 4. Utilize compression sleeve until seen at first follow up appointment. 5. Nursing care. 6. Physical therapy 7. Pain meds and anticoagulants per prescription. 8. Pain medication has potential to cause constipation. Increase oral fluid and fiber intake. Contact primary care provider if you have not had a bowel movement within 48 hours after discharge 9. No anti-inflammatory medication until discussed at first post operative visit, this including Motrin, Aleve, Mobic, Diclofenac. 10. Follow up in office at 2 weeks postop with Dillon Gore PA-C / Rubén Cervantes PA-C 11. Follow up with your primary care doctor 7-10 days after discharge. 12. Contact [facility] with any questions, . Discharge Disposition: TRANSFER TO SNF/ECF
--- NOTE | 2024-10-10 10:19 | P.PN ---
Subjective Progress Note Date: 10/10/24 79 year old F with PMH of ESRD on HD MWF, diastolic CHF, GERD, HTN, h/o breast CA presents to the ED after a mechanical fall last night resulting in a left IT fracture. [facility] consulted for medical management of this patient. BP on arrival 189/66, HR 68, T 98.9F, RR 18, 97% on RA. CBC, Coag panel, CMP significant for WBC 27.7, RBC 2.79, Hg 8.8, Hct 26.1, Na 130, Cl 89, bicarb 32, BUN 82, Cr 6.64, ALT 58, alb 3.4. 10/07 Currently reports left hip pain 6/10 in severity. She denies any headache, nausea or vomiting, fever or chills, chest pain, SOB, palpitations, dizziness, changes in urination or bowel habits. She denies any syncope or head trauma. States she is wheelchair bound. 10/08 Patient was seen and examined. Plans for OR today. BP improved to 149/66 this morning. CBC and BMP significant for WBC 16.93, RBC 2.37, Hg 7.3, Hct 23, Na 134, Cl 95, BUN 34.2, Cr 3.9, Ca 7.9, AST 36, ALT 47, alb 3.2. Iron studies Fe 128, Ferritin 4407. EKG shows A Fib rate of [address]-T wave changes. 10/09 Patient was seen and examined. Underwent trochanteric intramedullary nailing left intertrochanteric femur fracture with Dr. Caceres on 10/09. Post operatively Hg was 6.8 requiring 1 unit PRBC. She reports well controlled pain. CBC and BMP significant for WBC 17.2, RBC 2.28, Hg 7, Hct 20.8, Plt 138, Na 131, K 5.4, Cl 96, BUN 62, Cr 5.57, Ca 8. 10/10 Patient was seen and examined. No complaints. Additional 1 unit PRBC ordered yesterday for Hg of 7. CBC and BMP significant for WBC 16.6, RBC 2.79, Hg 8.7, Hct 25.5, Na 131, Cl 94, BUN 36, Cr 3.72, Ca 8.1. General: non toxic, no distress, appears at stated age Derm: warm, dry Head: atraumatic, normocephalic, symmetric Eyes: EOMI, no lid lag, anicteric sclera Mouth: no lip lesion, mucus membranes moist Cardiovascular: S1S2 irreg, no murmur Lungs: CTA bilateral, no rhonchi, no rales , no accessory muscle use Ext: no gross muscle atrophy, no edema, no contractures, RUE fistula Neuro: no focal neuro deficits Psych: Alert, oriented, appropriate affect Based on my assessment of this patient, this patient meets a high complexity level of care. Hypertension Leukocytosis Normocytic anemia Hyponatremia ESRD on HD MWF Transaminitis Left IT fracture Resolved: Hypertensive urgency, HyperK NSQIP scoring puts her at high risk for serious complication including PNA, cardiac, VTA, surgical site infection, readmission, return to OR, and sepsis. Discussed with patient the risks of surgery and she would like to proceed understanding the risks above. Leukocytosis is likely reactive and med rec shows she has been on Decadron in the recent past. Anemia with unknown baseline likely superimposed acute blood loss from IT fracture + AOCD from renal failure. Iron studies as above. Transfuse if Hg < 7. Nephrology added Aranesp. Status post 2 unit PRBC. Recommend repeat CBC within 3 days of discharge. Nephrology on board with plans for HD MWF schedule. Orthopedic surgery on board. Patient medically stable for discharge to [facility]. Would recommend repeat CBC within 3 days of discharge and monitoring of BP. CODE STATUS: FULL CODE. DVT Prophylaxis: Eliquis GI Prophylaxis: Designated medical POA if patient is not able to make medical decisions for themselves: I have reviewed the following actuarial consultant notes: Ortho. I have reviewed the results of the following tests: CBC, BMP I have ordered the following tests: I have discussed the care of this patient with the following independent historian: I have independently interpreted the following test below: I have discussed the management of this patient with the following physician: Objective - Vital Signs Vital signs: Vital Signs Temp 97.8 F 10/10/24 07:22 Pulse 92 10/10/24 08:17 Resp 18 10/10/24 08:17 BP 101/63 10/10/24 08:17 Pulse Ox 90 L 10/10/24 07:22 FiO2 Intake & Output 10/09/24 10/10/24 10/10/24 18:59 06:59 18:59 Intake Total 400 310 Output Total 3600 Balance -3200 310 Intake: Blood Product 0 310 Rc Irr As1 Unit 0 310 [id number] Hemodialysis 400 Output: Hemodialysis 2000 Hemodialysis Net Amount 1600 Other: Voiding Method Diaper Diaper - Labs CBC & Chem 7: 10/10/24 05:47 10/10/24 05:47 Labs: Abnormal Lab Results - Last 24 Hours (Table) 10/08/24 10/09/24 10/09/24 Range/Units 12:33 10:30 10:30 WBC 17.2 H (3.8-10.6) k/uL RBC 2.28 L (3.80-5.40) m/uL Hgb 7.0 L (11.4-16.0) gm/dL Hct 20.8 L (34.0-46.0) % RDW 16.4 H (11.5-15.5) % Plt Count 138 L (150-450) k/uL Neutrophils # (1.3-7.7) k/uL Neutrophils # (Manual) 15.80 H (1.3-7.7) k/uL Lymphocytes # (Manual) 0.52 L (1.0-4.8) k/uL Sodium 131 L (137-145) mmol/L Potassium 5.4 H (3.5-5.1) mmol/L Chloride 96 L (98-107) mmol/L BUN 62 H (7-17) mg/dL Creatinine 5.57 H (0.52-1.04) mg/dL POC Glucose (mg/dL) (70-110) mg/dL Calcium 8.0 L (8.4-10.2) mg/dL Crossmatch See Detail 10/09/24 10/09/24 10/10/24 Range/Units 20:22 21:06 05:47 WBC 12.5 H 16.6 H (3.8-10.6) k/uL RBC 2.70 L 2.79 L (3.80-5.40) m/uL Hgb 8.4 L 8.7 L (11.4-16.0) gm/dL Hct 25.3 L 25.5 L (34.0-46.0) % RDW 16.5 H (11.5-15.5) % Plt Count 114 L (150-450) k/uL Neutrophils # 10.1 H (1.3-7.7) k/uL Neutrophils # (Manual) (1.3-7.7) k/uL Lymphocytes # (Manual) (1.0-4.8) k/uL Sodium (137-145) mmol/L Potassium (3.5-5.1) mmol/L Chloride (98-107) mmol/L BUN (7-17) mg/dL Creatinine (0.52-1.04) mg/dL POC Glucose (mg/dL) 121 H (70-110) mg/dL Calcium (8.4-10.2) mg/dL Crossmatch 10/10/24 10/10/24 Range/Units 05:47 06:14 WBC (3.8-10.6) k/uL RBC (3.80-5.40) m/uL Hgb (11.4-16.0) gm/dL Hct (34.0-46.0) % RDW (11.5-15.5) % Plt Count (150-450) k/uL Neutrophils # (1.3-7.7) k/uL Neutrophils # (Manual) (1.3-7.7) k/uL Lymphocytes # (Manual) (1.0-4.8) k/uL Sodium 131 L (137-145) mmol/L Potassium (3.5-5.1) mmol/L Chloride 94 L (98-107) mmol/L BUN 36 H (7-17) mg/dL Creatinine 3.72 H (0.52-1.04) mg/dL POC Glucose (mg/dL) 114 H (70-110) mg/dL Calcium 8.1 L (8.4-10.2) mg/dL Crossmatch
--- NOTE | 2024-10-10 10:29 | P.PN ---
Subjective Patient is seen in follow-up for end-stage renal disease. No problems with dialysis yesterday. Blood pressure running on the lower end. Vital signs are stable. General: No acute distress. HEENT: Head exam is unremarkable. LUNGS: No audible rhonchi or wheezes. HEART: Rate and Rhythm are regular. ABDOMEN: Nontender. EXTREMITITES: Trace edema. Objective - Vital Signs Vital signs: Vital Signs Temp 97.8 F 10/10/24 07:22 Pulse 92 10/10/24 08:17 Resp 18 10/10/24 08:17 BP 101/63 10/10/24 08:17 Pulse Ox 90 L 10/10/24 07:22 FiO2 Intake & Output 10/09/24 10/10/24 10/10/24 18:59 06:59 18:59 Intake Total 400 310 Output Total 3600 Balance -3200 310 Intake: Blood Product 0 310 Rc Irr As1 Unit 0 310 [id number] Hemodialysis 400 Output: Hemodialysis 2000 Hemodialysis Net Amount 1600 Other: Voiding Method Diaper Diaper - Labs CBC & Chem 7: 10/10/24 05:47 10/10/24 05:47 Labs: Abnormal Lab Results - Last 24 Hours (Table) 10/08/24 10/09/24 10/09/24 Range/Units 12:33 10:30 10:30 WBC 17.2 H (3.8-10.6) k/uL RBC 2.28 L (3.80-5.40) m/uL Hgb 7.0 L (11.4-16.0) gm/dL Hct 20.8 L (34.0-46.0) % RDW 16.4 H (11.5-15.5) % Plt Count 138 L (150-450) k/uL Neutrophils # (1.3-7.7) k/uL Neutrophils # (Manual) 15.80 H (1.3-7.7) k/uL Lymphocytes # (Manual) 0.52 L (1.0-4.8) k/uL Sodium 131 L (137-145) mmol/L Potassium 5.4 H (3.5-5.1) mmol/L Chloride 96 L (98-107) mmol/L BUN 62 H (7-17) mg/dL Creatinine 5.57 H (0.52-1.04) mg/dL POC Glucose (mg/dL) (70-110) mg/dL Calcium 8.0 L (8.4-10.2) mg/dL Crossmatch See Detail 10/09/24 10/09/24 10/10/24 Range/Units 20:22 21:06 05:47 WBC 12.5 H 16.6 H (3.8-10.6) k/uL RBC 2.70 L 2.79 L (3.80-5.40) m/uL Hgb 8.4 L 8.7 L (11.4-16.0) gm/dL Hct 25.3 L 25.5 L (34.0-46.0) % RDW 16.5 H (11.5-15.5) % Plt Count 114 L (150-450) k/uL Neutrophils # 10.1 H (1.3-7.7) k/uL Neutrophils # (Manual) (1.3-7.7) k/uL Lymphocytes # (Manual) (1.0-4.8) k/uL Sodium (137-145) mmol/L Potassium (3.5-5.1) mmol/L Chloride (98-107) mmol/L BUN (7-17) mg/dL Creatinine (0.52-1.04) mg/dL POC Glucose (mg/dL) 121 H (70-110) mg/dL Calcium (8.4-10.2) mg/dL Crossmatch 10/10/24 10/10/24 Range/Units 05:47 06:14 WBC (3.8-10.6) k/uL RBC (3.80-5.40) m/uL Hgb (11.4-16.0) gm/dL Hct (34.0-46.0) % RDW (11.5-15.5) % Plt Count (150-450) k/uL Neutrophils # (1.3-7.7) k/uL Neutrophils # (Manual) (1.3-7.7) k/uL Lymphocytes # (Manual) (1.0-4.8) k/uL Sodium 131 L (137-145) mmol/L Potassium (3.5-5.1) mmol/L Chloride 94 L (98-107) mmol/L BUN 36 H (7-17) mg/dL Creatinine 3.72 H (0.52-1.04) mg/dL POC Glucose (mg/dL) 114 H (70-110) mg/dL Calcium 8.1 L (8.4-10.2) mg/dL Crossmatch Assessment and Plan Plan: Assessment: 1. End-stage renal disease maintained on hemodialysis on Saturday schedule via right upper extremity AV fistula. 2. Status post fall with left hip fracture. Orthopedic surgery following. Status post trochanteric intramedullary nailing of the left femur October 08. 3. Hypertension with chronic kidney disease. Blood pressure low today. 4. Diabetes mellitus. 5. Anemia of chronic kidney disease. Iron replete. On Aranesp. Also received a unit of blood this admission. Plan: Hemodialysis Saturday. Stop Cozaar. Stop hydralazine.
[2024-10-10 11:44] LABS: Glucose,Whole Blood 114 mg/dL (70-110)
== END 2024-10-10 12:18 | DRG 480 ==
LOC: EC 04:23 → 4SSUR 04:54
PROVIDERS: ADMIT Orthopaedic Surgery; ATTEND Orthopaedic Surgery
PROC: 5A1D70Z Performance of Urinary Filtration, Intermittent, Less than 6 Hours Per Day (ICD-10-PCS; 2024-10-07)
PROC: 0QS706Z Reposition Left Upper Femur with Intramedullary Internal Fixation Device, Open Approach (ICD-10-PCS; principal; 2024-10-08 07:30)
PROC: 30233N1 Transfusion of Nonautologous Red Blood Cells into Peripheral Vein, Percutaneous Approach (ICD-10-PCS; 2024-10-09)
DX: S72.142A Displaced intertrochanteric fracture of left femur, initial encounter for closed fracture (principal); N18.6 End stage renal disease; I50.32 Chronic diastolic (congestive) heart failure; I13.2 Hypertensive heart and chronic kidney disease with heart failure and with stage 5 chronic kidney disease, or end stage renal disease; E87.1 Hypo-osmolality and hyponatremia; D62 Acute posthemorrhagic anemia; I25.10 Atherosclerotic heart disease of native coronary artery without angina pectoris; E11.22 Type 2 diabetes mellitus with diabetic chronic kidney disease; E78.5 Hyperlipidemia, unspecified; D63.1 Anemia in chronic kidney disease; I16.0 Hypertensive urgency; R74.01 Elevation of levels of liver transaminase levels; E87.5 Hyperkalemia; W05.0XXA Fall from non-moving wheelchair, initial encounter; Z79.01 Long term (current) use of anticoagulants; Z79.899 Other long term (current) drug therapy; Z88.0 Allergy status to penicillin; Z87.891 Personal history of nicotine dependence; Z86.73 Personal history of transient ischemic attack (TIA), and cerebral infarction without residual deficits; Z85.3 Personal history of malignant neoplasm of breast; Z99.2 Dependence on renal dialysis; Z99.3 Dependence on wheelchair
CPT/HCPCS: 36430; 70450; 73502; 80048; 80053; 82728; 83540; 83550; 83735; 84100; 85025; 85027; 85610; 85730; 86706; 86850; 86900; 86901; 86920; 87340; 90935; 93005; 96374; 99285

== ENCOUNTER 2024-10-11 00:33 | Inpatient (IN) | payer MEDICARE, OTHER ==
--- NOTE | 2024-10-11 01:18 | ED ---
General Adult HPI - General Chief complaint: Shortness of Breath Stated complaint: Hypoxia Time Seen by Provider: 10/11/24 00:41 Source: EMS Mode of arrival: EMS Limitations: altered mental status - History of Present Illness Initial comments: This patient is an 79-year-old woman who arrives as a transfer from [facility]. Patient has history of end-stage renal disease on hemodialysis, history of dementia, history of previous breast cancer, history of hydrocephalus, history of diabetes, history of congestive heart failure. Patient had reportedly gone to the other facility with complaint of dyspnea. Patient is currently resident of [facility], reportedly there is rehab patient following left hip surgery related fracture. On arrival, the patient not able to contribute any additional history does appear to be de lirious versus chronic underlying dementia. Transfer papers from the other hospital reveal that the patient did have chest x-ray which was read as being negative for acute cardiopulmonary process. The patient had CT angiogram of the chest that was reported to be negative for pulmonary embolism. There is trace right pleural effusion. She had the of the abdomen and pelvis which was read as negative for acute abdominal process. The patient had labs revealing mild hyponatremia at 131. BUN 45.5, creatinine 4.45, AST 44, ALT 173. BC revealed white count 14.17, hemoglobin 8, platelets 141. Laded to patient's hip fracture she reportedly had fallen 5 days ago, she had internal fixation here at this facility and then was discharged on 118. On arrival at the rehab facility, patient reportedly to have blood pressure 80/40 with O2 saturations approximately 70%. - Related Data Home Medications Medication Instructions Recorded Confirmed Sevelamer [Renvela] 1,600 mg PO TID 06/19/20 10/11/24 Apixaban [Eliquis] 2.5 mg PO BID 07/01/20 10/11/24 Ergocalciferol (Vitamin D2) 1,250 mcg PO TH 12/04/22 10/11/24 [Drisdol (50,000 Iu)] Ferrous Sulfate [Iron (65 MG 325 mg PO BID 12/04/22 10/11/24 Elemental)] Loperamide [Imodium] 2 mg PO Q8H PRN 12/04/22 10/11/24 Omeprazole 20 mg PO DAILY 12/04/22 10/11/24 Ondansetron [Zofran] 4 mg PO Q6H PRN 12/04/22 10/11/24 Thiamine [Vitamin B-1] 100 mg PO DAILY 12/04/22 10/11/24 L.acidoph,Paracasei, B.lactis 1 cap PO DAILY 02/07/23 10/11/24 [Probiotic] Losartan Potassium 50 mg PO BID 02/07/23 10/11/24 hydrALAZINE HCL [Apresoline] 50 mg PO TID 02/07/23 10/11/24 Acetaminophen [Tylenol 8 Hour] 650 mg PO BID 10/07/24 10/11/24 Benzonatate [Tessalon Perles] 100 mg PO TID 10/07/24 10/11/24 Lidocaine-Prilocaine Cream [Emla 1 applic TOPICAL MOWEFR 10/07/24 10/11/24 Cream 2.5%/2.5%] Melatonin 5 mg PO HS 10/07/24 10/11/24 Sevelamer [Renvela] 800 mg PO DIRECTED PRN 10/07/24 10/11/24 Sodium Chloride [Saline Nasal Mist] 1 spray EA NOSTRIL Q2H PRN 10/07/24 10/11/24 bisacodyL [Dulcolax] 10 mg RECTAL DAILY PRN 10/07/24 10/11/24 carvediloL [Coreg] 12.5 mg PO BID 10/07/24 10/11/24 guaiFENesin-DM 100-10MG/5ML 10 ml PO Q6H PRN 10/07/24 10/11/24 [Robitussin DM] traZODone HCL [Desyrel] 75 mg PO HS 10/07/24 10/11/24 Daily Nellie 1 tab PO DAILY 10/11/24 10/11/24 Previous Rx's Medication Instructions Recorded Aspirin 81 mg PO DAILY #30 tab 10/15/24 Atorvastatin [Lipitor] 40 mg PO HS #30 tab 10/15/24 HYDROcodone/APAP 7.5-325MG [[place] 1 tab PO Q6HR PRN 3 Days #12 tab 10/15/24 7.5-325] Ipratropium-Albuterol Nebulize 3 ml INHALATION RT-QID PRN 30 Days 10/15/24 [Duoneb 0.5 mg-3 mg/3 ml Soln] #120 each Isosorbide Mononitrate ER [Imdur] 30 mg PO DAILY 30 Days #30 tab 10/15/24 Nitroglycerin Sl Tabs [Nitrostat] 0.4 mg SUBLINGUAL Q5M PRN #30 tab 10/15/24 Allergies Allergy/AdvReac Type Severity Reaction Status Date / Time Penicillins Allergy Rash/Hives Verified 10/11/24 00:39 Review of Systems ROS Statement: Those systems with pertinent positive or pertinent negative responses have been documented in the HPI. ROS Other: All systems not noted in ROS Statement are negative. Limitations: ROS unobtainable due to patients medical condition Cardiovascular: Denies: chest pain Gastrointestinal: Denies: abdominal pain Musculoskeletal: Reports: arthralgia (Left hip pain) Neurological: Denies: headache Past Medical History Past Medical History: Coronary Artery Disease (CAD), Cancer, Heart Failure, CVA/TIA, Diabetes Mellitus, Eye Disorder, GERD/Reflux, Hyperlipidemia, Hypertension, Osteoarthritis (OA), Pneumonia, Renal Disease Additional Past Medical History / Comment(s): HX OF LEFT BREAST CANCER, NEUROPATHY FEET & HANDS, RT EYE DIABETIC RETINOPATHY-POOR VISION, ANEMIA, ESRD History of Any Multi-Drug Resistant Organisms: None Reported Past Surgical History: Section, Cholecystectomy, Tonsillectomy, Tubal Ligation Additional Past Surgical History / Comment(s): LEFT BREAST LUMPECTOMY- no chemo, no radiation but took hormone pills, D&C, GERSON CATARACT SX-LENS IMPLANTS. Past Anesthesia/Blood Transfusion Reactions: Previous Problems w/ Anesthesia Additional Past Anesthesia/Blood Transfusion Reaction / Comment(s): STATED "TOOK A LONG TIME WAKING UP FROM ANESTHESIA" Past Psychological History: No Psychological Hx Reported Smoking Status: Former smoker Past Alcohol Use History: None Reported Past Drug Use History: None Reported - Past Family History Mother Family Medical History: No Reported History Brother(s) Family Medical History: Diabetes Mellitus General Exam Limitations: altered mental status General appearance: other (Somnolent but arouses to voice.) Head exam: Present: atraumatic, normocephalic Eye exam: Present: normal appearance. Absent: scleral icterus, conjunctival injection ENT exam: Present: mucous membranes dry Neck exam: Present: full ROM. Absent: tenderness, meningismus Respiratory exam: Present: rhonchi. Absent: respiratory distress, wheezes, rales, stridor, accessory muscle use Cardiovascular Exam: Present: regular rate, normal rhythm, normal heart sounds. Absent: systolic murmur, diastolic murmur, rubs, gallop GI/Abdominal exam: Present: soft. Absent: distended, tenderness, guarding, rebound, mass Extremities exam: Present: normal inspection, normal capillary refill, other (Patient's surgical dressing is clean dry and intact. No marked erythema or warmth.). Absent: pedal edema, calf tenderness Neurological exam: Present: CN II-XII intact, other (Somnolent but arouses to voice.). Absent: oriented X3, motor sensory deficit Skin exam: Present: warm, dry, intact, normal color. Absent: rash Course Vital Signs 10/11/24 10/11/24 10/11/24 00:35 00:43 01:00 Temperature 98.2 F Pulse Rate 76 69 68 Respiratory 18 18 18 Rate Blood Pressure 138/65 138/65 132/65 O2 Sat by Pulse 95 99 99 Oximetry 10/11/24 10/11/24 10/11/24 02:00 04:04 05:15 Temperature Pulse Rate 68 70 73 Respiratory 18 16 18 Rate Blood Pressure 123/65 139/64 130/54 O2 Sat by Pulse 99 98 93 L Oximetry 10/11/24 10/11/24 10/11/24 06:54 09:00 10:00 Temperature Pulse Rate 73 74 74 Respiratory 16 20 22 Rate Blood Pressure 141/59 170/68 171/66 O2 Sat by Pulse 98 94 L 94 L Oximetry 10/11/24 10/11/24 10/11/24 12:00 13:00 15:00 Temperature Pulse Rate 76 78 76 Respiratory 20 20 20 Rate Blood Pressure 176/84 163/61 156/87 O2 Sat by Pulse 96 94 L 93 L Oximetry 10/11/24 10/11/24 10/12/24 17:57 20:00 02:00 Temperature Pulse Rate 75 72 67 Respiratory 20 17 10 L Rate Blood Pressure 161/81 146/56 136/59 O2 Sat by Pulse 97 97 96 Oximetry 10/12/24 10/12/24 10/12/24 06:00 09:05 09:15 Temperature 97.9 F Pulse Rate 100 73 Respiratory 21 18 Rate Blood Pressure 120/69 113/50 O2 Sat by Pulse 96 76 L 96 Oximetry 10/12/24 10/12/24 10/12/24 11:07 13:03 17:08 Temperature Pulse Rate 65 63 Respiratory 18 14 Rate Blood Pressure 93/42 99/43 O2 Sat by Pulse 96 99 98 Oximetry 10/12/24 10/12/24 10/12/24 17:27 17:37 19:26 Temperature Pulse Rate 61 57 L 62 Respiratory 17 Rate Blood Pressure 102/44 O2 Sat by Pulse 100 Oximetry 10/12/24 10/12/24 21:00 21:25 Temperature Pulse Rate 70 74 Respiratory 17 17 Rate Blood Pressure 116/63 104/48 O2 Sat by Pulse 100 100 Oximetry EKG Findings - EKG Results: EKG: interpreted by HOANG, sinus rhythm (Rate 68 bpm), normal axis, normal QRS - Blocks, [place], Hypertrophy, ST Abn: Repolarization changes or abnormalities: nonspecific abnormality, ST segment, and/or T wave Medical Decision Making - Medical Decision Making Patient is an 79-year-old woman here as transfer from [facility] where the patient had been taken for hypotension and low pulse oximetry readings. Patient did reportedly have chest pain. Here she denies symptoms. The patient labs here show a markedly elevated troponin. Patient started on heparin. Her Eliquis will be held. Case discussed with admitting service as well as consultants. Was pt. sent in by a medical professional or institution ([facility]ENNY [facility]ley, SALVAGE CUTTER, urgent care, hospital, or halfway...) When possible be specific @ -Yes, patient arrives here as transfer from [facility] Did you speak to anyone other than the patient for history (EMS, parent, family, police, friend...)? What history was obtained from this source @ -[No] Did you review nursing and triage notes (agree or disagree)? Why? @ -[I reviewed and agree with nursing and triage notes] Were old charts reviewed (outside hosp., previous admission, EMS record, old E KG, old radiological studies, urgent care reports/EKG's, halfway records)? Report findings @ -[Yes, old charts and transfer records were reviewed] Differential Diagnosis (chest pain, altered mental status, abdominal pain women, abdominal pain men, vaginal bleeding, weakness, fever, dyspnea, syncope, headache, dizziness, GI bleed, back pain, seizure, CVA, palpatations, mental health, musculoskeletal)? @ -[Differential Altered Mental Status: Hypoglycemia, DKA, hypercapnia, ETOH, overdose, CO poisoning, trauma, myxedema coma, HTN encephalopathy, infection, encephalitis, psychosis, intercranial hemorrhage, hepatic encephalopathy, meningitis, CVA, this is not meant to be an all-inclusive list EKG interpreted by me (3pts min.). @ -[I interpreted as above] X-rays interpreted by me (1pt min.). @ -[None done] CT interpreted by me (1pt min.). @ -[None done] U/S interpreted by me (1pt. min.). @ -[None done] What testing was considered but not performed or refused? (CT, X-rays, U/S, labs)? Why? @ -[None] What meds were considered but not given or refused? Why? @ -[None] Did you discuss the management of the patient with other professionals (professionals i.e. , PA, SALVAGE CUTTER, lab, RT, psych nurse, child protective services social worker, senior technical recruiter, teacher, chairman president and chief executive officer, child welfare caseworker)? Give summary @ -[I discussed the patient's case with the admitting physician as well as the consultants, patient be admitted, cardiology will see the patient, nephrology recommendations also incorporated Was smoking cessation discussed for >3mins.? @ -[No] Was critical care preformed (if so, how long)? @ -[Yes, 40 minutes Were there social determinants of health that impacted care today? How? (Homelessness, low income, unemployed, alcoholism, drug addiction, transportation, low edu. Level, literacy, decrease access to med. care, mcc, rehab)? @ -[No] Was there de-escalation of care discussed even if they declined (Discuss DNR or withdrawal of care, Hospice)? DNR status @ -[No] What co-morbidities impacted this encounter? (DM, HTN, Smoking, COPD, CAD, Cancer, CVA, ARF, Chemo, Hep., AIDS, mental health diagnosis, sleep apnea, morbid obesity)? @ -[Chronic renal disease, recent hip replacement Was patient admitted / discharged? Hospital course, mention meds given and route, prescriptions, significant lab abnormalities, going to OR and other pertinent info. @ -[See the above note Undiagnosed new problem with uncertain prognosis? @ -[No] Drug Therapy requiring intensive monitoring for toxicity (Heparin, Nitro, Insulin, Cardizem)? @ -IV heparin Were any procedures done? @ -[No] Diagnosis/symptom? @ -[Altered mental status NSTEMI End-stage renal disease Anemia Acute, or Chronic, or Acute on Chronic? @ -[default] Uncomplicated (without systemic symptoms) or Complicated (systemic symptoms)? @ -[Complicated by altered mental status Side effects of treatment? @ -[No] Exacerbation, Progression, or Severe Exacerbation? @ -[No] Poses a threat to life or bodily function? How? (Chest pain, USA, NH, pneumonia, PE, COPD, DKA, ARF, appy, cholecystitis, CVA, Diverticulitis, Homicidal, Suicidal, threat to staff... and all critical care pts) @ -[Yes significant risk of morbidity and mortality All treatments are based on ideal body weight as in ED triage - Lab Data Result diagrams: 10/15/24 06:05 10/15/24 06:05 Lab Results 10/11/24 10/11/24 10/11/24 Range/Units 01:06 01:06 01:06 WBC 11.6 H (3.8-10.6) k/uL RBC 2.45 L (3.80-5.40) m/uL Hgb 7.6 L (11.4-16.0) gm/dL Hct 22.3 L (34.0-46.0) % MCV 91.3 (80.0-100.0) fL MCH 31.0 (25.0-35.0) pg MCHC 34.0 (31.0-37.0) g/dL RDW 15.8 H (11.5-15.5) % Plt Count 133 L (150-450) k/uL MPV 8.0 Neutrophils % 80 % Lymphocytes % 10 % Monocytes % 7 % Eosinophils % 1 % Basophils % 0 % Neutrophils # 9.3 H (1.3-7.7) k/uL Lymphocytes # 1.1 (1.0-4.8) k/uL Monocytes # 0.9 (0-1.0) k/uL Eosinophils # 0.2 (0-0.7) k/uL Basophils # 0.0 (0-0.2) k/uL PT 17.7 H (10.0-12.5) sec INR 1.7 H (<1.2) APTT 24.9 (22.0-30.0) sec Sodium 131 L (137-145) mmol/L Potassium 4.2 (3.5-5.1) mmol/L Chloride 92 L (98-107) mmol/L Carbon Dioxide 28 (22-30) mmol/L Anion Gap 11 mmol/L BUN 55 H (7-17) mg/dL Creatinine 5.04 H (0.52-1.04) mg/dL Est GFR (CKD-EPI)AfAm 9 (>60 ml/min/1.73 sqM) Est GFR (CKD-EPI)NonAf 8 (>60 ml/min/1.73 sqM) Glucose 92 (74-99) mg/dL POC Glucose (mg/dL) (70-110) mg/dL POC Glu Covering And Lining Supervisor ID Plasma Lactic Acid Bobby (0.7-2.0) mmol/L Calcium 7.8 L (8.4-10.2) mg/dL Total Bilirubin 0.6 (0.2-1.3) mg/dL AST 423 H (14-36) U/L ALT 76 H (4-34) U/L Alkaline Phosphatase 80 (38-126) U/L Troponin I (0.000-0.034) ng/mL NT-Pro-B Natriuret Pep 32254 pg/mL Total Protein 5.1 L (6.3-8.2) g/dL Albumin 2.8 L (3.5-5.0) g/dL 10/11/24 10/11/24 10/11/24 Range/Units 01:06 01:06 01:17 WBC (3.8-10.6) k/uL RBC (3.80-5.40) m/uL Hgb (11.4-16.0) gm/dL Hct (34.0-46.0) % MCV (80.0-100.0) fL MCH (25.0-35.0) pg MCHC (31.0-37.0) g/dL RDW (11.5-15.5) % Plt Count (150-450) k/uL MPV Neutrophils % % Lymphocytes % % Monocytes % % Eosinophils % % Basophils % % Neutrophils # (1.3-7.7) k/uL Lymphocytes # (1.0-4.8) k/uL Monocytes # (0-1.0) k/uL Eosinophils # (0-0.7) k/uL Basophils # (0-0.2) k/uL PT (10.0-12.5) sec INR (<1.2) APTT (22.0-30.0) sec Sodium (137-145) mmol/L Potassium (3.5-5.1) mmol/L Chloride (98-107) mmol/L Carbon Dioxide (22-30) mmol/L Anion Gap mmol/L BUN (7-17) mg/dL Creatinine (0.52-1.04) mg/dL Est GFR (CKD-EPI)AfAm (>60 ml/min/1.73 sqM) Est GFR (CKD-EPI)NonAf (>60 ml/min/1.73 sqM) Glucose (74-99) mg/dL POC Glucose (mg/dL) 100 (70-110) mg/dL POC Glu Covering And Lining Supervisor ID Belcher Kathleen Plasma Lactic Acid Bobby 0.7 (0.7-2.0) mmol/L Calcium (8.4-10.2) mg/dL Total Bilirubin (0.2-1.3) mg/dL AST (14-36) U/L ALT (4-34) U/L Alkaline Phosphatase (38-126) U/L Troponin I 7.940 H* (0.000-0.034) ng/mL NT-Pro-B Natriuret Pep pg/mL Total Protein (6.3-8.2) g/dL Albumin (3.5-5.0) g/dL Disposition Clinical Impression: NSTEMI (non-ST elevated myocardial infarction) Disposition: ADMITTED IP TO THIS HOSP Condition: Fair Is patient prescribed a controlled substance at d/c from ED?: No
[2024-10-11 01:19] LABS: Glucose,Whole Blood 100 mg/dL (70-110)
[2024-10-11] MEDS: SODIUM CHLORIDE 0.9% 500 ML 500 ML IV ONE (01:21)
[2024-10-11 01:33] LABS: Basophils % (A) 0 %; Eosinophils # (A) 0.2 k/uL (0-0.7); Eosinophils % (A) 1 %; HCT 22.3 % (34.0-46.0); HGB 7.6 gm/dL (11.4-16.0); Lymphocytes # (A) 1.1 k/uL (1.0-4.8); Lymphocytes % (A) 10 %; MCV 91.3 fL (80.0-100.0); Monocytes # (A) 0.9 k/uL (0-1.0); Monocytes % (A) 7 %; Neutrophils # (A) 9.3 k/uL (1.3-7.7); Neutrophils % (A) 80 %; Platelet Count 133 k/uL (150-450); RBC 2.45 m/uL (3.80-5.40); RDW 15.8 % (11.5-15.5); WBC 11.6 k/uL (3.8-10.6)
[2024-10-11 01:38] LABS: ALT 76 U/L (4-34); AST 423 U/L (14-36); African American GFR (CKD) 9 (>60 ml/min/1.73 sqM); Albumin 2.8 g/dL (3.5-5.0); Alkaline Phosphatase 80 U/L (38-126); Anion Gap 11 mmol/L; Blood Urea Nitrogen 55 mg/dL (7-17); Calcium 7.8 mg/dL (8.4-10.2); Carbon Dioxide 28 mmol/L (22-30); Chloride 92 mmol/L (98-107); Glucose 92 mg/dL (74-99); INR 1.7 (<1.2); Non-African American GFR(CKD) 8 (>60 ml/min/1.73 sqM); Partial Thromboplastin Time 24.9 sec (22.0-30.0); Potassium 4.2 mmol/L (3.5-5.1); Prothrombin Time 17.7 sec (10.0-12.5); Sodium 131 mmol/L (137-145); Total Bilirubin 0.6 mg/dL (0.2-1.3); Total Protein 5.1 g/dL (6.3-8.2)
[2024-10-11 02:03] LABS: NT-Pro-B-Type Natriuretic Pept 38500 pg/mL
--- NOTE | 2024-10-11 02:36 | XR ---
EXAM: XR Chest, 1 View CLINICAL HISTORY: ITS.REASON XR Reason: mental status change TECHNIQUE: Frontal view of the chest. COMPARISON: No relevant prior studies available. FINDINGS: Lungs: No consolidation or mass. Pleural space: No acute findings. Heart: Mild cardiomegaly. Bones/joints: No acute findings. IMPRESSION: No acute cardiopulmonary process.
[2024-10-11] MEDS ORDERED: HEPARIN SODIUM 1,000 UN/ML (10ML VL) IV PRN (03:36)
[2024-10-11] MEDS ORDERED: NITROGLYCERIN SL TABS 0.4 MG TAB SUBLINGUAL PRN (03:37)
[2024-10-11] MEDS: HEPARIN SODIUM 1,000 UN/ML (10ML VL) IV ONE (04:01)
[2024-10-11] MEDS: HEPARIN SOD,PORK IN 0.45% NACL 25,000 UNIT in 0.45% NACL 1 250ML.BAG IV SCH (04:02)
[2024-10-11] MEDS ORDERED: SEVELAMER 800 MG TAB PO PRN (11:02)
[2024-10-11] MEDS ORDERED: hydrALAZINE HCL 20 MG/ML 1 ML VIAL IVP PRN (11:09)
--- NOTE | 2024-10-11 11:12 | P.NPCON ---
History of Present Illness - Reason for Consult end stage renal disease - History of Present Illness Reason for consultation: End-stage renal disease History of present illness: Patient is a 79-year-old female seen in renal consultation for end-stage renal disease. Patient was seen and examined in the emergency room. Patient is maintained on hemodialysis on Saturday schedule. She has a right upper extremity AV fistula. Patient was recently admitted at this facility after she sustained a fall and a left hip fracture. This was surgically repaired and she was discharged to rehab facility. It is noted the patient was dyspneic at the rehab facility and was sent to [facility]. She had a chest x-ray done which showed no active cardiopulmonary disease and also CT angiogram which was negative for PE. No acute abdominal process was noted on CT. She was subsequently transferred here for further care. She is currently resting in bed. She is on a nasal cannula. Blood pressure is on the higher end. Patient is not a reliable historian. Vital signs are stable. General: No acute distress. HEENT: Head exam is unremarkable. On nasal cannula. LUNGS: No audible rhonchi or wheezes. HEART: Rate and Rhythm are regular. ABDOMEN: Nontender. EXTREMITITES: No edema. Past Medical History Past Medical History: Coronary Artery Disease (CAD), Cancer, Heart Failure, CVA/TIA, Diabetes Mellitus, Eye Disorder, GERD/Reflux, Hyperlipidemia, Hypertension, Osteoarthritis (OA), Pneumonia, Renal Disease Additional Past Medical History / Comment(s): HX OF LEFT BREAST CANCER, NEUROPATHY FEET & HANDS, RT EYE DIABETIC RETINOPATHY-POOR VISION, ANEMIA, ESRD History of Any Multi-Drug Resistant Organisms: None Reported Past Surgical History: Section, Cholecystectomy, Tonsillectomy, Tubal Ligation Additional Past Surgical History / Comment(s): LEFT BREAST LUMPECTOMY- no chemo, no radiation but took hormone pills, D&C, GERSON CATARACT SX-LENS IMPLANTS. Past Anesthesia/Blood Transfusion Reactions: Previous Problems w/ Anesthesia Additional Past Anesthesia/Blood Transfusion Reaction / Comment(s): STATED "TOOK A LONG TIME WAKING UP FROM ANESTHESIA" Past Psychological History: No Psychological Hx Reported Smoking Status: Former smoker Past Alcohol Use History: None Reported Past Drug Use History: None Reported - Past Family History Mother Family Medical History: No Reported History Brother(s) Family Medical History: Diabetes Mellitus Medications and Allergies Home Medications Medication Instructions Recorded Confirmed Type Acetaminophen Tab [Tylenol] 650 mg PO Q6H PRN MDD 3000mg 08/13/18 10/07/24 History Sevelamer [Renvela] 1,600 mg PO TID 06/19/20 10/07/24 History Apixaban [Eliquis] 2.5 mg PO BID 07/01/20 10/08/24 History Atorvastatin [Lipitor] 80 mg PO HS 12/04/22 10/07/24 History Ergocalciferol (Vitamin D2) 1,250 mcg PO TH 12/04/22 10/07/24 History [Drisdol (50,000 Iu)] Ferrous Sulfate [Iron (65 MG 325 mg PO DAILY 12/04/22 10/07/24 History Elemental)] Loperamide [Imodium] 2 mg PO Q8H PRN 12/04/22 10/07/24 History Omeprazole 20 mg PO DAILY 12/04/22 10/07/24 History Ondansetron [Zofran] 4 mg PO Q6H PRN 12/04/22 10/07/24 History Thiamine [Vitamin B-1] 100 mg PO DAILY 12/04/22 10/07/24 History L.acidoph,Paracasei, B.lactis 1 cap PO DAILY 02/07/23 10/07/24 History [Probiotic] Losartan Potassium 50 mg PO BID 02/07/23 10/07/24 History Multivitamins, Thera [Multivitamin 1 tab PO DAILY 02/07/23 10/07/24 History (formulary)] hydrALAZINE HCL [Apresoline] 50 mg PO TID 02/07/23 10/07/24 History Acetaminophen [Tylenol 8 Hour] 650 mg PO BID 10/07/24 10/07/24 History Benzonatate [Tessalon Perles] 100 mg PO TID 10/07/24 10/07/24 History HYDROcodone/APAP 5-325MG [[place] 1 tab PO Q6H PRN 10/07/24 10/07/24 History 5-325] Lidocaine-Prilocaine Cream [Emla 1 applic TOPICAL MOWEFR 10/07/24 10/07/24 History Cream 2.5%/2.5%] Melatonin 5 mg PO HS 10/07/24 10/07/24 History Sevelamer [Renvela] 800 mg PO DIRECTED PRN 10/07/24 10/07/24 History Sodium Chloride [Saline Nasal Mist] 1 spray EA NOSTRIL Q2H PRN 10/07/24 10/07/24 History bisacodyL [Dulcolax] 10 mg RECTAL DAILY PRN 10/07/24 10/07/24 History carvediloL [Coreg] 12.5 mg PO BID 10/07/24 10/07/24 History dexAMETHasone [Decadron] 6 mg PO DAILY 10/07/24 10/07/24 History guaiFENesin-DM 100-10MG/5ML 10 ml PO Q6H PRN 10/07/24 10/07/24 History [Robitussin DM] traZODone HCL [Desyrel] 75 mg PO HS 10/07/24 10/07/24 History HYDROcodone/APAP 7.5-325MG [[place] 1 tab PO Q6HR PRN #18 tab 10/10/24 Rx 7.5-325] Allergies Allergy/AdvReac Type Severity Reaction Status Date / Time Penicillins Allergy Rash/Hives Verified 10/11/24 00:39 Physical Exam Vitals: Vital Signs Temp Pulse Resp BP Pulse Ox 10/11/24 10:00 74 22 171/66 94 L 10/11/24 09:00 74 20 170/68 94 L 10/11/24 06:54 73 16 141/59 98 10/11/24 05:15 73 18 130/54 93 L 10/11/24 04:04 70 16 139/64 98 10/11/24 02:00 68 18 123/65 99 10/11/24 01:00 68 18 132/65 99 10/11/24 00:43 69 18 138/65 99 10/11/24 00:35 98.2 F 76 18 138/65 95 Intake and Output 10/10/24 10/11/24 10/11/24 22:59 06:59 14:59 Intake Total 57.178 Balance 57.178 Intake: Intake, IV Titration 57.178 Amount Heparin Sod,Pork in 0.45% 57.178 NaCl 25,000 unit In 0.45 % NaCl 1 250ml.bag @ 9.8 UNITS/KG/HR 10.002 mls/hr IV .Q24H [facility] Rx#: [id number] Other: Weight 102.058 kg Results - Lab Results Most recent lab results Calcium 7.8 mg/dL (8.4-10.2) L 10/11/24 01:06 10/11/24 01:06 10/11/24 01:06 Assessment and Plan Plan: Assessment: 1. End-stage renal disease maintained on hemodialysis on Saturday schedule via right upper extremity fistula. 2. Status post fall with left hip fracture status post intramedullary nailing October 08, 2024. 3. Diabetes mellitus. 4. Hypertension with chronic kidney disease. 5. Anemia of chronic kidney disease. 6. Dyspnea. Currently on nasal cannula. Component of volume overload. CTA showed no PE. Plan: Hemodialysis tomorrow. Add Aranesp. Check iron studies. Home antihypertensives resumed. Thank you for the consultation. I will continue to follow the patient with you during her hospital stay.
--- NOTE | 2024-10-11 12:49 | P.CRDCN ---
History of Present Illness Consult date: 10/11/24 History of present illness: HISTORY OF PRESENTING ILLNESS: 79-year-old female with past medical history of ESRD on hemodialysis, diastolic heart failure, GERD, hypertension, history of breast cancer. She had a mechanical fall resulting in left intertrochanteric fracture. She underwent surgical internal fixation of her hip fracture during last hospital admission. She was discharged to a rehab place yesterday. Apparently patient got more confused and short of breath for which she was sent to the [facility] and thereafter to [facility]. BP 170/68, heart rate 74 bpm Admission Labs: Hemoglobin 7.6, WBC 11.6, BUN 55, creatinine 5.04, troponin elevated at 7.9, repeat 8, repeat 7.9 NT-proBNP 38,000 Admission EKG: Sinus rhythm, heart rate 68 bpm, nonspecific ST segment changes Chest x-ray shows mild increased interstitial marking with no obvious con solidation or congestion. Workup at [facility] with CT angiogram did not show any evidence of PE. Prior cardiac testing: Echo from 2019 shows an EF of 55%, moderate concentric LVH, mild MR, mild TR REVIEW OF SYSTEMS: 14 point review of system is negative except what is mentioned above in HPI. PHYSICAL EXAMINATION: Neck: Brisk carotid upstroke, no jugular venous distention. Lungs: Clear to auscultation. Heart: Regular rate and rhythm, S1-S2, , no murmur or rub. Abdomen: Soft nontender, positive bowel sounds. Extremities: No edema, intact distal pulses. Neuro: Alert, oritented, no focal deficits. Detailed neuro exam was not performed. ASSESSMENT: # Elevated troponin with a flat pattern. # Acute on chronic hypoxic respiratory failure # Metabolic encephalopathy # ESRD on hemodialysis # Anemia of chronic disease PLAN: Obtain updated echocardiogram Discontinue IV heparin drip in view of anemia, frail status, flat troponin in setting of poor renal clearance. Differential includes myocarditis Continue aspirin 81 mg, Lipitor 40 mg, Coreg 12.5 mg twice daily, Hydralazine 50 mg 3 times daily, losartan 50 mg twice daily. Further recommendations to follow Jose Abdul MD, FACC, RPVI Thank you for allowing [facility] to participate in this patient's care. Feel free to reach out in case of any followup questions. Past Medical History Past Medical History: Coronary Artery Disease (CAD), Cancer, Heart Failure, CVA/TIA, Diabetes Mellitus, Eye Disorder, GERD/Reflux, Hyperlipidemia, Hypertension, Osteoarthritis (OA), Pneumonia, Renal Disease Additional Past Medical History / Comment(s): HX OF LEFT BREAST CANCER, NEUROPATHY FEET & HANDS, RT EYE DIABETIC RETINOPATHY-POOR VISION, ANEMIA, ESRD History of Any Multi-Drug Resistant Organisms: None Reported Past Surgical History: Section, Cholecystectomy, Tonsillectomy, Tubal Ligation Additional Past Surgical History / Comment(s): LEFT BREAST LUMPECTOMY- no chemo, no radiation but took hormone pills, D&C, GERSON CATARACT SX-LENS IMPLANTS. Past Anesthesia/Blood Transfusion Reactions: Previous Problems w/ Anesthesia Additional Past Anesthesia/Blood Transfusion Reaction / Comment(s): STATED "TOOK A LONG TIME WAKING UP FROM ANESTHESIA" Past Psychological History: No Psychological Hx Reported Smoking Status: Former smoker Past Alcohol Use History: None Reported Past Drug Use History: None Reported - Past Family History Mother Family Medical History: No Reported History Brother(s) Family Medical History: Diabetes Mellitus Medications and Allergies Home Medications Medication Instructions Recorded Confirmed Type Acetaminophen Tab [Tylenol] 650 mg PO Q6H PRN MDD 3000mg 08/13/18 10/11/24 History Sevelamer [Renvela] 1,600 mg PO TID 06/19/20 10/11/24 History Apixaban [Eliquis] 2.5 mg PO BID 07/01/20 10/11/24 History Atorvastatin [Lipitor] 80 mg PO HS 12/04/22 10/11/24 History Ergocalciferol (Vitamin D2) 1,250 mcg PO TH 12/04/22 10/11/24 History [Drisdol (50,000 Iu)] Ferrous Sulfate [Iron (65 MG 325 mg PO BID 12/04/22 10/11/24 History Elemental)] Loperamide [Imodium] 2 mg PO Q8H PRN 12/04/22 10/11/24 History Omeprazole 20 mg PO DAILY 12/04/22 10/11/24 History Ondansetron [Zofran] 4 mg PO Q6H PRN 12/04/22 10/11/24 History Thiamine [Vitamin B-1] 100 mg PO DAILY 12/04/22 10/11/24 History L.acidoph,Paracasei, B.lactis 1 cap PO DAILY 02/07/23 10/11/24 History [Probiotic] Losartan Potassium 50 mg PO BID 02/07/23 10/11/24 History hydrALAZINE HCL [Apresoline] 50 mg PO TID 02/07/23 10/11/24 History Acetaminophen [Tylenol 8 Hour] 650 mg PO BID 10/07/24 10/11/24 History Benzonatate [Tessalon Perles] 100 mg PO TID 10/07/24 10/11/24 History Lidocaine-Prilocaine Cream [Emla 1 applic TOPICAL MOWEFR 10/07/24 10/11/24 History Cream 2.5%/2.5%] Melatonin 5 mg PO HS 10/07/24 10/11/24 History Sevelamer [Renvela] 800 mg PO DIRECTED PRN 10/07/24 10/11/24 History Sodium Chloride [Saline Nasal Mist] 1 spray EA NOSTRIL Q2H PRN 10/07/24 10/11/24 History bisacodyL [Dulcolax] 10 mg RECTAL DAILY PRN 10/07/24 10/11/24 History carvediloL [Coreg] 12.5 mg PO BID 10/07/24 10/11/24 History guaiFENesin-DM 100-10MG/5ML 10 ml PO Q6H PRN 10/07/24 10/11/24 History [Robitussin DM] traZODone HCL [Desyrel] 75 mg PO HS 10/07/24 10/11/24 History HYDROcodone/APAP 7.5-325MG [[place] 1 tab PO Q6HR PRN #18 tab 10/10/24 10/11/24 Rx 7.5-325] Daily Nellie 1 tab PO DAILY 10/11/24 10/11/24 History Allergies Allergy/AdvReac Type Severity Reaction Status Date / Time Penicillins Allergy Rash/Hives Verified 10/11/24 00:39 Physical Exam Vitals: Vital Signs Temp Pulse Resp BP Pulse Ox 10/11/24 10:00 74 22 171/66 94 L 10/11/24 09:00 74 20 170/68 94 L 10/11/24 06:54 73 16 141/59 98 10/11/24 05:15 73 18 130/54 93 L 10/11/24 04:04 70 16 139/64 98 01/19/25 02:00 68 18 123/65 99 10/11/24 01:00 68 18 132/65 99 10/11/24 00:43 69 18 138/65 99 10/11/24 00:35 98.2 F 76 18 138/65 95 Intake and Output 10/10/24 10/11/24 10/11/24 22:59 06:59 14:59 Intake Total 57.178 Balance 57.178 Intake: Intake, IV Titration 57.178 Amount Heparin Sod,Pork in 0.45% 57.178 NaCl 25,000 unit In 0.45 % NaCl 1 250ml.bag @ 9.8 UNITS/KG/HR 10.002 mls/hr IV .Q24H [facility] Rx#: [id number] Other: Weight 102.058 kg Results 10/11/24 01:06 10/11/24 01:06 Cardiac Enzymes 10/11/24 10/11/24 10/11/24 Range/Units 01:06 01:06 03:50 AST 423 H (14-36) U/L Troponin I 7.940 H* 8.070 H* (0.000-0.034) ng/mL 10/11/24 Range/Units 07:02 AST (14-36) U/L Troponin I 7.900 H* (0.000-0.034) ng/mL Coagulation 10/11/24 10/11/24 Range/Units 01:06 08:59 PT 17.7 H (10.0-12.5) sec APTT 24.9 153.5 H* (22.0-30.0) sec CBC 10/11/24 Range/Units 01:06 WBC 11.6 H (3.8-10.6) k/uL RBC 2.45 L (3.80-5.40) m/uL Hgb 7.6 L (11.4-16.0) gm/dL Hct 22.3 L (34.0-46.0) % Plt Count 133 L (150-450) k/uL Comprehensive Metabolic Panel 10/11/24 Range/Units 01:06 Sodium 131 L (137-145) mmol/L Potassium 4.2 (3.5-5.1) mmol/L Chloride 92 L (98-107) mmol/L Carbon Dioxide 28 (22-30) mmol/L BUN 55 H (7-17) mg/dL Creatinine 5.04 H (0.52-1.04) mg/dL Glucose 92 (74-99) mg/dL Calcium 7.8 L (8.4-10.2) mg/dL AST 423 H (14-36) U/L ALT 76 H (4-34) U/L Alkaline Phosphatase 80 (38-126) U/L Total Protein 5.1 L (6.3-8.2) g/dL Albumin 2.8 L (3.5-5.0) g/dL Current Medications Generic Name Dose Route Start Last Admin Trade Name Freq PRN Reason Stop Dose Admin Hydrocodone Bitart/Acetaminophen 1 each 10/11/24 11:02 Hydrocodone/Apap 5-325mg 1 Each Tab PO Q6H PRN Pain Aspirin 325 mg 10/12/24 09:00 Aspirin 325 Mg Tab PO DAILY [facility] Atorvastatin Calcium 80 mg 10/11/24 21:00 Atorvastatin 80 Mg Tab PO HS [facility] Carvedilol 12.5 mg 10/11/24 17:30 Carvedilol 12.5 Mg Tab PO BID-W/MEALS [facility] Darbepoetin [place] 40 mcg 10/11/24 11:15 Darbepoetin [place] 40 Mcg/0.4 Ml Syringe SQ Q7D [facility] Ferrous Sulfate 325 mg 10/12/24 09:00 Ferrous Sulfate 325 Mg Tab PO DAILY [facility] Heparin Sodium (Porcine) 0 unit 10/11/24 03:36 Heparin Sodium 1,000 Un/Ml (10ml Vl) IV PER PROTOCOL PRN Low PTT Protocol Hydralazine HCl 50 mg 10/11/24 16:00 Hydralazine Hcl 50 Mg Tab PO TID [facility] Hydralazine HCl 10 mg 10/11/24 11:09 Hydralazine Hcl 20 Mg/Ml 1 Ml Vial IVP Q6HR PRN Blood Pressure - High Heparin Sodium/Sodium Chloride 250 mls @ 10.002 mls/hr 10/11/24 03:45 10/11/24 10:47 25,000 unit/ Sodium Chloride IV 6.8 units/kg/hr .Q24H [place] 6.94 mls/hr Titration Protocol 9.8 UNITS/KG/HR Losartan Potassium 50 mg 10/11/24 21:00 Losartan 50 Mg Tab PO BID [place] Melatonin 5 mg 10/11/24 21:00 Melatonin 5 Mg Tablet PO HS [place] Multivitamins 1 each 10/12/24 09:00 Multivitamins, Thera 1 Each Tab PO DAILY [facility] Nitroglycerin 0.4 mg 10/11/24 03:37 Nitroglycerin Sl Tabs 0.4 Mg Tab SUBLINGUAL Q5M PRN Chest Pain Pantoprazole Sodium 40 mg 10/12/24 09:00 Pantoprazole 40 Mg Tablet PO DAILY [facility] Sevelamer Carbonate 800 mg 10/11/24 11:02 Sevelamer 800 Mg Tab PO BID PRN SNACKS Sevelamer Carbonate 1,600 mg 10/11/24 12:30 Sevelamer 800 Mg Tab PO TID-W/MEALS [facility] Thiamine HCl 100 mg 10/12/24 09:00 Thiamine 100 Mg Tab PO DAILY [facility] Trazodone HCl 75 mg 10/11/24 21:00 Trazodone Hcl 50 Mg Tab PO HS [facility] Intake and Output 10/10/24 10/11/24 10/11/24 22:59 06:59 14:59 Intake Total 57.178 Balance 57.178 Intake: Intake, IV Titration 57.178 Amount Heparin Sod,Pork in 0.45% 57.178 NaCl 25,000 unit In 0.45 % NaCl 1 250ml.bag @ 9.8 UNITS/KG/HR 10.002 mls/hr IV .Q24H [facility] Rx#: [id number] Other: Weight 102.058 kg 10/11/24 01:06 10/11/24 01:06
[2024-10-11] MEDS: SEVELAMER 800 MG TAB PO SCH (13:02)
--- NOTE | 2024-10-11 15:36 | P.HPIM ---
History of Present Illness H&P Date: 10/11/24 Chief Complaint: Shortness of breath/altered mental status 79-year-old woman who arrives as a transfer from [facility]. Patient has history of end-stage renal disease on hemodialysis, history of dementia, history of previous breast cancer, history of hydrocephalus, history of diabetes, history of congestive heart failure. Patient had reportedly gone to the other facility with complaint of dyspnea. Patient is currently resident of [facility], reportedly there is rehab patient following left hip surgery related fracture. On arrival, the patient not able to contribute any additional history does appear to be delirious versus chronic u nderlying dementia. Transfer papers from the other hospital reveal that the patient did have chest x-ray which was read as being negative for acute cardiopulmonary process. The patient had CT angiogram of the chest that was reported to be negative for pulmonary embolism. There is trace right pleural effusion. She had the of the abdomen and pelvis which was read as negative for acute abdominal process. The patient had labs revealing mild hyponatremia at 131. BUN 45.5, creatinine 4.45, AST 44, ALT 173. BC revealed white count 14.17, hemoglobin 8, platelets 141. Laded to patient's hip fracture she reportedly had fallen 5 days ago, she had internal fixation here at this facility and then was discharged on 118. On arrival at the rehab facility, patient reportedly to have blood pressure 80/40 with O2 saturations approximately 70%. Review of Systems ROS unobtainable: due to mental status Past Medical History Past Medical History: Coronary Artery Disease (CAD), Cancer, Heart Failure, CVA/TIA, Diabetes Mellitus, Eye Disorder, GERD/Reflux, Hyperlipidemia, Hypertension, Osteoarthritis (OA), Pneumonia, Renal Disease Additional Past Medical History / Comment(s): HX OF LEFT BREAST CANCER, NEUROPATHY FEET & HANDS, RT EYE DIABETIC RETINOPATHY-POOR VISION, ANEMIA, ESRD History of Any Multi-Drug Resistant Organisms: None Reported Past Surgical History: Section, Cholecystectomy, Tonsillectomy, Tubal Ligation Additional Past Surgical History / Comment(s): LEFT BREAST LUMPECTOMY- no chemo, no radiation but took hormone pills, D&C, GERSON CATARACT SX-LENS IMPLANTS. Past Anesthesia/Blood Transfusion Reactions: Previous Problems w/ Anesthesia Additional Past Anesthesia/Blood Transfusion Reaction / Comment(s): STATED "TOOK A LONG TIME WAKING UP FROM ANESTHESIA" Past Psychological History: No Psychological Hx Reported Smoking Status: Former smoker Past Alcohol Use History: None Reported Past Drug Use History: None Reported - Past Family History Mother Family Medical History: No Reported History Brother(s) Family Medical History: Diabetes Mellitus Medications and Allergies Home Medications Medication Instructions Recorded Confirmed Type Acetaminophen Tab [Tylenol] 650 mg PO Q6H PRN MDD 3000mg 08/13/18 10/11/24 History Sevelamer [Renvela] 1,600 mg PO TID 06/19/20 10/11/24 History Apixaban [Eliquis] 2.5 mg PO BID 07/01/20 10/11/24 History Atorvastatin [Lipitor] 80 mg PO HS 12/04/22 10/11/24 History Ergocalciferol (Vitamin D2) 1,250 mcg PO TH 12/04/22 10/11/24 History [Drisdol (50,000 Iu)] Ferrous Sulfate [Iron (65 MG 325 mg PO BID 12/04/22 10/11/24 History Elemental)] Loperamide [Imodium] 2 mg PO Q8H PRN 12/04/22 10/11/24 History Omeprazole 20 mg PO DAILY 12/04/22 10/11/24 History Ondansetron [Zofran] 4 mg PO Q6H PRN 12/04/22 10/11/24 History Thiamine [Vitamin B-1] 100 mg PO DAILY 12/04/22 10/11/24 History L.acidoph,Paracasei, B.lactis 1 cap PO DAILY 02/07/23 10/11/24 History [Probiotic] Losartan Potassium 50 mg PO BID 02/07/23 10/11/24 History hydrALAZINE HCL [Apresoline] 50 mg PO TID 02/07/23 10/11/24 History Acetaminophen [Tylenol 8 Hour] 650 mg PO BID 10/07/24 10/11/24 History Benzonatate [Tessalon Perles] 100 mg PO TID 10/07/24 10/11/24 History Lidocaine-Prilocaine Cream [Emla 1 applic TOPICAL MOWEFR 10/07/24 10/11/24 History Cream 2.5%/2.5%] Melatonin 5 mg PO HS 10/07/24 10/11/24 History Sevelamer [Renvela] 800 mg PO DIRECTED PRN 10/07/24 10/11/24 History Sodium Chloride [Saline Nasal Mist] 1 spray EA NOSTRIL Q2H PRN 10/07/24 10/11/24 History bisacodyL [Dulcolax] 10 mg RECTAL DAILY PRN 10/07/24 10/11/24 History carvediloL [Coreg] 12.5 mg PO BID 10/07/24 10/11/24 History guaiFENesin-DM 100-10MG/5ML 10 ml PO Q6H PRN 10/07/24 10/11/24 History [Robitussin DM] traZODone HCL [Desyrel] 75 mg PO HS 10/07/24 10/11/24 History HYDROcodone/APAP 7.5-325MG [[place] 1 tab PO Q6HR PRN #18 tab 10/10/24 10/11/24 Rx 7.5-325] Daily Nellie 1 tab PO DAILY 10/11/24 10/11/24 History Allergies Allergy/AdvReac Type Severity Reaction Status Date / Time Penicillins Allergy Rash/Hives Verified 10/11/24 00:39 Physical Exam Vitals: Vital Signs Temp Pulse Resp BP Pulse Ox 10/11/24 10:00 74 22 171/66 94 L 10/11/24 09:00 74 20 170/68 94 L 10/11/24 06:54 73 16 141/59 98 10/11/24 05:15 73 18 130/54 93 L 10/11/24 04:04 70 16 139/64 98 10/11/24 02:00 68 18 123/65 99 10/11/24 01:00 68 18 132/65 99 10/11/24 00:43 69 18 138/65 99 10/11/24 00:35 98.2 F 76 18 138/65 95 Intake and Output 10/10/24 10/11/24 10/11/24 22:59 06:59 14:59 Intake Total 57.178 Balance 57.178 Intake: Intake, IV Titration 57.178 Amount Heparin Sod,Pork in 0.45% 57.178 NaCl 25,000 unit In 0.45 % NaCl 1 250ml.bag @ 9.8 UNITS/KG/HR 10.002 mls/hr IV .Q24H [facility] Rx#: [id number] Other: Weight 102.058 kg Limitations: altered mental status General appearance: other (Somnolent but arouses to voice.) Head exam: Present: atraumatic, normocephalic Eye exam: Present: normal appearance. Absent: scleral icterus, conjunctival injection ENT exam: Present: mucous membranes dry Neck exam: Present: full ROM. Absent: tenderness, meningismus Respiratory exam: Present: rhonchi. Absent: respiratory distress, wheezes, rales, stridor, accessory muscle use Cardiovascular Exam: Present: regular rate, normal rhythm, normal heart sounds. Absent: systolic murmur, diastolic murmur, rubs, gallop GI/Abdominal exam: Present: soft. Absent: distended, tenderness, guarding, rebound, mass Extremities exam: Present: normal inspection, normal capillary refill, other (Patient's surgical dressing is clean dry and intact. No marked erythema or warmth.). Absent: pedal edema, calf tenderness Neurological exam: Present: CN II-XII intact, other (Somnolent but arouses to voice.). Absent: oriented X3, motor sensory deficit Skin exam: Present: warm, dry, intact, normal color. Absent: rash Results CBC & Chem 7: 10/11/24 01:06 10/11/24 01:06 Labs: Abnormal Lab Results - Last 24 Hours (Table) 10/11/24 10/11/24 10/11/24 Range/Units 01:06 01:06 01:06 WBC 11.6 H (3.8-10.6) k/uL RBC 2.45 L (3.80-5.40) m/uL Hgb 7.6 L (11.4-16.0) gm/dL Hct 22.3 L (34.0-46.0) % RDW 15.8 H (11.5-15.5) % Plt Count 133 L (150-450) k/uL Neutrophils # 9.3 H (1.3-7.7) k/uL PT 17.7 H (10.0-12.5) sec INR 1.7 H (<1.2) APTT (22.0-30.0) sec Sodium 131 L (137-145) mmol/L Chloride 92 L (98-107) mmol/L BUN 55 H (7-17) mg/dL Creatinine 5.04 H (0.52-1.04) mg/dL Calcium 7.8 L (8.4-10.2) mg/dL AST 423 H (14-36) U/L ALT 76 H (4-34) U/L Troponin I (0.000-0.034) ng/mL Total Protein 5.1 L (6.3-8.2) g/dL Albumin 2.8 L (3.5-5.0) g/dL 10/11/24 10/11/24 10/11/24 Range/Units 01:06 03:50 07:02 WBC (3.8-10.6) k/uL RBC (3.80-5.40) m/uL Hgb (11.4-16.0) gm/dL Hct (34.0-46.0) % RDW (11.5-15.5) % Plt Count (150-450) k/uL Neutrophils # (1.3-7.7) k/uL PT (10.0-12.5) sec INR (<1.2) APTT (22.0-30.0) sec Sodium (137-145) mmol/L Chloride (98-107) mmol/L BUN (7-17) mg/dL Creatinine (0.52-1.04) mg/dL Calcium (8.4-10.2) mg/dL AST (14-36) U/L ALT (4-34) U/L Troponin I 7.940 H* 8.070 H* 7.900 H* (0.000-0.034) ng/mL Total Protein (6.3-8.2) g/dL Albumin (3.5-5.0) g/dL 10/11/24 Range/Units 08:59 WBC (3.8-10.6) k/uL RBC (3.80-5.40) m/uL Hgb (11.4-16.0) gm/dL Hct (34.0-46.0) % RDW (11.5-15.5) % Plt Count (150-450) k/uL Neutrophils # (1.3-7.7) k/uL PT (10.0-12.5) sec INR (<1.2) APTT 153.5 H* (22.0-30.0) sec Sodium (137-145) mmol/L Chloride (98-107) mmol/L BUN (7-17) mg/dL Creatinine (0.52-1.04) mg/dL Calcium (8.4-10.2) mg/dL AST (14-36) U/L ALT (4-34) U/L Troponin I (0.000-0.034) ng/mL Total Protein (6.3-8.2) g/dL Albumin (3.5-5.0) g/dL Assessment and Plan Assessment: 1. Elevated troponin; NSTEMI -Patient will be admitted to telemetry; monitor EKG and trend troponin -Has been placed on IV heparin in ED; aspirin 81 mg daily; send statin therapy with Lipitor; Coreg 12.5 mg twice daily -- Recommend 2D echo -Cardiology is consulted 2. Hypoxia; patient had reports of hypoxia with O2 saturation in 70s; upon arrival to ED patient's O2 saturation was found to be around 98% -CT of the chest was completed which was negative for PE; chest x-ray was negative for any acute process 3. Altered mental status; likely metabolic encephalopathy 4. End-stage renal disease/HD; patient has a dialysis scheduled for Saturday and Saturday -Nephrology is consulted 5. Transaminitis; AST/ALT markedly elevated; likely shock liver from hypotensive episode; we will monitor liver enzymes; order hepatitis profile and hepatic ultrasound if liver enzymes continue to trend up 6. Hypertension; we will continue with home dose of Coreg 12.5 mg twice daily, hydralazine 50 mg 3 times daily and losartan 50 mg twice daily 7. Hyperlipidemia; Lipitor 40 mg p.o. nightly 8. Anemia of chronic disease; globin remains stable at baseline DVT prophylaxis; IV heparin CODE STATUS;
[2024-10-11] MEDS: hydrALAZINE HCL 50 MG TAB PO SCH (18:00)
[2024-10-11] MEDS: carvediloL 12.5 MG TAB PO SCH (18:01)
[2024-10-11] MEDS ORDERED: ATORVASTATIN 80 MG TAB PO SCH (21:00)
[2024-10-11] MEDS: LOSARTAN 50 MG TAB PO SCH (21:43)
[2024-10-11] MEDS: ATORVASTATIN 40 MG TAB PO SCH (21:43)
[2024-10-11] MEDS: traZODone HCL 50 MG TAB PO SCH (21:43)
[2024-10-11] MEDS: MELATONIN 5 MG TABLET PO SCH (21:43)
[2024-10-12 07:04] LABS: Glucose,Whole Blood 85 mg/dL (70-110)
[2024-10-12 08:07] LABS: ALT 84 U/L (4-34); AST 262 U/L (14-36); Albumin 2.9 g/dL (3.5-5.0); Alkaline Phosphatase 78 U/L (38-126); Bilirubin, Delta 0.6 mg/dL (0.0-0.2); Bilirubin,Unconjugated 0.2 mg/dL (0.0-1.1); Total Bilirubin 0.8 mg/dL (0.2-1.3); Total Protein 5.2 g/dL (6.3-8.2)
[2024-10-12] MEDS ORDERED: ASPIRIN 325 MG TAB PO SCH (09:00)
[2024-10-12] MEDS: THIAMINE 100 MG TAB PO SCH (09:07)
[2024-10-12] MEDS: MULTIVITAMINS, THERA 1 EACH TAB PO SCH (09:07)
[2024-10-12] MEDS: ASPIRIN 81 MG PO SCH (09:07)
[2024-10-12] MEDS: PANTOPRAZOLE 40 MG TABLET PO SCH (09:07)
[2024-10-12] MEDS: FERROUS SULFATE 325 MG TAB PO SCH (09:07)
[2024-10-12] MEDS: ISOSORBIDE MONONITRATE ER 30 MG TAB.ER.24H PO SCH (09:11)
[2024-10-12 09:16] LABS: % Iron Saturation 46.94 (12.00-45.00)
--- NOTE | 2024-10-12 09:30 | P.PN ---
Subjective 79-year-old woman who arrives as a transfer from [facility]. Patient has history of end-stage renal disease on hemodialysis, history of dementia, history of previous breast cancer, history of hydrocephalus, history of diabetes, history of congestive heart failure. Patient had reportedly gone to the other facility with complaint of dyspnea. Patient is currently resident of [facility], reportedly there is rehab patient following left hip surgery related fracture. On arrival, the patient not able to contribute any additional history does appear to be delirious versus chronic underlying dementia. Transfer papers from the other hospital reveal that the patient did have chest x-ray which was read as being negative for acute cardiopulmonary process. The patient had CT angiogram of the chest that was reported to be negative for pulmonary embolism. There is trace right pleural effusion. She had the of the abdomen and pelvis which was read as negative for acute abdominal process. The patient had labs revealing mild hyponatremia at 131. BUN 45.5, creatinine 4.45, AST 44, ALT 173. BC revealed white count 14.17, hemoglobin 8, platelets 141. Laded to patient's hip fracture she reportedly had fallen 5 days ago, she had internal fixation here at this facility and then was discharged on 118. On arr ival at the rehab facility, patient reportedly to have blood pressure 80/40 with O2 saturations approximately 70%. 10/12 instructed she can I talk to the nurse from 3 This is a pleasant 79 years old female with past medical history of multiple medical problems including end-stage renal disease. She was recently discharged from the hospital for a fall and left intertrochanteric fracture s/p IM nail of the left femur. Dressing is in place and surgical wound closed with no evidence of cellulitis or discharge Was transferred originally from [facility] for UTI, hypoxia and altered mental status, after she was discharged on for for her hip surgery. HPI patient is a 3 cm also patient has been followed by healthcare management consultant and riprap worker team. Her troponin were significantly elevated but they flat trend This morning patient is still somewhat confused, she knows she in the hospital but thought it is [place], she could tell it is 2024 and September but she could not tell the date or the name of the president. Also patient is drowsy go back to sleep easily but also arouses easily to verbal stimuli. Denies chest pain or dyspnea currently. Patient does not know much of her history she looks confused and drowsy. She looks little bit tachypneic. She feels little dizzy but no significant headache or weakness or numbness. She has difficulty moving her left leg and patient states this is a chronic. Other than the dyspnea she does not have significant chest pain or coughing Patient states that she denies GI symptoms. She is not sure about her urine sy mptoms but no suprapubic pain or flank tenderness Patient chronically on Eliquis but she cannot remember why she takes Eliquis. Patient states that she is not working even before her fall On admission patient was hypoxic oxygen saturation was 88% on room air on 10/04 currently saturating 97% on 2 to 3 L via nasal cannula. Patient states she was not on oxygen at home Patient denies of pain and tolerates diet well. Not sure about her bowel movement Review of systems HEENT: No recent visual problems or hearing problems. Denied any sore throat. HEMATOLOGICAL: Denies any bleeding or petechiae. GENITOURINARY: Denies any burning micturition, frequency, or urgency. MUSCULOSKELETAL/RHEUMATOLOGICAL: Denies any joint pain, swelling, or any muscle pain. ENDOCRINE: Denies any polyuria or polydipsia. Active Medications Generic Name Dose Route Start Last Admin Trade Name Freq PRN Reason Stop Dose Admin Hydrocodone Bitart/Acetaminophen 1 each 10/11/24 11:02 Hydrocodone/Apap 5-325mg 1 Each Tab PO Q6H PRN Pain Aspirin 81 mg 10/12/24 09:00 10/12/24 09:07 Aspirin 81 Mg PO 81 mg DAILY [place] Administration Atorvastatin Calcium 40 mg 10/11/24 21:00 10/11/24 21:43 Atorvastatin 40 Mg Tab PO 40 mg HS [place] Administration Carvedilol 12.5 mg 10/11/24 17:30 10/12/24 09:07 Carvedilol 12.5 Mg Tab PO 12.5 mg BID-W/MEALS [place] Administration Darbepoetin Bryant 40 mcg 10/15/24 09:00 Darbepoetin Bryant 40 Mcg/0.4 Ml Syringe SQ Q7D [place] Ferrous Sulfate 325 mg 10/12/24 09:00 10/12/24 09:07 Ferrous Sulfate 325 Mg Tab PO 325 mg DAILY [place] Administration Hydralazine HCl 50 mg 10/11/24 16:00 10/12/24 09:07 Hydralazine Hcl 50 Mg Tab PO 50 mg TID [place] Administration Hydralazine HCl 10 mg 10/11/24 11:09 Hydralazine Hcl 20 Mg/Ml 1 Ml Vial IVP Q6HR PRN Blood Pressure - High Isosorbide Mononitrate 30 mg 10/12/24 09:00 10/12/24 09:11 Isosorbide Mononitrate Er 30 Mg Tab.Er.24h PO 30 mg DAILY [place] Administration Losartan Potassium 50 mg 10/11/24 21:00 10/12/24 09:07 Losartan 50 Mg Tab PO 50 mg BID [place] Administration Melatonin 5 mg 10/11/24 21:00 10/11/24 21:43 Melatonin 5 Mg Tablet PO 5 mg HS [place] Administration Multivitamins 1 each 10/12/24 09:00 10/12/24 09:07 Multivitamins, Thera 1 Each Tab PO 1 each DAILY [place] Administration Nitroglycerin 0.4 mg 10/11/24 03:37 Nitroglycerin Sl Tabs 0.4 Mg Tab SUBLINGUAL Q5M PRN Chest Pain Pantoprazole Sodium 40 mg 10/12/24 09:00 10/12/24 09:07 Pantoprazole 40 Mg Tablet PO 40 mg DAILY [place] Administration Sevelamer Carbonate 800 mg 10/11/24 11:02 Sevelamer 800 Mg Tab PO BID PRN SNACKS Sevelamer Carbonate 1,600 mg 10/11/24 12:30 10/12/24 09:11 Sevelamer 800 Mg Tab PO 1,600 mg TID-W/MEALS [place] Administration Thiamine HCl 100 mg 10/12/24 09:00 10/12/24 09:07 Thiamine 100 Mg Tab PO 100 mg DAILY [place] Administration Trazodone HCl 75 mg 10/11/24 21:00 10/11/24 21:43 Trazodone Hcl 50 Mg Tab PO 75 mg HS [place] Administration Objective - Vital Signs Vital signs: Vital Signs Temp 97.9 F 10/12/24 09:05 Pulse 73 10/12/24 09:05 Resp 18 10/12/24 09:05 BP 113/50 10/12/24 09:05 Pulse Ox 96 10/12/24 09:05 FiO2 Intake & Output 10/11/24 10/12/24 10/12/24 18:59 06:59 18:59 Intake Total 79.617 Output Total 35 Balance 79.617 -35 Intake: Intake, IV Titration 79.617 Amount Heparin Sod,Pork in 0.45% 79.617 NaCl 25,000 unit In 0.45 % NaCl 1 250ml.bag @ 9.8 UNITS/KG/HR 10.002 mls/hr IV .Q24H [place] Rx#: [id number] Output: Post Void Residual 35 - Exam --GENERAL: The patient is alert and oriented x2-3 partially, not in any acute distress. Well developed, well nourished. Obese HEENT: Pupils are round and equally reacting to light. EOMI. No scleral icterus. No conjunctival pallor. Normocephalic, atraumatic. No pharyngeal erythema. No thyromegaly. CARDIOVASCULAR: S1 and S2 present. No murmurs, rubs, or gallops. -PULMONARY: Chest is clear to auscultation, no wheezing , no crackles. Mildly tachypneic ABDOMEN: Soft, nontender, nondistended, normoactive bowel sounds. No palpable organomegaly. MUSCULOSKELETAL: No joint swelling or deformity. -EXTREMITIES: No cyanosis, clubbing, or pedal edema. Left leg is swollen, glynn rgical wound is closed with dressing in place. No significant discharge or cellulitis NEUROLOGICAL: Gross neurological examination did not reveal any focal deficits. SKIN: No rashes. no petechiae. - Labs CBC & Chem 7: 10/11/24 01:06 10/11/24 01:06 Labs: Abnormal Lab Results - Last 24 Hours (Table) 10/11/24 10/11/24 10/12/24 Range/Units 08:59 18:05 07:23 APTT 153.5 H* 36.8 H (22.0-30.0) sec Delta Bilirubin 0.6 H (0.0-0.2) mg/dL AST 262 H (14-36) U/L ALT 84 H (4-34) U/L Total Protein 5.2 L (6.3-8.2) g/dL Albumin 2.9 L (3.5-5.0) g/dL Assessment and Plan Assessment: 1. Elevated troponin; NSTEMI with flat pattern, evaluated by healthcare management consultant and echocardiogram is pending 2. Hypoxia; patient had reports of hypoxia with O2 saturation in 70s; upon arrival to ED patient's O2 saturation was found to be around 98% 3. Altered mental status; likely metabolic encephalopathy 4. End-stage renal disease/HD; patient has a dialysis scheduled for Saturday and Saturday 5. Transaminitis; AST/ALT markedly elevated; 6. Hypertension; we will continue with home dose of Coreg 12.5 mg twice daily, hydralazine 50 mg 3 times daily and losartan 50 mg twice daily 7. Hyperlipidemia; Lipitor 40 mg p.o. nightly 8. Anemia of chronic disease; globin remains stable at baseline Plan: Cardiology consult Follow-up echocardiogram Continue with aspirin and Coreg Check ABG and ammonia level Repeat CT of the brain, if negative may resume Eliquis If workup is negative for cause for altered mental status we will consider further recommendations Left hip surgical wound looks clean Nephrology consult Cardiology consult Resume home medication GI prophylaxis with Protonix DVT prophylaxis mechanical and anticoagulation if CT of the brain negative Prognosis guarded
--- NOTE | 2024-10-12 10:41 | CT ---
EXAMINATION TYPE: CT brain wo con DATE OF EXAM: 10/12/2024 COMPARISON: CT 3 days earlier CLINICAL INDICATION: Female, 79 years old with history of confusion; [facility], TECHNIQUE: CT scan of the head is performed without contrast. CT DLP: [address] CTDI: 49.3 mGy Automated exposure control for dose reduction was used. FINDINGS: There is no acute intracranial hemorrhage or midline shift identified. There is mild to m oderate diffuse ventricular and sulcal prominence redemonstrated. There is mild to moderate low-atte nuation in the periventricular white matter redemonstrated. Bilateral aphakia again seen. The visuali zed sinuses are clear. IMPRESSION: No acute intracranial hemorrhage or midline shift. No significant change from most recen t prior CT. [facility], , 10/12/2024 10:39 AM
[2024-10-12 11:29] LABS: Chol/HDL Ratio 3.79 Ratio; LDL Cholesterol,Calculated 31.1 mg/dL (0.0-131.0)
[2024-10-12 12:07] LABS: Allen Test Performed? Yes
[2024-10-12 12:09] LABS: ABG Base Excess -1.7 mmol/L; ABG HCO3 25 mmol/L (21-25); ABG Oxygen Saturation 99.8 % (94-97); ABG PCO2 53 mmHg (35-45); ABG PH 7.28 (7.35-7.45); ABG PO2 165 mmHg (83-108); ABG TCO2 27 mmol/L (19-24)
--- NOTE | 2024-10-12 13:04 | P.PN ---
Subjective HISTORY OF PRESENT ILLNESS: 79-year-old female with past medical history of ESRD on hemodialysis, diastolic heart failure, GERD, hypertension, history of breast cancer. She had a mechanical fall resulting in left intertrochanteric fracture. She underwent surgical internal fixation of her hip fracture during last hospital admission. She was discharged to a rehab place yesterday. Apparently patient got more confused and short of breath for which she was sent to the [facility] and thereafter to [facility]. BP 170/68, heart rate 74 bpm Admission Labs: Hemoglobin 7.6, WBC 11.6, BUN 55, creatinine 5.04, troponin elevated at 7.9, repeat 8, repeat 7.9 NT-proBNP 38,000 Admission EKG: Sinus rhythm, heart rate 68 bpm, nonspecific ST segment changes Chest x-ray shows mild increased interstitial marking with no obvious consolidat ion or congestion. Workup at [facility] with CT angiogram did not show any evidence of PE. Prior cardiac testing: Echo from 2019 shows an EF of 55%, moderate concentric LVH, mild MR, mild TR 10/12/2024 Patient examined this morning in the emergency room. Patient remains somewhat confused at the time of examination. She denies any chest pain or pressure. She denies any shortness of breath. Vital signs are stable. Blood pressure 109/60. Bedside telemetry reveals sinus mechanism. PHYSICAL EXAM: VITAL SIGNS: Reviewed. GENERAL: Well-developed in no acute distress. NECK: Supple. No JVD or thyromegaly LUNGS: Respirations even and unlabored. Lungs essentially clear to auscultation bilaterally. HEART: Regular rate and rhythm. S1 and S2 heard. EXTREMITIES: Normal range of motion. No clubbing or cyanosis. Peripheral pulses intact. No lower extremity edema ASSESSMENT: Non-STEMI Acute on chronic hypoxic respiratory failure Metabolic encephalopathy End-stage renal disease on hemodialysis Anemia of chronic disease PLAN: 2D echo pending. Await results. Continue current cardiac medications Continue telemetry monitoring No plans for invasive cardiac procedures at this time Further recommendations pending patient course Nurse practitioner note has been reviewed by physician. Signing provider agrees with the documented findings, assessment, and plan of care documented by ARTIST AND REPERTOIRE MANAGER as a scribe. Objective - Vital Signs Vital signs: Vital Signs Temp 97.9 F 10/12/24 09:05 Pulse 73 10/12/24 09:05 Resp 18 10/12/24 09:05 BP 113/50 10/12/24 09:05 Pulse Ox 96 10/12/24 11:07 FiO2 Intake & Output 10/11/24 10/12/24 10/12/24 18:59 06:59 18:59 Intake Total 79.617 Output Total 35 Balance 79.617 -35 Intake: Intake, IV Titration 79.617 Amount Heparin Sod,Pork in 0.45% 79.617 NaCl 25,000 unit In 0.45 % NaCl 1 250ml.bag @ 9.8 UNITS/KG/HR 10.002 mls/hr IV .Q24H [facility] Rx#: [id number] Output: Post Void Residual 35 - Labs CBC & Chem 7: 10/11/24 01:06 10/11/24 01:06 Labs: Abnormal Lab Results - Last 24 Hours (Table) 10/11/24 10/11/24 10/12/24 Range/Units 08:59 18:05 07:23 APTT 36.8 H (22.0-30.0) sec ABG pH (7.35-7.45) ABG pCO2 (35-45) mmHg ABG pO2 (83-108) mmHg ABG Total CO2 (19-24) mmol/L ABG O2 Saturation (94-97) % Hemoglobin (11.4-16.0) gm/dL TIBC 147 L (228-460) UG/DL % Saturation 46.94 H (12.00-45.00) Transferrin 105.0 L (204.0-354.0) mg/dL Ferritin 69655.0 H (10.0-291.0) ng/mL Delta Bilirubin 0.6 H (0.0-0.2) mg/dL AST 262 H (14-36) U/L ALT 84 H (4-34) U/L Total Protein 5.2 L (6.3-8.2) g/dL Albumin 2.9 L (3.5-5.0) g/dL Triglycerides 150.00 H (0.00-149.00) mg/dL HDL Cholesterol 21.90 L (40.00-60.00) mg/dL 10/12/24 Range/Units 11:59 APTT (22.0-30.0) sec ABG pH 7.28 L (7.35-7.45) ABG pCO2 53 H (35-45) mmHg ABG pO2 165 H (83-108) mmHg ABG Total CO2 27 H (19-24) mmol/L ABG O2 Saturation 99.8 H (94-97) % Hemoglobin 7.0 L* (11.4-16.0) gm/dL TIBC (228-460) UG/DL % Saturation (12.00-45.00) Transferrin (204.0-354.0) mg/dL Ferritin (10.0-291.0) ng/mL Delta Bilirubin (0.0-0.2) mg/dL AST (14-36) U/L ALT (4-34) U/L Total Protein (6.3-8.2) g/dL Albumin (3.5-5.0) g/dL Triglycerides (0.00-149.00) mg/dL HDL Cholesterol (40.00-60.00) mg/dL Microbiology - Last 24 Hours (Table) 10/11/24 01:06 Blood Culture - Preliminary Blood
[2024-10-12] MEDS ORDERED: IPRATROPIUM-ALBUTEROL 3 ML NEB INHALATION PRN (14:13)
--- NOTE | 2024-10-12 15:39 | P.PN ---
Subjective Patient is seen in follow-up for end-stage renal disease. Resting in bed. Scheduled for dialysis today. Vital signs are stable. General: No acute distress. HEENT: Head exam is unremarkable. On nasal cannula. LUNGS: No audible rhonchi or wheezes. HEART: Rate and Rhythm are regular. ABDOMEN: Nontender. EXTREMITITES: No edema. Objective - Vital Signs Vital signs: Vital Signs Temp 97.9 F 10/12/24 09:05 Pulse 65 10/12/24 13:03 Resp 18 10/12/24 13:03 BP 93/42 10/12/24 13:03 Pulse Ox 99 10/12/24 13:03 FiO2 Intake & Output 10/11/24 10/12/24 10/12/24 18:59 06:59 18:59 Intake Total 79.617 Output Total 35 Balance 79.617 -35 Intake: Intake, IV Titration 79.617 Amount Heparin Sod,Pork in 0.45% 79.617 NaCl 25,000 unit In 0.45 % NaCl 1 250ml.bag @ 9.8 UNITS/KG/HR 10.002 mls/hr IV .Q24H [facility] Rx#: [id number] Output: Post Void Residual 35 - Labs CBC & Chem 7: 10/11/24 01:06 10/11/24 01:06 Labs: Abnormal Lab Results - Last 24 Hours (Table) 10/11/24 10/11/24 10/12/24 Range/Units 08:59 18:05 07:23 APTT 36.8 H (22.0-30.0) sec ABG pH (7.35-7.45) ABG pCO2 (35-45) mmHg ABG pO2 (83-108) mmHg ABG Total CO2 (19-24) mmol/L ABG O2 Saturation (94-97) % Hemoglobin (11.4-16.0) gm/dL TIBC 147 L (228-460) UG/DL % Saturation 46.94 H (12.00-45.00) Transferrin 105.0 L (204.0-354.0) mg/dL Ferritin 11334.0 H (10.0-291.0) ng/mL Delta Bilirubin 0.6 H (0.0-0.2) mg/dL AST 262 H (14-36) U/L ALT 84 H (4-34) U/L Total Protein 5.2 L (6.3-8.2) g/dL Albumin 2.9 L (3.5-5.0) g/dL Triglycerides 150.00 H (0.00-149.00) mg/dL HDL Cholesterol 21.90 L (40.00-60.00) mg/dL 10/12/24 Range/Units 11:59 APTT (22.0-30.0) sec ABG pH 7.28 L (7.35-7.45) ABG pCO2 53 H (35-45) mmHg ABG pO2 165 H (83-108) mmHg ABG Total CO2 27 H (19-24) mmol/L ABG O2 Saturation 99.8 H (94-97) % Hemoglobin 7.0 L* (11.4-16.0) gm/dL TIBC (228-460) UG/DL % Saturation (12.00-45.00) Transferrin (204.0-354.0) mg/dL Ferritin (10.0-291.0) ng/mL Delta Bilirubin (0.0-0.2) mg/dL AST (14-36) U/L ALT (4-34) U/L Total Protein (6.3-8.2) g/dL Albumin (3.5-5.0) g/dL Triglycerides (0.00-149.00) mg/dL HDL Cholesterol (40.00-60.00) mg/dL Microbiology - Last 24 Hours (Table) 10/11/24 01:06 Blood Culture - Preliminary Blood Assessment and Plan Plan: Assessment: 1. End-stage renal disease maintained on hemodialysis on Saturday schedule via right upper extremity fistula. 2. Status post fall with left hip fracture status post intramedullary nailing October 08, 2024. 3. Diabetes mellitus. 4. Hypertension with chronic kidney disease. Blood pressure on the lower end. 5. Anemia of chronic kidney disease. Iron replete. On Aranesp. 6. Dyspnea. Currently on nasal cannula. Component of volume overload. CTA showed no PE. Plan: Hemodialysis today. Hold hydralazine and Cozaar for systolic blood pressure less than 120.
--- NOTE | 2024-10-12 16:57 | CA ---
Transthoracic Echo Report Name: Kristin Allred Age: 79 Gender: F : 1945 Exam Date: 10/12/2024 10:12 Exam Location: [facility] Ht (in): 67 Wt (lb): 225 Ordering Physician: Jose Abdul MD ([id number]) Attending/Referring Phys: Fine D[employer] Server Leia Wallace RDCS Procedure CPT: Indications: myocarditis Cardiac Hx: Technical Quality: Fair Contrast 1: Total Dose (mL): Contrast 2: Total Dose (mL): MEASUREMENTS (Male / Female) Normal Values 2D ECHO LV Diastolic Diameter PLAX 4.6 cm 4.2 - 5.9 / 3.9 - 5.3 cm LV Systolic Diameter PLAX 3.1 cm IVS Diastolic Thickness 1.1 cm 0.6 - 1.0 / 0.6 - 0.9 cm LVPW Diastolic Thickness 1.2 cm 0.6 - 1.0 / 0.6 - 0.9 cm LV Relative Wall Thickness 0.5 LVOT Diameter 2.0 cm LA Volume 76.0 cm??? 18 - 58 / 22 - 52 cm??? LA Volume Index 34.0 cm???/m??? 16 - 28 cm???/m??? DOPPLER AV Peak Velocity 207.9 cm/s AV Peak Gradient 17.3 mmHg AV Mean Velocity 132.2 cm/s AV Mean Gradient 8.3 mmHg AV Velocity Time Integral 41.0 cm LVOT Peak Velocity 136.9 cm/s LVOT Peak Gradient 7.5 mmHg LVOT Velocity Time Integral 30.0 cm LVOT Stroke Volume 90.7 cm??? LVOT Stroke Volume Index 42.6 ml/m??? LVOT Cardiac Index 2958.3 cm???/min???m??? AV Area Cont Eq vti 2.2 cm??? AV Area Cont Eq pk 2.0 cm??? MV Peak Velocity 141.0 cm/s MV Peak Gradient 8.0 mmHg MV Mean Velocity 93.0 cm/s MV Mean Gradient 3.9 mmHg MV Velocity Time Integral 39.1 cm MV Area PHT 2.9 cm??? Mitral E Point Velocity 120.7 cm/s Mitral A Point Velocity 113.0 cm/s Mitral E to A Ratio 1.1 MV Deceleration Time 258.0 ms TR Peak Velocity 363.4 cm/s TR Peak Gradient 52.8 mmHg Right Atrial Pressure 10.0 mmHg Pulmonary Artery Systolic Pressu 62.8 mmHg Right Ventricular Systolic Press 62.8 mmHg PV Peak Velocity 94.7 cm/s PV Peak Gradient 3.6 mmHg FINDINGS Left Ventricle Left ventricular ejection fraction is estimated at 55-60 %. Mildly increased septal wall thickness. Mildly increased posterior wall thickness. Left ventricular cavity size normal. No obvious regional wall motion abnormalities. Right Ventricle Right ventricular dilatation with mildly reduced function. Severe pulmonary hypertension. Right Atrium Right atrial dilatation. Left Atrium Mildly increased left atrial volume. Mildly increased left atrial area. Mitral Valve Structurally normal mitral valve. No evidence for mitral valve prolapse. No mitral stenosis. Trace mitral regurgitation. Aortic Valve Trileaflet aortic valve. Aortic valve sclerosis. No aortic valve stenosis or regurgitation. Tricuspid Valve Structurally normal tricuspid valve. No tricuspid stenosis. Moderate tricuspid regurgitation. Pulmonic Valve Structurally normal pulmonic valve. No pulmonic stenosis. Mild pulmonic regurgitation. Pericardium No pericardial effusion. Aorta Normal size aortic root and proximal ascending aorta. CONCLUSIONS Left ventricular ejection fraction 55-60% RVSP 62 Mildly increased left ventricular wall thickness Mildly dilated right ventricle with mild hypokinesis Mildly dilated left atrium Trace mitral regurgitation Moderate tricuspid regurgitation No pericardial effusion Previewed by: Dr. Brendon Gallo DO (Electronically Signed) Final Date: 12 October 2024 16:56
[2024-10-12] MEDS: IPRATROPIUM-ALBUTEROL 3 ML NEB INHALATION STA (17:26)
[2024-10-13 06:19] LABS: Glucose,Whole Blood 54 mg/dL (70-110)
[2024-10-13 06:38] LABS: Glucose,Whole Blood 60 mg/dL (70-110)
[2024-10-13 07:06] LABS: Glucose,Whole Blood 93 mg/dL (70-110)
[2024-10-13] MEDS: HYDROcodone/APAP 5-325MG 1 EACH TAB PO PRN (10:52)
[2024-10-13 11:34] LABS: Glucose,Whole Blood 112 mg/dL (70-110)
[2024-10-13 11:35] LABS: Anisocytosis Slight; Basophils % (A) 0 %; Eosinophils # (A) 0.2 k/uL (0-0.7); Eosinophils % (A) 2 %; HCT 21.1 % (34.0-46.0); Lymphocytes # (A) 0.7 k/uL (1.0-4.8); Lymphocytes % (A) 8 %; MCHC 33.4 g/dL (31.0-37.0); MCV 92.8 fL (80.0-100.0); Mean Platelet Volume 8.5; Monocytes # (A) 0.5 k/uL (0-1.0); Monocytes % (A) 6 %; Neutrophils # (A) 7.8 k/uL (1.3-7.7); Neutrophils % (A) 84 %; Platelet Count 142 k/uL (150-450); RBC 2.27 m/uL (3.80-5.40); RDW 16.1 % (11.5-15.5); WBC 9.3 k/uL (3.8-10.6)
--- NOTE | 2024-10-13 11:57 | P.CNOR ---
History of Present Illness - HPI Consult date: 10/13/24 Requesting physician: Willian E Sheet Consult reason: other (recent hip surgery with you) History of present illness: Patient is an 79-year-old female who re-presented to the hospital at [facility] 10/11/2024 as a transfer from [facility]. Patient has history of end-stage renal disease on hemodialysis, history of dementia previous breast cancer history of diabetes and CHF. Patient was transferred from [facility] 09/09/2025 status post left hip IM nail procedure. Patient patient was transferred to [facility] from [facility] due to dyspnea. Orthopedics was consulted due to recent hip surgery. Patient did have left hip IM nail surgery performed by Dr. Caceres on 10/08/2024. Patient was then discharged to rehab facility on 09/09/2025. Patient was seen at bedside this morning lying in the semirecumbent position with dressing present over left hip. There does appear to be some spotting. Patient says she is still having some hip pain at this time however but has been improving over the past few days. Patient says she has been just weightbearing to transferring to wheelchair and back in the bed. She says she has been working with therapy as well. Patient denies any other orthopedic complaints at this time. Past Medical History Past Medical History: Coronary Artery Disease (CAD), Cancer, Heart Failure, CVA/TIA, Diabetes Mellitus, Eye Disorder, GERD/Reflux, Hyperlipidemia, Hypertension, Osteoarthritis (OA), Pneumonia, Renal Disease Additional Past Medical History / Comment(s): HX OF LEFT BREAST CANCER, NEUROPATHY FEET & HANDS, RT EYE DIABETIC RETINOPATHY-POOR VISION, ANEMIA, ESRD History of Any Multi-Drug Resistant Organisms: None Reported Past Surgical History: Section, Cholecystectomy, Tonsillectomy, Tubal Ligation Additional Past Surgical History / Comment(s): LEFT BREAST LUMPECTOMY- no chemo, no radiation but took hormone pills, D&C, GERSON CATARACT SX-LENS IMPLANTS. Past Anesthesia/Blood Transfusion Reactions: Previous Problems w/ Anesthesia Additional Past Anesthesia/Blood Transfusion Reaction / Comm: STATED "TOOK A LONG TIME WAKING UP FROM ANESTHESIA" Past Psychological History: No Psychological Hx Reported Smoking Status: Former smoker Past Alcohol Use History: None Reported Additional Past Alcohol Use History / Comment(s): SMOKED 1959 AND QUIT 1962 SMOKED Past Drug Use History: None Reported - Past Family History Mother Family Medical History: No Reported History Brother(s) Family Medical History: Diabetes Mellitus Medications and Allergies Home Medications Medication Instructions Recorded Confirmed Type Acetaminophen Tab [Tylenol] 650 mg PO Q6H PRN MDD 3000mg 08/13/18 10/11/24 History Sevelamer [Renvela] 1,600 mg PO TID 06/19/20 10/11/24 History Apixaban [Eliquis] 2.5 mg PO BID 07/01/20 10/11/24 History Atorvastatin [Lipitor] 80 mg PO HS 12/04/22 10/11/24 History Ergocalciferol (Vitamin D2) 1,250 mcg PO TH 12/04/22 10/11/24 History [Drisdol (50,000 Iu)] Ferrous Sulfate [Iron (65 MG 325 mg PO BID 12/04/22 10/11/24 History Elemental)] Loperamide [Imodium] 2 mg PO Q8H PRN 12/04/22 10/11/24 History Omeprazole 20 mg PO DAILY 12/04/22 10/11/24 History Ondansetron [Zofran] 4 mg PO Q6H PRN 12/04/22 10/11/24 History Thiamine [Vitamin B-1] 100 mg PO DAILY 12/04/22 10/11/24 History L.acidoph,Paracasei, B.lactis 1 cap PO DAILY 02/07/23 10/11/24 History [Probiotic] Losartan Potassium 50 mg PO BID 02/07/23 10/11/24 History hydrALAZINE HCL [Apresoline] 50 mg PO TID 02/07/23 10/11/24 History Acetaminophen [Tylenol 8 Hour] 650 mg PO BID 10/07/24 10/11/24 History Benzonatate [Tessalon Perles] 100 mg PO TID 10/07/24 10/11/24 History Lidocaine-Prilocaine Cream [Emla 1 applic TOPICAL MOWEFR 10/07/24 10/11/24 History Cream 2.5%/2.5%] Melatonin 5 mg PO HS 10/07/24 10/11/24 History Sevelamer [Renvela] 800 mg PO DIRECTED PRN 10/07/24 10/11/24 History Sodium Chloride [Saline Nasal Mist] 1 spray EA NOSTRIL Q2H PRN 10/07/24 10/11/24 History bisacodyL [Dulcolax] 10 mg RECTAL DAILY PRN 10/07/24 10/11/24 History carvediloL [Coreg] 12.5 mg PO BID 10/07/24 10/11/24 History guaiFENesin-DM 100-10MG/5ML 10 ml PO Q6H PRN 10/07/24 10/11/24 History [Robitussin DM] traZODone HCL [Desyrel] 75 mg PO HS 10/07/24 10/11/24 History HYDROcodone/APAP 7.5-325MG [[place] 1 tab PO Q6HR PRN #18 tab 10/10/24 10/11/24 Rx 7.5-325] Daily Nellie 1 tab PO DAILY 10/11/24 10/11/24 History Allergies Allergy/AdvReac Type Severity Reaction Status Date / Time Penicillins Allergy Rash/Hives Verified 10/11/24 00:39 Physical Examination Inspection: Right upper extremity AV fistula present. opti-foam dressings taken down. New dressings placed over incision. Incision appears to be healing well. Loly well aligned and intact. There is some swelling present in the left hip. Sensation: Equal, symmetric, bilat intact throughout extremities on exam. Palpation: There is some moderate tenderness to palpation diffusely throughout the left hip on exam. Nontender to palpation on rest of exam. Range of motion: Patient does have good range of motion throughout bilateral upper extremities on exam and right lower extremity exam. Patient does have limited range of motion left lower extremity on exam due to the injury of the left hip. Motor: 4/5 in all major motor groups in bilateral upper extremities and right lower extremity on exam. Patient is able to wiggle the toes in the left foot. Limited motor exam rest of the left lower extremity due to the recent surgery. Special test: Negative Homans bilaterally. Neurovascular: Radial pulse intact, 2+ bilaterally. Cap refill under 3 seconds in digits of upper extremities. DP pulses palpable bilaterally Results - Labs Labs: Abnormal Lab Results - Last 24 Hours (Table) 10/12/24 10/13/24 10/13/24 Range/Units 11:59 06:18 06:37 RBC (3.80-5.40) m/uL Hgb (11.4-16.0) gm/dL Hct (34.0-46.0) % RDW (11.5-15.5) % Plt Count (150-450) k/uL Neutrophils # (1.3-7.7) k/uL Lymphocytes # (1.0-4.8) k/uL ABG pH 7.28 L (7.35-7.45) ABG pCO2 53 H (35-45) mmHg ABG pO2 165 H (83-108) mmHg ABG Total CO2 27 H (19-24) mmol/L ABG O2 Saturation 99.8 H (94-97) % Hemoglobin 7.0 L* (11.4-16.0) gm/dL POC Glucose (mg/dL) 54 L 60 L (70-110) mg/dL 10/13/24 10/13/24 Range/Units 10:53 11:33 RBC 2.27 L (3.80-5.40) m/uL Hgb 7.0 L (11.4-16.0) gm/dL Hct 21.1 L (34.0-46.0) % RDW 16.1 H (11.5-15.5) % Plt Count 142 L (150-450) k/uL Neutrophils # 7.8 H (1.3-7.7) k/uL Lymphocytes # 0.7 L (1.0-4.8) k/uL ABG pH (7.35-7.45) ABG pCO2 (35-45) mmHg ABG pO2 (83-108) mmHg ABG Total CO2 (19-24) mmol/L ABG O2 Saturation (94-97) % Hemoglobin (11.4-16.0) gm/dL POC Glucose (mg/dL) 112 H (70-110) mg/dL Microbiology - Last 24 Hours (Table) 10/11/24 01:06 Blood Culture - Preliminary Blood H & H 10/11/24 10/13/24 Range/Units 01:06 10:53 Hgb 7.6 L 7.0 L (11.4-16.0) gm/dL Hct 22.3 L 21.1 L (34.0-46.0) % Coagulation 10/11/24 Range/Units 01:06 INR 1.7 H (<1.2) Result Diagrams: 10/13/24 10:53 10/11/24 01:06 Assessment and Plan Assessment: 1. History of recent left hip IM nail surgery -Postop day 5 status post left hip IM nail surgery 2. Dyspnea; end-stage renal disease Plan: 1. Left hip IT fracture status post fall -surgery performed , 10/08/2024left hip IM nail. Dressing changed at bedside this morning. Negative for any active drainage. Incisions appear to be healing well. [place] well aligned and intact. Assess dressings daily and change as needed. Patient stable from orthopedic standpoint for discharge from the hospital. Patient to be weightbearing as tolerated only to transfer from bed into wheelchair and back. Follow-up in the office in 1 week for first orthopedic postoperative visit. Pain medication as needed. PT/OT recommendations. Orthopedics is signing off at this time. We will defer rest and management during the patient's stay to medicine. Please do not hesitate to contact us for any further questions 2. Appreciate medical, cardiology, nephrology management 3. Pain management - norco; tylenol 4. DVT prophylaxis -aspirin 5. GI prophylaxis -senna 6. PT/OT -weightbearing only during transfers from bed to wheelchair and back 7. Encourage incentive spirometer use 8. Appreciate consult Time with Patient: Less than 30
[2024-10-13 11:59] LABS: African American GFR (CKD) 10 (>60 ml/min/1.73 sqM); Anion Gap 6 mmol/L; Blood Urea Nitrogen 37 mg/dL (7-17); Calcium 7.6 mg/dL (8.4-10.2); Carbon Dioxide 34 mmol/L (22-30); Chloride 90 mmol/L (98-107); Glucose 101 mg/dL (74-99); Non-African American GFR(CKD) 9 (>60 ml/min/1.73 sqM); Potassium 3.7 mmol/L (3.5-5.1); Sodium 130 mmol/L (137-145)
--- NOTE | 2024-10-13 13:42 | P.PN ---
Subjective HISTORY OF PRESENT ILLNESS: 79-year-old female with past medical history of ESRD on hemodialysis, diastolic heart failure, GERD, hypertension, history of breast cancer. She had a mechanical fall resulting in left intertrochanteric fracture. She underwent surgical internal fixation of her hip fracture during last hospital admission. She was discharged to a rehab place yesterday. Apparently patient got more confused and short of breath for which she was sent to the [facility] and thereafter to [facility]. BP 170/68, heart rate 74 bpm Admission Labs: Hemoglobin 7.6, WBC 11.6, BUN 55, creatinine 5.04, troponin elevated at 7.9, repeat 8, repeat 7.9 NT-proBNP 38,000 Admission EKG: Sinus rhythm, heart rate 68 bpm, nonspecific ST segment changes Chest x-ray shows mild increased interstitial marking with no obvious consolidat ion or congestion. Workup at [facility] with CT angiogram did not show any evidence of PE. Prior cardiac testing: Echo from 2019 shows an EF of 55%, moderate concentric LVH, mild MR, mild TR 10/12/2024 Patient examined this morning in the emergency room. Patient remains somewhat confused at the time of examination. She denies any chest pain or pressure. She denies any shortness of breath. Vital signs are stable. Blood pressure 109/60. Bedside telemetry reveals sinus mechanism. 10/13/2024 Patient examined this morning at the bedside. Patient currently denies any chest pain or pressure. She denies any shortness of breath. Echocardiogram completed revealing ejection fraction 55 to 60%, no obvious regional wall motion abnormalities, trace MR, moderate TR, no pericardial effusion PHYSICAL EXAM: VITAL SIGNS: Reviewed. GENERAL: Well-developed in no acute distress. NECK: Supple. No JVD or thyromegaly LUNGS: Respirations even and unlabored. Lungs essentially clear to auscultation bilaterally. HEART: Regular rate and rhythm. S1 and S2 heard. EXTREMITIES: Normal range of motion. No clubbing or cyanosis. Peripheral pulses intact. No lower extremity edema ASSESSMENT: Non-STEMI Acute on chronic hypoxic respiratory failure Metabolic encephalopathy End-stage renal disease on hemodialysis Anemia of chronic disease Severe pulmonary hypertension, may be secondary to end-stage renal disease PLAN: Continue current cardiac medications Continue telemetry monitoring No plans for invasive cardiac procedures at this time Further recommendations pending patient course Nurse practitioner note has been reviewed by physician. Signing provider agrees with the documented findings, assessment, and plan of care documented by ASSISTANT CASINO SHIFT MANAGER as a scribe. Objective - Vital Signs Vital signs: Vital Signs Temp 97.8 F 10/13/24 12:07 Pulse 72 10/13/24 12:07 Resp 18 10/13/24 12:07 BP 109/71 10/13/24 12:07 Pulse Ox 94 L 10/13/24 12:07 FiO2 Intake & Output 10/12/24 10/13/24 10/13/24 18:59 06:59 18:59 Intake Total 400 Output Total 3600 Balance -3200 Weight 85 kg Intake: Hemodialysis 400 Output: Hemodialysis 2000 Hemodialysis Net Amount 1600 - Labs CBC & Chem 7: 10/13/24 10:53 10/13/24 10:53 Labs: Abnormal Lab Results - Last 24 Hours (Table) 10/13/24 10/13/24 10/13/24 Range/Units 06:18 06:37 10:53 RBC 2.27 L (3.80-5.40) m/uL Hgb 7.0 L (11.4-16.0) gm/dL Hct 21.1 L (34.0-46.0) % RDW 16.1 H (11.5-15.5) % Plt Count 142 L (150-450) k/uL Neutrophils # 7.8 H (1.3-7.7) k/uL Lymphocytes # 0.7 L (1.0-4.8) k/uL Sodium (137-145) mmol/L Chloride (98-107) mmol/L Carbon Dioxide (22-30) mmol/L BUN (7-17) mg/dL Creatinine (0.52-1.04) mg/dL Glucose (74-99) mg/dL POC Glucose (mg/dL) 54 L 60 L (70-110) mg/dL Calcium (8.4-10.2) mg/dL 10/13/24 10/13/24 Range/Units 10:53 11:33 RBC (3.80-5.40) m/uL Hgb (11.4-16.0) gm/dL Hct (34.0-46.0) % RDW (11.5-15.5) % Plt Count (150-450) k/uL Neutrophils # (1.3-7.7) k/uL Lymphocytes # (1.0-4.8) k/uL Sodium 130 L (137-145) mmol/L Chloride 90 L (98-107) mmol/L Carbon Dioxide 34 H (22-30) mmol/L BUN 37 H (7-17) mg/dL Creatinine 4.44 H (0.52-1.04) mg/dL Glucose 101 H (74-99) mg/dL POC Glucose (mg/dL) 112 H (70-110) mg/dL Calcium 7.6 L (8.4-10.2) mg/dL Microbiology - Last 24 Hours (Table) 10/11/24 01:06 Blood Culture - Preliminary Blood
[2024-10-13 16:49] LABS: Glucose,Whole Blood 153 mg/dL (70-110)
--- NOTE | 2024-10-13 18:33 | P.PN ---
Subjective 79-year-old woman who arrives as a transfer from [facility]. Patient has history of end-stage renal disease on hemodialysis, history of dementia, history of previous breast cancer, history of hydrocephalus, history of diabetes, history of congestive heart failure. Patient had reportedly gone to the other facility with complaint of dyspnea. Patient is currently resident of [facility], reportedly there is rehab patient following left hip surgery related fracture. On arrival, the patient not able to contribute any additional history does appear to be delirious versus chronic underlying dementia. Transfer papers from the other hospital reveal that the patient did have chest x-ray which was read as being negative for acute cardiopulmonary process. The patient had CT angiogram of the chest that was reported to be negative for pulmonary embolism. There is trace right pleural effusion. She had the of the abdomen and pelvis which was read as negative for acute abdominal process. The patient had labs revealing mild hyponatremia at 131. BUN 45.5, creatinine 4.45, AST 44, ALT 173. BC revealed white count 14.17, hemoglobin 8, platelets 141. Laded to patient's hip fracture she reportedly had fallen 5 days ago, she had internal fixation here at this facility and then was discharged on 118. On arr ival at the rehab facility, patient reportedly to have blood pressure 80/40 with O2 saturations approximately 70%. 10/12 instructed she can I talk to the nurse from 3 This is a pleasant 79 years old female with past medical history of multiple medical problems including end-stage renal disease. She was recently discharged from the hospital for a fall and left intertrochanteric fracture s/p IM nail of the left femur. Dressing is in place and surgical wound closed with no evidence of cellulitis or discharge Was transferred originally from [facility] for UTI, hypoxia and altered mental status, after she was discharged on for for her hip surgery. HPI patient is a 3 cm also patient has been followed by environmental assistant and audio narrator team. Her troponin were significantly elevated but they flat trend This morning patient is still somewhat confused, she knows she in the hospital but thought it is [place], she could tell it is 2024 and September but she could not tell the date or the name of the president. Also patient is drowsy go back to sleep easily but also arouses easily to verbal stimuli. Denies chest pain or dyspnea currently. Patient does not know much of her history she looks confused and drowsy. She looks little bit tachypneic. She feels little dizzy but no significant headache or weakness or numbness. She has difficulty moving her left leg and patient states this is a chronic. Other than the dyspnea she does not have significant chest pain or coughing Patient states that she denies GI symptoms. She is not sure about her urine sy mptoms but no suprapubic pain or flank tenderness Patient chronically on Eliquis but she cannot remember why she takes Eliquis. Patient states that she is not working even before her fall On admission patient was hypoxic oxygen saturation was 88% on room air on 10/04 currently saturating 97% on 2 to 3 L via nasal cannula. Patient states she was not on oxygen at home Patient denies of pain and tolerates diet well. Not sure about her bowel movement 10/13/2023 Patient is doing well today She is awake and alert denies chest pain or dyspnea. No other new complaint. She feels generally weak and tired Her left leg wound looks clean and healing. Swelling in the left side around the surgical also improving. Patient evaluated by orthopedic team and they recommended to keep monitoring and follow-up outpatient in 1 week Her hemoglobin today dropped to 7.0 from 7.6 yesterday. Anemia workup done 2 days ago showing evidence of anemia of chronic disease with iron studies. No further anemia studies therefore we are going to order B12 and folate tomorrow May consider giving 1 unit of blood transfusion with hemodialysis tomorrow after we discussed up with nephrology team Patient with no evidence of bleeding currently Continue with aspirin and Coreg At looks like hypoxia improving, cardiology following for high troponin suspicious for non-STEMI but patient with no chest pain or dyspnea currently Liver enzymes trending down, keep checking them tomorrow. Review of systems HEENT: No recent visual problems or hearing problems. Denied any sore throat. HEMATOLOGICAL: Denies any bleeding or petechiae. GENITOURINARY: Denies any burning micturition, frequency, or urgency. MUSCULOSKELETAL/RHEUMATOLOGICAL: Denies any joint pain, swelling, or any muscle pain. ENDOCRINE: Denies any polyuria or polydipsia. Active Medications Generic Name Dose Route Start Last Admin Trade Name Freq PRN Reason Stop Dose Admin Hydrocodone Bitart/Acetaminophen 1 each 10/11/24 11:02 10/13/24 10:52 Hydrocodone/Apap 5-325mg 1 Each Tab PO 1 each Q6H PRN Administration Pain Albuterol/Ipratropium 3 ml 10/12/24 14:13 Ipratropium-Albuterol 3 Ml Neb INHALATION RT-QID PRN Shortness Of Breath Or Wheezing Aspirin 81 mg 10/12/24 09:00 10/13/24 08:20 Aspirin 81 Mg PO 81 mg DAILY [place] Administration Atorvastatin Calcium 40 mg 10/11/24 21:00 10/12/24 22:00 Atorvastatin 40 Mg Tab PO Not Given HS [facility] Carvedilol 12.5 mg 10/11/24 17:30 10/13/24 16:27 Carvedilol 12.5 Mg Tab PO 12.5 mg BID-W/MEALS [facility] Administration Darbepoetin Bryant 40 mcg 10/15/24 09:00 Darbepoetin [place] 40 Mcg/0.4 Ml Syringe SQ Q7D [facility] Ferrous Sulfate 325 mg 10/12/24 09:00 10/13/24 08:20 Ferrous Sulfate 325 Mg Tab PO 325 mg DAILY [place] Administration Hydralazine HCl 50 mg 10/11/24 16:00 10/13/24 16:27 Hydralazine Hcl 50 Mg Tab PO 50 mg TID [facility] Administration Hydralazine HCl 10 mg 10/11/24 11:09 Hydralazine Hcl 20 Mg/Ml 1 Ml Vial IVP Q6HR PRN Blood Pressure - High Isosorbide Mononitrate 30 mg 10/12/24 09:00 10/13/24 08:21 Isosorbide Mononitrate Er 30 Mg Tab.Er.24h PO 30 mg DAILY [facility] Administration Losartan Potassium 50 mg 10/11/24 21:00 10/13/24 08:21 Losartan 50 Mg Tab PO 50 mg BID [facility] Administration Melatonin 5 mg 10/11/24 21:00 10/12/24 22:00 Melatonin 5 Mg Tablet PO Not Given HS [facility] Multivitamins 1 each 10/12/24 09:00 10/13/24 08:21 Multivitamins, Thera 1 Each Tab PO 1 each DAILY [place] Administration Nitroglycerin 0.4 mg 10/11/24 03:37 Nitroglycerin Sl Tabs 0.4 Mg Tab SUBLINGUAL Q5M PRN Chest Pain Pantoprazole Sodium 40 mg 10/12/24 09:00 10/13/24 08:21 Pantoprazole 40 Mg Tablet PO 40 mg DAILY [place] Administration Sevelamer Carbonate 800 mg 10/11/24 11:02 Sevelamer 800 Mg Tab PO BID PRN SNACKS Sevelamer Carbonate 1,600 mg 10/11/24 12:30 10/13/24 16:26 Sevelamer 800 Mg Tab PO 1,600 mg TID-W/MEALS [place] Administration Thiamine HCl 100 mg 10/12/24 09:00 10/13/24 08:21 Thiamine 100 Mg Tab PO 100 mg DAILY [place] Administration Trazodone HCl 75 mg 10/11/24 21:00 10/12/24 22:00 Trazodone Hcl 50 Mg Tab PO Not Given HS [place] Objective - Vital Signs Vital signs: Vital Signs Temp 98.3 F 10/13/24 15:32 Pulse 73 10/13/24 15:32 Resp 18 10/13/24 15:32 BP 125/65 10/13/24 15:32 Pulse Ox 97 10/13/24 15:32 FiO2 Intake & Output 10/12/24 10/13/24 10/13/24 18:59 06:59 18:59 Intake Total 400 Output Total 3600 Balance -3200 Weight 85 kg Intake: Hemodialysis 400 Output: Hemodialysis 2000 Hemodialysis Net Amount 1600 - Exam --GENERAL: The patient is alert and oriented x2-3 partially, not in any acute distress. Well developed, well nourished. Obese HEENT: Pupils are round and equally reacting to light. EOMI. No scleral icterus. No conjunctival pallor. Normocephalic, atraumatic. No pharyngeal erythema. No thyromegaly. CARDIOVASCULAR: S1 and S2 present. No murmurs, rubs, or gallops. -PULMONARY: Chest is clear to auscultation, no wheezing , no crackles. Mildly tachypneic ABDOMEN: Soft, nontender, nondistended, normoactive bowel sounds. No palpable organomegaly. MUSCULOSKELETAL: No joint swelling or deformity. -EXTREMITIES: No cyanosis, clubbing, or pedal edema. Left leg is swollen, glynn rgical wound is closed with dressing in place. No significant discharge or cellulitis NEUROLOGICAL: Gross neurological examination did not reveal any focal deficits. SKIN: No rashes. no petechiae. - Labs CBC & Chem 7: 10/13/24 10:53 10/13/24 10:53 Labs: Abnormal Lab Results - Last 24 Hours (Table) 10/13/24 10/13/24 10/13/24 Range/Units 06:18 06:37 10:53 RBC 2.27 L (3.80-5.40) m/uL Hgb 7.0 L (11.4-16.0) gm/dL Hct 21.1 L (34.0-46.0) % RDW 16.1 H (11.5-15.5) % Plt Count 142 L (150-450) k/uL Neutrophils # 7.8 H (1.3-7.7) k/uL Lymphocytes # 0.7 L (1.0-4.8) k/uL Sodium (137-145) mmol/L Chloride (98-107) mmol/L Carbon Dioxide (22-30) mmol/L BUN (7-17) mg/dL Creatinine (0.52-1.04) mg/dL Glucose (74-99) mg/dL POC Glucose (mg/dL) 54 L 60 L (70-110) mg/dL Calcium (8.4-10.2) mg/dL 10/13/24 10/13/24 10/13/24 Range/Units 10:53 11:33 16:48 RBC (3.80-5.40) m/uL Hgb (11.4-16.0) gm/dL Hct (34.0-46.0) % RDW (11.5-15.5) % Plt Count (150-450) k/uL Neutrophils # (1.3-7.7) k/uL Lymphocytes # (1.0-4.8) k/uL Sodium 130 L (137-145) mmol/L Chloride 90 L (98-107) mmol/L Carbon Dioxide 34 H (22-30) mmol/L BUN 37 H (7-17) mg/dL Creatinine 4.44 H (0.52-1.04) mg/dL Glucose 101 H (74-99) mg/dL POC Glucose (mg/dL) 112 H 153 H (70-110) mg/dL Calcium 7.6 L (8.4-10.2) mg/dL Microbiology - Last 24 Hours (Table) 10/11/24 01:06 Blood Culture - Preliminary Blood Assessment and Plan Assessment: 1. Elevated troponin; NSTEMI with flat pattern, evaluated by environmental assistant and echocardiogram is showing ejection fraction 55 to 60% with RVSP 62 and moderate tricuspid regurgitation 2. Hypoxia; patient had reports of hypoxia with O2 saturation in 70s; upon arrival to ED patient's O2 saturation was found to be around 98%. Improvement 3. Altered mental status; likely metabolic encephalopathy. Resolved 4. End-stage renal disease/HD; patient has a dialysis scheduled for Saturday and Saturday 5. Transaminitis; AST/ALT markedly elevated; 6. Hypertension; we will continue with home dose of Coreg 12.5 mg twice daily, hydralazine 50 mg 3 times daily and losartan 50 mg twice daily 7. Hyperlipidemia; Lipitor 40 mg p.o. nightly 8. Anemia of chronic disease; hemoglobin on the low side may consider 1 unit of blood transfusion. Iron studies showing anemia of chronic disease, check vitamin B12 and folate 9. Status post fall and recent hip fracture status post IM nail on 10/08/2024 evaluated by orthopedic team again during this admission and recommended to continue follow-up as an outpatient in 1 week GI prophylaxis: Pepcid DVT prophylaxis: Mechanical and aspirin per orthopedic team recommendation Prognosis is guarded Plan: Cardiology consult Follow-up echocardiogram Continue with aspirin and Coreg Check ABG and ammonia level Repeat CT of the brain, if negative may resume Eliquis If workup is negative for cause for altered mental status we will consider further recommendations Left hip surgical wound looks clean Nephrology consult Cardiology consult Resume home medication GI prophylaxis with Protonix DVT prophylaxis mechanical and anticoagulation if CT of the brain negative Prognosis guarded
[2024-10-13 20:20] LABS: Glucose,Whole Blood 173 mg/dL (70-110)
--- NOTE | 2024-10-13 21:01 | P.PN ---
Subjective Patient is seen for follow-up for end-stage renal disease. No significant complaints today. Scheduled for hemodialysis in a.m. Objective - Vital Signs Vital signs: Vital Signs Temp 98.3 F 10/13/24 15:32 Pulse 73 10/13/24 15:32 Resp 18 10/13/24 15:32 BP 125/65 10/13/24 15:32 Pulse Ox 97 10/13/24 15:32 FiO2 Intake & Output 10/13/24 10/13/24 10/14/24 06:59 18:59 06:59 Intake Total 400 Output Total 3600 Balance -3200 Weight 85 kg Intake: Hemodialysis 400 Output: Hemodialysis 2000 Hemodialysis Net Amount 1600 Other: # Voids 0 - Labs CBC & Chem 7: 10/13/24 10:53 10/13/24 10:53 Labs: Abnormal Lab Results - Last 24 Hours (Table) 10/13/24 10/13/24 10/13/24 Range/Units 06:18 06:37 10:53 RBC 2.27 L (3.80-5.40) m/uL Hgb 7.0 L (11.4-16.0) gm/dL Hct 21.1 L (34.0-46.0) % RDW 16.1 H (11.5-15.5) % Plt Count 142 L (150-450) k/uL Neutrophils # 7.8 H (1.3-7.7) k/uL Lymphocytes # 0.7 L (1.0-4.8) k/uL Sodium (137-145) mmol/L Chloride (98-107) mmol/L Carbon Dioxide (22-30) mmol/L BUN (7-17) mg/dL Creatinine (0.52-1.04) mg/dL Glucose (74-99) mg/dL POC Glucose (mg/dL) 54 L 60 L (70-110) mg/dL Calcium (8.4-10.2) mg/dL 10/13/24 10/13/24 10/13/24 Range/Units 10:53 11:33 16:48 RBC (3.80-5.40) m/uL Hgb (11.4-16.0) gm/dL Hct (34.0-46.0) % RDW (11.5-15.5) % Plt Count (150-450) k/uL Neutrophils # (1.3-7.7) k/uL Lymphocytes # (1.0-4.8) k/uL Sodium 130 L (137-145) mmol/L Chloride 90 L (98-107) mmol/L Carbon Dioxide 34 H (22-30) mmol/L BUN 37 H (7-17) mg/dL Creatinine 4.44 H (0.52-1.04) mg/dL Glucose 101 H (74-99) mg/dL POC Glucose (mg/dL) 112 H 153 H (70-110) mg/dL Calcium 7.6 L (8.4-10.2) mg/dL 10/13/24 Range/Units 20:19 RBC (3.80-5.40) m/uL Hgb (11.4-16.0) gm/dL Hct (34.0-46.0) % RDW (11.5-15.5) % Plt Count (150-450) k/uL Neutrophils # (1.3-7.7) k/uL Lymphocytes # (1.0-4.8) k/uL Sodium (137-145) mmol/L Chloride (98-107) mmol/L Carbon Dioxide (22-30) mmol/L BUN (7-17) mg/dL Creatinine (0.52-1.04) mg/dL Glucose (74-99) mg/dL POC Glucose (mg/dL) 173 H (70-110) mg/dL Calcium (8.4-10.2) mg/dL Microbiology - Last 24 Hours (Table) 10/11/24 01:06 Blood Culture - Preliminary Blood Assessment and Plan Assessment: 1. End-stage renal disease maintained on hemodialysis on Saturday schedule via right upper extremity fistula. 2. Status post fall with left hip fracture status post intramedullary nailing October 08, 2024. 3. Diabetes mellitus. 4. Hypertension with chronic kidney disease. Blood pressure on the lower end. 5. Anemia of chronic kidney disease. Iron replete. On Aranesp. Plan: Hemodialysis in a.m. Increase aranesp
[2024-10-13 23:56] VITALS: RESP 16
[2024-10-14 03:08] LABS: Hepatitis B Surface Antigen Nonreactive (Nonreactive)
[2024-10-14 03:30] LABS: Hepatitis B Surface AB- Quant 3.5 mIU/mL
[2024-10-14 07:04] LABS: Glucose,Whole Blood 169 mg/dL (70-110)
[2024-10-14 07:12] LABS: Anisocytosis Slight; Basophils % (A) 0 %; Eosinophils # (A) 0.2 k/uL (0-0.7); Eosinophils % (A) 2 %; HCT 21.9 % (34.0-46.0); HGB 7.4 gm/dL (11.4-16.0); Lymphocytes # (A) 0.9 k/uL (1.0-4.8); Lymphocytes % (A) 9 %; MCH 31.3 pg (25.0-35.0); MCHC 33.6 g/dL (31.0-37.0); MCV 92.9 fL (80.0-100.0); Mean Platelet Volume 8.8; Monocytes # (A) 0.5 k/uL (0-1.0); Monocytes % (A) 5 %; Neutrophils # (A) 8.3 k/uL (1.3-7.7); Neutrophils % (A) 83 %; Platelet Count 146 k/uL (150-450); RBC 2.36 m/uL (3.80-5.40); RDW 16.3 % (11.5-15.5); WBC 10.1 k/uL (3.8-10.6)
[2024-10-14 07:35] LABS: ALT 36 U/L (4-34); AST 101 U/L (14-36); African American GFR (CKD) 8 (>60 ml/min/1.73 sqM); Albumin 2.7 g/dL (3.5-5.0); Alkaline Phosphatase 82 U/L (38-126); Anion Gap 6 mmol/L; Bilirubin, Delta 0.6 mg/dL (0.0-0.2); Bilirubin,Unconjugated 0.3 mg/dL (0.0-1.1); Blood Urea Nitrogen 43 mg/dL (7-17); Calcium 7.6 mg/dL (8.4-10.2); Carbon Dioxide 33 mmol/L (22-30); Chloride 90 mmol/L (98-107); Glucose 98 mg/dL (74-99); Non-African American GFR(CKD) 7 (>60 ml/min/1.73 sqM); Sodium 129 mmol/L (137-145); Total Bilirubin 0.9 mg/dL (0.2-1.3); Total Protein 4.9 g/dL (6.3-8.2)
[2024-10-14 11:41] LABS: Glucose,Whole Blood 182 mg/dL (70-110)
[2024-10-14] MEDS: IPRATROPIUM-ALBUTEROL 3 ML NEB INHALATION SCH (13:26)
--- NOTE | 2024-10-14 13:36 | P.PN ---
Subjective HISTORY OF PRESENT ILLNESS: 79-year-old female with past medical history of ESRD on hemodialysis, diastolic heart failure, GERD, hypertension, history of breast cancer. She had a mechanical fall resulting in left intertrochanteric fracture. She underwent surgical internal fixation of her hip fracture during last hospital admission. She was discharged to a rehab place yesterday. Apparently patient got more confused and short of breath for which she was sent to the [facility] and thereafter to [facility]. BP 170/68, heart rate 74 bpm Admission Labs: Hemoglobin 7.6, WBC 11.6, BUN 55, creatinine 5.04, troponin elevated at 7.9, repeat 8, repeat 7.9 NT-proBNP 38,000 Admission EKG: Sinus rhythm, heart rate 68 bpm, nonspecific ST segment changes Chest x-ray shows mild increased interstitial marking with no obvious consolidat ion or congestion. Workup at [facility] with CT angiogram did not show any evidence of PE. Prior cardiac testing: Echo from 2019 shows an EF of 55%, moderate concentric LVH, mild MR, mild TR 10/12/2024 Patient examined this morning in the emergency room. Patient remains somewhat confused at the time of examination. She denies any chest pain or pressure. She denies any shortness of breath. Vital signs are stable. Blood pressure 109/60. Bedside telemetry reveals sinus mechanism. 10/13/2024 Patient examined this morning at the bedside. Patient currently denies any chest pain or pressure. She denies any shortness of breath. Echocardiogram completed revealing ejection fraction 55 to 60%, no obvious regional wall motion abnormalities, trace MR, moderate TR, no pericardial effusion 10/14/2024 Patient examined this morning the bedside. Patient is currently undergoing hemodialysis. She denies chest pain or pressure. She denies shortness of breath. Vital signs are stable. PHYSICAL EXAM: VITAL SIGNS: Reviewed. GENERAL: Well-developed in no acute distress. NECK: Supple. No JVD or thyromegaly LUNGS: Respirations even and unlabored. Lungs essentially clear to auscultation bilaterally. HEART: Regular rate and rhythm. S1 and S2 heard. EXTREMITIES: Normal range of motion. No clubbing or cyanosis. Peripheral pulses intact. No lower extremity edema ASSESSMENT: Non-STEMI Acute on chronic hypoxic respiratory failure Metabolic encephalopathy End-stage renal disease on hemodialysis Anemia of chronic disease Severe pulmonary hypertension, may be secondary to end-stage renal disease PLAN: Continue current cardiac medications Continue telemetry monitoring No plans for invasive cardiac procedures at this time Patient is stable for discharge from a cardiac standpoint Patient to follow-up postdischarge with Dr. Abdul Further recommendations pending patient course Nurse practitioner note has been reviewed by physician. Signing provider agrees with the documented findings, assessment, and plan of care documented by TENNIS NET MAKER as a scribe. Objective - Vital Signs Vital signs: Vital Signs Temp 98.4 F 10/14/24 08:28 Pulse 70 10/14/24 08:28 Resp 16 10/14/24 08:28 BP 128/70 10/14/24 08:28 Pulse Ox 96 10/14/24 08:28 FiO2 Intake & Output 10/13/24 10/14/24 10/14/24 18:59 06:59 18:59 Intake Total 128 Balance 128 Weight 85 kg Intake: IV 10 Invasive Line 3 10 Oral 118 Other: # Voids 0 1 1 - Labs CBC & Chem 7: 10/14/24 06:15 10/14/24 06:15 Labs: Abnormal Lab Results - Last 24 Hours (Table) 10/13/24 10/13/24 10/14/24 Range/Units 16:48 20:19 06:15 RBC 2.36 L (3.80-5.40) m/uL Hgb 7.4 L (11.4-16.0) gm/dL Hct 21.9 L (34.0-46.0) % RDW 16.3 H (11.5-15.5) % Plt Count 146 L (150-450) k/uL Neutrophils # 8.3 H (1.3-7.7) k/uL Lymphocytes # 0.9 L (1.0-4.8) k/uL Sodium (137-145) mmol/L Chloride (98-107) mmol/L Carbon Dioxide (22-30) mmol/L BUN (7-17) mg/dL Creatinine (0.52-1.04) mg/dL POC Glucose (mg/dL) 153 H 173 H (70-110) mg/dL Calcium (8.4-10.2) mg/dL Delta Bilirubin (0.0-0.2) mg/dL AST (14-36) U/L ALT (4-34) U/L Total Protein (6.3-8.2) g/dL Albumin (3.5-5.0) g/dL 10/14/24 10/14/24 10/14/24 Range/Units 06:15 07:02 11:39 RBC (3.80-5.40) m/uL Hgb (11.4-16.0) gm/dL Hct (34.0-46.0) % RDW (11.5-15.5) % Plt Count (150-450) k/uL Neutrophils # (1.3-7.7) k/uL Lymphocytes # (1.0-4.8) k/uL Sodium 129 L (137-145) mmol/L Chloride 90 L (98-107) mmol/L Carbon Dioxide 33 H (22-30) mmol/L BUN 43 H (7-17) mg/dL Creatinine 5.57 H (0.52-1.04) mg/dL POC Glucose (mg/dL) 169 H 182 H (70-110) mg/dL Calcium 7.6 L (8.4-10.2) mg/dL Delta Bilirubin 0.6 H (0.0-0.2) mg/dL AST 101 H (14-36) U/L ALT 36 H (4-34) U/L Total Protein 4.9 L (6.3-8.2) g/dL Albumin 2.7 L (3.5-5.0) g/dL Microbiology - Last 24 Hours (Table) 10/11/24 01:06 Blood Culture - Preliminary Blood
[2024-10-14] MEDS: APIXABAN 2.5 MG TABLET PO SCH (14:26)
[2024-10-14 16:38] LABS: Glucose,Whole Blood 167 mg/dL (70-110)
[2024-10-14 17:18] LABS: Allen Test Performed? Yes
[2024-10-14 17:19] LABS: ABG Base Excess 7.5 mmol/L; ABG HCO3 33 mmol/L (21-25); ABG Oxygen Saturation 99.7 % (94-97); ABG PCO2 52 mmHg (35-45); ABG PH 7.41 (7.35-7.45); ABG PO2 151 mmHg (83-108); ABG TCO2 35 mmol/L (19-24)
[2024-10-14 19:55] LABS: Glucose,Whole Blood 120 mg/dL (70-110)
--- NOTE | 2024-10-14 20:30 | P.PN ---
Subjective Patient is seen for follow-up for end-stage renal disease. No significant complaints today. Seen on hemodialysis. Objective - Vital Signs Vital signs: Vital Signs Temp 98.1 F 10/14/24 20:00 Pulse 66 10/14/24 20:00 Resp 16 10/14/24 20:00 BP 147/61 10/14/24 20:00 Pulse Ox 100 10/14/24 20:00 FiO2 Intake & Output 10/14/24 10/14/24 10/15/24 06:59 18:59 06:59 Intake Total 638 10 Output Total 3700 Balance -3062 10 Weight 85 kg Intake: IV 20 10 Invasive Line 3 20 10 Oral 118 Hemodialysis 500 Output: Hemodialysis 2100 Hemodialysis Net Amount 1600 Other: # Voids 1 1 - Exam Patient is awake, comfortable, no acute distress. Examination of the heart S1 and S2 Examination of the lungs bilateral breath sounds are heard Abdomen is soft nontender Examination of lower extremities shows no significant edema STEEL RIGGER exam grossly intact - Labs CBC & Chem 7: 10/14/24 06:15 10/14/24 06:15 Labs: Abnormal Lab Results - Last 24 Hours (Table) 10/14/24 10/14/24 10/14/24 Range/Units 06:15 06:15 07:02 RBC 2.36 L (3.80-5.40) m/uL Hgb 7.4 L (11.4-16.0) gm/dL Hct 21.9 L (34.0-46.0) % RDW 16.3 H (11.5-15.5) % Plt Count 146 L (150-450) k/uL Neutrophils # 8.3 H (1.3-7.7) k/uL Lymphocytes # 0.9 L (1.0-4.8) k/uL ABG pCO2 (35-45) mmHg ABG pO2 (83-108) mmHg ABG HCO3 (21-25) mmol/L ABG Total CO2 (19-24) mmol/L ABG O2 Saturation (94-97) % Hemoglobin (11.4-16.0) gm/dL Sodium 129 L (137-145) mmol/L Chloride 90 L (98-107) mmol/L Carbon Dioxide 33 H (22-30) mmol/L BUN 43 H (7-17) mg/dL Creatinine 5.57 H (0.52-1.04) mg/dL POC Glucose (mg/dL) 169 H (70-110) mg/dL Calcium 7.6 L (8.4-10.2) mg/dL Delta Bilirubin 0.6 H (0.0-0.2) mg/dL AST 101 H (14-36) U/L ALT 36 H (4-34) U/L Total Protein 4.9 L (6.3-8.2) g/dL Albumin 2.7 L (3.5-5.0) g/dL 10/14/24 10/14/24 10/14/24 Range/Units 11:39 16:36 17:13 RBC (3.80-5.40) m/uL Hgb (11.4-16.0) gm/dL Hct (34.0-46.0) % RDW (11.5-15.5) % Plt Count (150-450) k/uL Neutrophils # (1.3-7.7) k/uL Lymphocytes # (1.0-4.8) k/uL ABG pCO2 52 H (35-45) mmHg ABG pO2 151 H (83-108) mmHg ABG HCO3 33 H (21-25) mmol/L ABG Total CO2 35 H (19-24) mmol/L ABG O2 Saturation 99.7 H (94-97) % Hemoglobin 6.8 L* (11.4-16.0) gm/dL Sodium (137-145) mmol/L Chloride (98-107) mmol/L Carbon Dioxide (22-30) mmol/L BUN (7-17) mg/dL Creatinine (0.52-1.04) mg/dL POC Glucose (mg/dL) 182 H 167 H (70-110) mg/dL Calcium (8.4-10.2) mg/dL Delta Bilirubin (0.0-0.2) mg/dL AST (14-36) U/L ALT (4-34) U/L Total Protein (6.3-8.2) g/dL Albumin (3.5-5.0) g/dL 10/14/24 Range/Units 19:54 RBC (3.80-5.40) m/uL Hgb (11.4-16.0) gm/dL Hct (34.0-46.0) % RDW (11.5-15.5) % Plt Count (150-450) k/uL Neutrophils # (1.3-7.7) k/uL Lymphocytes # (1.0-4.8) k/uL ABG pCO2 (35-45) mmHg ABG pO2 (83-108) mmHg ABG HCO3 (21-25) mmol/L ABG Total CO2 (19-24) mmol/L ABG O2 Saturation (94-97) % Hemoglobin (11.4-16.0) gm/dL Sodium (137-145) mmol/L Chloride (98-107) mmol/L Carbon Dioxide (22-30) mmol/L BUN (7-17) mg/dL Creatinine (0.52-1.04) mg/dL POC Glucose (mg/dL) 120 H (70-110) mg/dL Calcium (8.4-10.2) mg/dL Delta Bilirubin (0.0-0.2) mg/dL AST (14-36) U/L ALT (4-34) U/L Total Protein (6.3-8.2) g/dL Albumin (3.5-5.0) g/dL Microbiology - Last 24 Hours (Table) 10/11/24 01:06 Blood Culture - Preliminary Blood Assessment and Plan Assessment: 1. End-stage renal disease maintained on hemodialysis on Saturday schedule via right upper extremity fistula. 2. Status post fall with left hip fracture status post intramedullary nailing October 08, 2024. 3. Diabetes mellitus. 4. Hypertension with chronic kidney disease. Blood pressure on the lower end. 5. Anemia of chronic kidney disease. Iron replete. On Aranesp. Plan: Hemodialysis today.
--- NOTE | 2024-10-15 04:29 | P.PN ---
Subjective 79-year-old woman who arrives as a transfer from [facility]. Patient has history of end-stage renal disease on hemodialysis, history of dementia, history of previous breast cancer, history of hydrocephalus, history of diabetes, history of congestive heart failure. Patient had reportedly gone to the other facility with complaint of dyspnea. Patient is currently resident of [facility], reportedly there is rehab patient following left hip surgery related fracture. On arrival, the patient not able to contribute any additional history does appear to be delirious versus chronic underlying dementia. Transfer papers from the other hospital reveal that the patient did have chest x-ray which was read as being negative for acute cardiopulmonary process. The patient had CT angiogram of the chest that was reported to be negative for pulmonary embolism. There is trace right pleural effusion. She had the of the abdomen and pelvis which was read as negative for acute abdominal process. The patient had labs revealing mild hyponatremia at 131. BUN 45.5, creatinine 4.45, AST 44, ALT 173. BC revealed white count 14.17, hemoglobin 8, platelets 141. Laded to patient's hip fracture she reportedly had fallen 5 days ago, she had internal fixation here at this facility and then was discharged on 118. On arr ival at the rehab facility, patient reportedly to have blood pressure 80/40 with O2 saturations approximately 70%. 10/12 instructed she can I talk to the nurse from 3 This is a pleasant 79 years old female with past medical history of multiple medical problems including end-stage renal disease. She was recently discharged from the hospital for a fall and left intertrochanteric fracture s/p IM nail of the left femur. Dressing is in place and surgical wound closed with no evidence of cellulitis or discharge Was transferred originally from [facility] for UTI, hypoxia and altered mental status, after she was discharged on for for her hip surgery. HPI patient is a 3 cm also patient has been followed by borough coordinator and program director/air personality team. Her troponin were significantly elevated but they flat trend This morning patient is still somewhat confused, she knows she in the hospital but thought it is [place], she could tell it is 2024 and September but she could not tell the date or the name of the president. Also patient is drowsy go back to sleep easily but also arouses easily to verbal stimuli. Denies chest pain or dyspnea currently. Patient does not know much of her history she looks confused and drowsy. She looks little bit tachypneic. She feels little dizzy but no significant headache or weakness or numbness. She has difficulty moving her left leg and patient states this is a chronic. Other than the dyspnea she does not have significant chest pain or coughing Patient states that she denies GI symptoms. She is not sure about her urine sy mptoms but no suprapubic pain or flank tenderness Patient chronically on Eliquis but she cannot remember why she takes Eliquis. Patient states that she is not working even before her fall On admission patient was hypoxic oxygen saturation was 88% on room air on 10/04 currently saturating 97% on 2 to 3 L via nasal cannula. Patient states she was not on oxygen at home Patient denies of pain and tolerates diet well. Not sure about her bowel movement 10/13/2023 Patient is doing well today She is awake and alert denies chest pain or dyspnea. No other new complaint. She feels generally weak and tired Her left leg wound looks clean and healing. Swelling in the left side around the surgical also improving. Patient evaluated by orthopedic team and they recommended to keep monitoring and follow-up outpatient in 1 week Her hemoglobin today dropped to 7.0 from 7.6 yesterday. Anemia workup done 2 days ago showing evidence of anemia of chronic disease with iron studies. No further anemia studies therefore we are going to order B12 and folate tomorrow May consider giving 1 unit of blood transfusion with hemodialysis tomorrow after we discussed up with nephrology team Patient with no evidence of bleeding currently Continue with aspirin and Coreg At looks like hypoxia improving, cardiology following for high troponin suspicious for non-STEMI but patient with no chest pain or dyspnea currently Liver enzymes trending down, keep checking them tomorrow. 10/14 Patient is awake and alert, mildly confused. And she is drowsy as well. She knows she is in [facility] and today the date is September 2024 without exact date at the name of the president, last since yesterday and today. However patient is a bit more drowsy today. Although wake up to verbal stimuli and answer questions shortly thereafter she goes back to sleep before she wakes up again. This could be due to multiple metabolic problems she has like elevator liver enzymes trending down, sodium also slightly low today 125. She is getting hemodialysis today. Also she has chronic anemia. On admission she has acidosis with pH 7.2 and pCO2 mildly elevated. pO2 is acceptable. Blood culture still pending Orthopedic team already evaluated the patient and cleared her for discharge and follow-up in the office in 1 week with her orthopedic doctor. Folate came back today is 15.7 Vitamin B12 still pending CT of the brain is negative for acute process Cardiology team also evaluated the patient for elevated troponin and they recommended no cardiac cath and they are in the process of clearing her We noticed patient is not requesting her breathing treatment therefore we put her on scheduled DuoNeb twice daily. Patient can be downgraded to general medical floor though. Review of systems CONSTITUTIONAL: No fever, no malaise, no fatigue. HEENT: No recent visual problems or hearing problems. Denied any sore throat. PULMONARY: No shortness of breath, no cough, no hemoptysis. GENITOURINARY: Denies any burning micturition, frequency, or urgency. MUSCULOSKELETAL/RHEUMATOLOGICAL: Denies any joint pain, swelling, or any muscle pain. ENDOCRINE: Denies any polyuria or polydipsia. Active Medications Generic Name Dose Route Start Last Admin Trade Name Freq PRN Reason Stop Dose Admin Hydrocodone Bitart/Acetaminophen 1 each 10/11/24 11:02 10/14/24 08:30 Hydrocodone/Apap 5-325mg 1 Each Tab PO 1 each Q6H PRN Administration Pain Albuterol/Ipratropium 3 ml 10/12/24 14:13 Ipratropium-Albuterol 3 Ml Neb INHALATION RT-QID PRN Shortness Of Breath Or Wheezing Aspirin 81 mg 10/12/24 09:00 10/14/24 08:30 Aspirin 81 Mg PO 81 mg DAILY [place] Administration Atorvastatin Calcium 40 mg 10/11/24 21:00 10/13/24 20:32 Atorvastatin 40 Mg Tab PO 40 mg HS [place] Administration Carvedilol 12.5 mg 10/11/24 17:30 10/14/24 06:47 Carvedilol 12.5 Mg Tab PO 12.5 mg BID-W/MEALS [place] Administration Darbepoetin Bryant 80 mcg 10/15/24 09:00 Darbepoetin Bryant 100mcg/0.5ml Syringe SQ Q7D [place] Ferrous Sulfate 325 mg 10/12/24 09:00 10/14/24 08:30 Ferrous Sulfate 325 Mg Tab PO 325 mg DAILY [place] Administration Hydralazine HCl 50 mg 10/11/24 16:00 10/13/24 20:32 Hydralazine Hcl 50 Mg Tab PO 50 mg TID [place] Administration Hydralazine HCl 10 mg 10/11/24 11:09 Hydralazine Hcl 20 Mg/Ml 1 Ml Vial IVP Q6HR PRN Blood Pressure - High Isosorbide Mononitrate 30 mg 10/12/24 09:00 10/13/24 08:21 Isosorbide Mononitrate Er 30 Mg Tab.Er.24h PO 30 mg DAILY [place] Administration Losartan Potassium 50 mg 10/11/24 21:00 10/13/24 20:32 Losartan 50 Mg Tab PO 50 mg BID [place] Administration Melatonin 5 mg 10/11/24 21:00 10/13/24 20:32 Melatonin 5 Mg Tablet PO 5 mg HS [place] Administration Multivitamins 1 each 10/12/24 09:00 10/13/24 08:21 Multivitamins, Thera 1 Each Tab PO 1 each DAILY [place] Administration Nitroglycerin 0.4 mg 10/11/24 03:37 Nitroglycerin Sl Tabs 0.4 Mg Tab SUBLINGUAL Q5M PRN Chest Pain Pantoprazole Sodium 40 mg 10/12/24 09:00 10/14/24 08:30 Pantoprazole 40 Mg Tablet PO 40 mg DAILY [place] Administration Sevelamer Carbonate 800 mg 10/11/24 11:02 Sevelamer 800 Mg Tab PO BID PRN SNACKS Sevelamer Carbonate 1,600 mg 10/11/24 12:30 10/14/24 06:47 Sevelamer 800 Mg Tab PO 1,600 mg TID-W/MEALS [place] Administration Thiamine HCl 100 mg 10/12/24 09:00 10/13/24 08:21 Thiamine 100 Mg Tab PO 100 mg DAILY [place] Administration Trazodone HCl 75 mg 10/11/24 21:00 10/13/24 20:31 Trazodone Hcl 50 Mg Tab PO 75 mg HS [place] Administration Objective - Vital Signs Vital signs: Vital Signs Temp 98.4 F 10/14/24 08:28 Pulse 70 10/14/24 08:28 Resp 16 10/14/24 08:28 BP 128/70 10/14/24 08:28 Pulse Ox 96 10/14/24 08:28 FiO2 Intake & Output 10/13/24 10/14/24 10/14/24 18:59 06:59 18:59 Intake Total 128 Balance 128 Weight 85 kg Intake: IV 10 Invasive Line 3 10 Oral 118 Other: # Voids 0 1 1 - Exam --GENERAL: The patient is alert and oriented x2-3 partially, mildly drowsy, not in any acute distress. Well developed, well nourished. Obese HEENT: Pupils are round and equally reacting to light. EOMI. No scleral icterus. No conjunctival pallor. Normocephalic, atraumatic. No pharyngeal erythema. No thyromegaly. CARDIOVASCULAR: S1 and S2 present. No murmurs, rubs, or gallops. -PULMONARY: Chest is clear to auscultation, no wheezing , no crackles. Mildly tachypneic ABDOMEN: Soft, nontender, nondistended, normoactive bowel sounds. No palpable organomegaly. MUSCULOSKELETAL: No joint swelling or deformity. -EXTREMITIES: No cyanosis, clubbing, or pedal edema. Left leg is swollen, surgical wound is closed with dressing in place. No significant discharge or cellulitis NEUROLOGICAL: Gross neurological examination did not reveal any focal deficits. SKIN: No rashes. no petechiae. - Labs CBC & Chem 7: 10/14/24 06:15 10/14/24 06:15 Labs: Abnormal Lab Results - Last 24 Hours (Table) 10/13/24 10/13/24 10/14/24 Range/Units 16:48 20:19 06:15 RBC 2.36 L (3.80-5.40) m/uL Hgb 7.4 L (11.4-16.0) gm/dL Hct 21.9 L (34.0-46.0) % RDW 16.3 H (11.5-15.5) % Plt Count 146 L (150-450) k/uL Neutrophils # 8.3 H (1.3-7.7) k/uL Lymphocytes # 0.9 L (1.0-4.8) k/uL Sodium (137-145) mmol/L Chloride (98-107) mmol/L Carbon Dioxide (22-30) mmol/L BUN (7-17) mg/dL Creatinine (0.52-1.04) mg/dL POC Glucose (mg/dL) 153 H 173 H (70-110) mg/dL Calcium (8.4-10.2) mg/dL Delta Bilirubin (0.0-0.2) mg/dL AST (14-36) U/L ALT (4-34) U/L Total Protein (6.3-8.2) g/dL Albumin (3.5-5.0) g/dL 10/14/24 10/14/24 10/14/24 Range/Units 06:15 07:02 11:39 RBC (3.80-5.40) m/uL Hgb (11.4-16.0) gm/dL Hct (34.0-46.0) % RDW (11.5-15.5) % Plt Count (150-450) k/uL Neutrophils # (1.3-7.7) k/uL Lymphocytes # (1.0-4.8) k/uL Sodium 129 L (137-145) mmol/L Chloride 90 L (98-107) mmol/L Carbon Dioxide 33 H (22-30) mmol/L BUN 43 H (7-17) mg/dL Creatinine 5.57 H (0.52-1.04) mg/dL POC Glucose (mg/dL) 169 H 182 H (70-110) mg/dL Calcium 7.6 L (8.4-10.2) mg/dL Delta Bilirubin 0.6 H (0.0-0.2) mg/dL AST 101 H (14-36) U/L ALT 36 H (4-34) U/L Total Protein 4.9 L (6.3-8.2) g/dL Albumin 2.7 L (3.5-5.0) g/dL Microbiology - Last 24 Hours (Table) 10/11/24 01:06 Blood Culture - Preliminary Blood Assessment and Plan Assessment: 1. Elevated troponin; NSTEMI with flat pattern, evaluated by borough coordinator and echocardiogram is showing ejection fraction 55 to 60% with RVSP 62 and moderate tricuspid regurgitation. Cardiology recommended no cardiac cath 2. Hypoxia; patient had reports of hypoxia with O2 saturation in 70s; upon arrival to ED patient's O2 saturation was found to be around 98%. Improvement. Will add DuoNebs 3. Altered mental status; likely metabolic encephalopathy. Resolved 4. End-stage renal disease/HD; patient has a dialysis scheduled for Saturday and Saturday 5. Transaminitis; AST/ALT markedly elevated; 6. Hypertension; we will continue with home dose of Coreg 12.5 mg twice daily, hydralazine 50 mg 3 times daily and losartan 50 mg twice daily 7. Hyperlipidemia; Lipitor 40 mg p.o. nightly 8. Anemia of chronic disease; hemoglobin on the low side may consider 1 unit of blood transfusion. Iron studies showing anemia of chronic disease, check vitamin B12 and folate 9. Status post fall and recent hip fracture status post IM nail on 10/08/2024 evaluated by orthopedic team again during this admission and recommended to continue follow-up as an outpatient in 1 week GI prophylaxis: Pepcid DVT prophylaxis: Mechanical and aspirin per orthopedic team recommendation Prognosis is guarded Plan: Cardiology consult recommend no cardiac cath echocardiogram reviewed with preserved ejection fraction Continue with aspirin and Coreg Check ABG showing mild hypoxia. Added breathing treatment and ammonia level unremarkable. Liver enzymes trending down continue with eliquis Left hip surgical wound looks clean Nephrology consult Cardiology consult Resume home medication GI prophylaxis with Protonix DVT prophylaxis mechanical and on Eliquis Prognosis guarded
[2024-10-15 05:46] LABS: Glucose,Whole Blood 88 mg/dL (70-110)
[2024-10-15 06:25] LABS: Anisocytosis Slight; Basophils % (A) 0 %; Eosinophils # (A) 0.2 k/uL (0-0.7); Eosinophils % (A) 2 %; HCT 22.3 % (34.0-46.0); HGB 7.4 gm/dL (11.4-16.0); Hypochromasia Slight; Lymphocytes # (A) 0.9 k/uL (1.0-4.8); Lymphocytes % (A) 9 %; MCH 31.5 pg (25.0-35.0); MCHC 33.2 g/dL (31.0-37.0); MCV 94.8 fL (80.0-100.0); Mean Platelet Volume 8.2; Monocytes # (A) 0.5 k/uL (0-1.0); Monocytes % (A) 6 %; Neutrophils # (A) 7.8 k/uL (1.3-7.7); Neutrophils % (A) 82 %; Platelet Count 131 k/uL (150-450); RBC 2.35 m/uL (3.80-5.40); WBC 9.5 k/uL (3.8-10.6)
[2024-10-15 07:03] LABS: ALT 16 U/L (4-34); AST 71 U/L (14-36); African American GFR (CKD) 11 (>60 ml/min/1.73 sqM); Albumin 2.5 g/dL (3.5-5.0); Alkaline Phosphatase 77 U/L (38-126); Anion Gap 4 mmol/L; Bilirubin, Delta 0.4 mg/dL (0.0-0.2); Bilirubin,Unconjugated 0.3 mg/dL (0.0-1.1); Blood Urea Nitrogen 27 mg/dL (7-17); Calcium 7.5 mg/dL (8.4-10.2); Carbon Dioxide 34 mmol/L (22-30); Chloride 93 mmol/L (98-107); Glucose 76 mg/dL (74-99); Non-African American GFR(CKD) 10 (>60 ml/min/1.73 sqM); Sodium 131 mmol/L (137-145); Total Bilirubin 0.7 mg/dL (0.2-1.3); Total Protein 4.7 g/dL (6.3-8.2)
[2024-10-15] MEDS: DARBEPOETIN ALFA 100MCG/0.5ML SYRINGE SQ SCH (08:57)
[2024-10-15] MEDS ORDERED: DARBEPOETIN ALFA 40 MCG/0.4 ML SYRINGE SQ SCH (09:00)
[2024-10-15 09:26] VITALS: TEMP 96.7
[2024-10-15 11:33] VITALS: BP 133/60; PULSE 74
[2024-10-15 11:48] LABS: Glucose,Whole Blood 107 mg/dL (70-110)
--- NOTE | 2024-10-15 13:16 | P.DS ---
Providers Date of admission: 10/11/24 03:37 Expected date of discharge: 10/15/24 Attending physician: Duarte Mednez Consults: 10/11/24 03:37 Consult Physician Routine Consulting Provider: Derrell Lucas Consult Reason/Comments: ESRD patient, had contrast CT prior to transfer Do you want consulting provider notified?: Already Contacted Consult Physician Routine Consulting Provider: Jose Abdul Consult Reason/Comments: NSTEMI Do you want consulting provider notified?: Already Contacted 10/13/24 09:38 Consult Physician Routine Consulting Provider: Madhav Caceres Consult Reason/Comments: recent hip surgery with you Do you want consulting provider notified?: Yes Primary care physician: Robin Sosa Hospital Course: Discharge diagnoses; 1. Elevated troponin; NSTEMI with flat pattern, evaluated by wood boatbuilder and echocardiogram is showing ejection fraction 55 to 60% with RVSP 62 and moderate tricuspid regurgitation. Cardiology recommended no cardiac cath 2. Hypoxia; patient had reports of hypoxia with O2 saturation in 70s; upon arrival to ED patient's O2 saturation was found to be around 98%. Improvement. Will add DuoNebs 3. Altered mental status; likely metabolic encephalopathy. Resolved 4. End-stage renal disease/HD; patient has a dialysis scheduled for Saturday and Saturday 5. Transaminitis; AST/ALT markedly elevated; 6. Hypertension; we will continue with home dose of Coreg 12.5 mg twice daily, hydralazine 50 mg 3 times daily and losartan 50 mg twice daily 7. Hyperlipidemia; Lipitor 40 mg p.o. nightly 8. Anemia of chronic disease; monitor CBC 9. Status post fall and recent hip fracture status post IM nail on 10/08/2024 evaluated by orthopedic team again during this admission and recommended to continue follow-up as an outpatient in 1 week Hospital course; 79-year-old woman who arrives as a transfer from [facility]. Patient has history of end-stage renal disease on hemodialysis, history of dementia, history of previous breast cancer, history of hydrocephalus, history of diabetes, history of congestive heart failure. Patient had reportedly gone to the other facility with complaint of dyspnea. Patient is currently resident of [facility], reportedly there is rehab patient following left hip surgery related fracture. On arrival, the patient not able to contribute any additional history does appear to be delirious versus chronic underlying dementia. Transfer papers from the other hospital reveal that the patient did have chest x-ray which was read as being negative for acute cardiopulmonary process. The patient had CT angiogram of the chest that was reported to be negative for pulmonary embolism. There is trace right pleural effusion. She had the of the abdomen and pelvis which was read as negative for acute abdominal process. The patient had labs revealing mild hyponatremia at 131. BUN 45.5, creatinine 4.45, AST 44, ALT 173. BC revealed white count 14.17, hemoglobin 8, platelets 141. Laded to patient's hip fracture she reportedly had fallen 5 days ago, she had internal fixation here at this facility and then was discharged on 118. On arrival at the rehab facility, patient reportedly to have blood pressure 80/40 with O2 saturations approximately 70%. 10/12 instructed she can I talk to the nurse from 3 This is a pleasant 79 years old female with past medical history of multiple medical problems including end-stage renal disease. She was recently discharged from the hospital for a fall and left intertrochanteric fracture s/p IM nail of the left femur. Dressing is in place and surgical wound closed with no evidence of cellulitis or discharge Was transferred originally from [facility] for UTI, hypoxia and altered mental status, after she was discharged on for for her hip surgery. HPI patient is a 3 cm also patient has been followed by wood boatbuilder and medical coding technician team. Her troponin were significantly elevated but they flat trend This morning patient is still somewhat confused, she knows she in the hospital but thought it is [place], she could tell it is 2024 and September but she could not tell the date or the name of the president. Also patient is drowsy go back to sleep easily but also arouses easily to verbal stimuli. Denies chest pain or dyspnea currently. Patient does not know much of her history she looks confused and drowsy. She looks little bit tachypneic. She feels little dizzy but no significant headache or weakness or numbness. She has difficulty moving her left leg and patient states this is a chronic. Other than the dyspnea she does not have significant chest pain or coughing Patient states that she denies GI symptoms. She is not sure about her urine symptoms but no suprapubic pain or flank tenderness Patient chronically on Eliquis but she cannot remember why she takes Eliquis. Patient states that she is not working even before her fall On admission patient was hypoxic oxygen saturation was 88% on room air on 10/04 currently saturating 97% on 2 to 3 L via nasal cannula. Patient states she was not on oxygen at home Patient denies of pain and tolerates diet well. Not sure about her bowel movement 10/13/2023 Patient is doing well today She is awake and alert denies chest pain or dyspnea. No other new complaint. She feels generally weak and tired Her left leg wound looks clean and healing. Swelling in the left side around the surgical also improving. Patient evaluated by orthopedic team and they recommended to keep monitoring and follow-up outpatient in 1 week Her hemoglobin today dropped to 7.0 from 7.6 yesterday. Anemia workup done 2 days ago showing evidence of anemia of chronic disease with iron studies. No further anemia studies therefore we are going to order B12 and folate tomorrow May consider giving 1 unit of blood transfusion with hemodialysis tomorrow after we discussed up with nephrology team Patient with no evidence of bleeding currently Continue with aspirin and Coreg At looks like hypoxia improving, cardiology following for high troponin suspicious for non-STEMI but patient with no chest pain or dyspnea currently Liver enzymes trending down, keep checking them tomorrow. 10/14 Patient is awake and alert, mildly confused. And she is drowsy as well. She knows she is in [facility] and today the date is September 2024 without exact date at the name of the president, last since yesterday and today. However patient is a bit more drowsy today. Although wake up to verbal stimuli and answer questions shortly thereafter she goes back to sleep before she wakes up again. This could be due to multiple metabolic problems she has like elevator liver enzymes trending down, sodium also slightly low today 125. She is getting hemodialysis today. Also she has chronic anemia. On admission she has acidosis with pH 7.2 and pCO2 mildly elevated. pO2 is acceptable. Blood culture still pending Orthopedic team already evaluated the patient and cleared her for discharge and follow-up in the office in 1 week with her orthopedic doctor. Folate came back today is 15.7 Vitamin B12 still pending CT of the brain is negative for acute process Cardiology team also evaluated the patient for elevated troponin and they recommended no cardiac cath and they are in the process of clearing her We noticed patient is not requesting her breathing treatment therefore we put her on scheduled DuoNeb twice daily. Patient can be downgraded to general medical floor though. 10/15. Patient seen and examined. Patient is doing better. Patient has been cleared by cardiology for discharge. PHYSICAL EXAMINATION: GENERAL: The patient is alert and oriented x3, not in any acute distress. Well developed, well nourished. HEENT: Pupils are round and equally reacting to light. EOMI. No scleral icterus. No conjunctival pallor. Normocephalic, atraumatic. No pharyngeal erythema. No thyromegaly. CARDIOVASCULAR: S1 and S2 present. No murmurs, rubs, or gallops. PULMONARY: Chest is clear to auscultation, no wheezing or crackles. ABDOMEN: Soft, nontender, nondistended, normoactive bowel sounds. No palpable organomegaly. MUSCULOSKELETAL: No joint swelling or deformity. EXTREMITIES: No cyanosis, clubbing, or pedal edema. NEUROLOGICAL: Gross neurological examination did not reveal any focal deficits. SKIN: No rashes. Dictation was produced using [employer] dictation software. please excuse any grammatical, word or spelling errors. Patient Condition at Discharge: Fair Plan - Discharge Summary Discharge Rx Participant: No New Discharge Prescriptions: New Aspirin 81 mg PO DAILY #30 tab Isosorbide Mononitrate ER [Imdur] 30 mg PO DAILY 30 Days #30 tab Atorvastatin [Lipitor] 40 mg PO HS #30 tab Ipratropium-Albuterol Nebulize [Duoneb 0.5 mg-3 mg/3 ml Soln] 3 ml INHALATION RT-QID PRN 30 Days #120 each PRN Reason: Shortness Of Breath Or Wheezing Nitroglycerin Sl Tabs [Nitrostat] 0.4 mg SUBLINGUAL Q5M PRN #30 tab PRN Reason: Chest Pain Continue Sevelamer [Renvela] 1,600 mg PO TID Apixaban [Eliquis] 2.5 mg PO BID Thiamine [Vitamin B-1] 100 mg PO DAILY Ondansetron [Zofran] 4 mg PO Q6H PRN PRN Reason: Nausea And Vomiting Loperamide [Imodium] 2 mg PO Q8H PRN PRN Reason: Diarrhea hydrALAZINE HCL [Apresoline] 50 mg PO TID Losartan Potassium 50 mg PO BID bisacodyL [Dulcolax] 10 mg RECTAL DAILY PRN PRN Reason: Constipation carvediloL [Coreg] 12.5 mg PO BID Lidocaine-Prilocaine Cream [Emla Cream 2.5%/2.5%] 1 applic TOPICAL MOWEFR Sevelamer [Renvela] 800 mg PO DIRECTED PRN PRN Reason: snacks Sodium Chloride [Saline Nasal Mist] 1 spray EA NOSTRIL Q2H PRN PRN Reason: Nasal Congestion Omeprazole 20 mg PO DAILY Ferrous Sulfate [Iron (65 MG Elemental)] 325 mg PO BID Ergocalciferol (Vitamin D2) [Drisdol (50,000 Iu)] 1,250 mcg PO TH L.acidoph,Paracasei, B.lactis [Probiotic] 1 cap PO DAILY Acetaminophen [Tylenol 8 Hour] 650 mg PO BID Benzonatate [Tessalon Perles] 100 mg PO TID guaiFENesin-DM 100-10MG/5ML [Robitussin DM] 10 ml PO Q6H PRN PRN Reason: Cough Melatonin 5 mg PO HS traZODone HCL [Desyrel] 75 mg PO HS Daily Nellie 1 tab PO DAILY HYDROcodone/APAP 7.5-325MG [Corona 7.5-325] 1 tab PO Q6HR PRN 3 Days #12 tab PRN Reason: Pain Discontinued Acetaminophen Tab [Tylenol] 650 mg PO Q6H PRN MDD 3000mg PRN Reason: general discomfort Atorvastatin [Lipitor] 80 mg PO HS Discharge Medication List Sevelamer [Renvela] 1,600 mg PO TID 06/19/20 [History] Apixaban [Eliquis] 2.5 mg PO BID 07/01/20 [History] Ergocalciferol (Vitamin D2) [Drisdol (50,000 Iu)] 1,250 mcg PO TH 12/04/22 [History] Ferrous Sulfate [Iron (65 MG Elemental)] 325 mg PO BID 12/04/22 [History] Loperamide [Imodium] 2 mg PO Q8H PRN 12/04/22 [History] Omeprazole 20 mg PO DAILY 12/04/22 [History] Ondansetron [Zofran] 4 mg PO Q6H PRN 12/04/22 [History] Thiamine [Vitamin B-1] 100 mg PO DAILY 12/04/22 [History] L.acidoph,Paracasei, B.lactis [Probiotic] 1 cap PO DAILY 02/07/23 [History] Losartan Potassium 50 mg PO BID 02/07/23 [History] hydrALAZINE HCL [Apresoline] 50 mg PO TID 02/07/23 [History] Acetaminophen [Tylenol 8 Hour] 650 mg PO BID 10/07/24 [History] Benzonatate [Tessalon Perles] 100 mg PO TID 10/07/24 [History] Lidocaine-Prilocaine Cream [Emla Cream 2.5%/2.5%] 1 applic TOPICAL MOWEFR 10/07/24 [History] Melatonin 5 mg PO HS 10/07/24 [History] Sevelamer [Renvela] 800 mg PO DIRECTED PRN 10/07/24 [History] Sodium Chloride [Saline Nasal Mist] 1 spray EA NOSTRIL Q2H PRN 10/07/24 [History] bisacodyL [Dulcolax] 10 mg RECTAL DAILY PRN 10/07/24 [History] carvediloL [Coreg] 12.5 mg PO BID 10/07/24 [History] guaiFENesin-DM 100-10MG/5ML [Robitussin DM] 10 ml PO Q6H PRN 10/07/24 [History] traZODone HCL [Desyrel] 75 mg PO HS 10/07/24 [History] Daily Nellie 1 tab PO DAILY 10/11/24 [History] Aspirin 81 mg PO DAILY #30 tab 10/15/24 [Rx] Atorvastatin [Lipitor] 40 mg PO HS #30 tab 10/15/24 [Rx] HYDROcodone/APAP 7.5-325MG [Corona 7.5-325] 1 tab PO Q6HR PRN 3 Days #12 tab 10/15/24 [Rx] Ipratropium-Albuterol Nebulize [Duoneb 0.5 mg-3 mg/3 ml Soln] 3 ml INHALATION RT-QID PRN 30 Days #120 each 10/15/24 [Rx] Isosorbide Mononitrate ER [Imdur] 30 mg PO DAILY 30 Days #30 tab 10/15/24 [Rx] Nitroglycerin Sl Tabs [Nitrostat] 0.4 mg SUBLINGUAL Q5M PRN #30 tab 10/15/24 [Rx] Follow up Appointment(s)/Referral(s): Jose Abdul MD [Medical Doctor] - 1 Week Rubén Cervantes PAC [PHYSICIAN CREDIT ASSESSMENT ANALYST] - 10/22/24 Robin Sosa MD [Primary Care Provider] - 1-2 days
--- NOTE | 2024-10-15 18:21 | P.PN ---
Subjective Patient is seen for follow-up for end-stage renal disease. No significant complaints today. Status post hemodialysis yesterday. Objective - Vital Signs Vital signs: Vital Signs Temp 96.7 F L 10/15/24 09:00 Pulse 74 10/15/24 11:31 Resp 16 10/15/24 11:31 BP 133/60 10/15/24 11:31 Pulse Ox 100 10/15/24 11:31 FiO2 Intake & Output 10/14/24 10/15/24 10/15/24 18:59 06:59 18:59 Intake Total 638 20 10 Output Total 3700 Balance -3062 20 10 Weight 84.5 kg Intake: IV 20 20 10 Invasive Line 3 20 20 10 Oral 118 Hemodialysis 500 Output: Hemodialysis 2100 Hemodialysis Net Amount 1600 Other: # Voids 1 0 0 # Bowel Movements 0 - Exam Patient is awake, comfortable, no acute distress. Examination of the heart S1 and S2 Examination of the lungs bilateral breath sounds are heard Abdomen is soft nontender Examination of lower extremities shows no significant edema PALEONTOLOGICAL HELPER exam grossly intact - Labs CBC & Chem 7: 10/15/24 06:05 10/15/24 06:05 Labs: Abnormal Lab Results - Last 24 Hours (Table) 10/14/24 10/14/24 10/15/24 Range/Units 06:15 19:54 06:05 RBC 2.35 L (3.80-5.40) m/uL Hgb 7.4 L (11.4-16.0) gm/dL Hct 22.3 L (34.0-46.0) % RDW 16.0 H (11.5-15.5) % Plt Count 131 L (150-450) k/uL Neutrophils # 7.8 H (1.3-7.7) k/uL Lymphocytes # 0.9 L (1.0-4.8) k/uL Sodium (137-145) mmol/L Chloride (98-107) mmol/L Carbon Dioxide (22-30) mmol/L BUN (7-17) mg/dL Creatinine (0.52-1.04) mg/dL POC Glucose (mg/dL) 120 H (70-110) mg/dL Calcium (8.4-10.2) mg/dL Delta Bilirubin (0.0-0.2) mg/dL AST (14-36) U/L Total Protein (6.3-8.2) g/dL Albumin (3.5-5.0) g/dL Vitamin B12 2839.0 H (200.0-944.0) pg/mL 10/15/24 Range/Units 06:05 RBC (3.80-5.40) m/uL Hgb (11.4-16.0) gm/dL Hct (34.0-46.0) % RDW (11.5-15.5) % Plt Count (150-450) k/uL Neutrophils # (1.3-7.7) k/uL Lymphocytes # (1.0-4.8) k/uL Sodium 131 L (137-145) mmol/L Chloride 93 L (98-107) mmol/L Carbon Dioxide 34 H (22-30) mmol/L BUN 27 H (7-17) mg/dL Creatinine 4.09 H (0.52-1.04) mg/dL POC Glucose (mg/dL) (70-110) mg/dL Calcium 7.5 L (8.4-10.2) mg/dL Delta Bilirubin 0.4 H (0.0-0.2) mg/dL AST 71 H (14-36) U/L Total Protein 4.7 L (6.3-8.2) g/dL Albumin 2.5 L (3.5-5.0) g/dL Vitamin B12 (200.0-944.0) pg/mL Assessment and Plan Assessment: 1. End-stage renal disease maintained on hemodialysis on Saturday schedule via right upper extremity fistula. 2. Status post fall with left hip fracture status post intramedullary nailing J anuary 2024. 3. Diabetes mellitus. 4. Hypertension with chronic kidney disease. Blood pressure on the lower end. 5. Anemia of chronic kidney disease. Iron replete. On Aranesp. Plan: Hemodialysis on Saturday schedule.
--- NOTE | 2024-10-15 22:20 | PN ---
PROGRESS NOTE SUBJECTIVE: Kristin is an 79-year-old lady with history of end-stage renal disease, on hemodialysis, diastolic heart failure, hypertension, breast cancer, who has had a mechanical fall and had left hip fracture and underwent surgery at last admission. She was discharged home from rehab and subsequently developed confusion and came back to hospital. We were consulted because of elevated troponins. She has severe pulmonary hypertension secondary to end-stage renal disease. OBJECTIVE: GENERAL: Comfortable at rest. VITAL SIGNS: Stable. CHEST: Reveals good air entry bilaterally. HEART: Reveals first and second heart sounds. No gallop. EXTREMITIES: Did not reveal any edema. LABORATORY DATA: Labs show a potassium of 4, BUN is 27, creatinine is 4. Hemoglobin is 7.4. ASSESSMENT: 1. Non ST elevation myocardial infarction. 2. Acute on chronic hypoxic heart failure. 3. End-stage renal disease, on hemodialysis. PLAN: I will continue her on her current medications. MMODL / IJN: [id number] /
== END 2024-10-15 15:00 | DRG 280 ==
LOC: EC 00:33 → 3SCARD 03:37
PROVIDERS: ADMIT Hospitalist; ATTEND Hospitalist
PROC: 5A1D70Z Performance of Urinary Filtration, Intermittent, Less than 6 Hours Per Day (ICD-10-PCS; principal; 2024-10-12)
DX: I21.4 Non-ST elevation (NSTEMI) myocardial infarction (principal); G93.41 Metabolic encephalopathy; N18.6 End stage renal disease; J96.21 Acute and chronic respiratory failure with hypoxia; K72.00 Acute and subacute hepatic failure without coma; I13.2 Hypertensive heart and chronic kidney disease with heart failure and with stage 5 chronic kidney disease, or end stage renal disease; Z99.2 Dependence on renal dialysis; D63.1 Anemia in chronic kidney disease; E11.22 Type 2 diabetes mellitus with diabetic chronic kidney disease; F03.90 Unspecified dementia, unspecified severity, without behavioral disturbance, psychotic disturbance, mood disturbance, and anxiety; I07.1 Rheumatic tricuspid insufficiency; I27.29 Other secondary pulmonary hypertension; I50.32 Chronic diastolic (congestive) heart failure; N39.0 Urinary tract infection, site not specified; E87.1 Hypo-osmolality and hyponatremia; E87.20 Acidosis, unspecified; E11.319 Type 2 diabetes mellitus with unspecified diabetic retinopathy without macular edema; E78.5 Hyperlipidemia, unspecified; I25.10 Atherosclerotic heart disease of native coronary artery without angina pectoris; H54.7 Unspecified visual loss; Z96.1 Presence of intraocular lens; W19.XXXD Unspecified fall, subsequent encounter; E11.42 Type 2 diabetes mellitus with diabetic polyneuropathy; S72.142D Displaced intertrochanteric fracture of left femur, subsequent encounter for closed fracture with routine healing; Z79.01 Long term (current) use of anticoagulants; Z79.82 Long term (current) use of aspirin; Z79.899 Other long term (current) drug therapy; Z85.3 Personal history of malignant neoplasm of breast; Z87.891 Personal history of nicotine dependence; Z98.42 Cataract extraction status, left eye; Z98.41 Cataract extraction status, right eye
CPT/HCPCS: 36415; 36600; 51798; 70450; 71045; 80048; 80053; 80061; 80076; 82140; 82607; 82728; 82746; 82805; 83540; 83550; 83605; 83880; 84484; 85025; 85610; 85730; 86706; 87040; 87340; 90935; 93005; 93306; 94640; 94760; 96361; 96365; 96366; 99291